=== PATIENT | male | born 1955 | race Caucasian/White ===

== ENCOUNTER 2024-07-30 11:03 | Outpatient (OUT) | payer OTHER, SELFPAY ==
--- NOTE | 2024-07-30 | XR_ITS ---
The [address] [address] Patient Name: GEO CARRASQUILLO MRN: [id number] date: 1955 Sex: M Assigned Patient Location: Current Patient Location: Accession/Order Number: [id number] Exam Date: 07/30/2024 11:22 Report Date: 08/01/2024 07:01 At the request of: ANANT MALIK Procedure: XR foot LT min 3V PROCEDURE: XR ankle LT min 3V, XR foot LT min 3V COMPARISON: None. HISTORY: LEFT ANKLE PAIN FINDINGS: BONES:Ankle fusion utilizing a retrograde intramedullary nail and proximally and distally. Some lucency surrounding the nail could represent loosening. Interval change cannot be determined as there are no prior comparisons. Degenerative changes with joint space narrowing and marginal osteophyte formation. 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 SOFT TISSUES:Negative. No visible soft tissue swelling. EFFUSION:None visible. OTHER: Negative. XR/XR foot LT min 3V IMPRESSION: Ankle fusion with suspected loosening. No mechanical failure Electronically authenticated by: CAS MENDIOLA Date: 08/01/2024 07:01
--- NOTE | 2024-07-30 | XR_ITS ---
The [address] [address] Patient Name: GEO CARRASQUILLO MRN: [id number] date: 1955 Sex: M Assigned Patient Location: Current Patient Location: Accession/Order Number: [id number] Exam Date: 07/30/2024 11:22 Report Date: 08/01/2024 07:01 At the request of: ANANT MALIK Procedure: XR ankle LT min 3V PROCEDURE: XR ankle LT min 3V, XR foot LT min 3V COMPARISON: None. HISTORY: LEFT ANKLE PAIN FINDINGS: BONES:Ankle fusion utilizing a retrograde intramedullary nail and proximally and distally. Some lucency surrounding the nail could represent loosening. Interval change cannot be determined as there are no prior comparisons. Degenerative changes with joint space narrowing and marginal osteophyte formation. 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 SOFT TISSUES:Negative. No visible soft tissue swelling. EFFUSION:None visible. OTHER: Negative. XR/XR ankle LT min 3V IMPRESSION: Ankle fusion with suspected loosening. No mechanical failure Electronically authenticated by: CAS MENDIOLA Date: 08/01/2024 07:01
== END 2024-07-30 11:04 | disposition home or self-care (01) ==
PROVIDERS: Visit Provider Podiatrist Foot & Ankle Surgery
DX: M25.572 Pain in left ankle and joints of left foot (principal); M24.672 Ankylosis, left ankle
CPT/HCPCS: 73610; 73630

== ENCOUNTER 2024-09-04 11:53 | Outpatient (OUT) | payer OTHER, SELFPAY | END 2024-09-04 11:54 | disposition home or self-care (01) | PROVIDERS: Visit Provider Podiatrist Foot & Ankle Surgery | DX: Z01.818 Encounter for other preprocedural examination (principal); M19.072 Primary osteoarthritis, left ankle and foot; M96.0 Pseudarthrosis after fusion or arthrodesis ==

== ENCOUNTER 2024-09-17 07:14 | Day surgery (SDC) | payer OTHER, SELFPAY ==
[2024-09-04 12:01] VITALS: BP 178/84; PULSE 106; TEMP 36.3; O2SAT 96; BMI 31.5
--- NOTE | 2024-09-16 15:44 | SWNOTE1 ---
DARIUS received a phone call from Marleny at [facility]. This patient will be coming tomorrow and having a surgery by Dr. Pringle. Pt will need wheelchair, per pt's request. Pt only has [employer] [place]. Unsure if any DME will run it through pt's [employer] insurance. Marleny will request Dr. Pringle write a script and document need for wheelchair. DARIUS will work on it tomorrow. Pt may be better to go to a [employer] and see if he can borrow one. DARIUS to call various [employer]. Pt does live in [place].
[2024-09-17] VITALS (17 sets, daily range): BP systolic 112–154; BP diastolic 60–88; PULSE 90–127; TEMP 36.1–37.1; O2SAT 94–97; BMI 31.5
--- NOTE | 2024-09-17 | FL_ITS ---
[place] [id number] Patient Name: GEO CARRASQUILLO MRN: [id number] date: 1955 Sex: M Assigned Patient [facility] Current Patient Location: [place] Accession/Order Number: [id number] Exam Date: 09/17/2024 12:43 Report Date: 09/18/2024 09:32 At the request of: ANANT MALIK Procedure: FL fluoroscopy <1hr NON-READ EXAM: FL fluoroscopy <1hr NON-READ HISTORY: TECHNIQUE: FINDINGS: Please see Operative Report. Electronically authenticated by: RADIOLOGIST NO Date: 09/18/2024 09:32
--- NOTE | 2024-09-17 07:15 | ECG_ITS ---
The [facility] Test Date: 2024-09-17 Pat Name: Preston Zhang Department: Room: - Gender: Male [employer]: : 1955 Requested By: ANANT MALIK Order Number: [id number] Reading MD: KATIE GRADY Measurements Intervals [place] Rate: 84 P: 50 [place]: 197 QRS: 40 QRSD: 146 T: 17 QT: 396 QTc: 470 Interpretive Statements SINUS RHYTHM RIGHT BUNDLE BRANCH BLOCK [120+ ms QRS DURATION, UPRIGHT V1, 40+ ms S IN I/aVL/V4/V5/V6] No previous ECG available for comparison Electronically Signed On 09-17-2024 15:42:32 EST by KATIE GRADY
--- OUTSIDE RECORDS SUMMARY | 2024-09-17 07:20 | XMS_ITS | CCD ---
Author Organization [facility] Care Team Providers Care Pole Shaver Name Role Phone MAIRA YOUSIF Unavailable Unavailable MAIRA YOUSIF Unavailable Unavailable Blayne Rodriguez Primary Care Provider Blayne Rodriguez Primary Care Provider Blayne Rodriguez Primary Care Provider Blayne Rodriguez Primary Care Provider [phone] Unavailable Primary Care Provider Unavailabl e Unavailable Primary Care Provider Unavailabl e SOL CORRIGAN Referring Unavailable WEINBERG, RESTORATIONIST R Attending Unavailable [facility], OTHER Primary Care Unavailable [facility] Primary Care Unavailable WEINBERG, RESTORATIONIST R Admitting Unavailable WEINBERG, RESTORATIONIST R Attending Unavailable [facility] Referring Unavailable WEINBERG, RESTORATIONIST R Attending Unavailable WEINBERG, RESTORATIONIST R Referring Unavailable [facility] Primary Care Unavailable [facility] Primary Care Unavailable WEINBERG, RESTORATIONIST R Attending Unavailable [facility] Referring Unavailable [facility] Primary Care Unavailable WEINBERG, RESTORATIONIST R Referring Unavailable WEINBERG, RESTORATIONIST R Attending Unavailable WEINBERG, RESTORATIONIST R Referring Unavailable WEINBERG, RESTORATIONIST R Attending Unavailable [facility] Primary Care Unavailable DUANE BRAGA Consulting Unavailable DUANE BRAGA Admitting Unavailable MARIA LUZ MEEKS Attending Unavailable LESLEE MORALES Consulting Unavailable GILDARDO MONET Consulting Unavailable KARISSA LAW Consulting Unavailable PARDEEP INFANTE Admitting Unavailable PARDEEP INFANTE Attending Unavailable CASSI GRULLON Referring Unavailable DARSHANA COX Consulting Unavailable LOSOLEDAD, AZALEA Consulting Unavailable MUMTAZ NORRIS Consulting Unavailable TRUSROM Daugherty Referring Unavailable Unavailable Primary Care Provider Unavailabl e [facility], Other Primary Care P rovider Zenaida Street MD Unavailable Kelly OUTSOLE COMPRESSOR-PHYSICAL MEDICINE SPECIALIST, Barbie Ordaz Unavailable [facility], Other Primary Care P rovider Unavailable Primary Care Provider Unavailabl e [facility], Other Primary Care P rovider Sandee HANSON, Alex Barnard Primary Care Unavailab joelle Narvaez MD, Hao Mondragon Attending Unavailabl lucille Narvaez MD, Hao Mondragon Attending Unavailabl e Alex Ignacio MD Primary Care Unavailab joelle Delaney MD, Alexis Mullen Admitting Unavail able Elaina HANSON, Alexis Mullen Attending Unavail able Carlo Zepeda MD Consulting Unavailable Sandee HANSON, Alex Barnard Primary Care Unavailab joelle Medina MD, Sandrine Cedeño Consulting Unavail able [facility], Other Primary Care P rovider ABBEY DE PAZ Referring Unavailable JUAN ALBERTOABBEY Referring Unavailable LANDEN VALDES Attending Unavailable ABBEY DE PAZ Referring Unavailable ABBEY DE PAZ Referring Unavailable ABBEY DE PAZ Referring Unavailable ABBEY DE PAZ Referring Unavailable ABBEY DE PAZ Referring Unavailable JUAN ALBERTOABBEY DONALDSON Referring Unavailable JUAN ALBERTOABBEY DONALDSON Referring Unavailable JUAN ALBERTOABBEY CABRAL Referring Unavailable CRISTOPHER MOREIRA Referring Unavailable ABBEY DE PAZ Referring Unavailable ANANT MALIK Referring Unavailable AROLDO MONTEJO Admitting Unavailable AROLDO MONTEJO Attending Unavailable SELF, SELF Referring Unavailable [facility] Primary Care Unavailable CRISTOPHER MOREIRA T Attending Unavailable SELF, SELF Referring Unavailable [facility] Primary Care Unavailable CRISTOPHER MOREIRA Attending Unavailable [facility] Primary Care Unavailable CRISTOPHER MOREIRA Attending Unavailable SELF, SELF Referring Unavailable [facility] Primary Care Unavailable SELF, SELF Referring Unavailable MAJO NELSON Attending Unavailable [facility] Primary Care Unavailable ERI, CRISTOPHER T Referring Unavailable ERI, CRISTOPHER T Attending Unavailable ERI, CRISTOPHER T Referring Unavailable ERI, CRISTOPHER T Attending Unavailable [facility] OTHER Primary Care Unavailable ERI, CRISTOPHER T Referring Unavailable ERI, CRISTOPHER T Attending Unavailable [facility] Primary Care Unavailable ERI, CRISTOPHER T Referring Unavailable [facility] Primary Care Unavailable ERI, CRISTOPHER T Attending Unavailable [facility] Primary Care Unavailable MAJO NELSON Attending Unavailable MAJO NELSON Referring Unavailable Allergies Allergy Classification Reported Allergen(s) Allergy Type Date of Onset Reaction(s) Facility (1 source) No Known Medication Allergies; Translations: [No Known Medication Allergies] Propensity to adverse reactions to drug (disorder) [facility] Rep[facility] Medications Current Medications Medication Drug Class(es) Dates Sig (Normalized) Sig (Original) Acetaminophen / HYDROcodone (1 source) Opioid Agonist Start: 11-25-2022 HYDROcodone-acetam inophen (NORCO) 5-325 MG per tablet 1 tablet apixaban 2.5 mg oral tablet (13 sources) Factor Xa Inhibitor Start: 03-01-2023 End: 03-01-2023 take 1 tablet by mouth every twelve hours apixaban 2.5 MG tablet Indications: DVT ppx Take 1 tablet by mouth every 12 hours. 60 tablet 0 03/01/2023 Active azithromycin 250 mg oral tablet (2 sources) Macrolide Antimicrobial Start: 09-28-2019 End: 10-02-2019 azithromycin (ZITHROMAX Z-EUGENE) 250 MG tablet Take 2 tablets (500 mg) on Day 1, and then take 1 tablet (250 mg) on days 2 through 5. 1 packet 0 09/28/2019 10/02/2019 Active benzonatate 100 mg oral capsule (2 sources) Non-narcotic Antitussive Start: 09-28-2019 End: 10-05-2019 take 1 capsule by mouth three times daily as needed for cough benzonatate (TESSALON PERLES) 100 MG capsule Take 1 capsule by mouth 3 times daily as needed for Cough 21 capsule 0 09/28/2019 10/05/2019 Active cetirizine hydrochloride 10 mg oral tablet (1 source) Histamine-1 Receptor Antagonist Start: 10-14-2020 take 10 mg by mouth once daily 10 mg, Oral, DAILY, First dose on Mon10/14/20 at 0900 Start: 10-14-2020 take 10 mg by mouth once daily 10 mg, Oral, DAILY, First dose on Mon10/14/20 at 0900 clobetasol propionate 0.25 mg/ml topical cream (5 sources) Corticosteroid Clobetasol Propi emily 0.025 % Cream Apply 1 Application topically daily. 0 Active cyclobenzaprine hydrochloride 5 mg oral tablet (20 sources) Muscle Relaxant Start: 02-29-20 End: 03-01-20 take 1 tablet by mouth three times daily as needed for muscle spasms Cyclobenzaprine 5 MG tablet Take 1 tablet by mouth 3 times daily as needed for Muscle spasms. 21 tablet 03/01/2023 Active Start: 12-30-2022 End: 01-02-2023 take 1 tablet by mouth three times daily as needed for muscle spasms Cyclobenzaprine 5 MG tablet Take 1 tablet by mouth 3 times daily as needed for Muscle spasms. 21 tablet 0 01/02/2023 Active Start: 07-05-2022 End: 07-15-2022 take 1 tablet by mouth twice daily as needed for muscle spasms cyclobenzaprine (FLEXERIL) 10 MG tablet Indications: Septic arthritis of left ankle, due to unspecified organism (HCC) , Rupture of left posterior tibialis tendon, subsequent encounter Take 1 tablet by mouth 2 times daily as needed for Muscle spasms 20 tablet 0 07/05/2022 07/15/2022 Active dextromethorphan hydrobromide 3 mg/ml / promethazine hydrochloride 1.25 mg/ml oral solution (1 source) Phenothiazine, Uncompetitive D-plfboj-M-aspartate Receptor Antagonist, Sigma-1 Agonist Start: 09-30-2019 End: 10-07-2019 promethazine-dextromethorpha n (PROMETHAZINE-DM) 6.25-15 MG/5ML syrup Take 5 mLs by mouth 4 times daily as needed for Cough 50 mL 0 09/30/2019 10/07/2019 Active docusate sodium 100 mg oral capsule (20 sources) Start: 02-28-2023 End: 03-01-2023 take 1 capsul e by mouth twice daily Docusate 100 MG capsule Take 1 capsule by mouth 2 times daily. 60 capsule 0 03/01/2023 Active Start: 12-30-2022 End: 01-02-2023 Docusate (COLACE) capsule 10 0 mg Start: 06-24-2022 End: 07-24-2022 take 1 capsule by mouth in the morning docusate sodium (COLACE) 100 MG capsule Take 1 capsule by mouth in the morning and 1 capsule before bedtime. 60 capsule 0 06/24/2022 07/24/2022 Active docusate sodium 50 mg / sennosides, alf 8.6 mg oral tablet (1 source) Start: 10-13-2020 take 1 tablet by mouth twice daily 1 tablet, Oral, 2 TIMES DAILY, First dose on Mon10/13/20 at 2100, Post-op Start: 10-13-2020 take 1 tablet by shantelle th twice daily 1 tablet, Oral, 2 TIMES DAILY, First dose on Mon10/13/20 at 2100, Post-op doxycycline hyclate 100 mg oral tablet (9 sources) Tetracycline-class Drug Start: 06-26-2022 End: 07-19-2022 take 1 tablet by mouth twice daily doxycycline hyclate (VIBRA-TABS) 100 MG tablet Indications: Septic arthritis of left ankle, due to unspecified organism (HCC) Take 1 tablet by mouth 2 times daily for 14 days 28 tablet 0 07/05/2022 07/19/2022 Active 2 ml fentaNYL 0.05 mg/ml injection (5 sources) Opioid Agonist Start: 11-25-2022 fentaNYL (SUBLIMAZE) injection 50 mcg Start: 11-25-2022 fentaNYL (SUBL IMAZE) injection 25 mcg Start: 07-04-2022 End: 07-04-2022 fentaNYL (SUBLIMAZE) injecti on 50 mcg Start: 06-24-2022 End: 06-24-2022 take 1 dose by mouth once 100 mcg, IntraVENous, ONCE, 1 dose, On Mon06/24/22 at 0315 If oral and IV narcotics ordered, use oral first and only use IV if oral is ineffective or cannot take oral. Do Not give oral and IV within 1 hour of each other unless specifically ordered. gabapentin 100 mg oral capsule (20 sources) Anti-epileptic Agent Start: 02-28-2023 End: 03-15-2023 take 1 capsule by mouth three times daily Gabapentin 100 MG capsule Take 1 capsule by mouth 3 times daily for 14 days. 42 capsule 0 03/01/2023 Active Start: 12-30-2022 End: 02-22-2023 take 1 capsule by mouth three times daily Gabapentin 100 MG capsule Take 1 capsule by mouth 3 times daily for 14 days. 42 capsule 0 01/02/2023 02/22/2023 Discontinued (Medication Reconciliation (suppress cancel msg)) Start: 08-11-2022 End: 07-01-2023 take 2 capsules by mouth three times daily gabapentin (NEURONTIN) 300 MG capsule Take 2 capsules by mouth 3 times daily for 30 days. 90 capsule 3 08/11/2022 07/01/2023 Discontinued (LIST CLEANUP) Start: 06-24-2022 End: 12-21-2022 gabapentin (NEURONTIN) 300 M G capsule Take 1 capsule by mouth in the morning and 1 capsule before bedtime. Do all this for 180 days. Intended supply: 90 days. 180 capsule 1 06/24/2022 12/21/2022 Active 1 ml hydrALAZINE hydrochloride 20 mg/ml injection (1 source) Arteriolar Vasodilator Start: 06-26-2022 hydrALAZINE (APRESOLINE) injection 10 mg magnesium hydroxide 80 mg/ml oral suspension (1 source) Start: 10-13-2020 take 30 mL by mouth once daily as needed for constipation 30 mL, Oral, DAILY PRN, Constipation, Starting 10/13/20 at 1734 First line therapy for constipation. Post-op 2 ml metoclopramide 5 mg/ml prefilled syringe (1 source) Dopamine-2 Receptor Antagonist Start: 11-25-2022 End: 11-26-2022 metoclopramide (REGLAN) injection 10 mg morphine (PF) injection 2 mg (2 sources) Start: 06-24-2022 morphine (PF) injection 2 mg Start: 10-13-2020 morphine (PF) injection 2 mg Multiple Vitamin (Multi-Vitamins) tablet (4 sources) Start: 01-03-2023 take 1 tablet by mouth once daily Multiple Vitamin (Multi-Vitamins) tablet Indications: Septic arthritis of left ankle Take 1 tablet by mouth daily. 30 tablet 0 01/03/2023 Active ondansetron 4 mg oral tablet (14 sources) Serotonin-3 Receptor Antagonist Start: 03-01-2023 take 1 tablet by mouth every six hours as needed Ondansetron 4 MG tablet Take 1 tablet by mouth every 6 hours as needed for Nausea / Vomiting. 10 tablet 0 03/01/2023 Active Start: 02-28-2023 End: 03-01-2023 take 1 tablet by mouth every six hours as needed Ondansetron (ZOFRAN) tablet 4 mg Start: 12-30-2022 End: 01-02-2023 take 1 tablet by mouth every six hours as needed Ondansetron (ZOFRAN) tablet 4 mg ondansetron (ZOFRAN-ODT) disintegrating tablet 4 mg (2 sources) Start: 06-24-2022 ondansetron (Z OFRAN-ODT) disintegrating tablet 4 mg Start: 10-13-2020 ondansetron (Z OFRAN-ODT) disintegrating tablet 4 mg oxyCODONE hydrochloride 5 mg oral tablet (20 sources) Opioid Agonist Start: 02-28-2023 End: 03-01-2023 take 1 tablet by mouth every four hours as needed oxyCODONE (ROXICODONE) tablet 5 mg Start: 02-28-2023 End: 03-08-2023 take 1 tablet by mouth every four hours as needed oxyCODONE 5 MG tablet Indications: Arthritis of left ankle Take 1 tablet by mouth every 4 hours as needed for up to 7 days. 40 tablet 0 03/06/2023 Active Start: 01-02-2023 End: 01-09-2023 take 1-2 tablets by mouth every six hours as needed for pain oxyCODONE 5 MG tablet Indications: Chronic osteomyelitis of left ankle , Acute postoperative pain Take 1-2 tablets by mouth every 6 hours as needed for Moderate Pain or Severe Pain for up to 7 days. 50 tablet 0 01/02/2023 Active Start: 12-30-2022 End: 01-02-2023 take 1 tablet by mouth every four hours as needed oxyCODONE (ROXICODONE) tablet 5 mg Start: 07-06-2022 End: 07-13-2022 oxyCODONE (ROXICODONE) 5 MG immediate release tablet Indications: Post-op pain Take 1 tablet by mouth every 4-6 hours as needed for Pain for up to 7 days. May take 2 tablets for severe breakthrough pain. 40 tablet 0 07/06/2022 07/13/2022 Active Start: 06-26-2022 End: 07-03-2022 oxyCODONE (ROXICODONE) 5 MG immediate release tablet Indications: Post-op pain Take 1 tablet by mouth every 6 hours as needed for Pain (for severe breakthrough pain) for up to 7 days. May take 2 tablets for severe breakthrough pain. 50 tablet 0 06/26/2022 07/03/2022 Active Start: 06-24-2022 oxyCODONE (BISI ICODONE) immediate release tablet 5 mg Start: 06-23-2022 oxyCODONE (BISI ICODONE) immediate release tablet 10 mg Start: 10-13-2020 oxyCODONE (BISI ICODONE) immediate release tablet 5 mg End: 07-01-2023 oxyCODONE 5 MG capsule Take 5 mg by mouth every 4 hours as needed for Pain. Patient takes every 5 hrs, PRN for pain 0 07/01/2023 Discontinued (LIST CLEANUP) thiamine 100 mg oral tablet (7 sources) Start: 01-04-2023 take 1 tablet by mouth once daily Thiamine 100 MG tablet Indications: Septic arthritis of left ankle Take 1 tablet by mouth daily. 30 tablet 0 01/04/2023 Active Start: 01-04-2023 take 1 tablet by shantelle th once daily Thiamine 100 MG tablet Indications: Septic arthritis of left ankle Take 1 tablet by mouth daily. 30 tablet 0 01/04/2023 Active Start: 01-04-2023 End: 01-02-2023 Thiamine tablet 100 mg Start: 12-30-2022 End: 01-02-2023 Thiamine tablet 100 mg Start: 06-24-2022 thiamine table t 100 mg vancomycin (VANCOCIN) 1250 m g in sodium chloride 0.9% 250 mL IVPB (1 source) Start: 06-26-2022 vancomycin (VA NCOCIN) 1250 mg in sodium chloride 0.9% 250 mL IVPB vancomycin (VANCOCIN) intermittent dosing (placeholder) (1 source) Start: 06-24-2022 vancomycin (VA NCOCIN) intermittent dosing (placeholder) Completed/Discontinued Medications Medication Drug Class(es) Dates Sig (Normalized) Sig (Original) acetaminophen 325 mg oral tablet (20 sources) Start: 02-28-2023 End: 03-01-2023 take 650 mg by mouth every six hours, then take 4000 mg by mouth every twenty-four hours 650 mg, Oral, EVERY 6 HOURS, First dose on Mon02/28/23 at 1445, Until Discontinued Maximum dose of acetaminophen is 4000 mg from all sources in 24 hours. Start: 01-02-2023 take 2 tablets by mo uth every six hours Acetaminophen 325 MG tablet Take 2 tablets by mouth every 6 hours. 1 tablet 01/02/2023 Active Start: 12-30-2022 End: 01-02-2023 Acetaminophen (TYLENOL) tabl et 650 mg Start: 11-25-2022 acetaminophen (TYLENOL) tablet 650 mg Start: 06-24-2022 End: 01-02-2023 take 2 tablets by mouth every six hours as needed for pain acetaminophen (TYLENOL) 500 MG tablet Take 2 tablets by mouth every 6 hours as needed for Pain 180 tablet 5 06/24/2022 Active Start: 06-24-2022 take 650 mg by mouth every six hours, then take 4000 mg by mouth every twenty-four hours 650 mg, Oral, EVERY 6 HOURS, First dose on Mon06/24/22 at 0315, Until Discontinued Maximum dose of acetaminophen is 4000 mg from all sources in 24 hours. Start: 10-13-2020 End: 10-13-2020 take 650 mg by mouth every six hours, then take 4000 mg by mouth every twenty-four hours 650 mg, Oral, EVERY 6 HOURS, First dose on Mon10/13/20 at 1800 Maximum dose of acetaminophen is 4000 mg from all sources in 24 hours. Post-op acetaminophen 325 mg / oxyCODONE hydrochloride 5 mg oral tablet (18 sources) Opioid Agonist Start: 02-08-2023 End: 03-01-2023 take 1 tablet by mouth every eight hours as needed for pain oxyCODONE-acetaminophen 5-325 MG per tablet Indications: Staphylococcal arthritis of left ankle Take 1 tablet by mouth every 8 hours as needed for Moderate Pain or Severe Pain for up to 5 days. 15 tablet 0 02/08/2023 03/01/2023 Discontinued (Stop Taking at Discharge) Start: 01-12-2023 End: 01-19-2023 take 1 tablet by mouth every six hours as needed oxyCODONE-acetaminophen 5-325 MG per tablet Indications: Postop check , Staphylococcal arthritis of left ankle , Arthritis of left subtalar joint Take 1 tablet by mouth every 6 hours as needed for up to 7 days. 28 tablet 0 01/12/2023 01/19/2023 Active Start: 11-25-2022 End: 12-02-2022 oxyCODONE-acetaminophen (PER COCET) 5-325 MG per tablet Indications: Septic arthritis of left ankle, due to unspecified organism (HCC) Take 2 tablets by mouth every 6 hours as needed for Pain for up to 7 days. Intended supply: 7 days. Take lowest dose possible to manage pain Max Daily Amount: 8 tablets 40 tablet 0 11/25/2022 12/02/2022 Start: 07-04-2022 End: 07-04-2022 oxyCODONE-acetaminophen (PER COCET) 5-325 MG per tablet 1 tablet Start: 10-13-2020 End: 10-20-2020 take 1 tablet by mouth every four hours as needed for pain, then take 1 tablet by mouth as needed for pain oxyCODONE-acetaminophen (PERCOCET) 5-325 MG per tablet Indications: Postoperative pain Take 1 tablet by mouth every 4 hours as needed for Pain for up to 7 days. Intended supply: 7 days. Take lowest dose possible to manage pain 40 tablet 0 10/13/2020 10/20/2020 Active alteplase 2 MG Recon Soln (6 sources) Start: 01-02-2023 End: 02-22-2023 alteplase 2 MG Recon Soln 2 mg by Intracatheter route once as needed for Catheter Clearance (For an occluded line) for up to 1 dose. 1 Each 0 01/02/2023 02/22/2023 Discontinued (Medication Reconciliation (suppress cancel msg)) Start: 01-02-2023 alteplase 2 MG Recon Soln 2 mg by Intracatheter route once as needed for Catheter Clearance (For an occluded line) for up to 1 dose. 1 Each 0 01/02/2023 Active aluminum hydroxide 40 mg/ml / magnesium hydroxide 40 mg/ml / simethicone 4 mg/ml oral suspension (2 sources) Start: 02-28-2023 End: 03-01-2023 take 30 mL by mouth every six hours as needed 30 mL, Oral, EVERY 6 HOURS NEEDED, Starting on Mon02/28/23 at 1430, Until Mon03/01/23 at 1535, Indigestion Per 5 mL is equivalent to: (Alum-Mag Hydroxide 200-225 mg and Simethicone 20 mg) and (Alum-Mag Hydroxide 200-200 mg and Simethicone 20 mg) Start: 12-30-2022 End: 01-02-2023 take 30 mL by mouth every six hours as needed alum/mag hydrox.-simethicone oral suspension 30 mL ascorbic acid 250 mg oral tablet (7 sources) Vitamin C Start: 12-30-2022 End: 02-22-2023 take 1 tablet by mouth twice daily Ascorbic acid 250 MG tablet Take 1 tablet by mouth 2 times daily. 60 tablet 0 01/02/2023 02/22/2023 Discontinued (Medication Reconciliation (suppress cancel msg)) aspirin 81 mg delayed release oral tablet (20 sources) Platelet Aggregation Inhibitor, Nonsteroidal Anti-inflammatory Drug Start: 01-02-2023 End: 02-22-2023 take 1 tablet by mouth twice daily aspirin EC [address] Take 1 tablet by mouth 2 times daily. 60 tablet 0 01/02/2023 02/22/2023 Discontinued (Medication Reconciliation (suppress cancel msg)) Start: 11-25-2022 End: 07-01-2023 take 1 tablet by mouth once daily aspirin EC 81 MG EC tablet Take 1 tablet by mouth daily 30 tablet 3 11/25/2022 07/01/2023 Discontinued (LIST CLEANUP) Start: 10-14-2020 take 325 mg by mouth once pooja y 325 mg, Oral, DAILY, First dose on Mon10/14/20 at 0900 Do not crush or break. Post-op Start: 10-13-2020 End: 11-12-2020 take 1 tablet by mouth once daily aspirin 325 MG EC tablet Take 1 tablet by mouth daily 30 tablet 0 10/13/2020 Active baclofen 20 mg oral tablet (20 sources) gamma-Aminobutyric Acid-ergic Agonist Start: 02-28-2023 End: 03-01-2023 take 20 mg by mouth twice daily 20 mg, Oral, 2 TIMES DAILY, First dose on Mon02/28/23 at 1700, Until Discontinued Start: 12-31-2022 End: 01-02-2023 take 20 mg by mouth once daily in the morning 20 mg, Oral, DAILY EVERY MORNING, First dose on Mon12/31/22 at 0900, Until Discontinued End: 01-02-2023 take 1 tablet by mouth twice daily as needed baclofen 10 MG tablet Take 1 tablet by mouth 2 times daily as needed. 0 01/02/2023 Discontinued (Stop Taking at Discharge) End: 06-25-2022 BACLOFEN PO Take by mouth 0 06/25/2022 Discontinued (LIST CLEANUP) BACLOFEN PO Take by mouth 0 Active benzocaine 15 mg / menthol 3.6 mg oral lozenge (2 sources) Standardized Chemical Allergen Start: 02-28-2023 End: 03-01-2023 1 lozenge, Oral, EVERY 2 STONE RS NEEDED, Starting on Mon02/28/23 at 1430, Until Mon03/01/23 at 1535, Sore Throat Max 8 lozenges/day Patient may self-administer. Start: 12-30-2022 End: 01-02-2023 Benzocaine-menthol (CEPACOL) 15-3.6 MG per lozenge 1 lozenge calcium chloride 0.0014 meq/ ml / potassium chloride 0.004 meq/ml / sodium chloride 0.103 meq/ml / sodium lactate 0.028 meq/ml injectable solution (8 sources) Start: 02-28-2023 End: 03-01-2023 Intravenous, at 50 mL/hr, CONTINUOUS, Starting on Mon02/28/23 at 1445, Until Mon03/01/23 at 0621 Start: 02-28-2023 End: 02-28-2023 Lactated ringers IV solution Start: 12-30-2022 End: 12-30-2022 Lactated ringers IV solution Start: 11-25-2022 lactated ringe rs infusion Start: 10-13-2020 End: 10-13-2020 lactated ringers infusion Start: 09-08-2020 lactated ringe rs infusion Start: 08-11-2020 lactated ringe rs infusion carbidopa 25 mg / levodopa 100 mg oral tablet (20 sources) Aromatic Amino Acid Decarboxylation Inhibitor, Aromatic Amino Acid Start: 06-24-2022 End: 06-25-2022 carbidopa-levodopa (SINEMET) 25-100 MG per tablet 1 tablet Start: 10-13-2020 take 1 tablet by shantelle th twice daily 1 tablet, Oral, 2 TIMES DAILY, First dose on Mon10/13/20 at 2100 End: 06-25-2022 take 1 tablet by mouth twice daily carbidopa-levodopa (SINEMET) 25-100 MG per tablet Take 1 tablet by mouth 2 times daily 0 06/25/2022 Discontinued (LIST CLEANUP) take 1 tablet by shantelle th four times daily carbidopa-levodopa (SINEMET) 25-100 MG per tablet Take 1 tablet by mouth 4 times daily 0 Suspended ceFAZolin 2000 mg injection (7 sources) Cephalosporin Antibacterial Start: 02-28-2023 End: 03-01-2023 take 2 g intravenously every eight hours 2 g, Intravenous, Administer over 30 Minutes, EVERY 8 HOURS NON-STANDARD, 2 doses, First dose on Mon02/28/23 at 1800, Last dose on Mon03/01/23 at 0200 Start: 01-02-2023 End: 02-10-2023 inject 1 dose intravenously once daily ceFAZolin injection Total daily dose: 6 g, via continuous IV infusion. Change bag every 12 hours. *diluent and final concentration at discretion of receiving pharmacy* 60 mL 0 01/02/2023 02/10/2023 Active Start: 12-31-2022 End: 12-31-2022 ceFAZolin (ANCEF) 2 g in dex trose 100 mL premix IVPB Start: 10-13-2020 End: 10-14-2020 2 g, Intravenous, EVERY 8 HO URS, 2 doses, First dose on Mon10/13/20 at 2100, Last dose on Mon10/14/20 at 0500, Post-op ceFAZolin (ANCEF) 2 g in dextrose 5 % 100 mL IVPB (1 source) Start: 10-13-2020 End: 10-13-2020 ceFAZolin (ANCEF) 2 g in dextrose 5 % 100 mL IVPB ceFAZolin (ANCEF) 2000 mg in dextrose 5 % 100 mL IVPB (1 source) Start: 11-25-2022 End: 11-25-2022 ceFAZolin (ANCEF) 2000 mg in dextrose 5 % 100 mL IVPB ceFAZolin (ANCEF) 3 g in Sodium chloride 0.9%, with overfill 290 mL IV infusion (1 source) Start: 12-31-2022 End: 01-02-2023 take 3 g intravenously every twelve hours ceFAZolin (ANCEF) 3 g in Sodium chloride 0.9%, with overfill 290 mL IV infusion cefepime (MAXIPIME) 2000 mg IVPB minibag (1 source) Start: 06-23-2022 End: 06-23-2022 cefepime (MAXIPIME) 2000 mg IVPB minibag cefTRIAXone (ROCEPHIN) 1,000 mg in dextrose 5 % 50 mL IVPB mini-bag (12 sources) Start: 12-06-2022 End: 12-06-2022 cefTRIAXone (ROCEPHIN) 1,000 mg in dextrose 5 % 50 mL IVPB mini-bag Start: 12-05-2022 End: 12-05-2022 cefTRIAXone (ROCEPHIN) 1,000 mg in dextrose 5 % 50 mL IVPB mini-bag Start: 12-04-2022 End: 12-04-2022 cefTRIAXone (ROCEPHIN) 1,000 mg in dextrose 5 % 50 mL IVPB mini-bag Start: 12-03-2022 End: 12-03-2022 cefTRIAXone (ROCEPHIN) 1,000 mg in dextrose 5 % 50 mL IVPB mini-bag Start: 12-02-2022 End: 12-02-2022 cefTRIAXone (ROCEPHIN) 1,000 mg in dextrose 5 % 50 mL IVPB mini-bag Start: 12-01-2022 End: 12-01-2022 cefTRIAXone (ROCEPHIN) 1,000 mg in dextrose 5 % 50 mL IVPB mini-bag Start: 11-30-2022 End: 11-30-2022 cefTRIAXone (ROCEPHIN) 1,000 mg in dextrose 5 % 50 mL IVPB mini-bag Start: 11-29-2022 End: 11-29-2022 cefTRIAXone (ROCEPHIN) 1,000 mg in dextrose 5 % 50 mL IVPB mini-bag Start: 11-28-2022 End: 11-28-2022 cefTRIAXone (ROCEPHIN) 1,000 mg in dextrose 5 % 50 mL IVPB mini-bag Start: 11-27-2022 End: 11-27-2022 cefTRIAXone (ROCEPHIN) 1,000 mg in dextrose 5 % 50 mL IVPB mini-bag Start: 11-26-2022 End: 11-26-2022 cefTRIAXone (ROCEPHIN) 1,000 mg in dextrose 5 % 50 mL IVPB mini-bag Start: 11-26-2022 End: 12-02-2022 cefTRIAXone (ROCEPHIN) 1,000 mg in dextrose 5 % 50 mL IVPB mini-bag cefTRIAXone (ROCEPHIN) 1,000 mg in sodium chloride 0.9 % 50 mL IVPB (mini-bag) (2 sources) Start: 12-08-2022 End: 12-08-2022 cefTRIAXone (ROCEPHIN) 1,000 mg in sodium chloride 0.9 % 50 mL IVPB (mini-bag) Start: 12-07-2022 End: 12-07-2022 cefTRIAXone (ROCEPHIN) 1,000 mg in sodium chloride 0.9 % 50 mL IVPB (mini-bag) cholecalciferol 0.01 mg oral tablet (7 sources) Vitamin D Start: 01-03-2023 End: 02-22-2023 take 2 tablets by mouth once daily cholecalciferol 10 MCG (400 UNIT) tablet Take 2 tablets by mouth daily. 60 tablet 0 01/03/2023 02/22/2023 Discontinued (Medication Reconciliation (suppress cancel msg)) Start: 12-30-2022 End: 01-02-2023 cholecalciferol (VITAMIN D3) tablet 800 Units CUSTOM MEDICATION (8 sources) Start: 01-02-2023 End: 02-22-2023 CUSTOM MEDICATION Please hav e the [facility] or Extended Care Facility obtain weekly Chem-6 (Including serum creatinine) without Glucose and CBC w/diff every Monday and fax to [phone], attention Dr. Zenaida Street or BETHEL Mendoza 1 Each 0 01/02/2023 02/22/2023 Discontinued (Medication Reconciliation (suppress cancel msg)) Start: 01-02-2023 CUSTOM MEDICAT ION Please have the [facility] or Extended Care Facility obtain weekly Chem-6 (Including serum creatinine) without Glucose and CBC w/diff every Monday and fax to [phone], attention Dr. Zenaida Street or BETHEL Mendoza 1 Each 0 01/02/2023 Active 1 ml dexamethasone phosphate 4 mg/ml injection (1 source) Corticosteroid Start: 09-28-2019 End: 09-28-2019 dexamethasone (DECADRON) injection 4 mg diazePAM 2 mg oral tablet (1 source) Benzodiazepine Start: 03-01-2023 End: 03-01-2023 Diazepam (VALIUM) tablet 2 mg diclofenac sodium 0.01 mg/mg topical gel (2 sources) Nonsteroidal Anti-inflammatory Drug Start: 08-04-2022 End: 11-25-2022 diclofenac sodium (VOLTAREN) 1 % GEL Indications: Rupture of left posterior tibialis tendon, subsequent encounter , Septic arthritis of left ankle, due to unspecified organism (HCC) Apply 4 g topically 4 times daily as needed for Pain 100 g 0 08/04/2022 11/25/2022 Discontinued (LIST CLEANUP) dimenhyDRINATE 50 mg oral tablet (1 source) Start: 10-13-2020 End: 10-13-2020 dimenhyDRINATE (DRAMAMINE) tablet 50 mg diphenhydrAMINE (2 sources) Histamine-1 Receptor Antagonist Start: 02-28-2023 End: 03-01-2023 take 1 tablet by mouth every six hours as needed diphenhydrAMINE (BENADRYL) tablet 25 mg Start: 12-30-2022 End: 01-02-2023 take 1 tablet by mouth every six hours as needed diphenhydrAMINE (BENADRYL) tablet 25 mg DISABILITY PLACARD (4 sources) Start: 01-25-2023 End: 02-22-2023 DISABILITY PLACARD Disabilit y placard end date 1 year 1 Each 0 01/25/2023 02/22/2023 Discontinued (Medication Reconciliation (suppress cancel msg)) Start: 01-25-2023 DISABILITY ALEIDA CARD Disability placard end date 1 year 1 Each 0 01/25/2023 Active 0.4 ml enoxaparin sodium 100 mg/ml prefilled syringe (2 sources) Low Molecular Weight Heparin Start: 12-31-2022 End: 01-02-2023 Enoxaparin Sodium (LOVENOX) injection 40 mg Start: 06-25-2022 enoxaparin Sod ium (LOVENOX) injection 30 mg famotidine 20 mg oral tablet (2 sources) Histamine-2 Receptor Antagonist Start: 02-28-2023 End: 03-01-2023 take 1 tablet by mouth every twelve hours as needed 20 mg, Oral, EVERY 12 HOURS NEEDED, Starting on Mon02/28/23 at 1430, Until Mon03/01/23 at 1535, GI Upset Start: 12-30-2022 End: 01-02-2023 take 1 tablet by mouth every twelve hours as needed faMOTIdine (PEPCID) tablet 20 mg fexofenadine (7 sources) Histamine-1 Receptor Antagonist End: 06-25-2022 Fexofenadine HCl (RUFINA ALLERGY PO) Take by mouth daily 0 06/25/2022 Discontinued (LIST CLEANUP) Fexofenadine HCl (RUFINA ALLERGY PO) Take by mouth daily 0 Active Fexofenadine HCl (RUFINA ALLERGY PO) Take by mouth daily 0 Suspended folic acid 1 mg oral tablet (10 sources) Start: 01-03-2023 End: 02-22-2023 take 1 tablet by mouth once daily Folic acid 1 MG tablet Indications: Septic arthritis of left ankle Take 1 tablet by mouth daily. 30 tablet 0 01/03/2023 02/22/2023 Discontinued (Medication Reconciliation (suppress cancel msg)) Start: 12-31-2022 End: 01-02-2023 Folic acid (FOLVITE) tablet 1 mg Start: 06-24-2022 folic acid (FO LVITE) tablet 1 mg gadoteridol (PROHANCE) injection 15 mL (1 source) Start: 05-25-2020 End: 05-25-2020 gadoteridol (PROHANCE) injection 15 mL 1 ml HYDROmorphone hydrochloride 1 mg/ml cartridge (3 sources) Opioid Agonist Start: 06-23-2022 End: 06-24-2022 HYDROmorphone (DILAUDID) injection 0.5 mg HYDROmorphone (DILAUDID) injection 0.2 mg (1 source) Start: 02-28-2023 End: 03-01-2023 take 0.2 mg intravenously every four hours as needed HYDROmorphone (DILAUDID) injection 0.2 mg iopamidol (ISOVUE-370) 76 % injection 75 mL (2 sources) Start: 07-04-2022 End: 07-04-2022 iopamidol (ISOVUE-370) 76 % injection 75 mL Start: 06-23-2022 End: 06-23-2022 iopamidol (ISOVUE-370) 76 % injection 75 mL 1 ml ketorolac tromethamine 15 mg/ml cartridge (1 source) Nonsteroidal Anti-inflammatory Drug, Cyclooxygenase Inhibitor Start: 07-01-2023 End: 07-01-2023 ketorolac (TORADOL) injection 15 mg Start: 07-01-2023 End: 07-01-2023 ketorolac (TORADOL) injectio n 15 mg lidocaine hydrochloride 10 mg/ml injectable solution (20 sources) Antiarrhythmic, Amide Local Anesthetic Start: 01-02-2023 End: 01-02-2023 Lidocaine 1% for PICC (XYLOCAINE) 1 % injection SOLN 10-30 mg apply 1 dose transde rmal route once daily lidocaine (LIDODERM) 5 % Place 1 patch onto the skin daily 12 hours on, 12 hours off. Active lidocaine 5 % Pa tch patch Place 1 patch on skin every 24 hours. Max of 12 hours of application then remove. Active End: 06-26-2022 apply 1 dose transdermal route every twelve hours as needed for pain lidocaine (LIDODERM) 5 % Place 1 patch onto the skin as needed for Pain 12 hours on, 12 hours off. 0 06/26/2022 Discontinued (Stop Taking at Discharge) lisinopril 2.5 mg oral tablet (20 sources) Angiotensin Converting Enzyme Inhibitor Start: 12-31-2022 End: 01-02-2023 take 2.5 mg by mouth once daily in the morning 2.5 mg, Oral, DAILY EVERY MORNING, First dose on Mon12/31/22 at 0900, Until Discontinued Start: 06-24-2022 lisinopril (MD INIVIL;ZESTRIL) tablet 10 mg Start: 10-13-2020 take 10 mg by mouth once daily 10 mg, Oral, NIGHTLY, First dose on Mon10/13/20 at 2100 Start: 06-28-2018 lisinopril (MD INIVIL;ZESTRIL) 10 MG tablet nightly 0 06/28/2018 Active End: 02-22-2023 take 2.5 mg by mouth once daily in the morning lisinopril 10 MG tablet Take 2.5 mg by mouth daily every morning. 0 02/22/2023 Discontinued (Medication Reconciliation (suppress cancel msg)) LORazepam (3 sources) Benzodiazepine Start: 12-30-2022 End: 01-02-2023 LORazepam (ATIVAN) tablet 1 mg Start: 06-24-2022 LORazepam (ATI VAN) tablet 1 mg LORazepam (ATIVAN) injection 1 mg (1 source) Start: 12-30-2022 End: 01-02-2023 LORazepam (ATIVAN) injection 1 mg LORazepam (ATIVAN) injection 1-4 mg (1 source) Start: 12-30-2022 End: 01-02-2023 LORazepam (ATIVAN) injection 1-4 mg melatonin 3 mg oral tablet (3 sources) Start: 02-28-2023 End: 03-01-2023 take 6 mg by mouth once daily at bedtime as needed 6 mg, Oral, DAILY AT BEDTIME NEEDED, Starting on Mon02/28/23 at 1430, Until Mon03/01/23 at 1535, Insomnia Start: 12-30-2022 End: 01-02-2023 Melatonin tablet 6 mg Start: 06-25-2022 melatonin tabl et 5 mg meloxicam 15 mg oral tablet (20 sources) Nonsteroidal Anti-inflammatory Drug Start: 09-15-2022 End: 01-02-2023 Meloxicam 15 MG tablet Take 1 tablet by mouth as needed. 0 09/15/2022 01/02/2023 Discontinued (Stop Taking at Discharge) MELOXICAM PO Ezekiel e 5 mg by mouth Active methocarbamol 750 mg oral tablet (20 sources) Muscle Relaxant Start: 06-24-2022 take 750 mg by mouth four times daily as needed 750 mg, Oral, 4 TIMES DAILY PRN, Starting on Mon06/24/22 at 0234, Until Discontinued, Muscle spasms 1 ml morphine sulfate 4 mg/ml cartridge (1 source) Opioid Agonist Start: 06-23-2022 End: 06-23-2022 morphine injection 4 mg Start: 06-23-2022 End: 06-23-2022 morphine injection 4 mg Multi-Vitamins tablet 1 tabl et (1 source) Start: 12-31-2022 End: 01-02-2023 Multi-Vitamins tablet 1 tabl et Multiple Vitamins-Minerals (MULTIVITAMIN ADULTS PO) (7 sources) End: 06-25-2022 Multiple Vitamins-Minerals (MULTIVITAMIN ADULTS PO) Take by mouth daily 0 06/25/2022 Discontinued (LIST CLEANUP) Multiple Vitamin s-Minerals (MULTIVITAMIN ADULTS PO) Take by mouth daily 0 Active Multiple Vitamin s-Minerals (MULTIVITAMIN ADULTS PO) Take by mouth daily 0 Suspended naproxen 500 mg oral tablet (20 sources) Nonsteroidal Anti-inflammatory Drug Start: 01-02-2023 End: 03-01-2023 take 1 tablet by mouth twice daily Naproxen 500 MG tablet Take 1 tablet by mouth 2 times daily for 14 days. 28 tablet 0 01/02/2023 03/01/2023 Discontinued (Stop Taking at Discharge) Start: 12-30-2022 End: 01-02-2023 Naproxen (NAPROSYN) tablet 5 00 mg Start: 06-24-2022 take 500 mg by mouth once daily as needed 500 mg, Oral, DAILY PRN, Starting on Mon06/24/22 at 0235, Until Discontinued, Pain Moderate (4-6) End: 11-25-2022 take 1 tablet by mouth twice daily as needed for pain naproxen (NAPROSYN) 500 MG tablet Take 500 mg by mouth 2 times daily as needed for Pain 0 11/25/2022 Discontinued (Stop Taking at Discharge) take 1 tablet by shantelle th once daily as needed for pain naproxen (NAPROSYN) 500 MG tablet Take 500 mg by mouth daily as needed for Pain 0 Active Perflutren Lipid Microsphere (DEFINITY) 1.5 mL in Normal saline flush 0.9% 8.5 mL (1 source) Start: 01-02-2023 End: 01-02-2023 Perflutren Lipid Microsphere (DEFINITY) 1.5 mL in Normal saline flush 0.9% 8.5 mL polyethylene glycol 3350 [id number] mg powder for oral solution (1 source) Osmotic Laxative Start: 06-24-2022 17 g, Oral, D AILY PRN, Starting on Mon06/24/22 at 0235, Until Discontinued, Constipation First line therapy for constipation polyvinyl alcohol 0.014 ml/ml / povidone 6 mg/ml ophthalmic solution (2 sources) Start: 02-28-2023 End: 03-01-2023 take 1 drop(s) into the eye(s) every two hours as needed 1 drop, Both Eyes, EVERY 2 HOURS NEEDED, Starting on Mon02/28/23 at 1430, Until Mon03/01/23 at 1535, Dry Eyes Patient may self-administer. Start: 12-30-2022 End: 01-02-2023 take 1 drop(s) into the eye(s) every two hours as needed Polyvinyl Alcohol-Povidone PF (REFRESH) ophthalmic solution 1 drop rOPINIRole 2 mg oral tablet (20 sources) Nonergot Dopamine Agonist Start: 02-28-2023 End: 03-01-2023 take 2 mg by mouth twice daily 2 mg, Oral, 2 TIMES DAILY, First dose on Mon02/28/23 at 1700, Until Discontinued Max 24 mg/day Start: 12-31-2022 End: 01-02-2023 rOPINIRole (REQUIP) tablet 2 mg Start: 06-25-2022 End: 12-30-2022 take 1 mg by mouth twice daily 1 mg, Oral, 2 TIMES NAEEM LY, First dose on Mon12/30/22 at 1745, Until Discontinued Max 24 mg/day 1000 ml sodium chloride 9 mg/ml injection (20 sources) Start: 02-28-2023 End: 03-01-2023 Intravenous, at 20 mL/hr, NEEDED, Starting on Mon02/28/23 at 1430, Until Mon03/01/23 at 1535, Carrier Fluid - See Admin Inst. 250mL 0.9NS to be used as carrier fluid for intermittent small volume or piggyback medication administration as needed. Infusion rate of the carrier fluid should be set at 20 mL/hr unless the rate as the intermittent medication is less than 20 mL/hr. For intermittent medications with a rate less than 20 mL/hr set the carrier fluid at that rate of the intermittent or piggy back medication. Start: 12-30-2022 End: 01-02-2023 Sodium chloride 0.9% IV solu tion 250 mL Start: 12-08-2022 End: 12-09-2022 sodium chloride flush 0.9 % injection 5-40 mL Start: 12-05-2022 End: 12-07-2022 sodium chloride flush 0.9 % injection 5-40 mL Start: 11-28-2022 End: 12-04-2022 sodium chloride flush 0.9 % injection 5-40 mL Start: 11-25-2022 sodium chlorid e flush 0.9 % injection 5-40 mL Start: 11-25-2022 0.9 % sodium c hloride infusion Start: 11-25-2022 sodium chlorid e flush 0.9 % injection 5-40 mL Start: 06-25-2022 End: 06-25-2022 0.9 % sodium chloride infusi on Start: 06-24-2022 take 1 dose intraven ously twice daily 5-40 mL, IntraVENous, EVERY 12 HOURS SCHEDULED (2 times per day), First dose on Mon06/24/22 at 0900, Until Discontinued For Line Patency: Peripheral IV = 5 mL; Midline or Central Line = 10 mL/lumen. If following IV push medication, administer flush at same rate as the IV push. Flush volume is determined by type of infusion therapy being given. For non-viscous solutions use: Peripheral IV = 5 mL Midline or Central Line = 10 mL/lumen For viscous solutions (i.e. blood components, parenteral nutrition, contrast media, or after obtaining blood sample) use: Peripheral IV = 10 mL Midline or Central Line = 20 mL/lumen Start: 06-24-2022 sodium chlorid e flush 0.9 % injection 5-40 mL Start: 06-24-2022 End: 06-24-2022 0.9 % sodium chloride infusi on Start: 06-24-2022 IntraVENous, a t 5-250 mL/hr, PRN, if patient receiving piggyback infusions and maintenance fluids are not ordered OR KVO fluids to protect IV site / prevent frequent line interruptions/ long duration, Starting on Mon06/24/22 at 0235 For piggyback infusion, administer at same rate as piggyback for a total of 25 mL. Enter 25 mL into dose field and piggyback rate into rate field of order. If piggyback is infusing at a rate less than 100 mL/hr, enter 25 mL into dose field and 100 mL/hr into rate field of order. For KVO fluids, enter rate of 20 mL/hr or less into rate field of order. Start: 06-24-2022 take 5-40 mL intrave nously once as needed 5-40 mL, IntraVENous, PRN, Starting on Mon06/24/22 at 0235, Until Discontinued, Line Care, After every IV line use For Line Patency: Peripheral IV = 5 mL; Midline or Central Line = 10 mL/lumen. If following IV push medication, administer flush at same rate as the IV push. Flush volume is determined by type of infusion therapy being given. For non-viscous solutions use: Peripheral IV = 5 mL Midline or Central Line = 10 mL/lumen For viscous solutions (i.e. blood components, parenteral nutrition, contrast media, or after obtaining blood sample) use: Peripheral IV = 10 mL Midline or Central Line = 20 mL/lumen Start: 10-13-2020 10 mL, Intrave nous, EVERY 12 HOURS SCHEDULED (2 times per day), First dose on Mon10/13/20 at 2100, Post-op Start: 10-13-2020 Intravenous, a t 100 mL/hr, CONTINUOUS, Starting Mon10/13/20 at 1800, Post-op Start: 10-13-2020 take 10 mL intravenous route o nce 10 mL, Intravenous, PRN, Line Care, Starting Mon10/13/20 at 1734 After every IV line use Post-op Start: 09-08-2020 sodium chlorid e flush 0.9 % injection 10 mL Start: 09-08-2020 sodium chlorid e flush 0.9 % injection 10 mL Start: 08-11-2020 sodium chlorid e flush 0.9 % injection 10 mL Start: 08-11-2020 sodium chlorid e flush 0.9 % injection 10 mL traMADol hydrochloride 50 mg oral tablet (20 sources) Opioid Agonist Start: 06-24-2022 End: 01-02-2023 traMADol (ULTRAM) 50 MG tablet Indications: Septic arthritis of left ankle, due to unspecified organism (HCC) Take 1 tablet by mouth every 6 hours as needed for Pain for up to 8 days. Intended supply: 5 days. Take lowest dose possible to manage pain 30 tablet 0 06/24/2022 06/26/2022 Discontinued (Stop Taking at Discharge) tranexamic acid 650 mg oral tablet (1 source) Antifibrinolytic Agent Start: 10-13-2020 End: 10-13-2020 tranexamic acid (LYSTEDA) tablet 1,950 mg traZODone hydrochloride 50 mg oral tablet (20 sources) Serotonin Reuptake Inhibitor Start: 02-28-2023 End: 03-01-2023 take 100 mg by mouth once daily at bedtime 100 mg, Oral, DAILY AT BEDTIME, First dose on Mon02/28/23 at 2100, Until Discontinued Start: 06-24-2022 End: 01-02-2023 take 100 mg by mouth once daily at bedtime 100 mg, Oral, DAILY AT BEDTIME, First dose on Mon12/30/22 at 2100, Until Discontinued Start: 10-13-2020 take 100 mg by mouth once daily as needed for sleep 100 mg, Oral, NIGHTLY PRN, Sleep, Starting Mon10/13/20 at 2100 take 2 tablets by [facility] once daily as needed for sleep traZODone (DESYREL) 50 MG tablet Take 100 mg by mouth nightly as needed for Sleep 0 Active 200 ml vancomycin 5 mg/ml injection (1 source) Glycopeptide Antibacterial Start: 12-31-2022 End: 12-31-2022 1,000 mg (rounded from 1,036.5 mg = 15 mg/kg 69.1 kg Adjusted weight), Intravenous, Administer over 120 Minutes, EVERY 12 HOURS NON-STANDARD, First dose on Mon12/31/22 at 0430, Until Discontinued Indication for treatment with Vancomycin - Culture/Source: L ankle SA Extravasation Risk vancomycin (VANCOCIN) 1,250 mg in dextrose 5 % 250 mL IVPB (1 source) Start: 06-23-2022 End: 06-23-2022 vancomycin (VANCOCIN) 1,250 mg in dextrose 5 % 250 mL IVPB vancomycin (VANCOCIN) 1000 mg in sodium chloride 0.9% 250 mL IVPB (1 source) Start: 06-24-2022 End: 06-26-2022 vancomycin (VANCOCIN) 1000 mg in sodium chloride 0.9% 250 mL IVPB Zinc (7 sources) End: 06-25-2022 ZINC PO Take by mouth daily 0 06/25/2022 Discontinued (LIST CLEANUP) ZINC PO Take by mouth daily 0 Active ZINC PO Take by mouth daily 0 Suspended Problems Active Problems Problem Classification Problem Date Documented Date Episodic/Chronic Alcohol-related disorders (20 sources) Alcohol abuse; Translations: [Alcohol abuse, uncomplicated] Onset: 06-24-2022 Chronic Bacterial infection; unspecified site (1 source) Bacteremia; Translations: [Bacteremia] Episodic Essential hypertension (20 sources) Essential hypertension; Translations: [Essential (primary) hypertension] Onset: 06-24-2022 Chronic Infective arthritis and osteomyelitis (except that caused by tuberculosis or sexually transmitted disease) (20 sources) Chronic osteomyelitis of left ankle; Translations: [Other chronic osteomyelitis, left ankle and foot] Onset: 12-30-2022 Chronic Osteoarthritis (20 sources) Arthritis of left subtalar joint; Translations: [Primary osteoarthritis, left ankle and foot] Onset: 02-28-2023 Chronic Other aftercare (2 sources) Surgical follow-up; Translations: [Encounter for follow-up examination after completed treatment for conditions other than malignant neoplasm] Episodic Other connective tissue disease (1 source) Tendinitis of left posterior tibial tendon; Translations: [Posterior tibial tendinitis, left leg] Episodic Other connective tissue disease (3 sources) Chronic pain of left foot; Translations: [Pain in left foot] 01-17-2024 Episodic Other connective tissue disease (3 sources) History of arthrodesis of ankle; Translations: [Arthrodesis status] 01-17-2024 Episodic Other connective tissue disease (2 sources) Pain in left foot; Translations: [Pain in left foot] Onset: 06-20-2024 Episodic Other connective tissue disease (2 sources) Arthrodesis status; Translations: [Arthrodesis status] Onset: 06-20-2024 Episodic Other hereditary and degenerative nervous system conditions (20 sources) Restless legs; Translations: [Restless legs syndrome] Onset: 06-24-2022 Chronic Other lower respiratory disease (2 sources) Cough; Translations: [Cough] Episodic Other lower respiratory disease (1 source) Dyspnea; Translations: [Dyspnea, unspecified] Episodic Other lower respiratory disease (2 sources) Rib pain; Translations: [Rib Pain (injury)] Onset: 08-04-2024 Episodic Other nervous system disorders (20 sources) Disorder of brain; Translations: [Encephalopathy, unspecified] Onset: 08-09-2022 08-09-2022 Chronic Other nervous system disorders (2 sources) Chronic pain syndrome; Translations: [Chronic pain syndrome] Onset: 06-13-2024 Chronic Other nervous system disorders (2 sources) Other chronic pain; Translations: [Other chronic pain] Onset: 06-20-2024 Chronic Other nervous system disorders (3 sources) Postoperative pain ; Translations: [Other acute postprocedural pain] Episodic Other nervous system disorders (1 source) Unspecified abnormal involuntary movements; Translations: [Unspecified abnormal involuntary movements] Onset: 08-09-2022 Episodic Other nervous system disorders (1 source) Other acute postprocedural pain; Translations: [Other acute postprocedural pain] Onset: 06-24-2022 Episodic Other nervous system disorders (2 sources) Acute postoperative pain; Translations: [Other acute postprocedural pain] Episodic Other non-traumatic joint disorders (1 source) Chronic ankle pain; Translations: [Pain in left ankle and joints of left foot] Episodic Other non-traumatic joint disorders (7 sources) Ankle pain; Translations: [Pain in left ankle and joints of left foot] Onset: 08-04-2024 Episodic Other non-traumatic joint disorders (2 sources) Rotator cuff arthropathy of right shoulder; Translations: [Right rotator cuff tear arthropathy] Onset: 10-13-2020 10-13-2020 Residual codes; unclassified (20 sources) Restlessness and agitation; Translations: [Restlessness and agitation] Onset: 08-09-2022 08-09-2022 Chronic Residual codes; unclassified (1 source) Transient alteration of awareness; Translations: [Transient alteration of awareness] Onset: 08-09-2022 Episodic Spondylosis; intervertebral disc disorders; other back problems (1 source) Other intervertebral disc degeneration, lumbar region; Translations: [Other intervertebral disc degeneration, lumbar region] Onset: 04-22-2024 Chronic Unclassified (1 source) Patient encounter status; Translations: [Pre-op testing] Past or Other Problems Problem Classification Problem Date Documented Da te Episodic/Chronic Fluid and electrolyte disorders (20 sources) Hyponatremia; Translations: [Hypo-osmolality and hyponatremia] Onset: 06-25-2022 Episodic Infective arthritis and osteomyelitis (except that caused by tuberculosis or sexually transmitted disease) (20 sources) Infective arthritis of left ankle; Translations: [Pyogenic arthritis, unspecified] Onset: 06-24-2022 Episodic Other connective tissue disease (20 sources) Rotator cuff arthropathy of right shoulder; Translations: [Unspecified rotator cuff tear or rupture of right shoulder, not specified as traumatic] Onset: 10-13-2020 10-13-2020 Episodic Other connective tissue disease (20 sources) Spasmodic movement; Translations: [Cramp and spasm] Onset: 08-09-2022 08-09-2022 Episodic Other connective tissue disease (20 sources) Full thickness rotator cuff tear; Translations: [Complete rotator cuff tear or rupture of left shoulder, not specified as traumatic] Onset: 06-05-2017 06-05-2017 Episodic Other connective tissue disease (2 sources) Plantar fascial fibromatosis; Translations: [Plantar fascial fibromatosis] Onset: 04-02-2024 Episodic Other connective tissue disease (2 sources) Posterior tibial tendinitis, unspecified leg; Translations: [Posterior tibial tendinitis, unspecified leg] Onset: 09-08-2023 Episodic Other fractures (1 source) Wedge compression fracture of fourth lumbar vertebra, initial encounter for closed fracture; Translations: [Wedge compression fracture of fourth lumbar vertebra, initial encounter for closed fracture] Onset: 04-22-2024 Episodic Other nervous system disorders (20 sources) Abnormal involuntary movement; Translations: [Unspecified abnormal involuntary movements] Onset: 08-09-2022 08-09-2022 Episodic Other nervous system disorders (7 sources) Involuntary movement; Translations: [Unspecified abnormal involuntary movements] Onset: 08-09-2022 08-09-2022 Episodic Other non-traumatic joint disorders (20 sources) Acute ankle pain; Translations: [Pain in left ankle and joints of left foot] Onset: 06-24-2022 Episodic Other non-traumatic joint disorders (2 sources) Pain in left ankle and joints of left foot; Translations: [Pain in left ankle and joints of left foot] Onset: 01-01-2024 Episodic Other screening for suspected conditions (not mental disorders or infectious disease) (20 sources) Increased lactic acid level; Translations: [Other specified abnormal findings of blood chemistry] Onset: 08-09-2022 08-09-2022 Episodic Residual codes; unclassified (20 sources) Delirium; Translations: [Disorientation, unspecified] Onset: 08-09-2022 08-09-2022 Episodic Residual codes; unclassified (17 sources) Current drinker; Translations: [Other specified health status] Onset: 02-22-2023 Episodic Residual codes; unclassified (1 source) Pain, unspecified; Translations: [Pain, unspecified] Onset: 09-29-2023 Episodic Spondylosis; intervertebral disc disorders; other back problems (20 sources) Low back pain; Translations: [Lumbar radiculopathy] Onset: 05-19-2021 05-19-2021 Episodic Unclassified (6 sources) Onset: 09-06-2022 09-06-2022 Results Test Name Value Interpretation Reference Range Facility CT ANKLE LEFT WO CONTRASTon 08-16-2024 CT ANKLE LEFT WO CONTRAST EXAMINATION: CT OF THE LEFT ANKLE WITHOUT CONTRAST 08/15/2024 11:35 am TECHNIQUE: CT of the left ankle was performed without the administration of intravenous contrast. Multiplanar reformatted images are provided for review. Automated exposure control, iterative reconstruction, and/or weight based adjustment of the mA/kV was utilized to reduce the radiation dose to as low as reasonably achievable. COMPARISON: 10/13/2022 HISTORY ORDERING SYSTEM PROVIDED HISTORY: Arthropathy of ankle and foot FINDINGS: Bones: Interval intramedullary peter placement across the tibiotalar and subtalar joints with locking screws. No acute fracture. No lytic or destructive osseous lesion. Soft Tissue: Tibiotalar joint demonstrates 50-75% bony fusion predominantly centrally and anteriorly. Subtalar joint demonstrates 0% bony fusion. Midfoot joint spaces and alignment are otherwise maintained. Moderate 1st MTP joint osteoarthritis. Moderate tibiotalar joint effusion. Joint: Nonspecific superficial edema in the ankle. No ulcer crater. IMPRESSION: Tibiotalar joint 50-75% bony fusion. Subtalar joint 0% bony fusion. Interpreted by: Sean Smith MD Signed by: Sean Smith MD 08/16/24 Final result Normal [facility] CT Ankle - left WO contrasto n 08-16-2024 Tibiotalar joint 50-75% bony fusion. Subtalar joint 0% bony fusion. [facility] RIS CONSOLIDATED EXAMINATION: CT OF THE LEFT ANKLE WITHOUT CONTRAST 08/15/2024 11:35 am TECHNIQUE: CT of the left ankle was performed without the administration of intravenous contrast. Multiplanar reformatted images are provided for review. Automated exposure control, iterative reconstruction, and/or weight based adjustment of the mA/kV was utilized to reduce the radiation dose to as low as reasonably achievable. COMPARISON: 10/13/2022 HISTORY ORDERING SYSTEM PROVIDED HISTORY: Arthropathy of ankle and foot FINDINGS: Bones: Interval intramedullary peter placement across the tibiotalar and subtalar joints with locking screws. No acute fracture. No lytic or destructive osseous lesion. Soft Tissue: Tibiotalar joint demonstrates 50-75% bony fusion predominantly centrally and anteriorly. Subtalar joint demonstrates 0% bony fusion. Midfoot joint spaces and alignment are otherwise maintained. Moderate 1st MTP joint osteoarthritis. Moderate tibiotalar joint effusion. Joint: Nonspecific superficial edema in the ankle. No ulcer crater. Sean Shafer MD - 08/16/2024 EXAMINATION: CT OF THE LEFT ANKLE WITHOUT CONTRAST 08/15/2024 11:35 am TECHNIQUE: CT of the left ankle was performed without the administration of intravenous contrast. Multiplanar reformatted images are provided for review. Automated exposure control, iterative reconstruction, and/or weight based adjustment of the mA/kV was utilized to reduce the radiation dose to as low as reasonably achievable. COMPARISON: 10/13/2022 HISTORY ORDERING SYSTEM PROVIDED HISTORY: Arthropathy of ankle and foot FINDINGS: Bones: Interval intramedullary peter placement across the tibiotalar and subtalar joints with locking screws. No acute fracture. No lytic or destructive osseous lesion. Soft Tissue: Tibiotalar joint demonstrates 50-75% bony fusion predominantly centrally and anteriorly. Subtalar joint demonstrates 0% bony fusion. Midfoot joint spaces and alignment are otherwise maintained. Moderate 1st MTP joint osteoarthritis. Moderate tibiotalar joint effusion. Joint: Nonspecific superficial edema in the ankle. No ulcer crater. IMPRESSION: Tibiotalar joint 50-75% bony fusion. Subtalar joint 0% bony fusion. [facility] CT Ankle - left WO contrastO rdered By: Sean Smith on 08-16-2024 [employer] Work Phone: CT Ankle - left WO contrasto n 08-15-2024 Radiology Study observation (narrative) [facility] [employer] XR ANKLE LEFT 3+ VIEWSon 08- 08-2024 XR ANKLE LEFT 3+ VIEWS EXAM: XR ANKLE LE FT 3 VIEWS, 06/20/2024 13:11 PM COMPARISON: January 18, 2024 CLINICAL INDICATIONS: left ankle pain RELEVANT CLINICAL HISTORY: Z98.1:S/P ankle arthrodesis M79.672:Chronic pain in left foot G89.29:Chronic pain in left foot AP, mortise, lateral, WB as trev; FINDINGS: 3 weightbearing images obtained. Redemonstration arthrodesis of the tibiotalar and subtalar joints with a retrograde intramedullary nail. There is partial osseous fusion across the tibiotalar joint. There is no osseous fusion of the posterior subtalar joint. There is persistent lucency around the intramedullary nail and around the fixation screw distally. Hardware does appear stable in position. Soft tissue swelling and vascular calcifications are redemonstrated. IMPRESSION: Redemonstration hindfoot arthrodesis. There is stable lucencies surrounding the distal portion of the retrograde intramedullary nail and surrounding the calcaneal screw. [facility] XR Ankle - left 3 Viewson IMPRESSION: Redemonstration hindfoot arthrodesis. There is stable lucencies surrounding the distal portion of the retrograde intramedullary nail and surrounding the calcaneal screw. OLOGY EXAM: XR ANKLE LEFT 3 VIEWS, 06/20/2024 13:11 PM COMPARISON: January 18, 2024 CLINICAL INDICATIONS: left ankle pain RELEVANT CLINICAL HISTORY: Z98.1:S/P ankle arthrodesis M79.672:Chronic pain in left foot G89.29:Chronic pain in left foot AP, mortise, lateral, WB as trev; FINDINGS: 3 weightbearing images obtained. Redemonstration arthrodesis of the tibiotalar and subtalar joints with a retrograde intramedullary nail. There is partial osseous fusion across the tibiotalar joint. There is no osseous fusion of the posterior subtalar joint. There is persistent lucency around the intramedullary nail and around the fixation screw distally. Hardware does appear stable in position. Soft tissue swelling and vascular calcifications are redemonstrated. RADIOLOGY Erick Rogers MD - 06/20/2024 EXAM: XR ANKLE LEFT 3 VIEWS, 06/20/2024 13:11 PM COMPARISON: January 18, 2024 CLINICAL INDICATIONS: left ankle pain RELEVANT CLINICAL HISTORY: Z98.1:S/P ankle arthrodesis M79.672:Chronic pain in left foot G89.29:Chronic pain in left foot AP, mortise, lateral, WB as trev; FINDINGS: 3 weightbearing images obtained. Redemonstration arthrodesis of the tibiotalar and subtalar joints with a retrograde intramedullary nail. There is partial osseous fusion across the tibiotalar joint. There is no osseous fusion of the posterior subtalar joint. There is persistent lucency around the intramedullary nail and around the fixation screw distally. Hardware does appear stable in position. Soft tissue swelling and vascular calcifications are redemonstrated. IMPRESSION IMPRESSION: Redemonstration hindfoot arthrodesis. There is stable lucencies surrounding the distal portion of the retrograde intramedullary nail and surrounding the calcaneal screw. [facility] Radiology Study observation (narrative) [facility] XR Ankle - left 3 ViewsOrder ed By: Erick Rogers on 06-20-2024 [facility] Work Phone: .eGFRon 04-24-2024 GFR/1.73 sq M.predicted MDRD (S/P/Bld) [Vol rate/Area] mL/min/{1.73_m2} Normal >=60 [facility] Comment on above: Result Comment: [facility] have implemented the eGFR calculation approach that does not have a coefficient for race and that conforms to the NKF-ASN Task Force Recommendations. Stages of Chronic Kidney Disease GFR Stage 3a Mild to moderate loss of kidney function 59 to 45 Stage 3b Moderate to severe loss of kidney function 44 to 33 Stage 4 Severe loss of kidney function 29 to 15 Stage 5 Kidney failure Less than 15 GFR calculated using the CKD-Epi Creatinine Equation (2020): eGFR = 142 X min(SCr/?, 1)? X max(SCr /?, 1)-1.200 X 0.9938Age X 1.012 [if female] Abbreviations/Units: eGFR (estimated glomerular filtration rate) = mL/min/1.73 m2 SCr (standardized serum creatinine) = mg/dL ? = 0.7 (females) or 0.9 (males) ? = -0.241 (females) or -0.302 (males) min = indicates the minimum of SCr/? or 1 max = indicates the maximum of SCr/? or 1 Age = years Performed By: #### E GFR #### [address] [address] Basic Metabolic Profileon Anion gap [Moles/Vol] 9 mmol/L Normal 4-12 [facility] Comment on above: Performed By: #### C [id number] #### [address] [address] Calcium [Mass/Vol] 8.1 mg/dL Low 8.5-10.3 [facility] Comment on above: Performed By: #### C [id number] #### [address] [address] Chloride [Moles/Vol] 95 mmol/L Low 98-110 [facility] Comment on above: Performed By: #### C [id number] #### [address] [address] CO2 [Moles/Vol] 23 mmol/L Normal 22-32 [facility] Comment on above: Performed By: #### C [id number] #### [address] [address] Creatinine [Mass/Vol] 1.03 mg/dL Normal 0.61-1.24 [facility] Comment on above: Performed By: #### C [id number] #### [address] [address] Glucose [Mass/Vol] 91 mg/dL Normal 70-99 [facility] Comment on above: Performed By: #### C [id number] #### [address] [address] Potassium [Moles/Vol] 3.5 mmol/L Normal 3.4-4.8 [facility] Comment on above: Performed By: #### C [id number] #### [address] [address] Sodium [Moles/Vol] 127 mmol/L Low 133-142 [facility] Comment on above: Performed By: #### C [id number] #### [address] [address] Urea nitrogen [Mass/Vol] 17 mg/dL Normal 8-26 [facility] Comment on above: Performed By: #### C [id number] #### [address] [address] Urea nitrogen/Creatinine [Mass ratio] 16.5 mg/mg Normal 10.0-20.0 [facility] Comment on above: Performed By: #### C [id number] #### [address] [address] CBCon 04-24-2024 Erythrocyte distribution width (RBC) [Ratio] 13.4 % Normal 11.6-14.8 [facility] Comment on above: Performed By: #### C BCI #### [address] [address] Hematocrit (Bld) [Volume fraction] 46.2 % Normal 41.0-53.0 [facility] Comment on above: Performed By: #### C BCI #### [address] [address] Hemoglobin (Bld) [Mass/Vol] 15.4 g/dL Normal 13.5-17.5 [facility] Comment on above: Performed By: #### C BCI #### [address] [address] MCH (RBC) [Entitic mass] 30.4 pg Normal 27.0-35.0 [facility] Comment on above: Performed By: #### C BCI #### [address] [address] MCHC 33.5 % Normal 31.0-37.0 [facility] Comment on above: Performed By: #### C BCI #### [address] [address] MCV (RBC) [Entitic vol] 90.9 fL Normal 80.0-100.0 [facility] Comment on above: Performed By: #### C BCI #### [place] [id number] Platelet 189 x10*3/mcL Normal 150-450 [facility] Comment on above: Performed By: #### C BCI #### [place] [id number] Platelet mean volume (Bld) [Entitic vol] 9.6 fL Normal 6.7-10.6 [facility] Comment on above: Performed By: #### C BCI #### [place] [id number] RBC 5.08 x10*6/mcL Normal 4.30-5.80 [facility] Comment on above: Performed By: #### C BCI #### [place] [id number] WBC 8.5 x10*3/mcL Normal 4.5-11.0 [facility] Comment on above: Performed By: #### C BCI #### [address] [address] Inpatient Clinical Summary 04-24-2024 Inpatient Clinical Summary [address] [address] [place] [address] Clinical Summary Person Information Name: Preston Carrasquillo Age: 68 Years : 1955 Sex: Male PCP: Sandee HANSON, Alex Barnard Marital Status: Phone: PCP: Race: White Ethnicity: Not or Language: [place] Visit Id: Visit Reason: L4 Compression Fracture, Fall Speciality: Acuity: Enc Type: Observation Med Service: Medicine-General Arrival: 04/23/2024 03:10:40 Discharge: Dispo Type: Address: [address] [place] [phone] Diagnosis: 1:Fall down stairs; Back pain; Pain; S/P kyphoplasty Discharged To: Home Treatments: Devices/Equipment: Professional Skilled Services: Special Services and Community Resources: Mode of Discharge Transportation: Discharge Orders Activity Restrictions No Restrictions Diet Instruction Regular home diet Follow up 04/24/24 12:44:00 EDT, 1 week, Follow-up with your primary care physician in 1 week Allergies No Known Medication Allergies Functional Status: Sensory Deficits: History of Falls: Mobility Assistance Prior to Admission: ADLs: Minimal assistance Gait: Steady Ambulation Assist: Assistive Device: Special Orthopedic Devices: Current Level of Assistance for Self-Care/Mobility: Cognitive Status: Orientation: Orientation Assessment Oriented x 4 Level of Consciousness: Alert Characteristics of Speech: Clear Aspiration Risk: None Affect/Behavior: Appropriate, Calm, Cooperative Laboratory or Other Results This Visit (last charted value for your 04/23/2024 visit) Hematology 04/24/2024 7:31 AM WBC: 8.5 x10 RBC: 5.08 x10 MCV: 90.9 fL -- Normal range between ( 80.0 and 100.0 ) MCHC: 33.5 % -- Normal range between ( 31.0 and 37.0 ) Hct: 46.2 % -- Normal range between ( 41.0 and 53.0 ) MCH: 30.4 pg -- Normal range between ( 27.0 and 35.0 ) Hgb: 15.4 g/dL -- Normal range between ( 13.5 and 17.5 ) Mean Platelet Volume: 9.6 fL -- Normal range between ( 6.7 and 10.6 ) Platelet: 189 x10 RDW: 13.4 % -- Normal range between ( 11.6 and 14.8 ) 04/23/2024 3:57 AM Neutro Auto: 79.2 % -- Normal range between ( 47.2 and 70.8 ) Lymph Auto: 11.0 % -- Normal range between ( 27.2 and 40.8 ) [place] Auto: 9.2 % -- Normal range between ( 4.7 and 13.9 ) Eos Auto: 0.4 % -- Normal range between ( 0.0 and 6.1 ) Basophil Auto: 0.2 % -- Normal range between ( 0.0 and 1.2 ) Baso Absolute: 0.0 x10 Lymph Absolute: 0.9 x10 [place] Absolute: 0.8 x10 Neutro Absolute: 6.6 x10 Eos Absolute: 0.0 x10 Urinalysis 04/23/2024 3:40 AM UA Color: Yellow UA Urobilinogen: Normal mg/dL UA Bili: Negative UA Ketones: Negative mg/dL UA Leukocyte Esterase: 25 UA Nitrite: 1+ UA Glucose: Normal mg/dL UA Protein: 10 mg/dL UA Blood: Negative UA Spec Grav: 1.024 -- Normal range between ( 1.003 and 1.035 ) UA Sperm: Present /HPF UA pH: 6.0 UA Clarity: Clear UA Source: Clean Catch UA Mucus: Present /LPF UA WBC Quant: 4 /HPF -- Normal range between ( 0 and 5 ) UA RBC Quant: 1 /HPF -- Normal range between ( 0 and 5 ) Chemistry 04/24/2024 7:31 AM Creatinine Lvl: 1.03 mg/dL -- Normal range between ( 0.61 and 1.24 ) BUN: 17 mg/dL -- Normal range between ( 8 and 26 ) Glucose Lvl: 91 mg/dL -- Normal range between ( 70 and 99 ) Potassium Lvl: 3.5 mmol/L -- Normal range between ( 3.4 and 4.8 ) Sodium Lvl: 127 mmol/L -- Normal range between ( 133 and 142 ) Calcium Lvl: 8.1 mg/dL -- Normal range between ( 8.5 and 10.3 ) Magnesium Lvl: 2.1 mg/dL -- Normal range between ( 1.7 and 2.4 ) Chloride: 95 mmol/L -- Normal range between ( 98 and 110 ) CO2: 23 mmol/L -- Normal range between ( 22 and 32 ) Anion Gap: 9 -- Normal range between ( 4 and 12 ) Estimated GFR: >60 mL/min/1.73m? BUN Crea Ratio: 16.5 -- Normal range between ( 10.0 and 20.0 ) 04/23/2024 3:57 AM AST: 32 IU/L -- Normal range between ( 15 and 41 ) ALT: 23 IU/L -- Normal range between ( 17 and 63 ) Albumin Lvl: 3.6 g/dL -- Normal range between ( 3.2 and 4.9 ) Total Protein: 7.5 g/dL -- Normal range between ( 6.5 and 8.1 ) Bili Total: 1.4 mg/dL -- Normal range between ( 0.3 and 1.2 ) Alk Phos: 91 IU/L -- Normal range between ( 32 and 91 ) AG Ratio: 0.9 -- Normal range between ( 1.1 and 2.2 ) Interventional Radiology 04/23/2024 2:20 PM IR Vertebral Augmentation: IR Vertebral Augmentation Measurements: Height: Weight: Blood Pressure: 150 mmHg / BMI: Respiratory: Respirations: Unlabored Respiratory Symptoms: None Cardiovascular: Heart Sounds: Heart Rhythm: Regular Gastrointestinal: GI Symptoms: Bowel Sounds: Present Vital Signs: Temp Axillary: Temp Temporal Artery: Temp Oral: 36.5 degC Temp Rectal: Apical Heart Rate: Peripheral Pulse Rate: 98 bpm Heart Rate: Respiratory Rate: 18 br/min Diet Diet: Feeding (more content not included)... Normal [facility] Magnesiumon 04-24-2024 Magnesium [Mass/Vol] 2.1 mg/dL Normal 1.7-2.4 [facility] Comment on above: Performed By: #### M G #### [place] [address] .UA Microscp Aon 04-23-2024 UA Mucus Present Normal Absent [facility] Comment on above: Performed By: #### M G #### [place] [id number] UA RBC Quant 1 /HPF Normal 0-5 [facility] Comment on above: Performed By: #### M G #### [place] [id number] UA Sperm Present Abnormal Absent [facility] Comment on above: Performed By: #### M G #### [place] [id number] UA WBC Quant 4 /HPF Normal 0-5 [facility] Comment on above: Performed By: #### M G #### [address] [address] .eGFRon 04-23-2024 GFR/1.73 sq M.predicted MDRD (S/P/Bld) [Vol rate/Area] mL/min/{1.73_m2} Normal >=60 [facility] Comment on above: Result Comment: [facility] have implemented the eGFR calculation approach that does not have a coefficient for race and that conforms to the NKF-ASN Task Force Recommendations. Stages of Chronic Kidney Disease GFR Stage 3a Mild to moderate loss of kidney function 59 to 45 Stage 3b Moderate to severe loss of kidney function 44 to 33 Stage 4 Severe loss of kidney function 29 to 15 Stage 5 Kidney failure Less than 15 GFR calculated using the CKD-Epi Creatinine Equation (2020): eGFR = 142 X min(SCr/?, 1)? X max(SCr /?, 1)-1.200 X 0.9938Age X 1.012 [if female] Abbreviations/Units: eGFR (estimated glomerular filtration rate) = mL/min/1.73 m2 SCr (standardized serum creatinine) = mg/dL ? = 0.7 (females) or 0.9 (males) ? = -0.241 (females) or -0.302 (males) min = indicates the minimum of SCr/? or 1 max = indicates the maximum of SCr/? or 1 Age = years Performed By: #### M G #### [address] [address] CBC w/ Diffon 04-23-2024 Erythrocyte distribution width (RBC) [Ratio] 13.1 % Normal 11.6-14.8 [facility] Comment on above: Performed By: #### C BC #### [address] [address] Hematocrit (Bld) [Volume fraction] 43.7 % Normal 41.0-53.0 [facility] Comment on above: Performed By: #### C BC #### [address] [address] Hemoglobin (Bld) [Mass/Vol] 14.5 g/dL Normal 13.5-17.5 [facility] Comment on above: Performed By: #### C BC #### [address] [address] MCH (RBC) [Entitic mass] 30.3 pg Normal 27.0-35.0 [facility] Comment on above: Performed By: #### C BC #### [address] [address] MCHC 33.3 % Normal 31.0-37.0 [facility] Comment on above: Performed By: #### C BC #### [address] [address] MCV (RBC) [Entitic vol] 91.1 fL Normal 80.0-100.0 [facility] Comment on above: Performed By: #### C BC #### [address] [address] Platelet 192 x10*3/mcL Normal 150-450 [facility] Comment on above: Performed By: #### C BC #### [address] [address] Platelet mean volume (Bld) [Entitic vol] 8.7 fL Normal 6.7-10.6 [facility] Comment on above: Performed By: #### C BC #### [address] [address] RBC 4.80 x10*6/mcL Normal 4.30-5.80 [facility] Comment on above: Performed By: #### C BC #### [address] [address] WBC 8.4 x10*3/mcL Normal 4.5-11.0 [facility] Comment on above: Performed By: #### C BC #### [address] [address] CMPon 04-23-2024 Albumin [Mass/Vol] 3.6 g/dL Normal 3.2-4.9 [facility] Comment on above: Performed By: #### C OMP #### [address] [place] [address] Albumin/Globulin [Mass ratio] 0.9 {ratio} Low 1.1-2.2 [facility] Comment on above: Performed By: #### C OMP #### [address] [address] Alk Phos 91 IU/L Normal 32-91 [facility] Comment on above: Performed By: #### C OMP #### [address] [address] ALT [Catalytic activity/Vol] 23 U/L Normal 17-63 [facility] Comment on above: Performed By: #### C OMP #### [address] [address] Anion gap [Moles/Vol] 6 mmol/L Normal 4-12 [facility] Comment on above: Performed By: #### C OMP #### [address] [address] AST [Catalytic activity/Vol] 32 U/L Normal 15-41 [facility] Comment on above: Performed By: #### C OMP #### [address] [address] Bili Total 1.4 mg/dL High 0.3-1.2 [facility] Comment on above: Performed By: #### C OMP #### [address] [address] Calcium [Mass/Vol] 8.1 mg/dL Low 8.5-10.3 [facility] Comment on above: Performed By: #### C OMP #### [address] [address] Chloride [Moles/Vol] 99 mmol/L Normal 98-110 [facility] Comment on above: Performed By: #### C OMP #### [address] [address] CO2 [Moles/Vol] 26 mmol/L Normal 22-32 [facility] Comment on above: Performed By: #### C OMP #### [address] [address] Creatinine [Mass/Vol] 0.98 mg/dL Normal 0.61-1.24 [facility] Comment on above: Performed By: #### C OMP #### [address] [address] Glucose [Mass/Vol] 101 mg/dL High 70-99 [facility] Comment on above: Performed By: #### C OMP #### [address] [address] Potassium [Moles/Vol] 3.8 mmol/L Normal 3.4-4.8 [facility] Comment on above: Performed By: #### C OMP #### [address] [address] Protein [Mass/Vol] 7.5 g/dL Normal 6.5-8.1 [facility] Comment on above: Performed By: #### C OMP #### [address] [address] Sodium [Moles/Vol] 131 mmol/L Low 133-142 [facility] Comment on above: Performed By: #### C OMP #### [address] [address] Urea nitrogen [Mass/Vol] 18 mg/dL Normal 8-26 [facility] Comment on above: Performed By: #### C OMP #### [address] [address] Urea nitrogen/Creatinine [Mass ratio] 18.4 mg/mg Normal 10.0-20.0 [facility] Comment on above: Performed By: #### C OMP #### [address] [address] Diff Autoon 04-23-2024 Baso Absolute 0.0 x10*3/mcL Normal 0.0-0.2 [facility] Comment on above: Performed By: #### M G #### [address] [address] Basophils/100 WBC (Bld) 0.2 % Normal 0.0-1.2 [facility] Comment on above: Performed By: #### M G #### [address] [address] Eos Absolute 0.0 x10*3/mcL Normal 0.0-0.4 [facility] Comment on above: Performed By: #### M G #### [address] [address] Eosinophils/100 WBC (Bld) 0.4 % Normal 0.0-6.1 [facility] Comment on above: Performed By: #### M G #### [address] [address] Lymph Absolute 0.9 x10*3/mcL Low 1.0-4.8 [facility] Comment on above: Performed By: #### M G #### [address] [address] Lymphocytes/100 WBC (Bld) 11.0 % Low 27.2-40.8 [facility] Comment on above: Performed By: #### M G #### [address] [address] [place] Absolute 0.8 x10*3/mcL Normal 0.3-1.1 [facility] Comment on above: Performed By: #### M G #### [address] [address] Monocytes/100 WBC (Bld) 9.2 % Normal 4.7-13.9 [facility] Comment on above: Performed By: #### M G #### [address] [address] Neutro Absolute 6.6 x10*3/mcL Normal 1.8-7.7 [facility] Comment on above: Performed By: #### M G #### [address] [address] Neutro Auto 79.2 % High 47.2-70.8 [facility] Comment on above: Performed By: #### M G #### [address] [address] Magnesiumon 04-23-2024 Magnesium [Mass/Vol] 2.3 mg/dL Normal 1.7-2.4 [facility] Comment on above: Performed By: #### M G #### [address] [address] Rehab Services Progress Note on 04-23-2024 Rehab Services Progress Note Pt scheduled for kyphoplasty later this date. Hold therapy evals until tomorrow 04/24 as appropriate. Electronically signed by Dorys Peres 04/23/24 10:08 EDT Normal [facility] UA w Culture if Indon 2023 Color (U) Yellow Normal Yellow [facility] Comment on above: Performed By: #### M G #### [address] [address] Ketones Ql (U) Negative Normal Negative [facility] Comment on above: Performed By: #### M G #### [address] [address] UA Blood Negative Normal Negative [facility] Comment on above: Performed By: #### M G #### [address] [address] UA Clarity Clear Normal Clear [facility] Comment on above: Performed By: #### M G #### [address] [address] UA Glucose Normal Normal Negative [facility] Comment on above: Performed By: #### M G #### [address] [address] UA Leukocyte Esterase 25 Abnormal Negative [facility] Comment on above: Performed By: #### M G #### [address] [address] UA Nitrite 1+ Abnormal Negative [facility] Comment on above: Performed By: #### M G #### [address] [address] UA pH 6.0 Normal 4.5 - 7.8 [facility] Comment on above: Performed By: #### M G #### [address] [address] UA Protein 10 mg/dL Normal Negative [facility] Comment on above: Performed By: #### M G #### [address] [address] UA Source Clean Catch Normal [facility] Comment on above: Performed By: #### M G #### [address] [address] UA Spec Grav 1.024 Normal 1.003-1.035 [facility] Comment on above: Performed By: #### M G #### [address] [address] UA Urobilinogen Normal Normal 0.2 - 1.0 [facility] Comment on above: Performed By: #### M G #### [address] [address] Urobilinogen (U) [Mass/Vol] Negative Normal Negative [facility] Comment on above: Performed By: #### M G #### [address] [address] Basic Metabolic Profon 04-22 Anion gap [Moles/Vol] 10 mmol/L Normal 9-17 [facility] Comment on above: Performed By: #### C ABDELRAHMAN, BMP #### [facility] [address] [place] [address] Occupational Therapy Professor: Jerson Davis MD BUN/CRE Ratio 23 High 9-20 [facility] Comment on above: Performed By: #### C DP, BMP #### [facility] [address] [place] [address] Occupational Therapy Professor: Jerson Davis MD Calcium [Mass/Vol] 8.4 mg/dL Low 8.6-10.4 [facility] Comment on above: Performed By: #### C DP, BMP #### [facility] [address] [place], [place] [id number] Occupational Therapy Professor: Jerson Davis MD Chloride [Moles/Vol] 97 mmol/L Low 98-107 [facility] Comment on above: Performed By: #### C DP, BMP #### [facility] [address] [place], [place] [phone] Occupational Therapy Professor: Jerson Davis MD CO2 [Moles/Vol] 25 mmol/L Normal 20-31 [facility] Comment on above: Performed By: #### C DP, BMP #### [facility] [address] [place], [place] [phone] Occupational Therapy Professor: Jerson Davis MD Creatinine [Mass/Vol] 0.7 mg/dL Normal 0.7-1.2 [facility] Comment on above: Performed By: #### C DP, BMP #### [facility] [address] [place] [address] Occupational Therapy Professor: Jerson Davis MD GFR/1.73 sq M.predicted among non-blacks MDRD (S/P/Bld) [Vol rate/Area] mL/min/{1.73_m2} Normal >60 [facility] Comment on above: Result Comment: These results are not intended for use in patients <18 years of age. eGFR results are calculated without a race factor using the 2020 CKD-EPI equation. Careful clinical correlation is recommended, particularly when comparing to results calculated using previous equations. The CKD-EPI equation is less accurate in patients with extremes of muscle mass, extra-renal metabolism of creatine, excessive creatine ingestion, or following therapy that affects renal tubular secretion. Performed By: #### C DP, BMP #### [facility] [address] [place], [place] [phone] Occupational Therapy Professor: Jerson Davis MD Glucose [Mass/Vol] 95 mg/dL Normal 70-99 [facility] Comment on above: Performed By: #### C DP, BMP #### [facility] [address] [place], [place] [phone] Occupational Therapy Professor: Jerson Davis MD Potassium [Moles/Vol] 4.1 mmol/L Normal 3.7-5.3 [facility] Comment on above: Performed By: #### C DP, BMP #### [address] [place], [place] [phone] Occupational Therapy Professor: Jerson Davis MD Sodium [Moles/Vol] 132 mmol/L Low 135-144 [facility] Comment on above: Performed By: #### C DP, BMP #### [address] [place], [place] [phone] Occupational Therapy Professor: Jerson Davis MD Urea nitrogen [Mass/Vol] 16 mg/dL Normal 8-23 [facility] Comment on above: Performed By: #### C DP, BMP #### [address] [place], [place] [phone] Occupational Therapy Professor: Jerson Davis MD CBC with Diffon 04-22-2024 Abs. Basophil 0.03 k/uL Normal 0.00-0.20 [facility] Comment on above: Performed By: #### C DP, BMP #### [facility] [address] [place], [place] [phone] Occupational Therapy Professor: Jerson Davis MD Abs.Imm.Granulocyte 0.13 k/uL Normal 0.00-0.30 [facility] Comment on above: Performed By: #### C DP, BMP #### [facility] [address] [place], [place] [phone] Occupational Therapy Professor: Jerson Davis MD Abs.Neutrophil (Seg) 6.93 k/uL Normal 1.50-8.10 [facility] Comment on above: Performed By: #### C DP, BMP #### [address] [place], [place] [address] Occupational Therapy Professor: Jerson Davis MD Basophils/100 WBC (Bld) 0 % Normal 0-2 [facility] Comment on above: Performed By: #### C DP, BMP #### [address] [place], [place] [address] Occupational Therapy Professor: Jerson Davis MD Eosinophils (Bld) [#/Vol] 0.03 10*3/uL Normal 0.00-0.4 4 [facility] Comment on above: Performed By: #### C DP, BMP #### [address] [place] [place] [address] Occupational Therapy Professor: Jerson Davis MD Eosinophils/100 WBC (Bld) 0 % Low 1-4 [facility] Comment on above: Performed By: #### C DP, BMP #### [address] [place] [phone] Occupational Therapy Professor: Jerson Davis MD Erythrocyte distribution width (RBC) [Ratio] 12.4 % Normal 11.8-14.4 [facility] Comment on above: Performed By: #### C DP, BMP #### [address] [place], [facility]83 Occupational Therapy Professor: Jerson Davis MD Hematocrit (Bld) [Volume fraction] 47.7 % Normal 40.7-50.3 [facility] Comment on above: Performed By: #### C DP, BMP #### [address] [place] [phone] Occupational Therapy Professor: Jerson Davis MD Hemoglobin (Bld) [Mass/Vol] 16.2 g/dL Normal 13.0-17.0 [facility] Comment on above: Performed By: #### C DP, BMP #### [facility] [address] [place] [address] Occupational Therapy Professor: Jerson Davis MD Immature granulocytes/100 WBC (Bld) 1 % High 0 [facility] Comment on above: Performed By: #### C DP, BMP #### [facility] [address] [place] [address] Occupational Therapy Professor: Jerson Davis MD Lymphocytes (Bld) [#/Vol] 1.12 10*3/uL Normal 1.10-3.7 0 [facility] Comment on above: Performed By: #### C DP, BMP #### [address] [place], [place] [phone] Occupational Therapy Professor: Jerson Davis MD Lymphocytes/100 WBC (Bld) 12 % Low 24-43 [facility] Comment on above: Performed By: #### C DP, BMP #### [address] [place], [place] [phone] Occupational Therapy Professor: Jerson Davis MD MCH (RBC) [Entitic mass] 30.0 pg Normal 25.2-33.5 [facility] Comment on above: Performed By: #### C DP, BMP #### [address] [place] [address] Occupational Therapy Professor: Jerson Davis MD MCHC (RBC) [Mass/Vol] 34.0 g/dL Normal 28.4-34.8 [facility] Comment on above: Performed By: #### C DP, BMP #### [address] [place] [address] Occupational Therapy Professor: Jerson Davis MD MCV (RBC) [Entitic vol] 88.3 fL Normal 82.6-102.9 [facility] Comment on above: Performed By: #### C DP, BMP #### [address] [place], [facility]83 Occupational Therapy Professor: Jerson Davis MD Monocytes (Bld) [#/Vol] 0.82 10*3/uL Normal 0.10-1.20 [facility] Comment on above: Performed By: #### C DP, BMP #### [facility] [address] [place], [place] [phone] Occupational Therapy Professor: Jerson Davis MD Monocytes/100 WBC (Bld) 9 % Normal 3-12 [facility] Comment on above: Performed By: #### C DP, BMP #### [facility] [address] [place], [place] [address] Occupational Therapy Professor: Jerson Davis MD Neutrophil (Seg) 78 % High 36-65 [facility] Comment on above: Performed By: #### C DP, BMP #### [facility] [address] [place] [address] Dr. [place], [facility]83 Occupational Therapy Professor: Jerson Davis MD NRBC Automated 0.0 per 100 WBC Normal 0.0 [facility] Comment on above: Performed By: #### C DP, BMP #### [address] [place], [facility]83 Occupational Therapy Professor: Jerson Davis MD Platelet mean volume (Bld) [Entitic vol] 10.8 fL Normal 8.1-13.5 [facility] Comment on above: Performed By: #### C DP, BMP #### [address] [place], [place] [phone] Occupational Therapy Professor: Jerson Davis MD Platelets (Bld) [#/Vol] 204 10*3/uL Normal 138-453 [facility] Comment on above: Performed By: #### C DP, BMP #### [facility] [address] [place], [place] [phone] Occupational Therapy Professor: Jerson Davis MD RBC (Bld) [#/Vol] 5.40 10*6/uL Normal 4.21-5.77 [facility] Comment on above: Performed By: #### C DP, BMP #### [facility] [address] [place] [address] Occupational Therapy Professor: Jerson Davis MD WBC (Bld) [#/Vol] 9.1 10*3/uL Normal 3.5-11.3 [facility] Comment on above: Performed By: #### C DP, BMP #### [facility] [address] [place], [place] [id number] Occupational Therapy Professor: Jerson Davis MD CT LUMBAR SPINE WO CONTRASTo n 04-22-2024 CT LUMBAR SPINE WO CONTRAST EXAMINATION: CT OF THE LUMBAR SPINE WITHOUT CONTRAST 04/22/2024 TECHNIQUE: CT of the lumbar spine was performed without the administration of intravenous contrast. Multiplanar reformatted images are provided for review. Adjustment of mA and/or kV according to patient size was utilized. Automated exposure control, iterative reconstruction, and/or weight based adjustment of the mA/kV was utilized to reduce the radiation dose to as low as reasonably achievable. COMPARISON: 07/01/2023 HISTORY: ORDERING SYSTEM PROVIDED HISTORY: Pain, lower extremity weakness, no bowel/bladder. Fall down [address]. TECHNOLOGIST PROVIDED HISTORY: Pain, lower extremity weakness, no bowel/bladder. Fall down [address] stairs. Decision Support Exception - unselect if not a suspected or confirmed emergency medical condition->Emergenc y Medical Condition (MA) FINDINGS: BONES/ALIGNMENT: There is normal alignment of the spine. Interval development of a compression fracture of L4 body with 60% loss of the normal height. Posterior wall appears intact. The remaining vertebral body heights are maintained. No osseous destructive lesion is seen. DEGENERATIVE CHANGES: Degenerative disc disease noted at L1-2, L2-3, L4-L5 and L5-S1 with loss of height and early sclerosis of the articulating endplates. The spinal canal appears to be patent. There are posterior marginal osteophytes with associated broad-based disc bulges at these levels with associated facet hypertrophy and ligamentous hypertrophy producing mild central canal and lateral recess spinal stenosis at L4-5. There is bilateral foraminal narrowing greater on the right.. SOFT TISSUES/RETROPERITO NEUM: The paraspinal soft tissue show no gross abnormalities. No paraspinal mass is seen. Vascular calcifications are seen compatible with atherosclerotic disease. IMPRESSION: 1. Interval development of a compression fracture of L4 body with 60% loss of the normal height. Posterior wall appears intact. 2. Multilevel lumbar spondylosis and degenerative disc disease as described above. RECOMMENDATIONS: Further evaluation may be obtained with MR imaging if clinically indicated. Interpreted by: Singh Ledbetter MD Signed by: Singh Ledbetter MD 04/22/24 Final result Normal [facility] Urinalysis, Routineon 2023 Bilirubin, SemiQt,Ur Negative Normal NEG [facility] Comment on above: Performed By: #### U A #### [address] [place] [address] Occupational Therapy Professor: Jerson Davis MD Blood, Urine Negative Normal NEG [facility] Comment on above: Performed By: #### U A #### [address] [place] [address] Occupational Therapy Professor: Jerson Davis MD Clarity (U) Clear Normal CLEAR [facility] Comment on above: Performed By: #### U A #### [address] [place] [address] Occupational Therapy Professor: Jerson Davis MD Color (U) Yellow Normal YEL [facility] Comment on above: Performed By: #### U A #### [facility] [address] [place] [address] Dr. [place], [facility]83 Occupational Therapy Professor: Jerson Davis MD Glucose Ql (U) Negative Normal NEG [facility] Comment on above: Performed By: #### U A #### [address] [place] [address] Occupational Therapy Professor: Jerson Davis MD Ketones Ql (U) Negative Normal NEG [facility] Comment on above: Performed By: #### U A #### [facility] [address] [place] [address] Dr[place], [place] [phone] Occupational Therapy Professor: Jerson Davis MD Leukocyte esterase Test strip Ql (U) Negative Normal NEG [facility] Comment on above: Performed By: #### U A #### [facility] [address] [place] [address] [place] [address] Occupational Therapy Professor: Jerson Davis MD Nitrite,Ur Negative Normal NEG [facility] Comment on above: Performed By: #### U A #### [facility] [address] [place] [address] [place] [address] Occupational Therapy Professor: Jerson Davis MD PH,Ur 6.0 Normal 5.0-9.0 [facility] Comment on above: Performed By: #### U A #### [facility] [address] [place] [address] Dr[place], [place] [phone] Occupational Therapy Professor: Jerson Davis MD Protein Ql (U) Negative Normal NEG [facility] Comment on above: Performed By: #### U A #### [facility] [address] [place] [address] [place] [address] Occupational Therapy Professor: Jerson Davis MD Spec. [place],Ur 1.015 Normal 1.010-1.020 [facility] Comment on above: Performed By: #### U A #### [facility] [address] [place] [address] Dr[place], [place] [phone] Occupational Therapy Professor: Jerson Davis MD Urobilinogen,Ur Normal Normal 0.0-1.0 [facility] Comment on above: Performed By: #### U A #### [facility] [address] [place] [address] [place] [address] Occupational Therapy Professor: Jerson Davis MD No Panel Informationon 01-17 EXAM: XR ANKLE LEFT 3+ VIEWS, XR FOOT LEFT 3+ VIEWS, 01/18/2024 11:45 AM (accession [id number]), 01/18/2024 11:46 AM (accession [id number]) COMPARISON: Left ankle radiographs September 14, 2023. Left foot radiographs February 13, 2023. CLINICAL INDICATIONS: left ankle pain RELEVANT CLINICAL HISTORY: Z98.1:S/P ankle arthrodesis (accession [id number]), M79.672:Chronic pain in left foot G89.29:Chronic pain in left foot (accession [id number]) FINDINGS: 4 weight-bearing images obtained of the left ankle. Effusion: There is a joint effusion present. Soft Tissue: Diffuse soft tissue swelling. Bone: The distal tibia and fibula appear intact. The syndesmosis is anatomically aligned. Talar dome is intact. Chronic posttraumatic hypertrophic osseous changes of the medial and lateral malleoli redemonstrated. Calcaneal inclination angle 19 degrees. Joint: Redemonstration arthrodesis of the tibiotalar and subtalar joints with an intramedullary nail. There does appear to be partial osseous fusion across the tibiotalar joint. There is no apparent osseous fusion across the subtalar joint. There is new lucency around the intramedullary nail with increased lucency around the fixation screw distally. Hardware does appear stable in position. 3 weight-bearing images obtained of the left foot. Soft Tissue: There is no significant soft tissue swelling. Bone: Mineralization is decreased. No acute fracture. No focal periosteal reaction. Joint: No evidence of dislocation. The tarsal-metatarsal joints appear grossly intact. Osteoarthritic changes in the first MTP joint and interphalangeal joints manifested by joint space narrowing and marginal osteophytes. RADIOLOGY Kalin Elizabeth MD - 01/18/2024 EXAM: XR ANKLE LEFT 3+ VIEWS, XR FOOT LEFT 3+ VIEWS, 01/18/2024 11:45 AM (accession [id number]), 01/18/2024 11:46 AM (accession [id number]) COMPARISON: Left ankle radiographs September 14, 2023. Left foot radiographs February 13, 2023. CLINICAL INDICATIONS: left ankle pain RELEVANT CLINICAL HISTORY: Z98.1:S/P ankle arthrodesis (accession [id number]), M79.672:Chronic pain in left foot G89.29:Chronic pain in left foot (accession [id number]) FINDINGS: 4 weight-bearing images obtained of the left ankle. Effusion: There is a joint effusion present. Soft Tissue: Diffuse soft tissue swelling. Bone: The distal tibia and fibula appear intact. The syndesmosis is anatomically aligned. Talar dome is intact. Chronic posttraumatic hypertrophic osseous changes of the medial and lateral malleoli redemonstrated. Calcaneal inclination angle 19 degrees. Joint: Redemonstration arthrodesis of the tibiotalar and subtalar joints with an intramedullary nail. There does appear to be partial osseous fusion across the tibiotalar joint. There is no apparent osseous fusion across the subtalar joint. There is new lucency around the intramedullary nail with increased lucency around the fixation screw distally. Hardware does appear stable in position. 3 weight-bearing images obtained of the left foot. Soft Tissue: There is no significant soft tissue swelling. Bone: Mineralization is decreased. No acute fracture. No focal periosteal reaction. Joint: No evidence of dislocation. The tarsal-metatarsal joints appear grossly intact. Osteoarthritic changes in the first MTP joint and interphalangeal joints manifested by joint space narrowing and marginal osteophytes. IMPRESSION IMPRESSION: Redemonstration hindfoot arthrodesis with progressive lucency around the hardware suggestive of hardware loosening. No acute osseous abnormality. [facility] No Panel InformationOrdered By: Kalin Elizabeth on 01-18-2024 [facility] Work Phone: XR ANKLE LEFT 3+ VIEWSon XR ANKLE LEFT 3+ VIEWS EXAM: XR ANKLE LE FT 3+ VIEWS, XR FOOT LEFT 3+ VIEWS, 01/18/2024 11:45 AM (accession [id number]), 01/18/2024 11:46 AM (accession [id number]) COMPARISON: Left ankle radiographs September 14, 2023. Left foot radiographs February 13, 2023. CLINICAL INDICATIONS: left ankle pain RELEVANT CLINICAL HISTORY: Z98.1:S/P ankle arthrodesis (accession [id number]), M79.672:Chronic pain in left foot G89.29:Chronic pain in left foot (accession [id number]) FINDINGS: 4 weight-bearing images obtained of the left ankle. Effusion: There is a joint effusion present. Soft Tissue: Diffuse soft tissue swelling. Bone: The distal tibia and fibula appear intact. The syndesmosis is anatomically aligned. Talar dome is intact. Chronic posttraumatic hypertrophic osseous changes of the medial and lateral malleoli redemonstrated. Calcaneal inclination angle 19 degrees. Joint: Redemonstration arthrodesis of the tibiotalar and subtalar joints with an intramedullary nail. There does appear to be partial osseous fusion across the tibiotalar joint. There is no apparent osseous fusion across the subtalar joint. There is new lucency around the intramedullary nail with increased lucency around the fixation screw distally. Hardware does appear stable in position. 3 weight-bearing images obtained of the left foot. Soft Tissue: There is no significant soft tissue swelling. Bone: Mineralization is decreased. No acute fracture. No focal periosteal reaction. Joint: No evidence of dislocation. The tarsal-metatarsal joints appear grossly intact. Osteoarthritic changes in the first MTP joint and interphalangeal joints manifested by joint space narrowing and marginal osteophytes. IMPRESSION: Redemonstration hindfoot arthrodesis with progressive lucency around the hardware suggestive of hardware loosening. No acute osseous abnormality. Normal [facility] XR Ankle - left 3 [facility] Study observation (narrative) [facility] XR FOOT LEFT 3+ VIEWSon XR FOOT LEFT 3+ VIEWS EXAM: XR ANKLE LEF T 3+ VIEWS, XR FOOT LEFT 3+ VIEWS, 01/18/2024 11:45 AM (accession [id number]), 01/18/2024 11:46 AM (accession [id number]) COMPARISON: Left ankle radiographs September 14, 2023. Left foot radiographs February 13, 2023. CLINICAL INDICATIONS: left ankle pain RELEVANT CLINICAL HISTORY: Z98.1:S/P ankle arthrodesis (accession [id number]), M79.672:Chronic pain in left foot G89.29:Chronic pain in left foot (accession [id number]) FINDINGS: 4 weight-bearing images obtained of the left ankle. Effusion: There is a joint effusion present. Soft Tissue: Diffuse soft tissue swelling. Bone: The distal tibia and fibula appear intact. The syndesmosis is anatomically aligned. Talar dome is intact. Chronic posttraumatic hypertrophic osseous changes of the medial and lateral malleoli redemonstrated. Calcaneal inclination angle 19 degrees. Joint: Redemonstration arthrodesis of the tibiotalar and subtalar joints with an intramedullary nail. There does appear to be partial osseous fusion across the tibiotalar joint. There is no apparent osseous fusion across the subtalar joint. There is new lucency around the intramedullary nail with increased lucency around the fixation screw distally. Hardware does appear stable in position. 3 weight-bearing images obtained of the left foot. Soft Tissue: There is no significant soft tissue swelling. Bone: Mineralization is decreased. No acute fracture. No focal periosteal reaction. Joint: No evidence of dislocation. The tarsal-metatarsal joints appear grossly intact. Osteoarthritic changes in the first MTP joint and interphalangeal joints manifested by joint space narrowing and marginal osteophytes. IMPRESSION: Redemonstration hindfoot arthrodesis with progressive lucency around the hardware suggestive of hardware loosening. No acute osseous abnormality. Normal [facility] XR Foot - left 3 [facility] Radiology Study observation (narrative) [facility] FLUORO FOR SURGICAL PROCEDUR ESon 09-29-2023 FLUORO FOR SURGICAL PROCEDURES Radiology exam is complete. No Radiologist dictation. Please follow up with ordering provider. Final result Normal [facility] XR ANKLE LEFT 3+ VIEWSon XR ANKLE LEFT 3+ VIEWS EXAM: XR ANKLE LE FT 3+ VIEWS, 09/14/2023 13:18 PM COMPARISON: June 15, 2023. CLINICAL INDICATIONS: pain RELEVANT CLINICAL HISTORY: M25.572:Left ankle pain, unspecified chronicity 3 views WB as trev; FINDINGS: 3 nonweight-bearing images obtained. Bony mineralization is diminished. There is redemonstration of a tibiotalar and subtalar joint arthrodesis. There is slight progressive fusion at the tibiotalar joint. The subtalar joint is unchanged. A subtle lucency surrounds the calcaneal fixation screw which could suggest loosening. In addition there is a lucency within the intramedullary nail within the calcaneus. Remote trauma is noted in the medial and lateral malleolus. The calcaneal inclination angle is 16 degrees IMPRESSION: Osteopenia Status post tibiotalar and subtalar joint arthrodesis with slight progressive fusion at the tibiotalar joint Subtle lucencies surrounding the intramedullary nail within the calcaneus and threaded screw which could suggest loosening Normal [facility] XR Ankle - left 3 Viewson IMPRESSION: Osteopenia Status post tibiotalar and subtalar joint arthrodesis with slight progressive fusion at the tibiotalar joint Subtle lucencies surrounding the intramedullary nail within the calcaneus and threaded screw which could suggest loosening OLOGY EXAM: XR ANKLE LEFT 3+ VIEWS, 09/14/2023 13:18 PM COMPARISON: June 15, 2023. CLINICAL INDICATIONS: pain RELEVANT CLINICAL HISTORY: M25.572:Left ankle pain, unspecified chronicity 3 views WB as trev; FINDINGS: 3 nonweight-bearing images obtained. Bony mineralization is diminished. There is redemonstration of a tibiotalar and subtalar joint arthrodesis. There is slight progressive fusion at the tibiotalar joint. The subtalar joint is unchanged. A subtle lucency surrounds the calcaneal fixation screw which could suggest loosening. In addition there is a lucency within the intramedullary nail within the calcaneus. Remote trauma is noted in the medial and lateral malleolus. The calcaneal inclination angle is 16 degrees RADIOLOGY Toya Martinez DO - 09/14/2023 EXAM: XR ANKLE LEFT 3+ VIEWS, 09/14/2023 13:18 PM COMPARISON: June 15, 2023. CLINICAL INDICATIONS: pain RELEVANT CLINICAL HISTORY: M25.572:Left ankle pain, unspecified chronicity 3 views WB as trev; FINDINGS: 3 nonweight-bearing images obtained. Bony mineralization is diminished. There is redemonstration of a tibiotalar and subtalar joint arthrodesis. There is slight progressive fusion at the tibiotalar joint. The subtalar joint is unchanged. A subtle lucency surrounds the calcaneal fixation screw which could suggest loosening. In addition there is a lucency within the intramedullary nail within the calcaneus. Remote trauma is noted in the medial and lateral malleolus. The calcaneal inclination angle is 16 degrees IMPRESSION IMPRESSION: Osteopenia Status post tibiotalar and subtalar joint arthrodesis with slight progressive fusion at the tibiotalar joint Subtle lucencies surrounding the intramedullary nail within the calcaneus and threaded screw which could suggest loosening [facility] Radiology Study observation (narrative) [facility] XR Ankle - left 3 ViewsOrder ed By: Toya Martinez on 09-14-2023 [facility] Work Phone: CT CSpine W/O Contraston Radiology Study observation (narrative) [facility] CT Head W/O Contraston 07-01 Radiology Study observation (narrative) [facility] CT LUMBAR SPINE WO CONTRASTo n 07-01-2023 Radiology Study observation (narrative) [facility] CT THORACIC SPINE WO CONTRAS Ton 07-01-2023 Radiology Study observation (narrative) [facility] No Panel Informationon 07-01 1. No acute intracranial abnormality. 2. No acute traumatic abnormality involving the cervical, thoracic or lumbar spine. PN RIS CONSOLIDATED EXAMINATION: CT OF THE HEAD WITHOUT CONTRAST; CT OF THE CERVICAL SPINE WITHOUT CONTRAST; CT OF THE THORACIC SPINE WITHOUT CONTRAST; CT OF THE LUMBAR SPINE WITHOUT CONTRAST 07/01/2023 10:58 am TECHNIQUE: CT of the head was performed without the administration of intravenous contrast. Automated exposure control, iterative reconstruction, and/or weight based adjustment of the mA/kV was utilized to reduce the radiation dose to as low as reasonably achievable.; CT of the cervical spine was performed without the administration of intravenous contrast. Multiplanar reformatted images are provided for review. Automated exposure control, iterative reconstruction, and/or weight based adjustment of the mA/kV was utilized to reduce the radiation dose to as low as reasonably achievable.; CT of the thoracic spine was performed without the administration of intravenous contrast. Multiplanar reformatted images are provided for review. Automated exposure control, iterative reconstruction, and/or weight based adjustment of the mA/kV was utilized to reduce the radiation dose to as low as reasonably achievable.; CT of the lumbar spine was performed without the administration of intravenous contrast. Multiplanar reformatted images are provided for review. Adjustment of mA and/or kV according to patient size was utilized. Automated exposure control, iterative reconstruction, and/or weight based adjustment of the mA/kV was utilized to reduce the radiation dose to as low as reasonably achievable. COMPARISON: None. HISTORY: ORDERING SYSTEM PROVIDED HISTORY: fall TECHNOLOGIST PROVIDED HISTORY: fall Decision Support Exception - unselect if not a suspected or confirmed emergency medical condition->Emergenc y Medical Condition (MA) FINDINGS: CT SCAN HEAD: BRAIN/VENTRICLES: There is no acute intracranial hemorrhage, mass effect or midline shift. No abnormal extra-axial fluid collection. The layne-white differentiation is maintained without evidence of an acute infarct. There is no evidence of hydrocephalus. ORBITS: The visualized portion of the orbits demonstrate no acute abnormality. SINUSES: The visualized paranasal sinuses and mastoid air cells demonstrate no acute abnormality. SOFT TISSUES/SKULL: No acute abnormality involving the visualized skull or soft tissues. CT SCAN CERVICAL SPINE: BONES/ALIGNMENT: The alignment of the cervical spine is within normal limits. No acute fractures or dislocations are seen. DEGENERATIVE CHANGES: There is multilevel degenerative disc disease of the cervical spine. SOFT TISSUES: There is no prevertebral soft tissue swelling. CT SCAN THORACIC SPINE: BONES/ALIGNMENT: The alignment of the thoracic spine is within normal limits. No acute fractures or dislocations are seen. There is a Schmorl's node involving the superior endplate of T6. There is a thoracic spinal stimulator. DEGENERATIVE CHANGES: There is mild degenerative disc disease of the thoracic spine. SOFT TISSUES: There is no prevertebral soft tissue swelling. CT SCAN LUMBAR SPINE: BONES/ALIGNMENT: The alignment of the lumbar spine is within normal limits. No acute fractures or dislocations are seen. DEGENERATIVE CHANGES: There is degenerative disease of the lumbar spine most pronounced at L1-2 and L4-5. SOFT TISSUES: There is no prevertebral soft tissue swelling. [facility] RIS CONSOLIDATED Franck Jauregui MD - 07/01/2023 EXAMINATION: CT OF THE HEAD WITHOUT CONTRAST; CT OF THE CERVICAL SPINE WITHOUT CONTRAST; CT OF THE THORACIC SPINE WITHOUT CONTRAST; CT OF THE LUMBAR SPINE WITHOUT CONTRAST 07/01/2023 10:58 am TECHNIQUE: CT of the head was performed without the administration of intravenous contrast. Automated exposure control, iterative reconstruction, and/or weight based adjustment of the mA/kV was utilized to reduce the radiation dose to as low as reasonably achievable.; CT of the cervical spine was performed without the administration of intravenous contrast. Multiplanar reformatted images are provided for review. Automated exposure control, iterative reconstruction, and/or weight based adjustment of the mA/kV was utilized to reduce the radiation dose to as low as reasonably achievable.; CT of the thoracic spine was performed without the administration of intravenous contrast. Multiplanar reformatted images are provided for review. Automated exposure control, iterative reconstruction, and/or weight based adjustment of the mA/kV was utilized to reduce the radiation dose to as low as reasonably achievable.; CT of the lumbar spine was performed without the administration of intravenous contrast. Multiplanar reformatted images are provided for review. Adjustment of mA and/or kV according to patient size was utilized. Automated exposure control, iterative reconstruction, and/or weight based adjustment of the mA/kV was utilized to reduce the radiation dose to as low as reasonably achievable. COMPARISON: None. HISTORY: ORDERING SYSTEM PROVIDED HISTORY: fall TECHNOLOGIST PROVIDED HISTORY: fall Decision Support Exception - unselect if not a suspected or confirmed emergency medical condition->Emergenc y Medical Condition (MA) FINDINGS: CT SCAN HEAD: BRAIN/VENTRICLES: There is no acute intracranial hemorrhage, mass effect or midline shift. No abnormal extra-axial fluid collection. The layne-white differentiation is maintained without evidence of an acute infarct. There is no evidence of hydrocephalus. ORBITS: The visualized portion of the orbits demonstrate no acute abnormality. SINUSES: The visualized paranasal sinuses and mastoid air cells demonstrate no acute abnormality. SOFT TISSUES/SKULL: No acute abnormality involving the visualized skull or soft tissues. CT SCAN CERVICAL SPINE: BONES/ALIGNMENT: The alignment of the cervical spine is within normal limits. No acute fractures or dislocations are seen. DEGENERATIVE CHANGES: There is multilevel degenerative disc disease of the cervical spine. SOFT TISSUES: There is no prevertebral soft tissue swelling. CT SCAN THORACIC SPINE: BONES/ALIGNMENT: The alignment of the thoracic spine is within normal limits. No acute fractures or dislocations are seen. There is a Schmorl's node involving the superior endplate of T6. There is a thoracic spinal stimulator. DEGENERATIVE CHANGES: There is mild degenerative disc disease of the thoracic spine. SOFT TISSUES: There is no prevertebral soft tissue swelling. CT SCAN LUMBAR SPINE: BONES/ALIGNMENT: The alignment of the lumbar spine is within normal limits. No acute fractures or dislocations are seen. DEGENERATIVE CHANGES: There is degenerative disease of the lumbar spine most pronounced at L1-2 and L4-5. SOFT TISSUES: There is no prevertebral soft tissue swelling. IMPRESSION: 1. No acute intracranial abnormality. 2. No acute traumatic abnormality involving the cervical, thoracic or lumbar spine. [facility] [employer] No Panel InformationOrdered By: Franck Jauregui on 07-01-2023 [facility] [employer] Work Phone: XR Ankle - left 3 Viewson IMPRESSION: Stable arthrodesis of the tibiotalar and subtalar joints with intact fixation hardware. Slightly progressive bony bridging. OLOGY EXAM: XR ANKLE LEFT 3+ VIEWS, 06/15/2023 13:35 PM COMPARISON: Left ankle radiographs 05/04/2023 CLINICAL INDICATIONS: pain RELEVANT CLINICAL HISTORY: M25.572:Left ankle pain, unspecified chronicity 3 views WB as trev; FINDINGS: 3 weight-bearing images obtained. Effusion: There is no joint effusion. Soft Tissue: Soft tissue swelling is present diffusely. Bone: Stable arthrodesis of the tibiotalar and subtalar joints with intact fixation hardware. Slightly progressive bony bridging. Joint: Degenerative changes are seen in the visualized midfoot. RADIOLOGY Akil Zurita MD - 06/15/2023 EXAM: XR ANKLE LEFT 3+ VIEWS, 06/15/2023 13:35 PM COMPARISON: Left ankle radiographs 05/04/2023 CLINICAL INDICATIONS: pain RELEVANT CLINICAL HISTORY: M25.572:Left ankle pain, unspecified chronicity 3 views WB as trev; FINDINGS: 3 weight-bearing images obtained. Effusion: There is no joint effusion. Soft Tissue: Soft tissue swelling is present diffusely. Bone: Stable arthrodesis of the tibiotalar and subtalar joints with intact fixation hardware. Slightly progressive bony bridging. Joint: Degenerative changes are seen in the visualized midfoot. IMPRESSION IMPRESSION: Stable arthrodesis of the tibiotalar and subtalar joints with intact fixation hardware. Slightly progressive bony bridging. [facility] Radiology Study observation (narrative) [facility] XR Ankle - left 3 ViewsOrder ed By: Akil Zurita on 06-15-2023 [facility] Work Phone: XR Ankle - left 3 Viewson IMPRESSION: Stable left ankle series status post tibiotalar and subtalar arthrodesis without additional changes to either joint. OLOGY EXAM: XR ANKLE LEFT 3 VIEWS, 05/04/2023 13:52 PM COMPARISON: April 06, 2023 CLINICAL INDICATIONS: left ankle pain RELEVANT CLINICAL HISTORY: M19.072:Arthritis of left ankle AP, mortise, lateral, WB as trev; FINDINGS: 3 nonweight-bearing images obtained. There is diffuse soft swelling. Atrophy of the calf musculature is noted. There is atherosclerotic calcifications noted. Postsurgical changes are redemonstrated in the hindfoot. A retrograde intramedullary peter is noted with 2 proximal and 3 distal interlocking screws traversing the posterior subtalar and the tibiotalar joints. No evidence of hardware failure. There is no gross change in the tibiotalar and subtalar joint appearance. Hypertrophic osseous changes at the medial malleolus and lateral malleolus appears stable. RADIOLOGY Erick Rogers MD - 05/04/2023 EXAM: XR ANKLE LEFT 3 VIEWS, 05/04/2023 13:52 PM COMPARISON: April 06, 2023 CLINICAL INDICATIONS: left ankle pain RELEVANT CLINICAL HISTORY: M19.072:Arthritis of left ankle AP, mortise, lateral, WB as trev; FINDINGS: 3 nonweight-bearing images obtained. There is diffuse soft swelling. Atrophy of the calf musculature is noted. There is atherosclerotic calcifications noted. Postsurgical changes are redemonstrated in the hindfoot. A retrograde intramedullary peter is noted with 2 proximal and 3 distal interlocking screws traversing the posterior subtalar and the tibiotalar joints. No evidence of hardware failure. There is no gross change in the tibiotalar and subtalar joint appearance. Hypertrophic osseous changes at the medial malleolus and lateral malleolus appears stable. IMPRESSION IMPRESSION: Stable left ankle series status post tibiotalar and subtalar arthrodesis without additional changes to either joint. [facility] Radiology Study observation (narrative) [facility] XR Ankle - left 3 ViewsOrder ed By: Erick Rogers on 05-04-2023 [facility] Work Phone: No Panel Informationon 03-16 Yue Yang 03/16/2023 3:22 PM CAST APPLICATION Date/Time: 03/16/2023 1:00 PM Performed by: AIDAN Brown Authorized by: AIDAN Brown Injury Injury Location: ankle Location details: left ankle Pre-procedure assessment neurovascularly intact Range of motion: normal Procedure: Immobilization: splint Splint/Brace type: short leg Patient Extremity Position: neutral Supplies used: plaster Plaster rolls used: 4 Post-procedure assessment neurovascularly intact Range of motion: unchanged Patient tolerance: patient tolerated the procedure well with no immediate complications Consent: Consent was obtained prior to the procedure after discussion of the risks, benefits and alternatives, and expected outcomes were discussed with the patient. The possibilities of reaction to medication, bleeding, infection, the need for additional procedures, failure to diagnosis a condition, and creating a complication requiring operation were discussed with the patient. The patient concurred with the proposed plan, giving consent. [facility] Radiology Study observation (narrative) [facility] CBC AND ELECTRONIC DIFFon Basophils (Bld) [#/Vol] K/uL 0.00 - 0.09 K/uL [facility] Basophils/100 WBC (Bld) 0.2 % O [facility] Differential cell count method Nom (Bld) Electronic Differential [facility] Eosinophils (Bld) [#/Vol] 0.20 10*3/uL 0. 00 - 0.48 K/uL [facility] Eosinophils/100 WBC (Bld) 2.4 % [facility] Erythrocyte distribution width (RBC) [Ratio] 11.6 % 10.9 - 14.3 % [facility] Hematocrit (Bld) [Volume fraction] 34.7 % Low 39.6 - 48.8 % [facility] Hemoglobin (Bld) [Mass/Vol] 11.4 g/dL Low 13.4 - 16.8 g/dL [facility] Immature granulocytes (Bld) [#/Vol] 0.09 10*3/uL High NINF - 0.07 K/uL [facility] Immature granulocytes/100 WBC (Bld) 1.1 % [facility] Interpretation and review of laboratory results Abnormal [facility] Lymphocytes (Bld) [#/Vol] 1.25 10*3/uL 0. 83 - 3.57 K/uL [facility] Lymphocytes/100 WBC (Bld) 15.0 % [facility] MCH (RBC) [Entitic mass] 31.4 pg 26. 1 - 33.3 pg [facility] MCHC (RBC) [Mass/Vol] 32.9 g/dL 31.9 - 36.5 g/dL [facility] MCV (RBC) [Entitic vol] 95.6 fL High 79.0 - 94.5 fL [facility] Monocytes (Bld) [#/Vol] 0.95 10*3/uL High 0.24 - 0.93 K/uL [facility] Monocytes/100 WBC (Bld) 11.4 % [facility] Neutrophils (Bld) [#/Vol] 5.82 10*3/uL 1. 57 - 6.19 K/uL [facility] Nucleated RBC/100 WBC (Bld) [Ratio] 0.0 % NINF [facility] Platelet mean volume (Bld) [Entitic vol] 11.2 fL 8.7 - 12.3 fL [facility] Platelets (Bld) [#/Vol] 186 10*3/uL 146 - 337 K/uL [facility] RBC (Bld) [#/Vol] 3.63 10*6/uL Low [facility] Segmented neutrophils/100 WBC (Bld) 69.9 % [facility] WBC (Bld) [#/Vol] 8.33 10*3/uL 3.73 - 10. 10 K/uL [facility] CHEM 7 (LYTES,BUN,CREA,GLUC) on 03-01-2023 Anion gap [Moles/Vol] 13 mmol/L 7 - 17 mmol/L [facility] Chloride [Moles/Vol] 97 mmol/L Low 98 - 10 8 mmol/L [facility] CO2 [Moles/Vol] 23 mmol/L 21 - 31 mmol/L [facility] Creatinine [Mass/Vol] 0.81 mg/dL 0.70 - 1.30 mg/dL [facility] GFR/1.73 sq M.predicted CKD-EPI (S/P/Bld) [Vol rate/Area] - [facility] Comment on above: Reported eGFR is bas ed on the CKD-EPI 2020 equation using creatinine, age, and sex. Glucose [Mass/Vol] 118 mg/dL High 70 - 99 mg/dL [facility] Interpretation and review of laboratory results Abnormal [facility] Osmolality Calc [Osmolality] 272 Low [facility] Potassium [Moles/Vol] 3.5 mmol/L 3.5 - 5.0 mmol/L [facility] Sodium [Moles/Vol] 129 mmol/L Low 135 - 145 mmol/L [facility] Urea nitrogen [Mass/Vol] 12 mg/dL 7 - 25 mg/d L [facility] Urea nitrogen/Creatinine [Mass ratio] 15 mg/mg [facility] CHEM 6 (LYTES, BUN CREA)on 0 02-28-2023 Anion gap [Moles/Vol] 13 mmol/L 7 - 17 mmol/L [facility] Chloride [Moles/Vol] 98 mmol/L 98 - 10 8 mmol/L [facility] CO2 [Moles/Vol] 23 mmol/L 21 - 31 mmol/L [facility] Creatinine [Mass/Vol] 0.67 mg/dL Low 0.70 - 1.30 mg/dL [facility] GFR/1.73 sq M.predicted CKD-EPI (S/P/Bld) [Vol rate/Area] - PINF [facility] Comment on above: Reported eGFR is bas ed on the CKD-EPI 2020 equation using creatinine, age, and sex. Interpretation and review of laboratory results Abnormal [facility] Potassium [Moles/Vol] 4.2 mmol/L 3.5 - 5.0 mmol/L [facility] Sodium [Moles/Vol] 130 mmol/L Low 135 - 145 mmol/L [facility] Urea nitrogen [Mass/Vol] 12 mg/dL 7 - 25 mg/d L [facility] Urea nitrogen/Creatinine [Mass ratio] 18 mg/mg [facility] US Unspecified body region d uring surgeryOrdered By: Unassigned Pacs on 02-28-2023 [facility] Work Phone: US Unspecified body region d uring surgeryon 02-28-2023 Radiology Study observation (narrative) [facility] PT,INR,PTTon 02-22-2023 aPTT Coag (PPP) [Time] 33.0 s OS [facility] INR Coag (Bld) [Relative time] 1.1 {INR} 0.9 - 1.1 [facility] Interpretation and review of laboratory results Normal [facility] PT Coag (PPP) [Time] 13.7 s [facility] No Panel Informationon 02-13 IMPRESSION: Talar eversion with severe tibiotalar osteoarthritis. Soft tissue swelling. 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 OLOGY EXAM: XR FOOT LEFT 3 VIEWS, XR ANKLE LEFT 3+ VIEWS, 02/13/2023 13:59 PM COMPARISON: Left ankle radiographs 12/22/2022 CLINICAL INDICATIONS: left foot pain RELEVANT CLINICAL HISTORY: M19.072:Arthritis of left subtalar joint AP/Lat/Oblique weight bearing; FINDINGS: 3 weightbearing images of the left ankle and 3 weightbearing images of the left foot obtained. LEFT ANKLE: Soft Tissue: Soft tissue swelling is present. Bone: No acute osseous abnormality is identified. Bony proliferation arising from the medial and lateral malleoli represents remote ligamentous injury. Joint: Persistent talar eversion with tibiotalar osteoarthritis. Degenerative changes are seen throughout the visualized ankle and foot. LEFT FOOT: Soft Tissue: There is no significant soft tissue swelling. Bone: No acute osseous abnormality is identified. Joint: No evidence of dislocation. The tarsal-metatarsal joints appear grossly intact. Degenerative changes are seen throughout the foot. RADIOLOGY Akil Zurita MD - 02/13/2023 EXAM: XR FOOT LEFT 3 VIEWS, XR ANKLE LEFT 3+ VIEWS, 02/13/2023 13:59 PM COMPARISON: Left ankle radiographs 12/22/2022 CLINICAL INDICATIONS: left foot pain RELEVANT CLINICAL HISTORY: M19.072:Arthritis of left subtalar joint AP/Lat/Oblique weight bearing; FINDINGS: 3 weightbearing images of the left ankle and 3 weightbearing images of the left foot obtained. LEFT ANKLE: Soft Tissue: Soft tissue swelling is present. Bone: No acute osseous abnormality is identified. Bony proliferation arising from the medial and lateral malleoli represents remote ligamentous injury. Joint: Persistent talar eversion with tibiotalar osteoarthritis. Degenerative changes are seen throughout the visualized ankle and foot. LEFT FOOT: Soft Tissue: There is no significant soft tissue swelling. Bone: No acute osseous abnormality is identified. Joint: No evidence of dislocation. The tarsal-metatarsal joints appear grossly intact. Degenerative changes are seen throughout the foot. IMPRESSION IMPRESSION: Talar eversion with severe tibiotalar osteoarthritis. Soft tissue swelling. 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 [facility] No Panel InformationOrdered By: Akil Zurita on 02-13-2023 [facility] Work Phone: XR Ankle - left 3 [employer] Radiology Study observation (narrative) [facility] XR Foot - left 3 [employer] Radiology Study observation (narrative) [facility] Basic Metabolic Panelon - Anion gap [Moles/Vol] 8 mmol/L Low 9 - 17 mmol/L [facility] Calcium [Mass/Vol] 8.3 mg/dL Low 8.6 - 10. 4 mg/dL [facility] Chloride [Moles/Vol] 105 mmol/L 98 - 10 7 mmol/L [facility] CO2 [Moles/Vol] 24 mmol/L 20 - 31 mmol/L [facility] Creatinine [Mass/Vol] 0.61 mg/dL Low 0.70 - 1.20 mg/dL [facility] GFR/1.73 sq M.predicted MDRD (S/P/Bld) [Vol rate/Area] - PINF [facility] [employer] [facility] Comment on above: These results are not intended for use in patients <18 years of age. eGFR results are calculated without a race factor using the 2020 CKD-EPI equation. Careful clinical correlation is recommended, particularly when comparing to results calculated using previous equations. The CKD-EPI equation is less accurate in patients with extremes of muscle mass, extra-renal metabolism of creatine, excessive creatine ingestion, or following therapy that affects renal tubular secretion. Glucose [Mass/Vol] 80 mg/dL 70 - 99 mg/dL [facility] Interpretation and review of laboratory results Abnormal [facility] [employer] Potassium [Moles/Vol] 4.5 mmol/L 3.7 - 5.3 mmol/L [facility] Sodium [Moles/Vol] 137 mmol/L 135 - 144 mmol/L [facility] Urea nitrogen [Mass/Vol] 18 mg/dL 8 - 23 mg/d L [facility] Urea nitrogen/Creatinine (Bld) [Mass ratio] 30 High 9 - 20 [facility] CBC with Auto Differentialon 02-06-2023 Absolute Eos # 0.10 [place] [facility] Absolute Immature Granulocyte 0.09 [facility] Absolute Lymph # 1.12 [facility] Absolute [place] # 0.91 [facility] Basophils (Bld) [#/Vol] 0.04 10*3/uL [facility] Basophils/100 WBC (Bld) 1 % 0 - 2 % B [facility] Eosinophils/100 WBC (Bld) 2 % 1 - 4 % [facility] Hematocrit (Bld) [Volume fraction] 36.9 % Low 40.7 - 50.3 % [facility] Hemoglobin (Bld) [Mass/Vol] 12.1 g/dL Low 13.0 - 17.0 g/dL [facility] Immature granulocytes/100 WBC (Bld) 1 % High 0 [facility] Interpretation and review of laboratory results Abnormal [facility] Lymphocytes/100 WBC (Bld) 17 % Low 24 - 43 % [facility] MCH (RBC) [Entitic mass] 32.6 pg 25. 2 - 33.5 pg [facility] MCHC (RBC) [Mass/Vol] 32.8 g/dL 28.4 - 34.8 g/dL [facility] MCV (RBC) [Entitic vol] 99.5 fL 82.6 - 102.9 fL [facility] Monocytes/100 WBC (Bld) 14 % High 3 - 12 % B [facility] NRBC Automated 0.0 0.0 per 100 WBC [facility] Platelet distribution width (Bld) [Ratio] 12.7 % 11.8 - 14.4 % [facility] Platelet mean volume (Bld) [Entitic vol] 10.9 fL 8.1 - 13.5 fL [facility] Platelets (Bld) [#/Vol] 186 10*3/uL [facility] RBC (Bld) [#/Vol] 3.71 10*6/uL Low 4.21 - 5.7 7 m/uL [facility] Segmented neutrophils/100 WBC (Bld) 65 % 36 - 65 % [facility] Segs Absolute 4.34 [facility] WBC (Bld) [#/Vol] 6.6 10*3/uL [facility] Basic Metabolic Panel, Fasti ngon 01-30-2023 Anion gap [Moles/Vol] 8 mmol/L Low 9 - 17 mmol/L [facility] Calcium [Mass/Vol] 8.1 mg/dL Low 8.6 - 10. 4 mg/dL [facility] Chloride [Moles/Vol] 102 mmol/L 98 - 10 7 mmol/L [facility] CO2 [Moles/Vol] 23 mmol/L 20 - 31 mmol/L [facility] Creatinine [Mass/Vol] 0.62 mg/dL Low 0.70 - 1.20 mg/dL [facility] GFR/1.73 sq M.predicted MDRD (S/P/Bld) [Vol rate/Area] - PINF [facility] Comment on above: These results are not intended for use in patients <18 years of age. eGFR results are calculated without a race factor using the 2020 CKD-EPI equation. Careful clinical correlation is recommended, particularly when comparing to results calculated using previous equations. The CKD-EPI equation is less accurate in patients with extremes of muscle mass, extra-renal metabolism of creatine, excessive creatine ingestion, or following therapy that affects renal tubular secretion. Glucose [Mass/Vol] 87 mg/dL 70 - 99 mg/dL [facility] Interpretation and review of laboratory results Abnormal [facility] Potassium [Moles/Vol] 4.4 mmol/L 3.7 - 5.3 mmol/L [facility] Sodium [Moles/Vol] 133 mmol/L Low 135 - 144 mmol/L [facility] Urea nitrogen [Mass/Vol] 14 mg/dL 8 - 23 mg/d L [facility] Urea nitrogen/Creatinine (Bld) [Mass ratio] 23 High 9 - 20 [facility] CBC with Auto Differentialon 01-30-2023 Absolute Eos # 0.10 [place] [facility] Absolute Immature Granulocyte 0.11 [facility] Absolute Lymph # 1.15 [facility] Absolute [place] # 0.82 [facility] Basophils (Bld) [#/Vol] 0.04 10*3/uL [facility] Basophils/100 WBC (Bld) 1 % 0 - 2 % [facility] Eosinophils/100 WBC (Bld) 2 % 1 - 4 % [facility] Hematocrit (Bld) [Volume fraction] 37.3 % Low 40.7 - 50.3 % [facility] Hemoglobin (Bld) [Mass/Vol] 12.3 g/dL Low 13.0 - 17.0 g/dL [facility] Immature granulocytes/100 WBC (Bld) 2 % High 0 [facility] Interpretation and review of laboratory results Abnormal [place] [facility] Lymphocytes/100 WBC (Bld) 18 % Low 24 - 43 % [facility] MCH (RBC) [Entitic mass] 32.3 pg 25. 2 - 33.5 pg [facility] MCHC (RBC) [Mass/Vol] 33.0 g/dL 28.4 - 34.8 g/dL [facility] MCV (RBC) [Entitic vol] 97.9 fL 82.6 - 102.9 fL [facility] Monocytes/100 WBC (Bld) 13 % High 3 - 12 % B [facility] NRBC Automated 0.0 0.0 per 100 WBC [facility] Platelet distribution width (Bld) [Ratio] 13.2 % 11.8 - 14.4 % [facility] Platelet mean volume (Bld) [Entitic vol] 11.2 fL 8.1 - 13.5 fL [facility] Platelets (Bld) [#/Vol] 218 10*3/uL [facility] RBC (Bld) [#/Vol] 3.81 10*6/uL Low 4.21 - 5.7 7 m/uL [facility] Segmented neutrophils/100 WBC (Bld) 64 % 36 - 65 % [facility] Segs Absolute 4.15 [facility] WBC (Bld) [#/Vol] 6.4 10*3/uL [facility] Basic Metabolic Panelon Anion gap [Moles/Vol] 8 mmol/L Low 9 - 17 mmol/L [facility] Calcium [Mass/Vol] 8.6 mg/dL 8.6 - 10. 4 mg/dL [facility] Chloride [Moles/Vol] 100 mmol/L 98 - 10 7 mmol/L [facility] CO2 [Moles/Vol] 25 mmol/L 20 - 31 mmol/L [facility] Creatinine [Mass/Vol] 0.63 mg/dL Low 0.70 - 1.20 mg/dL [facility] GFR/1.73 sq M.predicted MDRD (S/P/Bld) [Vol rate/Area] - PINF [facility] Comment on above: These results are not intended for use in patients <18 years of age. eGFR results are calculated without a race factor using the 2020 CKD-EPI equation. Careful clinical correlation is recommended, particularly when comparing to results calculated using previous equations. The CKD-EPI equation is less accurate in patients with extremes of muscle mass, extra-renal metabolism of creatine, excessive creatine ingestion, or following therapy that affects renal tubular secretion. Glucose [Mass/Vol] 93 mg/dL 70 - 99 mg/dL [facility] Interpretation and review of laboratory results Abnormal [facility] Potassium [Moles/Vol] 4.0 mmol/L 3.7 - 5.3 mmol/L [facility] Sodium [Moles/Vol] 133 mmol/L Low 135 - 144 mmol/L [facility] Urea nitrogen [Mass/Vol] 8 mg/dL 8 - 23 mg/d L [facility] Urea nitrogen/Creatinine (Bld) [Mass ratio] 13 9 - 20 [facility] CBC with Auto Differentialon 01-16-2023 Absolute Eos # 0.05 [place] [facility] Absolute Immature Granulocyte 0.12 [facility] Absolute Lymph # 1.54 [facility] Absolute [place] # 0.51 [facility] Basophils (Bld) [#/Vol] 0.04 10*3/uL [facility] Basophils/100 WBC (Bld) 1 % 0 - 2 % B [facility] Eosinophils/100 WBC (Bld) 1 % 1 - 4 % [facility] Hematocrit (Bld) [Volume fraction] 36.6 % Low 40.7 - 50.3 % [facility] Hemoglobin (Bld) [Mass/Vol] 12.3 g/dL Low 13.0 - 17.0 g/dL [facility] Immature granulocytes/100 WBC (Bld) 3 % High 0 [facility] Interpretation and review of laboratory results Abnormal [facility] Lymphocytes/100 WBC (Bld) 33 % 24 - 43 % [facility] MCH (RBC) [Entitic mass] 32.4 pg 25. 2 - 33.5 pg [facility] MCHC (RBC) [Mass/Vol] 33.6 g/dL 28.4 - 34.8 g/dL [facility] MCV (RBC) [Entitic vol] 96.3 fL 82.6 - 102.9 fL [facility] Monocytes/100 WBC (Bld) 11 % 3 - 12 % B [facility] NRBC Automated 0.0 0.0 per 100 WBC [facility] Platelet distribution width (Bld) [Ratio] 14.3 % 11.8 - 14.4 % [facility] Platelet mean volume (Bld) [Entitic vol] 11.0 fL 8.1 - 13.5 fL [facility] Platelets (Bld) [#/Vol] 216 10*3/uL [facility] RBC (Bld) [#/Vol] 3.80 10*6/uL Low 4.21 - 5.7 7 m/uL [facility] Segmented neutrophils/100 WBC (Bld) 51 % 36 - 65 % [facility] Segs Absolute 2.35 [facility] WBC (Bld) [#/Vol] 4.6 10*3/uL [facility] COVID-19, Rapidon 01-12-2023 SARS-CoV-2 (COVID-19) RdRp gene RENETTA+probe Ql (Resp) Not detected Not Detected [facility] Comment on above: Rapid NAAT: The specimen is NEGATIVE for SARS-CoV-2, the novel coronavirus associated with COVID-19. The ID NOW COVID-19 assay is designed to detect the virus that causes COVID-19 in patients with signs and symptoms of infection who are suspected of COVID-19. An individual without symptoms of COVID-19 and who is not shedding SARS-CoV-2 virus would expect to have a negative (not detected) result in this assay. Negative results should be treated as presumptive and, if inconsistent with clinical signs and symptoms or necessary for patient management, should be tested with an alternative molecular assay. Negative results do not preclude SARS-CoV-2 infection and should not be used as the sole basis for patient management decisions. Fact sheet for Healthcare Providers: https://www.fda.gov/media/083695/download Fact sheet for Patients: https://www.fda.gov/media/286654/download Methodology: Isothermal Nucleic Acid Amplification Specimen Description .NASOPHARYNGEAL SWAB [facility] Rapid influenza A/B antigens on 01-12-2023 FLUAV Ag Ql (Unsp spec) Negative NEGATIVE B [facility] Comment on above: for Influenza A Anti gen FLUBV Ag Ql (Unsp spec) Negative NEGATIVE B [facility] Comment on above: for Influenza B Anti gen. [facility] XR CHEST PORTABLEon 01-13-20 Stable chest without acute cardiopulmonary process. [facility] EXAMINATION: ONE XRAY VIEW OF THE CHEST 01/11/2023 11:31 pm COMPARISON: 08/08/2022 HISTORY: ORDERING SYSTEM PROVIDED HISTORY: cough TECHNOLOGIST PROVIDED HISTORY: cough FINDINGS: Cardiac and mediastinal silhouettes appear stable. Spinal stimulator wires. Postsurgical changes are seen in the shoulders bilaterally. No acute focal infiltrate. Left-sided PICC in the superior vena cava. No pneumothorax. No pleural effusion. No overt pulmonary edema. [facility] Jerson Stern MD - 01/12/2023 EXAMINATION: ONE XRAY VIEW OF THE CHEST 01/11/2023 11:31 pm COMPARISON: 08/08/2022 HISTORY: ORDERING SYSTEM PROVIDED HISTORY: cough TECHNOLOGIST PROVIDED HISTORY: cough FINDINGS: Cardiac and mediastinal silhouettes appear stable. Spinal stimulator wires. Postsurgical changes are seen in the shoulders bilaterally. No acute focal infiltrate. Left-sided PICC in the superior vena cava. No pneumothorax. No pleural effusion. No overt pulmonary edema. IMPRESSION: Stable chest without acute cardiopulmonary process. [facility] Work Phone: XR CHEST PORTABLEOrdered By: Jerson Stern on 01-12-2023 [facility] Work Phone: XR CHEST PORTABLEon 01-12-20 Radiology Study observation (narrative) [facility] Work Phone: Basic Metabolic Panelon 12-15 Anion gap [Moles/Vol] 8 mmol/L Low 9 - 17 mmol/L [facility] Calcium [Mass/Vol] 8.2 mg/dL Low 8.6 - 10. 4 mg/dL [facility] Chloride [Moles/Vol] 101 mmol/L 98 - 10 7 mmol/L [facility] CO2 [Moles/Vol] 26 mmol/L 20 - 31 mmol/L [facility] Creatinine [Mass/Vol] 0.71 mg/dL 0.70 - 1.20 mg/dL [facility] GFR/1.73 sq M.predicted MDRD (S/P/Bld) [Vol rate/Area] - PINF [facility] Comment on above: These results are not intended for use in patients <18 years of age. eGFR results are calculated without a race factor using the 2020 CKD-EPI equation. Careful clinical correlation is recommended, particularly when comparing to results calculated using previous equations. The CKD-EPI equation is less accurate in patients with extremes of muscle mass, extra-renal metabolism of creatine, excessive creatine ingestion, or following therapy that affects renal tubular secretion. Glucose [Mass/Vol] 102 mg/dL High 70 - 99 mg/dL [facility] Interpretation and review of laboratory results Abnormal [facility] Potassium [Moles/Vol] 4.0 mmol/L 3.7 - 5.3 mmol/L [facility] Sodium [Moles/Vol] 135 mmol/L 135 - 144 mmol/L [facility] Urea nitrogen [Mass/Vol] 17 mg/dL 8 - 23 mg/d L [facility] Urea nitrogen/Creatinine (Bld) [Mass ratio] 24 High 9 - 20 [facility] CBC with Auto Differentialon 01-09-2023 Absolute Eos # 0.09 [place] [facility] Absolute Immature Granulocyte 0.10 [facility] Absolute Lymph # 0.95 Low [facility] Absolute [place] # 1.08 [facility] Basophils (Bld) [#/Vol] 0.04 10*3/uL [facility] Basophils/100 WBC (Bld) 1 % 0 - 2 % B [facility] Eosinophils/100 WBC (Bld) 1 % 1 - 4 % [facility] Hematocrit (Bld) [Volume fraction] 36.0 % Low 40.7 - 50.3 % [facility] Hemoglobin (Bld) [Mass/Vol] 11.6 g/dL Low 13.0 - 17.0 g/dL [facility] Immature granulocytes/100 WBC (Bld) 2 % High 0 [facility] Interpretation and review of laboratory results Abnormal [facility] Lymphocytes/100 WBC (Bld) 15 % Low 24 - 43 % [facility] MCH (RBC) [Entitic mass] 31.9 pg 25. 2 - 33.5 pg [facility] MCHC (RBC) [Mass/Vol] 32.2 g/dL 28.4 - 34.8 g/dL [facility] MCV (RBC) [Entitic vol] 98.9 fL 82.6 - 102.9 fL [facility] Monocytes/100 WBC (Bld) 17 % High 3 - 12 % B [facility] NRBC Automated 0.0 0.0 per 100 WBC [facility] Platelet distribution width (Bld) [Ratio] 14.9 % High 11.8 - 14.4 % [facility] Platelet mean volume (Bld) [Entitic vol] 11.4 fL 8.1 - 13.5 fL [facility] Platelets (Bld) [#/Vol] 247 10*3/uL [facility] RBC (Bld) [#/Vol] 3.64 10*6/uL Low 4.21 - 5.7 7 m/uL [facility] Segmented neutrophils/100 WBC (Bld) 64 % 36 - 65 % [facility] Segs Absolute 4.29 [facility] WBC (Bld) [#/Vol] 6.6 10*3/uL [facility] CBC,PLATELETSon 01-02-2023 Erythrocyte distribution width (RBC) [Ratio] 15.8 % High 10.9 - 14.3 % [facility] Hematocrit (Bld) [Volume fraction] 36.6 % Low 39.6 - 48.8 % [facility] Hemoglobin (Bld) [Mass/Vol] 12.0 g/dL Low 13.4 - 16.8 g/dL [facility] Interpretation and review of laboratory results Abnormal [facility] MCH (RBC) [Entitic mass] 30.8 pg 26. 1 - 33.3 pg [facility] MCHC (RBC) [Mass/Vol] 32.8 g/dL 31.9 - 36.5 g/dL [facility] MCV (RBC) [Entitic vol] 93.8 fL 79.0 - 94.5 fL [facility] Platelet mean volume (Bld) [Entitic vol] 10.5 fL 8.7 - 12.3 fL [facility] Platelets (Bld) [#/Vol] 233 10*3/uL 146 - 337 K/uL [facility] RBC (Bld) [#/Vol] 3.90 10*6/uL Low [facility] WBC (Bld) [#/Vol] 6.79 10*3/uL 3.73 - 10. 10 K/uL [facility] CHEM 7 (LYTES,BUN,CREA,GLUC) on 01-02-2023 Anion gap [Moles/Vol] 9 mmol/L 7 - 17 mmol/L [facility] Chloride [Moles/Vol] 106 mmol/L 98 - 10 8 mmol/L [facility] CO2 [Moles/Vol] 26 mmol/L 21 - 31 mmol/L [facility] Creatinine [Mass/Vol] 0.82 mg/dL 0.70 - 1.30 mg/dL [facility] GFR/1.73 sq M.predicted CKD-EPI (S/P/Bld) [Vol rate/Area] - PINF [facility] Comment on above: Reported eGFR is bas ed on the CKD-EPI 2020 equation using creatinine, age, and sex. Glucose [Mass/Vol] 81 mg/dL 70 - 99 mg/dL [facility] Osmolality Calc [Osmolality] 287 [facility] Potassium [Moles/Vol] 3.9 mmol/L 3.5 - 5.0 mmol/L [facility] Sodium [Moles/Vol] 137 mmol/L 135 - 145 mmol/L [facility] Urea nitrogen [Mass/Vol] 16 mg/dL 7 - 25 mg/d L [facility] Urea nitrogen/Creatinine [Mass ratio] 20 mg/mg [facility] Cardiac echo study Procedure Ordered By: Sol Nugent on 01-02-2023 Ao peak sami 1.64 m/s [facility] Work Phone: Ao VTI 25.10 cm [facility] Work Phone: Ascending aorta 3.30 [facility] Work Phone: AV LVOT peak gradient 3 mmHg [facility] Work Phone: AV mean gradient [address] [facility] Work Phone: AV peak gradient [address] [facility] Work Phone: AV valve area 3.12 cm2 [facility] Work Phone: AV Velocity Ratio 0.53 [facility] Work Phone: COOPER (continuity Vmax) 2.40 [facility]2 [facility]: COOPER (continuity VTI) 3.12 cm2 [facility] Work Phone: COOPER index (continuity Vmax) 1.30 m[facility]s [facility] Work Phone: COOPER index (continuity VTI) 1.68 cm2/m2 [facility] Work Phone: Avg e' pk sami 0.07 m/s [facility] Work Phone: Avg E/e' ratio 8.74 [facility] Work Phone: Body surface area Derived from formula 1.85 m2 [facility] Work Phone: BP EF 58 % [facility] Work Phone: DI (Vmax) 0.53 [facility] Work Phone: DI (VTI) 0.69 m/2 [facility] Work Phone: E wave decelartion time 254.00 msec O [facility] Work Phone: e' lateral pk sami 0.0772 m/s [facility]: e' lateral pk sami 0.08 m/s [facility] Work Phone: e' septal pk sami 0.0696 [facility]: e' septal pk sami 0.07 m[facility]s [facility] Work Phone: E/A ratio 0.89 [facility] Work Phone: E/e' lateral [facility] 8.29 [facility]: E/e' septal ratio 9.20 [facility] Work Phone: EF SP 2CH 61 [facility] Work Phone: EF SP 4CH 54 [facility] Work Phone: FS 40 % 28 - 44 % [facility] Work Phone: IVS 0.92 cm [facility] Work Phone: LA AREA 2CH 18.10 cm2 [facility] Work Phone: LA area 4CH 16.80 cm2 [facility] Work Phone: LA ESV BP (MOD) [address] [facility] Work Phone: LA ESV BP (MOD) index 25 mL/m2 [facility] Work Phone: LA ESV SP 2CH (MOD) 50 mL [facility] Work Phone: LA ESV SP 4CH (MOD) 43 mL [facility] Work Phone: LA size 3.30 cm [facility] Work Phone: LEFT ATRIAL DIAMETER INDEX 1.78 cm/m2 [facility] Work Phone: LV EDV BP 81 mL [facility] Work Phone: LV EDV SP 2CH 79 mL [facility] Work Phone: LV EDV SP 4CH 76 mL [facility] Work Phone: LV ESV BP 34 mL [facility] Work Phone: LV ESV SP 2CH 31 mL [facility] Work Phone: LV ESV SP 4CH 35 mL [facility] Work Phone: LV mass 142.55 g [facility] Work Phone: LV Mass Index 77.1 g/m2 [facility] Work Phone: LV RWT 0.50 [facility] Work Phone: LV stroke volume BP (ml) 47 mL [facility] Work Phone: LV stroke volume index BP 25.41 mL/m2 [facility] Work Phone: LVIDD 4.32 [facility] Work Phone: LVIDS 2.59 [facility] Work Phone: LVOT area 4.52 cm2 [facility] Work Phone: LVOT diameter 2.40 cm [facility] Work Phone: LVOT peak sami 0.87 m/s [facility] Work Phone: LVOT peak VTI 17.30 [facility] Work Phone: LVOT stroke volume 78 cm3 [facility] Work Phone: LVOT stroke volume index 42.28 ml/m2 [facility] Work Phone: MV pk A sami 0.72 m[facility]s [facility] Work Phone: MV pk E sami 0.64 m[facility]s [facility] Work Phone: [facility] AV VTI RATIO PRE STRESS 0.69 [facility] Work Phone: [facility] ECHO LV BIPLANE SYSTOLIC VOLUME INDEX 18.38 mL/m2 [facility] Work Phone: [facility] ECHO LV BP DIASTOLIC VOLUME INDEX 43.78 mL/m2 [facility] Work Phone: [facility]SU RVOT VTI RATIO 0.67 [facility] Work Phone: PV mean gradient 2 mmHg [facility] Work Phone: PV peak gradient [address] [facility] Work Phone: PV PK SAMI 0.95 m/s [facility] Work Phone: PV VTI 19.50 cm [facility] Work Phone: PW 1.07 cm [facility] Work Phone: RVOT peak gradient 1 mmHg [facility] Work Phone: RVOT peak sami 0.59 m/s [facility] Work Phone: RVOT peak VTI 13.00 cm [facility] Work Phone: Sinus 3.60 cm [facility] Work Phone: STJ 3.04 cm [facility] Work Phone: Stroke Volume 78 cm/mL [facility] Work Phone: Stroke volume index 42 [facility] Work Phone: [facility] Work Phone: Cardiac echo study Procedure on 01-02-2023 - Poor quality study. - Grossly normal left ventricular size and function. Ejection fraction 55-60%. - Right ventricle is not well seen. Systolic function is grossly normal. - Normal atrial size. - Mitral annulus and aortic valve are calcified. - Valves poorly visualized. No large vegetation to extent seen. Left Ventricle Chamber size is normal. Normal wall thickness. Normal global systolic function. Regional wall motion is normal. Ejection fraction is normal (55 - 60%). Unable to assess diastolic function. Right Ventricle Right ventricle not well visualized. Systolic function is normal. Left Atrium Chamber size is normal. Right Atrium Chamber size is normal. Mitral Valve Mitral valve not well visualized. Leaflet mobility is normal. Mild annular calcification. No regurgitation. Tricuspid Valve Tricuspid valve not well visualized. Aortic Valve Aortic valve not well visualized. Leaflet calcification. No regurgitation. No stenosis. Pulmonic Valve Pulmonic valve not well visualized. No regurgitation. No stenosis. Pericardium Appears normal. No pericardial effusion. Septum The atrial septum is normal. Aorta No dilation to extent seen. Study Details A complete echocardiography study was performed. Overall study quality was poor. Contrast indication: evaluation of left ventricle contiguous segments. Contrast was administered. Study limitations include poor cardiac windows and technically difficult study. Imaging system used: Ganesh. [facility] Radiology Study observation (narrative) [facility] US Unspecified body region d uring surgeryOrdered By: Unassigned Pacs on 01-02-2023 [facility] Work Phone: Bacteria identified Cx Nom ( Unsp spec)Ordered By: Bárbara Corrigan on 01-01-2023 Microscopic observation Other stain Nom (Unsp spec) Neutrophils, Light [facility] Microscopic observation Other stain Nom (Unsp spec) Red Blood Cells Present [facility] Microscopic observation Other stain Nom (Unsp spec) No organisms seen [facility] Comment on above: Final report, verifi ed by Microbiology. [facility] Bacteria identified Cx Nom ( Unsp spec)on 01-01-2023 Microscopic observation Other stain Nom (Unsp spec) Neutrophils, None [facility] Microscopic observation Other stain Nom (Unsp spec) Mononuclear cells present [facility] Microscopic observation Other stain Nom (Unsp spec) Neutrophils, Rare [facility] CBC,PLATELETSon 01-01-2023 Erythrocyte distribution width (RBC) [Ratio] 15.3 % High 10.9 - 14.3 % [facility] Hematocrit (Bld) [Volume fraction] 36.0 % Low 39.6 - 48.8 % [facility] Hemoglobin (Bld) [Mass/Vol] 11.9 g/dL Low 13.4 - 16.8 g/dL [facility] Interpretation and review of laboratory results Abnormal [facility] MCH (RBC) [Entitic mass] 30.0 pg 26. 1 - 33.3 pg [facility] MCHC (RBC) [Mass/Vol] 33.1 g/dL 31.9 - 36.5 g/dL [facility] MCV (RBC) [Entitic vol] 90.7 fL 79.0 - 94.5 fL [facility] Platelet mean volume (Bld) [Entitic vol] 10.4 fL 8.7 - 12.3 fL [facility] Platelets (Bld) [#/Vol] 248 10*3/uL 146 - 337 K/uL [facility] RBC (Bld) [#/Vol] 3.97 10*6/uL Low [facility] WBC (Bld) [#/Vol] 8.95 10*3/uL 3.73 - 10. 10 K/uL [facility] CHEM 7 (LYTES,BUN,CREA,GLUC) on 01-01-2023 Anion gap [Moles/Vol] 9 mmol/L 7 - 17 mmol/L [facility] Chloride [Moles/Vol] 105 mmol/L 98 - 10 8 mmol/L [facility] CO2 [Moles/Vol] 25 mmol/L 21 - 31 mmol/L [facility] Creatinine [Mass/Vol] 0.86 mg/dL 0.70 - 1.30 mg/dL [facility] GFR/1.73 sq M.predicted CKD-EPI (S/P/Bld) [Vol rate/Area] - [facility] Comment on above: Reported eGFR is bas ed on the CKD-EPI 2020 equation using creatinine, age, and sex. Glucose [Mass/Vol] 85 mg/dL 70 - 99 mg/dL [facility] Osmolality Calc [Osmolality] 283 [facility] Potassium [Moles/Vol] 4.2 mmol/L 3.5 - 5.0 mmol/L [facility] Sodium [Moles/Vol] 135 mmol/L 135 - 145 mmol/L [facility] Urea nitrogen [Mass/Vol] 14 mg/dL 7 - 25 mg/d L [facility] Urea nitrogen/Creatinine [Mass ratio] 16 mg/mg [facility] Laboratory - Microbiology an d Antimicrobial susceptibilityOrdered By: Bárbara Corrigan on 01-01-2023 Bacteria identified Cx Nom (Unsp spec) NO GROWTH DAY 2 OF 2 [facility] CREATININE SERUMon 3 Creatinine [Mass/Vol] 0.62 mg/dL Low 0.70 - 1.30 mg/dL [facility] GFR/1.73 sq M.predicted CKD-EPI (S/P/Bld) [Vol rate/Area] - PINF [facility] Comment on above: Reported eGFR is bas ed on the CKD-EPI 2020 equation using creatinine, age, and sex. Interpretation and review of laboratory results Abnormal [facility] PLATELET COUNTon 12-31-2022 Interpretation and review of laboratory results Normal [facility] Platelet mean volume (Bld) [Entitic vol] 10.2 fL 8.7 - 12.3 fL [facility] Platelets (Bld) [#/Vol] 261 10*3/uL 146 - 337 K/uL [facility] C REACTIVE PROTEINon 023 CRP High sensitivity method [Mass/Vol] 2.12 mg/L NINF - 10.00 mg/L [facility] Interpretation and review of laboratory results Normal [facility] CBC,PLATELETSon 12-30-2022 Erythrocyte distribution width (RBC) [Ratio] 14.9 % High 10.9 - 14.3 % [facility] Hematocrit (Bld) [Volume fraction] 43.7 % 39.6 - 48.8 % [facility] Hemoglobin (Bld) [Mass/Vol] 14.5 g/dL 13.4 - 16.8 g/dL [facility] Interpretation and review of laboratory results Abnormal [facility] MCH (RBC) [Entitic mass] 30.5 pg 26. 1 - 33.3 pg [facility] MCHC (RBC) [Mass/Vol] 33.2 g/dL 31.9 - 36.5 g/dL [facility] MCV (RBC) [Entitic vol] 92.0 fL 79.0 - 94.5 fL [facility] Platelet mean volume (Bld) [Entitic vol] 9.9 fL 8.7 - 12.3 fL [facility] Platelets (Bld) [#/Vol] 241 10*3/uL 146 - 337 K/uL [facility] RBC (Bld) [#/Vol] 4.75 10*6/uL [facility] WBC (Bld) [#/Vol] 7.77 10*3/uL 3.73 - 10. 10 K/uL [facility] COMPREHENSIVE METABOLIC PANE Sandor 12-30-2022 Albumin [Mass/Vol] 3.8 g/dL 3.5 - 5.0 g/dL [facility] ALP [Catalytic activity/Vol] 66 U/L 32 - 126 U/L [facility] ALT [Catalytic activity/Vol] 15 U/L 10 - 52 U/L [facility] Anion gap [Moles/Vol] 12 mmol/L 7 - 17 mmol/L [facility] AST [Catalytic activity/Vol] 15 U/L 10 - 39 U/L [facility] Bilirubin [Mass/Vol] 0.6 mg/dL NINF - 1.5 mg/dL [facility] Calcium [Mass/Vol] 9.0 mg/dL 8.6 - 10. 5 mg/dL [facility] Chloride [Moles/Vol] 104 mmol/L 98 - 10 8 mmol/L [facility] CO2 [Moles/Vol] 25 mmol/L 21 - 31 mmol/L [facility] Creatinine [Mass/Vol] 0.69 mg/dL Low 0.70 - 1.30 mg/dL [facility] GFR/1.73 sq M.predicted CKD-EPI (S/P/Bld) [Vol rate/Area] - PINF [facility] Comment on above: Reported eGFR is bas ed on the CKD-EPI 2020 equation using creatinine, age, and sex. Glucose [Mass/Vol] 98 mg/dL 70 - 99 mg/dL [facility] Interpretation and review of laboratory results Abnormal [facility] Osmolality Calc [Osmolality] 288 [facility] Potassium [Moles/Vol] 4.0 mmol/L 3.5 - 5.0 mmol/L [facility] Protein [Mass/Vol] 6.8 g/dL 6.4 - 8.3 g/dL [facility] Sodium [Moles/Vol] 137 mmol/L 135 - 145 mmol/L [facility] Urea nitrogen [Mass/Vol] 14 mg/dL 7 - 25 mg/d L [facility] Urea nitrogen/Creatinine [Mass ratio] 20 mg/mg [facility] No Panel Informationon 12-30 [facility] SEDIMENTATION RATE, AUTOMATE DOrdered By: Kim Echols on 12-30-2022 ESR (Bld) [Velocity] 20 mm/h High NINF [facility] Interpretation and review of laboratory results Abnormal [facility] US Unspecified body region d uring surgeryon 12-30-2022 Radiology Study observation (narrative) 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 Advanced osseous demineralization. Remote ligamentous trauma. OLOGY EXAM: XR ANKLE LEFT 3+ VIEWS, 12/22/2022 13:18 PM COMPARISON: No prior studies available for comparison. CLINICAL INDICATIONS: left ankle pain RELEVANT CLINICAL HISTORY: M25.572:Left ankle pain, unspecified chronicity AP, mortise, lateral, WB as trev; FINDINGS: 3 weight-bearing images obtained. Effusion: There is no joint effusion. Soft Tissue: Soft tissue swelling about the ankle. There is diffuse calcified atheromatous plaque. Bone: Advanced osseous demineralization. Bony hypertrophy of the medial and lateral malleoli. Enthesopathic change noted at the calcaneal insertion of the Achilles tendon and origin of the central cord of the plantar fascia. Joint: Talar inversion is evident with borderline abutment of the tip of lateral malleolus at the calcaneus. Associated tibiotalar joint space narrowing and osteochondral irregularity of the tibial plafond and talar dome, most evident laterally. RADIOLOGY Campos Marquis DO - 12/22/2022 EXAM: XR ANKLE LEFT 3+ VIEWS, 12/22/2022 13:18 PM COMPARISON: No prior studies available for comparison. CLINICAL INDICATIONS: left ankle pain RELEVANT CLINICAL HISTORY: M25.572:Left ankle pain, unspecified chronicity AP, mortise, lateral, WB as trev; FINDINGS: 3 weight-bearing images obtained. Effusion: There is no joint effusion. Soft Tissue: Soft tissue swelling about the ankle. There is diffuse calcified atheromatous plaque. Bone: Advanced osseous demineralization. Bony hypertrophy of the medial and lateral malleoli. Enthesopathic change noted at the calcaneal insertion of the Achilles tendon and origin of the central cord of the plantar fascia. Joint: Talar inversion is evident with borderline abutment of the tip of lateral malleolus at the calcaneus. Associated tibiotalar joint space narrowing and osteochondral irregularity of the tibial plafond and talar dome, most evident laterally. 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 Advanced osseous demineralization. Remote ligamentous trauma. [facility] Radiology Study observation (narrative) [facility] XR Ankle - left 3 ViewsOrder ed By: Campos Marquis on 12-22-2022 [facility] Work Phone: Body fluid cell counton 11-13 Appearance, Fluid SLIGHTLY CLOUDY MARTINE[facility] [employer] [facility] Color, Fluid PALE YELLOW [facility] [employer] [facility] RBC, Fluid 4000 /mm3 [facility] [employer] [facility] Specimen type Nom (Spec) 1 CONTAINER [facility] [employer] [facility] WBC, Fluid 4944 /mm3 [facility] [employer] [facility] [employer] [facility] C-Reactive Proteinon 023 CRP [Mass/Vol] 9.8 mg/L High 0.0 - 5.0 mg/L [facility] Interpretation and review of laboratory results Abnormal [place] [facility] CBC with Auto Differentialon 11-25-2022 Absolute Eos # [facility] S [facility] Absolute Immature Granulocyte 0.16 [facility] Absolute Lymph # 0.51 Low DUTCH AWANO MADHU [facility] Absolute [place] # 0.30 [facility] Basophils (Bld) [#/Vol] 0.04 10*3/uL [facility] Basophils/100 WBC (Bld) 1 % 0 - 2 % B [facility] Eosinophils/100 WBC (Bld) 0 % Low 1 - 4 % [facility] Hematocrit (Bld) [Volume fraction] 41.1 % 40.7 - 50.3 % [facility] Hemoglobin (Bld) [Mass/Vol] 14.0 g/dL 13.0 - 17.0 g/dL [facility] Immature granulocytes/100 WBC (Bld) 2 % High 0 [facility] Interpretation and review of laboratory results Abnormal [place] [facility] Lymphocytes/100 WBC (Bld) 6 % Low 24 - 43 % [facility] MCH (RBC) [Entitic mass] 31.2 pg 25. 2 - 33.5 pg [facility] MCHC (RBC) [Mass/Vol] 34.1 g/dL 28.4 - 34.8 g/dL [facility] MCV (RBC) [Entitic vol] 91.5 fL 82.6 - 102.9 fL [facility] Monocytes/100 WBC (Bld) 4 % 3 - 12 % B [facility] NRBC Automated 0.0 0.0 per 100 WBC [facility] Platelet distribution width (Bld) [Ratio] 14.2 % 11.8 - 14.4 % [facility] Platelet mean volume (Bld) [Entitic vol] 9.7 fL 8.1 - 13.5 fL [facility] Platelets (Bld) [#/Vol] 219 10*3/uL [facility] RBC (Bld) [#/Vol] 4.49 10*6/uL 4.21 - 5.7 7 m/uL [facility] Segmented neutrophils/100 WBC (Bld) 87 % High 36 - 65 % [facility] Segs Absolute 7.63 [facility] WBC (Bld) [#/Vol] 8.6 10*3/uL [facility] [place] Sedimentation Rateon 023 Interpretation and review of laboratory results Abnormal [facility] Sed Rate 29 High [facility] Cult,Bloodon 08-16-2022 Cult,Blood Specimen Description .BLOOD Special Requests L HAND 9 ML Culture NO GROWTH 5 DAYS Report Status FINAL 08/16/2022 [facility] Comment on above: Performed By: #### B MPX #### [employer] [address] [place] [address] [phone] Occupational Therapy Professor: Amador Lopez MD Cult,Blood Specimen Description .BLOOD Special Requests R HAND 10 ML Culture NO GROWTH 5 DAYS Report Status FINAL 08/16/2022 [facility] Comment on above: Performed By: #### B MPX #### [employer] [address] [place] [address] [phone] Occupational Therapy Professor: Amador Lopez MD Cult,Bloodon 08-14-2022 Cult,Blood Specimen Description .BLOOD Special Requests LEEFT HAND 3ML Culture NO GROWTH 5 DAYS Report Status FINAL 08/14/2022 [facility] Comment on above: Performed By: #### B C #### [employer] [address] [place] [address] [phone] Occupational Therapy Professor: Amador Lopez MD Cult,Bloodon 08-12-2022 Cult,Blood Specimen Description .BLOOD Special Requests LEFT HAD 3ML Culture POSITIVE Blood Culture DIRECT GRAM STAIN FROM BOTTLE: GRAM POSITIVE COCCI IN CLUSTERS Targeted Organisms Not Detected: Staphylococcus , Streptococcus , or Enterococcus species Culture Results to Follow Methodology- Polymerase Chain Reaction (PCR) MICROCOCCUS SPECIES A single positive blood culture of coagulase negative Staphylocci, diphtheroids,microc occi, Cutibacterium, viridans Streptocci, Bacillus, or Lactobacillus species should be interpreted with caution and viewed as a likely skin contaminant. (NOTE) Direct Gram Stain from bottle and Polymerase Chain Reaction (PCR) results called to and read back by:WILLY Larkin 08/11/22 @0430 Report Status FINAL 08/12/2022 Abnormal [facility] Comment on above: Performed By: #### S ED, PRCAL, CDP, BMPX #### [facility] [address] [place] [address] [phone] Occupational Therapy Professor: Amador Lopez MD Basic Metab w/rfx MGon 08-11 (cont.) Normal [facility] Comment on above: Result Comment: Aver age GFR for 60-69 years old: 85 mL/min/1.73sq m Chronic Kidney Disease: <60 mL/min/1.73sq m Kidney failure: <15 mL/min/1.73sq m eGFR calculated using average adult body mass. Additional eGFR calculator available at: http://www.StubHub.BioTeSys/multiple_crcl_2011.htm Performed By: #### S ED, PRCAL, CDP, BMPX #### [facility] [address] [place] [address] [phone] Occupational Therapy Professor: Amador Lopez MD Anion gap [Moles/Vol] 6 mmol/L Low 9-17 [facility] Comment on above: Performed By: #### S ED, PRCAL, CDP, BMPX #### [facility] [address] [place] [address] [phone] Occupational Therapy Professor: Amador Lopez MD Calcium [Mass/Vol] 8.0 mg/dL Low 8.6-10.4 [facility] Comment on above: Performed By: #### S ED, PRCAL, CDP, BMPX #### [employer] [address] [place] [address] [phone] Occupational Therapy Professor: Amador Lopez MD Chloride [Moles/Vol] 105 mmol/L Normal 98-107 [facility] Comment on above: Performed By: #### S ED, PRCAL, CDP, BMPX #### [employer] [address] [place] [address] [phone] Occupational Therapy Professor: Amador Lopez MD CO2 [Moles/Vol] 22 mmol/L Normal 20-31 [facility] Comment on above: Performed By: #### S ED, PRCAL, CDP, BMPX #### [facility] [address] [place] [address] [phone] Occupational Therapy Professor: Amador Lopez MD Creatinine [Mass/Vol] 0.66 mg/dL Low 0.70-1.20 [facility] Comment on above: Performed By: #### S ED, PRCAL, CDP, BMPX #### [facility] [address] [place] [address] [phone] Occupational Therapy Professor: Amador Lopez MD GFR, Amer >60 Normal >60 [facility] Comment on above: Performed By: #### S ED, PRCAL, CDP, BMPX #### [facility] [address] [place] [address] [phone] Occupational Therapy Professor: Amador Lopez MD GFR,non Amer >60 Normal >60 [facility] Comment on above: Performed By: #### S ED, PRCAL, CDP, BMPX #### [facility] [employer] [address] [place] [address] [phone] Occupational Therapy Professor: Amador Lopez MD Glucose [Mass/Vol] 101 mg/dL High 70-99 [facility] Comment on above: Performed By: #### S ED, PRCAL, CDP, BMPX #### [facility] [address] [place] [address] [phone] Occupational Therapy Professor: Amador Lopez MD Potassium [Moles/Vol] 3.6 mmol/L Low 3.7-5.3 [facility] Comment on above: Performed By: #### S ED, PRCAL, CDP, BMPX #### [facility] [address] [place] [address] [phone] Occupational Therapy Professor: Amador Lopez MD Sodium [Moles/Vol] 133 mmol/L Low 135-144 [facility] Comment on above: Performed By: #### S ED, PRCAL, CDP, BMPX #### [facility] [employer] [address] [place] [address] [phone] Occupational Therapy Professor: Amador Lopez MD Urea nitrogen [Mass/Vol] 18 mg/dL Normal 8-23 [facility] Comment on above: Performed By: #### S ED, PRCAL, CDP, BMPX #### [facility] [employer] [address] [place] [address] [phone] Occupational Therapy Professor: Amador Lopez MD CBC with Diffon 08-11-2022 Abs. Basophil 0.03 k/uL Normal 0.00-0.20 [facility] Comment on above: Performed By: #### S ED, PRCAL, CDP, BMPX #### [facility] [employer] [address] [place] [address] [phone] Occupational Therapy Professor: Amador Lopez MD Abs.Imm.Granulocyte 0.12 k/uL Normal 0.00-0.30 [facility] Comment on above: Performed By: #### S ED, PRCAL, CDP, BMPX #### [facility] [employer] [address] [place] [address] [phone] Occupational Therapy Professor: Amador Lopez MD Abs.Neutrophil (Seg) 4.40 k/uL Normal 1.50-8.10 [facility] Comment on above: Performed By: #### S ED, PRCAL, CDP, BMPX #### [facility] [employer] [address] [place] [address] [phone] Occupational Therapy Professor: Amador Lopez MD Basophils/100 WBC (Bld) 0 % Normal 0-2 [facility] Comment on above: Performed By: #### S ED, PRCAL, CDP, BMPX #### [facility] [employer] [address] [place] [address] [phone] Occupational Therapy Professor: Amador Lopez MD Eosinophils (Bld) [#/Vol] 0.10 10*3/uL Normal 0.00-0.4 4 [facility] Comment on above: Performed By: #### S ED, PRCAL, CDP, BMPX #### [facility] [employer] [address] [place] [address] [phone] Occupational Therapy Professor: Amador Lopez MD Eosinophils/100 WBC (Bld) 1 % Normal 1-4 [facility] Comment on above: Performed By: #### S ED, PRCAL, CDP, BMPX #### [place] [address] Occupational Therapy Professor: Amador Lopez MD Erythrocyte distribution width (RBC) [Ratio] 13.6 % Normal 11.8-14.4 [facility] Comment on above: Performed By: #### S ED, PRCAL, CDP, BMPX #### [place] [address] Occupational Therapy Professor: Amador Lopez MD Hematocrit (Bld) [Volume fraction] 37.2 % Low 40.7-50.3 [facility] Comment on above: Performed By: #### S ED, PRCAL, CDP, BMPX #### [facility] [employer] [address] [place] [address] Occupational Therapy Professor: Amador Lopez MD Hemoglobin (Bld) [Mass/Vol] 12.4 g/dL Low 13.0-17.0 [facility] Comment on above: Performed By: #### S ED, PRCAL, CDP, BMPX #### [facility] [employer] [address] [place] [address] Occupational Therapy Professor: Amador Lopez MD Immature granulocytes/100 WBC (Bld) 2 % High 0 [facility] Comment on above: Performed By: #### S ED, PRCAL, CDP, BMPX #### [facility] [employer] [address] [place] [address] [phone] Occupational Therapy Professor: Amador Lopez MD Lymphocytes (Bld) [#/Vol] 1.57 10*3/uL Normal 1.10-3.7 0 [facility] Comment on above: Performed By: #### S ED, PRCAL, CDP, BMPX #### [address] [phone] Occupational Therapy Professor: Amador Lopez MD Lymphocytes/100 WBC (Bld) 22 % Low 24-43 [facility] Comment on above: Performed By: #### S ED, PRCAL, CDP, BMPX #### [place] [address] Occupational Therapy Professor: Amador Lopez MD MCH (RBC) [Entitic mass] 31.6 pg Normal 25.2-33.5 [facility] Comment on above: Performed By: #### S ED, PRCAL, CDP, BMPX #### [address] [phone] Occupational Therapy Professor: Amador Lopez MD MCHC (RBC) [Mass/Vol] 33.3 g/dL Normal 28.4-34.8 [facility] Comment on above: Performed By: #### S ED, PRCAL, CDP, BMPX #### [address] [phone] Occupational Therapy Professor: Amador Lopez MD MCV (RBC) [Entitic vol] 94.7 fL Normal 82.6-102.9 [facility] Comment on above: Performed By: #### S ED, PRCAL, CDP, BMPX #### [facility] [employer] [address] [place] [address] [phone] Occupational Therapy Professor: Amador Lopez MD Monocytes (Bld) [#/Vol] 1.03 10*3/uL Normal 0.10-1.20 [facility] Comment on above: Performed By: #### S ED, PRCAL, CDP, BMPX #### [facility] [address] [place] [address] [phone] Occupational Therapy Professor: Amador Lopez MD Monocytes/100 WBC (Bld) 14 % High 3-12 [facility] Comment on above: Performed By: #### S ED, PRCAL, CDP, BMPX #### [facility] [address] [place] [address] [phone] Occupational Therapy Professor: Amador Lopez MD Neutrophil (Seg) 61 % Normal 36-65 [facility] Comment on above: Performed By: #### S ED, PRCAL, CDP, BMPX #### [address] [phone] Occupational Therapy Professor: Amador Lopez MD NRBC Automated 0.0 per 100 WBC Normal 0.0 [facility] Comment on above: Performed By: #### S ED, PRCAL, CDP, BMPX #### [facility] [employer] [address] [place] [address] Occupational Therapy Professor: Amador Lopez MD Platelet mean volume (Bld) [Entitic vol] 10.2 fL Normal 8.1-13.5 [facility] Comment on above: Performed By: #### S ED, PRCAL, CDP, BMPX #### [facility] [employer] [address] [place] [address] Occupational Therapy Professor: Amador Lopez MD Platelets (Bld) [#/Vol] 234 10*3/uL Normal 138-453 [facility] Comment on above: Performed By: #### S ED, PRCAL, CDP, BMPX #### [facility] [employer] [address] [place] [address] Occupational Therapy Professor: Amador Lopez MD RBC (Bld) [#/Vol] 3.93 10*6/uL Low 4.21-5.77 [facility] Comment on above: Performed By: #### S ED, PRCAL, CDP, BMPX #### [facility] [address] [place] [address] Occupational Therapy Professor: Amador Lopez MD WBC (Bld) [#/Vol] 7.3 10*3/uL Normal 3.5-11.3 [facility] Comment on above: Performed By: #### S ED, PRCAL, CDP, BMPX #### [facility] [address] [place] [address] Occupational Therapy Professor: Amador Lopez MD K (Potassium)on 08-11-2022 Potassium [Moles/Vol] 3.7 mmol/L Normal 3.7-5.3 [facility] Comment on above: Performed By: #### B MPX #### [facility] [employer] [address] [place] [address] Occupational Therapy Professor: mAador Lopez MD Procalcitoninon 08-11-2022 Procalcitonin 0.08 ng/mL Normal <0.09 [facility] Comment on above: Result Comment: Suspected Sepsis: <0.50 ng/mL Low likelihood of sepsis. 0.50-2.00 ng/mL Increased likelihood of sepsis. Antibiotics encouraged. >2.00 ng/mL High risk of sepsis/shock. Antibiotics strongly encouraged. Suspected Lower Resp Tract Infections: <0.24 ng/mL Low likelihood of bacterial infection. >0.24 ng/mL Increased likelihood of bacterial infection. Antibiotics encouraged. With successful antibiotic therapy, PCT levels should decrease rapidly. (Half-life of 24 to 36 hours.) Procalcitonin values from samples collected within the first 6 hours of systemic infection may still be low. Retesting may be indicated. Values from day 1 and day 4 can be entered into the Change in Procalcitonin Calculator (www.dsxbhg-gdy-vaskkmqrbj.com) to determine the patient's Mortality Risk Prognosis In healthy neonates, plasma Procalcitonin (PCT) concentrations increase gradually after , reaching peak values at about 24 hours of age then decrease to normal values below 0.5 ng/mL by 48-72 hours of age. Performed By: #### S ED, PRCAL, CDP, BMPX #### [facility] [address] [place] [address] Occupational Therapy Professor: Amador Lopez MD Sedimentation Rateon 022 Sedimentation Rate 39 mm/Hr High 0-20 [facility] Comment on above: Performed By: #### S ED, PRCAL, CDP, BMPX #### [facility] [place] [address] Occupational Therapy Professor: Amador Lopez MD B12/Folate Panelon Cobalamin (Vitamin B12) [Mass/Vol] 356 pg/mL Normal 232-1245 [facility] Comment on above: Performed By: #### F EBGrace FERI #### [facility] [employer] [address] [place] [address] Occupational Therapy Professor: Amador Lopez MD Folic Acid 9.9 ng/mL Normal >4.8 [facility] Comment on above: Performed By: #### F EBC, FERI #### [facility] [employer] [address] [place] [address] Occupational Therapy Professor: Amador Lopez MD Basic Metab w/rfx MGon 08-10 (cont.) Normal [facility] Comment on above: Result Comment: Aver age GFR for 60-69 years old: 85 mL/min/1.73sq m Chronic Kidney Disease: <60 mL/min/1.73sq m Kidney failure: <15 mL/min/1.73sq m eGFR calculated using average adult body mass. Additional eGFR calculator available at: http://www.StubHub.com/multiple_crcl_2012.htm Performed By: #### B MPX #### [facility] [address] [place] [address] Occupational Therapy Professor: Amador Lopez MD Anion gap [Moles/Vol] 14 mmol/L Normal 9-17 [facility] Comment on above: Performed By: #### B MPX #### [facility] [address] [place] [address] Occupational Therapy Professor: Amador Lopez MD Calcium [Mass/Vol] 8.4 mg/dL Low 8.6-10.4 [facility] Comment on above: Performed By: #### B MPX #### [address] [address] Occupational Therapy Professor: Amador Lopez MD Chloride [Moles/Vol] 105 mmol/L Normal 98-107 [facility] Comment on above: Performed By: #### B MPX #### [address] [address] Occupational Therapy Professor: Amador Lopez MD CO2 [Moles/Vol] 19 mmol/L Low 20-31 [facility] Comment on above: Performed By: #### B MPX #### [address] [address] Occupational Therapy Professor: Amador Lopez MD Creatinine [Mass/Vol] 0.55 mg/dL Low 0.70-1.20 [facility] Comment on above: Performed By: #### B MPX #### [address] [address] Occupational Therapy Professor: Amador Lopez MD GFR, Amer >60 Normal >60 [facility] Comment on above: Performed By: #### B MPX #### [address] [address] Occupational Therapy Professor: Amador Lopez MD GFR,non Amer >60 Normal >60 [facility] Comment on above: Performed By: #### B MPX #### [address] [address] Occupational Therapy Professor: Amador Lopez MD Glucose [Mass/Vol] 83 mg/dL Normal 70-99 [facility] Comment on above: Performed By: #### B MPX #### [address] [address] Occupational Therapy Professor: Amador Lopez MD Potassium [Moles/Vol] 4.6 mmol/L Normal 3.7-5.3 [facility] Comment on above: Result Comment: SPEC IMEN SLIGHTLY HEMOLYZED, RESULTS MAY BE ADVERSELY AFFECTED. Performed By: #### B MPX #### [address] [address] Occupational Therapy Professor: Amador Lopez MD Sodium [Moles/Vol] 138 mmol/L Normal 135-144 [facility] Comment on above: Performed By: #### B MPX #### [address] [address] Occupational Therapy Professor: Amador Lopez MD Urea nitrogen [Mass/Vol] 13 mg/dL Normal 8-23 [facility] Comment on above: Performed By: #### B MPX #### [address] [address] Occupational Therapy Professor: Amador Lopez MD C-Reactive Proteinon 022 CRP [Mass/Vol] 108.3 mg/L High 0.0-5.0 [facility] Comment on above: Performed By: #### F EBGrace, FLORINA #### [address] [address] Occupational Therapy Professor: Amador Lopez MD CBC with Diffon 08-10-2022 Abs. Basophil <0.03 Normal 0.00-0.20 [facility] Comment on above: Performed By: #### B MPX #### [address] [address] Occupational Therapy Professor: Amador Lopez MD Abs.Imm.Granulocyte 0.11 k/uL Normal 0.00-0.30 [facility] Comment on above: Performed By: #### B MPX #### [address] [address] Occupational Therapy Professor: Amador Lopez MD Abs.Neutrophil (Seg) 6.26 k/uL Normal 1.50-8.10 [facility] Comment on above: Performed By: #### B MPX #### [address] [address] Occupational Therapy Professor: Amador Lopez MD Basophils/100 WBC (Bld) 0 % Normal 0-2 [facility] Comment on above: Performed By: #### B MPX #### [address] [address] Occupational Therapy Professor: Amador Lopez MD Eosinophils (Bld) [#/Vol] 0.07 10*3/uL Normal 0.00-0.4 4 [facility] Comment on above: Performed By: #### B MPX #### [address] [address] Occupational Therapy Professor: Amador Lopez MD Eosinophils/100 WBC (Bld) 1 % Normal 1-4 [facility] Comment on above: Performed By: #### B MPX #### [address] [address] Occupational Therapy Professor: Amador Lopez MD Erythrocyte distribution width (RBC) [Ratio] 13.9 % Normal 11.8-14.4 [facility] Comment on above: Performed By: #### B MPX #### [address] [address] Occupational Therapy Professor: Amador Lopez MD Hematocrit (Bld) [Volume fraction] 40.4 % Low 40.7-50.3 [facility] Comment on above: Performed By: #### B MPX #### [address] [address] Occupational Therapy Professor: Amador Lopez MD Hemoglobin (Bld) [Mass/Vol] 13.6 g/dL Normal 13.0-17.0 [facility] Comment on above: Performed By: #### B MPX #### [address] [address] Occupational Therapy Professor: Amador Lopez MD Immature granulocytes/100 WBC (Bld) 1 % High 0 [facility] Comment on above: Performed By: #### B MPX #### [address] [address] Occupational Therapy Professor: Amador Lopez MD Lymphocytes (Bld) [#/Vol] 1.02 10*3/uL Low 1.10-3.7 0 [facility] Comment on above: Performed By: #### B MPX #### [address] [address] Occupational Therapy Professor: Amador Lopez MD Lymphocytes/100 WBC (Bld) 12 % Low 24-43 [facility] Comment on above: Performed By: #### B MPX #### [address] [address] Occupational Therapy Professor: Amador Lopez MD MCH (RBC) [Entitic mass] 31.9 pg Normal 25.2-33.5 [facility] Comment on above: Performed By: #### B MPX #### [address] [address] Occupational Therapy Professor: Amador Lopez MD MCHC (RBC) [Mass/Vol] 33.7 g/dL Normal 28.4-34.8 [facility] Comment on above: Performed By: #### B MPX #### [address] [address] Occupational Therapy Professor: Amador Lopez MD MCV (RBC) [Entitic vol] 94.6 fL Normal 82.6-102.9 [facility] Comment on above: Performed By: #### B MPX #### [address] [address] Occupational Therapy Professor: Amador Lopez MD Monocytes (Bld) [#/Vol] 1.33 10*3/uL High 0.10-1.20 [facility] Comment on above: Performed By: #### B MPX #### [address] [address] Occupational Therapy Professor: Amador Lopez MD Monocytes/100 WBC (Bld) 15 % High 3-12 [facility] Comment on above: Performed By: #### B MPX #### [address] [address] Occupational Therapy Professor: Amador Lopez MD Neutrophil (Seg) 71 % High 36-65 [facility] Comment on above: Performed By: #### B MPX #### [address] [address] Occupational Therapy Professor: Amador Lopez MD NRBC Automated 0.0 per 100 WBC Normal 0.0 [facility] Comment on above: Performed By: #### B MPX #### [address] [address] Occupational Therapy Professor: Amador Lopez MD Platelet Count See Reflexed IPF Result Normal 138-453 [facility] Comment on above: Performed By: #### B MPX #### [address] [address] Occupational Therapy Professor: Amador Lopez MD RBC (Bld) [#/Vol] 4.27 10*6/uL Normal 4.21-5.77 [facility] Comment on above: Performed By: #### B MPX #### [address] [address] Occupational Therapy Professor: Amador Lopez MD WBC (Bld) [#/Vol] 8.8 10*3/uL Normal 3.5-11.3 [facility] Comment on above: Performed By: #### B MPX #### [address] [address] Occupational Therapy Professor: Amador Lopez MD Creatine Kinaseon 08-10-2022 CK [Catalytic activity/Vol] 206 U/L Normal 39-308 [facility] Comment on above: Performed By: #### F EBC, FERI #### [address] [address] Occupational Therapy Professor: Amador Lopez MD Ferritinon 08-10-2022 Ferritin [Mass/Vol] 431 ng/mL High 30-400 [facility] Comment on above: Performed By: #### F EBC, FERI #### [facility] [employer] [address] [place] [address] Occupational Therapy Professor: Amador Lopez MD Iron Binding Cap.on 08-10-20 22 % Fe Saturation 21 % Normal 20-55 [facility] Comment on above: Performed By: #### F EBC, FERI #### [facility] [employer] [address] [place] [address] Occupational Therapy Professor: Amador Lopez MD Iron [Mass/Vol] 35 ug/dL Low 59-158 [facility] Comment on above: Performed By: #### F EBC, FERI #### [facility] [employer] [address] [place] [address] Occupational Therapy Professor: Amador Lopez MD Total Fe Binding Cap 163 ug/dL Low 250-450 [facility] Comment on above: Performed By: #### F EBC, FERI #### [facility] [employer] [address] [place] [address] Occupational Therapy Professor: Amador Lopez MD Unbound Fe Bind Cap 128 ug/dL Normal 112-347 [facility] Comment on above: Performed By: #### F EBC, FERI #### [address] [address] Occupational Therapy Professor: Amador Lopez MD PLT, Immature Fract.on 08-10 Platelet, Fluoresc. 219 k/uL Normal 138-453 [facility] Comment on above: Performed By: #### B MPX #### [address] [address] Occupational Therapy Professor: Amador Lopez MD PLT, Immature Fract. 4.1 % Normal 1.1-10.3 [facility] Comment on above: Performed By: #### B MPX #### [address] [address] Occupational Therapy Professor: Amador Lopez MD Specimen Rejectionon Reason for rejection Unable to perform testing: Specimen quantity not sufficient. Normal [facility] Comment on above: Performed By: #### B MPX #### [address] [address] Occupational Therapy Professor: Amador Lopez MD Source of sample .BLOOD Normal [facility] Comment on above: Performed By: #### B MPX #### [address] [address] Occupational Therapy Professor: Amador Lopez MD Test ordered [id number] Normal [facility] Comment on above: Performed By: #### B MPX #### [address] [address] Occupational Therapy Professor: Amador Lopez MD Thyroxine, Freeon 08-10-2022 Thyroxine, Free 0.91 ng/dL Low 0.93-1.70 [facility] Comment on above: Performed By: #### F EBC, FERI #### [address] [phone] Occupational Therapy Professor: Amador Lopez MD Ammoniaon 08-09-2022 Ammonia (P) [Moles/Vol] 35 umol/L Normal 16-60 [facility] Comment on above: Performed By: #### B MPX #### [address] [address] Occupational Therapy Professor: Amador Lopez MD Basic Metab w/rfx MGon 08-09 (cont.) Normal [facility] Comment on above: Result Comment: Aver age GFR for 60-69 years old: 85 mL/min/1.73sq m Chronic Kidney Disease: <60 mL/min/1.73sq m Kidney failure: <15 mL/min/1.73sq m eGFR calculated using average adult body mass. Additional eGFR calculator available at: http://www.Appiph[employer]/multiple_crcl_2011.htm Performed By: #### B MPX #### [address] [address] Occupational Therapy Professor: Amador Lopez MD Anion gap [Moles/Vol] 14 mmol/L Normal 9-17 [facility] Comment on above: Performed By: #### B MPX #### [address] [address] Occupational Therapy Professor: Amador Lopez MD Calcium [Mass/Vol] 8.8 mg/dL Normal 8.6-10.4 [facility] Comment on above: Performed By: #### B MPX #### [address] [address] Occupational Therapy Professor: Amador Lopez MD Chloride [Moles/Vol] 104 mmol/L Normal 98-107 [facility] Comment on above: Performed By: #### B MPX #### [address] [address] Occupational Therapy Professor: Amador Lopez MD CO2 [Moles/Vol] 18 mmol/L Low 20-31 [facility] Comment on above: Performed By: #### B MPX #### [address] [address] Occupational Therapy Professor: Amador Lopez MD Creatinine [Mass/Vol] 0.55 mg/dL Low 0.70-1.20 [facility] Comment on above: Performed By: #### B MPX #### [address] [address] Occupational Therapy Professor: Amador Lopez MD GFR, Amer >60 Normal >60 [facility] Comment on above: Performed By: #### B MPX #### [address] [address] Occupational Therapy Professor: Amador Lopez MD GFR,non Amer >60 Normal >60 [facility] Comment on above: Performed By: #### B MPX #### [address] [address] Occupational Therapy Professor: Amador Lopez MD Glucose [Mass/Vol] 80 mg/dL Normal 70-99 [facility] Comment on above: Performed By: #### B MPX #### [address] [address] Occupational Therapy Professor: Amador Lopez MD Potassium [Moles/Vol] 4.5 mmol/L Normal 3.7-5.3 [facility] Comment on above: Performed By: #### B MPX #### [address] [address] Occupational Therapy Professor: Amador Lopez MD Sodium [Moles/Vol] 136 mmol/L Normal 135-144 [facility] Comment on above: Performed By: #### B MPX #### [address] [address] Occupational Therapy Professor: Amador Lopez MD Urea nitrogen [Mass/Vol] 7 mg/dL Low 8-23 [facility] Comment on above: Performed By: #### B MPX #### [place] [address] Occupational Therapy Professor: Amador Lopez MD Basic Metabolic Profon 08-09 (cont.) Normal [facility] Comment on above: Result Comment: Aver age GFR for 60-69 years old: 85 mL/min/1.73sq m Chronic Kidney Disease: <60 mL/min/1.73sq m Kidney failure: <15 mL/min/1.73sq m eGFR calculated using average adult body mass. Additional eGFR calculator available at: http://www.Appiph[employer]/multiple_crcl_2011.htm Performed By: #### B MPX #### [place] [address] Occupational Therapy Professor: Amador Lopez MD Anion gap [Moles/Vol] 12 mmol/L Normal 9-17 [facility] Comment on above: Performed By: #### B MPX #### [place] [address] Occupational Therapy Professor: Amador Lopez MD Calcium [Mass/Vol] 8.5 mg/dL Low 8.6-10.4 [facility] Comment on above: Performed By: #### B MPX #### [facility] [employer] [address] [place] [address] Occupational Therapy Professor: Amador Lopez MD Chloride [Moles/Vol] 103 mmol/L Normal 98-107 [facility] Comment on above: Performed By: #### B MPX #### [place] [address] Occupational Therapy Professor: Amador Lopez MD CO2 [Moles/Vol] 21 mmol/L Normal 20-31 [facility] Comment on above: Performed By: #### B MPX #### [address] [address] Occupational Therapy Professor: Amador Lopez MD Creatinine [Mass/Vol] 0.56 mg/dL Low 0.70-1.20 [facility] Comment on above: Performed By: #### B MPX #### [address] [address] Occupational Therapy Professor: Amador Lopez MD GFR, Amer >60 Normal >60 [facility] Comment on above: Performed By: #### B MPX #### [address] [address] Occupational Therapy Professor: Amador Lopez MD GFR,non Amer >60 Normal >60 [facility] Comment on above: Performed By: #### B MPX #### [address] [address] Occupational Therapy Professor: Amador Lopez MD Glucose [Mass/Vol] 95 mg/dL Normal 70-99 [facility] Comment on above: Performed By: #### B MPX #### [address] [address] Occupational Therapy Professor: Amador Lopez MD Potassium [Moles/Vol] 4.0 mmol/L Normal 3.7-5.3 [facility] Comment on above: Performed By: #### B MPX #### [address] [address] Occupational Therapy Professor: Amador Lopez MD Sodium [Moles/Vol] 136 mmol/L Normal 135-144 [facility] Comment on above: Performed By: #### B MPX #### [address] [address] Occupational Therapy Professor: Amador Lopez MD Urea nitrogen [Mass/Vol] 7 mg/dL Low 8-23 [facility] Comment on above: Performed By: #### B MPX #### [address] [address] Occupational Therapy Professor: Amador Lopez MD C-Reactive Proteinon 022 CRP [Mass/Vol] 49.3 mg/L High 0.0-5.0 [facility] Comment on above: Performed By: #### B MPX #### [address] [address] Occupational Therapy Professor: Amador Lopez MD CBC with Diffon 08-09-2022 Abs. Basophil 0.04 k/uL Normal 0.00-0.20 [facility] Comment on above: Performed By: #### F MIRTA FERI #### [place] [address] Occupational Therapy Professor: mAador Lopez MD Abs.Imm.Granulocyte 0.11 k/uL Normal 0.00-0.30 [facility] Comment on above: Performed By: #### F MIRTA FERI #### [place] [address] Occupational Therapy Professor: Amador Lopez MD Abs.Neutrophil (Seg) 6.73 k/uL Normal 1.50-8.10 [facility] Comment on above: Performed By: #### F MIRTA FERI #### [address] [address] Occupational Therapy Professor: Amador Lopez MD Basophils/100 WBC (Bld) 0 % Normal 0-2 [facility] Comment on above: Performed By: #### F MIRTA FERI #### [address] [address] Occupational Therapy Professor: Amador Lopez MD Eosinophils (Bld) [#/Vol] 0.03 10*3/uL Normal 0.00-0.4 4 [facility] Comment on above: Performed By: #### F EBC, FERI #### [facility] [employer] [address] [place] [address] Occupational Therapy Professor: Amador Lopez MD Eosinophils/100 WBC (Bld) 0 % Low 1-4 [facility] Comment on above: Performed By: #### F EBC, FERI #### [facility] [employer] [address] [place] [address] Occupational Therapy Professor: Amador Lopez MD Erythrocyte distribution width (RBC) [Ratio] 13.5 % Normal 11.8-14.4 [facility] Comment on above: Performed By: #### F EBC, FERI #### [facility] [employer] [address] [place] [address] Occupational Therapy Professor: Amador Lopez MD Hematocrit (Bld) [Volume fraction] 41.2 % Normal 40.7-50.3 [facility] Comment on above: Performed By: #### F EBC, FERI #### [facility] [employer] [address] [place] [address] Occupational Therapy Professor: Amador Lopez MD Hemoglobin (Bld) [Mass/Vol] 14.3 g/dL Normal 13.0-17.0 [facility] Comment on above: Performed By: #### F EBC, FERI #### [facility] [employer] [address] [place] [address] Occupational Therapy Professor: Amador Lopez MD Immature granulocytes/100 WBC (Bld) 1 % High 0 [facility] Comment on above: Performed By: #### F EBC, FERI #### [facility] [employer] [address] [place] [address] Occupational Therapy Professor: Amador Lopez MD Lymphocytes (Bld) [#/Vol] 1.23 10*3/uL Normal 1.10-3.7 0 [facility] Comment on above: Performed By: #### F EBC, FERI #### [address] [address] Occupational Therapy Professor: Amador Lopez MD Lymphocytes/100 WBC (Bld) 13 % Low 24-43 [facility] Comment on above: Performed By: #### F EBC, FERI #### [address] [address] Occupational Therapy Professor: Amador Lopez MD MCH (RBC) [Entitic mass] 32.5 pg Normal 25.2-33.5 [facility] Comment on above: Performed By: #### F RAVINDER KIRBYI #### [address] [address] Occupational Therapy Professor: Amador Lopez MD MCHC (RBC) [Mass/Vol] 34.7 g/dL Normal 28.4-34.8 [facility] Comment on above: Performed By: #### F EBGrace FERI #### [address] [address] Occupational Therapy Professor: Amador Lopez MD MCV (RBC) [Entitic vol] 93.6 fL Normal 82.6-102.9 [facility] Comment on above: Performed By: #### F EBGrace FERI #### [place] [address] Occupational Therapy Professor: Amador Lopez MD Monocytes (Bld) [#/Vol] 1.37 10*3/uL High 0.10-1.20 [facility] Comment on above: Performed By: #### F EBGrace FERI #### [address] [address] Occupational Therapy Professor: Amador Lopez MD Monocytes/100 WBC (Bld) 14 % High 3-12 [facility] Comment on above: Performed By: #### F EBGrace FERI #### [address] [address] Occupational Therapy Professor: Amador Lopez MD Neutrophil (Seg) 72 % High 36-65 [facility] Comment on above: Performed By: #### F EBC, FERI #### [address] [address] Occupational Therapy Professor: Amador Lopez MD NRBC Automated 0.0 per 100 WBC Normal 0.0 [facility] Comment on above: Performed By: #### F EBC, FERI #### [address] [address] Occupational Therapy Professor: Amador Lopez MD Platelet mean volume (Bld) [Entitic vol] 10.3 fL Normal 8.1-13.5 [facility] Comment on above: Performed By: #### F EBGrace FERI #### [address] [address] Occupational Therapy Professor: Amador Lopez MD Platelets (Bld) [#/Vol] 261 10*3/uL Normal 138-453 [facility] Comment on above: Performed By: #### F EBGrace FERI #### [address] [address] Occupational Therapy Professor: Amador Lopez MD RBC (Bld) [#/Vol] 4.40 10*6/uL Normal 4.21-5.77 [facility] Comment on above: Performed By: #### F EBC, FERI #### [address] [address] Occupational Therapy Professor: Amador Lopez MD WBC (Bld) [#/Vol] 9.5 10*3/uL Normal 3.5-11.3 [facility] Comment on above: Performed By: #### F EBC FERI #### [address] [address] Occupational Therapy Professor: Amador Lopez MD Abs. Basophil 0.04 k/uL Normal 0.00-0.20 [facility] Comment on above: Performed By: #### B MPX #### [address] [address] Occupational Therapy Professor: Amador Lopez MD Abs. Eosinophil <0.03 Normal 0.00-0.44 [facility] Comment on above: Performed By: #### B MPX #### [address] [address] Occupational Therapy Professor: Amador Lopez MD Abs.Imm.Granulocyte 0.11 k/uL Normal 0.00-0.30 [facility] Comment on above: Performed By: #### B MPX #### [place] [address] Occupational Therapy Professor: Amador Lopez MD Abs.Neutrophil (Seg) 6.52 k/uL Normal 1.50-8.10 [facility] Comment on above: Performed By: #### B MPX #### [place] [address] Occupational Therapy Professor: Amador Lopez MD Basophils/100 WBC (Bld) 1 % Normal 0-2 M [facility] Comment on above: Performed By: #### B MPX #### [address] [address] Occupational Therapy Professor: Amador Lopez MD Eosinophils/100 WBC (Bld) 0 % Low 1-4 [facility] Comment on above: Performed By: #### B MPX #### [address] [address] Occupational Therapy Professor: Amador Lopez MD Erythrocyte distribution width (RBC) [Ratio] 13.5 % Normal 11.8-14.4 [facility] Comment on above: Performed By: #### B MPX #### [address] [address] Occupational Therapy Professor: Amador Lopez MD Hematocrit (Bld) [Volume fraction] 39.8 % Low 40.7-50.3 [facility] Comment on above: Performed By: #### B MPX #### [address] [address] Occupational Therapy Professor: Amador Lopez MD Hemoglobin (Bld) [Mass/Vol] 13.6 g/dL Normal 13.0-17.0 [facility] Comment on above: Performed By: #### B MPX #### [address] [address] Occupational Therapy Professor: Amador Lopez MD Immature granulocytes/100 WBC (Bld) 1 % High 0 [facility] Comment on above: Performed By: #### B MPX #### [address] [address] Occupational Therapy Professor: Amador Lopez MD Lymphocytes (Bld) [#/Vol] 1.07 10*3/uL Low 1.10-3.7 0 [facility] Comment on above: Performed By: #### B MPX #### [address] [address] Occupational Therapy Professor: Amador Lopez MD Lymphocytes/100 WBC (Bld) 12 % Low 24-43 [facility] Comment on above: Performed By: #### B MPX #### [address] [address] Occupational Therapy Professor: Amador Lopez MD MCH (RBC) [Entitic mass] 31.8 pg Normal 25.2-33.5 [facility] Comment on above: Performed By: #### B MPX #### [address] [address] Occupational Therapy Professor: Amador Lopez MD MCHC (RBC) [Mass/Vol] 34.2 g/dL Normal 28.4-34.8 [facility] Comment on above: Performed By: #### B MPX #### [address] [address] Occupational Therapy Professor: Amador Lopez MD MCV (RBC) [Entitic vol] 93.0 fL Normal 82.6-102.9 [facility] Comment on above: Performed By: #### B MPX #### [address] [address] Occupational Therapy Professor: Amador Lopez MD Monocytes (Bld) [#/Vol] 1.06 10*3/uL Normal 0.10-1.20 [facility] Comment on above: Performed By: #### B MPX #### [place] [address] Occupational Therapy Professor: Amador Lopez MD Monocytes/100 WBC (Bld) 12 % Normal 3-12 [facility] Comment on above: Performed By: #### B MPX #### [address] [address] Occupational Therapy Professor: Amador Lopez MD Neutrophil (Seg) 74 % High 36-65 [facility] Comment on above: Performed By: #### B MPX #### [place] [address] Occupational Therapy Professor: Amador Lopez MD NRBC Automated 0.0 per 100 WBC Normal 0.0 [facility] Comment on above: Performed By: #### B MPX #### [address] [address] Occupational Therapy Professor: Amador Lopez MD Platelet mean volume (Bld) [Entitic vol] 10.1 fL Normal 8.1-13.5 [facility] Comment on above: Performed By: #### B MPX #### [facility] [place] [address] Occupational Therapy Professor: Amador Lopez MD Platelets (Bld) [#/Vol] 244 10*3/uL Normal 138-453 [facility] Comment on above: Performed By: #### B MPX #### [facility] [place] [address] Occupational Therapy Professor: Amador Lopez MD RBC (Bld) [#/Vol] 4.28 10*6/uL Normal 4.21-5.77 [facility] Comment on above: Performed By: #### B MPX #### [facility] [address] [place] [address] Occupational Therapy Professor: Amador Lopez MD WBC (Bld) [#/Vol] 8.8 10*3/uL Normal 3.5-11.3 [facility] Comment on above: Performed By: #### B MPX #### [facility] [address] [place] [address] Occupational Therapy Professor: Amador Lopez MD ELECTROENCEPHALOGRAMon 08-[address] [id number] ELECTROENCEPHALOGRA M REPORT PATIENT NAME: PRESTON CARRASQUILLO : 1955 MED REC NO: [id number] ROOM: 0130 ACCOUNT NO: [id number] ADMIT DATE: 08/08/2022 PROVIDER: Duane Braga MD DATE OF EE08/09/2022 ATTENDING OF RECORD: Maria Luz Meeks MD This is a 67-year-old patient with confusion and agitation. MEDICATIONS: Include Requip, Desyrel, Zofran, Seroquel, Neurontin, lisinopril. EEG FINDINGS: This is an 18-channel EEG and one EKG channel recording performed on a patient described to be awake, drowsy and asleep. The patient shows delayed waking rhythms. Background activity consists of poorly regulated 10 Hz activity in a 40-60 microvolt range, more prominent in the posterior head area, showing some reactivity to eye opening and closing. Over the anterior head regions, there are 15-20 Hz activity in 20-30 microvolt range. The record is prominent for mild degree of medium-amplitude 4-7 Hz activity seen throughout all head areas during waking state. There is presence of myogenic artifact seen intermittently throughout the recording. No lateralized or epileptiform disturbance is seen with drowsiness and sleep, there is further intrusion of slower frequencies in a theta and delta band. Hyperventilation is not performed. Photic stimulation is not performed. IMPRESSION: This EEG shows the presence of mild diffuse slowing. This EEG is concordant with diffuse encephalopathy. No clear lateralized or epileptiform disturbance is seen. DUANE BRAGA MD /[id number] Doc#: [id number] CC: Normal [facility] Lactic Acidon 08-09-2022 Lactic Acid,Whole Bl 1.2 mmol/L Normal 0.7-2.1 [facility] Comment on above: Performed By: #### B MPX #### [facility] [facility] [address] [place] [address] Occupational Therapy Professor: Amador Lopez MD Lactic Acid,Whole Bl 2.2 mmol/L High 0.7-2.1 [facility] Comment on above: Performed By: #### B MPX #### [facility] [address] [place] [address] Occupational Therapy Professor: Amador Lopez MD Magnesiumon 08-09-2022 Magnesium [Mass/Vol] 2.0 mg/dL Normal 1.6-2.6 [facility] Comment on above: Performed By: #### B MPX #### [facility] [address] [place] [address] Occupational Therapy Professor: Amador Lopez MD Procalcitoninon 08-09-2022 Procalcitonin 0.06 ng/mL Normal <0.09 [facility] Comment on above: Result Comment: Suspected Sepsis: <0.50 ng/mL Low likelihood of sepsis. 0.50-2.00 ng/mL Increased likelihood of sepsis. Antibiotics encouraged. >2.00 ng/mL High risk of sepsis/shock. Antibiotics strongly encouraged. Suspected Lower Resp Tract Infections: <0.24 ng/mL Low likelihood of bacterial infection. >0.24 ng/mL Increased likelihood of bacterial infection. Antibiotics encouraged. With successful antibiotic therapy, PCT levels should decrease rapidly. (Half-life of 24 to 36 hours.) Procalcitonin values from samples collected within the first 6 hours of systemic infection may still be low. Retesting may be indicated. Values from day 1 and day 4 can be entered into the Change in Procalcitonin Calculator ([email or web address]-geo-bsgeseynoi.BioTeSys) to determine the patient's Mortality Risk Prognosis In healthy neonates, plasma Procalcitonin (PCT) concentrations increase gradually after , reaching peak values at about 24 hours of age then decrease to normal values below 0.5 ng/mL by 48-72 hours of age. Performed By: #### B MPX #### [facility] [address] [place] [address] Occupational Therapy Professor: Amador Lopez MD Specimen Rejectionon 022 Reason for rejection Unable to perform testing: Specimen hemolyzed. Normal [facility] Comment on above: Performed By: #### S ED, PRCAL, CDP, BMPX #### [facility] [address] [place] [address] Occupational Therapy Professor: Amador Lopez MD Source of sample .BLOOD Normal [facility] Comment on above: Performed By: #### S ED, PRCAL, CDP, BMPX #### [facility] [address] [place] [address] Occupational Therapy Professor: Amador Lopez MD Test ordered BMPX [facility] Comment on above: Performed By: #### S ED, PRCAL, CDP, BMPX #### [facility] [address] [place] [address] Occupational Therapy Professor: Amador Lopez MD Thyroid Stim. Horm.on 2021 Thyroid Stim. Horm. 3.57 uIU/mL Normal 0.30-5.00 [facility] Comment on above: Performed By: #### B MPX #### [address] [address] Occupational Therapy Professor: Amador Lopez MD Tox Scr, Bld, EDon Acetaminophen [Mass/Vol] ug/mL Low 10-30 [facility] Comment on above: Performed By: #### B MPX #### [address] [address] Occupational Therapy Professor: Amador Lopez MD Salicylate <1 Low 3-10 [facility] Comment on above: Performed By: #### B MPX #### [address] [address] Occupational Therapy Professor: Amador Lopez MD Ethanol [Mass/Vol] mg/dL Normal <10 [facility] Comment on above: Performed By: #### B MPX #### [address] [address] Occupational Therapy Professor: Amador Lopez MD Ethanol percent <0.010 Normal <0.010 [facility] Comment on above: Performed By: #### B MPX #### [address] [address] Occupational Therapy Professor: Amador Lopez MD Toxic Tricyclic Sc,Bl Negative Normal NEG [facility] Comment on above: Performed By: #### B MPX #### [address] [address] Occupational Therapy Professor: Amador Lopez MD UA w/Reflex Cultureon 2021 Bilirubin, SemiQt,Ur Negative Normal NEG [facility] Comment on above: Performed By: #### F EBC, FERI #### [facility] [address] [place] [address] Occupational Therapy Professor: Amador Lopez MD Blood, Urine Negative Normal NEG [facility] Comment on above: Performed By: #### F EBC, FERI #### [facility] [address] [place] [address] Occupational Therapy Professor: Amador Lopez MD Clarity (U) Clear Normal CLEAR [facility] Comment on above: Performed By: #### F EBC, FERI #### [facility] [address] [place] [address] Occupational Therapy Professor: Amador Lopez MD Color (U) Yellow Normal YEL [facility] Comment on above: Performed By: #### F EBC, FERI #### [facility] [employer] [address] [place] [address] Occupational Therapy Professor: Amador Lopez MD Comment Microscopic exam not performed based on chemical results unless requested in Normal [facility] Comment on above: Result Comment: orig inal order. Performed By: #### F EBC, FERI #### [facility] [employer] [address] [place] [address] Occupational Therapy Professor: Amador Lopez MD Glucose Ql (U) Negative Normal NEG [facility] Comment on above: Performed By: #### F EBC, FERI #### [facility] [address] [place] [address] Occupational Therapy Professor: Amador Lopez MD Ketones Ql (U) SMALL Abnormal NEG [facility] Comment on above: Performed By: #### F EBC, FERI #### [facility] [address] [place] [address] Occupational Therapy Professor: Amador Lopez MD Leukocyte esterase Test strip Ql (U) Negative Normal NEG [facility] Comment on above: Performed By: #### F EBGrace FERI #### [facility] [employer] [facility] [place] [address] Occupational Therapy Professor: Amador Lopez MD Nitrite,Ur Negative Normal NEG [facility] Comment on above: Performed By: #### F EBGrace FERI #### [facility] [address] [place] [address] Occupational Therapy Professor: Amador Lopez MD PH,Ur 6.5 Normal 5.0-8.0 [facility] Comment on above: Performed By: #### F EBGrace FERI #### [facility] [address] [place] [address] Occupational Therapy Professor: Amador Lopez MD Protein Ql (U) Negative Normal NEG [facility] Comment on above: Performed By: #### F MIRTA FERI #### [facility] [employer] [address] [place] [address] Occupational Therapy Professor: Amador Lopez MD Spec. [place],Ur 1.046 High 1.005-1.030 [facility] Comment on above: Performed By: #### F EBGrace FERI #### [facility] [employer] [address] [place] [address] Occupational Therapy Professor: Amador Lopez MD Urobilinogen,Ur Normal Normal NORM [facility] Comment on above: Performed By: #### F EBGrace FERI #### [facility] [address] [place] [address] Occupational Therapy Professor: Amador Lopez MD Venous Blood Gaseson 022 Body Temp. 37.0 Normal [facility] Comment on above: Performed By: #### B MPX #### [facility] [address] [place] [address] Occupational Therapy Professor: Amador Lopez MD Carboxy Hgb 1.9 % Normal 0-5 [facility] Comment on above: Result Comment: Reference Range: Non-Smokers 0-2% Average Smoker 2-4% Heavy Smoker <10% Performed By: #### B MPX #### [address] [address] Occupational Therapy Professor: Amador Lopez MD FIO2 INFORMATION NOT PROVIDED Normal [facility] Comment on above: Performed By: #### B MPX #### [address] [address] Occupational Therapy Professor: Amador Lopez MD HCO3 (Bld) [Moles/Vol] 22.3 mmol/L Low 24-30 [facility] Comment on above: Performed By: #### B MPX #### [address] [address] Occupational Therapy Professor: Amador Lopez MD Negative Base Excess 1.7 mmol/L Normal 0.0-2.0 [facility] Comment on above: Performed By: #### B MPX #### [address] [address] Occupational Therapy Professor: Amador Lopez MD Oxygen saturation in Blood 96.3 % High 60.0-85.0 [facility] Comment on above: Performed By: #### B MPX #### [address] [address] Occupational Therapy Professor: Amador Lopez MD pCO2 37.2 mm Hg Low 39-55 [facility] Comment on above: Performed By: #### B MPX #### [address] [address] Occupational Therapy Professor: Amador Lopez MD pH (Bld) 7.395 [pH] Normal 7.320-7.420 [facility] Comment on above: Performed By: #### B MPX #### [address] [phone] Occupational Therapy Professor: Amador Lopez MD pO2 85.9 mm Hg High 30-50 [facility] Comment on above: Performed By: #### B MPX #### [facility] [address] [place], [place] [phone] Occupational Therapy Professor: Amador Lopez MD C-reactive proteinon 022 CRP [Mass/Vol] mg/L 0 - 5 mg/L [facility] C-reactive proteinon 022 CRP [Mass/Vol] 12.9 mg/L High 0 - 5 mg/L [facility] Interpretation and review of laboratory results Abnormal [facility] C-reactive proteinon 022 CRP [Mass/Vol] 20 mg/L High 0 - 5 mg/L [facility] Interpretation and review of laboratory results Abnormal [facility] C-reactive proteinon 022 CRP [Mass/Vol] 33.5 mg/L High 0 - 5 mg/L [facility] Interpretation and review of laboratory results Abnormal [facility] C-Reactive Proteinon 022 CRP [Mass/Vol] 37.6 mg/L High 0.0-5.0 [facility] Comment on above: Performed By: #### S ED, PRCAL, CDP, BMPX #### [facility] [address] [place], [place] [id number] Occupational Therapy Professor: Amador Lopez MD C-reactive proteinon 022 CRP [Mass/Vol] 37.6 mg/L High 0 - 5 mg/L [facility] Interpretation and review of laboratory results Abnormal [facility] Basic Metabolic Panelon 06-14 Anion gap [Moles/Vol] 9 mmol/L 9 - 17 mmol/L [facility] Calcium [Mass/Vol] 9.1 mg/dL 8.6 - 10. 4 mg/dL [facility] Chloride [Moles/Vol] 97 mmol/L Low 98 - 10 7 mmol/L [facility] CO2 [Moles/Vol] 23 mmol/L 20 - 31 mmol/L [facility] Creatinine [Mass/Vol] 0.67 mg/dL Low 0.7 - 1.2 mg/dL [facility] GFR >60 60 - PI NF mL/min [facility] GFR Non- >60 60 - PINF mL/min [facility] Glucose [Mass/Vol] 95 mg/dL 70 - 99 mg/dL [facility] Interpretation and review of laboratory results Abnormal [place] [facility] Potassium [Moles/Vol] 4.1 mmol/L 3.7 - 5.3 mmol/L [facility] Sodium [Moles/Vol] 129 mmol/L Low 135 - 144 mmol/L [facility] Urea nitrogen (BldV) [Mass/Vol] 11 mg/dL 8 - 23 mg/dL [facility] Urea nitrogen/Creatinine (Bld) [Mass ratio] 16 9 - 20 [facility] CBC with Auto Differentialon 07-04-2022 Absolute Eos # 0.05 [place] [facility] Absolute Immature Granulocyte 0.21 [facility] Absolute Lymph # 1.40 [facility] Absolute [place] # 0.92 [facility] Basophils (Bld) [#/Vol] 0.05 10*3/uL [facility] Basophils/100 WBC (Bld) 1 % 0 - 2 % B [facility] Eosinophils/100 WBC (Bld) 1 % 1 - 4 % [facility] Hematocrit (Bld) [Volume fraction] 39.5 % Low 40.7 - 50.3 % [facility] Hemoglobin (Bld) [Mass/Vol] 13.0 g/dL 13 - 17 g/dL [facility] Immature granulocytes/100 WBC (Bld) 2 % High 0 [facility] Interpretation and review of laboratory results Abnormal [place] [facility] Lymphocytes/100 WBC (Bld) 15 % Low 24 - 43 % [facility] MCH (RBC) [Entitic mass] 32.2 pg 25. 2 - 33.5 pg [facility] MCHC (RBC) [Mass/Vol] 32.9 g/dL 28.4 - 34.8 g/dL [facility] MCV (RBC) [Entitic vol] 97.8 fL 82.6 - 102.9 fL [facility] Monocytes/100 WBC (Bld) 10 % 3 - 12 % B [facility] NRBC Automated 0.0 0.0 per 100 WBC [facility] Platelet distribution width (Bld) [Ratio] 11.4 % Low 11.8 - 14.4 % [facility] Platelet mean volume (Bld) [Entitic vol] 9.4 fL 8.1 - 13.5 fL [facility] Platelets (Bld) [#/Vol] 329 10*3/uL [facility] RBC (Bld) [#/Vol] 4.04 10*6/uL Low 4.21 - 5.7 7 m/uL [facility] Segmented neutrophils/100 WBC (Bld) 71 % High 36 - 65 % [facility] Segs Absolute 6.69 [facility] WBC (Bld) [#/Vol] 9.3 10*3/uL [facility] CT ANKLE LEFT W CONTRASTon 0 07-04-2022 1. Findings above remain concerning for the possibility of infection/septic subtalar and tibiotalar joints and associated peroneal and flexor infectious tenosynovitis. 2. Moderate to severe soft tissue edema and fluid about the ankle likely cellulitis. Underlying myositis not excluded. 3. Diffuse osteopenia. Sequela of remote trauma. Mild diffuse degenerative changes as above. 4. No aggressive osseous destruction. No acute osseous abnormality evident. [facility] RIS CONSOLIDATED EXAMINATION: CT OF THE LEFT ANKLE WITH CONTRAST 07/04/2022 2:02 pm TECHNIQUE: CT of the left ankle was performed with the administration of intravenous contrast. Multiplanar reformatted images are provided for review. Automated exposure control, iterative reconstruction, and/or weight based adjustment of the mA/kV was utilized to reduce the radiation dose to as low as reasonably achievable. COMPARISON: Left ankle radiographs from 07/04/2022 HISTORY ORDERING SYSTEM PROVIDED HISTORY: post op pain TECHNOLOGIST PROVIDED HISTORY: post op pain Decision Support Exception - unselect if not a suspected or confirmed emergency medical condition->Emergenc y Medical Condition (MA) 66-year-old male with postop pain FINDINGS: Bones: Diffuse osteopenia. Irregularity of the inferior aspect of the lateral malleolus and medial malleolus with tiny remote avulsion fracture fragments consistent with remote trauma. No aggressive osseous destruction. No acute fracture or dislocation evident. Soft Tissue: Moderate to severe soft tissue edema and fluid about the ankle. Visualized Achilles, peroneal, flexor, and extensor tendons are seen in their expected locations. Atherosclerotic calcification of the vasculature. Pleural fluid enhancing fluid surrounding the flexor tendons just beyond the master knot of John. Peripherally enhancing fluid which is seen in association with the peroneal tendons. Joint: Somewhat thick peripherally enhancing synovium at the tibiotalar and subtalar joints with moderate associated tibiotalar and subtalar effusions. Mild degenerative changes of the midfoot and TMT joints. [facility] Marquis Sanders MD - 07/04/2022 EXAMINATION: CT OF THE LEFT ANKLE WITH CONTRAST 07/04/2022 2:02 pm TECHNIQUE: CT of the left ankle was performed with the administration of intravenous contrast. Multiplanar reformatted images are provided for review. Automated exposure control, iterative reconstruction, and/or weight based adjustment of the mA/kV was utilized to reduce the radiation dose to as low as reasonably achievable. COMPARISON: Left ankle radiographs from 07/04/2022 HISTORY ORDERING SYSTEM PROVIDED HISTORY: post op pain TECHNOLOGIST PROVIDED HISTORY: post op pain Decision Support Exception - unselect if not a suspected or confirmed emergency medical condition->Emergenc y Medical Condition (MA) 66-year-old male with postop pain FINDINGS: Bones: Diffuse osteopenia. Irregularity of the inferior aspect of the lateral malleolus and medial malleolus with tiny remote avulsion fracture fragments consistent with remote trauma. No aggressive osseous destruction. No acute fracture or dislocation evident. Soft Tissue: Moderate to severe soft tissue edema and fluid about the ankle. Visualized Achilles, peroneal, flexor, and extensor tendons are seen in their expected locations. Atherosclerotic calcification of the vasculature. Pleural fluid enhancing fluid surrounding the flexor tendons just beyond the master knot of John. Peripherally enhancing fluid which is seen in association with the peroneal tendons. Joint: Somewhat thick peripherally enhancing synovium at the tibiotalar and subtalar joints with moderate associated tibiotalar and subtalar effusions. Mild degenerative changes of the midfoot and TMT joints. IMPRESSION: 1. Findings above remain concerning for the possibility of infection/septic subtalar and tibiotalar joints and associated peroneal and flexor infectious tenosynovitis. 2. Moderate to severe soft tissue edema and fluid about the ankle likely cellulitis. Underlying myositis not excluded. 3. Diffuse osteopenia. Sequela of remote trauma. Mild diffuse degenerative changes as above. 4. No aggressive osseous destruction. No acute osseous abnormality evident. [facility] Work Phone: Radiology Study observation (narrative) [employer] Work Phone: CT ANKLE LEFT W CONTRASTOrde red By: Marquis Masters on 07-04-2022 [facility] Work Phone: Laboratory - Chemistry and C hemistry - challengeon 07-04-2022 GFR/1.73 sq M.predicted MDRD (S/P/Bld) [Vol rate/Area] [facility] Comment on above: Average GFR for 60-6 9 years old: 85 mL/min/1.73sq m Chronic Kidney Disease: <60 mL/min/1.73sq m Kidney failure: <15 mL/min/1.73sq m eGFR calculated using average adult body mass. Additional eGFR calculator available at: http://www.StubHub.BioTeSys/multiple_crcl_2011.htm Stage 1: Some kidney damage normal GFR Stage 2: Mild kidney damage GFR 60-89 Stage 3: Moderate kidney damage GFR 30-59 Stage 4: Severe kidney damage GFR 15-29 Stage 5: Severe kidney damage GFR <15 ESRD - chronic treatment by dialysis or transplant Lactic Acidon 07-04-2022 Lactate [Moles/Vol] 1 mmol/L 0.5 - 2. 2 mmol/L [facility] [employer] XR ANKLE LEFT (MIN 3 VIEWS)o n 07-04-2022 EXAMINATION: THREE XRAY VIEWS OF THE LEFT ANKLE 07/04/2022 12:12 pm COMPARISON: 06/24/2022 HISTORY: ORDERING SYSTEM PROVIDED HISTORY: pain TECHNOLOGIST PROVIDED HISTORY: pain FINDINGS: Overlying splint material degrades osseous detail. No displaced fracture demonstrated on this exam. No malalignment. Mild soft tissue swelling is noted. [facility] RIS Jaren Gomez MD - 07/04/2022 EXAMINATION: THREE XRAY VIEWS OF THE LEFT ANKLE 07/04/2022 12:12 pm COMPARISON: 06/24/2022 HISTORY: ORDERING SYSTEM PROVIDED HISTORY: pain TECHNOLOGIST PROVIDED HISTORY: pain FINDINGS: Overlying splint material degrades osseous detail. No displaced fracture demonstrated on this exam. No malalignment. Mild soft tissue swelling is noted. IMPRESSION: Splint material degrades osseous evaluation. No displaced fracture or malalignment identified. [employer] Phone: Radiology Study observation (narrative) bttn Phone: XR ANKLE LEFT (MIN 3 VIEWS)O rdered By: Jaren Michel on 07-04-2022 [employer] Phone: Crystals, Fluidson 2 Crystals,Fluid Negative Normal NEG [facility] Comment on above: Result Comment: NO C RYSTALS SEEN Performed By: #### F FLORINA KIRBY #### [facility] [address] [place], [place] [id number] Occupational Therapy Professor: Amador Lopez MD Fluid Cell Count and Diffon 06-27-2022 Other Cells MONOCYTES Normal [facility] Comment on above: Result Comment: The reference range and other method performance specifications have not been established for this body fluid. The test result must be integrated into the clinical context for interpretation. Performed By: #### F EBFLORINA Edwards #### [facility] [address] [place], [place] [phone] Occupational Therapy Professor: Amador Lopez MD Basic Metab w/rfx MGon 06-26 (cont.) Normal [facility] Comment on above: Result Comment: Aver age GFR for 60-69 years old: 85 mL/min/1.73sq m Chronic Kidney Disease: <60 mL/min/1.73sq m Kidney failure: <15 mL/min/1.73sq m eGFR calculated using average adult body mass. Additional eGFR calculator available at: http://www.Appiphany/multiple_crcl_2012.htm Performed By: #### B MPX #### [facility] [employer] [address] [place] [address] Occupational Therapy Professor: Amador Lopez MD Anion gap [Moles/Vol] 8 mmol/L Low 9-17 [facility] Comment on above: Performed By: #### B MPX #### [facility] [employer] [address] [place] [address] Occupational Therapy Professor: Amador Lopez MD Calcium [Mass/Vol] 8.0 mg/dL Low 8.6-10.4 [facility] Comment on above: Performed By: #### B MPX #### [facility] [employer] [address] [place] [address] Occupational Therapy Professor: Amador Lopez MD Chloride [Moles/Vol] 100 mmol/L Normal 98-107 [facility] Comment on above: Performed By: #### B MPX #### [facility] [employer] [address] [place] [address] Occupational Therapy Professor: Amador Lopez MD CO2 [Moles/Vol] 21 mmol/L Normal 20-31 [facility] Comment on above: Performed By: #### B MPX #### [facility] [employer] [address] [place] [address] Occupational Therapy Professor: Amador Lopez MD Creatinine [Mass/Vol] 0.50 mg/dL Low 0.70-1.20 [facility] Comment on above: Performed By: #### B MPX #### [address] [address] Occupational Therapy Professor: Amador Lopez MD GFR, Amer >60 Normal >60 [facility] Comment on above: Performed By: #### B MPX #### [address] [address] Occupational Therapy Professor: Amador Lopez MD GFR,non Amer >60 Normal >60 [facility] Comment on above: Performed By: #### B MPX #### [facility] [employer] [address] [place] [address] Occupational Therapy Professor: Amador Lopez MD Glucose [Mass/Vol] 85 mg/dL Normal 70-99 [facility] Comment on above: Performed By: #### B MPX #### [address] [address] Occupational Therapy Professor: Amador Lopez MD Potassium [Moles/Vol] 4.4 mmol/L Normal 3.7-5.3 [facility] Comment on above: Performed By: #### B MPX #### [address] [address] Occupational Therapy Professor: Amador Lopez MD Sodium [Moles/Vol] 129 mmol/L Low 135-144 [facility] Comment on above: Performed By: #### B MPX #### [address] [address] Occupational Therapy Professor: Amador Lopez MD Urea nitrogen [Mass/Vol] 18 mg/dL Normal 8-23 [facility] Comment on above: Performed By: #### B MPX #### [address] [address] Occupational Therapy Professor: Amador Lopez MD Basic Metabolic Panel w/ Ref rashawn to MGon 06-26-2022 Anion gap [Moles/Vol] 8 mmol/L Low 9 - 17 mmol/L [facility] Calcium [Mass/Vol] 8.0 mg/dL Low 8.6 - 10. 4 mg/dL [facility] Chloride [Moles/Vol] 100 mmol/L 98 - 10 7 mmol/L [facility] CO2 [Moles/Vol] 21 mmol/L 20 - 31 mmol/L [facility] Creatinine [Mass/Vol] 0.5 mg/dL Low 0.7 - 1.2 mg/dL [facility] GFR >60 60 - PI NF mL/min [facility] GFR Non- >60 60 - PINF mL/min [facility] GFR/1.73 sq M.predicted MDRD (S/P/Bld) [Vol rate/Area] [facility] Comment on above: Average GFR for 60-6 9 years old: 85 mL/min/1.73sq m Chronic Kidney Disease: <60 mL/min/1.73sq m Kidney failure: <15 mL/min/1.73sq m eGFR calculated using average adult body mass. Additional eGFR calculator available at: http://www.Appiphany/multiple_crcl_2012.htm Glucose [Mass/Vol] 85 mg/dL 70 - 99 mg/dL [facility] Interpretation and review of laboratory results Abnormal [facility] Potassium [Moles/Vol] 4.4 mmol/L 3.7 - 5.3 mmol/L [facility] Sodium [Moles/Vol] 129 mmol/L Low 135 - 144 mmol/L [facility] Urea nitrogen (BldV) [Mass/Vol] 18 mg/dL 8 - 23 mg/dL [facility] Cult,Aerobe/Anaerobeon 06-26 Cult,Aerobe/Anaerobe Specimen Description .BURSA Direct Exam MANY NEUTROPHILS FEW GRAM POSITIVE COCCI IN CLUSTERS Culture STAPHYLOCOCCUS AUREUS HEAVY GROWTH This isolate is methicillin susceptible. No anaerobic organisms isolated at 5 days. Report Status FINAL 06/29/2022 SUSCEPTIBILITY Organism SAUR MSSA Method CARYL Penicillin >=0.5 RESISTANT Clindamycin <=0.25 RESISTANT Erythromycin 4 RESISTANT Gentamicin <=0.5 SUSCEPTIBLE Gentamicin is used only in combination with other active agents that test susceptible. Induced Clind Resist POSITIVE Levofloxacin <=0.12 SUSCEPTIBLE Oxacillin 0.5 SUSCEPTIBLE Tetracycline <=1 SUSCEPTIBLE Trimethoprim/Sulfa <=10 SUSCEPTIBLE Susceptible [facility] Comment on above: Performed By: #### A ANC #### [address] [phone] Occupational Therapy Professor: Amador Lopez MD Cult,Aerobe/Anaerobe Specimen Description .ANKLE Direct Exam MANY NEUTROPHILS RARE GRAM POSITIVE COCCI IN CLUSTERS Culture STAPHYLOCOCCUS AUREUS HEAVY GROWTH This isolate is methicillin susceptible. No anaerobic organisms isolated at 5 days. Report Status FINAL 06/29/2022 SUSCEPTIBILITY Organism SAUR MSSA Method CARYL Penicillin >=0.5 RESISTANT Clindamycin <=0.25 RESISTANT Erythromycin 4 RESISTANT Gentamicin <=0.5 SUSCEPTIBLE Gentamicin is used only in combination with other active agents that test susceptible. Induced Clind Resist POSITIVE Levofloxacin <=0.12 SUSCEPTIBLE Oxacillin 0.5 SUSCEPTIBLE Tetracycline <=1 SUSCEPTIBLE Trimethoprim/Sulfa <=10 SUSCEPTIBLE Susceptible [facility] Comment on above: Performed By: #### A ANC #### [facility] [employer] [address] [place] [phone] Occupational Therapy Professor: Amador Lopez MD Cult,Bloodon 06-26-2022 Cult,Blood Specimen Description .BLOOD Special Requests l hand 6ml Culture POSITIVE Blood Culture DIRECT GRAM STAIN FROM BOTTLE: GRAM POSITIVE COCCI IN CLUSTERS Staphylococcus aureus Detected: mecA/C and MREJ Not Detected Methodology- Polymerase Chain Reaction (PCR) STAPHYLOCOCCUS AUREUS This isolate is methicillin susceptible. (NOTE) Direct Gram Stain from bottle and Polymerase Chain Reaction (PCR) results called to and read back by:SEJAL Lai 06/25/22 AT 0617 Report Status FINAL 06/26/2022 SUSCEPTIBILITY Organism SAUR MSSA Method CARYL Penicillin >=0.5 RESISTANT Clindamycin <=0.25 RESISTANT Erythromycin 4 RESISTANT Gentamicin <=0.5 SUSCEPTIBLE Gentamicin is used only in combination with other active agents that test susceptible. Induced Clind Resist POSITIVE Levofloxacin 0.25 SUSCEPTIBLE Oxacillin 1 SUSCEPTIBLE Tetracycline <=1 SUSCEPTIBLE Trimethoprim/Sulfa <=10 SUSCEPTIBLE Susceptible [facility] Comment on above: Performed By: #### A ANC #### [place] [phone] Occupational Therapy Professor: Amador Lopez MD Culture, Blood 1on 2 Bacteria identified Cx Nom (Unsp spec) Positive Abnormal [facility] Bacteria identified Cx Nom (Unsp spec) DIRECT GRAM STAIN FROM BOTTLE: GRAM POSITIVE COCCI IN CLUSTERS [facility] Bacteria identified Cx Nom (Unsp spec) Staphylococcus aureus Detected: mecA/C and MREJ Not Detected Methodology- Polymerase Chain Reaction (PCR) [facility] Bacteria identified Cx Nom (Unsp spec) STAPHYLOCOCCUS AUREUS This isolate is methicillin susceptible. Abnormal [facility] Bacteria identified Cx Nom (Unsp spec) (NOTE) Direct Gram Stain from bottle and Polymerase Chain Reaction (PCR) results called to and read back by:SEJAL Lai 06/25/22 AT 0617 [facility] Interpretation and review of laboratory results Abnormal [facility] Special Requests l hand 6ml [facility] Specimen Description .BLOOD [facility] Basic Metab w/rfx MGon 06-25 (cont.) Normal [facility] Comment on above: Result Comment: Aver age GFR for 60-69 years old: 85 mL/min/1.73sq m Chronic Kidney Disease: <60 mL/min/1.73sq m Kidney failure: <15 mL/min/1.73sq m eGFR calculated using average adult body mass. Additional eGFR calculator available at: http://www.StubHub.BioTeSys/multiple_crcl_2012.htm Performed By: #### A ANC #### [facility] [place], [place] [phone] Occupational Therapy Professor: Amador Lopez MD Anion gap [Moles/Vol] 10 mmol/L Normal 9-17 [facility] Comment on above: Performed By: #### A ANC #### [facility] [address] [place], [place] [phone] Occupational Therapy Professor: Amador Lopez MD Calcium [Mass/Vol] 7.8 mg/dL Low 8.6-10.4 [facility] Comment on above: Performed By: #### A ANC #### [address] [address] Occupational Therapy Professor: Amador Lopez MD Chloride [Moles/Vol] 95 mmol/L Low 98-107 [facility] Comment on above: Performed By: #### A ANC #### [address] [address] Occupational Therapy Professor: Amador Lopez MD CO2 [Moles/Vol] 21 mmol/L Normal 20-31 [facility] Comment on above: Performed By: #### A ANC #### [address] [address] Occupational Therapy Professor: Amador Lopez MD Creatinine [Mass/Vol] 0.54 mg/dL Low 0.70-1.20 [facility] Comment on above: Performed By: #### A ANC #### [address] [address] Occupational Therapy Professor: Amador Lopez MD GFR, Amer >60 Normal >60 [facility] Comment on above: Performed By: #### A ANC #### [address] [address] Occupational Therapy Professor: Amador Lopez MD GFR,non Amer >60 Normal >60 [facility] Comment on above: Performed By: #### A ANC #### [address] [address] Occupational Therapy Professor: Amador Lopez MD Glucose [Mass/Vol] 137 mg/dL High 70-99 [facility] Comment on above: Performed By: #### A ANC #### [address] [address] Occupational Therapy Professor: Amador Lopez MD Potassium [Moles/Vol] 4.1 mmol/L Normal 3.7-5.3 [facility] Comment on above: Performed By: #### A ANC #### [facility] [address] [place], [place] [phone] Occupational Therapy Professor: Amador Lopez MD Sodium [Moles/Vol] 126 mmol/L Low 135-144 [facility] Comment on above: Performed By: #### A ANC #### [facility] [address] [place], [place] [phone] Occupational Therapy Professor: Amador Lopez MD Urea nitrogen [Mass/Vol] 17 mg/dL Normal 8-23 [facility] Comment on above: Performed By: #### A ANC #### [facility] [address] [place], [place] [phone] Occupational Therapy Professor: Amador Lopez MD Basic Metabolic Panel w/ Ref rashawn to MGon 06-25-2022 Anion gap [Moles/Vol] 10 mmol/L 9 - 17 mmol/L [facility] Calcium [Mass/Vol] 7.8 mg/dL Low 8.6 - 10. 4 mg/dL [employer] [facility] Chloride [Moles/Vol] 95 mmol/L Low 98 - 10 7 mmol/L [employer] [facility] CO2 [Moles/Vol] 21 mmol/L 20 - 31 mmol/L [employer] [facility] Creatinine [Mass/Vol] 0.54 mg/dL Low 0.7 - 1.2 mg/dL [facility] GFR >60 60 - PI NF mL/min [facility] GFR Non- >60 60 - PINF mL/min [facility] GFR/1.73 sq M.predicted MDRD (S/P/Bld) [Vol rate/Area] [facility] Comment on above: Average GFR for 60-6 9 years old: 85 mL/min/1.73sq m Chronic Kidney Disease: <60 mL/min/1.73sq m Kidney failure: <15 mL/min/1.73sq m eGFR calculated using average adult body mass. Additional eGFR calculator available at: http://www.StubHub.com/multiple_crcl_2012.htm Glucose [Mass/Vol] 137 mg/dL High 70 - 99 mg/dL [facility] Potassium [Moles/Vol] 4.1 mmol/L 3.7 - 5.3 mmol/L [facility] Sodium [Moles/Vol] 126 mmol/L Low 135 - 144 mmol/L [facility] Urea nitrogen (BldV) [Mass/Vol] 17 mg/dL 8 - 23 mg/dL [facility] C-Reactive Proteinon 022 CRP [Mass/Vol] 149.4 mg/L High 0.0-5.0 [facility] Comment on above: Performed By: #### A ANC #### [facility] [place], [place] [phone] Occupational Therapy Professor: Amador Lopez MD CRP [Mass/Vol] 149.4 mg/L High 0 - 5 mg/L [facility] No Panel Informationon 06-25 Interpretation and review of laboratory results Abnormal [facility] Vancomycin Level, Randomon 0 06-25-2022 Vancomycin Rm 24.9 ug/mL [facility] Comment on above: Higher trough serum vancomycin concentrations of 15-20 ug/mL are recommended for complicated infections such as bacteremia, endocarditis, osteomyelitis, meningitis, and hospital acquired pneumonia. [facility] Vancomycin,Randomon 06-25-20 22 Vancomycin 24.9 ug/mL Normal [facility] Comment on above: Result Comment: High er trough serum vancomycin concentrations of 15-20 ug/mL are recommended for complicated infections such as bacteremia, endocarditis, osteomyelitis, meningitis, and hospital acquired pneumonia. Performed By: #### A ANC #### [facility] [address] [place] [address] Occupational Therapy Professor: Amaodr Lopez MD APTTon 06-24-2022 aPTT Coag (Bld) [Time] 28.2 s Normal 20.5-30.5 [facility] Comment on above: Result Comment: IV Heparin Therapy Range: 48.6-77.8 Performed By: #### A ANC #### [facility] [place] [address] Occupational Therapy Professor: Amador Lopez MD aPTT Coag (Bld) [Time] 28.2 s [facility] Comment on above: IV Heparin Therapy Range: 48.6-77.8 Basic Metab w/rfx MGon 06-24 (cont.) Normal [facility] Comment on above: Result Comment: Aver age GFR for 60-69 years old: 85 mL/min/1.73sq m Chronic Kidney Disease: <60 mL/min/1.73sq m Kidney failure: <15 mL/min/1.73sq m eGFR calculated using average adult body mass. Additional eGFR calculator available at: http://www.Appiphany/multiple_crcl_2012.htm Performed By: #### A ANC #### [address] [address] Occupational Therapy Professor: Amador Lopez MD Anion gap [Moles/Vol] 12 mmol/L Normal 9-17 [facility] Comment on above: Performed By: #### A ANC #### [address] [address] Occupational Therapy Professor: Amador Lopez MD Calcium [Mass/Vol] 8.2 mg/dL Low 8.6-10.4 [facility] Comment on above: Performed By: #### A ANC #### [address] [address] Occupational Therapy Professor: Amador Lopez MD Chloride [Moles/Vol] 93 mmol/L Low 98-107 [facility] Comment on above: Performed By: #### A ANC #### [address] [address] Occupational Therapy Professor: Amdaor Lopez MD CO2 [Moles/Vol] 21 mmol/L Normal 20-31 [facility] Comment on above: Performed By: #### A ANC #### [address] [address] Occupational Therapy Professor: Amador Lopez MD Creatinine [Mass/Vol] 0.74 mg/dL Normal 0.70-1.20 [facility] Comment on above: Performed By: #### A ANC #### [address] [address] Occupational Therapy Professor: Amador Lopez MD GFR, Amer >60 Normal >60 [facility] Comment on above: Performed By: #### A ANC #### [address] [address] Occupational Therapy Professor: Amador Lopez MD GFR,non Amer >60 Normal >60 [facility] Comment on above: Performed By: #### A ANC #### [address] [address] Occupational Therapy Professor: Amador Lopez MD Glucose [Mass/Vol] 88 mg/dL Normal 70-99 [facility] Comment on above: Performed By: #### A ANC #### [address] [address] Occupational Therapy Professor: Amador Lopez MD Potassium [Moles/Vol] 4.6 mmol/L Normal 3.7-5.3 [facility] Comment on above: Performed By: #### A ANC #### [address] [address] Occupational Therapy Professor: Amador Lopez MD Sodium [Moles/Vol] 126 mmol/L Low 135-144 [facility] Comment on above: Performed By: #### A ANC #### [address] [address] Occupational Therapy Professor: Amador Lopez MD Urea nitrogen [Mass/Vol] 19 mg/dL Normal 8-23 [facility] Comment on above: Performed By: #### A ANC #### [address] [address] Occupational Therapy Professor: Amador Lopez MD Basic Metabolic Panel w/ Ref rashawn to MGon 06-24-2022 Anion gap [Moles/Vol] 12 mmol/L 9 - 17 mmol/L [facility] Calcium [Mass/Vol] 8.2 mg/dL Low 8.6 - 10. 4 mg/dL [facility] Chloride [Moles/Vol] 93 mmol/L Low 98 - 10 7 mmol/L [facility] CO2 [Moles/Vol] 21 mmol/L 20 - 31 mmol/L [facility] Creatinine [Mass/Vol] 0.74 mg/dL 0.7 - 1.2 mg/dL [facility] GFR >60 60 - PI NF mL/min [facility] GFR Non- >60 60 - PINF mL/min [facility] GFR/1.73 sq M.predicted MDRD (S/P/Bld) [Vol rate/Area] [facility] Comment on above: Average GFR for 60-6 9 years old: 85 mL/min/1.73sq m Chronic Kidney Disease: <60 mL/min/1.73sq m Kidney failure: <15 mL/min/1.73sq m eGFR calculated using average adult body mass. Additional eGFR calculator available at: http://www.Appiphany/multiple_crcl_2012.htm Glucose [Mass/Vol] 88 mg/dL 70 - 99 mg/dL [facility] Potassium [Moles/Vol] 4.6 mmol/L 3.7 - 5.3 mmol/L [facility] Sodium [Moles/Vol] 126 mmol/L Low 135 - 144 mmol/L [facility] Urea nitrogen (BldV) [Mass/Vol] 19 mg/dL 8 - 23 mg/dL [facility] C-Reactive Proteinon 022 CRP [Mass/Vol] 143.4 mg/L High 0.0-5.0 [facility] Comment on above: Performed By: #### A ANC #### [facility] [place] [address] Occupational Therapy Professor: Amador Lopez MD CRP [Mass/Vol] 143.4 mg/L High 0 - 5 mg/L [facility] CBC with Auto Differentialon 06-24-2022 Absolute Eos # 0.03 [place] [facility] Absolute Immature Granulocyte 0.[address] [facility] Absolute Lymph # 0.70 Low [facility] Absolute [place] # 1.32 High [facility] Basophils (Bld) [#/Vol] 0.10 10*3/uL [facility] Basophils/100 WBC (Bld) 1 % 0 - 2 % [facility] Eosinophils/100 WBC (Bld) 0 % Low 1 - 4 % [facility] Hematocrit (Bld) [Volume fraction] 43.1 % 40.7 - 50.3 % [facility] Hemoglobin (Bld) [Mass/Vol] 15.3 g/dL 13 - 17 g/dL [facility] Immature granulocytes/100 WBC (Bld) 3 % High 0 [facility] Interpretation and review of laboratory results Abnormal [facility] Lymphocytes/100 WBC (Bld) 6 % Low 24 - 43 % [facility] MCH (RBC) [Entitic mass] 33.3 pg 25. 2 - 33.5 pg [facility] MCHC (RBC) [Mass/Vol] 35.5 g/dL High 28.4 - 34.8 g/dL [facility] MCV (RBC) [Entitic vol] 93.9 fL 82.6 - 102.9 fL [facility] Monocytes/100 WBC (Bld) 11 % 3 - 12 % [facility] NRBC Automated 0.0 0.0 per 100 WBC [facility] Platelet distribution width (Bld) [Ratio] 12.0 % 11.8 - 14.4 % [facility] Platelet mean volume (Bld) [Entitic vol] 10.6 fL 8.1 - 13.5 fL [facility] Platelets (Bld) [#/Vol] 200 10*3/uL [facility] RBC (Bld) [#/Vol] 4.59 10*6/uL 4.21 - 5.7 7 m/uL [facility] Segmented neutrophils/100 WBC (Bld) 79 % High 36 - 65 % [facility] Segs Absolute 9.99 High [facility] WBC (Bld) [#/Vol] 12.6 10*3/uL High [facility] CBC with Diffon 06-24-2022 Abs. Basophil 0.10 k/uL Normal 0.00-0.20 [facility] Comment on above: Performed By: #### A ANC #### [address] [address] Occupational Therapy Professor: Amador Lopez MD Abs.Imm.Granulocyte 0.43 k/uL High 0.00-0.30 [facility] Comment on above: Performed By: #### A ANC #### [place] [address] Occupational Therapy Professor: Amador Lopez MD Abs.Neutrophil (Seg) 9.99 k/uL High 1.50-8.10 [facility] Comment on above: Performed By: #### A ANC #### [address] [address] Occupational Therapy Professor: Amador Lopez MD Basophils/100 WBC (Bld) 1 % Normal 0-2 [facility] Comment on above: Performed By: #### A ANC #### [address] [address] Occupational Therapy Professor: Amador Lopez MD Eosinophils (Bld) [#/Vol] 0.03 10*3/uL Normal 0.00-0.4 4 [facility] Comment on above: Performed By: #### A ANC #### [address] [address] Occupational Therapy Professor: Amador Lopez MD Eosinophils/100 WBC (Bld) 0 % Low 1-4 [facility] Comment on above: Performed By: #### A ANC #### [address] [address] Occupational Therapy Professor: Amador Lopez MD Erythrocyte distribution width (RBC) [Ratio] 12.0 % Normal 11.8-14.4 [facility] Comment on above: Performed By: #### A ANC #### [address] [address] Occupational Therapy Professor: Amador Lopez MD Hematocrit (Bld) [Volume fraction] 43.1 % Normal 40.7-50.3 [facility] Comment on above: Performed By: #### A ANC #### [address] [address] Occupational Therapy Professor: Amador Lopez MD Hemoglobin (Bld) [Mass/Vol] 15.3 g/dL Normal 13.0-17.0 [facility] Comment on above: Performed By: #### A ANC #### [address] [address] Occupational Therapy Professor: Amador Lopez MD Immature granulocytes/100 WBC (Bld) 3 % High 0 [facility] Comment on above: Performed By: #### A ANC #### [address] [address] Occupational Therapy Professor: Amador Lopez MD Lymphocytes (Bld) [#/Vol] 0.70 10*3/uL Low 1.10-3.7 0 [facility] Comment on above: Performed By: #### A ANC #### [address] [address] Occupational Therapy Professor: Amador Lopez MD Lymphocytes/100 WBC (Bld) 6 % Low 24-43 [facility] Comment on above: Performed By: #### A ANC #### [address] [address] Occupational Therapy Professor: Amador Lopez MD MCH (RBC) [Entitic mass] 33.3 pg Normal 25.2-33.5 [facility] Comment on above: Performed By: #### A ANC #### [address] [address] Occupational Therapy Professor: Amador Lopez MD MCHC (RBC) [Mass/Vol] 35.5 g/dL High 28.4-34.8 [facility] Comment on above: Performed By: #### A ANC #### [address] [address] Occupational Therapy Professor: Amador Lopez MD MCV (RBC) [Entitic vol] 93.9 fL Normal 82.6-102.9 [facility] Comment on above: Performed By: #### A ANC #### [address] [address] Occupational Therapy Professor: Amador Lopez MD Monocytes (Bld) [#/Vol] 1.32 10*3/uL High 0.10-1.20 [facility] Comment on above: Performed By: #### A ANC #### [address] [address] Occupational Therapy Professor: Amador Lopez MD Monocytes/100 WBC (Bld) 11 % Normal 3-12 [facility] Comment on above: Performed By: #### A ANC #### [address] [address] Occupational Therapy Professor: Amador Lopez MD Neutrophil (Seg) 79 % High 36-65 [facility] Comment on above: Performed By: #### A ANC #### [address] [address] Occupational Therapy Professor: Amador Lopez MD NRBC Automated 0.0 per 100 WBC Normal 0.0 [facility] Comment on above: Performed By: #### A ANC #### [address] [address] Occupational Therapy Professor: Amador Lopez MD Platelet mean volume (Bld) [Entitic vol] 10.6 fL Normal 8.1-13.5 [facility] Comment on above: Performed By: #### A ANC #### [address] [address] Occupational Therapy Professor: Amador Lopez MD Platelets (Bld) [#/Vol] 200 10*3/uL Normal 138-453 [facility] Comment on above: Performed By: #### A ANC #### [address] [address] Occupational Therapy Professor: Amador Lopez MD RBC (Bld) [#/Vol] 4.59 10*6/uL Normal 4.21-5.77 [facility] Comment on above: Performed By: #### A ANC #### [address] [address] Occupational Therapy Professor: Amador Lopez MD WBC (Bld) [#/Vol] 12.6 10*3/uL High 3.5-11.3 [facility] Comment on above: Performed By: #### A ANC #### [address] [address] Occupational Therapy Professor: Amador Lopez MD Crystals, Fluidson 2 Type of Specimen BURSA Normal [facility] Comment on above: Performed By: #### F FLORINA KIRBY #### [address] [address] Occupational Therapy Professor: Amador Lopez MD EKG 12 LeadOrdered By: Murray Corley on 06-24-2022 Atrial Rate 90 BPM [employer] [facility] [employer] Phone: P [place] 52 degrees [employer] Work Phone: P-R Interval 158 ms [facility] [employer] Work Phone: Q-T Interval 364 ms [facility] [employer] Work Phone: QRS Duration 106 ms [facility] [employer] Work Phone: QTc Calculation (Bazett) 445 ms [facility] [employer] Work Phone: R [place] 42 degrees [facility] [employer] Work Phone: T [place] 24 degrees [facility] [employer] Work Phone: Ventricular Rate 90 BPM [facility] [employer] Work Phone: [facility] [employer] Phone: EKG 12 Leadon 06-24-2022 Normal sinus rhythm Incomplete right bundle branch block Borderline ECG When compared with ECG of 24-JUN-2022 05:54, No significant change was found [facility] Murray La MD - 06/24/2022 Normal sinus rhythm Incomplete right bundle branch block Borderline ECG When compared with ECG of 24-JUN-2022 05:54, No significant change was found [facility] [employer] Work Phone: Fluid Cell Count and Diffon 06-24-2022 Lymphocytes/100 WBC (Bld) 1 % Normal [facility] Comment on above: Result Comment: The reference range and other method performance specifications have not been established for this body fluid. The test result must be integrated into the clinical context for interpretation. Performed By: #### F EBCRAVINDERI #### [employer] [address] [place] [id number] Occupational Therapy Professor: Amador Lopez MD Neutrophils/100 WBC (Bld) 96 % Normal [facility] Comment on above: Result Comment: The reference range and other method performance specifications have not been established for this body fluid. The test result must be integrated into the clinical context for interpretation. Performed By: #### F EBFLORINA Edwards #### [facility] [address] [place] [address] Occupational Therapy Professor: Amador Lopez MD RBC 182609 /mm3 Normal [facility] Comment on above: Result Comment: The reference range and other method performance specifications have not been established for this body fluid. The test result must be integrated into the clinical context for interpretation. Performed By: #### F EBC, FERI #### [facility] [address] [place] [address] Occupational Therapy Professor: Amador Lopez MD WBC 40004 /mm3 Normal [facility] Comment on above: Result Comment: The reference range and other method performance specifications have not been established for this body fluid. The test result must be integrated into the clinical context for interpretation. Performed By: #### F EBC, FERI #### [facility] [address] [place] [id number] Occupational Therapy Professor: Amador Lopez MD No Panel Informationon 06-24 Interpretation and review of laboratory results Abnormal [facility] [employer] [facility] Radiology Study observation (narrative) [facility] Work Phone: OPERATIVE REPORTon 2 OPERATIVE REPORT [address] [address] OPERATIVE REPORT PATIENT NAME: PRESTON CARRASQUILLO : 1955 MED REC NO: [id number] ROOM: 0238 ACCOUNT NO: [id number] ADMIT DATE: 06/24/2022 PROVIDER: Pardeep Infante DATE OF PROCEDURE: 06/24/2022 PREOPERATIVE DIAGNOSES: 1. Left medial ankle tendon sheath abscess. 2. Left ankle septic arthritis. POSTOPERATIVE DIAGNOSES: 1. Left medial ankle tendon sheath abscess. 2. Left ankle septic arthritis. 3. Posterior tibialis tendon complete rupture. PROCEDURES: 1. Debridement of left medial ankle 16 x 5 cm, CPT 34924 and 57616, x3. 2. Left ankle arthrotomy and irrigation, CPT 42026. ATTENDING SURGEON: Pardeep Infante DO ASSISTANTS: 1. Christophe Nguyen DO, PGY-5 2. Dany Mir, PGY-2 ANESTHESIA: General. ESTIMATED BLOOD LOSS: 10 mL. IV FLUIDS: 1000 mL of crystalloid. COMPLICATIONS: None. SPECIMENS: Swabs taken from left medial ankle sent for Gram stain and culture. IMPLANTS: None. INDICATIONS: This patient is a 66-year-old male who is transferred from outside facility with concerns of left ankle infection. There was an unknown source and there was no trauma or surrounding wounds. The patient reports the pain and symptoms have persisted for approximately five days with no significant relief. Denies any significant prior injuries and no prior surgeries. Initial aspirate at outside facility by ED personnel failed to yield any results regarding a cell count. Therefore, aspirate was repeated here of the left ankle with a cell count of 93,000 white blood cells and 96% neutrophils indicative of a septic arthritis of the left ankle. The patient could not obtain MRI due to a spinal stimulator; however, a CT obtained at outside facility prior to transfer clearly demonstrated significant abscess collection in the posterior tibialis tendon sheath which also correlated with his significant swelling and erythema around the medial and posteromedial aspects of the ankle clinically. The patient states he has seen a packaging tech in the past and he was told he had a tendon issue with the tendinous support of the arch of his foot which would indeed be the posterior tibialis tendon. However, I had no clear documentation of a partial or complete rupture. The patient was educated on the evidence of infection as well as the treatment plan for an aggressive debridement and antibiotic therapy. He provided written informed consent and had the operative site marked. OPERATIVE PROCEDURE: The patient was transported to the operating room. General anesthesia was administered by the anesthesia providers without complication. He was transferred to a cantilever-type OR table in supine position. All bony prominences were well padded and he was adequately secured to the bed. Tourniquet was placed on the left thigh. Left lower extremity was then isolated, scrubbed with Hibiclens followed by alcohol, and prepped and draped in the usual sterile fashion. A time-out was performed that included all involved parties in correctly identifying the patient, planned procedure, and operative site and, after everyone agreed, we continued. We then completed a standard posterior medial approach to the ankle centered over the course of the tibialis posterior tendon and extended this approximately to the navicular tuberosity. The abscess was expressed once the tendon sheath was opened. The purulent material was then swabbed and sent for Gram stain and culture to help identify the bacteria and guide our antibiotic therapy postoperatively. Intraoperative antibiotics were held until this time but were administered following the cultures. The posterior tibialis tendon was completely ruptured in the region of the anterior colliculus of the medial malleolus. The tendon was of extremely poor quality and, due to the chronic attrition on top of active infection, we felt that the tendon was non-repairable and non-salvageable. Therefore, several centimeters were resected. The proximal muscle belly was also debrided until we had healthy tissue. The remaining structures in the deep posterior compartment of the leg at this level were identified and did not appear to have any surrounding infection or required debridement. We then continued to perform our excisional debridement with a surface area totaling 16 x 5 cm. Once all necrotic and nonviable tissue had been removed, we copiously irrigated with 9 liters of normal saline solution. We reexamined the wound. We were unable to express any purulence into the field from the surrounding areas and found no additional tissue requiring debridement. We then used 2-0 PDS to repair the tendon sheath as well as the subcutaneous tissue layers. The skin was approximated using 3-0 nylon in a horizontal mattress pattern. The field was cleaned and dried. Sterile bandage was applied as was a well-padded shor (more content not included)... Normal [facility] PTon 06-24-2022 INR Coag (PPP) [Relative time] 0.9 {INR} Normal [facility] Comment on above: Result Comment: Therapeutic Range: Moderate Anticoagulant Intensity: INR = 2.0-3.0 High Anticoagulant Intensity: INR = 2.5-3.5 Performed By: #### A ANC #### [facility] [employer] [address] [place] [address] Occupational Therapy Professor: Amador Lopez MD PT Coag (PPP) [Time] 9.9 s Normal 9.1-12.3 [facility] Comment on above: Performed By: #### A ANC #### [facility] [employer] [address] [place] [address] Occupational Therapy Professor: Amador Lopez MD Protime-INRon 06-24-2022 INR Coag (Bld) [Relative time] 0.9 {INR} [facility] Comment on above: Therapeutic Range: Moderate Anticoagulant Intensity: INR = 2.0-3.0 High Anticoagulant Intensity: INR = 2.5-3.5 PT Coag (PPP) [Time] 9.9 s [facility] UA w/Reflex Cultureon 2021 Bilirubin, SemiQt,Ur Negative Normal NEG [facility] Comment on above: Performed By: #### B MPX #### [address] [address] Occupational Therapy Professor: Amador Lopez MD Blood, Urine Negative Normal NEG [facility] Comment on above: Performed By: #### B MPX #### [address] [address] Occupational Therapy Professor: Amador Lopez MD Clarity (U) Clear Normal CLEAR [facility] Comment on above: Performed By: #### B MPX #### [address] [address] Occupational Therapy Professor: Amador Lopez MD Color (U) Yellow Normal YEL [facility] Comment on above: Performed By: #### B MPX #### [address] [address] Occupational Therapy Professor: Amador Lopez MD Comment Microscopic exam not performed based on chemical results unless requested in Normal [facility] Comment on above: Result Comment: orig inal order. Performed By: #### B MPX #### [address] [address] Occupational Therapy Professor: Amador Lopez MD Glucose Ql (U) Negative Normal NEG [facility] Comment on above: Performed By: #### B MPX #### [address] [address] Occupational Therapy Professor: Amador Lopez MD Ketones Ql (U) Negative Normal NEG [facility] Comment on above: Performed By: #### B MPX #### [address] [address] Occupational Therapy Professor: Amador Lopez MD Leukocyte esterase Test strip Ql (U) Negative Normal NEG [facility] Comment on above: Performed By: #### B MPX #### [address] [address] Occupational Therapy Professor: Amador Lopez MD Nitrite,Ur Negative Normal NEG [facility] Comment on above: Performed By: #### B MPX #### [address] [address] Occupational Therapy Professor: Amador Lopez MD PH,Ur 5.5 Normal 5.0-8.0 [facility] Comment on above: Performed By: #### B MPX #### [address] [address] Occupational Therapy Professor: Amador Lopez MD Protein Ql (U) Negative Normal NEG [facility] Comment on above: Performed By: #### B MPX #### [address] [address] Occupational Therapy Professor: Amador Lopez MD Spec. [place],Ur 1.019 Normal 1.005-1.030 [facility] Comment on above: Performed By: #### B MPX #### [address] [address] Occupational Therapy Professor: Amador Lopez MD Urobilinogen,Ur Normal Normal NORM [facility] Comment on above: Performed By: #### B MPX #### [address] [address] Occupational Therapy Professor: Amador Lopez MD Urinalysis with Reflex to Cu ltureon 06-24-2022 Bilirubin Urine Negative NEGATIVE [facility] Color, UA Yellow Yellow [facility] Glucose, Ur Negative NEGATIVE [facility] Ketones Ql (U) Negative NEGATIVE [place] [facility] Leukocyte esterase Test strip Ql (U) Negative NEGATIVE [facility] Nitrite, Urine Negative NEGATIVE [place] [facility] pH, UA 5.5 5 - 8 [facility] Protein, UA Negative NEGATIVE [facility] Specific [place], UA 1.019 1.005 - 1.[address] [facility] Turbidity UA Clear Clear [facility] Urinalysis Comments Microscopic exam not performed based on chemical results unless requested in original order. [facility] Urine Hgb Negative NEGATIVE [facility] Urobilinogen, Urine Normal Normal [facility] XR ANKLE LEFT (MIN 3 VIEWS)o n 06-24-2022 XR ANKLE LEFT (MIN 3 VIEWS) EXAMINATION: THREE XRAY VIEWS OF THE LEFT ANKLE 06/24/2022 4:18 am COMPARISON: None. HISTORY: ORDERING SYSTEM PROVIDED HISTORY: Severe left ankle pain TECHNOLOGIST PROVIDED HISTORY: Severe left ankle pain FINDINGS: Generalized soft tissue swelling most prominent at the medial ankle. No evidence of acute fracture or dislocation. The ankle mortise is congruent. Moderate ankle joint osteoarthritis. No evidence of joint effusion. Peripheral vascular calcifications. IMPRESSION: No acute bony abnormality of the ankle. Medial predominant soft tissue swelling. Moderate ankle joint osteoarthritis. Interpreted by: Malathi Love MD Signed by: Malathi Love MD 06/24/22 Final result Normal [facility] No acute bony abnormality of the ankle. Medial predominant soft tissue swelling. Moderate ankle joint osteoarthritis. [facility] EXAMINATION: THREE XRAY VIEWS OF THE LEFT ANKLE 06/24/2022 4:18 am COMPARISON: None. HISTORY: ORDERING SYSTEM PROVIDED HISTORY: Severe left ankle pain TECHNOLOGIST PROVIDED HISTORY: Severe left ankle pain FINDINGS: Generalized soft tissue swelling most prominent at the medial ankle. No evidence of acute fracture or dislocation. The ankle mortise is congruent. Moderate ankle joint osteoarthritis. No evidence of joint effusion. Peripheral vascular calcifications. [facility] Malathi Love MD - 06/24/2022 EXAMINATION: THREE XRAY VIEWS OF THE LEFT ANKLE 06/24/2022 4:18 am COMPARISON: None. HISTORY: ORDERING SYSTEM PROVIDED HISTORY: Severe left ankle pain TECHNOLOGIST PROVIDED HISTORY: Severe left ankle pain FINDINGS: Generalized soft tissue swelling most prominent at the medial ankle. No evidence of acute fracture or dislocation. The ankle mortise is congruent. Moderate ankle joint osteoarthritis. No evidence of joint effusion. Peripheral vascular calcifications. IMPRESSION: No acute bony abnormality of the ankle. Medial predominant soft tissue swelling. Moderate ankle joint osteoarthritis. [employer] Work Phone: XR ANKLE LEFT (MIN 3 VIEWS)O rdered By: Malathi Ivan on 06-24-2022 [employer] Work Phone: XR CHEST (SINGLE VIEW FRONTA L)on 06-24-2022 XR CHEST (SINGLE VIEW FRONTAL) EXAMINATION: ONE XRAY VIEW OF THE CHEST 06/24/2022 4:18 am COMPARISON: Chest x-ray 09/28/2019 HISTORY: ORDERING SYSTEM PROVIDED HISTORY: pre op TECHNOLOGIST PROVIDED HISTORY: pre op FINDINGS: Lungs are clear. Prominent right costophrenic angle, unchanged. Cardiomediastinal silhouette is within normal limits. No pleural effusion. No pneumothorax. Bony structures are unremarkable. Partially imaged spine stimulator, right reverse shoulder arthroplasty. IMPRESSION: No acute findings. Interpreted by: Ernie Temple MD Signed by: Ernie Temple MD 06/24/22 Final result Normal [facility] No acute findings. [facility] EXAMINATION: ONE XRAY VIEW OF THE CHEST 06/24/2022 4:18 am COMPARISON: Chest x-ray 09/28/2019 HISTORY: ORDERING SYSTEM PROVIDED HISTORY: pre op TECHNOLOGIST PROVIDED HISTORY: pre op FINDINGS: Lungs are clear. Prominent right costophrenic angle, unchanged. Cardiomediastinal silhouette is within normal limits. No pleural effusion. No pneumothorax. Bony structures are unremarkable. Partially imaged spine stimulator, right reverse shoulder arthroplasty. [facility] Ernie Temple MD - 06/24/2022 EXAMINATION: ONE XRAY VIEW OF THE CHEST 06/24/2022 4:18 am COMPARISON: Chest x-ray 09/28/2019 HISTORY: ORDERING SYSTEM PROVIDED HISTORY: pre op TECHNOLOGIST PROVIDED HISTORY: pre op FINDINGS: Lungs are clear. Prominent right costophrenic angle, unchanged. Cardiomediastinal silhouette is within normal limits. No pleural effusion. No pneumothorax. Bony structures are unremarkable. Partially imaged spine stimulator, right reverse shoulder arthroplasty. IMPRESSION: No acute findings. [facility] Work Phone: XR CHEST (SINGLE VIEW FRONTA L)Ordered By: Ernie Temple on 06-24-2022 [facility] Work Phone: C-Reactive Proteinon 022 CRP [Mass/Vol] 106 mg/L High 0 - 5 mg/L [facility] CBC with Auto Differentialon 06-23-2022 Absolute Eos # 0.39 [facility] Absolute Immature Granulocyte 0.00 [facility] Absolute Lymph # 1.05 Low [facility] Absolute [place] # 1.44 High [facility] Basophils (Bld) [#/Vol] 0.00 10*3/uL [facility] Basophils/100 WBC (Bld) 0 % 0 - 2 % B [facility] Eosinophils/100 WBC (Bld) 3 % 1 - 4 % [facility] Hematocrit (Bld) [Volume fraction] 44.0 % 40.7 - 50.3 % [facility] Hemoglobin (Bld) [Mass/Vol] 15.0 g/dL 13 - 17 g/dL [facility] Immature granulocytes/100 WBC (Bld) 0 % 0 [facility] Interpretation and review of laboratory results Abnormal [facility] Lymphocytes/100 WBC (Bld) 8 % Low 24 - 43 % [facility] MCH (RBC) [Entitic mass] 32.7 pg 25. 2 - 33.5 pg [facility] MCHC (RBC) [Mass/Vol] 34.1 g/dL 28.4 - 34.8 g/dL [facility] MCV (RBC) [Entitic vol] 95.9 fL 82.6 - 102.9 fL [facility] Monocytes/100 WBC (Bld) 11 % 3 - 12 % B [facility] Morphology Humza (Bld) [Interp] Normal [facility] NRBC Automated 0.0 0.0 per 100 WBC [facility] Platelet distribution width (Bld) [Ratio] 11.9 % 11.8 - 14.4 % [facility] Platelet mean volume (Bld) [Entitic vol] 10.6 fL 8.1 - 13.5 fL [facility] Platelets (Bld) [#/Vol] 210 10*3/uL [facility] RBC (Bld) [#/Vol] 4.59 10*6/uL 4.21 - 5.7 7 m/uL [facility] Segmented neutrophils/100 WBC (Bld) 78 % High 36 - 65 % [facility] Segs Absolute 10.22 High [facility] WBC (Bld) [#/Vol] 13.1 10*3/uL High [facility] C[facility] 06-23-2022 Albumin [Mass/Vol] 3.2 g/dL Low 3.5 - 5.2 g/dL [facility] Albumin/Globulin [Mass ratio] 1.0 {ratio} 1 - 2.5 [facility] ALP (Bld) [Catalytic activity/Vol] 73 U/L 40 - 129 U/L [facility] ALT [Catalytic activity/Vol] 15 U/L 5 - 41 U/L [facility] Anion gap [Moles/Vol] 8 mmol/L Low 9 - 17 mmol/L [facility] AST [Catalytic activity/Vol] 17 U/L NINF - 40 U/L [facility] Bilirubin [Mass/Vol] 0.78 mg/dL 0.3 - 1 .2 mg/dL [facility] Calcium [Mass/Vol] 8.3 mg/dL Low 8.6 - 10. 4 mg/dL [facility] Chloride [Moles/Vol] 94 mmol/L Low 98 - 10 7 mmol/L [facility] CO2 [Moles/Vol] 25 mmol/L 20 - 31 mmol/L [facility] Creatinine [Mass/Vol] 0.63 mg/dL Low 0.7 - 1.2 mg/dL [facility] Free PSA/Total PSA [Mass fraction] 6.5 g/dL 6.4 - 8.3 g/dL [facility] GFR >60 60 - PI NF mL/min [facility] GFR Non- >60 60 - PINF mL/min [facility] Glucose [Mass/Vol] 85 mg/dL 70 - 99 mg/dL [facility] Potassium [Moles/Vol] 4.2 mmol/L 3.7 - 5.3 mmol/L [facility] Sodium [Moles/Vol] 127 mmol/L Low 135 - 144 mmol/L [facility] Urea nitrogen (BldV) [Mass/Vol] 18 mg/dL 8 - 23 mg/dL [facility] Urea nitrogen/Creatinine (Bld) [Mass ratio] 29 High 9 - [address] [facility] [address] ANKLE LEFT W CONTRASTon 0 06-23-2022 EXAMINATION: CT OF THE LEFT ANKLE WITH CONTRAST 06/23/2022 1:44 pm TECHNIQUE: CT of the left ankle was performed with the administration of intravenous contrast. Multiplanar reformatted images are provided for review. Automated exposure control, iterative reconstruction, and/or weight based adjustment of the mA/kV was utilized to reduce the radiation dose to as low as reasonably achievable. COMPARISON: None. HISTORY ORDERING SYSTEM PROVIDED HISTORY: Left ankle swelling/redness/wa [facility] TECHNOLOGIST PROVIDED HISTORY: Left ankle swelling/redness/wa [facility] 66-year-old male with left ankle redness and swelling. FINDINGS: Bones: Diffuse osteopenia. Osseous alignment is normal. No marginal erosions. No aggressive osseous destruction. No acute fracture or dislocation. Calcaneus appears intact. Mild plantar calcaneal spur. Soft Tissue: Rim enhancement and large amount of fluid in the medial flexor and peroneal tendon sheaths. Moderate to severe edema in the subcutaneous fat about the ankle and foot. Atherosclerotic calcification of the vasculature. Moderate edema within the sinus tarsi fat. Joint: Large peripherally enhancing subtalar and tibiotalar joint effusions with marked fluid and rim enhancement of the medial flexor and peroneal tendon sheaths. Large amount of fluid distal to the master knot of John. Mild degenerative changes of the tibiotalar joint. Irregularity along the inferior aspect of the medial and lateral malleolus likely related to sequela of remote trauma. Remote avulsion fracture fragments inferior to the medial malleolus. Visualized anterior tendons are seen in their expected locations. Visualized Achilles tendon grossly unremarkable. [facility] Marquis Benitez MD - 06/23/2022 EXAMINATION: CT OF THE LEFT ANKLE WITH CONTRAST 06/23/2022 1:44 pm TECHNIQUE: CT of the left ankle was performed with the administration of intravenous contrast. Multiplanar reformatted images are provided for review. Automated exposure control, iterative reconstruction, and/or weight based adjustment of the mA/kV was utilized to reduce the radiation dose to as low as reasonably achievable. COMPARISON: None. HISTORY ORDERING SYSTEM PROVIDED HISTORY: Left ankle swelling/redness/wa [facility] TECHNOLOGIST PROVIDED HISTORY: Left ankle swelling/redness/wa [facility] 66-year-old male with left ankle redness and swelling. FINDINGS: Bones: Diffuse osteopenia. Osseous alignment is normal. No marginal erosions. No aggressive osseous destruction. No acute fracture or dislocation. Calcaneus appears intact. Mild plantar calcaneal spur. Soft Tissue: Rim enhancement and large amount of fluid in the medial flexor and peroneal tendon sheaths. Moderate to severe edema in the subcutaneous fat about the ankle and foot. Atherosclerotic calcification of the vasculature. Moderate edema within the sinus tarsi fat. Joint: Large peripherally enhancing subtalar and tibiotalar joint effusions with marked fluid and rim enhancement of the medial flexor and peroneal tendon sheaths. Large amount of fluid distal to the master knot of John. Mild degenerative changes of the tibiotalar joint. Irregularity along the inferior aspect of the medial and lateral malleolus likely related to sequela of remote trauma. Remote avulsion fracture fragments inferior to the medial malleolus. Visualized anterior tendons are seen in their expected locations. Visualized Achilles tendon grossly unremarkable. IMPRESSION: 1. Large peripherally enhancing subtalar and tibiotalar joint effusions in communication with a large amount of fluid within and rim enhancement of the medial flexor and peroneal tendon sheaths. The sterility of this fluid is indeterminate. Findings raise concern for septic joint effusions and infectious tenosynovitis involving the medial flexor and peroneal tendons. 2. Moderate to severe cellulitis of the foot and ankle. 3. No aggressive osseous destruction. 4. Diffuse osteopenia and degenerative changes as detailed above. 5. Evidence of remote injury to the medial and lateral malleolus. 6. Mild plantar calcaneal spur. No acute fracture or dislocation. [employer] Work Phone: Radiology Study observation (narrative) [employer] Work Phone: CT ANKLE LEFT W CONTRASTOrde red By: Marquis Guerrero on 06-23-2022 [employer] Work Phone: Laboratory - Chemistry and C hemistry - challengeon 06-23-2022 GFR/1.73 sq M.predicted MDRD (S/P/Bld) [Vol rate/Area] [facility] [employer] Comment on above: Average GFR for 60-6 9 years old: 85 mL/min/1.73sq m Chronic Kidney Disease: <60 mL/min/1.73sq m Kidney failure: <15 mL/min/1.73sq m eGFR calculated using average adult body mass. Additional eGFR calculator available at: http://www.Appiphany/multiple_crcl_2012.htm Stage 1: Some kidney damage normal GFR Stage 2: Mild kidney damage GFR 60-89 Stage 3: Moderate kidney damage GFR 30-59 Stage 4: Severe kidney damage GFR 15-29 Stage 5: Severe kidney damage GFR <15 ESRD - chronic treatment by dialysis or transplant No Panel Informationon 06-23 Interpretation and review of laboratory results Abnormal [facility] Sedimentation Rateon 022 Interpretation and review of laboratory results Abnormal [facility] [employer] Sed Rate 61 High [facility] [employer] [facility] XR THORACIC SPINE, 3 VIEWSon 09-16-2021 XR THORACIC SPINE, 3 VIEWS CLINICAL INDICATION: Evaluate for djd and SCS lead placement EXAM DESCRIPTION: XR THORACIC SPINE, 3 VIEWS 09/15/2021 12:43 pm COMPARISON: Coned-down fluoroscopic images performed 07/13/2021. TECHNIQUE: Frontal and lateral views of the thoracic spine were obtained for a total of 5 images. FINDINGS: There are 12 rib-bearing thoracic type vertebral segments. Mild dextrocurvature of the thoracic spine is present with the apex at T8. Pedicles appear symmetric. There is anterior wedging of a midthoracic vertebral body, likely T6 or T7. Spinal nerve stimulator leads are noted a level below this region; tip of the left stimulator lead is approximately 1.2 cm inferior to the tip of the right stimulator lead. This is a new finding from 07/13/2021. The remaining vertebral body heights are well preserved. Mild degenerative changes are present throughout the thoracic spine. Additional degenerative disc disease is noted in the lumbar spine, partially imaged. IMPRESSION: 1. Anterior wedge deformity at either T6 or T7, age indeterminate. Correlation with point tenderness is recommended. 2. Spinal nerve stimulator device as described above with the left lead tip more inferior compare to the right, new from comparison. Normal [facility] Basic Metabolic PanelOrdered By: Tyrell Weinberg on 06-29-2021 Anion gap [Moles/Vol] 11 mmol/L 9 - 17 mmol/L [employer] Phone: Calcium [Mass/Vol] 8.7 mg/dL 8.6 - 10. 4 mg/dL [employer] Phone: Chloride [Moles/Vol] 96 mmol/L Low 98 - 10 7 mmol/L [employer] Phone: CO2 [Moles/Vol] 21 mmol/L 20 - 31 mmol/L [employer] Phone: Creatinine [Mass/Vol] 0.63 mg/dL Low 0.70 - 1.20 mg/dL [employer] Phone: GFR >60 >60 mL/min [employer] Phone: GFR Non- >60 >60 mL/min [employer] Phone: Glucose [Mass/Vol] 96 mg/dL 70 - 99 mg/dL [employer] Phone: Interpretation and review of laboratory results Abnormal [employer] Work Phone: Potassium [Moles/Vol] 4.3 mmol/L 3.7 - 5.3 mmol/L [employer] Work Phone: Sodium [Moles/Vol] 128 mmol/L Low 135 - 144 mmol/L [employer] Work Phone: Urea nitrogen (BldV) [Mass/Vol] 8 mg/dL 8 - 23 mg/dL [employer] Work Phone: Urea nitrogen/Creatinine (Bld) [Mass ratio] 13 [employer] Work Phone: [employer] Work Phone: CBC Auto DifferentialOrdered By: Tyrell Weinberg on 06-29-2021 Absolute [employer] # 0.03 [employer] Work Phone: Absolute Immature Granulocyte 0.10 [employer] Work Phone: Absolute Lymph # 1.06 Low [facility] Work Phone: Absolute [place] # 0.92 [facility] Work Phone: Basophils (Bld) [#/Vol] 10*3/uL M [employer] Work Phone: Basophils/100 WBC (Bld) 0 % 0 - 2 % M [employer] Work Phone: Differential Type NOT REPORTED [employer] Phone: Eosinophils/100 WBC (Bld) 0 % Low 1 - 4 % [employer] Phone: Hematocrit (Bld) [Volume fraction] 45.4 % 40.7 - 50.3 % [employer] Work Phone: Hemoglobin.gastrointestin al spec 1 Ql (Stl) 15.1 g/dL 13.0 - 17.0 g/dL [employer] Work Phone: Immature granulocytes/100 WBC (Bld) 2 % High 0 [employer] Work Phone: Interpretation and review of laboratory results Abnormal [employer] Work Phone: Lymphocytes/100 WBC (Bld) 15 % Low 24 - 43 % [employer] Phone: MCH (RBC) [Entitic mass] 32.8 pg 25. 2 - 33.5 pg [employer] Phone: MCHC (RBC) [Mass/Vol] 33.3 g/dL 28.4 - 34.8 g/dL [employer] Phone: MCV (RBC) [Entitic vol] 98.5 fL 82.6 - 102.9 fL [employer] Phone: Monocytes/100 WBC (Bld) 13 % High 3 - 12 % [employer] Phone: NRBC Automated 0.0 0.0 per 100 WBC [employer] Phone: Platelet distribution width (Bld) [Ratio] 11.7 % Low 11.8 - 14.4 % [employer] Phone: Platelet Estimate NOT REPORTED [employer] Phone: Platelet mean volume (Bld) [Entitic vol] 10.0 fL 8.1 - 13.5 fL [employer] Phone: Platelets (Bld) [#/Vol] 201 10*3/uL [employer] Phone: RBC (Bld) [#/Vol] 4.61 10*6/uL 4.21 - 5.7 7 m/uL [employer] Phone: RBC (Bld) [#/Vol] NOT REPORTED [employer] Phone: Segmented neutrophils/100 WBC (Bld) 70 % High 36 - 65 % [employer] Phone: Segs Absolute 4.74 [employer] Work Phone: WBC (Bld) [#/Vol] 6.9 10*3/uL [employer] Phone: WBC (Bld) [#/Vol] NOT REPORTED [employer] Phone: [employer] Phone: Laboratory - Chemistry and C hemistry - challengeOrdered By: Tyrell Weinberg on 06-29-2021 GFR/1.73 sq M.predicted MDRD (S/P/Bld) [Vol rate/Area] [employer] Phone: Comment on above: Average GFR for 60-6 9 years old: 85 mL/min/1.73sq m Chronic Kidney Disease: <60 mL/min/1.73sq m Kidney failure: <15 mL/min/1.73sq m eGFR calculated using average adult body mass. 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1955 Requested By: [id number] Order Number: [id number] Reading MD: Ion Marquez Measurements Intervals [place] Rate: 96 P: 71 MD: 180 QRS: 53 QRSD: 98 T: 47 QT: 354 QTc: 447 Interpretive Statements Normal sinus rhythm Inferior-posterior infarct , age undetermined Electronically Signed On 05-20-2021 13:04:09 EDT by Ion Marquez Normal [facility] MSSA BY AMPLIFICATIONon MRSA isol Org specific cx Ql (Unsp spec) [facility] Comment on above: Result Comment: POSI TIVE NEGATIVE Performed By: #### S TAP #### [address] [address] Hemoglobin and Hematocrit, B loodon 10-13-2020 Hematocrit (Bld) [Volume fraction] 44.2 % 40.7 - 50.3 % [place], [place] Hemoglobin (Bld) [Mass/Vol] 14.5 g/dL 13 - 17 g/dL [place] XR SHOULDER RIGHT 1 VWon Status post reverse total right shoulder arthroplasty, in gross anatomic alignment, with postoperative changes, without evidence of hardware complication, fracture or dislocation. 2 mm linear radiopaque opacity overlying the proximal metaphysis of the right humerus, likely related to surgical clip. Atelectasis at the right lung base. [place], [place] EXAMINATION: ONE XRAY VIEW OF THE RIGHT SHOULDER 10/13/2020 4:40 pm COMPARISON: None. HISTORY: ORDERING SYSTEM PROVIDED HISTORY: Post-op TECHNOLOGIST PROVIDED HISTORY: Of operative side while in recovery room. Post-op FINDINGS: The patient is status post reverse total right shoulder arthroplasty, in gross anatomic alignment, without evidence of hardware complication, fracture or dislocation. There are postoperative changes with soft tissue swelling and overlying skin khushboo. The right AC joint is intact. There is 2 mm linear radiopaque opacity overlying the proximal metaphysis of the right humerus, likely related to surgical clip. There is atelectasis at the right lung base. [place], [place] [employer] Incoming Radiant Results From [employer] - 10/13/2020 5:26 PM EST EXAMINATION: ONE XRAY VIEW OF THE RIGHT SHOULDER 10/13/2020 4:40 pm COMPARISON: None. HISTORY: ORDERING SYSTEM PROVIDED HISTORY: Post-op TECHNOLOGIST PROVIDED HISTORY: Of operative side while in recovery room. Post-op FINDINGS: The patient is status post reverse total right shoulder arthroplasty, in gross anatomic alignment, without evidence of hardware complication, fracture or dislocation. There are postoperative changes with soft tissue swelling and overlying skin khushboo. The right AC joint is intact. There is 2 mm linear radiopaque opacity overlying the proximal metaphysis of the right humerus, likely related to surgical clip. There is atelectasis at the right lung base. IMPRESSION: Status post reverse total right shoulder arthroplasty, in gross anatomic alignment, with postoperative changes, without evidence of hardware complication, fracture or dislocation. 2 mm linear radiopaque opacity overlying the proximal metaphysis of the right humerus, likely related to surgical clip. Atelectasis at the right lung base. [place], [place] COVID-19 Ambulatoryon 2019 SARS-CoV-2, RENETTA Not Detected Not Detected [facility] Comment on above: (NOTE) This nucleic acid amplification test was developed and its performance characteristics determined by [employer]. Nucleic acid amplification tests include PCR and TMA. This test has not been FDA cleared or approved. This test has been authorized by FDA under an Emergency Use Authorization (EUA). This test is only authorized for the duration of time the declaration that circumstances exist justifying the authorization of the emergency use of in vitro diagnostic tests for detection of SARS-CoV-2 virus and/or diagnosis of COVID-19 infection under section 564(b)(1) of the Act, 21 U.S.C. 360bbb-3(b) (1), unless the authorization is terminated or revoked sooner. When diagnostic testing is negative, the possibility of a false negative result should be considered in the context of a patient's recent exposures and the presence of clinical signs and symptoms consistent with COVID-19. An individual without symptoms of COVID- 19 and who is not shedding SARS-CoV-2 virus would expect to have a negative (not detected) result in this assay. Performed At: [facility] [address] [place] [id number] Yolette Mejia MD Ph:[phone] FLUORO FOR SURGICAL PROCEDUR ESon 09-08-2020 Radiology exam is complete. No Radiologist dictation. Please follow up with ordering provider. [facility]O FOR SURGICAL PROCEDUR ESon 08-11-2020 Radiology exam is complete. No Radiologist dictation. Please follow up with ordering provider. [facility] Covid-19, Antibody, Totalon 06-17-2020 SARS-CoV-2, Total Negative NEGATIVE [facility] Comment on above: Negative results do not rule out SARS-CoV-2 infection, particularly in those who have been in contact with the virus. Follow-up testing with a molecular diagnostic should be considered to rule out infection in these individuals. Results from antibody testing should not be used as the sole basis to diagnose or exclude SARS-CoV-2 infection or to inform infection status. This test has been authorized by the FDA under an Emergency Use Authorization (EUA) for use by authorized laboratories. Fact sheet for Healthcare Providers: https://www.fda.gov/media/857172/download Fact sheet for Patients: https://www.fda.gov/media/088110/download METHODOLOGY: [facility] MRI LUMBAR SPINE Sanjuanita Hedrick 05-25-2020 1. Moderate L4-L5 degenerative disc disease with disc bulge contributing to moderate bilateral neural foraminal stenosis. 2. Mild bilateral L2-L3 neural foraminal stenosis. [facility] EXAMINATION: MRI OF THE LUMBAR SPINE WITHOUT AND WITH CONTRAST 05/25/2020 2:23 pm TECHNIQUE: Multiplanar multisequence MRI of the lumbar spine was performed without and with the administration of intravenous contrast. COMPARISON: 02/28/2019 HISTORY: ORDERING SYSTEM PROVIDED HISTORY: Low back pain, unspecified back pain laterality, unspecified chronicity, unspecified whether sciatica present FINDINGS: BONES/ALIGNMENT: Sagittal alignment of the lumbar spine is normal. Lumbar vertebral bodies are normal in height. No acute lumbar spine fracture. Fatty degenerative marrow changes are seen at L4-L5. Remaining marrow signal pattern is within normal limits. SPINAL CORD: The conus terminates normally. SOFT TISSUES: No abnormal enhancement is seen of the lumbar spine. No paraspinal mass identified. T12-L1: No disc herniation, spinal canal stenosis, or neural foraminal stenosis. L1-L2: Minimal DDD. Disc bulge measures 2 mm. No significant spinal canal stenosis. No significant neural foraminal stenosis. L2-L3: Minimal DDD. Disc bulge measures 2 mm. No spinal canal stenosis. Mild bilateral neural foraminal stenosis. L3-L4: There is no significant disc protrusion, spinal canal stenosis or neural foraminal narrowing. L4-L5: Moderate DDD. Disc bulge measures 4 mm. Bilateral facet joint DJD. No significant spinal canal stenosis. Moderate bilateral neural foraminal stenosis. L5-S1: There is no significant disc protrusion, spinal canal stenosis or neural foraminal narrowing. [facility] [employer] Incoming Radiant Results From [employer] - 05/25/2020 9:29 PM EDT EXAMINATION: MRI OF THE LUMBAR SPINE WITHOUT AND WITH CONTRAST 05/25/2020 2:23 pm TECHNIQUE: Multiplanar multisequence MRI of the lumbar spine was performed without and with the administration of intravenous contrast. COMPARISON: 02/28/2019 HISTORY: ORDERING SYSTEM PROVIDED HISTORY: Low back pain, unspecified back pain laterality, unspecified chronicity, unspecified whether sciatica present FINDINGS: BONES/ALIGNMENT: Sagittal alignment of the lumbar spine is normal. Lumbar vertebral bodies are normal in height. No acute lumbar spine fracture. Fatty degenerative marrow changes are seen at L4-L5. Remaining marrow signal pattern is within normal limits. SPINAL CORD: The conus terminates normally. SOFT TISSUES: No abnormal enhancement is seen of the lumbar spine. No paraspinal mass identified. T12-L1: No disc herniation, spinal canal stenosis, or neural foraminal stenosis. L1-L2: Minimal DDD. Disc bulge measures 2 mm. No significant spinal canal stenosis. No significant neural foraminal stenosis. L2-L3: Minimal DDD. Disc bulge measures 2 mm. No spinal canal stenosis. Mild bilateral neural foraminal stenosis. L3-L4: There is no significant disc protrusion, spinal canal stenosis or neural foraminal narrowing. L4-L5: Moderate DDD. Disc bulge measures 4 mm. Bilateral facet joint DJD. No significant spinal canal stenosis. Moderate bilateral neural foraminal stenosis. L5-S1: There is no significant disc protrusion, spinal canal stenosis or neural foraminal narrowing. IMPRESSION: 1. Moderate L4-L5 degenerative disc disease with disc bulge contributing to moderate bilateral neural foraminal stenosis. 2. Mild bilateral L2-L3 neural foraminal stenosis. [place], [place] Creatinine, Serumon 05-18-20 20 Creatinine [Mass/Vol] 0.6 mg/dL Low 0.7 - 1.2 mg/dL [place] GFR >60 >60 mL/min [place], [place] GFR Non- >60 >60 mL/min [place] Interpretation and review of laboratory results Abnormal [place], [place] Metabolic Panelon 05-18-2020 GFR/1.73 sq M predicted among non-blacks MDRD (S/P/Bld) [Vol rate/Area] [place] Comment on above: Average GFR for 60-6 9 years old: 85 mL/min/1.73sq m Chronic Kidney Disease: <60 mL/min/1.73sq m Kidney failure: <15 mL/min/1.73sq m eGFR calculated using average adult body mass. Additional eGFR calculator available at: http://www.StubHub.BioTeSys/multiple_crcl_2012.htm Stage 1: Some kidney damage normal GFR Stage 2: Mild kidney damage GFR 60-89 Stage 3: Moderate kidney damage GFR 30-59 Stage 4: Severe kidney damage GFR 15-29 Stage 5: Severe kidney damage GFR <15 ESRD - chronic treatment by dialysis or transplant XR CHEST STANDARD (2 VW)on 11-28-2018 No acute cardiopulmonary process. [place] EXAMINATION: TWO XRAY VIEWS OF THE CHEST 09/28/2019 12:52 pm COMPARISON: Chest CT 03/11/2019, chest radiograph 01/27/2017 HISTORY: ORDERING SYSTEM PROVIDED HISTORY: cough TECHNOLOGIST PROVIDED HISTORY: cough FINDINGS: Clear lungs. No findings of pneumothorax or pleural effusion. Normal mediastinal, hilar, and cardiac contours. Suture anchor in the left humeral head, suggesting tendon repair. Diffuse osseous demineralization. No obvious acute fracture. [place], [place] [employer] Incoming Radiant Results From [employer] - 09/28/2019 1:03 PM EST EXAMINATION: TWO XRAY VIEWS OF THE CHEST 09/28/2019 12:52 pm COMPARISON: Chest CT 03/11/2019, chest radiograph 01/27/2017 HISTORY: ORDERING SYSTEM PROVIDED HISTORY: cough TECHNOLOGIST PROVIDED HISTORY: cough FINDINGS: Clear lungs. No findings of pneumothorax or pleural effusion. Normal mediastinal, hilar, and cardiac contours. Suture anchor in the left humeral head, suggesting tendon repair. Diffuse osseous demineralization. No obvious acute fracture. IMPRESSION: No acute cardiopulmonary process. [place], [place] Vital Signs Date Time Vital Sign Value Performing Clinician Matthew maguire 07-01-2023 10:23-040 Body mass index (BMI) [Ratio] 25.92 kg/m2 Nadege Muñoz DO Work Phone: [facility] [employer] 07-01-2023 10:23-040 Body temperature 97.81 [degF] Nadege Muñoz DO Work Phone: [facility] [employer] [facility] 07-01-2023 10:23-0400 Body weight 76.2 kg Nadege Muñoz DO Work Phone: [facility] [employer] [facility] 07-01-2023 10:23-040 Diastolic blood pressure 82 mm[Hg] Nadege Muñoz DO Work Phone: [facility] [employer] [email or web address] 07-01-2023 10:23-0400 Heart rate 82 /min Nadege Muñoz DO Work Phone: [facility] 07-01-2023 10:23-0400 Respiratory rate 16 /min Nadege Muñzo DO Work Phone: [facility] 07-01-2023 10:23-0400 SaO2% (BldA) [Mass fraction] 95 % Nadege Muñoz DO Work Phone: [facility] 07-01-2023 10:23-0400 Systolic blood pressure 160 mm[Hg] Nadege Muñoz DO Work Phone: [facility] 03-01-2023 11:16-0400 Body temperature 98.4 [degF] Cristopher Moreira MD Work Phone: [facility] 03-01-2023 11:16-0400 Diastolic blood pressure 68 mm[Hg] Cristopher Moreira MD Work Phone: [facility] 03-01-2023 11:16-0400 Heart rate 95 /min Cristopher Moreira MD Work Phone: [facility] 03-01-2023 11:16-0400 Respiratory rate 18 /min Cristopher Moreira MD Work Phone: [facility] 03-01-2023 11:16-0400 SaO2% (BldA) [Mass fraction] 94 % Cristopher Moreira MD Work Phone: [facility] 03-01-2023 11:16-0400 Systolic blood pressure 128 mm[Hg] Cristopher Moreira MD Work Phone: [facility] 02-28-2023 14:43-0400 Body height 170.2 cm Cristopher Moreira MD Work Phone: [facility] 02-28-2023 14:43-0400 Body mass index (BMI) [Ratio] 27.1 kg/m2 Cristopher Moreira MD Work Phone: [facility] 02-28-2023 14:43-0400 Body weight 78.47 kg Cristopher Moreira MD Work Phone: [facility] 02-22-2023 09:49-0400 Body height 163.8 cm Carissa Richendollar OUTSOLE COMPRESSOR-PHYSICAL MEDICINE SPECIALIST Work Phone: [facility] 02-22-2023 09:49-0400 Body mass index (BMI) [Ratio] 28.39 kg/m2 Carissa Richendollar OUTSOLE COMPRESSOR-PHYSICAL MEDICINE SPECIALIST Work Phone: [facility] 02-22-2023 09:49-0400 Body temperature 98.2 [degF] Carissa Richendollar OUTSOLE COMPRESSOR-PHYSICAL MEDICINE SPECIALIST Work Phone: [facility] 02-22-2023 09:49-0400 Body weight 76.2 kg Carissa Richendollar OUTSOLE COMPRESSOR-PHYSICAL MEDICINE SPECIALIST Work Phone: [facility] 02-22-2023 09:49-0400 Diastolic blood pressure 60 mm[Hg] Carissa Richendollar OUTSOLE COMPRESSOR-PHYSICAL MEDICINE SPECIALIST Work Phone: [facility] 02-22-2023 09:49-0400 Heart rate 97 /min Carissa Richendollar OUTSOLE COMPRESSOR-PHYSICAL MEDICINE SPECIALIST Work Phone: [facility] 02-22-2023 09:49-0400 Respiratory rate 16 /min Carissa Richendollar OUTSOLE COMPRESSOR-PHYSICAL MEDICINE SPECIALIST Work Phone: [facility] 02-22-2023 09:49-0400 SaO2% (BldA) [Mass fraction] 98 % Carissa Richendollar OUTSOLE COMPRESSOR-PHYSICAL MEDICINE SPECIALIST Work Phone: [facility] 02-22-2023 09:49-0400 Systolic blood pressure 98 mm[Hg] Carissa Richendollar OUTSOLE COMPRESSOR-PHYSICAL MEDICINE SPECIALIST Work Phone: [facility] 01-12-2023 01:11-0500 Diastolic blood pressure 74 mm[Hg] Landen Valdes MD Work Phone: [id number] Media [facility] 01-12-2023 01:11-0500 Heart rate 95 /min Landen Valdes MD Work Phone: [facility] 01-12-2023 01:11-0500 Respiratory rate 15 /min Landen Valdes MD Work Phone: [facility] 01-12-2023 01:11-0500 SaO2% (BldA) [Mass fraction] 98 % Landen Valdes MD Work Phone: [facility] 01-12-2023 01:11-0500 Systolic blood pressure 160 mm[Hg] Landen Valdes MD Work Phone: [facility] 01-11-2023 23:13-0500 Body mass index (BMI) [Ratio] 25.15 kg/m2 Landen Valdes MD Work Phone: [id number] Media [facility] 01-11-2023 23:13-0500 Body temperature 99.19 [degF] Landen Valdes MD Work Phone: [id number] Media [facility] 01-11-2023 23:13-0500 Body weight 73.94 kg Landen Valdes MD Work Phone: [facility] 01-02-2023 11:00-0500 Body temperature 97.2 [degF] Cristopher Moreira MD Work Phone: [facility] 01-02-2023 11:00-0500 Diastolic blood pressure 60 mm[Hg] Cristopher Moreira MD Work Phone: [facility] 01-02-2023 11:00-0500 Heart rate 73 /min Cristopher Moreira MD Work Phone: [facility] 01-02-2023 11:00-0500 Respiratory rate 16 /min Cristopher Moreira MD Work Phone: [facility] 01-02-2023 11:00-0500 SaO2% (BldA) [Mass fraction] 97 % Cristopher Moreira MD Work Phone: [facility] 01-02-2023 11:00-0500 Systolic blood pressure 145 mm[Hg] Cristopher Moreira MD Work Phone: [facility] 01-02-2023 09:05-0500 Body height 170.2 cm Cristopher Moreira MD Work Phone: [facility] 01-02-2023 09:05-0500 Body mass index (BMI) [Ratio] 25.37 kg/m2 Cristopher Moreira MD Work Phone: [facility] 01-02-2023 09:05-0500 Body weight 73.5 kg Cristopher Moreira MD Work Phone: [facility] 12-08-2022 14:00-0500 Body temperature 98.1 [degF] [facility] [id number] Media [facility] [employer] 12-08-2022 14:00-0500 Diastolic blood pressure 90 mm[Hg] [id number] Media [facility] [employer] 12-08-2022 14:00-0500 Heart rate 73 /min [id number] Media [facility] [employer] 12-08-2022 14:00-0500 Respiratory rate 18 /min [facility] [id number] Media [facility] [employer] 12-08-2022 14:00-0500 Systolic blood pressure 138 mm[Hg] [id number] Media [facility] [employer] 12-07-2022 13:14-0500 Body temperature 98.4 [degF] [facility] [employer] 12-07-2022 13:14-0500 Diastolic blood pressure 58 mm[Hg] [id number] Media [facility] [employer] 12-07-2022 13:14-0500 Heart rate 77 /min [id number] Media [facility] [email or web address] 12-07-2022 13:14-0500 Respiratory rate 18 /min [facility] [id number] Media [facility] [employer] 12-07-2022 13:14-0500 Systolic blood pressure 103 mm[Hg] [facility] 12-06-2022 13:15-0500 Diastolic blood pressure 58 mm[Hg] [facility] 01 [facility] 12-06-2022 13:15-0500 Heart rate 75 /min [facility] 01 [facility] 12-06-2022 13:15-0500 Respiratory rate 18 /min [facility] 01 [facility] 12-06-2022 13:15-0500 Systolic blood pressure 118 mm[Hg] [facility] 01 [facility] 12-05-2022 13:02-0500 Body temperature 97.5 [degF] [facility] 01 [facility] 12-05-2022 13:02-0500 Diastolic blood pressure 63 mm[Hg] [facility] 01 [facility] 12-05-2022 13:02-0500 Heart rate 81 /min [facility] 01 [facility] 12-05-2022 13:02-0500 Respiratory rate 20 /min [facility] 12-05-2022 13:02-0500 Systolic blood pressure 157 mm[Hg] [facility] 01 [facility] 12-04-2022 13:29-0500 Body temperature 98.91 [degF] [facility] 01 [facility] 12-04-2022 13:29-0500 Diastolic blood pressure 64 mm[Hg] [facility] 01 [facility] 12-04-2022 13:29-0500 Heart rate 88 /min [facility] 01 [facility] 12-04-2022 13:29-0500 Respiratory rate 20 /min [facility] 01 [facility] 12-04-2022 13:29-0500 Systolic blood pressure 103 mm[Hg] [facility] 01 [facility] 12-03-2022 12:47-0500 Body temperature 98.4 [degF] [facility] 01 [facility] 12-03-2022 12:47-0500 Diastolic blood pressure 75 mm[Hg] [facility] 01 [facility] 12-03-2022 12:47-0500 Heart rate 80 /min [facility] 01 [facility] 12-03-2022 12:47-0500 Respiratory rate 18 /min [facility] 01 [facility] 12-03-2022 12:47-0500 SaO2% (BldA) [Mass fraction] 97 % [facility] 01 [facility] 12-03-2022 12:47-0500 Systolic blood pressure 131 mm[Hg] [facility] 01 [facility] 12-02-2022 13:00-0500 Diastolic blood pressure 67 mm[Hg] [facility] 01 [facility] 12-02-2022 13:00-0500 Heart rate 77 /min [facility] 01 [facility] 12-02-2022 13:00-0500 Respiratory rate 18 /min [facility] 01 [facility] 12-02-2022 13:00-0500 Systolic blood pressure 128 mm[Hg] [facility] 01 [facility] 12-01-2022 14:13-0500 Body temperature 97.7 [degF] [facility] 01 [facility] 12-01-2022 14:13-0500 Diastolic blood pressure 74 mm[Hg] [facility] 01 [facility] [id number] Media [facility] 12-01-2022 14:13-0500 Heart rate 70 /min [facility] 01 [facility] 12-01-2022 14:13-0500 Respiratory rate 18 /min [facility] 01 [facility] 12-01-2022 14:13-0500 Systolic blood pressure 113 mm[Hg] [facility] 01 [facility] 11-30-2022 13:04-0500 Body temperature 99.39 [degF] [facility] 01 [facility] 11-30-2022 13:04-0500 Diastolic blood pressure 60 mm[Hg] [facility] 01 [facility] 11-30-2022 13:04-0500 Heart rate 74 /min [facility] 01 [facility] [employer] Dorina [facility] 11-30-2022 13:04-0500 Respiratory rate 18 /min [facility] 01 [facility] 11-30-2022 13:04-0500 Systolic blood pressure 107 mm[Hg] [facility] 01 [facility] 11-29-2022 13:02-0500 Body temperature 97.59 [degF] [facility] 01 [facility] 11-29-2022 13:02-0500 Diastolic blood pressure 86 mm[Hg] [facility] 01 [facility] [employer] [facility] 11-29-2022 13:02-0500 Heart rate 91 /min [facility] 01 [facility] [employer] 11-29-2022 13:02-0500 Respiratory rate 18 /min [facility] 01 [facility] [employer] 11-29-2022 13:02-0500 Systolic blood pressure 158 mm[Hg] [facility] 01 [facility] HERNA[facility]Z [facility] 11-28-2022 12:59-0500 Body temperature 98.4 [degF] [facility] 01 [facility] [employer] 11-28-2022 12:59-0500 Diastolic blood pressure 70 mm[Hg] [facility] 01 [facility] [employer] 11-28-2022 12:59-0500 Heart rate 92 /min [facility] 01 [facility] [employer] 11-28-2022 12:59-0500 Respiratory rate 16 /min [facility] 01 [facility] [employer] 11-28-2022 12:59-0500 Systolic blood pressure 117 mm[Hg] [facility] 01 [facility] [facility] 11-27-2022 13:30-0500 Body temperature 97.9 [degF] [facility] 01 D[facility] SECR[facility] [employer] 11-27-2022 13:30-0500 Diastolic blood pressure 54 mm[Hg] [facility] 01 D[facility] [facility] [employer] 11-27-2022 13:30-0500 Heart rate 88 /min [facility] 01 [facility] [facility] [employer] 11-27-2022 13:30-0500 Respiratory rate 14 /min [facility] 01 [facility] HERNANDEZ [facility] [employer] 11-27-2022 13:30-0500 SaO2% (BldA) [Mass fraction] 96 % [facility] 01 D[address] [facility] [employer] 11-27-2022 13:30-0500 Systolic blood pressure 91 mm[Hg] [facility] 01 DUT[address] [facility] [employer] 11-25-2022 15:30-0500 Diastolic blood pressure 69 mm[Hg] Akil Saini DPM Work Phone: D[facility] [employer] 11-25-2022 15:30-0500 Heart rate 78 /min Akil Saini DPM Work Phone: D[facility]CH [facility] [employer] 11-25-2022 15:30-0500 Respiratory rate 18 /min Akil Saini DPM Work Phone: DUTCH [employer] 11-25-2022 15:30-0500 SaO2% (BldA) [Mass fraction] 96 % Akil Saini DPM Work Phone: [employer] 11-25-2022 15:30-0500 Systolic blood pressure 146 mm[Hg] Akil Saini DPM Work Phone: [employer] [id number] Media [facility] [employer] 11-25-2022 14:15-0500 Body temperature 97 [degF] Akil Saini DPM Work Phone: [employer] [id number] Media [facility] [employer] 11-25-2022 10:38-0500 Body height 171.5 cm Akil Saini DPM Work Phone: [employer] 11-25-2022 10:38-0500 Body mass index (BMI) [Ratio] 25.46 kg/m2 Akil Saini DPM Work Phone: [employer] [facility] [employer] 11-25-2022 10:38-0500 Body weight 74.84 kg Akil Saini DPM Work Phone: [employer] [facility] [employer] 07-04-2022 12:26-0400 Body temperature 97.5 [degF] [facility] [employer] [facility] [email or web address] 07-04-2022 11:54-0400 Body height 171.5 cm [email or web address] 07-04-2022 11:54-0400 Body mass index (BMI) [Ratio] 26.39 kg/m2 [id number] Media [email or web address] 07-04-2022 11:54-0400 Body weight 77.56 kg [id number] Media [facility] [email or web address] 07-04-2022 11:54-0400 Diastolic blood pressure 68 mm[Hg] [id number] Media [email or web address] 07-04-2022 11:54-0400 Heart rate 70 /min [facility] [employer] 07-04-2022 11:54-0400 Respiratory rate 18 /min [id number] Media [facility] [employer] 07-04-2022 11:54-0400 SaO2% (BldA) [Mass fraction] 98 % [employer] [email or web address] 07-04-2022 11:54-0400 Systolic blood pressure 130 mm[Hg] [employer] [email or web address] 06-26-2022 12:20-0400 Respiratory rate 16 /min Pardeep Infante DO Work Phone: [facility] [employer] 06-26-2022 07:28-0400 Body temperature 97.39 [degF] Pardeep Infante DO Work Phone: [facility] [employer] 06-26-2022 07:28-0400 Diastolic blood pressure 65 mm[Hg] Pardeep Infante DO Work Phone: [facility] [employer] 06-26-2022 07:28-0400 Heart rate 65 /min Pardeep Infante DO Work Phone: [facility] [employer] 06-26-2022 07:28-0400 SaO2% (BldA) [Mass fraction] 96 % Pardeep Infante DO Work Phone: [facility] [employer] 06-26-2022 07:28-0400 Systolic blood pressure 139 mm[Hg] Pardeep Infante DO Work Phone: [facility] [employer] 06-24-2022 10:02-0400 Body height 172.7 cm Pardeep Infante DO Work Phone: [facility] [employer] 06-24-2022 10:02-0400 Body mass index (BMI) [Ratio] 26.3 kg/m2 Pardeep Infante DO Work Phone: [facility] [employer] 06-24-2022 10:02-0400 Body weight 78.47 kg Pardeep Infante DO Work Phone: [employer] [facility] 06-23-2022 23:00-0400 Diastolic blood pressure 75 mm[Hg] [employer] 06-23-2022 23:00-0400 Systolic blood pressure 115 mm[Hg] [employer] [facility] 06-23-2022 18:15-0400 SaO2% (BldA) [Mass fraction] 94 % [id number] Media [facility] 06-23-2022 12:07-0400 Body mass index (BMI) [Ratio] 26.3 kg/m2 [id number] 06-23-2022 12:07-0400 Body temperature 99.3 [degF] [employer] 06-23-2022 12:07-0400 Body weight 78.47 kg [id number] Media [facility] [employer] 06-23-2022 12:07-0400 Heart rate 98 /min [facility] [employer] 06-23-2022 12:07-0400 Respiratory rate 18 /min [facility] [employer] 06-20-2022 12:27-0400 Body height 172.[address] [facility] [employer] 06-20-2022 12:27-0400 Body mass index (BMI) [Ratio] 26.3 kg/m2 [facility] [employer] 06-20-2022 12:27-0400 Body temperature 98.29 [degF] [facility] [employer] 06-20-2022 12:27-0400 Body weight 78.[address] [facility] [employer] 06-20-2022 12:27-0400 Diastolic blood pressure 83 mm[Hg] [facility] [employer] 06-20-2022 12:27-0400 Heart rate 94 /min [facility] [employer] 06-20-2022 12:27-0400 Respiratory rate 16 /min [facility] [employer] 06-20-2022 12:27-0400 SaO2% (BldA) [Mass fraction] 97 % [facility] [employer] 06-20-2022 12:27-0400 Systolic blood pressure 145 mm[Hg] [facility] 10-13-2020 18:28-0500 BP Diastolic 90 mm[Hg] [place], [place] 10-13-2020 18:28-0500 BP Systolic 139 mm[Hg] [facility] , [place] 10-13-2020 18:28-0500 Pulse (Heart Rate) 103 /min [facility] 10-13-2020 18:28-0500 Pulse Oximetry 94 % [place], [place] 10-13-2020 18:28-0500 Respiratory Rate 16 /min [facility] 10-13-2020 17:54-0500 Body Temperature 98.4 [degF] [facility] [place] 10-13-2020 12:21-0500 BMI (Body Mass Index) 25.46 kg/m2 [facility] [place] 10-13-2020 12:21-0500 Body weight 74.84 [facility] [place] 10-13-2020 12:21-0500 Height 171.5 cm [facility] , [place] 09-08-2020 13:45-0400 BP Diastolic 74 mm[Hg] [facility] , [place] 09-08-2020 13:45-0400 BP Systolic 146 mm[Hg] [facility] , [place] 09-08-2020 13:45-0400 Pulse (Heart Rate) 84 /min [facility], [place] 09-08-2020 13:45-0400 Pulse Oximetry 96 % [facility] , [place] 09-08-2020 13:45-0400 Respiratory Rate 18 /min [facility] 09-08-2020 13:13-0400 Body Temperature 97.39 [degF] [facility] 09-08-2020 11:39-0400 BMI (Body Mass Index) 26.08 kg/m2 [facility] 09-08-2020 11:39-0400 Body weight 76.[address] [facility] , [place] 09-08-2020 11:39-[address] [facility] , [place] 08-11-2020 12:06-0400 BMI (Body Mass Index) 25.09 kg/m2 [facility] 08-11-2020 12:06-0400 Body Temperature 98.01 [degF] [facility] 08-11-2020 12:06-0400 Body weight 74.[address] [facility] , [place] 08-11-2020 12:06-0400 BP Diastolic 84 mm[Hg] [facility] [place] [facility] [place] 08-11-2020 12:06-0400 BP Systolic 175 mm[Hg] [facility] , [place] 08-11-2020 12:06-[address] [facility] , [place] 08-11-2020 12:06-0400 Pulse (Heart Rate) 95 /min [facility] 08-11-2020 12:06-0400 Pulse Oximetry 96 % [place], [place] 08-11-2020 12:06-0400 Respiratory Rate 18 /min [facility], [place] 09-30-2019 11:08-0500 BMI (Body Mass Index) 25.09 kg/m2 [facility] 09-30-2019 11:08-0500 Body Temperature 98.8 [degF] [facility], [place] 09-30-2019 11:08-0500 Body weight 74.84 kg [place], [place] 09-30-2019 11:08-0500 BP Diastolic 73 mm[Hg] [facility] , [place] 09-30-2019 11:08-0500 BP Systolic 127 mm[Hg] [facility] , [place] 09-30-2019 11:08-0500 Pulse (Heart Rate) 91 /min [facility] 09-30-2019 11:08-0500 Pulse Oximetry 96 % [place], [place] 09-30-2019 11:08-0500 Respiratory Rate 18 /min [facility] 09-28-2019 12:27-0500 BMI (Body Mass Index) 25.09 kg/m2 [facility] 09-28-2019 12:27-0500 Body Temperature 99.39 [degF] [facility] 09-28-2019 12:27-0500 Body weight 74.84 kg [facility] , [place] 09-28-2019 12:27-0500 BP Diastolic 92 mm[Hg] [facility] , [place] 09-28-2019 12:27-0500 BP Systolic 150 mm[Hg] [facility] , [place] 09-28-2019 12:27-0500 Pulse Oximetry 97 % [facility] [place] 09-28-2019 12:27-0500 Respiratory Rate 18 /min [facility] HESTELITA Encounters Encounter Date Encounter Type Care Provider Facility Start: 08-15-2024 End: 08-17-2024 [facility] Start: 08-15-2024 End: 08-17-2024 Subsequent hospital visit by physician Amanda Daniel Scan Room [facility] CT Scan Comment on above: Arthropathy of ankle and foot Start: 08-04-2024 End: 08-04-2024 Emergency department patient visit L[facility] Start: 06-20-2024 End: 06-20-2024 Office outpatient visit 15 minutes Cristopher Moreira MD Work Phone: [facility] Comment on above: S/P Left tibiotaloca lcaneal arthrodesis (Primary Dx); Chronic pain in left foot; Arthritis of first metatarsophalangeal (MTP) joint of left foot Start: 06-20-2024 ambulatory [facility] Start: 06-20-2024 End: 06-20-2024 Subsequent hospital visit by physician Cristopher Moreira MD Work Phone: [facility] Comment on above: Arrived Start: 06-13-2024 ambulatory [facility] Start: 06-10-2024 End: 06-10-2024 ambulatory ABBEY Adkins [facility] Start: 04-23-2024 End: 04-24-2024 ambulatory Alexis Delaney MD Facility:[facility] Start: 04-22-2024 End: 04-23-2024 Emergency department patient visit [facility] Start: 04-16-2024 End: 04-16-2024 ambulatory ABBEY Adkins [facility] Start: 04-16-2024 End: 04-16-2024 Subsequent hospital visit by physician Ibis Quesada PTA [facility] Comment on above: Arrived Start: 04-09-2024 End: 04-09-2024 ambulatory [facility] Start: 04-04-2024 End: 04-04-2024 ambulatory [facility] Start: 04-04-2024 End: 04-04-2024 Subsequent hospital visit by physician Vimal Mina [facility] Comment on above: Arrived Start: 04-02-2024 End: 04-02-2024 ambulatory [facility] Start: 03-26-2024 End: 03-26-2024 ambulatory [facility] Start: 03-21-2024 End: 03-21-2024 ambulatory [facility] Start: 03-19-2024 End: 03-19-2024 Subsequent hospital visit by physician Anand Cazares PT [facility] Start: 03-14-2024 End: 03-14-2024 ambulatory [facility] Start: 03-12-2024 End: 03-12-2024 Subsequent hospital visit by physician Ibis Quesada PTA [facility] Start: 03-07-2024 End: 03-07-2024 ambulatory [facility] Start: 03-05-2024 End: 03-05-2024 Subsequent hospital visit by physician Ibis Quesada PTA [facility] Start: 02-29-2024 End: 02-29-2024 ambulatory [facility] Start: 02-12-2024 End: 02-12-2024 ambulatory Alex Ignacio MD Facility:[facility] Start: 01-18-2024 End: 01-18-2024 Office outpatient visit 15 minutes Cristopher Moreira MD Work Phone: [facility] Comment on above: Chronic pain in left foot (Primary Dx); S/P Left tibiotalocalcaneal arthrodesis; Arthritis of first metatarsophalangeal (MTP) joint of left foot Start: 01-18-2024 ambulatory CRISTOPHER MOREIRA Facility:[facility] Start: 01-01-2024 ambulatory SELF SELF Facility:[facility] Start: 01-01-2024 ambulatory [facility] Start: 12-14-2023 [facility] Start: 11-24-2023 ambulatory [facility] Start: 11-23-2023 [facility] Start: 10-25-2023 End: 10-25-2023 [facility]ulatory [facility] Start: 10-25-2023 End: 10-25-2023 Subsequent hospital visit by physician Vimal Mina [facility] Comment on above: Arrived Start: 10-04-2023 End: 10-04-2023 ambulatory [facility] Start: 09-29-2023 End: 09-29-2023 ambulatory [facility] Start: 09-28-2023 End: 09-28-2023 ambulatory [facility] Start: 09-26-2023 ambulatory [facility] Start: 09-14-2023 End: 09-14-2023 Office outpatient visit 25 minutes Majo Nelson APRN-PHYSICAL MEDICINE SPECIALIST Work Phone: [facility] Comment on above: Left ankle pain, uns pecified chronicity (Primary Dx) Start: 09-14-2023 End: 09-14-2023 Subsequent hospital visit by physician Majo Nelson APRN-PHYSICAL MEDICINE SPECIALIST Work Phone: [facility] Comment on above: Arrived Start: 09-14-2023 ambulatory [facility] Facility:[facility] Start: 09-08-2023 End: 09-08-2023 ambulatory [facility] Start: 09-04-2023 End: 09-04-2023 ambulatory [facility] Start: 09-01-2023 End: 09-01-2023 ambulatory [facility] Start: 08-30-2023 End: 08-30-2023 ambulatory [facility] Start: 08-21-2023 End: 08-21-2023 ambulatory [facility] JUAN ALBERTO [facility] Start: 08-02-2023 Telephone encounter Cristopher maloney MD Work Phone: Central Scheduling Comment on above: Order Request Start: 07-01-2023 End: 07-01-2023 Emergency department patient visit Nadege Muñoz DO Work Phone: [facility] ED Comment on above: Acute on chronic mid line low back pain without sciatica (Primary Dx) Start: 06-15-2023 End: 06-15-2023 Postop follow up visit related to original px Majo Pj Tika OUTSOLE COMPRESSOR-PHYSICAL MEDICINE SPECIALIST Work Phone: [facility] [place] Comment on above: Left ankle pain, uns pecified chronicity (Primary Dx) Start: 06-15-2023 End: 06-15-2023 Subsequent hospital visit by physician Majo Nelson OUTSOLE COMPRESSOR-PHYSICAL MEDICINE SPECIALIST Work Phone: [facility] Comment on above: Arrived Start: 05-04-2023 End: 05-04-2023 Postop follow up visit related to original px Majo Pj Tika OUTSOLE COMPRESSOR-PHYSICAL MEDICINE SPECIALIST Work Phone: [facility] Comment on above: Arthritis of left an kle (Primary Dx) Start: 05-04-2023 End: 05-04-2023 Subsequent hospital visit by physician Majo Nelson OUTSOLE COMPRESSOR-PHYSICAL MEDICINE SPECIALIST Work Phone: [facility] [place] Comment on above: Arrived Start: 03-16-2023 End: 03-16-2023 Postop follow up visit related to original px Majo L Phelps OUTSOLE COMPRESSOR-PHYSICAL MEDICINE SPECIALIST Work Phone: [facility] [place] Comment on above: Arthritis of left an kle (Primary Dx) Start: 03-14-2023 Telephone encounter Cristopher maloney MD Work Phone: [facility] Comment on above: Order Request Start: 02-28-2023 End: 03-01-2023 Evaluation and management of inpatient Cristopher Moreira MD Work Phone: [phone] Comment on above: Arthritis of left an kle Start: 02-28-2023 End: 03-01-2023 Preprocedural examination done Cristopher Moreira MD Work Phone: [facility] Start: 02-22-2023 End: 02-22-2023 Office outpatient visit 25 minutes Carissa Noel OUTSOLE COMPRESSOR-PHYSICAL MEDICINE SPECIALIST Work Phone: Pre-Procedure Evaluation and Assessment [facility]patient [facility] Comment on above: Pre-op evaluation (P rimary Dx); Essential hypertension; Alcohol use; RLS (restless legs syndrome); Lumbar radiculopathy; Hyponatremia Start: 02-22-2023 End: 02-22-2023 Preprocedural examination done Carissa Noel APRN-PHYSICAL MEDICINE SPECIALIST Work Phone: Pre-Procedure Evaluation and Assessment [facility]patient [facility] Start: 02-13-2023 End: 02-13-2023 Office outpatient visit 25 minutes Cristopher Moreira MD Work Phone: Sports Medicine [facility] Comment on above: 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); Arthritis of left subtalar joint; Arthritis of first metatarsophalangeal (MTP) joint of left foot Start: 02-13-2023 End: 02-13-2023 Subsequent hospital visit by physician Cristopher Moreira MD Work Phone: Imaging [facility] Comment on above: Arrived Start: 02-06-2023 End: 02-06-2023 Subsequent hospital visit by physician [facility] Start: 01-30-2023 End: 01-30-2023 Subsequent hospital visit by physician [facility] Start: 01-16-2023 End: 01-16-2023 Subsequent hospital visit by physician [facility] Start: 01-12-2023 End: 01-12-2023 Postop follow up visit related to original px Majo Nelson OUTSOLE COMPRESSOR-PHYSICAL MEDICINE SPECIALIST Work Phone: [facility] [place] Comment on above: Postop check (Primar y Dx); Staphylococcal arthritis of left ankle; Arthritis of left subtalar joint Start: 01-11-2023 End: 01-12-2023 Emergency department patient visit Landen Mike MD Work Phone: [facility] ED Comment on above: Dyspnea, unspecified type (Primary Dx) Start: 01-09-2023 End: 01-09-2023 Subsequent [facility] Start: 01-03-2023 Telephone encounter Cristopher maloney MD Work Phone: Central Scheduling Comment on above: Medication Problem ( Call back ); Advice Only Start: 12-30-2022 End: 01-02-2023 Evaluation and management of inpatient Cristopher Moreira MD Work Phone: [phone] Comment on above: Chronic osteomyeliti s of left ankle Start: 12-22-2022 End: 12-22-2022 Subsequent hospital visit by physician Cristopher Moreira MD Work Phone: [facility] [place] Comment on above: Arrived Start: 12-08-2022 End: 12-08-2022 Subsequent hospital visit by physician [facility] [address] [facility] ([facility]) Comment on above: Septic arthritis of left ankle, due to unspecified organism (HCC) (Primary Dx) Start: 12-07-2022 End: 12-07-2022 Subsequent hospital visit by physician [facility] [address] [facility] ([facility]) Comment on above: Septic arthritis of left ankle, due to unspecified organism (HCC) (Primary Dx) Start: 12-06-2022 End: 12-06-2022 Subsequent hospital visit by physician [facility] [address] [facility] ([facility]) Comment on above: Septic arthritis of left ankle, due to unspecified organism (HCC) (Primary Dx) Start: 12-05-2022 End: 12-05-2022 Subsequent hospital visit by physician [facility] [address] [facility] ([facility]) Comment on above: Septic arthritis of left ankle, due to unspecified organism (HCC) (Primary Dx) Start: 12-04-2022 End: 12-04-2022 Subsequent hospital visit by physician [facility] [address] [facility] ([facility]) Comment on above: Septic arthritis of left ankle, due to unspecified organism (HCC) (Primary Dx) Start: 12-03-2022 End: 12-03-2022 Subsequent hospital visit by physician [facility] Op Treatment [address] [facility] ([facility]) Comment on above: Septic arthritis of left ankle, due to unspecified organism (HCC) (Primary Dx) Start: 12-02-2022 End: 12-02-2022 Subsequent hospital visit by physician [facility] Op Treatment [address] [facility] ([facility]) Comment on above: Septic arthritis of left ankle, due to unspecified organism (HCC) (Primary Dx) Start: 12-01-2022 End: 12-01-2022 Subsequent hospital visit by physician [facility] Op Treatment [address] [facility] ([facility]) Comment on above: Septic arthritis of left ankle, due to unspecified organism (HCC) (Primary Dx) Start: 11-30-2022 End: 11-30-2022 Subsequent hospital visit by physician [facility] Op Treatment [address] ([place]B) Comment on above: Septic arthritis of left ankle, due to unspecified organism (HCC) (Primary Dx) Start: 11-29-2022 End: 11-29-2022 Subsequent hospital visit by physician [facility] Op Treatment [address] ([place]) Comment on above: Septic arthritis of left ankle, due to unspecified organism (HCC) (Primary Dx) Start: 11-28-2022 End: 11-28-2022 Subsequent hospital visit by physician [facility] Op Treatment [address] [facility] ([facility]B) Comment on above: Septic arthritis of left ankle, due to unspecified organism (HCC) (Primary Dx) Start: 11-27-2022 End: 11-27-2022 Subsequent hospital visit by physician [facility] Op Treatment [address] [facility] ([facility]) Comment on above: Septic arthritis of left ankle, due to unspecified organism (HCC) (Primary Dx) Start: 11-26-2022 End: 11-26-2022 Subsequent hospital visit by physician [facility] Op Treatment [address] ([place]) Comment on above: Septic arthritis of left ankle, due to unspecified organism (HCC) (Primary Dx) Start: 11-25-2022 End: 11-25-2022 Subsequent hospital visit by physician Akil Saini DPM Work Phone: [facility] Comment on above: Septic arthritis of left ankle, due to unspecified organism (HCC) (Primary Dx); Posterior tibial tendinitis of left leg Start: 10-24-2022 End: 10-24-2022 Subsequent hospital visit by physician Estuardo Munoz PT [facility] Physical Therapy Comment on above: Arrived Start: 08-09-2022 End: 08-11-2022 Evaluation and management of inpatient DUANE BRAGA [facility] Start: 07-29-2022 End: 07-29-2022 Subsequent [facility] visit [facility] Comment on above: Septic arthritis of left ankle, due to unspecified organism (HCC) Start: 07-11-2022 End: 07-11-2022 Subsequent hospital visit by physician [facility] Laboratory Comment on above: Septic arthritis of left ankle, due to unspecified organism (HCC) Start: 07-09-2022 End: 07-09-2022 Subsequent hospital visit by physician [facility] Laboratory Comment on above: Septic arthritis of left ankle, due to unspecified organism (HCC) Start: 07-07-2022 End: 07-07-2022 Subsequent hospital visit [facility] Comment on above: Septic arthritis of left ankle, due to unspecified organism (HCC) Start: 07-05-2022 End: 07-06-2022 ambulatory ROM TEJEDA [facility] Start: 07-05-2022 End: 07-05-2022 Subsequent hospital visit [facility] Comment on above: Septic arthritis of left ankle, due to unspecified organism (HCC) Start: 07-04-2022 End: 07-04-2022 Emergency department patient visit [facility] ED Comment on above: Post-op pain (Primar y Dx) Start: 06-24-2022 End: 06-26-2022 Evaluation and management of inpatient PARDEEP INFANTE [facility] Start: 06-24-2022 End: 06-26-2022 Evaluation and management of inpatient Pardeep Infante DO Work Phone: [address] Ortho/Med Surg Comment on above: Post-op pain (Primar y Dx); Septic arthritis of left ankle, due to unspecified organism (HCC) Start: 06-23-2022 End: 06-24-2022 Emergency department patient visit [facility] ED Comment on above: Septic arthritis of left ankle, due to unspecified organism (HCC) (Primary Dx) Start: 06-20-2022 End: 06-20-2022 Emergency department patient visit [facility] ED Comment on above: Chronic pain of left ankle (Primary Dx) Start: 09-15-2021 ambulatory TYRELL WEINBERG Facility: [facility] Start: 07-13-2021 End: 07-13-2021 ambulatory [facility] Facility:[facility] Start: 06-29-2021 End: 06-29-2021 Subsequent hospital visit by [facility] Start: 05-19-2021 ambulatory OTHER [facility] Facility:[facility] Start: 05-19-2021 ambulatory SOL Laddi lity:[facility] Start: 10-13-2020 End: 10-13-2020 Evaluation and management of inpatient Yovanny Cunha Work Phone: [facility] Comment on above: Postoperative pain ( Primary Dx) Start: 10-06-2020 End: 10-10-2020 Subsequent hospital visit by physician Amanda Covid19 Pat Screening Schedule [facility] Comment on above: Pre-op testing Start: 09-08-2020 End: 09-08-2020 Subsequent hospital visit by physician Aroldo Montejo Work Phone: [facility] Start: 08-11-2020 End: 08-11-2020 Subsequent hospital visit by physician Aroldo Mnotejo Work Phone: [facility] Start: 06-17-2020 End: 06-17-2020 Subsequent hospital visit by physician [facility] Lab Drawing Room [facility] Laboratory Comment on above: Arrived Start: 05-25-2020 End: 05-27-2020 Subsequent hospital visit by physician [facility] Mri Scanner [facility] MRI Comment on above: Low back pain, unspe cified back pain laterality, unspecified chronicity, unspecified whether sciatica present Start: 05-18-2020 End: 05-18-2020 Subsequent hospital visit by physician [facility] Lab Drawing Room [facility] Comment on above: Arrived Start: 09-30-2019 End: 09-30-2019 Emergency department patient visit [facility] ED Comment on above: Cough (Primary Dx) Start: 09-28-2019 End: 09-28-2019 Emergency department patient visit [facility] ED Comment on above: Cough (Primary Dx) Start: 07-31-2019 End: 07-31-2019 Subsequent hospital visit by physician [facility]imal [facility]ina [facility] Comment on above: No Show Start: 07-29-2019 End: 07-29-2019 Subsequent hospital visit by physician Vimal [facility] Start: 07-24-2019 End: 07-24-2019 Subsequent hospital visit by physician Vimal [facility] Start: 07-08-2019 End: 07-08-2019 Subsequent hospital visit by physician [facility]imal [facility]ina [facility] Comment on above: Arrived Start: 07-03-2019 End: 07-03-2019 Subsequent hospital visit by physician [facility]imal [facility]ina [facility] Comment on above: Arrived Start: 07-01-2019 End: 07-01-2019 Subsequent hospital visit by physician Vimal [facility]ina [facility] Comment on above: Arrived Start: 06-24-2019 End: 06-24-2019 Subsequent hospital visit by physician Vimal [facility]ina [facility] Comment on above: Arrived Start: 10-29-2018 End: 10-29-2018 Patient encounter procedure MAIRA YOUSIF Facility:[facility] Procedures Date Procedure Procedure Detail Performing Clinician Start: 08-15-2024 Ct lower extremity w /o contrast material Anant Malik DPM Work Phone: Start: 06-20-2024 Radex ankle complete minimum 3 views Cristopher Moreira MD Work Phone: Start: 09-14-2023 Radex ankle complete minimum 3 views Majo Nelson OUTSOLE COMPRESSOR-PHYSICAL MEDICINE SPECIALIST Work Phone: Start: 07-01-2023 Ct head/brain w/o co ntrast material Nadege J Muñoz DO Work Phone: Start: 07-01-2023 End: 07-01-2023 Ct cervical spine w/o contrast material Nadege J Muñoz DO Work Phone: Start: 06-15-2023 Radex ankle complete minimum 3 views Majo Nelson OUTSOLE COMPRESSOR-PHYSICAL MEDICINE SPECIALIST Work Phone: Start: 05-04-2023 Radex ankle complete minimum 3 views Majo Nelson OUTSOLE COMPRESSOR-PHYSICAL MEDICINE SPECIALIST Work Phone: Start: 03-16-2023 Cast sup sht leg spl nt plstr Majo Nelson OUTSOLE COMPRESSOR-PHYSICAL MEDICINE SPECIALIST Work Phone: Start: 03-01-2023 CBC AND ELECTRONIC DIFF Chaparro Hickman MD Work Phone: Start: 03-01-2023 Complete blood count with white cell differential, automated Chaparro Hickman MD Work Phone: Start: 03-01-2023 Creatinine blood Raul Hickman MD Work Phone: Start: 02-28-2023 Culture fngi mold/ye ast prsmptv oth xcpt blood Cristopher Moreira MD Work Phone: Start: 02-28-2023 End: 02-28-2023 Arthroscopy ankle surgical w/ankle arthrodesis Cristopher Moreira MD Work Phone: Start: 02-28-2023 End: 02-28-2023 Bone graft any donor area major/large Cristopher Moreira MD Work Phone: Start: 02-28-2023 US Unspecified body region during surgery Baljit Nuñez MD Work Phone: Start: 02-28-2023 Creatinine blood Cristopher Moreira MD Work Phone: Start: 02-13-2023 End: 02-13-2023 Radex foot complete minimum 3 views Cristopher Moreira MD Work Phone: Start: 02-06-2023 Basic metabolic pane l calcium total Queenie R Freier Work Phone: Start: 01-30-2023 Blood count complete auto&auto difrntl wbc Queenie R Freier Work Phone: Start: 01-16-2023 Basic metabolic pane l calcium total Queenie R Freier Work Phone: Start: 01-11-2023 Radiologic exam ches t single view Landen Mike MD Work Phone: Start: 01-11-2023 COVID-19, RAPID Landen Valdes MD Work Phone: Start: 01-11-2023 Iaadiadoo influenza Cristela Valdes MD Work Phone: Start: 01-09-2023 Basic metabolic pane l calcium total Queenie R Freier Work Phone: Start: 01-02-2023 TTE w or wo fol wcon,Doppler Damaso Dill MD Work Phone: Start: 01-02-2023 Creatinine blood Damaso Dill MD Work Phone: Start: 01-01-2023 Creatinine blood Damaso Dill MD Work Phone: Start: 12-31-2022 Culture bacterial bl ood aerobic w/id isolates Damaso Dill MD Work Phone: Start: 12-31-2022 Creatinine blood Damaso Dill MD Work Phone: Start: 12-30-2022 End: 12-30-2022 Culture fngi mold/yeast prsmptv oth xcpt blood Cristopher Moreira MD Work Phone: Start: 12-30-2022 End: 12-30-2022 Arthroscopy ankle surgical debridement limited Cristopher Moreira MD Work Phone: Start: 12-30-2022 End: 12-30-2022 Incision leg/ankle Cristopher Moreira MD Work Phone: Start: 12-30-2022 End: 12-30-2022 Insj non-biodegradable drug delivery implant Cristopher Moreira MD Work Phone: Start: 12-30-2022 US Unspecified body region during surgery Kimberly Murphy MD Start: 12-30-2022 C-reactive protein Cristopher Moreira MD Work Phone: Start: 12-30-2022 Comprehensive metabo lic panel Cristopher Moreira MD Work Phone: Start: 12-22-2022 Radex ankle complete minimum 3 views Cristopher Moreira MD Work Phone: Start: 11-25-2022 Blood count complete auto&auto difrntl wbc Akil Saini DPM Work Phone: Start: 11-25-2022 End: 11-25-2022 C-reactive protein Akil Lucille Parveen DPM Work Phone: Start: 11-25-2022 DIFFERENTIAL, BODY FLUID Akil Lucille Parveen DPM Work Phone: Start: 07-29-2022 C-reactive protein Erlinda e Truss OUTSOLE COMPRESSOR - PHYSICAL MEDICINE SPECIALIST Work Phone: Start: 07-11-2022 C-reactive protein Erlinda e Truss OUTSOLE COMPRESSOR - PHYSICAL MEDICINE SPECIALIST Work Phone: Start: 07-09-2022 C-reactive protein Erlinda e Truss OUTSOLE COMPRESSOR - PHYSICAL MEDICINE SPECIALIST Work Phone: Start: 07-07-2022 C-reactive protein Erlinda e Truss OUTSOLE COMPRESSOR - PHYSICAL MEDICINE SPECIALIST Work Phone: Start: 07-05-2022 C-reactive protein Erlinda e Truss OUTSOLE COMPRESSOR - PHYSICAL MEDICINE SPECIALIST Work Phone: Start: 07-04-2022 Ct lower extremity w/contrast material Ariel A Hammuda PA-C Work Phone: Start: 07-04-2022 Basic metabolic pane l calcium total Ariel A Hammuda PA-C Work Phone: Start: 07-04-2022 Radex ankle complete minimum 3 views Ariel A Hammuda PA-C Work Phone: Start: 06-26-2022 BASIC METABOLIC PANE L W/ REFLEX TO MG FOR LOW K Mumtaz Malvin DO Work Phone: Start: 06-25-2022 BASIC METABOLIC PANE L W/ REFLEX TO MG FOR LOW K Kiel Mir DO Work Phone: Start: 06-25-2022 Drug screen quantita tive vancomycin Kiel Mir DO Work Phone: Start: 06-24-2022 Cul prsmptv pthgnc o rganism scrn w/colony estimj Pardeep Infante DO Work Phone: Start: 06-24-2022 Cell count misc body fluids w/differential count Criss Mejia Smith DO Work Phone: Start: 06-24-2022 CULTURE, BLOOD 1 Marycarmen wright DO Work Phone: Start: 06-24-2022 Urnls dip stick/tabl et rgnt auto w/o microscopy Criss Mejia Smith DO Work Phone: Start: 06-24-2022 Ecg routine ecg w/le ast 12 lds i&r only Criss Mejia Smith DO Work Phone: Start: 06-24-2022 Cul prsmptv pthgnc o rganism scrn w/colony estimj Criss Mejia Smith DO Work Phone: Start: 06-24-2022 Radex ankle complete minimum 3 views Criss Mejia Smith DO Work Phone: Start: 06-24-2022 Radiologic exam ches t single view Criss Mejia Smith DO Work Phone: Start: 06-24-2022 BASIC METABOLIC PANE L W/ REFLEX TO MG FOR LOW K Criss Mejia Smith DO Work Phone: Start: 06-24-2022 C-reactive protein Shelbie olmos Jackie Smith DO Work Phone: Start: 06-24-2022 Prothrombin time Christine Mejia Smith DO Work Phone: Start: 06-23-2022 Ct lower extremity w/contrast material Cassi Grullon OUTSOLE COMPRESSOR - PHYSICAL MEDICINE SPECIALIST Work Phone: Start: 06-23-2022 C-reactive protein Anabell Grullon OUTSOLE COMPRESSOR - PHYSICAL MEDICINE SPECIALIST Work Phone: Start: 06-23-2022 Comprehensive metabo lic panel Cassi Grullon OUTSOLE COMPRESSOR - PHYSICAL MEDICINE SPECIALIST Work Phone: Start: 06-29-2021 Basic metabolic pane l calcium total Buddhism R Weinberg DO Work Phone: Start: 10-13-2020 Radex shoulder 1 view D donna Cunha Work Phone: Start: 10-13-2020 Blood count hemoglobin Yovanny Alphonse Work Phone: Start: 10-06-2020 COVID-19 AMBULATORY Hugo s E Quinones Work Phone: Start: 09-08-2020 Fluoroscopy during operation Aroldo M Bahn Work Phone: Start: 08-11-2020 Fluoroscopy during operation Aroldo M Bahn Work Phone: Start: 06-17-2020 COVID-19, ANTIBODY, TOTAL Unknown Provider Result Start: 05-25-2020 Mri spinal canal lum bar w/o & w/contr matrl Sol Corrigan Work Phone: Start: 05-18-2020 Creatinine blood Benjam in Corrigan Work Phone: Start: 09-28-2019 Radiologic exam ches t 2 views Azul Carreon Work Phone: Plan of Treatment Date Care Activity Detail Author Start: 02-05-2025 ambulatory Ambulatory Facility:[facility] Start: 07-14-2024 COVID-19 Vaccine ( season) COVID-19 Vaccine ( season) [facility] Start: 07-14-2024 Influenza vaccination INFLUENZA VACCINE (#1) [facility] Start: 06-13-2024 Influenza vaccination [facility] Start: 04-23-2024 End: 04-23-2024 Patient encounter procedure 04/23/2024 12:[address] [facility] [address] [place] [address] [id number] [facility] Start: 04-18-2024 End: 04-18-2024 Patient encounter procedure [facility] Start: 04-16-2024 End: 04-16-2024 Patient encounter procedure [facility] Start: 04-11-2024 End: 04-11-2024 Patient encounter procedure [facility] Start: 04-10-2024 End: 04-10-2024 Patient encounter procedure 04/10/2024 3:30 PM EDT [facility] [address] [place] [id number] [facility] Start: 04-09-2024 End: 04-09-2024 Patient encounter procedure 04/09/2024 1:15 PM EDT [facility]ment [facility] [address] [place] [id number] [facility] Start: 04-04-2024 End: 04-04-2024 [facility] Start: 04-02-2024 End: 04-02-2024 Patient encounter [facility] Start: 03-28-2024 End: 03-28-2024 Patient encounter [facility] Start: 03-26-2024 End: 03-26-2024 Patient encounter [facility] Start: 03-21-2024 End: 03-21-2024 Patient encounter procedure 03/21/2024 2:[address] [facility] [address] [place] [id number] [facility] Start: 03-19-2024 End: 03-19-2024 Patient encounter procedure 03/19/2024 2:45 PM EDT [facility]ointment [facility] [address] [place] [id number] [facility] Start: 03-14-2024 End: 03-14-2024 Patient encounter procedure 03/14/2024 1:00 PM EDT Appointment [facility] [address] [place] [id number] [facility] Start: 03-12-2024 End: 03-12-2024 Patient encounter procedure 03/12/2024 1:45 PM EDT Appointment [facility] [address] [place] [id number] Ibis [place] PTA Print PT sched. [facility] Physical Therapy Comment on above: Print PT sched. Start: 01-18-2024 End: 01-18-2024 Patient encounter procedure 01/18/2024 11:45 AM EST Office Visit [facility] [address] [address] Cristopher Moreira MD [address] [place] [address] (Fax) [facility] [place] Start: 10-09-2023 Annual Wellness Visit (Medicare) Annual Wellness Visit (Medicare) [facility] Start: 09-14-2023 End: 09-14-2023 Patient encounter procedure 09/14/2023 1:30 PM EDT Office Visit [facility] [address] [address] Majo Nelson, OUTSOLE COMPRESSOR-PHYSICAL MEDICINE SPECIALIST [address] [place] [address] (Fax) [facility] [place] Start: 07-14-2023 COVID-19 VACCINE ( season) COVID-19 VACCINE ( season) [facility] Start: 07-14-2023 COVID-19 Vaccine ( season) COVID-19 Vaccine ( season) [facility] Start: 07-14-2023 Influenza vaccination [facility] Start: 06-15-2023 End: 06-15-2023 Patient encounter procedure 06/15/2023 1:30 PM EDT Office Visit [facility] [address] [address] Majo Nelson, OUTSOLE COMPRESSOR-PHYSICAL MEDICINE SPECIALIST [address] [place] [address] [facility] [place] Start: 06-13-2023 Influenza vaccination Flu vaccine (#1) [facility] Start: 04-13-2023 End: 04-13-2023 Patient encounter procedure 04/13/2023 Office Visit Sports Medicine Majo Nelson, OUTSOLE COMPRESSOR-PHYSICAL MEDICINE SPECIALIST [address] [place] [phone] (Fax) [facility] [place] Start: 04-06-2023 End: 04-06-2023 Patient encounter procedure 04/06/2023 Office Visit Sports Majo Banerjee, OUTSOLE COMPRESSOR-PHYSICAL MEDICINE SPECIALIST [address] [place] [phone] [facility] Start: 03-16-2023 End: 03-16-2023 Patient encounter procedure 03/16/2023 Office Visit Sports Majo Banerjee OUTSOLE COMPRESSOR-PHYSICAL MEDICINE SPECIALIST [address] [place] [address] (Fax) [facility] [place] Start: 02-28-2023 End: 02-28-2023 Arthrodesis subtalar ARTHRODESIS TARSAL JOINT 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 02/28/2023 10:05 AM EDT [facility] Start: 02-28-2023 End: 02-28-2023 Arthroscopy ankle surgical w/ankle arthrodesis ARTHROSCOPY ANKLE W/ ARTHRODESIS 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 02/28/2023 10:05 AM EDT [facility] Start: 02-28-2023 End: 02-28-2023 Bone graft any donor area major/large HARVEST GRAFT BONE LARGE DONOR AREA 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 02/28/2023 10:05 AM EDT [facility] Start: 02-28-2023 End: 02-28-2023 Evaluation and management of inpatient [facility] Comment on above: Arthritis of left ankle ARTHROSCOPY ANKLE W/ ARTHRODESIS Start: 02-22-2023 End: 02-23-2024 Standard ECG ECG ECG Routine Pre-op evaluation Expected: 02/22/2023, Expires: 02/23/2024 [facility] Comment on above: Expected: 02/22/2023, Expires: Start: 02-22-2023 End: 02-22-2023 ambulatory 02/22/2023 Pre-Operative Assessment Multispecialty Pre-Procedure Evaluation and Assessment Outpatient Care [facility] Start: 02-14-2023 End: 02-14-2023 ambulatory 02/14/2023 Telemed Clin Support Multispecialty Comprehensive Pre Anesthesia Center [facility] Start: 02-13-2023 End: 02-13-2023 Patient encounter procedure 02/13/2023 Office Visit Cristopher Allred MD [address] [place] [address] [facility] Start: 02-09-2023 End: 02-09-2023 Patient encounter procedure 02/09/2023 Office Visit Majo Lynn, OUTSOLE COMPRESSOR-PHYSICAL MEDICINE SPECIALIST [address] [place] [address] [facility] Start: 02-08-2023 End: 02-08-2023 Telemedicine consultation with patient 02/08/2023 Telemedicine Infectious Diseases Barbie Mendoza, OUTSOLE COMPRESSOR-PHYSICAL MEDICINE SPECIALIST [address] [place] [phone] Infectious Diseases Care [facility] Start: 02-06-2023 End: 02-06-2023 Patient encounter procedure 02/06/2023 Office Visit Cristopher Allred MD [address] [place] [address] [facility] Medicine [facility] Start: 01-16-2023 Annual Wellness Visit (AWV) Annual Wellness Visit (AWV) [facility] Start: 01-12-2023 End: 01-12-2023 Patient encounter procedure 01/12/2023 Office Visit Majo Lynn, OUTSOLE COMPRESSOR-PHYSICAL MEDICINE SPECIALIST [address] [place] [address] [facility] Start: 12-28-2022 End: 12-28-2022 Arthroscopy ankle surgical debridement limited ARTHROSCOPY ANKLE W/ DEBRIDEMENT Septic arthritis of left ankle Chronic osteomyelitis of left ankle 12/28/2022 1:20 PM EST [facility] Start: 12-28-2022 End: 12-28-2022 Arthroscopy subtalar joint with debridement ARTHROSCOPY SUBTALAR JOINT W/ DEBRIDEMENT Septic arthritis of left ankle Chronic osteomyelitis of left ankle 12/28/2022 1:20 PM EST [facility] Start: 12-28-2022 End: 12-28-2022 Evaluation and management of inpatient [facility] Comment on above: Septic arthritis of left ankle ARTHROSCOPY ANKLE W/ DEBRIDEMENT Start: 12-28-2022 End: 12-28-2022 Incision leg/ankle I&D BONE CORTEX ANKLE LEG Septic arthritis of left ankle Chronic osteomyelitis of left ankle 12/28/2022 1:20 PM EST [facility] Start: 12-28-2022 End: 12-28-2022 Insj non-biodegradable drug delivery implant INSERTION IMPLANT NONBIODEGRADABLE DRUG DELIVERY Septic arthritis of left ankle Chronic osteomyelitis of left ankle 12/28/2022 1:20 PM EST [facility] Start: 12-23-2022 End: 12-23-2022 ambulatory 12/23/2022 Telemed Clin Support Multispecialty Comprehensive Pre Anesthesia Center at Start: 12-09-2022 End: 12-09-2022 Patient encounter procedure 12/09/[address] [facility] ([facility]) Start: 12-08-2022 Subsequent hospital visit by physician 12/08/2022 Hospital Encounter [facility] ([facility] Start: 12-08-2022 End: 12-08-2022 Patient encounter procedure 12/08/2022 Appointment Infusion Therapy [facility] ([facility] Start: 12-07-2022 End: 12-07-2022 Patient encounter procedure 12/07/2022 Appointment Infusion Therapy [facility] ([facility] Start: 12-06-2022 End: 12-06-2022 Patient encounter procedure 12/06/2022 Appointment Infusion Therapy [facility] ([facility] Start: 12-05-2022 Annual Wellness Visit (AWV) Annual Wellness Visit (AWV) [facility] Start: 12-05-2022 End: 12-05-2022 Patient encounter procedure 12/05/2022 Appointment Infusion Therapy [facility] ([facility] Start: 12-04-2022 End: 12-04-2022 Patient encounter procedure 12/04/2022 Appointment Infusion Therapy [facility] ([facility] Start: 12-03-2022 End: 12-03-2022 Patient encounter procedure 12/03/2022 Appointment [facility]fusion Therapy [facility] ([facility] Start: 12-02-2022 End: 12-02-2022 Patient encounter procedure 12/02/2022 Appointment Infusion Therapy [facility] ([facility] Start: 12-02-2022 Subsequent hospital visit by physician 12/02/2022 Hospital Encounter Infusion Therapy [facility] ([facility] Start: 12-01-2022 End: 12-01-2022 Patient encounter procedure 12/01/2022 Appointment Infusion Therapy [facility] ([facility] Start: 11-30-2022 End: 11-30-2022 Patient encounter procedure 11/30/2022 Appointment Infusion Therapy [facility] Start: 11-29-2022 End: 11-29-2022 Patient encounter procedure 11/29/2022 Appointment Infusion Therapy [facility] Start: 11-28-2022 End: 11-28-2022 Patient encounter procedure 11/28/2022 Appointment Infusion Therapy [facility] ([facility] Start: 11-27-2022 End: 11-27-2022 Patient encounter procedure 11/27/2022 Appointment Infusion Therapy [facility] Start: 11-26-2022 End: 11-26-2022 Patient encounter procedure 11/26/2022 Appointment Infusion Therapy [facility] Start: 11-25-2022 End: 11-25-2022 Arthrodesis subtalar FOOT ARTHRODESIS Posterior tibial tendinitis of left leg 11/25/2022 12:04 PM [facility] Start: 11-25-2022 End: 11-25-2022 Arthroscopy ankle surgical debridement limited ANKLE ARTHROSCOPY Posterior tibial tendinitis of left leg 11/25/2022 12:04 PM [facility] Start: 11-25-2022 End: 11-25-2022 Rpr primary disrupted ligament ankle collateral ANKLE LIGAMENT TENDON REPAIR Posterior tibial tendinitis of left leg 11/25/2022 12:04 PM [facility] Start: 11-25-2022 End: 11-25-2022 Tr/trnspl 1 tdn w/musc redirion/rerouting dp FOOT TENDON TRANSFER REPAIR Posterior tibial tendinitis of left leg 11/25/2022 12:04 PM [facility] Start: 09-28-2022 Annual Wellness Visit (AWV) Annual Wellness Visit (AWV) [facility] Start: 08-02-2022 End: 08-02-2022 Patient encounter procedure 08/02/2022 Office Visit Orthopedic Surgery Pardeep Infante DO [address] [place] [address] [facility] Start: 07-14-2022 Influenza vaccination [facility] Start: 07-12-2022 End: 07-12-2022 Patient encounter procedure 07/12/2022 Office Visit Orthopedic Surgery Pardeep Infante DO [address] [place] [address] [facility] Start: 07-05-2022 End: 07-05-2022 Patient encounter procedure 07/05/2022 Office Visit Orthopedic Surgery Pardeep Infante DO [address] [place] [address] [facility] Start: 06-13-2022 Influenza vaccination Flu vaccine (#1) [facility] Start: 10-09-2021 Creatinine measurement Creatinine monitoring [facility] [place] [place] Start: 10-09-2021 Potassium monitoring Potassium monitoring [facility] [place], [place] Start: 07-14-2021 Influenza vaccination Flu vaccine (#1) [employer] Work Phone: Start: 05-19-2021 COVID-19 Vaccine (2 - Booster for Delmer series) COVID-19 Vaccine (2 - Booster for Delmer series) [employer] Start: 05-18-2021 Creatinine measurement Creatinine monitoring [employer] [facility] Start: 10-13-2020 End: 10-13-2020 Hospital Encounter [facility] Comment on above: SHOULDER TOTAL ARTHROPLASTY REVERSE Start: 09-15-2020 End: 09-15-2020 Hospital Encounter [facility] Comment on above: SHOULDER TOTAL ARTHROPLASTY REVERSE Start: 08-09-2020 Annual Wellness Visit (AWV) Annual Wellness Visit (AWV) [facility] Start: 07-14-2020 Influenza vaccination Flu vaccine (#1) [email or web address] Start: 05-25-2020 End: 05-25-2020 Appointment 05/25/2020 Appointment Radiology [employer] [facility] Start: 02-29-2020 Creatinine measurement Creatinine monitoring [employer] [facility] Start: 02-29-2020 Creatinine monitoring Creatinine monitoring [employer] [facility] Start: 01-08-2020 Potassium monitoring Potassium monitoring [facility] Start: 11-14-2019 End: 11-14-2019 Appointment 11/14/2019 Appointment Radiology [employer] [facility] Start: 09-22-2019 Annual Wellness Visit (AWV) Annual Wellness Visit (AWV) [employer] [facility] Start: 08-12-2019 End: 08-12-2019 Appointment 08/12/2019 Appointment Physical Therapy Anand Cazares, PT [facility] Start: 08-07-2019 End: 08-07-2019 Appointment 08/07/2019 Appointment Physical Therapy Anand Cazares, PT [facility] Start: 2019 End: 2019 Appointment 2019 Appointment Physical Therapy Vimal Mina [facility] Start: 2019 Pneumococcal 65+ years Vaccine (1 - PCV) Pneumococcal 65+ years Vaccine (1 - PCV) [employer] Start: 2019 Pneumococcal 65+ years Vaccine (1 of 1 - PCV) Pneumococcal 65+ years Vaccine (1 of 1 - PCV) [employer] Start: 2019 Pneumococcal 65+ years Vaccine (1 of 1 - PPSV23) Pneumococcal 65+ years Vaccine (1 of 1 - PPSV23) [place], [place] Start: 2019 Pneumococcal 65+ years Vaccine (1 of 2 - PCV13) Pneumococcal 65+ years Vaccine (1 of 2 - PCV13) [place], [place] Start: 2019 Pneumococcal vaccination [facility] Start: 07-31-2019 End: 07-31-2019 Appointment 07/31/2019 Appointment Physical Therapy [facility] Start: 07-29-2019 End: 07-29-2019 Appointment 07/29/2019 Appointment Physical Therapy Vimal Mina [facility] Start: 07-24-2019 End: 07-24-2019 Appointment 07/24/2019 Appointment Physical Therapy Vimal Mina [facility] Start: 07-14-2019 Influenza vaccination Flu vaccine (#1) [place], [place] Start: 07-10-2019 End: 07-10-2019 Appointment 07/10/2019 Appointment Physical Therapy Vimal Mina [facility] Start: 07-08-2019 End: 07-08-2019 Appointment 07/08/2019 Appointment Physical Therapy Vimal Mina [facility] Start: 07-03-2019 End: 07-03-2019 Appointment 07/03/2019 Appointment Physical Therapy [facility]imal [facility]ina [facility] Start: 07-01-2019 End: 07-01-2019 Appointment 07/01/2019 Appointment Physical Therapy Vimal Mina [facility] Start: 06-26-2019 End: 06-26-2019 Appointment 06/26/2019 Appointment Physical Therapy Roxana Suazo PT [facility] Start: 06-21-2019 Annual Wellness Visit (AWV) Annual Wellness Visit (AWV) [place], [place] Start: 2017 Annual Wellness Visit (AWV) Annual Wellness Visit (AWV) [place] Start: 11-13-2015 DTaP/Tdap/Td vaccine (2 - Td or Tdap) DTaP/Tdap/Td vaccine (2 - Td or Tdap) [facility] Start: 2014 Respiratory Syncytial Virus (RSV) age 60 yrs+ (1 - 1-dose 60+ series) Respiratory Syncytial Virus (RSV) age 60 yrs+ (1 - 1-dose 60+ series) [facility] Start: 2014 Respiratory Syncytial Virus (RSV) or age 60 yrs+ (1 - 1-dose 60+ series) Respiratory Syncytial Virus (RSV) or age 60 yrs+ (1 - 1-dose 60+ series) [facility] Start: 11-14-2005 DTaP/Tdap/Td vaccine (1 - Tdap) DTaP/Tdap/Td vaccine (1 - Tdap) [facility] Start: 2004 Colon cancer screen colonoscopy Colon cancer screen colonoscopy [place], [place] Start: 2004 Prostate specific antigen measurement PROSTATE CANCER SCREENING DISCUSSION [facility] Start: 2004 Screening for malignant neoplasm of colon Colon cancer screen colonoscopy [place], [place] Start: 2004 Shingles Vaccine (1 of 2) Shingles Vaccine (1 of 2) [facility] Start: 2004 Zoster vaccine hzv live for subcutaneous use ZOSTER (SHINGLES) VACCINE (1 of 2) [facility] Start: 1999 Screening for malignant neoplasm of colon [facility] Start: 1994 Diabetes screen Diabetes screen [place], [place] Start: 1994 Lipid panel [facility] Start: 1994 Lipid screen Lipid screen [place], [place] Start: 1994 Prostate specific antigen measurement Prostate Specific Antigen (PSA) Screening or Monitoring [facility] Start: 1989 Diabetes screen Diabetes screen [facility] Start: 1973 DTaP/Tdap/Td vaccine (1 - Tdap) DTaP/Tdap/Td vaccine (1 - Tdap) [facility] Start: 1973 Third diphtheria, tetanus and acellular pertussis (DTaP) vaccination TDAP (ADULT) [facility] Start: 1972 Hepatitis C screening Hepatitis C screen [facility] Start: 1969 HIV screen HIV screen [place], [place] Start: 1969 HIV screening HIV screen [place], [place] Start: 1966 COVID-19 Vaccine (1) COVID-19 Vaccine (1) [facility] Work Phone: Start: 1966 Depression Screen Depression Screen [facility] Start: 1965 DTaP/Tdap/Td vaccine (1 - Tdap) DTaP/Tdap/Td vaccine (1 - Tdap) [place], [place] Start: 1960 Pneumococcal 65+ years Vaccine (1 - PCV) Pneumococcal 65+ years Vaccine (1 - PCV) [facility] Start: 02-02-1955 COVID-19 Vaccine (#1) COVID-19 Vaccine (#1) [facility] Start: 1954 Annual Wellness Visit (AWV) Annual Wellness Visit (AWV) [facility] Start: 1954 Hepatitis C screen Hepatitis C screen [place], [place] Start: 1954 Hepatitis C screening [facility] Start: 1954 Tetanus vaccination TETANUS [facility] ANAEROBE CULTURE [facility] ANAEROBE CULTURE [facility] Comment on above: Release Upon Ordering for 1 Occurrences starting 02/28/2023 Bacteria identified in Blood by Culture BLOOD CULTURE Microbiology Urgent 12/31/2022 1:36 PM EST [facility] Bacteria identified in Unspecified specimen by Culture BACTERIAL CULTURE AND DIRECT SMEAR, LESION, TISSUE, DEVICE Microbiology Routine 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 02/28/2023 12:10 PM EDT [facility] End: 08-11-2020 Blood glucose - POCT Blood glucose - POCT Point of Care Testing Routine One Time for 1 Occurrences starting 08/11/2020 until 08/11/2020 [place], [place] Comment on above: One Time for 1 Occurrences starting 07/15 until 08/11/2020 End: 09-08-2020 Blood glucose - POCT Blood glucose - POCT Point of Care Testing Routine One Time for 1 Occurrences starting 09/08/2020 until 09/08/2020 [place], [place] Comment on above: One Time for 1 Occurrences starting 08/14 until 09/08/2020 End: 01-02-2024 BMP WITHOUT GLUCOSE BMP WITHOUT GLUCOSE Lab Routine Chronic osteomyelitis of left ankle Twice a Week for 6 Occurrences starting 01/02/2023 until 01/02/2024 [facility] Comment on above: Twice a Week for 6 Occurrences starting 01/02/2023 until 01/02/2024 End: 06-27-2022 C-reactive protein C-Reactive Protein Lab Routine Q48H for 3 Days starting 06/25/2022 until 06/27/2022, 1 completed [employer] Phone: Comment on above: Q48H for 3 Days starting 06/25/2022 unti l 06/27/2022, 1 completed Cell Count with Differential, Body Fluid Cell Count with Differential, Body Fluid Lab Stat [employer] Label print 06/24/2022 7:20 AM EDT [employer] Work Phone: End: 01-02-2024 Complete blood count with white cell differential, automated CBC, EDIF, PLATELET Lab Routine Chronic osteomyelitis of left ankle Once a week for 6 Occurrences starting 01/02/2023 until 01/02/2024 [facility] Comment on above: Once a week for 6 Occurrences starting 0 01/02/2023 until 01/02/2024 End: 06-24-2022 Crystals, Body Fluid [employer] Phone: Comment on above: One Time for 1 Occurrences starting 06/13 until 06/24/2022 Crystals, Body Fluid [employer] Phone: Comment on above: Release Upon Ordering for 1 Occurrences starting 11/25/2022 End: 06-23-2022 Culture, Anaerobic and Aerobic [employer] Phone: Comment on above: One Time for 1 Occurrences starting 06/13 until 06/23/2022 Culture, Anaerobic a nd Aerobic Culture, Anaerobic and Aerobic Microbiology Stat [employer] Label print 06/24/2022 4:27 AM EDT [employer] Work Phone: Culture, Anaerobic a nd Aerobic Culture, Anaerobic and Aerobic Microbiology Routine Septic arthritis of left ankle, due to unspecified organism (HCC) 06/24/2022 11:42 AM EDT [employer] Phone: Culture, Body Fluid [employer] Phone: Comment on above: Release Upon Ordering for 1 Occurrences starting 11/25/2022 Culture, Tissue [employer] Phone: Comment on above: Release Upon Ordering for 1 Occurrences starting 11/25/2022 Differential, Body Fluid Differential, Body Fluid Lab Routine 11/25/2022 1:00 PM EST [employer] Phone: Fungus identified in Unspecified specimen by Culture [facility] Fungus identified in Unspecified specimen by Culture FUNGUS CULTURE Microbiology Routine 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 02/28/2023 12:10 PM EDT [facility] End: 11-25-2022 INITIATE PACU OXYGEN THERAPY PROTOCOL Initiate PACU Oxygen Therapy Protocol Respiratory Care Routine Continuous until discontinued starting 11/25/2022 [employer] Phone: Comment on above: Continuous until discontinued starting 0 11/25/2022 LAB INSTRUCTIONS LAB INSTRUCTION S Lab Routine Chronic osteomyelitis of left ankle Ordered: 01/02/2023 [facility] Comment on above: Ordered: 01/02/2023 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 [facility] 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 ACID FAST CULTURE, TISSUE Microbiology Routine 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 02/28/2023 12:10 PM EDT [facility] Mycobacterium sp identified in Unspecified specimen by Organism specific culture ACID FAST CULTURE Microbiology Routine Septic arthritis of left ankle Chronic osteomyelitis of left ankle 12/30/2022 3:53 PM EST [facility] Oxygen therapy [Minimum Data Set] Initiate Oxygen Therapy Protocol Respiratory Care Routine Daily until discontinued starting [facility]13[facility]2020 [facility] [place] Comment on above: Daily until discontinued starting 2019 Oxygen therapy [Minimum Data Set] Initiate Oxygen Therapy Protocol Respiratory Care Routine As Needed until discontinued starting 06/24/2022 [employer] Phone: Comment on above: As Needed until discontinued starting Oxygen therapy [Minimum Data Set] Initiate Oxygen Therapy Protocol Respiratory Care Routine As Needed until discontinued starting 06/24/2022 [employer] Phone: Comment on above: As Needed until discontinued starting End: 08-11-2020 , urine , urine Lab Routine One Time for 1 Occurrences starting 08/11/2020 until 08/11/2020 [facility] Comment on above: One Time for 1 Occurrences starting 07/15 until 08/11/2020 End: 09-08-2020 , urine , urine Lab Routine One Time for 1 Occurrences starting 09/08/2020 until 09/08/2020 [facility] Comment on above: One Time for 1 Occurrences starting 08/14 until 09/08/2020 End: 02-28-2023 RF Greater than 1 hour [facility] Comment on above: One Time for 1 Occurrences starting 02/11 until 02/28/2023 Spirometry panel Incentive sujit metry Respiratory Care Routine Every 2hr while awake until discontinued starting 10/13/2020 [facility] Comment on above: Every 2hr while awake until discontinued starting 10/13/2020 Spirometry panel Incentive sujit metry Respiratory Care Routine Every 2hr while awake until discontinued starting 06/24/2022 [employer] Phone: Comment on above: Every 2hr while awake until discontinued starting 06/24/2022 SURG PATH REQUEST [facility] Comment on above: Release Upon Ordering for 1 Occurrences starting 12/30/2022, 1 completed Payers Date Payer Category Payer Medicare 2021 Unknown [id number] 2019 Medicare MEDICARE MEDICAR E PART A AND B xxxxxxxxxx 2019-Present [phone] [place] [address] xxxxxxxxxx [id number] 2019 Medicare MEDICARE MEDICAR E PART A AND B xxxxxxxxxxx 2019-Present [phone] [place] [address] xxxxxxxxxxx [id number] 2019 Medicare MEDICARE MEDICAR E PART A AND B [id number] 2019-Present [phone] [place] [address] [id number] 2019 Medicare [id number] 2018 Unknown xxxxxxxxx [id number] 2018 Unknown [id number] 2017 Unknown [facility] ATTENTION [id number] [facility] CBO/[id number] 2017-Present [address] [place] [address] [id number] 2017 Unknown [facility] ATTENTION CBO/1336F [facility] CBO/1336F [id number]-Present [address] [place] [address] [id number] 1.2.840.871248.1.13.239.2.7.3 .214832.315 2016 Self-pay 1998 Unknown [id number] 1.2.840.692911.1.13.239.2.7.3 .050162.315 1998 Unknown [id number] 1.2.840.483464.1.13.239.2.7.3 .680843.315 1998 Unknown [id number] 1954 Unknown [id number] 2.16.840.1.256831.3.579.2.754 1954 Unknown [id number] 2.16.840.1.830872.3.579.2.478 1954 Unknown [id number] 2.16.840.1.871726.3.579.2.478 1954 Unknown [id number] 2.16.840.1.331556.3.579.2.478 1954 Unknown [id number] 2.16.840.1.479192.3.579.2.478 1954 Unknown [id number] 2.16.840.1.572751.3.579.2.478 1954 Unknown [id number] 2.16.840.1.235479.3.579.2.478 1954 Unknown [id number] 2.16.840.1.808448.3.579.2.175 1954 Unknown [id number] 2.16.840.1.890859.3.579.2.175 1954 Unknown [id number] 2.16.840.1.304701.3.579.2.175 1954 Unknown [id number] 2.16.840.1.825673.3.579.2.196 1954 Unknown [id number] 2.16.840.1.327801.3.579.2.196 1954 Unknown [id number] 2.16.840.1.420546.3.579.2.196 1954 Unknown [id number] 2.16.840.1.045560.3.579.2.173 1954 Unknown [id number] 2.16.840.1.162622.3.579.2.173 1954 Unknown [id number] 2.16.840.1.608521.3.579.2.173 1954 Unknown [id number] 2.16.840.1.551884.3.579.2. 1954 Unknown [id number] 2.16.840.1.140860.3.579.2. 1954 Unknown [id number] 2.16.840.1.031932.3.579.2.173 1954 Unknown [id number] 2.16.840.1.282724.3.579.2. 1954 Unknown [id number] 2.16.840.1.039822.3.579.2. 1954 Unknown [id number] 2.16.840.1.553320.3.579.2. 1954 Unknown [id number] 2.16.840.1.788112.3.579.2.173 1954 Unknown [id number] 2.16.840.1.049730.3.579.2. 1954 Unknown [id number] 2.16.840.1.683836.3.579.2. 1954 Unknown [id number] 2.16.840.1.224204.3.579.2. 1954 Unknown [id number] 2.16.840.1.284091.3.579.2. 1954 Unknown [id number] 2.16.840.1.905790.3.579.2.173 1954 Unknown [id number] 2.16.840.1.243617.3.579.2.173 1954 Unknown [id number] 2.16.840.1.814454.3.579.2.173 1954 Unknown [id number] 2.16.840.1.626344.3.579.2.173 1954 Unknown [id number] 2.16.840.1.021618.3.579.2.173 1954 Unknown [id number] 2.16.840.1.722308.3.579.2.173 1954 Unknown [id number] 2.16.840.1.394873.3.579.2. 1954 Unknown [id number] 2.16.840.1.513904.3.579.2.173 1954 Unknown [id number] 2.16.840.1.210144.3.579.2.173 1954 Unknown [id number] 2.16.840.1.031220.3.579.2.173 1954 Unknown [id number] 2.16.840.1.691073.3.579.2.173 1954 Unknown [id number] 2.16.840.1.504040.3.579.2.173 1954 Unknown [id number] 2.16.840.1.740655.3.579.2.173 1954 Unknown [id number] 2.16.840.1.618169.3.579.2.594 1954 Unknown [id number] 2.16.840.1.213115.3.579.2.594 1954 Unknown [id number] 2.16.840.1.146981.3.579.2.594 1954 Unknown [id number] 2.16.840.1.881316.3.579.2.594 1954 Unknown [id number] 2.16.840.1.594599.3.579.2.594 1954 Unknown [id number] 2.16.840.1.604496.3.579.2.594 1954 Unknown [id number] 2.16.840.1.259423.3.579.2.594 1954 Unknown [id number] 2.16.840.1.585933.3.579.2.594 1954 Unknown [id number] 2.16.840.1.884961.3.579.2.594 Social History Date Type Detail Facility Start: 03-11-2019 End: 07-04-2022 Tobacco smoking status NHIS Never smoker [employer] Phone: Start: 03-11-2019 End: 04-22-2024 Alcohol intake Yes [place], [place] Start: 11-08-2018 Alcohol Comment [place] Start: 1955 Sex Assigned At Not on file M [place], [place] Start: 09-28-2019 End: 06-20-2024 Alcohol intake Current drinker of alcohol (finding) [place] Exposure to SARS-CoV -2 (event) Unable to assess [place] Start: 09-30-2019 End: 07-04-2022 Tobacco use and exposure Never used [place] Start: 06-10-2022 End: 02-28-2023 Exposure to SARS-CoV-2 (event) Not sure [place] Start: 09-08-2020 Alcohol Comment BEER DAILY [place] Exposure to SARS-CoV -2 (event) Yes [place] Start: 10-13-2020 Alcohol Comment 10-12 daily [place] Start: 07-04-2022 End: 08-04-2024 Alcohol intake Ex-drinker (finding) [employer] Phone: Start: 07-04-2022 End: 04-22-2024 Alcohol intake [employer] Phone: Start: 07-04-2022 History SDOH Alcohol Comment 4-5 drinks a night [facility] [employer] Phone: Start: 11-25-2022 Alcohol Comment 4-5 light beers a ni ght [employer] Phone: Start: 09-15-2021 History SDOH IPV Fear 2 [facility] Start: 05-19-2021 Alcohol Comment daily [facility] Start: 12-23-2022 Alcohol Comment 5 daily [facility] Start: 05-09-2017 Gender identity Identifies as male gender (finding) [facility] Physical Abuse Denies [facility] Medical Equipment Procedure Code Equipment Code Equipment Origin al Text Equipment Identifier Dates Mesh Progrip Lapscp [id number] Start : 12-27-2018 Baseplate Dinh [id number] +3mm Lat Offset Augmented Aequalis - [id number] Start: 10-13-2020 Tray Hum Thk+0mm 3.5mm Offset Shldr Hi Reversed Aequalis - [id number] Start: 10-13-2020 Sphere Dinh Dia3 9mm +3mm Lat Offset Reversed Aequalis - [id number] Start: 10-13-2020 Insert Shldr C [id number] Thk+9mm 7.5deg Reversed Aequalis - [id number] Start: 10-13-2020 Stem Hum Sz 5b L 82mm 132.5deg Std Ptc For Conv Shldr Sys - [id number] Start: 10-13-2020 Screw Bone L35mm Dia6.5mm Ti St Full Thrd Ctrl For Dinh [id number] Start: 10-13-2020 Screw Bone L26mm Dia5mm Ti St Full Thrd Periph For Dinh [id number] Start: 10-13-2020 Screw Bone L34mm Dia5mm Ti St Full Thrd Periph For Dinh [id number] Start: 10-13-2020 Spine:Stimulator -8/3 11/2020 [id number] Start: 07-13-2021 Comment on above: Description: LINEAR ST 50 CM LEAD MODEL SC-2218-[address] 50 CM LEAD MODEL SC-2218-50 ANCHOR CLIK X MODEL [id number]-4318 Dermis Decell 2.5-3.8gg5c2ta - [id number] Start: 10-27-2017 Landingi Alpha 16 Implantable Pulse Generator Kit [id number] FDA Start: 07-13-2021 Kit Bone Graft 5 cc 12cc Stimulan Rapid Cure Calcium Sulfate - [id number] Start: 12-30-2022 Putty [place] 5c c - [id number] Start: 02-28-2023 Ankle Arthrodesi s Nail 12 X 200mm [id number] Start: 02-28-2023 Pushlock Bio-Composite 4.5 - [id number] Start: 10-27-2017 Suture Williams, Biocomposite Swivelock C [id number] Start: 10-27-2017 Swivelock Bio V 4.75x19.1 - [id number] Start: 10-27-2017 Williams Sut Fbrtk 1.3mm St - [id number] Start: 10-27-[address] 50cm 8 Contact Lead Kit [id number] Start: 07-13-[address] 50cm 8 Contact Lead Kit [id number] Start: 07-13-2021 Clik X Williams [id number] Start: 07-13-2021 [id number] Medtro leonidas Dbm Putty 5cc [id number] Start: 02-28-2023 Screw Bone 14.5m m 8mm Compression Cannulated Ankle Titanium - [id number] Start: 02-28-2023 Screw Bone 40mm 5mm Lock Titanium T2 Partial Thread Sterile - [id number] Start: 02-28-2023 Screw Bone 30mm 5mm Lock Titanium Full Thread Sterile T2 - [id number] Start: 02-28-2023 Screw Bone 40mm 5mm Lock Titanium Full Thread Sterile T2 - [id number] Start: 02-28-2023 Screw Bone 65mm 5mm Lock Titanium Full Thread Sterile T2 - [id number] Start: 02-28-2023 Locking Screw 5 X 32.5mm [id number] Start: 02-28-2023 Clinical Notes 06-23-2022 to 06-20-2024 Cristopher Moreira MD - 06/20/2024 1:15 PM EDTPatient Vimal Hansen - 04/04/2024 1:00 PM EDLawyer Jayro - 03/19/2024 2:45 PM EDTEIbis mccain PTA - 03/12/2024 1:45 PM EDT Note Date & Type Note Facility 06-20-2024 History of Present illness Narrative [facility] Date of Visit: 06/20/2024 Procedure: 12/30/2022: Left ankle/subtalar scope, debridement, bone biopsy, antibiotic cement 02/28/2023: Left TTC arthrodesis, PTBG Chief Complaint: Chief Complaint Patient presents with Left Ankle - Follow-up Pt reports for L TTC fusion 15m FUV. Pt reports constant pain. Pt reports pain has been getting worse since AMY. History of Present Illness: Preston Carrasquillo is a 68 y.o. male with PMH notable for history of chronic Left hindfoot septic arthritis who presents today now @16 months s/p Left TTC fusion. Overall alignment and stability are improved. Still having difficulty on uneven terrain and focal pain in the plantar heel and lateral forefoot. [facility]. Medications: has a current medication list which includes the following prescription(s): acetaminophen, baclofen, cyclobenzaprine, lidocaine, lisinopril, ropinirole, and trazodone. Allergies: has No Known Allergies. PFSH: Past Medical History: has a past medical history of Adopted, Ankle joint pain, Essential hypertension, benign, Flat foot, Hernia, umbilical, Hyperlipidemia, Ingrown toenail, Low back pain, Male erectile dysfunction, Pain in left shoulder, Pain in right shoulder, Pityriasis versicolor, and RLS (restless legs syndrome). Past Surgical History: has a past surgical history that includes arthroscopy shoulder w/ rotator cuff repair (Left, 10/27/2017); arthroscopy shoulder w/ subacromial decompression/acromioplasty add-on (Left, 10/27/2017); arthroscopy shoulder w/ debridement (Left, 10/27/2017); hernia repair; insertion neurostimulator electrode spinal percutaneous (N/A, 07/13/2021); insertion replacement neurostimulator generator spinal (N/A, 07/13/2021); analysis/programming neurostimulator generator system (N/A, 07/13/2021); arthroscopy ankle w/ debridement (Left, 12/30/2022); i&d bone cortex ankle leg (Left, 12/30/2022); insertion implant nonbiodegradable drug delivery (Left, 12/30/2022); arthroscopy subtalar joint w/ debridement (Left, 12/30/2022); shoulder surgery (Right); arthroscopy ankle w/ arthrodesis (Left, 02/28/2023); arthrodesis tarsal joint (Left, 02/28/2023); and harvest graft bone large donor area (Left, 02/28/2023). Family History: no known history of clotting disorders Social History: reviewed in chart. reports that he has never smoked. He has never used smokeless tobacco. Physical Examination: GENERAL: alert and oriented x3 Wt Readings from Last 1 Encounters: 02/28/23 78.5 kg (173 lb) , There is no height or weight on file to calculate BMI. MUSCULOSKELETAL: Gait: mild limp, stiff ankle gait Inspection/ Palpation: Left foot and ankle: well healed incisions, mild ttp plantar heel and lateral forefoot Range of Motion: - R ankle: DF- 10 PF- 45; L ankle: stable TTC fusion Muscle Strength and Tone: intact strength to toe flex/ ext, ankle df/ pf/ ev/ inv NEUROVASCULAR: no focal deficits; sensation intact to light touch; toes well perfused SKIN: no erythema/cellulitis; no signs of infection. Radiology: Radiographs: 3 weightbearing views of the Left foot (01/18/24) and Left ankle (09/14/23, 01/18/24) demonstrated stable improved alignment s/p TTC arthrodesis with valgus deformity correction, 1st MTPJ arthritis, osteopenia Radiographs: 3 weightbearing views of the Left ankle (06/20/24) were independently reviewed and demonstrate stable alignment, well consolidated ankle arthrodesis, some lucency around distal distal screws with concern for possible subtalar nonunion Assessment/Plan: ICD-10-CM 1. S/P Left tibiotalocalcaneal arthrodesis Z98.1 XR ANKLE LEFT 3+ VIEWS ANKLE FOOT ORTHOSIS 2. Chronic pain in left foot M79.672 XR ANKLE LEFT 3+ VIEWS G89.29 ANKLE FOOT ORTHOSIS 3. Arthritis of first metatarsophalangeal (MTP) joint of left foot M19.072 Preston has improved hindfoot alignment following TTC fusion but now having issues with forefoot pain and overload due to the stiffness - counseled on continued pain management with shoegear and orthotic modifications/ NSAID use as needed - continue custom orthotics - trial gel heel cup - trial rocker bottom style shoes (MBT, EfraínkaOne, G-defyer, Oofos, ..) - referral for carbon fiber AFO - discussed that I will be leaving [employer] next month, he is interested discussing a revision to ankle arthroplasty, [facility] for a second opinion The patient needs a custom fabricated orthosis for ambulatory purposes. The orthosis will lend stability to the limb during ambulation and allow for continuing navigation safely through the environment. The diagnosis necessitates a well-molded orthosis that intimately contours to the limb to control biomechanical forces in more than one plane and protect skin integrity. The patient will need the orthosis for greater than 9 months. An mrr-wio-qmlps design will not adequately meet their needs secondary to the specific alignment required. The patient has tried bracing in the past but it is not meeting their needs as per current diagnosis and symptoms. A new orthosis is indicated in order to intimately contour to the limb at its current shape and size and the current demands for control. The existing orthosis cannot be altered to accommodate this change in shape and need for stability / motion control. The most functional, least costly approach is a new custom fabricated orthosis. The diagnosis and treatment plan were discussed at length. The patient understands the plan and all questions were answered. documented in this encounter [facility] 06-20-2024 Instructions Cristopher Moreira MD - 06/20/2024 1:15 PM EDT Radiology: Radiographs: 3 weightbearing views of the Left foot (01/18/24) and Left ankle (09/14/23, 01/18/24) demonstrated stable improved alignment s/p TTC arthrodesis with valgus deformity correction, 1st MTPJ arthritis, osteopenia Radiographs: 3 weightbearing views of the Left ankle (06/20/24) were independently reviewed and demonstrate stable alignment, well consolidated ankle arthrodesis, some lucency around distal distal screws with concern for possible subtalar nonunion Assessment/Plan: ICD-10-CM 1. S/P Left tibiotalocalcaneal arthrodesis Z98.1 XR ANKLE LEFT 3+ VIEWS ANKLE FOOT ORTHOSIS 2. Chronic pain in left foot M79.672 XR ANKLE LEFT 3+ VIEWS G89.29 ANKLE FOOT ORTHOSIS 3. Arthritis of first metatarsophalangeal (MTP) joint of left foot M19.072 Preston has improved hindfoot alignment following TTC fusion but now having issues with forefoot pain and overload due to the stiffness - counseled on continued pain management with shoegear and orthotic modifications/ NSAID use as needed - continue custom orthotics - trial gel heel cup - trial rocker bottom style shoes (JOANAT, Rohit, Geovani, Oofos, ..) - referral for carbon fiber AFO - discussed that I will be leaving [facility] next month, he is interested discussing a revision to ankle arthroplasty, may followup at [facility] documented in this encounter [facility] 04-24-2024 Note Admission Informatio n Patient: Preston Carrasquillo : 1955 Date of Admission: 04/23/2024 03:10:40 Date of Discharge: Code Status: Full Resuscitation PCP: Sandee HANSONAlex Consult: Duane HANSON, Carlo Larkin; Carol HANSON, Sandrine Cedeño [facility] Course Summary: This is a 68 Years old Male with past medical history of hypertension, hyperlipidemia, restless leg syndrome, chronic back pain who initially presented to [facility] emergency department via EMS after falling down 2 stairs at home and feeling my back popped. Patient has chronic back pain which became intractable and intolerable after the fall. Patient reports that he was planning to have surgical intervention on his chronic back issues after a planned trip to [place] in approximately 87 days. Imaging revealed a new compression fracture of the L4 body with 60% loss of height. He was subsequently transferred to [facility]. Patient was admitted due to L4 compression fracture after falling noted on imaging studies. He had kyphoplasty done on 04/23 by IR. He was evaluated by physical therapy and outpatient PT was recommended. On my evaluation, patient complains of a restless leg and took his ropinirole. His vital signs were stable. He would like to be discharged. Patient will follow-up with his primary care physician outpatient. Discharge Time Spent with Patient: Greater than 35 minutes Medications Medications That Were Updated - Follow Current Instructions [id number], [address], [place] [id number], [phone] Current: oxyCODONE-acetaminophen (Percocet 5/325 oral tablet) 1 Tabs Oral (given by mouth) every 8 hours as needed as needed for pain for 3 Days. Refills: 0. Last Dose: Medications That Have Not Changed Other Medications baclofen (baclofen 10 mg oral tablet) 1 Tabs Oral (given by mouth) every day. Last Dose: DULoxetine (DULoxetine 30 mg oral delayed release capsule) 2 Capsules Oral (given by mouth) once a day (in the morning). Last Dose: lidocaine topical (lidocaine 1.8% topical film) 1 Patches Topical (on the skin) every day. leave on up to 12 hours. Last Dose: lisinopril (lisinopril 10 mg oral tablet) 1 Tabs Oral (given by mouth) every day. Last Dose: These Medications Were Removed and Should No Longer Be Taken hydrocodone-acetaminophen (hydrocodone-acetaminophen 5 mg-325 mg oral tablet) 2 Tabs Oral (given by mouth) every day as needed as needed for pain. Stop Taking Reason: Physician Request Patient Discharge Condition Stable Discharge Disposition Home Objective Physical Exam General: Alert oriented x3, patient appears in no acute cardiorespiratory distress. Eye: normal conjunctiva HENT: Normocephalic, moist oral mucosa, no scleral icterus. Neck: Supple, non-tender, no lymphadenopathy. Lungs: Clear to auscultation, no crepitations or wheeze. Heart: S1-S2 is normal. No rubs or gallops. Abdomen: Soft, non-tender, non-distended, normal bowel sounds, no masses Extremities: No cyanosis clubbing or edema Skin: no open sores or wounds Neurologic: Awake, alert, and oriented X3, patient does not have any focal deficits. Psychiatric: Calm and cooperative Vitals & Measurements T: 36.5 ?C (Oral) HR: 98 (Peripheral) RR: 18 BP: 150/82 SpO2: 94% HT: 172 cm WT: 88.7 kg BMI: 30.39 Additional Vitals No qualifying data available. Lab Results Labs (Last four charted values) WBC 8.5 (APR 24) 8.4 (APR 23) Hgb 15.4 (APR 24) 14.5 (APR 23) Hct 46.2 (APR 24) 43.7 (APR 23) Plt 189 (APR 12) 192 (APR 23) Na L 127 (APR 12) L 131 (APR 23) K 3.5 (APR 24) 3.8 (APR 23) CO2 23 (APR 24) 26 (APR 23) Cl L 95 (APR 12) 99 (APR 23) Cr 1.03 (APR 24) 0.98 (APR 23) BUN 17 (APR 12) 18 (APR 23) Mg 2.1 (APR 24) 2.3 (APR 23) Microbiology - Current Encounter No qualifying data available. Diagnoses: 1. Fall down stairs Back pain Pain S/P kyphoplasty Procedure/Surgical History rotator cuff repair-left Rotator cuff repair (12/10/2014) Arthroscopy Shoulder (Left) (02/07/2017) Lumbar/Sacral Dorsal Medial Branch Block (Right) (02/08/2018) Lumbar Radiofrequency Ablation (Right) (03/08/2018) Total shoulder replacement (10/13/2020) Electronically signed by Nirmala Saez MD 04/24/24 12:47 EDT [facility] 04-23-2024 Note CLINICAL HISTORY: L4 compression fracture. Failed all attempted conservative management. PROCEDURE: L4 kyphoplasty was performed. SEDATION: Sedation was provided by the department of radiology. Vital signs were monitored and documented before, during and after the procedure. Sedation time was approximately 45 minutes. FLUOROSCOPY TIME: 5.2 minutes DOSE: 534 mGy Reference air kerma (Ka,r) MEDICATION: 1 gram intravenous Ancef 1 mg intravenous Versed. 50 mcg intravenous fentanyl. TECHNIQUE AND FINDINGS: After the procedure, risks and benefits were explained to the patient, written consent was obtained. The patient was placed in the prone position on the fluoroscopy table. Fluoroscopy was used to determine a site of access bilaterally on the skin overlying the pedicles of L4. The skin was marked, prepped and draped in usual sterile fashion. Maximum sterile barrier was utilized. A timeout was completed. The skin was anesthetized with 2% lidocaine. Under fluoroscopic guidance, access was obtained to the L4 vertebral body on the right using the transpedicular approach and the [employer] express access system. Drilling was performed. This process was repeated on the left. Next, inflatable bone tamps were inserted side by side and inflated. Balloons were minimally inflated. The balloon was removed and curetting was performed bilaterally. The balloons were inserted and inflated to approximately 1 mL bilaterally.. The bone tamps were withdrawn. Slow injection of 1.5 mL of cement on the right was performed under fluoroscopic observation. There was adequate filling of the balloon cavities with interdigitation. This was repeated on the left with an additional 2.0 mL of cement injected. Again, there was adequate filling of the balloon cavities with interdigitation. The trocars were removed and hemostasis was achieved with manual pressure. The skin was cleaned and bandage. The patient tolerated the procedure well without immediate complication. IMPRESSION: Technically successful and uneventful L4 kyphoplasty as detailed above. Final Dictated by: Carlo Zepeda MD Dictated DT/TM: 04/23/2024 3:12 pm Signed by: Carlo Zepeda MD Signed (Electronic Signature): 04/23/2024 3:13 pm (If Report Is Signed, Electronically Signed in Other Vendor System) [facility] 04-23-2024 Note Performing Provider: Duane Assistants: No surgical assists Procedure Performed: Kyphoplasty Brief Description of Procedure: L4 kyphoplasty Estimated Blood Lose: None to minimal Specimens Removed: None Complications: None Post-Procedure Diagnosis: Fracture Electronically signed by Carlo Zepeda MD 04/23/24 15:11 EDT [facility] 04-23-2024 Note Chief Complaint Transfer from [facility] secondary to compression fracture with need for kyphoplasty Assessment/Plan Brief Hospital Course Summary: This is a 68 Years old Male who initially presented to [facility] emergency department via EMS after falling down 2 stairs at home and feeling my back popped. Patient has chronic back pain which became intractable and intolerable after the fall. Patient reports that he was planning to have surgical intervention on his chronic back issues after a planned trip to [facility] in approximately 87 days. Imaging revealed a new compression fracture of the L4 body with 60% loss of height. ER providers called for request for transfer and spoke with Dr. Medina who recommended transfer and admission to the hospitalist team. Pertinent medical history includes hypertension, hypercholesterolemia and restless leg syndrome. Patient is admitted for L4 compression fracture after falling down 2 stairs at home on 04/23/2024. Assessment: _ Compression fracture at L4 with loss of height s/p fall down stairs Hypertension Hypercholesterolemia Restless leg syndrome Plan: _ Admit to surgical unit Monitor vitals closely including pulse oximetry Oxygen as needed via nasal cannula to maintain SpO2 > 90% N.p.o. until seen by surgery CT lumbar spine without contrast completed at [facility]. See reports CBC, BMP and Mag daily Dilaudid 1 mg every 3 hours as needed for pain control while n.p.o. Continue Percocet 5?325 mg tablets, 1 every 4 hours as needed for pain control SCDs and subcutaneous heparin for DVT prophylaxis PT/OT evaluation for discharge recommendations Social work consult for discharge planning Orthopedic surgery consult, Dr. Medina accepted for transfer Interventional radiology consult, Dr. Platt for possible kyphoplasty Discussion: I discussed with the patient, family, patient's nurse, and care transition about the patient's plan of care. I reviewed other provider notes. Anticipated Discharge Location and Time: Home In 24 Hours DVT prophylaxis: Heparin prophylactic dose Rizzo catheter/Nasogastric tube/Central lines/Drain: No Follow up plan after Discharge: Needs outpatient follow up for routine follow up with the Primary Care and or Consulting provider within one to two weeks. I reviewed results of the laboratory tests, did my independent review of the films on imaging and or EKG which was reported by another physician. I agreed with the findings. I did have prior medical records to review for comparison. Complication: ongoing monitoring for worsening symptoms, prescription drug therapy monitoring for interactions, toxicity. Medical necessity for ongoing hospitalization: ongoing workup for active diagnosis Code Status: Full Resuscitation History of Present Illness Mr. Preston Carrasquillo is a 68-year-old male who initially presented to [facility] emergency department via EMS after falling down 2 stairs at home and feeling my back popped. Patient has chronic back pain which became intractable and intolerable after the fall. Patient reports that he was planning to have surgical intervention on his chronic back issues after a planned trip to [place] in approximately 87 days. Imaging revealed a new compression fracture of the L4 body with 60% loss of height. ER providers called for request for transfer and spoke with Dr. Medina who recommended transfer and admission to the hospitalist team. Pertinent medical history includes hypertension, hypercholesterolemia and restless leg syndrome. He denies tobacco, alcohol and illicit drug use. [facility] chart reviewed. Blood work ordered on arrival and pending. Patient seen and examined upon arrival to nursing unit with no signs or symptoms of acute cardiopulmonary distress noted on room air. He continues to experience intractable back pain which has only been mildly relieved by Dilaudid prior to transfer. He denies chest pain, shortness of breath at rest, nausea/vomiting and fever/chills. Plan of care discussed at length questions answered. He is agreeable to admission for further evaluation and treatment. Review of Systems 10 point ROS done and negative except what is mentioned subjective interview. Objective General: Alert and oriented, in no acute distress. Neck: Supple, non-tender, no carotid bruits, no JVD. Lungs: Clear throughout all lung de la garza, non-labored respiration on room air. Heart: Normal rate, regular rhythm, S1-S2, no murmur, gallop or edema. Abdomen: Soft, non-tender, non-distended, normal bowel sounds. Musculoskeletal: Intractable pain to back at rest, worsens with movement. Limited ROM of BLE due to back pain Skin: Skin is warm, dry and pink. Neurologic: Awake, alert, and oriented X3. No focal deficits noted. Psychiatric: Calm and cooperative, appropriate mood and affect. Vitals & Measurements T: 36.8 ?C (Oral) HR: 89 (Peripheral) RR: 16 BP: 178/93 SpO2: 95% HT: 172 cm WT: 89.9 kg WT: 89. (more content not included)... [facility] 04-04-2024 History of Present illness Narrative [facility] Outpatient Physical Therapy Daily Note Patient: Preston Carrasquillo : 1955 CSN #: [id number] Referring Physician: Abbey De Paz DPM Date: 04/04/2024 Diagnosis: Plantar fascial fibromatosis Treatment Diagnosis: L foot pain Onset Date: 02/28/23 PT Insurance Information: [place] Total # of Visits Approved: 15 Per Physician Order Total # of Visits to Date: 7 No Show: 1 Canceled Appointment: 03 Plan of Care/Recert Due Pre-Treatment Pain: 01/20 Subjective: Pt states his achillies feels better following session. Pt states he's sore everyday Exercises: Exercise 2: calf stretch with towel--gentle Exercise 3: marble pickling grader Exercise 4: foot roller Manual: Joint Mobilization: Mobs to fore/midfoot Soft Tissue Mobilizaton: IASTM to achilles, and plantar fasciia Other: Thermoprobe hot to plantar surface. Assessment Assessment: Pt feels better follwing session. Pt gait remains painfull and antalgic, Stretching and myofascial tech tolerated well. Activity Tolerance Activity Tolerance: Patient tolerated treatment well Patient Education Patient Education: HEP Pt verbalized/demonstrated good understanding: [x] Yes [] No, pt required further clarification. Post Treatment Pain: 3/10 Plan Plan Frequency: 2 Plan weeks: 7 Goals (Total # of Visits to Date: 7) Short Term Goals Time Frame for Short Term Goals: 3 weeks Short Term Goal 1: Patient will be initiated with HEP -MET Short Term Goal 2: Patient will tolerate manual interventions and modalities to decrease pain -MET Computer Art Instructor Goals Time Frame for Alf Goals : 6 weeks Alf Goal 1: Patient will be independent and compliant with a HEP Computer Art Instructor Goal 2: Patient will report decreased foot pain to <5/10 at worst. Alf Goal 3: Patient will deny pain with palpation of his foot. Alf Goal 4: Patient will report 60% improvement in overall symptoms and function. Minutes Tracking: Time In: 1300 Time Out: 1342 Minutes: 42 Timed Code Treatment Minutes: 41 Minutes Vimal Chapin Date: 04/04/2024 documented in this encounter [facility] 03-19-2024 History of Present illness Narrative Physical Therapy [facility] Inpatient/Observation/Outpatient Rehabilitation Date: 03/19/2024 Patient Name: Preston Carrasquillo [] Inpatient Acute/Observation [] Outpatient : 1955 [] Pt no showed for scheduled appointment [] Pt refused/declined therapy at this time due to: [] Pt cancelled due to: [] No Reason Given [] Sick/ill [x] Other: Was stuck on a job site and was to busy to attend physical therapy. [] Evaluation held by RN/Provider due to: [] High Heart Rate [] High Blood Pressure [] Orthopedic Consult [] Hgb < 7 [] Other: [] Pt does not require skilled services due to: Therapist/Lumber Stacker Operator will attempt to see this patient, at our earliest opportunity. Lawyer Loco Date: 03/19/2024 documented in this encounter [facility] 03-12-2024 History of Present illness Narrative Physical Therapy [facility] Inpatient/Observation/Outpatient Rehabilitation Date: 03/12/2024 Patient Name: Preston Carrasquillo [] Inpatient Acute/Observation [x] Outpatient : 1955 Plan of Care/Recert ends [x] Pt no showed for scheduled appointment [] Pt refused/declined therapy at this time due to: [] Pt cancelled due to: [] No Reason Given [] Sick/ill [] Other: Called pt., voicemail was full. Called pts spouse listed as alternative contact. Informed her pt. Missed 2 visits and next visit if NCNS will be removed from therapy schedule. Did inform her next appointment was on 03/15 @ 1. [] Evaluation held by RN/Provider due to: [] High Heart Rate [] High Blood Pressure [] Orthopedic Consult [] Hgb < 7 [] Other: [] Pt does not require skilled services due to: Therapist/Lumber Stacker Operator will attempt to see this patient, at our earliest opportunity. Yue Kapoor Date: 03/12/2024 documented in this encounter [facility] 03-05-2024 History of Present illness Narrative Physical Therapy [facility] Inpatient/Observation/Outpatient Rehabilitation Date: 03/05/2024 Patient Name: Preston Carrasquillo [] Inpatient Acute/Observation [x] Outpatient : 1955 Plan of Care/Recert ends [x] Pt no showed for scheduled appointment [] Pt refused/declined therapy at this time due to: [] Pt cancelled due to: [] No Reason Given [] Sick/ill [] Other: [] Evaluation held by RN/Provider due to: [] High Heart Rate [] High Blood Pressure [] Orthopedic Consult [] Hgb < 7 [] Other: [] Pt does not require skilled services due to: Therapist/Lumber Stacker Operator will attempt to see this patient, at our earliest opportunity. Yue Kapoor Date: 03/05/2024 [facility] Inpatient/Observation/Outpatient Rehabilitation Date: 03/05/2024 Patient Name: Preston Carrasquillo [] Inpatient Acute/Observation [x] Outpatient : 1955 Plan of Care/Recert ends [x] Pt no showed for scheduled appointment [] Pt refused/declined therapy at this time due to: [] Pt cancelled due to: [] No Reason Given [] Sick/ill [] Other: Called pt. To inform him of his missed appointment, reminded pt. Of next appointment. [] Evaluation held by RN/Provider due to: [] High Heart Rate [] High Blood Pressure [] Orthopedic Consult [] Hgb < 7 [] Other: [] Pt does not require skilled services due to: Therapist/Lumber Stacker Operator will attempt to see this patient, at our earliest opportunity. Ibis Quesada, ESTELITA Date: 03/05/2024 documented in this encounter [facility] 02-14-2024 Note Procedure: MRI of th e lumbar spine without contrast. Sequences: Sagittal T1, T2 and inversion recovery; and axial T1 and T2. Clinical information: 68-year-old male with low back pain. Comparison: 04/30/2021 and 05/25/2020. Findings: Bones: New mild to moderate L4 vertebral body compression deformity. Mild to moderate heterogeneous STIR hyperintensity throughout the vertebral body and severe T1 hypointensity of the anterior superior vertebral body. Moderate Modic type I and Modic type II endplate degenerative changes at L1-2 and L4-5. Moderate Modic type I endplate degenerative changes at L2-3. Conus medullaris: Intact caliber and signal intensity terminating at L1. Intervertebral discs: Severe L1-2 and L4-5 and moderate L2-3 degenerative disc disease (DDD). Degenerative changes at the individual levels: T11-12, T12-L1: No disc bulge or protrusion. Canal stenosis: Grossly none. Neuroforaminal stenosis: Grossly none. L1-2: Concentric disc osteophyte complex. Canal stenosis: Mild. Neuroforaminal stenosis: Moderate right, mild left. L2-3: Disc bulge and superimposed 1 cm cephalocaudal central and cephalad disc extrusion. Canal stenosis: Mild. Neuroforaminal stenosis: Moderate right, severe left with borderline nerve root impingement. L3-4: Foraminal disc protrusions and mild facet osteoarthrosis (OA). Canal stenosis: None. Neuroforaminal stenosis: Mild right, moderate left. L4-5: Right foraminal to left subarticular zone disc protrusion and moderate facet OA. Canal stenosis: Mild. Neuroforaminal stenosis: Severe, borderline nerve root impingement. L5-S1: Moderate right and severe left facet OA. Canal stenosis: None. Neuroforaminal stenosis: None. Soft tissues: No large mass. IMPRESSION: 1. Moderate L4 vertebral body compression fracture, possibly subacute versus old with degenerative signal abnormality. If patient is symptomatic at this level, consider vertebral augmentation. 2. Mild and moderate multilevel spondylosis. 3. No advanced canal stenosis. 4. Borderline nerve root impingement on the left at L2-3 and bilaterally at L4-5, possible left L2 and bilateral L4 radiculopathy. Final Dictated by: Jaren Dominguez MD Dictated DT/TM: 02/14/2024 8:06 am Signed by: Jaren Dominguez MD Signed (Electronic Signature): 02/14/2024 8:24 am (If Report Is Signed, Electronically Signed in Other Vendor System) [facility] 01-18-2024 Note IMPRESSION: Redemonstration hindfoot arthrodesis with progressive lucency around the hardware suggestive of hardware loosening. No acute osseous abnormality. [facility] 01-18-2024 Note IMPRESSION: Redemonstration hindfoot arthrodesis with progressive lucency around the hardware suggestive of hardware loosening. No acute osseous abnormality. [facility] 01-18-2024 History of Present illness Narrative [facility] Date of Visit: 01/18/2024 Procedure: 12/30/2022: Left ankle/subtalar scope, debridement, bone biopsy, antibiotic cement 02/28/2023: Left TTC arthrodesis, PTBG Chief Complaint: Chief Complaint Patient presents with Left Foot - Follow-up Pt reports for 10.5m POV TTC arthrodesis. Pt reports L foot pain. Pt states pain has been present ever since surgery. Pt states pain has been stable since surgery. Pain exacerbated by weightbearing. Left Ankle - Follow-up Radiology: Radiographs: 3 weightbearing views of the Left foot (01/18/24) and Left ankle (09/14/23, 01/18/24) were independently reviewed and demonstrate stable improved alignment s/p TTC arthrodesis with valgus deformity correction, 1st MTPJ arthritis, osteopenia Assessment/Plan: ICD-10-CM 1. Chronic pain in left foot M79.672 XR FOOT LEFT 3+ VIEWS G89.29 2. S/P Left tibiotalocalcaneal arthrodesis Z98.1 XR ANKLE LEFT 3+ VIEWS 3. Arthritis of first metatarsophalangeal (MTP) joint of left foot M19.072 Preston is overall doing well with improved hindfoot alignment and function - counseled on continued pain management with shoegear and orthotic modifications/ NSAID use as needed - continue orthotics - trial gel heel cup - trial rocker bottom style shoes (MBT, EfraínkaOne, G-defyer, Oofos, ..) - followup 6-12 months The diagnosis and treatment plan were discussed at length. The patient understands the plan and all questions were answered. I interviewed and examined the patient with the resident. I personally reviewed the radiographic studies. The information in this document, originally created by the resident for me, and edited by myself, accurately reflects the services I personally performed and the decisions I made. I have reviewed and edited the note as necessary and approve this document for accuracy. Cristopher Moreira MD I interviewed and examined the patient with the resident. I personally reviewed the radiographic studies. The information in this document, originally created by the resident for me, and edited by myself, accurately reflects the services I personally performed and the decisions I made. I have reviewed and edited the note as necessary and approve this document for accuracy. Cristopher Moreira MD [facility] Date of Visit: 01/18/2024 Procedure: 12/30/2022: Left ankle/subtalar scope, debridement, bone biopsy, antibiotic cement 02/28/2023: Left TTC arthrodesis, PTBG Chief Complaint: Chief Complaint Patient presents with Left Foot - Follow-up Pt reports for 10.5m POV TTC arthrodesis. Pt reports L foot pain. Pt states pain has been present ever since surgery. Pt states pain has been stable since surgery. Pain exacerbated by weightbearing. Left Ankle - Follow-up History of Present Illness: Preston Carrasquillo is a 68 y.o. male with PMH notable for history of chronic Left hindfoot septic arthritis who presents today 10 months s/p L TTC fusion. Overall pain/ alignment much improved from preop. Completed PT. Using regular shoes. Pain currently rated 2/10 from surgery but is endorsing three areas that cause him intermittent, sharp and aching discomfort. Notes pain along the heal, along the achilles near the insertion, and pain along the lateral aspect of the foot proximal to the 5th MT. Notes worse when he first stands or takes a step and then again worse with prolonged WB activity and direct pressure. Improved with rest/elevation. Medications: has a current medication list which includes the following prescription(s): acetaminophen, baclofen, cyclobenzaprine, lidocaine, lisinopril, ropinirole, and trazodone. Allergies: has No Known Allergies. PFSH: Past Medical History: has a past medical history of Adopted, Ankle joint pain, Essential hypertension, benign, Flat foot, Hernia, umbilical, Hyperlipidemia, Ingrown toenail, Low back pain, Male erectile dysfunction, Pain in left shoulder, Pain in right shoulder, Pityriasis versicolor, and RLS (restless legs syndrome). Past Surgical History: has a past surgical history that includes arthroscopy shoulder w/ rotator cuff repair (Left, 10/27/2017); arthroscopy shoulder w/ subacromial decompression/acromioplasty add-on (Left, 10/27/2017); arthroscopy shoulder w/ debridement (Left, 10/27/2017); hernia repair; insertion neurostimulator electrode spinal percutaneous (N/A, 07/13/2021); insertion replacement neurostimulator generator spinal (N/A, 07/13/2021); analysis/programming neurostimulator generator system (N/A, 07/13/2021); arthroscopy ankle w/ debridement (Left, 12/30/2022); i&d bone cortex ankle leg (Left, 12/30/2022); insertion implant nonbiodegradable drug delivery (Left, 12/30/2022); arthroscopy subtalar joint w/ debridement (Left, 12/30/2022); shoulder surgery (Right); arthroscopy ankle w/ arthrodesis (Left, 02/28/2023); arthrodesis tarsal joint (Left, 02/28/2023); and harvest graft bone large donor area (Left, 02/28/2023). Family History: no known history of clotting disorders Social History: reviewed in chart. reports that he has never smoked. He has never used smokeless tobacco.. Physical Examination: GENERAL: alert and oriented x3; Wt Readings from Last 1 Encounters: 02/28/23 78.5 kg (173 lb) , There is no height or weight on file to calculate BMI. Gait: mild limp, stiff ankle gait Inspection/ Palpation: Left foot and ankle: well healed incisions, mild hindfoot swelling, Pain to palpation along the lateral band of plantar fascia, insertion of the achilles. Range of Motion: - R ankle: DF- 10 PF- 45; L ankle: DF- stable TTC fusion Muscle Strength and Tone: intact strength to toe flex/ ext, ankle df/ pf/ ev/ inv NEUROVASCULAR: no focal deficits; sensation intact to light touch; toes well perfused SKIN: no erythema/cellulitis; no signs of infection. Radiology: Radiographs: 3 weightbearing views of the Left foot (01/18/24) and Left ankle (09/14/23, 01/18/24) were independently reviewed and demonstrate stable improved alignment s/p TTC arthrodesis with valgus deformity correction, 1st MTPJ arthritis, osteopenia Assessment/Plan: ICD-10-CM 1. Chronic pain in left foot M79.672 XR FOOT LEFT 3+ VIEWS G89.29 2. S/P Left tibiotalocalcaneal arthrodesis Z98.1 XR ANKLE LEFT 3+ VIEWS 3. Arthritis of first metatarsophalangeal (MTP) joint of left foot M19.072 Preston is overall doing well with improved hindfoot alignment and function - counseled on continued pain management with shoegear and orthotic modifications/ NSAID use as needed - discussed rocker bottom shoes, heel cup - advised this is sometimes a secondary problem given the increased stress other areas of the foot see with ambulation after fusion with TTC. - all questions answered. - followup 6-12 mos The diagnosis and treatment plan were discussed at length. The patient understands the plan and all questions were answered. Fabian Spaulding MD Resident, PGY- 3 Dept. of Orthopaedic Surgery Pager: [phone] documented in this encounter [facility] 01-18-2024 Instructions Cristopher Moreira MD - 01/18/2024 11:45 AM EST Radiology: Radiographs: 3 weightbearing views of the Left foot (01/18/24) and Left ankle (09/14/23, 01/18/24) were independently reviewed and demonstrate stable improved alignment s/p TTC arthrodesis with valgus deformity correction, 1st MTPJ arthritis, osteopenia Assessment/Plan: ICD-10-CM 1. Chronic pain in left foot M79.672 XR FOOT LEFT 3+ VIEWS G89.29 2. S/P Left tibiotalocalcaneal arthrodesis Z98.1 XR ANKLE LEFT 3+ VIEWS 3. Arthritis of first metatarsophalangeal (MTP) joint of left foot M19.072 Preston is overall doing well with improved hindfoot alignment and function - counseled on continued pain management with shoegear and orthotic modifications/ NSAID use as needed - continue orthotics - trial gel heel cup - trial rocker bottom style shoes (TAYO, Geovani Bee, Oofos, ..) - followup 6-12 months documented in this encounter [facility] 01-18-2024 Miscellaneous Notes Addended by: CRISTOPHER MOREIRA on: 01/18/2024 12:58 PM Modules accepted: Level of Service documented in this encounter [facility] 01-18-2024 Note Addended by: CRISTOPHER MOREIRA on: 01/18/2024 12:58 PM Modules accepted: Level of Service [facility] 09-14-2023 History of Present illness Narrative Date of Visit: 09/14/2023 Date of Surgery: 02/28/23 Procedure: Left arthroscopic ankle arthrodesis Left subtalar arthrodesis Left proximal tibia bone graft harvest Chief Complaint: Chief Complaint Patient presents with Left Ankle - Follow-up 6 months s/p Left ankle sx 02/28/23- Eri- states he is doing really well- does have pain at rest but starts to get pain with WB- no N/T History of Present Illness: Preston Carrasquillo is a 68 y.o. male who presents today for a 7 month postoperative visit. Pain has been controlled. Rated 2/10. Only complaint is swelling. Is in regular shoe. Full weight bearing in regular shoes. Working on walking longer distances. Is working with PT. He denies fevers, chills, malaise. He denies calf pain, chest pain, shortness of breath. Physical Examination: GENERAL: alert, well-appearing, no acute distress Wt Readings from Last 1 Encounters: 02/28/23 78.5 kg (173 lb) , There is no height or weight on file to calculate BMI. MUSCULOSKELETAL: Gait: antalgic gait. Inspection/ Palpation: Left foot/ankle: mild swelling - surgical incisions healing well; Homans sign No NEUROVASCULAR: no focal deficits; sensation intact to light touch; toes well perfused SKIN: no erythema/cellulitis; no signs of infection. Radiology: Radiographs: 3 weightbearing views of the left ankle were independently reviewed and demonstrate stable alignment with intact hardware. 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 He will seek medical attention immediately if experiencing any of these. - followup in the office in 4 months with WB XR L ankle with Dr. moreira The diagnosis and treatment plan were discussed at length. The patient understands the plan and all questions were answered. documented in this encounter [facility] 08-02-2023 Telephone encounter Note I faxed via [facility] the referral to [facility] to . I left voice message with patient to state that the referral was faxed over. [facility] 08-02-2023 Miscellaneous Notes I faxed via [facility] the referral to PT to [facility] to . I left voice message with patient to state that the referral was faxed over. [facility] is needing a new order stating PT and not orthopedics and the needs to be corrected and faxed back to them. The patient is scheduled and they are needing this JENNA. Fx: [phone] documented in this encounter [facility] 08-02-2023 Telephone encounter Note [facility] is needing a new order stating PT and not orthopedics and the needs to be corrected and faxed back to them. The patient is scheduled and they are needing this JENNA. Fx: [phone] [facility] 07-01-2023 Hospital Discharge instructions Nadege Muñoz DO - 07/01/2023 12:00 PM EDT Continue taking your home pain medications. Ice 20 minutes at a time multiple times a day. Stretching exercise may also be helpful. Follow-up with your doctor next week. The following attachments cannot be sent through Care Everywhere.Back Pain ([place])documented in this encounter [facility] 06-15-2023 History of Present illness Narrative Date of Visit: 06/15/2023 Date of Surgery: 02/28/23 Procedure: 1. Left arthroscopic ankle arthrodesis 2. Left subtalar arthrodesis 3. Left proximal tibia bone graft harvest Chief Complaint: Chief Complaint Patient presents with Left Ankle - Follow-up Pt reports doing very well and making improvements. Pt states he starts PT on Monday. Slight pain with activity. He reports still having swelling. History of Present Illness: Preston Carrasquillo is a 67 y.o. male who presents today for a 3 month postoperative visit. Pain has been controlled. Rated 2/10. Only complaint is swelling. Is in regular shoe. Has put a little weight on his leg. Has a lace up ankle brace. He denies fevers, chills, malaise. He denies calf pain, chest pain, shortness of breath. Physical Examination: GENERAL: alert, well-appearing, no acute distress Wt Readings from Last 1 Encounters: 02/28/23 78.5 kg (173 lb) , There is no height or weight on file to calculate BMI. MUSCULOSKELETAL: Gait: currently nonweightbearing Inspection/ Palpation: Left foot/ankle: mild swelling - surgical incisions healing well; Homans sign No NEUROVASCULAR: no focal deficits; sensation intact to light touch; toes well perfused SKIN: no erythema/cellulitis; no signs of infection. Radiology: Radiographs: 3 weightbearing views of the left ankle were independently reviewed and demonstrate stable alignment with intact hardware. 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 He will seek medical attention immediately if experiencing any of these. - followup in the office in 3 months with WB XR L ankle The diagnosis and treatment plan were discussed at length. The patient understands the plan and all questions were answered. documented in this encounter [facility] 05-04-2023 History of Present illness Narrative Date of Visit: 05/04/2023 Date of Surgery: 02/28/23 Procedure: 1. Left arthroscopic ankle arthrodesis 2. Left subtalar arthrodesis 3. Left proximal tibia bone graft harvest Chief Complaint: Chief Complaint Patient presents with Left Ankle - Post Op Visit 9w2d Left arthroscopic ankle arthrodesis, Left subtalar arthrodesis,Left proximal tibia bone graft harvest (DOS 02/28/23), no pain of note. No new concerns at this time. History of Present Illness: Preston Carrasquillo is a 67 y.o. male who presents today for a 9 week postoperative visit. Pain has been controlled. Rated 5/10. Compliant with non weight bearing and Eliquis. Has put weight on his foot. Not taking steps, He denies fevers, chills, malaise. He denies calf pain, chest pain, shortness of breath. Physical Examination: GENERAL: alert, well-appearing, no acute distress Wt Readings from Last 1 Encounters: 02/28/23 78.5 kg (173 lb) , There is no height or weight on file to calculate BMI. MUSCULOSKELETAL: Gait: currently nonweightbearing Inspection/ Palpation: Left foot/ankle: mild swelling - surgical incisions healing well; Homans sign No NEUROVASCULAR: no focal deficits; sensation intact to light touch; toes well perfused SKIN: no erythema/cellulitis; no signs of infection. 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 No dorsi flexion or plantar flexion. - we reviewed the signs and symptoms of a DVT(blood clot) to include: calf pain, swelling of the lower leg, chest pain, shortness of breath. He will seek medical attention immediately if experiencing any of these. - followup in the office in 6 weeks with WB XR L ankle The diagnosis and treatment plan were discussed at length. The patient understands the plan and all questions were answered. documented in this encounter [facility] 05-04-2023 Instructions AIDAN Brown - 05/04/2023 2:00 PM EDT Anticipated postop rehab pending clinical/radiographic healing: * 8-12weeks: CAM boot, progressive weightbearing as tolerated, start physical therapy for reconditioning and gait training * >12 weeks: wean CAM boot as tolerated, progressive return to activity, bracing/orthotics as needed documented in this encounter [facility] 05-04-2023 Miscellaneous Notes Addended by: MAJO NELSON on: 05/04/2023 03:01 PM Modules accepted: Orders documented in this encounter [facility] 05-04-2023 Note Addended by: MAJO NELSON on: 05/04/2023 03:01 PM Modules accepted: Orders [facility] 05-04-2023 Note Addended by: MAJO NELSON on: 05/04/2023 03:01 PM Modules accepted: Orders [facility] 03-16-2023 History of Present illness Narrative Date of Visit: 03/16/2023 Date of Surgery: 02/28/23 Procedure: 1. Left arthroscopic ankle arthrodesis 2. Left subtalar arthrodesis 3. Left proximal tibia bone graft harvest Chief Complaint: Chief Complaint Patient presents with Left Ankle - Post Op Visit 2w2d Left arthroscopic ankle arthrodesis, Left subtalar arthrodesis,Left proximal tibia bone graft harvest (DOS 02/28/23) History of Present Illness: Preston Carrasquillo is a 67 y.o. male who presents today for a postoperative visit. Pain has been controlled. Rated 5/10. Compliant with non weight bearing and Eliquis. He states he puts his foot down to help balance but not putting weight or steps thru it. He denies fevers, chills, malaise. He denies calf pain, chest pain, shortness of breath. Physical Examination: GENERAL: alert, well-appearing, no acute distress Wt Readings from Last 1 Encounters: 02/28/23 78.5 kg (173 lb) , There is no height or weight on file to calculate BMI. MUSCULOSKELETAL: Gait: currently nonweightbearing Inspection/ Palpation: Left foot/ankle: mild swelling - surgical incisions healing well; Homans sign No NEUROVASCULAR: no focal deficits; sensation intact to light touch; toes well perfused SKIN: no erythema/cellulitis; no signs of infection. 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 - sutures were removed in clinic today - well padded short leg plaster splint was applied - continue pain management with rest/ice/elevation/bracing/NSAID as needed - weight bearing status and exercises were reviewed: Anticipated postop rehab plan pending clinical/radiographic healing: Anticipated postop rehab pending clinical/radiographic healing: * 0-2 weeks: splint, nonweightbearing * 2-5 weeks: splint, nonweightbearing * 5-8 weeks: CAM boot, weightbearing for transfers only * 8-12weeks: CAM boot, progressive weightbearing as tolerated, start physical therapy for reconditioning and gait training * >12 weeks: wean CAM boot as tolerated, progressive return to activity, bracing/orthotics as needed - we reviewed the signs and symptoms of a DVT(blood clot) to include: calf pain, swelling of the lower leg, chest pain, shortness of breath. He will seek medical attention immediately if experiencing any of these. - will continue Eliquis for DVT prophylaxis while immobilized and nonweightbearing - followup in the office in 3 weeks with GISSELLE de los santos The diagnosis and treatment plan were discussed at length. The patient understands the plan and all questions were answered. Associated Order(s): CAST APPLICATION Post-Procedure Diagnose(s): Arthritis of left ankle CAST APPLICATION Date/Time: 03/16/2023 1:00 PM Performed by: AIDAN Brown Authorized by: AIDAN Brown Injury Injury Location: ankle Location details: left ankle Pre-procedure assessment neurovascularly intact Range of motion: normal Procedure: Immobilization: splint Splint/Brace type: short leg Patient Extremity Position: neutral Supplies used: plaster Plaster rolls used: 4 Post-procedure assessment neurovascularly intact Range of motion: unchanged Patient tolerance: patient tolerated the procedure well with no immediate complications Consent: Consent was obtained prior to the procedure after discussion of the risks, benefits and alternatives, and expected outcomes were discussed with the patient. The possibilities of reaction to medication, bleeding, infection, the need for additional procedures, failure to diagnosis a condition, and creating a complication requiring operation were discussed with the patient. The patient concurred with the proposed plan, giving consent. documented in this encounter [facility] 03-16-2023 Instructions AIDAN Brown - 03/16/2023 1:00 PM EDT Cast or Splint Care Keep your cast or splint dry. Use a plastic bag over the cast or splint secured with tape when you shower to keep the site dry. Do not scratch under the cast or splint with any sharp object. Call the doctor if you have pain that is not controlled by pain medicine, new numbness or tingling, or if the cast or splint feels too tight. General Care: Continue to ice and elevate your left ankle to reduce swelling and pain. Anticipated postop rehab pending clinical/radiographic healing: * 0-2 weeks: splint, nonweightbearing * 2-5 weeks: splint, nonweightbearing * 5-8 weeks: CAM boot, weightbearing for transfers only * 8-12weeks: CAM boot, progressive weightbearing as tolerated, start physical therapy for reconditioning and gait training * >12 weeks: wean CAM boot as tolerated, progressive return to activity, bracing/orthotics as needed - Continue blood clot prevention medication Eliquis. Signs and Symptoms of a blood clot (calf pain, swelling of the lower leg, or Chest Pain, Shortness Of Breath). Seek medical attention immediately if experiencing any of these If you develop fever of greater than 101.5, pain that is not being controlled by the medication, or redness, swelling or drainage from your surgical site that is different or worse please call our office. For your next appointment: If you have been given a follow up appointment and require xrays next time please check in at registration on the 1st floor twenty minutes before your scheduled appointment in order to complete your xrays. If you have questions or concerns: Please call our office at [phone] or you can my chart any questions/ concerns. Fax- [phone] documented in this encounter [facility] 03-15-2023 Telephone encounter Note I sent a secure email to patient with letter to get a wheelchair. Your Message was sent securely. Date: 2023-03-15 09:14:31 Subject: letter for wheelchair Recipients: Attachments: [id number] MessageID: [id number] [facility] 03-15-2023 Miscellaneous Notes I sent a secure email to patient with letter to get a wheelchair. Your Message was sent securely. Date: 2023-03-15 09:14:31 Subject: letter for wheelchair Recipients: [email or web address] Attachments: [id number] MessageID: [id number] Patient needs a letter from the doctor confirming that the patient needs a wheelchair so that he can get one fully covered by the [facility] rather than paying a $75.00/month rental fee. Patient would like the letter emailed to him at [email or web address]. documented in this encounter [facility] 03-14-2023 Telephone encounter Note Patient needs a letter from the doctor confirming that the patient needs a wheelchair so that he can get one fully covered by the [facility] rather than paying a $75.00/month rental fee. Patient would like the letter emailed to him at [email or web address]. [facility] 03-01-2023 Note Formatting of this n ote might be different from the original. Problem: Patient Care Overview Goal: Plan of Care Review Outcome: Adequate for Discharge Goal: Individualization & Mutuality Outcome: Adequate for Discharge Goal: Discharge Needs Assessment Outcome: Adequate for Discharge Problem: Pain, Acute (Adult) Goal: Identify Related Risk Factors and Signs and Symptoms Description: Related risk factors and signs and symptoms are identified upon initiation of Human Response Clinical Practice Guideline (CPG) Outcome: Adequate for Discharge Goal: Acceptable Pain Control/Comfort Level Description: Patient will demonstrate the desired outcomes by discharge/transition of care. Outcome: Adequate for Discharge [facility] 03-01-2023 Miscellaneous Notes Problem: Patient Care Overview Goal: Plan of Care Review Outcome: Adequate for Discharge Goal: Individualization & Mutuality Outcome: Adequate for Discharge Goal: Discharge Needs Assessment Outcome: Adequate for Discharge Problem: Pain, Acute (Adult) Goal: Identify Related Risk Factors and Signs and Symptoms Description: Related risk factors and signs and symptoms are identified upon initiation of Human Response Clinical Practice Guideline (CPG) Outcome: Adequate for Discharge Goal: Acceptable Pain Control/Comfort Level Description: Patient will demonstrate the desired outcomes by discharge/transition of care. Outcome: Adequate for Discharge Discharge paper work was discussed and reviewed with patient. Patient aware of new scripts to get filled, medications to continue, as well as medications to stop taking. Patient made aware of signs and symptoms of infection following surgery, wound care, and precautions related to their surgery. Pt aware of when to seek emergency help/care. All questions were answered. Discharge to home with support from spouse and adult children. with provide transport home from hospital. 03/01/23 1129 Final Discharge Planning Discharge Disposition Home KASIE/DARIUS AVS Portion Completed Yes Additional Community Agency Name(s) no Plan Plan Discharge home with outpatient follow up Patient/Family In Agreement With Plan yes Problem: PT - Mobility Goal: Ambulation Description: Pt will ambulate 30 feet with least restrictive device with supervision NWB LLE to improve ability to navigate home environment. Outcome: Ongoing Goal: Stairs Description: Pt will ascend/descend entry stairs with railings with minimal assistance with least restrictive device NWB LLE to improve ability to perform functional mobility necessary in recommended discharge environment. Outcome: Ongoing Pt called stating that his foot was bleeding. RN noted pink drainage on the bed and shadowing on the left heel dressing. Pt also stated that there was some pain/ pressure on the heel. Dressing was reinforced, pain meds administered and pt was reassured. Pressure was alleviated from the heel using a pillow. We will continue to monitor pt and inform ortho. Problem: Mobility, Physical Impaired (Adult) Goal: Identify Related Risk Factors and Signs and Symptoms Description: Related risk factors and signs and symptoms are identified upon initiation of Human Response Clinical Practice Guideline (CPG) Outcome: Ongoing Goal: Enhanced Functionality Ability Description: Patient will demonstrate the desired outcomes by discharge/transition of care. Outcome: Ongoing Intervention: Modify Environment to Minimize Fall Risk Flowsheets (Taken 02/28/20232130) Safety Promotion/Fall Prevention: activity supervised nonskid shoes/slippers when out of bed Environmental Safety Modification: clutter free environment maintained Safety/Security Measures: alarm set On admission to [facility], from OR a dual RN initial assessment of skin condition was performed by Carissa Conner RN and WILLY Bonilla. Skin Assessment: Skin not within defined limits. POD #0 Left ankle incision Frandy Score: 17 LDA Added:Yes Carissa Conner RN Problem: Pain, Acute (Adult) Goal: Identify Related Risk Factors and Signs and Symptoms Description: Related risk factors and signs and symptoms are identified upon initiation of Human Response Clinical Practice Guideline (CPG) Outcome: Ongoing Goal: Acceptable Pain Control/Comfort Level Description: Patient will demonstrate the desired outcomes by discharge/transition of care. Outcome: Ongoing Problem: Mobility, Physical Impaired (Adult) Goal: Identify Related Risk Factors and Signs and Symptoms Description: Related risk factors and signs and symptoms are identified upon initiation of Human Response Clinical Practice Guideline (CPG) Outcome: Ongoing Goal: Enhanced Mobility Skills Description: Patient will demonstrate the desired outcomes by discharge/transition of care. Outcome: Ongoing Goal: Enhanced Functionality Ability Description: Patient will demonstrate the desired outcomes by discharge/transition of care. 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 Left arthroscopic ankle arthrodesis 2. Left subtalar arthrodesis 3. Left proximal tibia bone graft harvest 4. Fluoroscopy Anesthesia: GETA, regional block Findings: severe ankle and subtalar arthritis, no clinical signs of infection Estimated Blood Loss: 50cc Implants: [employer] T2 TTC nail (200mm x12mm) MTF demineralized bone matrix- 5cc Specimen: Right ankle distal tibia/talus bone culture Drains: none Complications: none apparent Indications: Preston Carrasquillo is a 67 year old male who presented with severe erosive changes of the Left ankle and subtalar joint due to chronic septic arthritis previously managed at an outside hospital. He had insidious onset of pain and medial ankle swelling in and underwent ankle joint washout and medial ankle abscess debridement with excision of the posterior tibial tendon 06/24/22; cultures grew MSSA and he was treated with doxycycline for 2 weeks. Overall improved but did have ongoing pain. Pain acutely worsened again in November 2022 and he was taken to the OR on 11/25/22 for arthroscopic washout of the left ankle; cultures grew MSSA again and he was treated with Rocephin daily infusion for 2 weeks. He subsequently presented to our clinic with worsening pain and deformity with XR/MRI showing erosive changes of the ankle and subtalar joints and abundant synovitis and joint effusion. On 12/30/22 he underwent debridement with bone biopsy and culture, and placement of antibiotic cement. Cultures remained negative, he has completed 6 weeks of Ancef per Infectious Disease recommendations for prior isolated MSSA from this region. The plan is for reconstruction with tibiotalocalcaneal fusion. The diagnosis and treatment plan were discussed at length. Surgical specifics; associated risks and benefits; treatment alternatives; outcome expectations; and rehabilitation plan were discussed thoroughly. Risks reviewed included but were not limited to pain, bleeding, infection, decreased range of motion, weakness, sensitive/unsightly scar, neurovascular injury, poor outcome, progression of ankle arthritis, and need for subsequent surgeries. The patient expressed understanding, agreed, and wished to proceed. Description of Operation: The patient was met and identified in the preoperative holding area. Informed consent was verified and the surgical site was marked with a surgical pen. A regional block was administered by the anesthesia provider. The patient was then transported to the operating room and placed supine on the operating table with all extremities padded appropriately. A team huddle was performed per protocol. Anesthesia (GETA) was induced and preoperative antibiotic (Ancef 2g) were administered by the anesthesia provider. A left thigh tourniquet was then applied, and the patient was positioned with small padded bump under the hip. The extremity was prepped and draped in sterile fashion and a surgical timeout was performed per protocol to again verify correct patient, surgical site and laterality, procedure, and appropriate instrumentation and implants. The limb was exsanguinated with an esmarch dressing and thigh tourniquet inflated to 275mmHg. Next attention was turned to the preparation of the arthroscopic ankle arthrodesis. Standard anteromedial and anterolateral ankle arthroscopic portals were established with a fabiola and spread technique utilizing an 11 blade and hemostat with care to protect the saphenous vein and superficial peroneal nerve. Diagnostic arthroscopy was performed and showed severe ankle arthritis with full thickness cartilage loss. The remaining cartilage on the distal tibia and talar dome was debrided with sharp chisel, curettes, and arthroscopic shaver. The subchondral bone was further fenestrated with an arthroscopic awl, chisel and juan c. Next we turned our attention to the subtalar arthrodesis. We made a 4cm lateral hindfoot incision starting just distal to the posterior border of the tip of the fibula extending toward the base of the 4th metatarsal. Sharp and blunt dissection were carried down and hemostasis was maintained with electrocautery. The peroneal tendons were retracted. We sharply cut through the subtalar capsule and interosseous ligaments and noted significant arthritis. The subtalar joint was distracted and the posterior and middle facets were debrided of articular cartilage with a sharp chisel and further fenestrated with an 1/8 osteotome. The wounds were copiously irrigated. Some bne fragments from the distal tibia and talus were sent for culture. At this point the ankle and subtalar joints were aligned, compressed and provisionally stabilized with a 3.2mm wire placed posteriorly out of the pathway of the nail. Position was confirmed with fluoroscopy. At this point the ankle and subtalar joints were in neutral dorsiflexion, just over 5 degrees valgus and slight 5deg external rotation. Next a 3cm plantar heel incision was made and the guidewire for the fusion nail was placed under fluoroscopic guidance and the entry reamer was passed. At this point we harvested proximal tibia bone graft. We sequentially reamed to 13mm and the proximal bone graft reamings were preserved for cancellous autograft. We collected @2-3cc of graft. The cancellous graft along with some of the demineralized bone matrix was placed at the ankle fusion site through the anteromedial portal as well as through the lateral incision to the subtalar fusion site. Next the fusion sites were secured. We placed a [employer] T2 (200mm x12mm) tibiotalocalcaneal arthrodesis nail. 1cm incisions were made and the 5mm lateral to medial talar interlocking screw and the two medial to lateral tibial interlocking screws were placed. The ankle joint was then further compressed using the internal compression screw. External compression was then applied to compress the subtalar joint and the lateral to medial and posterior calcaneal interlocking screws were placed. Fluoroscopy and direct visualization demonstrated appropriate alignment and hardware placement with good compression of the joint surfaces. The ankle was in neutral with the hindfoot in slight valgus and the foot in slight external rotation. The tourniquet was deflated after 115 minutes. The wounds were irrigated and hemostasis was maintained. The scope portal and percutaneous incisions were closed with 3.0 ethilon sutures. The plantar foot and lateral subtalar incisions were closed with interrupted 3.0 vicryl deep dermal sutures followed by 3.0 ethilon mattress stitches. Sterile dressings and a well padded L&U splint were applied with the ankle in neutral position. The patient tolerated the procedure well with no apparent complications, was awakened from anesthetic in the operating room, and transported to the PACU in stable condition. The patient will remain nonweightbearing and followup in 2weeks for wound check. He will continue on Eliquis for 1 month for DVT prophylaxis as well as continue factor replacement per Hematology recommendations. Anticipated postop rehab pending clinical/radiographic healing: * 0-2 weeks: splint, nonweightbearing * 2-5 weeks: splint, nonweightbearing * 5-8 weeks: CAM boot, weightbearing for transfers only * 8-12weeks: CAM boot, progressive weightbearing as tolerated, start physical therapy for reconditioning and gait training * >12 weeks: wean CAM boot as tolerated, progressive return to activity, bracing/orthotics as needed Orthopedic Surgery Plan of Care Note Preston Carrasquillo is a 67 y.o. male now s/p left ankle arthroscopy and TTC nail with Dr. Moreira on 02/28/23. - FU Cx - Imaging: none - Activity: Advance as tolerated. PT/OT - Weight Bearing Status: NWB LLE in splint - Pain: multimodal - Diet: Advance as tolerated - Abx: Ancef x24 hrs - DVT PPx: SCD's, Eliquis 2.5mg BID x4 weeks to start POD1 - Dressing: splint - Drains: None - Rizzo: None - Dispo: Pending pain control, PT/OT. 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] PROCEDURE PERFORMED Procedure(s) (LRB): ARTHROSCOPY ANKLE W/ ARTHRODESIS (Left) SUBTALAR ARTHRODESIS (Left) HARVEST GRAFT BONE LARGE DONOR AREA - PROXIMAL TIBIA (Left) PRIMARY CLOSURE Yes INTRAOPERATIVE FINDINGS ankle/subtalar arthritis, no signs of ongoing infection [employer] T2 TTC nail: 200mm x12mm; MTF Demineralized bone matrix 5cc SURGEON Surgeon(s) and Role: * Cristopher Moreira MD - Primary ANESTHESIOLOGIST Anesthesiologist: Anant Chavez DO Anesthesia Fellow: Baljit Nuñez MD SURGICAL STAFF Billing Spec: Jaren Allen RN Retail Advertising Sales Manager: Mi Renee COMPLICATIONS None ESTIMATED BLOOD LOSS 50 ml SPECIMENS Microbiology specimen sent ID Type Source Tests Collected by Time Destination A : Left Ankle Tissue TISSUE FUNGUS CULTURE, ACID FAST CULTURE, TISSUE, ANAEROBE CULTURE, BACTERIAL CULTURE AND DIRECT SMEAR, LESION, TISSUE, DEVICE Cristopher Moreira MD 02/28/2023 1210 Cristopher Moreira MD February 28, 2023 1:01 PM Anesthesia at bedside to perform a peripheral nerve block to the LLE. Bedside timeout performed. rrl Pt became very restless during procedure. Seizures pads placed on rails. VSS documented in this encounter [facility] 03-01-2023 Note Formatting of this n ote might be different from the original. Discharge paper work was discussed and reviewed with patient. Patient aware of new scripts to get filled, medications to continue, as well as medications to stop taking. Patient made aware of signs and symptoms of infection following surgery, wound care, and precautions related to their surgery. Pt aware of when to seek emergency help/care. All questions were answered. [facility] 03-01-2023 History of Present illness Narrative Acute Occupational Therapy Evaluation and Discharge Prior to Admission AM-PAC Score: PRIOR LEVEL AM-PAC Activity Raw Score: 24 Current AM-PAC score(s): CURRENT AM-PAC Activity Raw Score: 21 Based on the above AM-PAC score(s) and OT clinical judgment, discharge destination recommendation is: Home Barriers to discharge home: Patient needs assistance with functional mobility, Patient needs assistance with IADLs (see note below), Patient needs assistance with ADLs, Pain management concerns, Assistance needed to ensure precautions are maintained (see note below) Mobility equipment available at home: axillary crutches, 2 wheeled walker, manual wheelchair ADL equipment available at home: shower chair Equipment recommendations for discharge: none (pt reported having all the equipment he needs at home) Current therapy frequency recommendation(s) in acute: no therapy warranted Precautions and Weightbearing Status: OT Existing Precautions/Restrictions: fall, weight bearing, CIWA (bleeding) Patient Safety Communication Prior to Visit: Nursing Left Lower Extremity: non-weight bearing Subjective: I am in too much pain, I can't! Pain: General Pain Documentation (Adult, OB, Peds) Presence of Pain: complains of pain/discomfort Pain Location: ankle, left DVPRS (Defense and Veterans Pain Rating Scale) DVPRS: Rest: 9- severe pain DVPRS: Activity: 9- severe pain Home Setting Residence: House Lives With: spouse First floor setup: bedroom, walk-in shower Number of stairs to enter home: 3 Number of stairs in home: 0- pt remains on 1st floor Stair Railings at Home: entry - with rail Mobility Equipment Available: axillary crutches, 2 wheeled walker, manual wheelchair ADL Equipment Available: shower chair Previous Level of Function Prior level ADL Overview: Independent with all ADLs Bed Mobility/Transfers: independent Ambulation Skills: independent Assistive Device: none used Level of Ambulation: community IADL History IADLs: independent Primary Language: South [place] Objective/Observation: Vitals/Vitals Responses to Treatment: Pt experienced no adverse reactions to therapy. O2 Device: room air Vision Screen Currently wearing corrective lenses: Yes Speech Speech: no gross deficits noted Hearing Hearing: no gross deficits noted Cognition Overall Cognitive Status: Within Functional Limits Arousal/Alertness: Appropriate responses to stimuli Orientation Level: Oriented X4 Following Commands: Follows all commands and directions without difficulty Cognition Comments: pleasant and cooperative. pt self limiting ADLs: ADL Anticipated Performance (ADLs not directly observed this session): Eating, Grooming, Bathing, UE Dressing, LE Dressing, Toileting Eating Assistance: Independent Grooming Assistance: Modified independent Grooming Location: edge of bed Grooming Deficit: Retrieval of items Bathing Assistance: Stand by Bathing Location: seated on shower chair UE Dressing Assistance: Modified independent UE Dressing Location: edge of bed LE Dressing Assistance: Minimal LE Dressing Deficit: Increased time to complete, Activity tolerance, Generalized weakness, Pain, Balance, Pull up over hips LE Dressing Skilled Rationale (Verbal/Tactile/Visual/Demonstrat ion): Requires assistive device for steadying Toilet Assistance: Contact guard assist Toileting Deficit: Increased time to complete, Activity tolerance, Pain, Balance Extremity Assessments: Hand Composition Tile Layer Strength Hand Composition Tile Layer Strength Interpretation: Left WNL, Right WNL RUE Assessment RUE Assessment: Within Functional Limits LUE Assessment LUE Assessment: Within Functional Limits Balance: Sitting Balance Static Sitting-Level of Assistance: Supervision Dynamic Sitting-Level of Assistance: Supervision Standing Balance Static Standing-Level of Assistance: Contact guard Dynamic Standing-Level of Assistance: Contact guard Standing-Balance Support: 2 wheeled walker Mobility Assessment: Supine to Sit Mobility [place] Level: Supine->Sit: contact guard assist Bed Features/Set-up: Supine->Sit: Head of bed elevated Skilled Rationale: Verbal cues, Initiation and execution of task Skilled Intervention/Details: Supine->Sit: assist with LLE to EOB Sit to Supine Mobility [place] Level: Sit->Supine: contact guard assist Bed Features/Set-up: Sit->Supine: Head of bed elevated Skilled Rationale: Verbal cues, Initiation and execution of task Skilled Intervention/Details: Sit->Supine: assist with LLE back into bed Transfer Assessment: Sit to Stand Transfer [place] Level: Sit->Stand: minimum assist (75% patient effort) Assistive Device: Sit->Stand: 2 wheeled walker Skilled Rationale: Verbal cues, Sequencing, Hand placement, Maintain precautions Skilled Intervention/Details: Sit->Stand: cues for hand placement and sequencing. cues to maintain NWB Stand to Sit Transfer [place] Level: Stand->Sit: contact guard assist Assistive Device: Stand->Sit: 2 wheeled walker Skilled Rationale: Verbal cues, Hand placement, Controlled descent for sitting Skilled Intervention/Details: Stand->Sit: cues for slow descent Functional Mobility: Functional Mobility [place] Level: Functional Mobility/Gait: contact guard assist Assistive Device: Functional Mobility/Gait: 2 wheeled walker Functional Mobility Distance: Distance needed to access BSC/chair Functional Mobility Deficits: Activity tolerance, Pain Functional Mobility Skilled Rationale: Cues for increased safety, Walker management/safety Skilled Intervention/Details - Functional Mobility/Gait: pt took side hop to HOB. pt declined further functional mobility due to pain CURRENT AM-[facility] Daily Activity Inpatient Short Form Putting on/Taking Off Lower Body Clothin - A Little Assistance Bathin - A Little Assistance Toiletin - A Little Assistance Putting on/Taking Off Upper Body Clothin - No Assistance Groomin - No Assistance Eatin - No Assistance CURRENT AM-[facility] Activity Raw Score: 21 CURRENT AM-[facility] Activity Functional Limitation/Modifier: 32.79% Currently Impaired in Daily Activity - Assessment & Plan: Patient was admitted for L ankle arthroscopy and TTC nail with Dr. Moreira on 02/28 and seen for therapy evaluation related to education and discharge recommendations. Pt is 67 y/o male who elected is POD1 L ankle arthroscopy and TTC nail. Pt reported no OT concerns upon therapist exit, as pt reported he has the appropriate home set up and assistance at home for discharge. OT attempted to see pt this AM at [id number] and pt was very drowsy and unable to maintain eyes awake during home set up questions. Therapist re-entered with PT due to drowsiness and reported pain this AM. Pt has no further acute OT concerns. Discharge acute OT at this time. Past Medical History: Diagnosis Date Adopted Ankle joint pain Essential hypertension, benign Flat foot Hernia, umbilical Hyperlipidemia Ingrown toenail Low back pain Male erectile dysfunction Pain in left shoulder Pain in right shoulder Pityriasis versicolor RLS (restless legs syndrome) Past Surgical History: Procedure Laterality Date ARTHROSCOPY ANKLE W/ ARTHRODESIS Left 02/28/2023 Laterality: Left; Surgeon: Cristopher Moreira MD; Location: [facility] ARTHRODESIS TARSAL JOINT Left 02/28/2023 Laterality: Left; Surgeon: Cristopher Moreira MD; Location: [facility] OR HARVEST GRAFT BONE LARGE DONOR AREA Left 02/28/2023 Laterality: Left; Surgeon: Cristopher Moreira MD; Location: [facility] ARTHROSCOPY ANKLE W/ DEBRIDEMENT Left 12/30/2022 Laterality: Left; Surgeon: Cristopher Moreira MD; Location: [facility] OR I&D BONE CORTEX ANKLE LEG Left 12/30/2022 Laterality: Left; Surgeon: Cristopher Moreira MD; Location: [facility] OR INSERTION IMPLANT NONBIODEGRADABLE DRUG DELIVERY Left 12/30/2022 Laterality: Left; Surgeon: Cristopher Moreira MD; Location: [facility] ARTHROSCOPY SUBTALAR JOINT W/ DEBRIDEMENT Left 12/30/2022 Laterality: Left; Surgeon: Cristopher Moreira MD; Location: [facility] OR INSERTION NEUROSTIMULATOR ELECTRODE SPINAL PERCUTANEOUS N/A 07/13/2021 Laterality: N/A; Surgeon: Tyrell Weinberg DO; Location: [facility] OR INSERTION REPLACEMENT NEUROSTIMULATOR GENERATOR SPINAL N/A 07/13/2021 Laterality: N/A; Surgeon: Tyrell Weinberg DO; Location: [facility] ANALYSIS/PROGRAMMING NEUROSTIMULATOR GENERATOR SYSTEM N/A 07/13/2021 Laterality: N/A; Surgeon: Tyrell Weinberg DO; Location: [facility] ARTHROSCOPY SHOULDER W/ ROTATOR CUFF REPAIR Left 10/27/2017 Laterality: Left; Surgeon: Majo Phan MD; Location: [facility] ARTHROSCOPY SHOULDER W/ SUBACROMIAL DECOMPRESSION/ACROMIOPLASTY ADD-ON Left 10/27/2017 Laterality: Left; Surgeon: Majo Phan MD; Location: [facility] ARTHROSCOPY SHOULDER W/ DEBRIDEMENT Left 10/27/2017 Laterality: Left; Surgeon: Majo Phan MD; Location: [facility] HERNIA REPAIR SHOULDER SURGERY Right x2 Patient Instruction/Education this session: Patient Instruction: role of OT Plan for next session: discharge acute OT Acute OT Goals Notes from 03/01/2023 12:28 AM through 03/01/2023 12:28 PM Educate patient on importance of normalizing daily routines while inpatient to maintain current level of independence with ADLs. - Patient verbalized good understanding. - Goal met Patient will demonstrate ability to follow surgical precautions and complete all needed self-care tasks with/without family assistance and/or necessary assistive devices for safe discharge home. - Patient demonstrated well. - Goal met OT treatment consisted of the following to work and progress towards the above goal(s): OT Evaluation and Treatment Time OT Evaluation (Moderate) Time Entry: 16 Evaluating Therapist: DIMITRIS Quevedo, OTR/L #[id number] Additional Details: Co-evaluation/co-treatment performed?: Yes, simultaneous billable skilled care This co-evaluation session performed between OT and PT was beneficial, necessary and provided distinct services in establishing this person's individual plan of care. Medical complexity with functional deficits necessitated two skilled therapy disciplines working concurrently to determine each discipline's goals. This co-treatment was medically necessary due to patient's: Alertness/arousal I was assisted by FELIPA Coe for today's session. and I used facemask, protective eye shield, and gloves in today's patient interaction. OT Evaluation Complexity Occupational Profile and Client History: Moderate - expanded history Assessment of Occupational Performance: Low (1-3 performance deficits) Clinical Decision/Performance Deficits: Low (problem-focused assessments w/limited treatment options) Time In: 0852 Time Out: 1001 Total Visit Time: 69 minutes Total Treatment Time (skilled, billable minutes): 16 minutes Patient location at end of session: bed with head of bed elevated Alarms on at end of session: bed alarm Needs in reach. Upon discontinuation of Acute Care Occupational Therapy Services or patient discharge from the hospital this note represents the current Occupational Therapy Discharge Summary. Images from the original note were not included. Acute Physical Therapy Orthopedic Evaluation Prior to Admission AMPAC score(s): PRIOR LEVEL AM-PAC Mobility Raw Score: 24 Current AM-PAC score(s): CURRENT AM-PAC Mobility Raw Score: 16 Based on the above AM-PAC score(s) and PT clinical judgment, patient is a good candidate for discharge to Home Barriers to discharge home: None Mobility equipment available at home: axillary crutches, 2 wheeled walker, manual wheelchair ADL equipment available at home: Equipment needed for discharge: none Current therapy frequency recommendation in acute: Therapy Frequency: 5 times a week Precautions and Weightbearing Status: Patient Safety Communication Prior to Visit: Nursing Referring Physician: Eri Surgery date: 02/28/23 Type of Surgery: (left ankle arthroscopy and TTC nail) Existing Precautions/Restrictions: weight bearing Left Lower Extremity: non-weight bearing Bathroom Privileges With bedside commode and staff assist Subjective: Pt reports he has had a number of prior foot/ankle surgery and this is the most painful Reports he is planning to go home today. Pain: General Pain Documentation (Adult, OB, Peds) Presence of Pain: complains of pain/discomfort Pain Location: ankle, left Pain Management Interventions: elevation, cold application Assessment: Patient was evaluated for (left ankle arthroscopy and TTC nail) . Surgery performed by Dr. Moreira. Mobility sig inhibited by pain today. Tolerated transfer training safely with cues for body mechanics and hand placement and appears able to maintain NWB however only able to tolerate sidestepping with walker d/t pain. Will work toward improving gait tolerance and address entry steps as able. Exam findings include Gait/Locomotion, Transfers, Pain. These impairments contribute to functional limitations including Decreased ambulation distance/endurance, Ambulation/locomotion pain. Current clinical presentation is Evolving - changing/inconsistent clinical characteristics (Moderate). Patient history factors impacting Plan Of Care include pain. Patient will benefit from skilled physical therapy to address these impairments, functional limitations, and participation restrictions and has good rehab potential to achieve therapy goals. Home Setup/Prior Level of Function: Home Setting Residence: House Lives With: spouse First floor setup: bedroom, walk-in shower Number of stairs to enter home: 3 Number of stairs in home: 0- pt remains on 1st floor Stair Railings at Home: entry - with rail Mobility Equipment Available: axillary crutches, 2 wheeled walker, manual wheelchair Previous Level of Function Prior level ADL Overview: Independent with all ADLs Bed Mobility/Transfers: independent Ambulation Skills: independent Assistive Device: none used Level of Ambulation: community Objective/Observation: Past Medical History: Diagnosis Date Adopted Ankle joint pain Essential hypertension, benign Flat foot Hernia, umbilical Hyperlipidemia Ingrown toenail Low back pain Male erectile dysfunction Pain in left shoulder Pain in right shoulder Pityriasis versicolor RLS (restless legs syndrome) Past Surgical History: Procedure Laterality Date ARTHROSCOPY ANKLE W/ ARTHRODESIS Left 02/28/2023 Laterality: Left; Surgeon: Cristopher Moreira MD; Location: [facility] ARTHRODESIS TARSAL JOINT Left 02/28/2023 Laterality: Left; Surgeon: Cristopher Moreira MD; Location: [facility] OR HARVEST GRAFT BONE LARGE DONOR AREA Left 02/28/2023 Laterality: Left; Surgeon: Cristopher Moreira MD; Location: [facility] ARTHROSCOPY ANKLE W/ DEBRIDEMENT Left 12/30/2022 Laterality: Left; Surgeon: Cristopher Moreira MD; Location: [facility] OR I&D BONE CORTEX ANKLE LEG Left 12/30/2022 Laterality: Left; Surgeon: Cristopher Moreira MD; Location: [facility] OR INSERTION IMPLANT NONBIODEGRADABLE DRUG DELIVERY Left 12/30/2022 Laterality: Left; Surgeon: Cristohper Mroeira MD; Location: [facility] OR ARTHROSCOPY SUBTALAR JOINT W/ DEBRIDEMENT Left 12/30/2022 Laterality: Left; Surgeon: Cristopher Moreira MD; Location: [facility] INSERTION NEUROSTIMULATOR ELECTRODE SPINAL PERCUTANEOUS N/A 07/13/2021 Laterality: N/A; Surgeon: Tyrell Weinberg DO; Location: [facility] INSERTION REPLACEMENT NEUROSTIMULATOR GENERATOR SPINAL N/A 07/13/2021 Laterality: N/A; Surgeon: Tyrell Weinberg DO; Location: [facility] ANALYSIS/PROGRAMMING NEUROSTIMULATOR GENERATOR SYSTEM N/A 07/13/2021 Laterality: N/A; Surgeon: Tyrell Weinberg DO; Location: [facility] ARTHROSCOPY SHOULDER W/ ROTATOR CUFF REPAIR Left 10/27/2017 Laterality: Left; Surgeon: Majo Phan MD; Location: [facility] ARTHROSCOPY SHOULDER W/ SUBACROMIAL DECOMPRESSION/ACROMIOPLASTY ADD-ON Left 10/27/2017 Laterality: Left; Surgeon: Majo Phan MD; Location: [facility] ARTHROSCOPY SHOULDER W/ DEBRIDEMENT Left 10/27/2017 Laterality: Left; Surgeon: Majo Phan MD; Location: [facility] HERNIA REPAIR SHOULDER SURGERY Right x2 Vitals/Responses to Treatment: Denies dz/LH/sob. Primarily pain limited today. Cognition Overall Cognitive Status: Within Functional Limits Arousal/Alertness: Appropriate responses to stimuli Orientation Level: Oriented X4 Following Commands: Follows all commands and directions without difficulty Extremity Assessments: Range of Motion RLE: WFL LLE: WFL (except L ankle immobilzied) Strength RLE: WFL LLE: (knee ext 3/5, pain limited) Balance: Sitting Balance Static Sitting-Level of Assistance: Supervision Dynamic Sitting-Level of Assistance: Supervision Standing Balance Static Standing-Level of Assistance: Contact guard Dynamic Standing-Level of Assistance: Contact guard Standing-Balance Support: 2 wheeled walker Mobility Assessment: Supine to Sit Mobility [place] Level: Supine->Sit: contact guard assist Skilled Intervention/Details: Supine->Sit: LLE Sit to Supine Mobility [place] Level: Sit->Supine: contact guard assist Skilled Intervention/Details: Sit->Supine: LLE Transfer Assessment: Sit to Stand Transfer [place] Level: Sit->Stand: minimum assist (75% patient effort) Assistive Device: Sit->Stand: 2 wheeled walker Skilled Intervention/Details: Sit->Stand: cues for NWB and hand placement, appears to maintain appropriately Stand to Sit Transfer [place] Level: Stand->Sit: contact guard assist Skilled Intervention/Details: Stand->Sit: cues to reach back for bed, appears to maintain NWB appropriately. Gait: Gait Assessment [place] Level: Gait: contact guard assist Assistive Device: Gait: 2 wheeled walker Ambulation Distance (Feet): 1 Skilled Intervention/Details - Gait: sidestepping with good NWB compliance. Pt declined to ambulate further citing pain and requested to go back to bed. Stairs: Stairs Assessment [place] Level: Stair Negotiation: not tested Skilled Intervention/Details - Stairs: pt reports his son can bump him up his home steps in w/c if needed. AMPAC Score: CURRENT -[facility] Basic Mobility Inpatient Short Form Turning over in bed: 4 - No Assistance Sitting/standing from chair: 3 - A Little Assistance Moving from lying on back to sittin - A Little Assistance Moving to and from bed to chair: 3 - A Little Assistance Walk in hospital room: 2 - A Lot of Assistance Climbing 3-5 steps with a railin - Total Assistance CURRENT [facility] Mobility Raw Score: 16 CURRENT [facility] Mobility Functional Limitation/Modifier: 54.16% Currently Impaired in Basic Mobility - CK Interventions: Patient Instruction/Education this session: NWB status, elevation. Verbalized understanding. Patient provided with Home Exercise Program: No Plan: Planned Therapy Interventions: gait training, transfer training, functional activity tolerance Plan for next session: increase gait distance, trial stairs pending pain control PT Eval Care Plan & Goals (Active) PT - Mobility Dates: Start: 03/01/23 Ambulation Dates: Start: 03/01/23 Expected End: 03/08/23 Description: Pt will ambulate 30 feet with least restrictive device with supervision NWB LLE to improve ability to navigate home environment. Stairs Dates: Start: 03/01/23 Expected End: 03/08/23 Description: Pt will ascend/descend entry stairs with railings with minimal assistance with least restrictive device NWB LLE to improve ability to perform functional mobility necessary in recommended discharge environment. Evaluating Therapist: Saravanan Cornell PT Additional Details: This co-evaluation session performed between PT and OT was beneficial, necessary and provided distinct services in establishing this person's individual plan of care. Medical complexity with functional deficits necessitated two skilled therapy disciplines working concurrently to determine each discipline's goals. This co-treatment was medically necessary due to patient's: pain level I used gloves and facemask in today's patient interaction. Evaluation Complexity Components History: High (3 personal factors and/or comorbidities) Body Systems Review: Moderate (Addressing a total of 3 or more elements) Clinical Presentation: Evolving - changing/inconsistent clinical characteristics (Moderate) Clinical Decision Making: Moderate Time In: 0945 Time Out: 1007 Total Visit Time: 22 minutes Total Treatment Time (skilled, billable minutes): 22 minutes PT treatment consisted of the following to progress towards the above goal(s): PT Evaluation and Treatment Time PT Evaluation (Moderate) Time Entry: 14 Therapeutic Activity Time Entry: 8 Patient location at end of session: bed with head of bed elevated and and LLE elevated Patient safety measures at end of session: bed alarm and RN aware Needs in reach. Upon discontinuation of Acute Care Physical Therapy Services or patient discharge from the hospital this note represents the current Physical Therapy Discharge Summary. ORTHOPEDIC SURGERY PROGRESS NOTE POD #1 -- s/p left ankle arthroscopy and TTC nail No acute events overnight. Dressing reinforced overnight by nursing 2/2 shadowing. Patient overall doing well; reporting somewhat bothersome LLE pain. Denies chest pain, shortness of breath, nausea/vomiting. Dr. Moreira at bedside and plan of care discussed with patient. All questions and concerns addressed. Vitals: 03/01/23 1116 BP: 128/68 Pulse: 95 Resp: 18 Temp: 98.4 F (36.9 C) SpO2: 94% WBC/Hgb/Hct/Plts: 8.33/11.4/34.7/186 (03/01 305) Na/K+/Phos/Mg/Ca: 129/3.5/--/--/-- (03/01 305) PHYSICAL EXAM: Alert, oriented x 3, fluent speech Mild agitation Musculoskeletal exam: LLE Zbigniew wrap/splint C/D/I - reinforced overnight, elevated on yellow foam ramp No calf tenderness present Sensation intact to light touch Wiggles toes Brisk capillary reflex A/P: Patient is POD #1 from left ankle arthroscopy and TTC nail 1. Physical Therapy- progressing well 2. Weight Bearing Status: NWB LLE, encouraged elevation using yellow foam ramp 3. Diet - ADAT 4. Pain regimen - PO analgesics PRN 5. DVT Prophylaxis - Eliquis 2.5mg every 12 hours x 4 weeks, SCDs 6. Dressing- LLE Zbigniew/splint to remain in place 7. 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 DIAGNOSIS: L ankle arthritis Pain following surgery or procedure (ICD10 G89.18) DURATION 7 day limit exceeded due to pain that is expected to persist longer than 7 days. Pathology of pain: Surgery AND/OR DOSE 30 MED average exceeded due to: Major Orthopedic Surgery Reason for exceeding the 30 MED average: Pain after orthopedic surgery not yet acceptably controlled by non-opioid medication. This is the lowest dose need for his medical condition. He has been advised of the benefits and risks of narcotics, including the potential for addiction. His account was reviewed on the [place] [employer] Reporting System: Nano ePrint. The controlled substance medication history was found to be aligned with his health and medication history. He has had no adverse outcomes with this medication. Queenie BERMUDEZ Certified Nurse Practitioner- Orthopedic Surgery Orthopaedic Surgery Progress Note HPI: Preston Carrasquillo is a 67 y.o. year old male. Subjective: NAEO. Some shadowing noted by nursing this AM, stable. Patient reports quite a bit of pain this AM, improved with medications. Tolerating PO. No N/V. Ready to go home today. Vitals Temp: [97.1 F (36.2 C)-98.5 F (36.9 C)] 97.4 F (36.3 C) Pulse (Heart Rate): [74-103] 91 Resp Rate: [5-36] 18 BP: (98-180)/(54-101) 119/61 O2 Sat (%): [94 %-100 %] 94 % Weight: [78.5 kg (173 lb)] 78.5 kg (173 lb) Oxygen Therapy O2 Sat (%): 94 % O2 Device: room air Flow (L/min): 3 Fluid Management (24hrs): Intake/Output last 3 shifts: I/O last 3 completed shifts: In: 2860.8 [P.O.:932; I.V.:1633.2; IV Piggyback:295.6] Out: 800 [Urine:800] WBC/Hgb/Hct/Plts: 8.33/11.4/34.7/186 (03/01 305) Na/K+/Phos/Mg/Ca: 129/3.5/--/--/-- (03/01 305) Bun/Creat/Cl/CO2/Glucose: 12/0.81/97//118 (03/01 305) Physical Exam General Appearance: alert, cooperative, appears stated age Chest: Nonlabored breathing, equal chest rise. LLE: - Splint in place, mild shadowing. Intact - Wiggles toes gently, SILT. WWP Labs WBC/Hgb/Hct/Plts: 8.33/11.4/34.7/186 (03/01 305) Na/K+/Phos/Mg/Ca: 129/3.5/--/--/-- (03/01 305) Bun/Creat/Cl/CO2/Glucose: 12/0.81///118 (03/01 305) New Imaging No new Assessment and Plan Preston Carrasquillo is a 67 y.o. male now s/p left ankle arthroscopy and TTC nail with Dr. Moreira on 02/28/23. - FU Cx - Imaging: none - Activity: Advance as tolerated. PT/OT - Weight Bearing Status: NWB LLE in splint - Pain: multimodal - Diet: Advance as tolerated - Abx: Ancef x24 hrs - DVT PPx: SCD's, Eliquis 2.5mg BID x4 weeks to start POD1 - Dressing: splint - Drains: None - Rizzo: None - Dispo: Pending pain control, PT/OT. Anticipate discharge to home POD1 - Follow-up: Patient will need to follow up in clinic 2 weeks post-op for wound check Chaparro Hickman MD Orthopaedic Surgery documented in this encounter [facility] 03-01-2023 Hospital course Narrative Discharge Summary Name: Preston Carrasquillo Age: 67 y.o. Birthday: 1955 Admit Date: 02/28/2023 7:56 AM Discharge Date: 03/01/2023 Admission Information Admitting Physician: Cristopher Moreira MD Discharge Information Discharge Physician: Dr. Cristopher Moreira Problem List Active Hospital Problems Diagnosis Arthritis of left ankle Resolved Hospital Problems No resolved problems to display. Brief Summary of Hospital Course for Discharge Summary: Mr. Preston Carrasquillo is a 67 y.o. year old male who initially presented with severe erosive changes of the Left ankle and subtalar joint due to chronic septic arthritis previously managed at an outside hospital. He had insidious onset of pain and medial ankle swelling in Jun 2022 and underwent ankle joint washout and medial ankle abscess debridement with excision of the posterior tibial tendon 06/24/22; cultures grew MSSA and he was treated with doxycycline for 2 weeks. Overall improved but did have ongoing pain. Pain acutely worsened again in November 2022 and he was taken to the OR on 11/25/22 for arthroscopic washout of the left ankle; cultures grew MSSA again and he was treated with Rocephin daily infusion for 2 weeks. He subsequently presented to our clinic with worsening pain and deformity with XR/MRI showing erosive changes of the ankle and subtalar joints and abundant synovitis and joint effusion. On 12/30/22 he underwent debridement with bone biopsy and culture, and placement of antibiotic cement. Cultures remained negative, he has completed 6 weeks of Ancef per Infectious Disease recommendations for prior isolated MSSA from this region. Options for management were discussed with Mr. Preston Carrasquillo who elected to proceed with surgical intervention. Once pre-operative clearance was received, Mr. Preston Carrasquillo underwent a left ankle arthroscopy and TTC nail performed on 02/28/[address] Moreira. The patient tolerated the procedure well and no intra-operative complications were noted. Post-operative imaging and assessment proved stable. 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 Pain was managed with PO and IV pain medications. They tolerated a regular diet with no nausea or vomiting. Once approval was received, he was discharged in stable condition. Follow-up with Orthopedic Surgery is outlined in the discharge instructions. I spent 10 minutes on discharge management. Brief Summary of Consults for Discharge Summary: Brief Summary of Procedures and Imaging for Discharge Summary: Summary of last selected lab results and date obtained: Lab Results Component Value Date WBC 8.33 03/01/2023 HGB 11.4 (L) 03/01/2023 HCT 34.7 (L) 03/01/2023 PLATELET 186 03/01/2023 MCV 95.6 (H) 03/01/2023 Lab Results Component Value Date SODIUM 129 (L) 03/01/2023 POTASSIUM 3.5 03/01/2023 CHLORIDE 97 (L) 03/01/2023 CO2 23 03/01/2023 BUN 12 03/01/2023 CREATSERUM 0.81 03/01/2023 GLUCOSE 118 (H) 03/01/2023 Lab Results Component Value Date ALT 11 02/22/2023 AST 18 02/22/2023 ALKPHOS 63 02/22/2023 BILITOTAL 1.0 02/22/2023 Brief Summary of Labs for Discharge Summary: No discharge procedures on file. Current Outpatient Meds: Medication List for when you go home START taking these medications apixaban 2.5 MG TABS Take 1 tablet by mouth every 12 hours. Commonly known as: ELIQUIS For diagnoses: Arthritis of left subtalar joint Cyclobenzaprine 5 MG TABS Take 1 tablet by mouth 3 times daily as needed for Muscle spasms. Commonly known as: FLEXERIL docusate 100 MG CAPS Take 1 capsule by mouth 2 times daily. Gabapentin 100 MG CAPS Take 1 capsule by mouth 3 times daily for 14 days. Commonly known as: NEURONTIN Ondansetron 4 MG TABS Take 1 tablet by mouth every 6 hours as needed for Nausea / Vomiting. Commonly known as: ZOFRAN oxyCODONE 5 MG TABS Take 1-2 tablets by mouth every 4 hours as needed for Moderate Pain or Severe Pain for up to 7 days. Doctor's comments: [facility] reviewed 03/01/2023. For management of acute postoperative pain in setting of extensive ortho surgery. Commonly known as: ROXICODONE For diagnoses: Acute postoperative pain CHANGE how you take these medications Acetaminophen 325 MG tablet Take 2 tablets by mouth every 6 hours. Commonly known as: TYLENOL What changed: How often you have reported taking this medication has changed You should now only take this medication as needed additional instructions CONTINUE taking these medications baclofen 20 MG TABS Take 1 tablet by mouth 2 times daily. Commonly known as: LIORESAL lidocaine 5 % PTCH patch Place 1 patch on skin every 24 hours. Max of 12 hours of application then remove. Commonly known as: LIDODERM Lisinopril 2.5 MG TABS Take 1 tablet by mouth daily. Commonly known as: PRINIVIL rOPINIRole 2 MG TABS Take 1 tablet by mouth 2 times daily. Commonly known as: REQUIP traZODone 100 MG TABS Take 1 tablet by mouth at bedtime. Commonly known as: DESYREL STOP taking these medications naproxen 500 MG TABS Commonly known as: NAPROSYN oxyCODONE-acetaminophen 5-325 MG per tablet Commonly known as: PERCOCET Follow-up: No follow-up provider specified. Upcoming Appointments (up to five)-Some appointments for Medical Center outpatient clinics or diagnostic testing locations are not displayed below Provider Department Dept Phone 03/16/2023 1:00 PM [facility] Arrive at: Arrive to 1st Floor Registration Desk [phone] 04/13/2023 1:00 PM Majo [facility] Arrive at: Arrive to 1st Floor Registration Desk [phone] Associated attestation - Cristopher Moreira MD - 03/01/2023 12:04 PM EDT I interviewed and examined the patient with the nurse practitioner 03/01/23. The information in this document, originally created by the nurse practioner for me, and edited by myself, accurately reflects the services I personally performed and the decisions I made. I have reviewed and edited the note as necessary and approve this document for accuracy. Cristopher Moreira MD documented in this encounter [facility] 03-01-2023 Note Formatting of this n ote is different from the original. Discharge to home with support from spouse and adult children. with provide transport home from hospital. 03/01/23 1129 Final Discharge Planning Discharge Disposition Home CM/SW AVS Portion Completed Yes Additional Community Agency Name(s) no Plan Plan Discharge home with outpatient follow up Patient/Family In Agreement With Plan yes [facility] 03-01-2023 Note Formatting of this n ote might be different from the original. Problem: PT - Mobility Goal: Ambulation Description: Pt will ambulate 30 feet with least restrictive device with supervision NWB LLE to improve ability to navigate home environment. Outcome: Ongoing Goal: Stairs Description: Pt will ascend/descend entry stairs with railings with minimal assistance with least restrictive device NWB LLE to improve ability to perform functional mobility necessary in recommended discharge environment. Outcome: Ongoing [facility] 03-01-2023 Note Formatting of this n ote might be different from the original. Pt called stating that his foot was bleeding. RN noted pink drainage on the bed and shadowing on the left heel dressing. Pt also stated that there was some pain/ pressure on the heel. Dressing was reinforced, pain meds administered and pt was reassured. Pressure was alleviated from the heel using a pillow. We will continue to monitor pt and inform ortho. T [facility] 02-28-2023 Note Formatting of this n ote might be different from the original. Problem: Mobility, Physical Impaired (Adult) Goal: Identify Related Risk Factors and Signs and Symptoms Description: Related risk factors and signs and symptoms are identified upon initiation of Human Response Clinical Practice Guideline (CPG) Outcome: Ongoing Goal: Enhanced Functionality Ability Description: Patient will demonstrate the desired outcomes by discharge/transition of care. Outcome: Ongoing Intervention: Modify Environment to Minimize Fall Risk Flowsheets (Taken 02/28/20232130) Safety Promotion/Fall Prevention: activity supervised nonskid shoes/slippers when out of bed Environmental Safety Modification: clutter free environment maintained Safety/Security Measures: alarm set [facility] 02-28-2023 Note Formatting of this n ote might be different from the original. On admission to [facility], from OR a dual RN initial assessment of skin condition was performed by Carissa Conenr RN and WILLY Bonilla. Skin Assessment: Skin not within defined limits. POD #0 Left ankle incision Frandy Score: 17 LDA Added:Yes Carissa Conner RN [facility] 02-28-2023 Note Formatting of this n ote might be different from the original. Problem: Pain, Acute (Adult) Goal: Identify Related Risk Factors and Signs and Symptoms Description: Related risk factors and signs and symptoms are identified upon initiation of Human Response Clinical Practice Guideline (CPG) Outcome: Ongoing Goal: Acceptable Pain Control/Comfort Level Description: Patient will demonstrate the desired outcomes by discharge/transition of care. Outcome: Ongoing Problem: Mobility, Physical Impaired (Adult) Goal: Identify Related Risk Factors and Signs and Symptoms Description: Related risk factors and signs and symptoms are identified upon initiation of Human Response Clinical Practice Guideline (CPG) Outcome: Ongoing Goal: Enhanced Mobility Skills Description: Patient will demonstrate the desired outcomes by discharge/transition of care. Outcome: Ongoing Goal: Enhanced Functionality Ability Description: Patient will demonstrate the desired outcomes by discharge/transition of care. Outcome: Ongoing [facility] 02-28-2023 Note Formatting of this n ote is different from the original. Date of Procedure: 28Feb2023 Patient: Preston Carrasquillo ( ) Surgeon: Cristopher Moreira MD Lumber Stacker Operator: Chaparro Hickman MD Preoperative Diagnosis: 1. Left ankle arthritis 2. 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 Left arthroscopic ankle arthrodesis 2. Left subtalar arthrodesis 3. Left proximal tibia bone graft harvest 4. Fluoroscopy Anesthesia: GETA, regional block Findings: severe ankle and subtalar arthritis, no clinical signs of infection Estimated Blood Loss: 50cc Implants: [employer] T2 TTC nail (200mm x12mm) MTF demineralized bone matrix- 5cc Specimen: Right ankle distal tibia/talus bone culture Drains: none Complications: none apparent Indications: Preston Carrasquillo is a 67 year old male who presented with severe erosive changes of the Left ankle and subtalar joint due to chronic septic arthritis previously managed at an outside hospital. He had insidious onset of pain and medial ankle swelling in and underwent ankle joint washout and medial ankle abscess debridement with excision of the posterior tibial tendon 06/24/22; cultures grew MSSA and he was treated with doxycycline for 2 weeks. Overall improved but did have ongoing pain. Pain acutely worsened again in November 2022 and he was taken to the OR on 11/25/22 for arthroscopic washout of the left ankle; cultures grew MSSA again and he was treated with Rocephin daily infusion for 2 weeks. He subsequently presented to our clinic with worsening pain and deformity with XR/MRI showing erosive changes of the ankle and subtalar joints and abundant synovitis and joint effusion. On 12/30/22 he underwent debridement with bone biopsy and culture, and placement of antibiotic cement. Cultures remained negative, he has completed 6 weeks of Ancef per Infectious Disease recommendations for prior isolated MSSA from this region. The plan is for reconstruction with tibiotalocalcaneal fusion. The diagnosis and treatment plan were discussed at length. Surgical specifics; associated risks and benefits; treatment alternatives; outcome expectations; and rehabilitation plan were discussed thoroughly. Risks reviewed included but were not limited to pain, bleeding, infection, decreased range of motion, weakness, sensitive/unsightly scar, neurovascular injury, poor outcome, progression of ankle arthritis, and need for subsequent surgeries. The patient expressed understanding, agreed, and wished to proceed. Description of Operation: The patient was met and identified in the preoperative holding area. Informed consent was verified and the surgical site was marked with a surgical pen. A regional block was administered by the anesthesia provider. The patient was then transported to the operating room and placed supine on the operating table with all extremities padded appropriately. A team huddle was performed per protocol. Anesthesia (GETA) was induced and preoperative antibiotic (Ancef 2g) were administered by the anesthesia provider. A left thigh tourniquet was then applied, and the patient was positioned with small padded bump under the hip. The extremity was prepped and draped in sterile fashion and a surgical timeout was performed per protocol to again verify correct patient, surgical site and laterality, procedure, and appropriate instrumentation and implants. The limb was exsanguinated with an esmarch dressing and thigh tourniquet inflated to 275mmHg. Next attention was turned to the preparation of the arthroscopic ankle arthrodesis. Standard anteromedial and anterolateral ankle arthroscopic portals were established with a fabiola and spread technique utilizing an 11 blade and hemostat with care to protect the saphenous vein and superficial peroneal nerve. Diagnostic arthroscopy was performed and showed severe ankle arthritis with full thickness cartilage loss. The remaining cartilage on the distal tibia and talar dome was debrided with sharp chisel, curettes, and arthroscopic shaver. The subchondral bone was further fenestrated with an arthroscopic awl, chisel and juan c. Next we turned our attention to the subtalar arthrodesis. We made a 4cm lateral hindfoot incision starting just distal to the posterior border of the tip of the fibula extending toward the base of the 4th metatarsal. Sharp and blunt dissection were carried down and hemostasis was maintained with electrocautery. The peroneal tendons were retracted. We sharply cut through the subtalar capsule and interosseous ligaments and noted significant arthritis. The subtalar joint was distracted and the posterior and middle facets were debrided of articular cartilage with a sharp chisel and further fenestrated with an 1/8 osteotome. The wounds were copiously irrigated. Some bne fragments from the distal tibia and talus were sent for culture. At this point the ankle and subtalar joints were aligned, compressed and provisionally stabilized with a 3.2mm wire placed posteriorly out of the pathway of the nail. Position was confirmed with fluoroscopy. At this point the ankle and subtalar joints were in neutral dorsiflexion, just over 5 degrees valgus and slight 5deg external rotation. Next a 3cm plantar heel incision was made and the guidewire for the fusion nail was placed under fluoroscopic guidance and the entry reamer was passed. At this point we harvested proximal tibia bone graft. We sequentially reamed to 13mm and the proximal bone graft reamings were preserved for cancellous autograft. We collected @2-3cc of graft. The cancellous graft along with some of the demineralized bone matrix was placed at the ankle fusion site through the anteromedial portal as well as through the lateral incision to the subtalar fusion site. Next the fusion sites were secured. We placed a [employer] T2 (200mm x12mm) tibiotalocalcaneal arthrodesis nail. 1cm incisions were made and the 5mm lateral to medial talar interlocking screw and the two medial to lateral tibial interlocking screws were placed. The ankle joint was then further compressed using the internal compression screw. External compression was then applied to compress the subtalar joint and the lateral to medial and posterior calcaneal interlocking screws were placed. Fluoroscopy and direct visualization demonstrated appropriate alignment and hardware placement with good compression of the joint surfaces. The ankle was in neutral with the hindfoot in slight valgus and the foot in slight external rotation. The tourniquet was deflated after 115 minutes. The wounds were irrigated and hemostasis was maintained. The scope portal and percutaneous incisions were closed with 3.0 ethilon sutures. The plantar foot and lateral subtalar incisions were closed with interrupted 3.0 vicryl deep dermal sutures followed by 3.0 ethilon mattress stitches. Sterile dressings and a well padded L&U splint were applied with the ankle in neutral position. The patient tolerated the procedure well with no apparent complications, was awakened from anesthetic in the operating room, and transported to the PACU in stable condition. The patient will remain nonweightbearing and followup in 2weeks for wound check. He will continue on Eliquis for 1 month for DVT prophylaxis as well as continue factor replacement per Hematology recommendations. Anticipated postop rehab pending clinical/radiographic healing: * 0-2 weeks: splint, nonweightbearing * 2-5 weeks: splint, nonweightbearing * 5-8 weeks: CAM boot, weightbearing for transfers only * 8-12weeks: CAM boot, progressive weightbearing as tolerated, start physical therapy for reconditioning and gait training * >12 weeks: wean CAM boot as tolerated, progressive return to activity, bracing/orthotics as needed [facility] 02-28-2023 Hospital Discharge instructions Cristopher Moreira MD - 02/28/2023 1:52 PM EDT POST-OP INSTRUCTIONS AFTER YOUR FOOT/ANKLE SURGERY PAIN!!!! You will be given pain medication please take medication on time around the clock to be as painless as possible during your recovery. Please call the clinic at least 3 days before your medication runs out. DVT PROPHYLAXIS The signs and symptoms of a DVT (blood clot) include: calf pain, swelling of the lower leg, chest pain, shortness of breath. Seek medical attention immediately if experiencing any of these. Continue Eliquis for DVT prophylaxis while immobilized and casted. Based upon your interest in the ELIQUIS (apixaban) Virtual Affordability program and completion of the 'Virtual Affordability Request Form', attached below is the unique URL for your hospital/system. [email or web address] Please utilize the unique URL provided to access an electronic version of the following: Eliquis Copay Card Eliquis Pre-Activated 30-day Free Trial Offer CRUTCHES Use your crutches as instructed. Do not apply weight to the foot/ankle until cleared by your surgeon. Anticipated postop rehab pending clinical/radiographic healing: * 0-2 weeks: splint, nonweightbearing * 2-5 weeks: splint, nonweightbearing * 5-8 weeks: CAM boot, weightbearing for transfers only * 8-12weeks: CAM boot, progressive weightbearing as tolerated, start physical therapy for reconditioning and gait training * >12 weeks: wean CAM boot as tolerated, progressive return to activity, bracing/orthotics as needed DRESSING Keep your dressing clean dry and intact. Do not remove the splint or the surgical dressings. If your Tensor elastic wrap feels too tight, you may remove it and rewrap a bit looser. ELEVATION Swelling will occur after your surgery. While it is a normal response to the surgery, it can contribute to your pain. Keeping the limb elevated above your heart will help. Try to elevate as much as possible to reduce swelling. SHOWERING You may shower. In order to maintain the splint or dressing dry please cover it with a plastic bag and secure the ends with tape. Condensation in a shower can create a hazardous environment. Please be mindful of your environment and maintain appropriate shower safety in order to prevent slips and falls. Do not soak in a bath tub, hot tub, or pool until the doctor tells you it is O.K. to do so. ICE You should ice the foot/ankle as often as possible to reduce swelling and discomfort. You may place ice in a plastic bag on the splint. Do not directly ice the foot/ankle more than 20 minutes at a time. Let the foot/ankle warm up before reapplication. Avoid getting your wound wet. COMMON CONCERNS 1. You may experience a variety of transient symptoms in the area of the wounds, including itchiness, increased sensitivity to touch, and numbness. These will improve with time. 2. A sudden lara or feeling of fullness with pain when going from a sitting to a standing position in the foot/ankle is common after surgery. 3. If at any time you have discomfort, swelling, or redness in the calf (behind the leg between the knee and the ankle) please call the doctor immediately. FEVER/INFECTION A low-grade fever is not uncommon. If you develop a significant fever greater than 101, or if you develop redness or excess drainage from your incision(s), call the clinic during business hours at or the Emergency Room after business hours. ATELECTASIS This is a common condition in patients who have had surgery and is a common cause of low-grade fevers during the first 24-48 hours following surgery. It occurs if a patient is not taking normal (deep) breaths and not moving around with normal activity, which is what often happens when patients are recovering from surgery. Taking narcotic pain medications and not doing the normal amount of walking and other activity restrictions can predispose a patient to this condition. However, it is easily remedied by either taking 10 deep breaths at least once or twice every hour, or using the incentive spirometer instrument (ball that floats up in a tube when take a deep breath) if your doctor prescribed one for you when you were discharged. CONSTIPATION This also commonly occurs after surgery due to taking narcotic pain medication, being inactive, or both. If your bowel habits have slowed significantly or you are unable to have a bowel movement, and you were not sent home on a stool softener, you may need to call the Ortho clinic and ask your doctor to order a stool softener to help you have a bowel movement. documented in this encounter [facility] 02-28-2023 Note Formatting of this n ote might be different from the original. Orthopedic Surgery Plan of Care Note Preston Carrasquillo is a 67 y.o. male now s/p left ankle arthroscopy and TTC nail with Dr. Moreira on 02/28/23. - FU Cx - Imaging: none - Activity: Advance as tolerated. PT/OT - Weight Bearing Status: NWB LLE in splint - Pain: multimodal - Diet: Advance as tolerated - Abx: Ancef x24 hrs - DVT PPx: SCD's, Eliquis 2.5mg BID x4 weeks to start POD1 - Dressing: splint - Drains: None - Rizzo: None - Dispo: Pending pain control, PT/OT. Anticipate discharge to home POD1 - Follow-up: Patient will need to follow up in clinic 2 weeks post-op for wound check Chaparro Hickman MD Orthopaedic Surgery [facility] 02-28-2023 Note Formatting of this n ote is different from the original. 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] PROCEDURE PERFORMED Procedure(s) (LRB): ARTHROSCOPY ANKLE W/ ARTHRODESIS (Left) SUBTALAR ARTHRODESIS (Left) HARVEST GRAFT BONE LARGE DONOR AREA - PROXIMAL TIBIA (Left) PRIMARY CLOSURE Yes INTRAOPERATIVE FINDINGS ankle/subtalar arthritis, no signs of ongoing infection Claire T2 TTC nail: 200mm x12mm; MTF Demineralized bone matrix 5cc SURGEON Surgeon(s) and Role: * Cristopher Moreira MD - Primary ANESTHESIOLOGIST Anesthesiologist: Anant Chavez DO Anesthesia Fellow: Baljit Nuñez MD SURGICAL STAFF Billing Spec: Jaren Allen RN Retail Advertising Sales Manager: Mi Renee COMPLICATIONS None ESTIMATED BLOOD LOSS 50 ml SPECIMENS Microbiology specimen sent ID Type Source Tests Collected by Time Destination A : Left Ankle Tissue TISSUE FUNGUS CULTURE, ACID FAST CULTURE, TISSUE, ANAEROBE CULTURE, BACTERIAL CULTURE AND DIRECT SMEAR, LESION, TISSUE, DEVICE Cristopher Moreira MD 02/28/2023 1210 Cristopher Moreira MD February 28, 2023 1:01 PM [facility] 02-28-2023 Note Formatting of this n ote might be different from the original. Anesthesia at bedside to perform a peripheral nerve block to the LLE. Bedside timeout performed. rrl Pt became very restless during procedure. Seizures pads placed on rails. VSS [facility] 02-28-2023 Attending History and physical note I have examined the patient and reviewed the previous H&P completed on date 02/22/23 and there are no changes. Cristopher Moreira MD, 02/28/2023, 9:46 AM. Source Note - Carissa Noel, OUTSOLE COMPRESSOR-PHYSICAL MEDICINE SPECIALIST - 02/22/2023 9:45 AM EDT Pre-Operative Assessment (PAT) Outpatient Clinic Note H&P Date of Evaluation: 02/22/2023 Date of Surgery: 02/28/23 Surgeon: Eri Pre-Op Diagnosis: Staphylococcal arthritis of left ankle Planned Procedure: ARTHROSCOPY ANKLE W/ ARTHRODESIS - Left CHIEF COMPLAINT Preoperative cardiovascular testing and medication management for major surgery HISTORY Preston Carrasquillo is a 67 y.o. male with the below history presenting for preoperative evaluation. Chronic medical problems are stable with no acute changes in symptoms or medications: Yes Current or ongoing urinary symptoms: No LMP (if applicable): No LMP for male patient. Anesthesia: Personal or Family history of problems related to anesthesia (ex.Malignant Hyperthermia): No History of difficult intubations: No Pacer/AICD: No; PONV: No Penicillin Allergy: No Cardiac: Hx of Cardiac Disease/Stents - No Current Symptoms of Angina - No Current Symptoms of Decompensated Heart Failure - No Use of Beta-Blockers - No Current Functional Status ? 4 - Yes Pulmonary: History of FREDY: no History of asthma or COPD: No Smoker: no STOP-BANG Risk Assessment: STOP Questions o Do you snore? No o Frequently tired during the day? No o Observed gasping or choking episodes while asleep? No o Diagnosis of/or treated for high blood pressure? Yes BANG Questions o Age more than 50? Yes o Gender assignment at : Male? Yes o Neck circumference greater than 40 cm? No o BMI more then 35? - Body mass index is 28.39 kg/m . No High risk: No (High risk ? 5 STOP-BANG; STOP ? 2 AND Male; STOP ? 2 AND BMI > 35 kg/m2; STOP ? 2 AND Neck ? 40 cm) MEDICAL HISTORY: Past Medical History: Diagnosis Date Adopted Ankle joint pain Essential hypertension, benign Flat foot Hernia, umbilical Hyperlipidemia Ingrown toenail Low back pain Male erectile dysfunction Pain in left shoulder Pain in right shoulder Pityriasis versicolor RLS (restless legs syndrome) Past Surgical History: Procedure Laterality Date ARTHROSCOPY ANKLE W/ DEBRIDEMENT Left 12/30/2022 Laterality: Left; Surgeon: Cristopher Moreira MD; Location: [facility] OR I&D BONE CORTEX ANKLE LEG Left 12/30/2022 Laterality: Left; Surgeon: Cristopher Moreira MD; Location: [facility] MA[facility] OR INSERTION IMPLANT NONBIODEGRADABLE DRUG DELIVERY Left 12/30/2022 Laterality: Left; Surgeon: Cristopher Moreira MD; Location: [facility] OR ARTHROSCOPY SUBTALAR JOINT W/ DEBRIDEMENT Left 12/30/2022 Laterality: Left; Surgeon: Cristopher Moreira MD; Location: [facility] OR INSERTION NEUROSTIMULATOR ELECTRODE SPINAL PERCUTANEOUS N/A 07/13/2021 Laterality: N/A; Surgeon: Tyrell Weinberg DO; Location: [facility] INSERTION REPLACEMENT NEUROSTIMULATOR GENERATOR SPINAL N/A 07/13/2021 Laterality: N/A; Surgeon: Tyrell Weinberg DO; Location: [facility] ANALYSIS/PROGRAMMING NEUROSTIMULATOR GENERATOR SYSTEM N/A 07/13/2021 Laterality: N/A; Surgeon: Tyrell Weinberg DO; Location: [facility] ARTHROSCOPY SHOULDER W/ ROTATOR CUFF REPAIR Left 10/27/2017 Laterality: Left; Surgeon: Majo Phan MD; Location: [facility] PERIOP ARTHROSCOPY SHOULDER W/ SUBACROMIAL DECOMPRESSION/ACROMIOPLASTY ADD-ON Left 10/27/2017 Laterality: Left; Surgeon: Majo Phan MD; Location: [facility] ARTHROSCOPY SHOULDER W/ DEBRIDEMENT Left 10/27/2017 Laterality: Left; Surgeon: Majo Phan MD; Location: [facility] PERIOP HERNIA REPAIR SHOULDER SURGERY Right x2 SOCIAL HISTORY: reports that he has never smoked. He has never used smokeless tobacco. He reports current alcohol use of about 35.0 standard drinks per week. He reports that he does not use drugs. FAMILY HISTORY: family history is not on file. MEDICATIONS: Current Outpatient Medications Medication Instructions Acetaminophen (TYLENOL) 650 mg, Oral, EVERY 6 HOURS baclofen (LIORESAL) 20 mg, Oral, 2 TIMES DAILY lidocaine 5 % Patch patch 1 patch, Transdermal, EVERY 24 HOURS, Max of 12 hours of application then remove. Lisinopril (PRINIVIL) 2.5 mg, Oral, DAILY naproxen (NAPROSYN) 500 mg, Oral, 2 TIMES DAILY oxyCODONE-acetaminophen 5-325 MG per tablet 1 tablet, Oral, EVERY 8 HOURS NEEDED rOPINIRole (REQUIP) 2 mg, Oral, 2 TIMES DAILY traZODone (DESYREL) 100 mg, Oral, DAILY AT BEDTIME ALLERGIES: No Known Allergies REVIEW OF SYSTEMS The patient denies any chest pain on exertion, shortness of breath, orthopnea or palpitations. ROS also negative for fever, chills, headache, dizziness, cough, sputum, nausea, vomiting, diarrhea, constipation, dysuria, hematuria, rashes or easy bleeding. All other systems were reviewed and were negative. OBJECTIVE Vitals: 04/12/23 0949 BP: 98/60 Pulse: 97 Resp: 16 Temp: 98.2 degrees F (36.8 degrees C) TempSrc: Temporal SpO2: 98% Weight: 76.2 kg (168 lb) Height: 1.638 m (5' 4.5 ) Body mass index is 28.39 kg/m . General:67 y.o. male in NAD, alert and oriented x 3 HEENT: Normocephalic, pupils equal round and reactive to light, EOMI, moist mucous membranes noted. Neck: Full ROM, supple, no lymphadenopathy Pulmonary: bilateral breath sounds, clear to auscultation, no use of accessory muscles, no wheezes/rhonchi/rales Cardiovascular:Regular rate and rhythm. Normal S1, S2, No murmurs, rubs or gallops Abdomen: soft, nontender, nondistended, normoactive bowel sounds, No Hepatosplenomegaly Extremities: No cyanosis, clubbing. Left LE with non pitting edema to ankle/foot. Normal peripheral pulses noted. Neuro: Cranial nerves are grossly intact, No focal deficits noted, moving all 4 extremities. Skin: warm, dry, intact; no erythema or rash DATA REVIEW Lab Results Component Value Date WBC 7.17 02/22/2023 HGB 13.3 (L) 02/22/2023 HCT 40.0 02/22/2023 PLATELET 244 02/22/2023 MCV 94.3 02/22/2023 Lab Results Component Value Date SODIUM 129 (L) 02/22/2023 POTASSIUM 4.3 02/22/2023 CHLORIDE 99 02/22/2023 CO2 22 02/22/2023 BUN 19 02/22/2023 CREATSERUM 0.66 (L) 02/22/2023 GLUCOSE 89 02/22/2023 Lab Results Component Value Date INR 1.1 02/22/2023 PT 13.7 02/22/2023 No results found for: HGBA1C In addition to the labs above, I have personally reviewed all laboratory data in the EMR and CareEverywhere Imaging/EKG and procedures: I have personally reviewed the EKG and my findings are NSR with right BBB (chronic and noted on previous EKG's) ECHO: Results for orders placed during the hospital encounter of 12/30/22 ECHOCARDIOGRAM 01/02/2023 (Final) Interpretation Summary - Poor quality study. - Grossly normal left ventricular size and function. Ejection fraction 55-60%. - Right ventricle is not well seen. Systolic function is grossly normal. - Normal atrial size. - Mitral annulus and aortic valve are calcified. - Valves poorly visualized. No large vegetation to extent seen. ASSESSMENT AND PLAN Pre-operative Risk Evaluation - Preston Carrasquillo is at a Acceptable risk for a low risk surgery - Per ACC/AHA guidelines, the patient requires no further testing at this time. - METS >4: yes, good exercise tolerance - Patient Meets the Following RCRI Criteria (RCRI): None: 0 criteria suggesting a 3.9% risk of major cardiac events - Please utilize continuous pulse oximetry & telemetry for at least 24 hours and consider using CPAP or BiPAP when patient is sleeping for patients if High risk for FREDY Staphylococcal arthritis of left ankle -s/p left ankle joint washout and medial ankle abscess debridement with excision of the posterior tibial tendon on 06/24/22. Cultures grew MSSA, treated with doxycycline x 2 weeks -s/p arthroscopic washout of the left ankle on 11/25/22, cultures grew MSSA again and he was treated with Rocephin daily infusion for 2 weeks. 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 with daily intake of beer as above -kidney function and LFTs normal -will place order for repeat BMP on DOS Essential HTN -managed on lisinopril -appears controlled RLS -managed on requip Chronic low back pain -s/p spinal stimulator placement in 06/2021 (above left hip) -on PRN percocet Body mass index is 28.39 kg/m .: Perioperative medication recommendations: Acetaminophen 325 MG tablet Ok to take morning of surgery baclofen 20 MG tablet Ok to take morning of surgery lidocaine 5 % Patch patch Do Not take the morning of surgery Lisinopril 2.5 MG tablet Do not take 24 hours prior to surgery Naproxen 500 MG tablet Do not take 5 days prior to surgery oxyCODONE-acetaminophen 5-325 MG per tablet Ok to take morning of surgery rOPINIRole 2 MG tablet Ok to take morning of surgery traZODone 100 MG tablet Ok to take night prior to surgery Above recommendations were discussed with the patient, and patient understood and agreed with the plan outlined above. Thank you for allowing us to participate in the care of Preston Carrasquillo. AIDAN Echevarria Division of Hospital Medicine [facility] 02-28-2023 History and physical note I have examined the patient and reviewed the previous H&P completed on date 02/22/23 and there are no changes. Cristopher Moreira MD, 02/28/2023, 9:46 AM. Source Note - AIDAN Echevarria - 02/22/2023 9:45 AM EDT Pre-Operative Assessment (PAT) Outpatient Clinic Note H&P Date of Evaluation: 02/22/2023 Date of Surgery: 02/28/23 Surgeon: Eri Pre-Op Diagnosis: Staphylococcal arthritis of left ankle Planned Procedure: ARTHROSCOPY ANKLE W/ ARTHRODESIS - Left CHIEF COMPLAINT Preoperative cardiovascular testing and medication management for major surgery HISTORY Preston Carrasquillo is a 67 y.o. male with the below history presenting for preoperative evaluation. Chronic medical problems are stable with no acute changes in symptoms or medications: Yes Current or ongoing urinary symptoms: No LMP (if applicable): No LMP for male patient. Anesthesia: Personal or Family history of problems related to anesthesia (ex.Malignant Hyperthermia): No History of difficult intubations: No Pacer/AICD: No; PONV: No Penicillin Allergy: No Cardiac: Hx of Cardiac Disease/Stents - No Current Symptoms of Angina - No Current Symptoms of Decompensated Heart Failure - No Use of Beta-Blockers - No Current Functional Status ? 4 - Yes Pulmonary: History of FREDY: no History of asthma or COPD: No Smoker: no STOP-BANG Risk Assessment: STOP Questions o Do you snore? No o Frequently tired during the day? No o Observed gasping or choking episodes while asleep? No o Diagnosis of/or treated for high blood pressure? Yes BANG Questions o Age more than 50? Yes o Gender assignment at : Male? Yes o Neck circumference greater than 40 cm? No o BMI more then 35? - Body mass index is 28.39 kg/m . No High risk: No (High risk ? 5 STOP-BANG; STOP ? 2 AND Male; STOP ? 2 AND BMI > 35 kg/m2; STOP ? 2 AND Neck ? 40 cm) MEDICAL HISTORY: Past Medical History: Diagnosis Date Adopted Ankle joint pain Essential hypertension, benign Flat foot Hernia, umbilical Hyperlipidemia Ingrown toenail Low back pain Male erectile dysfunction Pain in left shoulder Pain in right shoulder Pityriasis versicolor RLS (restless legs syndrome) Past Surgical History: Procedure Laterality Date ARTHROSCOPY ANKLE W/ DEBRIDEMENT Left 12/30/2022 Laterality: Left; Surgeon: Cristopher Moreira MD; Location: [facility] OR I&D BONE CORTEX ANKLE LEG Left 12/30/2022 Laterality: Left; Surgeon: Cristopher Moreira MD; Location: [facility] OR INSERTION IMPLANT NONBIODEGRADABLE DRUG DELIVERY Left 12/30/2022 Laterality: Left; Surgeon: Cristopher Moreira MD; Location: [facility] OR ARTHROSCOPY SUBTALAR JOINT W/ DEBRIDEMENT Left 12/30/2022 Laterality: Left; Surgeon: Cristopher Moreira MD; Location: [facility] INSERTION NEUROSTIMULATOR ELECTRODE SPINAL PERCUTANEOUS N/A 07/13/2021 Laterality: N/A; Surgeon: Tyrell Weinberg DO; Location: [facility] INSERTION REPLACEMENT NEUROSTIMULATOR GENERATOR SPINAL N/A 07/13/2021 Laterality: N/A; Surgeon: Tyrell Weinberg DO; Location: [facility] ANALYSIS/PROGRAMMING NEUROSTIMULATOR GENERATOR SYSTEM N/A 07/13/2021 Laterality: N/A; Surgeon: Tyrell Weinberg DO; Location: [facility] ARTHROSCOPY SHOULDER W/ ROTATOR CUFF REPAIR Left 10/27/2017 Laterality: Left; Surgeon: Majo Phan MD; Location: [facility] ARTHROSCOPY SHOULDER W/ SUBACROMIAL DECOMPRESSION/ACROMIOPLASTY ADD-ON Left 10/27/2017 Laterality: Left; Surgeon: Majo Phan MD; Location: [facility] ARTHROSCOPY SHOULDER W/ DEBRIDEMENT Left 10/27/2017 Laterality: Left; Surgeon: Majo Phan MD; Location: [facility] HERNIA REPAIR SHOULDER SURGERY Right x2 SOCIAL HISTORY: reports that he has never smoked. He has never used smokeless tobacco. He reports current alcohol use of about 35.0 standard drinks per week. He reports that he does not use drugs. FAMILY HISTORY: family history is not on file. MEDICATIONS: Current Outpatient Medications Medication Instructions Acetaminophen (TYLENOL) 650 mg, Oral, EVERY 6 HOURS baclofen (LIORESAL) 20 mg, Oral, 2 TIMES DAILY lidocaine 5 % Patch patch 1 patch, Transdermal, EVERY 24 HOURS, Max of 12 hours of application then remove. Lisinopril (PRINIVIL) 2.5 mg, Oral, DAILY naproxen (NAPROSYN) 500 mg, Oral, 2 TIMES DAILY oxyCODONE-acetaminophen 5-325 MG per tablet 1 tablet, Oral, EVERY 8 HOURS NEEDED rOPINIRole (REQUIP) 2 mg, Oral, 2 TIMES DAILY traZODone (DESYREL) 100 mg, Oral, DAILY AT BEDTIME ALLERGIES: No Known Allergies REVIEW OF SYSTEMS The patient denies any chest pain on exertion, shortness of breath, orthopnea or palpitations. ROS also negative for fever, chills, headache, dizziness, cough, sputum, nausea, vomiting, diarrhea, constipation, dysuria, hematuria, rashes or easy bleeding. All other systems were reviewed and were negative. OBJECTIVE Vitals: 02/22/23 0949 BP: 98/60 Pulse: 97 Resp: 16 Temp: 98.2 degrees F (36.8 degrees C) TempSrc: Temporal SpO2: 98% Weight: 76.2 kg (168 lb) Height: 1.638 m (5' 4.5 ) Body mass index is 28.39 kg/m . General:67 y.o. male in NAD, alert and oriented x 3 HEENT: Normocephalic, pupils equal round and reactive to light, EOMI, moist mucous membranes noted. Neck: Full ROM, supple, no lymphadenopathy Pulmonary: bilateral breath sounds, clear to auscultation, no use of accessory muscles, no wheezes/rhonchi/rales Cardiovascular:Regular rate and rhythm. Normal S1, S2, No murmurs, rubs or gallops Abdomen: soft, nontender, nondistended, normoactive bowel sounds, No Hepatosplenomegaly Extremities: No cyanosis, clubbing. Left LE with non pitting edema to ankle/foot. Normal peripheral pulses noted. Neuro: Cranial nerves are grossly intact, No focal deficits noted, moving all 4 extremities. Skin: warm, dry, intact; no erythema or rash DATA REVIEW Lab Results Component Value Date WBC 7.17 02/22/2023 HGB 13.3 (L) 02/22/2023 HCT 40.0 02/22/2023 PLATELET 244 02/22/2023 MCV 94.3 02/22/2023 Lab Results Component Value Date SODIUM 129 (L) 02/22/2023 POTASSIUM 4.3 02/22/2023 CHLORIDE 99 02/22/2023 CO2 22 02/22/2023 BUN 19 02/22/2023 CREATSERUM 0.66 (L) 02/22/2023 GLUCOSE 89 02/22/2023 Lab Results Component Value Date INR 1.1 02/22/2023 PT 13.7 02/22/2023 No results found for: HGBA1C In addition to the labs above, I have personally reviewed all laboratory data in the EMR and CareEverywhere Imaging/EKG and procedures: I have personally reviewed the EKG and my findings are NSR with right BBB (chronic and noted on previous EKG's) ECHO: Results for orders placed during the hospital encounter of 12/30/22 ECHOCARDIOGRAM 01/02/2023 (Final) Interpretation Summary - Poor quality study. - Grossly normal left ventricular size and function. Ejection fraction 55-60%. - Right ventricle is not well seen. Systolic function is grossly normal. - Normal atrial size. - Mitral annulus and aortic valve are calcified. - Valves poorly visualized. No large vegetation to extent seen. ASSESSMENT AND PLAN Pre-operative Risk Evaluation - Preston Carrasquillo is at a Acceptable risk for a low risk surgery - Per ACC/AHA guidelines, the patient requires no further testing at this time. - METS >4: yes, good exercise tolerance - Patient Meets the Following RCRI Criteria (RCRI): None: 0 criteria suggesting a 3.9% risk of major cardiac events - Please utilize continuous pulse oximetry & telemetry for at least 24 hours and consider using CPAP or BiPAP when patient is sleeping for patients if High risk for FREDY Staphylococcal arthritis of left ankle -s/p left ankle joint washout and medial ankle abscess debridement with excision of the posterior tibial tendon on 06/24/22. Cultures grew MSSA, treated with doxycycline x 2 weeks -s/p arthroscopic washout of the left ankle on 11/25/22, cultures grew MSSA again and he was treated with Rocephin daily infusion for 2 weeks. 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 with daily intake of beer as above -kidney function and LFTs normal -will place order for repeat BMP on DOS Essential HTN -managed on lisinopril -appears controlled RLS -managed on requip Chronic low back pain -s/p spinal stimulator placement in 06/2021 (above left hip) -on PRN percocet Body mass index is 28.39 kg/m .: Perioperative medication recommendations: Acetaminophen 325 MG tablet Ok to take morning of surgery baclofen 20 MG tablet Ok to take morning of surgery lidocaine 5 % Patch patch Do Not take the morning of surgery Lisinopril 2.5 MG tablet Do not take 24 hours prior to surgery Naproxen 500 MG tablet Do not take 5 days prior to surgery oxyCODONE-acetaminophen 5-325 MG per tablet Ok to take morning of surgery rOPINIRole 2 MG tablet Ok to take morning of surgery traZODone 100 MG tablet Ok to take night prior to surgery Above recommendations were discussed with the patient, and patient understood and agreed with the plan outlined above. Thank you for allowing us to participate in the care of Preston Carrasquillo. AIDAN Echevarria Division of Hospital Medicine documented in this encounter [facility] 02-22-2023 History and physical note Pre-Operative Assessment (PAT) Outpatient Clinic Note H&P Date of Evaluation: 02/22/2023 Date of Surgery: 02/28/23 Surgeon: Eri Pre-Op Diagnosis: Staphylococcal arthritis of left ankle Planned Procedure: ARTHROSCOPY ANKLE W/ ARTHRODESIS - Left CHIEF COMPLAINT Preoperative cardiovascular testing and medication management for major surgery HISTORY Preston Carrasquillo is a 67 y.o. male with the below history presenting for preoperative evaluation. Chronic medical problems are stable with no acute changes in symptoms or medications: Yes Current or ongoing urinary symptoms: No LMP (if applicable): No LMP for male patient. Anesthesia: Personal or Family history of problems related to anesthesia (ex.Malignant Hyperthermia): No History of difficult intubations: No Pacer/AICD: No; PONV: No Penicillin Allergy: No Cardiac: Hx of Cardiac Disease/Stents - No Current Symptoms of Angina - No Current Symptoms of Decompensated Heart Failure - No Use of Beta-Blockers - No Current Functional Status ? 4 - Yes Pulmonary: History of FREDY: no History of asthma or COPD: No Smoker: no STOP-BANG Risk Assessment: STOP Questions o Do you snore? No o Frequently tired during the day? No o Observed gasping or choking episodes while asleep? No o Diagnosis of/or treated for high blood pressure? Yes BANG Questions o Age more than 50? Yes o Gender assignment at : Male? Yes o Neck circumference greater than 40 cm? No o BMI more then 35? - Body mass index is 28.39 kg/m . No High risk: No (High risk ? 5 STOP-BANG; STOP ? 2 AND Male; STOP ? 2 AND BMI > 35 kg/m2; STOP ? 2 AND Neck ? 40 cm) MEDICAL HISTORY: Past Medical History: Diagnosis Date Adopted Ankle joint pain Essential hypertension, benign Flat foot Hernia, umbilical Hyperlipidemia Ingrown toenail Low back pain Male erectile dysfunction Pain in left shoulder Pain in right shoulder Pityriasis versicolor RLS (restless legs syndrome) Past Surgical History: Procedure Laterality Date ARTHROSCOPY ANKLE W/ DEBRIDEMENT Left 12/30/2022 Laterality: Left; Surgeon: Cristopher Moreira MD; Location: [facility] OR I&D BONE CORTEX ANKLE LEG Left 12/30/2022 Laterality: Left; Surgeon: Cristopher Moreira MD; Location: [facility] MAIN OR INSERTION IMPLANT NONBIODEGRADABLE DRUG DELIVERY Left 12/30/2022 Laterality: Left; Surgeon: Cristopher Moreira MD; Location: [facility] MA[facility] OR ARTHROSCOPY SUBTALAR JOINT W/ DEBRIDEMENT Left 12/30/2022 Laterality: Left; Surgeon: Cristopher Moreira MD; Location: [facility] MA[facility] OR INSERTION NEUROSTIMULATOR ELECTRODE SPINAL PERCUTANEOUS N/A 07/13/2021 Laterality: N/A; Surgeon: Tyrell Weinberg DO; Location: [facility] INSERTION REPLACEMENT NEUROSTIMULATOR GENERATOR SPINAL N/A 07/13/2021 Laterality: N/A; Surgeon: Tyrell Weinberg DO; Location: [facility] ANALYSIS/PROGRAMMING NEUROSTIMULATOR GENERATOR SYSTEM N/A 07/13/2021 Laterality: N/A; Surgeon: Tyrell Weinberg DO; Location: [facility] ARTHROSCOPY SHOULDER W/ ROTATOR CUFF REPAIR Left 10/27/2017 Laterality: Left; Surgeon: Majo Phan MD; Location: [facility] ARTHROSCOPY SHOULDER W/ SUBACROMIAL DECOMPRESSION/ACROMIOPLASTY ADD-ON Left 10/27/2017 Laterality: Left; Surgeon: Majo Phan MD; [facility] ARTHROSCOPY SHOULDER W/ DEBRIDEMENT Left 10/27/2017 Laterality: Left; Surgeon: Majo Phan MD; Location: [facility] HERNIA REPAIR SHOULDER SURGERY Right x2 SOCIAL HISTORY: reports that he has never smoked. He has never used smokeless tobacco. He reports current alcohol use of about 35.0 standard drinks per week. He reports that he does not use drugs. FAMILY HISTORY: family history is not on file. MEDICATIONS: Current Outpatient Medications Medication Instructions Acetaminophen (TYLENOL) 650 mg, Oral, EVERY 6 HOURS baclofen (LIORESAL) 20 mg, Oral, 2 TIMES DAILY lidocaine 5 % Patch patch 1 patch, Transdermal, EVERY 24 HOURS, Max of 12 hours of application then remove. Lisinopril (PRINIVIL) 2.5 mg, Oral, DAILY naproxen (NAPROSYN) 500 mg, Oral, 2 TIMES DAILY oxyCODONE-acetaminophen 5-325 MG per tablet 1 tablet, Oral, EVERY 8 HOURS NEEDED rOPINIRole (REQUIP) 2 mg, Oral, 2 TIMES DAILY traZODone (DESYREL) 100 mg, Oral, DAILY AT BEDTIME ALLERGIES: No Known Allergies REVIEW OF SYSTEMS The patient denies any chest pain on exertion, shortness of breath, orthopnea or palpitations. ROS also negative for fever, chills, headache, dizziness, cough, sputum, nausea, vomiting, diarrhea, constipation, dysuria, hematuria, rashes or easy bleeding. All other systems were reviewed and were negative. OBJECTIVE Vitals: 02/22/23 0949 BP: 98/60 Pulse: 97 Resp: 16 Temp: 98.2 degrees F (36.8 degrees C) TempSrc: Temporal SpO2: 98% Weight: 76.2 kg (168 lb) Height: 1.638 m (5' 4.5 ) Body mass index is 28.39 kg/m . General:67 y.o. male in NAD, alert and oriented x 3 HEENT: Normocephalic, pupils equal round and reactive to light, EOMI, moist mucous membranes noted. Neck: Full ROM, supple, no lymphadenopathy Pulmonary: bilateral breath sounds, clear to auscultation, no use of accessory muscles, no wheezes/rhonchi/rales Cardiovascular:Regular rate and rhythm. Normal S1, S2, No murmurs, rubs or gallops Abdomen: soft, nontender, nondistended, normoactive bowel sounds, No Hepatosplenomegaly Extremities: No cyanosis, clubbing. Left LE with non pitting edema to ankle/foot. Normal peripheral pulses noted. Neuro: Cranial nerves are grossly intact, No focal deficits noted, moving all 4 extremities. Skin: warm, dry, intact; no erythema or rash DATA REVIEW Lab Results Component Value Date WBC 7.17 02/22/2023 HGB 13.3 (L) 02/22/2023 HCT 40.0 02/22/2023 PLATELET 244 02/22/2023 MCV 94.3 02/22/2023 Lab Results Component Value Date SODIUM 129 (L) 02/22/2023 POTASSIUM 4.3 02/22/2023 CHLORIDE 99 02/22/2023 CO2 22 02/22/2023 BUN 19 02/22/2023 CREATSERUM 0.66 (L) 02/22/2023 GLUCOSE 89 02/22/2023 Lab Results Component Value Date INR 1.1 02/22/2023 PT 13.7 02/22/2023 No results found for: HGBA1C In addition to the labs above, I have personally reviewed all laboratory data in the EMR and CareEverywhere Imaging/EKG and procedures: I have personally reviewed the EKG and my findings are NSR with right BBB (chronic and noted on previous EKG's) ECHO: Results for orders placed during the hospital encounter of 12/30/22 ECHOCARDIOGRAM 01/02/2023 (Final) Interpretation Summary - Poor quality study. - Grossly normal left ventricular size and function. Ejection fraction 55-60%. - Right ventricle is not well seen. Systolic function is grossly normal. - Normal atrial size. - Mitral annulus and aortic valve are calcified. - Valves poorly visualized. No large vegetation to extent seen. ASSESSMENT AND PLAN Pre-operative Risk Evaluation - Preston Carrasquillo is at a Acceptable risk for a low risk surgery - Per ACC/AHA guidelines, the patient requires no further testing at this time. - METS >4: yes, good exercise tolerance - Patient Meets the Following RCRI Criteria (RCRI): None: 0 criteria suggesting a 3.9% risk of major cardiac events - Please utilize continuous pulse oximetry & telemetry for at least 24 hours and consider using CPAP or BiPAP when patient is sleeping for patients if High risk for FREDY Staphylococcal arthritis of left ankle -s/p left ankle joint washout and medial ankle abscess debridement with excision of the posterior tibial tendon on 06/24/22. Cultures grew MSSA, treated with doxycycline x 2 weeks -s/p arthroscopic washout of the left ankle on 11/25/22, cultures grew MSSA again and he was treated with Rocephin daily infusion for 2 weeks. 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 with daily intake of beer as above -kidney function and LFTs normal -will place order for repeat BMP on DOS Essential HTN -managed on lisinopril -appears controlled RLS -managed on requip Chronic low back pain -s/p spinal stimulator placement in 06/2021 (above left hip) -on PRN percocet Body mass index is 28.39 kg/m .: Perioperative medication recommendations: Acetaminophen 325 MG tablet Ok to take morning of surgery baclofen 20 MG tablet Ok to take morning of surgery lidocaine 5 % Patch patch Do Not take the morning of surgery Lisinopril 2.5 MG tablet Do not take 24 hours prior to surgery Naproxen 500 MG tablet Do not take 5 days prior to surgery oxyCODONE-acetaminophen 5-325 MG per tablet Ok to take morning of surgery rOPINIRole 2 MG tablet Ok to take morning of surgery traZODone 100 MG tablet Ok to take night prior to surgery Above recommendations were discussed with the patient, and patient understood and agreed with the plan outlined above. Thank you for allowing us to participate in the care of Preston Carrasquillo. AIDAN Echevarria Division of Hospital Medicine [facility] 02-22-2023 History and physical note Pre-Operative Assessment (PAT) Outpatient Clinic Note H&P Date of Evaluation: 02/22/2023 Date of Surgery: 02/28/23 Surgeon: Eri Pre-Op Diagnosis: Staphylococcal arthritis of left ankle Planned Procedure: ARTHROSCOPY ANKLE W/ ARTHRODESIS - Left CHIEF COMPLAINT Preoperative cardiovascular testing and medication management for major surgery HISTORY Preston Carrasquillo is a 67 y.o. male with the below history presenting for preoperative evaluation. Chronic medical problems are stable with no acute changes in symptoms or medications: Yes Current or ongoing urinary symptoms: No LMP (if applicable): No LMP for male patient. Anesthesia: Personal or Family history of problems related to anesthesia (ex.Malignant Hyperthermia): No History of difficult intubations: No Pacer/AICD: No; PONV: No Penicillin Allergy: No Cardiac: Hx of Cardiac Disease/Stents - No Current Symptoms of Angina - No Current Symptoms of Decompensated Heart Failure - No Use of Beta-Blockers - No Current Functional Status ? 4 - Yes Pulmonary: History of FREDY: no History of asthma or COPD: No Smoker: no STOP-BANG Risk Assessment: STOP Questions o Do you snore? No o Frequently tired during the day? No o Observed gasping or choking episodes while asleep? No o Diagnosis of/or treated for high blood pressure? Yes BANG Questions o Age more than 50? Yes o Gender assignment at : Male? Yes o Neck circumference greater than 40 cm? No o BMI more then 35? - Body mass index is 28.39 kg/m . No High risk: No (High risk ? 5 STOP-BANG; STOP ? 2 AND Male; STOP ? 2 AND BMI > 35 kg/m2; STOP ? 2 AND Neck ? 40 cm) MEDICAL HISTORY: Past Medical History: Diagnosis Date Adopted Ankle joint pain Essential hypertension, benign Flat foot Hernia, umbilical Hyperlipidemia Ingrown toenail Low back pain Male erectile dysfunction Pain in left shoulder Pain in right shoulder Pityriasis versicolor RLS (restless legs syndrome) Past Surgical History: Procedure Laterality Date ARTHROSCOPY ANKLE W/ DEBRIDEMENT Left 12/30/2022 Laterality: Left; Surgeon: Cristopher Moreira MD; Location: [facility] OR I&D BONE CORTEX ANKLE LEG Left 12/30/2022 Laterality: Left; Surgeon: Cristopher Moreira MD; Location: [facility] OR INSERTION IMPLANT NONBIODEGRADABLE DRUG DELIVERY Left 12/30/2022 Laterality: Left; Surgeon: Cristopher Moreira MD; Location: [facility] OR ARTHROSCOPY SUBTALAR JOINT W/ DEBRIDEMENT Left 12/30/2022 Laterality: Left; Surgeon: Cristopher Moreira MD; Location: [facility] OR INSERTION NEUROSTIMULATOR ELECTRODE SPINAL PERCUTANEOUS N/A 07/13/2021 Laterality: N/A; Surgeon: Tyrell Weinberg DO; Location: [facility] INSERTION REPLACEMENT NEUROSTIMULATOR GENERATOR SPINAL N/A 07/13/2021 Laterality: N/A; Surgeon: Tyrell Weinberg DO; Location: [facility] ANALYSIS/PROGRAMMING NEUROSTIMULATOR GENERATOR SYSTEM N/A 07/13/2021 Laterality: N/A; Surgeon: Tyrell Weinberg DO; Location: [facility] ARTHROSCOPY SHOULDER W/ ROTATOR CUFF REPAIR Left 10/27/2017 Laterality: Left; Surgeon: Majo Phan MD; Location: [facility] ARTHROSCOPY SHOULDER W/ SUBACROMIAL DECOMPRESSION/ACROMIOPLASTY ADD-ON Left 10/27/2017 Laterality: Left; Surgeon: Majo Phan MD; Location: [facility] ARTHROSCOPY SHOULDER W/ DEBRIDEMENT Left 10/27/2017 Laterality: Left; Surgeon: Majo Phan MD; Location: [facility] HERNIA REPAIR SHOULDER SURGERY Right x2 SOCIAL HISTORY: reports that he has never smoked. He has never used smokeless tobacco. He reports current alcohol use of about 35.0 standard drinks per week. He reports that he does not use drugs. FAMILY HISTORY: family history is not on file. MEDICATIONS: Current Outpatient Medications Medication Instructions Acetaminophen (TYLENOL) 650 mg, Oral, EVERY 6 HOURS baclofen (LIORESAL) 20 mg, Oral, 2 TIMES DAILY lidocaine 5 % Patch patch 1 patch, Transdermal, EVERY 24 HOURS, Max of 12 hours of application then remove. Lisinopril (PRINIVIL) 2.5 mg, Oral, DAILY naproxen (NAPROSYN) 500 mg, Oral, 2 TIMES DAILY oxyCODONE-acetaminophen 5-325 MG per tablet 1 tablet, Oral, EVERY 8 HOURS NEEDED rOPINIRole (REQUIP) 2 mg, Oral, 2 TIMES DAILY traZODone (DESYREL) 100 mg, Oral, DAILY AT BEDTIME ALLERGIES: No Known Allergies REVIEW OF SYSTEMS The patient denies any chest pain on exertion, shortness of breath, orthopnea or palpitations. ROS also negative for fever, chills, headache, dizziness, cough, sputum, nausea, vomiting, diarrhea, constipation, dysuria, hematuria, rashes or easy bleeding. All other systems were reviewed and were negative. OBJECTIVE Vitals: 02/22/23 0949 BP: 98/60 Pulse: 97 Resp: 16 Temp: 98.2 degrees F (36.8 degrees C) TempSrc: Temporal SpO2: 98% Weight: 76.2 kg (168 lb) Height: 1.638 m (5' 4.5 ) Body mass index is 28.39 kg/m . General:67 y.o. male in NAD, alert and oriented x 3 HEENT: Normocephalic, pupils equal round and reactive to light, EOMI, moist mucous membranes noted. Neck: Full ROM, supple, no lymphadenopathy Pulmonary: bilateral breath sounds, clear to auscultation, no use of accessory muscles, no wheezes/rhonchi/rales Cardiovascular:Regular rate and rhythm. Normal S1, S2, No murmurs, rubs or gallops Abdomen: soft, nontender, nondistended, normoactive bowel sounds, No Hepatosplenomegaly Extremities: No cyanosis, clubbing. Left LE with non pitting edema to ankle/foot. Normal peripheral pulses noted. Neuro: Cranial nerves are grossly intact, No focal deficits noted, moving all 4 extremities. Skin: warm, dry, intact; no erythema or rash DATA REVIEW Lab Results Component Value Date WBC 7.17 02/22/2023 HGB 13.3 (L) 02/22/2023 HCT 40.0 02/22/2023 PLATELET 244 02/22/2023 MCV 94.3 02/22/2023 Lab Results Component Value Date SODIUM 129 (L) 02/22/2023 POTASSIUM 4.3 02/22/2023 CHLORIDE 99 02/22/2023 CO2 22 02/22/2023 BUN 19 02/22/2023 CREATSERUM 0.66 (L) 02/22/2023 GLUCOSE 89 02/22/2023 Lab Results Component Value Date INR 1.1 02/22/2023 PT 13.7 02/22/2023 No results found for: HGBA1C In addition to the labs above, I have personally reviewed all laboratory data [facility] the E[facility] Imaging/EKG and procedures: I have personally reviewed the EKG and my findings are NSR with right BBB (chronic and noted on previous EKG's) ECHO: Results for orders placed during the hospital encounter of 12/30/22 ECHOCARDIOGRAM 01/02/2023 (Final) Interpretation Summary - Poor quality study. - Grossly normal left ventricular size and function. Ejection fraction 55-60%. - Right ventricle is not well seen. Systolic function is grossly normal. - Normal atrial size. - Mitral annulus and aortic valve are calcified. - Valves poorly visualized. No large vegetation to extent seen. ASSESSMENT AND PLAN Pre-operative Risk Evaluation - Preston Carrasquillo is at a Acceptable risk for a low risk surgery - Per ACC/AHA guidelines, the patient requires no further testing at this time. - METS >4: yes, good exercise tolerance - Patient Meets the Following RCRI Criteria (RCRI): None: 0 criteria suggesting a 3.9% risk of major cardiac events - Please utilize continuous pulse oximetry & telemetry for at least 24 hours and consider using CPAP or BiPAP when patient is sleeping for patients if High risk for FREDY Staphylococcal arthritis of left ankle -s/p left ankle joint washout and medial ankle abscess debridement with excision of the posterior tibial tendon on 06/24/22. Cultures grew MSSA, treated with doxycycline x 2 weeks -s/p arthroscopic washout of the left ankle on 11/25/22, cultures grew MSSA again and he was treated with Rocephin daily infusion for 2 weeks. 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 with daily intake of beer as above -kidney function and LFTs normal -will place order for repeat BMP on DOS Essential HTN -managed on lisinopril -appears controlled RLS -managed on requip Chronic low back pain -s/p spinal stimulator placement in 06/2021 (above left hip) -on PRN percocet Body mass index is 28.39 kg/m .: Perioperative medication recommendations: Acetaminophen 325 MG tablet Ok to take morning of surgery baclofen 20 MG tablet Ok to take morning of surgery lidocaine 5 % Patch patch Do Not take the morning of surgery Lisinopril 2.5 MG tablet Do not take 24 hours prior to surgery Naproxen 500 MG tablet Do not take 5 days prior to surgery oxyCODONE-acetaminophen 5-325 MG per tablet Ok to take morning of surgery rOPINIRole 2 MG tablet Ok to take morning of surgery traZODone 100 MG tablet Ok to take night prior to surgery Above recommendations were discussed with the patient, and patient understood and agreed with the plan outlined above. Thank you for allowing us to participate in the care of Preston Carrasquillo. AIDAN Echevarria Division of Hospital Medicine documented in this encounter [facility] 02-22-2023 Instructions AIADN Echevarria - 02/22/2023 9:45 AM EDT Patient Name: Preston Carrasquillo You will be contacted 2 business days prior to your procedure date and will be notified of arrival time and where to register. What you need to bring to the hospital: 1. A photo ID 2. Insurance Card 3. Co-pay for insurance if applicable 4. A list of ALL MEDICATIONS you are currently taking including the dose and times that you take them You will be turning this list over to your nurse. 5. Crutches/walker if applicable. 6. CPAP machine if applicable. What to leave at home: 1. ALL valuables, cell phone, wallet, purse 2. ALL jewelry including watches, wedding bands and ANY FORM of piercing. 3. DO NOT wear lotion, makeup, nail bruneian, contact lens, or perfume/cologne. 4. DO NOT bring actual pill bottles or home medications unless instructed to do so. PRIOR to your surgery: 1. DO NOT eat or drink ANYTHING after midnight or the day of surgery. As well as, no gum or breath mints after midnight. 2. You may brush your teeth and rinse/gargle you mouth after midnight but avoid drinking too much water. 3. ABSTAIN from using nicotine in any form around the time of your surgery. Smoking or Chewing tobacco can delay wound healing and result in increased risk of infection after surgery. 4. ABSTAIN from alcohol or drug use for one week prior to surgery. Do not show up to your surgery intoxicated or under the influence of any drugs. Drug use within 24 hour of any kind could result in a cancellation of your procedure 5. If you are seen in ER or have any unplanned medical visits between now and your surgery date, please notify your surgeon's office prior to your day of surgery. THE DAY OF your surgery: WHAT TO DO ABOUT YOUR MEDICATIONS: Acetaminophen 325 MG tablet Ok to take morning of surgery baclofen 20 MG tablet Ok to take morning of surgery lidocaine 5 % Patch patch Do Not take the morning of surgery Lisinopril 2.5 MG tablet Do not take 24 hours prior to surgery Naproxen 500 MG tablet Do not take 5 days prior to surgery oxyCODONE-acetaminophen 5-325 MG per tablet Ok to take morning of surgery rOPINIRole 2 MG tablet Ok to take morning of surgery traZODone 100 MG tablet Ok to take night prior to surgery Hold NSAIDS for 5 days (Aleve, Motrin, Ibuprofen, Advil, Naproxen, Diclofenac, Celebrex and Meloxicam). Unless otherwise directed by your healthcare provider- It is okay to take Tylenol 1000 mg every 8 hours. Please contact [facility] if you have changes to your medications before surgery. We work in conjunction with your surgeon but cannot answer any specific questions about your surgery. If you have any questions specific to our visit today for your preoperative testing, please contact the [facility] at [phone]. Please direct any questions regarding your surgery to your surgeon s office documented in this encounter [facility] 02-13-2023 History of Present illness Narrative [facility] Date of Visit: 02/13/2023 Date of Surgery: 12/30/2022 Procedure: Left ankle/subtalar scope, debridement, bone biopsy, antibiotic cement Chief Complaint: Chief Complaint Patient presents with Left Ankle - Pre-operative Evaluation Here for L foot/ankle pre-op. Patient reports significant increase in pain since he was last seen. Notes bunion on big toe, hopeful to get everything taken care of in one surgery History of Present Illness: Preston Carrasquillo is a 67 y.o. male who presented with severe erosive changes of the Left ankle and subtalar joint due to chronic septic arthritis. He had insidious onset of pain and medial ankle swelling in and underwent ankle joint washout and medial ankle abscess debridement with excision of the posterior tibial tendon 06/24/22; cultures grew MSSA and he was treated with doxycycline for 2 weeks. Overall improved but did have ongoing pain. Pain acutely worsened again in November 2022 and he was taken to the OR on 11/25/22 for arthroscopic washout of the left ankle; cultures grew MSSA again and he was treated with Rocephin daily infusion for 2 weeks. He has had worsening pain and deformity with XR/MRI showing erosive changes of the ankle and subtalar joints and abundant synovitis and joint effusion. He is now 6 weeks s/p I&D and bone biopsy. There was no purulence encountered and cultures remain negative. Pain has been controlled. Using wheelchair. Completed 6 weeks IV antibiotics per ID recommendations [Ancef 3g every 12 hours through 02/10/23]. Medications: has a current medication list which includes the following prescription(s): acetaminophen, alteplase, ascorbic acid, aspirin ec, baclofen, cholecalciferol, CUSTOM MEDICATION, DISABILITY PLACARD, folic acid, gabapentin, lidocaine, lisinopril, naproxen, oxycodone-acetaminophen, ropinirole, and trazodone. Allergies: has No Known Allergies. PFSH: Past Medical History: has a past medical history of Ankle joint pain, Essential hypertension, benign, Flat foot, Hernia, umbilical, Hyperlipidemia, Ingrown toenail, Low back pain, Male erectile dysfunction, Pain in left shoulder, Pain in right shoulder, Pityriasis versicolor, and RLS (restless legs syndrome). Past Surgical History: has a past surgical history that includes arthroscopy shoulder w/ rotator cuff repair (Left, 10/27/2017); arthroscopy shoulder w/ subacromial decompression/acromioplasty add-on (Left, 10/27/2017); arthroscopy shoulder w/ debridement (Left, 10/27/2017); hernia repair; insertion neurostimulator electrode spinal percutaneous (N/A, 07/13/2021); insertion replacement neurostimulator generator spinal (N/A, 07/13/2021); analysis/programming neurostimulator generator system (N/A, 07/13/2021); arthroscopy ankle w/ debridement (Left, 12/30/2022); i&d bone cortex ankle leg (Left, 12/30/2022); insertion implant nonbiodegradable drug delivery (Left, 12/30/2022); and arthroscopy subtalar joint w/ debridement (Left, 12/30/2022). Family History: no known history of clotting disorders Social History: reviewed in chart. reports that he has never smoked. He has never used smokeless tobacco.. Occupation: Physical Examination: GENERAL: alert and oriented x3; well-appearing, no acute distress Wt Readings from Last 1 Encounters: 02/06/23 76.7 kg (169 lb) , There is no height or weight on file to calculate BMI. HEAD: Normocephalic, atraumatic. CHEST: Equal chest rise bilaterally. CARDIOVASCULAR: palp DP pulses bilaterally MUSCULOSKELETAL: Gait: currently nonweightbearing Inspection/ Palpation: Left foot/ankle: severe hindfoot valgus, well healed incisions, mild swelling, appropriate mild ttp, Homans sign No NEUROVASCULAR: no focal deficits; sensation intact to light touch; toes well perfused SKIN: no erythema/cellulitis; no signs of infection. Radiology: Radiographs: 3 weightbearing views of the Left foot and ankle (02/13/23) were independently reviewed and demonstrate ankle/subtalar arthritis with severe valgus Assessment/Plan: ICD-10-CM 1. 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 Arthritis of first metatarsophalangeal (MTP) joint of left foot M19.072 Preston has severe erosive changes of the ankle and subtalar due to chronic septic arthritis. He has undergone staged debridement and 6 weeks IV antibiotics - plan for Left scope assisted TTC arthrodesis with deformity correction - schedule at [facility] 02/28/23 with overnight stay - consent completed today - preadmission testing scheduled 02/22/23 Anticipated postop rehab pending clinical/radiographic healing: * 0-2 weeks: splint, nonweightbearing * 2-5 weeks: splint, nonweightbearing * 5-8 weeks: CAM boot, weightbearing for transfers only * 8-12weeks: CAM boot, progressive weightbearing as tolerated, start physical therapy for reconditioning and gait training * >12 weeks: wean CAM boot as tolerated, progressive return to activity, bracing/orthotics as needed The diagnosis and treatment plan were discussed at length. Surgical specifics; associated risks and benefits; treatment alternatives; outcome expectations; and rehabilitation plan were discussed thoroughly. Risks reviewed included but were not limited to pain, bleeding, infection, decreased range of motion, weakness, sensitive/unsightly scar, neurovascular injury, poor outcome, delayed union, nonunion, malunion, and need for subsequent surgeries. The patient expressed understanding, agrees, and wishes to proceed. The patient understands the plan and all questions were answered. documented in this encounter [facility] 02-13-2023 Instructions Cristopher Moreira MD - 02/13/2023 2:15 PM EDT Assessment/Plan: ICD-10-CM 1. 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 Arthritis of first metatarsophalangeal (MTP) joint of left foot M19.072 Preston has severe erosive changes of the ankle and subtalar due to chronic septic arthritis. He has undergone staged debridement and 6 weeks IV antibiotics - plan for Left scope assisted TTC arthrodesis - schedule at [facility] 02/28/23 with overnight stay - consent completed today Anticipated postop rehab pending clinical/radiographic healing: * 0-2 weeks: splint, nonweightbearing * 2-5 weeks: splint, nonweightbearing * 5-8 weeks: CAM boot, weightbearing for transfers only * 8-12weeks: CAM boot, progressive weightbearing as tolerated, start physical therapy for reconditioning and gait training * >12 weeks: wean CAM boot as tolerated, progressive return to activity, bracing/orthotics as needed documented in this encounter [facility] 01-12-2023 History of Present illness Narrative [facility] Date of Visit: 01/12/2023 Date of Surgery: 12/30/2022 Procedure: Left ankle/subtalar scope, debridement, bone biopsy, antibiotic cement Chief Complaint: Chief Complaint Patient presents with Left Ankle - Post Op Visit 13d s/p Left ankle and subtalar scope with extensive debridement and synovectomy, Left ankle arthrotomy and excisional debridement with craterization of distal tibia for osteomyelitis, Left ankle and subtalar joint placement of antibiotic cement (DOS 12/30/22-) Reports 05/22. History of Present Illness: Preston Carrasquillo is a 67 y.o. male who presents today for a postoperative visit 2 weeks s/p I&D and bone biopsy. There was no purulence encountered and cultures remain negative. Pain has been controlled. Using CAM boot and crutches. Will complete 6 weeks IV antibiotics per ID recommendations [Ancef 3g every 12 hours through 02/10/23]. He denies fevers, chills, malaise. He denies calf pain, chest pain, shortness of breath. Physical Examination: GENERAL: alert, well-appearing, no acute distress Wt Readings from Last 1 Encounters: 01/02/23 73.5 kg (162 lb 0.6 oz) , There is no height or weight on file to calculate BMI. MUSCULOSKELETAL: Gait: currently nonweightbearing Inspection/ Palpation: Left foot/ankle: well healed incisions, mild swelling, appropriate mild ttp, Homans sign No NEUROVASCULAR: no focal deficits; sensation intact to light touch; toes well perfused SKIN: no erythema/cellulitis; no signs of infection. Assessment/Plan: ICD-10-CM 1. Postop check Z09 2. 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 He will seek medical attention immediately if experiencing any of these. - will continue Aspirin for DVT prophylaxis while immobilized and nonweightbearing - followup in the office in 1 month, XOA- WB L foot and ankle - plan for reconstruction with tibiotalocalcaneal fusion in mid February The diagnosis and treatment plan were discussed at length. The patient understands the plan and all questions were answered. documented in this encounter [facility] 01-12-2023 Instructions Cristopher Moreira MD - 01/12/2023 1:00 PM EST Assessment/Plan: ICD-10-CM 1. Postop check Z09 2. 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 He will seek medical attention immediately if experiencing any of these. - will continue Aspirin for DVT prophylaxis while immobilized and nonweightbearing - followup in the office in 1 month, XOA- WB L foot and ankle - plan for reconstruction with tibiotalocalcaneal fusion in mid February Wound Care: Your incisions are healing well. You may wash your incisions with soap and water, then pat dry well. Do not soak the incisions in water or swim until scabbing has resolved. If you had steri-strips placed, these will fall off over-time. Remove steri-strips in one week if still present. You do not need to replace the steri-strips. Avoid the use of lotions or creams to the incisions until scabbing has resolved. If you develop fever of greater than 101.5, pain that is not being controlled by the medication, or redness, swelling or drainage from your surgical site that is different or worse please call our office. General Care: Continue to ice and elevate your left ankle to reduce swelling and pain. Weight bearing as tolerated. -Signs and Symptoms of a blood clot (calf pain, swelling of the lower leg, or Chest Pain, Shortness Of Breath). Seek medical attention immediately if experiencing any of these For your next appointment: If you have been given a follow up appointment and require xrays next time please check in at registration on the 1st floor twenty minutes before your scheduled appointment in order to complete your xrays. If you have questions or concerns: Please call our office at [phone] or you can mychart any questions/concerns. Fax- [phone] documented in this encounter [facility] 01-12-2023 Miscellaneous Notes Addended by: MAJO NELSON on: 01/12/2023 02:15 PM Modules accepted: Orders documented in this encounter [facility] 01-12-2023 Note Addended by: MAJO NELSON on: 01/12/2023 02:15 PM Modules accepted: Orders [facility] 01-12-2023 Note Addended by: MAJO NELSON on: 01/12/2023 02:15 PM Modules accepted: Orders [facility] 01-12-2023 Hospital Discharge instructions Landen Valdes MD - 01/12/2023 1:27 AM EST Continue current medications as prescribed. Sure to avoid sleeping in over dry room. Use plain nasal saline spray several times a day for nasal dryness and comfort. Please seek medical attention immediately for any acute concerns. The following attachments cannot be sent through Care Everywhere.SOB (Shortness of Breath) ([place])documented in this encounter [facility] Phone: 01-06-2023 Telephone encounter Note Pt is rescheduled from 02/09/23 to 02/06/[address] Moreira. [facility] 01-06-2023 Miscellaneous Notes Pt is rescheduled from 02/09/23 to 02/06/[address] Moreira. Spoke to patient about his wound care. His pain is under control. He is maintaining the boot and continues to RICE. Currently, the nurse is changing his PICC dressing. He is optimistic about undergoing the next step after clearing this infection. He is following ID advice on continuing IV abx. He follows up for wound check next week and then again February 09 for his second visit. He would like to schedule surgery at the earliest possible time that Dr. Moreira has available. I let him know that we would discuss surgical planning at that time and often we'd like to see him off all antibiotics for a period of time before any implants. If he needs to be scheduled or rescheduled to speak to Dr. Moreira, we could always facilitate a telehealth or new appointment. He appreciated the call and will touch base next week as needed (refills, questions, etc) Pt is having drainage and still there is pain and when should the pain exceed. Pt wants to know the final surgery date. Please give call back Called and spoke with Lb He is not happy about being on IV ATB 24 hours a day. Discussed this was what the ID dept recommended and that Dr. Moreira would defer to what ID feels best for treatment. He states he will call ID and discuss if there are any options. Pt would like a call back about medication and pt has some concerns and questions about Cefazolin, pt states he was pressured into buying medication and was told to take so many in a timely manner please call back documented in this encounter [facility] 01-06-2023 Telephone encounter Note Spoke to patient about his wound care. His pain is under control. He is maintaining the boot and continues to RICE. Currently, the nurse is changing his PICC dressing. He is optimistic about undergoing the next step after clearing this infection. He is following ID advice on continuing IV abx. He follows up for wound check next week and then again February 09 for his second visit. He would like to schedule surgery at the earliest possible time that Dr. Moreira has available. I let him know that we would discuss surgical planning at that time and often we'd like to see him off all antibiotics for a period of time before any implants. If he needs to be scheduled or rescheduled to speak to Dr. Moreira, we could always facilitate a telehealth or new appointment. He appreciated the call and will touch base next week as needed (refills, questions, etc) [facility] Work Phone: 01-05-2023 Telephone encounter Note Pt is having drainage and still there is pain and when should the pain exceed. Pt wants to know the final surgery date. Please give call back [facility] 01-03-2023 Telephone encounter Note Called and spoke with Lb He is not happy about being on IV ATB 24 hours a day. Discussed this was what the ID dept recommended and that Dr. Moreira would defer to what ID feels best for treatment. He states he will call ID and discuss if there are any options. [facility] Work Phone: 01-03-2023 Telephone encounter Note Pt would like a call back about medication and pt has some concerns and questions about Cefazolin, pt states he was pressured into buying medication and was told to take so many in a timely manner please call back [facility] 01-02-2023 Miscellaneous Notes Went into pt room to assist them. Pt and had questions about their infusion and antibiotic and said they would like to speak with the CIVIL ENGINEERING PROJECT DESIGNER that was in here before . This RN messaged Infectious Disease team. Team was willing to come answer pts questions when available. Pt and family not willing to wait to speak with team. RN educated, and encouraged pt to wait and speak with Infectious Disease team. Pt still wanting to leave. ID team informed. Problem: Patient Care Overview Goal: Plan of Care Review Outcome: Adequate for Discharge Goal: Individualization & Mutuality Outcome: Adequate for Discharge Goal: Discharge Needs Assessment Outcome: Adequate for Discharge Goal: Interdisciplinary Rounds/Family Conf Outcome: Adequate for Discharge Problem: Pain, Acute (Adult) Goal: Identify Related Risk Factors and Signs and Symptoms Description: Related risk factors and signs and symptoms are identified upon initiation of Human Response Clinical Practice Guideline (CPG) Outcome: Adequate for Discharge Goal: Acceptable Pain Control/Comfort Level Description: Patient will demonstrate the desired outcomes by discharge/transition of care. Outcome: Adequate for Discharge Problem: Dysphagia (Adult) Goal: Identify Related Risk Factors and Signs and Symptoms Description: Related risk factors and signs and symptoms are identified upon initiation of Human Response Clinical Practice Guideline (CPG) Outcome: Adequate for Discharge Goal: Functional/Safe Swallow Description: Patient will demonstrate the desired outcomes by discharge/transition of care. Outcome: Adequate for Discharge Goal: Compensatory Techniques to Improve Safety/Function with Swallowing Description: Patient will demonstrate the desired outcomes by discharge/transition of care. Outcome: Adequate for Discharge Faxed MILLI, AVS, and Facesheet to [facility]. Called [facility] and spoke with Darlene. All questions were answered. Message left for Aprmonie at [facility], call back number provided. Discharge paper work was discussed and reviewed with patient. Patient aware of new scripts to get filled, medications to continue, as well as medications to stop taking. Patient made aware of signs and symptoms of infection following surgery, wound care, and precautions related to their surgery. Pt aware of when to seek emergency help/care. All questions were answered. PICC line education added to AVS. PIV removed. Pt to discharge to home. Problem: Ortho - Goals Goal: Ortho - Sit to Stand Description: Pt will perform sit to/from stand transfer with no greater than sup assist with wheeled walker for improved ability to safely discharge to next level of care. Outcome: Ongoing Goal: Ortho - Ambulate 100 ft Description: Pt will ambulate 100 feet with stand by assist with wheeled walker NWBing or WBing as ordered to promote home navigation. Outcome: Ongoing Goal: Ortho - Knee ROM Description: Pt will demonstrate independence with donning/doffing the boot on the L LE Outcome: Ongoing picc placement verified using [employer] technology. picc placement picture not able to be saved due to bad drive. picc placement verified visually by 2 picc nurses, dinh gleason and coni munoz. Images from the original note were not included. Report of PICC Consultation and Evaluation: Patient seen and evaluated for PICC insertion using ultrasound guidance. ID band present, allergies and limb precautions verified with patient/nurse. Skin integrity within normal limits at time of insertion. No evidence of ecchymosis, infiltration, hematoma, edema, or any condition that would prevent safe insertion of a PICC with ultrasound. I have reviewed pertinent laboratory results. Lab Results Component Value Date WBC 6.79 01/02/2023 HGB 12.0 (L) 01/02/2023 HCT 36.6 (L) 01/02/2023 PLATELET 233 01/02/2023 MCV 93.8 01/02/2023 Lab Results Component Value Date CREATSERUM 0.82 01/02/2023 No results found for: INR, PT No results found for: PTT Temp Readings from Last 1 Encounters: 01/02/23 97.2 F (36.2 C) (Oral) Blood cultures have been reviewed. I have discussed the following issues with the ordering Clinician: Procedure explained to patient. Anatomical distortion to interfere with placement:no known restriction Arm preference for venous access: Left Arm Patient is alert, cooperative, no distress, appears stated age Patient Teaching: Yes Family Teaching: No Whitney Protocol/Time Out Completed under Procedure Documentation Step 3: Time Out Includes Patient and Procedure (side/site marked when applicable),: yes Patient Positioning Correct?: Yes The need for antibiotics or fluids to be administered: n/a Relevant images displayed (if applicable): yes Care of specimens (if applicable): N/A Whitney Protocol Verification Name of Practitioner attesting all steps of the Whitney Protocol have been completed: coni/dinh PROCEDURE DETAILS: PICC Insertion Procedure Using standard sterile technique access was obtained. Good blood return noted, catheter flushed easily with 10mls 0.9 NS per lumen. Statlock device used to secure PICC. Dressing applied. Pt denies pain at insertion site. PICC Line - Single Lumen 01/02/23 1219 basilic vein (medial side of arm), left 4 Fr (Active) 01/02/23 1219 Present On Admission : no Lumen 1: Lumen 2: Lumen 3: Location: basilic vein (medial side of arm), left Device/Lot Number: pressure injectable catheter;open-ended catheter;valved catheter;does not require heparinized flush;lot number (specify) Buck Swamper/Lot Number: [id number] Size/Length: 4 Fr Inserted Catheter Length (cm): 44 Total Length (cm): 44 Placement Verification: tip confirmation system utilized Tip Termination: Guiding Device: ultrasound Indication/Daily Review of Necessity: antibiotic therapy Inserted By: Registered Nurse Unsuccessful Insertion Attempts: 0 Unsuccessful Attempt Location/Site: Pain Prevention/Patient Tolerance: distraction;intradermal injection Removal: Placement Over Guidewire: yes Additional Comments: Lumen 4: Lumen 5: Patient tolerated procedure well without any complications Extra insertion note if applicable: [X] Absorbable hemostat applied to insertion site. [] Antimicrobial foam disc/dressing. [] Unable to place Antimicrobial foam disc/drsg due to: [] CXR ordered for PICC tip confirmation. [] Obtained labs. ( labeled labs taken to in biohazard bag ) [X] Call light in reach. [X] Bed low and locked. [X] Tray table within reach. Education: Patient/Family informed to notify nurse of any complications including pain, redness, swelling, or leakage post insertion. Central Venous Catheter Insertion Checklist Was the line placed emergently (e.g., during Code Blue or trauma): N/A Before the procedure, did the clinician 1. Document informed consent. yes 2. Perform timeout. Yes 3. Lumber Stacker Operator: If enter sterile field, uses sterile gown and gloves, cap, mask/eye protection. N/A 4. Prep site with ChloraPrep for 30 sec minimum (if femoral 120 sec minimum). Yes 5. Sterile technique to drape patient from head to toe. Yes During the procedure, did the clinician 1. Maintain a sterile field. Yes 2. Obtain a qualified concaving machine operator IF 3 unsuccessful sticks. (except if emergent); document the number of attempts. N/A 3. Change gloves: if a catheter was exchanged over a guide wire before handling the new sterile catheter. N/A 4. Account for the guidewire at all times. Yes After the procedure, did the clinician 1. Apply a sterile dressing immediately after insertion. Yes 2. Document date and time on the dressing. Yes 3. Perform hand hygiene. Yes 4. All staff wore a mask until sterile dressing placed. Yes 5. Dispose sharps immediately after the procedure. Yes I have completed the Central Venous Catheter Insertion Checklist. Second assessment completed per policy.There are no noted changes from previous assessment unless otherwise documented. Pain is managed with analgesics and acetaminophen. Patient is educated on pain management, fall precautions and infection prevention measures. He verbalizes understanding. Bed alarm is on and call light is within reach. Problem: Patient Care Overview Goal: Plan of Care Review Outcome: Ongoing Goal: Individualization & Mutuality Outcome: Met This Shift Problem: Pain, Acute (Adult) Goal: Identify Related Risk Factors and Signs and Symptoms Description: Related risk factors and signs and symptoms are identified upon initiation of Human Response Clinical Practice Guideline (CPG) Outcome: Progressing Toward Goal Goal: Acceptable Pain Control/Comfort Level Description: Patient will demonstrate the desired outcomes by discharge/transition of care. Outcome: Progressing Toward Goal Problem: Mobility, Physical Impaired (Adult) Goal: Identify Related Risk Factors and Signs and Symptoms Description: Related risk factors and signs and symptoms are identified upon initiation of Human Response Clinical Practice Guideline (CPG) Outcome: Progressing Toward Goal Goal: Enhanced Mobility Skills Description: Patient will demonstrate the desired outcomes by discharge/transition of care. Outcome: Progressing Toward Goal Goal: Enhanced Functionality Ability Description: Patient will demonstrate the desired outcomes by discharge/transition of care. Outcome: Progressing Toward Goal Problem: Surgery Nonspecified (Adult) Goal: Anesthesia/Sedation Recovery Outcome: Met This Shift Problem: Dysphagia (Adult) Goal: Functional/Safe Swallow Description: Patient will demonstrate the desired outcomes by discharge/transition of care. Outcome: Met This Shift Problem: Patient Care Overview Goal: Plan of Care Review Outcome: Ongoing Goal: Individualization & Mutuality Outcome: Ongoing Goal: Discharge Needs Assessment Outcome: Ongoing Problem: Pain, Acute (Adult) Goal: Identify Related Risk Factors and Signs and Symptoms Description: Related risk factors and signs and symptoms are identified upon initiation of Human Response Clinical Practice Guideline (CPG) Outcome: Ongoing Goal: Acceptable Pain Control/Comfort Level Description: Patient will demonstrate the desired outcomes by discharge/transition of care. Outcome: Ongoing Problem: Surgery Nonspecified (Adult) Goal: Signs and Symptoms of Listed Potential Problems Will be Absent, Minimized or Managed (Surgery Nonspecified) Description: Signs and symptoms of listed potential problems will be absent, minimized or managed by discharge/transition of care (reference Surgery Nonspecified (Adult) CPG). Outcome: Ongoing Problem: Dysphagia (Adult) Goal: Identify Related Risk Factors and Signs and Symptoms Description: Related risk factors and signs and symptoms are identified upon initiation of Human Response Clinical Practice Guideline (CPG) Outcome: Ongoing Goal: Compensatory Techniques to Improve Safety/Function with Swallowing Description: Patient will demonstrate the desired outcomes by discharge/transition of care. Outcome: Ongoing Problem: Mobility, Physical Impaired (Adult) Goal: Identify Related Risk Factors and Signs and Symptoms Description: Related risk factors and signs and symptoms are identified upon initiation of Human Response Clinical Practice Guideline (CPG) Outcome: Ongoing Goal: Enhanced Mobility Skills Description: Patient will demonstrate the desired outcomes by discharge/transition of care. Outcome: Ongoing Goal: Enhanced Functionality Ability Description: Patient will demonstrate the desired outcomes by discharge/transition of care. Outcome: Ongoing Reassessment completed per policy, no noted changes from previous assessment unless otherwise documented. Pt. Is alert, oriented, and vitals are stable. Pt is oriented to call light and alarms. All questions were answered. Pt. Resting comfortably. Problem: Ortho - Goals Goal: Ortho - Sit to Stand Description: Pt will perform sit to/from stand transfer with no greater than sup assist with wheeled walker for improved ability to safely discharge to next level of care. Outcome: Ongoing Goal: Ortho - Ambulate 100 ft Description: Pt will ambulate 100 feet with stand by assist with wheeled walker NWBing or WBing as ordered to promote home navigation. Outcome: Ongoing Goal: Ortho - Knee ROM Description: Pt will demonstrate independence with donning/doffing the boot on the L LE Outcome: Ongoing Second assessment completed per policy.There are no noted changes from previous assessment unless otherwise documented. Patient is educated on pain management, fall precautions and infection prevention measures. He verbalizes understanding. Bed alarm is on and call light is within reach. Problem: Patient Care Overview Goal: Plan of Care Review Outcome: Ongoing Goal: Individualization & Mutuality Outcome: Met This Shift Problem: Pain, Acute (Adult) Goal: Identify Related Risk Factors and Signs and Symptoms Description: Related risk factors and signs and symptoms are identified upon initiation of Human Response Clinical Practice Guideline (CPG) Outcome: Ongoing Goal: Acceptable Pain Control/Comfort Level Description: Patient will demonstrate the desired outcomes by discharge/transition of care. Outcome: Ongoing Problem: Mobility, Physical Impaired (Adult) Goal: Identify Related Risk Factors and Signs and Symptoms Description: Related risk factors and signs and symptoms are identified upon initiation of Human Response Clinical Practice Guideline (CPG) Outcome: Ongoing Goal: Enhanced Mobility Skills Description: Patient will demonstrate the desired outcomes by discharge/transition of care. Outcome: Ongoing Goal: Enhanced Functionality Ability Description: Patient will demonstrate the desired outcomes by discharge/transition of care. Outcome: Ongoing Problem: Pain, Acute (Adult) Goal: Identify Related Risk Factors and Signs and Symptoms Description: Related risk factors and signs and symptoms are identified upon initiation of Human Response Clinical Practice Guideline (CPG) Outcome: Ongoing Goal: Acceptable Pain Control/Comfort Level Description: Patient will demonstrate the desired outcomes by discharge/transition of care. Outcome: Ongoing Problem: Patient Care Overview Goal: Plan of Care Review Outcome: Ongoing Goal: Individualization & Mutuality Outcome: Ongoing Goal: Discharge Needs Assessment Outcome: Ongoing Goal: Interdisciplinary Rounds/Family Conf Outcome: Ongoing Problem: Pain, Acute (Adult) Goal: Identify Related Risk Factors and Signs and Symptoms Description: Related risk factors and signs and symptoms are identified upon initiation of Human Response Clinical Practice Guideline (CPG) Outcome: Ongoing Goal: Acceptable Pain Control/Comfort Level Description: Patient will demonstrate the desired outcomes by discharge/transition of care. Outcome: Ongoing Problem: Surgery Nonspecified (Adult) Goal: Signs and Symptoms of Listed Potential Problems Will be Absent, Minimized or Managed (Surgery Nonspecified) Description: Signs and symptoms of listed potential problems will be absent, minimized or managed by discharge/transition of care (reference Surgery Nonspecified (Adult) CPG). Outcome: Ongoing Goal: Anesthesia/Sedation Recovery Outcome: Progressing Toward Goal Pt arrived to room on transport cart. Pt was moved over to our bed via 3 person assist.Admission questions were done. Assessment completed per policy. Pt's vital signs stable, room air. Pt educated on the use of the calls lights, and all alarms. All questions were answered. On admission to EN5, from PACU a dual RN initial assessment of skin condition was performed by Jamie Arciniega RN and Kash Oropeza. Skin Assessment: Skin within defined limits:Yes LDA Added:No Jamie Arciniega RN Date of Procedure: [id number] Patient: Preston Carrasquillo ( ) Surgeon: Cristopher Moreira MD Lumber Stacker Operator: Damaso Dill MD; CLAUDIA Malik Preoperative Diagnosis: 1. Chronic Left ankle pain 2. Left ankle chronic osteomyelitis 3. Left ankle septic arthritis 4. Left subtalar septic arthritis Postoperative Diagnosis: 1. Chronic Left ankle pain 2. Left ankle anterior impingement Procedure: 1. Left ankle arthroscopy with extensive debridement and synovectomy 2. Left subtalar arthroscopy with extensive debridement and synovectomy 3. Left ankle arthrotomy and excisional debridement with craterization of distal tibia for osteomyelitis 4. Left ankle and subtalar joint placement of antibiotic cement Anesthesia: LMA, regional block Estimated Blood Loss: 30ml Findings: bloody synovial fluid without gross purulence; abundant thickened synovitis in the ankle and subtalar joints; severe cartilage wear s/p septic arthritis Implants: Stimulan antibiotic cement (5cc) mixed with 1g vancomycin/1.2g tobramycin Specimen: 1. Left ankle joint synovial aspirate (2.5cc bloody fluid, no purulence) for cell count and culture 2. Left ankle joint synovium and bone fragments for culture 3. Left subtalar joint synovium and bone fragments for culture 4. Left distal tibia bone for pathology Drains: 10Fr hemovac Left ankle Complications: none apparent Indications: Preston Carrasquillo is a 67 year old male who presented with severe erosive changes of the Left ankle and subtalar joint due to chronic septic arthritis. He had insidious onset of pain and medial ankle swelling in and underwent ankle joint washout and medial ankle abscess debridement with excision of the posterior tibial tendon 06/24/22; cultures grew MSSA and he was treated with doxycycline for 2 weeks. Overall improved but did have ongoing pain. Pain acutely worsened again in November 2022 and he was taken to the OR on 11/25/22 for arthroscopic washout of the left ankle; cultures grew MSSA again and he was treated with Rocephin daily infusion for 2 weeks. He has had worsening pain and deformity with XR/MRI showing erosive changes of the ankle and subtalar joints and abundant synovitis and joint effusion. He has not been on any antibiotics for >2 weeks. The plan is for ankle and subtalar arthroscopy and debridement with bone biopsy and culture, and placement of antibiotic cement. Once cleared of infection we may plan for staged reconstruction with tibiotalocalcaneal fusion. The diagnosis and treatment plan were discussed at length. Surgical specifics; associated risks and benefits; treatment alternatives; outcome expectations; and rehabilitation plan were discussed thoroughly. Risks reviewed included but were not limited to pain, bleeding, infection, decreased range of motion, weakness, sensitive/unsightly scar, neurovascular injury, poor outcome, progression of ankle arthritis, and need for subsequent surgeries. The patient expressed understanding, agreed, and wished to proceed. Description of Operation: The patient was met and identified in the preoperative holding area. Informed consent was verified and the surgical site was marked with a surgical pen. A regional block was administered by the anesthesia team. The patient was then transported to the operating room and placed supine on the operating table with all extremities padded appropriately. A team huddle was performed per protocol. Anesthesia was induced and by the anesthesia provider. Perioperatvie antibiotics were held until cultures were taken. A calf tourniquet was then applied, and the patient was positioned with small padded bump under the hip. The extremity was prepped and draped in sterile fashion and a surgical timeout was performed per protocol to again verify correct patient, surgical site and laterality, procedure, and appropriate instrumentation and implants. Attention was first turned to the ankle joint aspiration. An 18g needle was inserted at the medial joint line and @2.5cc of bloody, non-purulent synovial fluid was aspirated and sent to the lab for cell count and culture. Next attention was turned to the ankle arthroscopy and extensive debridement. The limb was exsanguinated with an esmarch dressing and calf tourniquet inflated to 250mmHg. 5cc of a 50/50 mixture of 0.5% Marcaine and 1% lidocaine with epinephrine was injected into the ankle joint and about the portal sites. Standard anteromedial and anterolateral ankle arthroscopic portals were established with an 11 blade and blunt fabiola and spread technique with care to protect the saphenous vein and superficial peroneal nerve. Diagnostic arthroscopy was performed with the following findings. 1. Abundant thickened synovitis throughout the joint without gross purulence. 2. Severe erosive bipolar tibiotalar cartilage wear with areas of full thickness cartilage loss. 3. Multiple small loose bodies. Extensive debridement of the synovitis was performed with the arthroscopic shaver to debride the medial and lateral gutters and anterior recess. Chondroplasty was performed to remove some large unstable cartilage flaps and loose bodies. Pieces of synovium and bone fragments were taken with a pituitary rongeur and sent for culture. The joint was washed out with >3L saline. Next attention was turned to the subtalar arthroscopy and extensive debridement. The portals were established with one at the tip of the distal fibula and one 2cm anterior just above the anterior process. Diagnostic arthroscopy was performed with the following findings. 1. Abundant thickened synovitis within the sinus tarsi without gross purulence. 2. Mild erosive changes at the anterior aspect of the posterior facet of the subtalar joint. Extensive debridement of the synovitis was performed with the arthroscopic shaver to debride the sinus tarsi and lateral gutter. Pieces of synovium and bone fragments were taken with a pituitary rongeur and sent for culture. The joint was irrigated with saline. Next we completed the excisional debridement and craterization of the distal tibia. A 4cm anteromedial arthrotomy incision was made just medial to the tibialis anterior. Care was taken to protect the saphenous bundle and tibialis anterior tendon. Hemostasis was maintained with electrocautery. The ankle joint capsule was incised. Sharp excisional debridement of synovium, periosteum and bone was performed with rongeur and chisel. Using a chisel we took a segment of bone off the anterior plafond and sent the bone fragment for pathology. The joint was further lavaged with saline. Hemostasis was maintained. The tourniquet was deflated after 50 minutes and hemostasis was maintained. Next was placed the antibiotic cement. We made beads out of Stimulan antibiotic cement (5cc) mixed with 1g vancomycin/1.2g tobramycin and placed them across the ankle joint and then into the sinus tarsi/subtalar joint. A 10Fr hemovac drain was placed in the ankle joint. The wounds were closed with 3.0 monocryl and 3.0 ethilon sutures. Sterile dressings and a CAM boot were applied. The patient tolerated the procedure well with no apparent complications, was awakened from anesthetic in the operating room, and transported to the PACU in stable condition. The patient will be admitted for Infectious Disease consultation. LIekly plan for 6 weeks IV antibiotics and possible staged tibiotalocalcaneal arthrodeisis. Followup in 2 weeks for suture removal, and will continue on Aspirin for DVT prophylaxis while immobilized. Continue CAM boot immobilization, may weightbear as tolerated. Orthopaedic Surgery Plan of Care Note Preston Carrasquillo is a 67 y.o. male who is status post arthroscopic I&D of L ankle and subtalar joint with placement of stimulan on 12/30/[address] Moreira Please release sign and held orders upon arrival to the floor Activity: PT/OT, CAM boot to the LLE Weight Bearing Status: NWB LLE, okay to WB for transfers Pain: Multimodal, PO with IV breakthrough Diet: Advance as tolerated Abx: Empiric vancomycin, tailor pending culture results and ID consult Cultures: FU cultures DVT PPx: SCD's, LVX while inpatient starting POD1 Dressing: Dry dressing, maintain until POD2. Reinforce as needed. Drain: JPx1, record output q8hr Imaging: No further imaging required at this time Disposition: Pending cultures results, ID consult for antibiotic recommendations, PT/OT, pain control Follow-Up: Return to clinic in [address] Moreira for a wound check. Please page the field artillery fire control man orthopaedic surgery resident with any questions. Damaso Dill MD Orthopaedic Surgery Pager: [phone] Preston Carrasquillo ([phone]) PRE OPERATIVE DIAGNOSIS Septic arthritis of left ankle [M00.9] Chronic osteomyelitis of left ankle [M86.672] POST OPERATIVE DIAGNOSIS Post-Op Diagnosis Codes: * Septic arthritis of left ankle [M00.9] * Chronic osteomyelitis of left ankle [M86.672] PROCEDURE PERFORMED Procedure(s) (LRB): ARTHROSCOPY ANKLE W/ EXTENSIVE DEBRIDEMENT (Left) I&D BONE CORTEX ANKLE LEG (Left) INSERTION IMPLANT NONBIODEGRADABLE DRUG DELIVERY (Left) ARTHROSCOPY SUBTALAR JOINT W/ DEBRIDEMENT (Left) PRIMARY CLOSURE Yes INTRAOPERATIVE FINDINGS abundant thickened synovitis in ankle and subtalar joints with severe cartilage wear; no gross purulence SURGEON Surgeon(s) and Role: * Cristopher Moreira MD - Primary ANESTHESIOLOGIST Anesthesiologist: Kimberly Murphy MD [place]: Aubree Plasencia APRN-[employer] SURGICAL STAFF Billing Spec: Vanessa Wilkes RN Physician Lumber Stacker Operator: Todd Martinez PA-C Relief Billing Spec: Koko Knox RN Scrub Person: Lorna Cuadra Resident Assisting: Damaso Dill MD COMPLICATIONS None ESTIMATED BLOOD LOSS 30 ml SPECIMENS Microbiology specimen sent ID Type Source Tests Collected by Time Destination 1 : Left Tibia Permanent BONE SURG PATH REQUEST Cristopher Moreira MD 12/30/20221642 A : Left Ank. syn. fluid for cell count and cult. Other SYNOVIAL FLUID: LEFT ANKLE FUNGUS CULTURE, ACID FAST CULTURE, ANAEROBE CULTURE, BACTERIAL CULTURE AND DIRECT SMEAR, LESION, TISSUE, DEVICE Cristopher Moreira MD 12/30/2022 1553 B : Left Ankle Culture Tissue TISSUE FUNGUS CULTURE, ACID FAST CULTURE, TISSUE, ANAEROBE CULTURE, BACTERIAL CULTURE AND DIRECT SMEAR, LESION, TISSUE, DEVICE Cristopher Moreira MD 12/30/2022 1642 C : Left Subtalar Culture Tissue TISSUE FUNGUS CULTURE, ACID FAST CULTURE, TISSUE, ANAEROBE CULTURE, BACTERIAL CULTURE AND DIRECT SMEAR, LESION, TISSUE, DEVICE Cristopher Moreira MD 12/30/2022 1643 Cristopher Moreira MD December 30, 2022 4:57 PM I certify that this patient requires inpatient services at this time. I anticipate the expected length of stay will include at least two midnights. Current treatment plan includes surgical debridement, IV antibiotics, Infectious Disease consult. Plans for post hospitalization care will be discharge to home with home health. documented in this encounter [facility] 01-02-2023 Note Formatting of this n ote might be different from the original. Went into pt room to assist them. Pt and had questions about their infusion and antibiotic and said they would like to speak with the CIVIL ENGINEERING PROJECT DESIGNER that was in here before . This RN messaged Infectious Disease team. Team was willing to come answer pts questions when available. Pt and family not willing to wait to speak with team. RN educated, and encouraged pt to wait and speak with Infectious Disease team. Pt still wanting to leave. ID team informed. [facility] 01-02-2023 Note Formatting of this n ote might be different from the original. Problem: Patient Care Overview Goal: Plan of Care Review Outcome: Adequate for Discharge Goal: Individualization & Mutuality Outcome: Adequate for Discharge Goal: Discharge Needs Assessment Outcome: Adequate for Discharge Goal: Interdisciplinary Rounds/Family Conf Outcome: Adequate for Discharge Problem: Pain, Acute (Adult) Goal: Identify Related Risk Factors and Signs and Symptoms Description: Related risk factors and signs and symptoms are identified upon initiation of Human Response Clinical Practice Guideline (CPG) Outcome: Adequate for Discharge Goal: Acceptable Pain Control/Comfort Level Description: Patient will demonstrate the desired outcomes by discharge/transition of care. Outcome: Adequate for Discharge Problem: Dysphagia (Adult) Goal: Identify Related Risk Factors and Signs and Symptoms Description: Related risk factors and signs and symptoms are identified upon initiation of Human Response Clinical Practice Guideline (CPG) Outcome: Adequate for Discharge Goal: Functional/Safe Swallow Description: Patient will demonstrate the desired outcomes by discharge/transition of care. Outcome: Adequate for Discharge Goal: Compensatory Techniques to Improve Safety/Function with Swallowing Description: Patient will demonstrate the desired outcomes by discharge/transition of care. Outcome: Adequate for Discharge [facility] 01-02-2023 Note Formatting of this n ote might be different from the original. Faxed MILLI, AVS, and Facesheet to [facility] and [facility]. Called [facility] and spoke with Darlene. All questions were answered. Message left for Aprina at [facility], call back number provided. Discharge paper work was discussed and reviewed with patient. Patient aware of new scripts to get filled, medications to continue, as well as medications to stop taking. Patient made aware of signs and symptoms of infection following surgery, wound care, and precautions related to their surgery. Pt aware of when to seek emergency help/care. All questions were answered. PICC line education added to AVS. PIV removed. Pt to discharge to home. [facility] 01-02-2023 History of Present illness Narrative INFECTIOUS DISEASE FOLLOW-UP NOTE Admit Date: 12/30/2022 Date of Evaluation: 31:39 PM [facility] LOS: 3 days S: Afebrile and hemodynamically stable overnight. Patient rates pain 3/10 scale. No fevers or chills. Denies chest pain, dyspnea, nausea, vomiting, constipation and diarrhea. Appetite is good. Current Medications: Acetaminophen 650 mg Oral Q6H Ascorbic acid 250 mg Oral BID baclofen 20 mg Oral QAM cefazolin IV infusion 3 g Intravenous Q12HNS cholecalciferol 800 Units Oral Daily Docusate 100 mg Oral BID enoxaparin 40 mg Subcutaneous Daily Folic acid 1 mg Oral Daily Or Folic acid 1 mg Per NG tube Daily Or Folic acid 1 mg Intravenous Daily Gabapentin 100 mg Oral TID Lisinopril 2.5 mg Oral QAM Multi-Vitamins 1 tablet Per NG tube Daily Or Multi-Vitamins 1 tablet Oral Daily Naproxen 500 mg Oral BID rOPINIRole 2 mg Oral BID Thiamine 100 mg Oral Q8H Or Thiamine 100 mg Per NG tube Q8H Or thiamine (B-1) injection 100 mg Intravenous Q8H [START ON 01/04/2023] Thiamine 100 mg Oral Daily traZODone 100 mg Oral QHS PHYSICAL EXAM: Temp: [97.2 F (36.2 C)-97.9 F (36.6 C)] 97.2 F (36.2 C) Pulse (Heart Rate): [61-73] 73 Resp Rate: [16-18] 16 BP: (123-158)/(58-69) 145/60 O2 Sat (%): [94 %-97 %] 97 % Weight: [73.5 kg (162 lb 0.6 oz)] 73.5 kg (162 lb 0.6 oz) Vitals: BP 145/60 (BP Location: Left arm, BP Position: Lying) Pulse 73 Temp 97.2 F (36.2 C) (Oral) Resp 16 Ht 1.702 m (5' 7.01 ) Wt 73.5 kg (162 lb 0.6 oz) SpO2 97% BMI 25.37 kg/m Smoking Status Never General: The patient is a well-developed, well-nourished in no apparent distress. Lungs: Good air entry and respiratory effort bilaterally, clear to auscultation with no wheezes, rhonchi or rales noted. Heart: Murmur Abdomen: Soft, nontender, and nondistended. Normo-active bowel sounds. Extremities: LLE dressing D&I Neurologic: No focal deficits appreciated on gross motor exam. Alert and oriented x3. Skin: No ulceration or induration present. No rash noted on exposed skin. Psych: Pleasant mood with appropriate affect Patient Lines/Drains/Airways Status Active Lines, Drains, Airways, & Wound Overview Name Placement date Placement time Site Days PICC Line - Single Lumen 01/02/23 1219 basilic vein (medial side of arm), left 4 Fr 01/02/23 1219 -- less than 1 Peripheral IV Line - Single Lumen 12/31/22 1216 forearm, anterior, right 22 gauge 12/31/22 1216 -- 2 Wound Incision 12/30/22 1552 Anterior;Left Ankle 12/30/22 1552 Ankle 2 Wound Incision 12/30/22 1624 Anterior;Left Ankle 12/30/22 1624 Ankle 2 LABS: WBC/Hgb/Hct/Plts: 6.79/12.0/36.6/233 (01/02 325) Bun/Creat/Cl/CO2/Glucose: 16/0.82/106/26/81 (01/02 325) Estimated Creatinine Clearance: 81 mL/min (by C-G formula based on SCr of 0.82 mg/dL). Lab Results Component Value Date SEDRATE 20 (H) 12/30/2022 Lab Results Component Value Date CRP 2.12 12/30/2022 MICRO and Other Significant ID Labs: 12/30/22 Operative cultures - NGTD 12/31/22 Blood cx: NGTD Outside Micro: 06/24/22 Bursa and ankle Cx - MSSA 06/24 Bld Cx - MSSA 08/09 Bld Cx - Micrococcus 11/25/22 Ankle Cx - MSSA IMAGING: ECHOCARDIOGRAM Final Result US IMAGING OR Final Result ASSESSMENT: Preston Carrasquillo is a 67 y.o. male with daily ETOH use, HTN, HLD, restless leg syndrome, chronic low back pain s/p spinal cord stimulator placement (07/13/21) and prior left ankle septic arthritis due to MSSA with prior MSSA bacteremia who is admitted after undergoing L ankle debridement and placement of antibiotics spacer on 12/30. 1. L ankle septic arthritis and osteomyelitis due to MSSA - Symptoms started in Jun after he underwent an injection procedure. Had 2 prior debridements which both grew MSSA and now s/p L ankle debridement and placement of antibiotics spacer on 12/30, operative cultures pending. 2. H/o MSSA bacteremia - had MSSA bacteremia in Jun 2022 that was treated with PO doxy x 4 weeks. Noted to have heart murmur on exam but no other symptoms 3. Chronic back pain with spinal cord stimulator 4. Estimated Creatinine Clearance: 107 mL/min (A) (by C-G formula based on SCr of 0.62 mg/dL (L)). RECOMMENDATIONS: Patient will need 6 weeks of Cefazolin IVPB. See OPAT Note for final recommendations. Please contact ID Team [facility] (6) consult service if you have any questions. We will sign off. ATTENDING: Dr. Anand Mendoza MS, OUTSOLE COMPRESSOR, EQUITY DIRECTOR-C Nurse Practitioner Pager [phone] Infectious Diseases For urgent calls after hours or during the weekend, please page IM Consult Service Infectious Diseases on Web exchange Overnight and on weekends please page the on-call pager if questions arise [phone] Associated attestation - Anand Santos MD - 01/02/2023 7:53 PM EST Patient independently seen and examined, I repeated core history and physical examination components, and directly guided medical decision making for today's visit. Findings and plans reviewed and discussed with Barbie Mendoza MS, OUTSOLE COMPRESSOR, EQUITY DIRECTOR-C as documented. We can clinically doing fine today. Exam is largely unremarkable with clear lungs, regular rate with no murmur, and no abdominal tenderness. He has tolerated cefazolin without issues. I discussed plan of care with him in detail. Later in the afternoon received word from nursing staff the patient and had many questions about antibiotic plans so I went back and discuss with them further. Based on review, it is concerning the patient has likely had chronic osteomyelitis of the bones around the ankle for quite some time including at time of prior debridements with relatively short courses of antibiotic treatment. Patient and his were very confused by this so we again discussed that based on prior findings and operative findings from this admission that treatment for osteomyelitis would be the best path forward. Their questions and concerns were answered and addressed. Plan for 6 weeks of cefazolin for treatment of prior isolated MSSA from this region. If he is doing well he should not require further antibiotic therapy after that time. Signing off for now. Call anytime with questions or concerns. Anand Santos MD Division of Infectious Diseases Images from the original note were not included. Acute Physical Therapy Joint Treatment Prior to Admission [facility] score(s): PRIOR LEVEL AM-PAC Mobility Raw Score: 24 Current AM-PAC score(s): CURRENT AM-PAC Mobility Raw Score: 17 Based on the above AM-PAC score(s) and PT clinical judgment, patient is a good candidate for discharge to Home Barriers to discharge home: Patient unable to navigate stairs to enter home Mobility equipment available at home: axillary crutches, 2 wheeled walker, manual wheelchair, straight cane ADL equipment available at home: elevated toilet seat, grab bars, shower bench Equipment needed for discharge: none Current therapy frequency recommendation in acute: Therapy Frequency: 3 times a week Precautions and Weightbearing Status: Patient Safety Communication Prior to Visit: Nursing, Rehab team Existing Precautions/Restrictions: weight bearing, fall Left Lower Extremity: non-weight bearing (WBAT as needed for transfers-per orders) Bathroom Privileges with staff - GAURI VELASQUEZ. Subjective: Patient very aware of his WB status and says he will maintain TDWB until approved to upgrade by Dr. Moreira. Pain: General Pain Documentation (Adult, OB, Peds) Presence of Pain: non-verbal indicator of pain/discomfort not present Assessment: Patient has been up with staff this morning. He declined getting up again at this time. Home Setup/Prior Level of Function: Home Setting Residence: House Lives With: spouse First floor setup: walk-in shower Number of stairs to enter home: 3 Number of stairs in home: 0 Stair Railings at Home: entry - with rail Mobility Equipment Available: axillary crutches, 2 wheeled walker, manual wheelchair, straight cane ADL Equipment Available: elevated toilet seat, grab bars, shower bench Previous Level of Function Bed Mobility/Transfers: independent Ambulation Skills: independent Assistive Device: none used Level of Ambulation: community Objective/Observation: Past Medical History: Diagnosis Date Ankle joint pain Essential hypertension, benign Flat foot Hernia, umbilical Hyperlipidemia Ingrown toenail Low back pain Male erectile dysfunction Pain in left shoulder Pain in right shoulder Pityriasis versicolor RLS (restless legs syndrome) Past Surgical History: Procedure Laterality Date ARTHROSCOPY ANKLE W/ DEBRIDEMENT Left 12/30/2022 Laterality: Left; Surgeon: Cristopher Moreira MD; Location: [facility] MA[facility] OR I&D BONE CORTEX ANKLE LEG Left 12/30/2022 Laterality: Left; Surgeon: Cristopher Moreira MD; Location: [facility] MA[facility] OR INSERTION IMPLANT NONBIODEGRADABLE DRUG DELIVERY Left 12/30/2022 Laterality: Left; Surgeon: Cristopher Moreira MD; Location: [facility] OR ARTHROSCOPY SUBTALAR JOINT W/ DEBRIDEMENT Left 12/30/2022 Laterality: Left; Surgeon: Cristopher Moreira MD; Location: [facility] OR INSERTION NEUROSTIMULATOR ELECTRODE SPINAL PERCUTANEOUS N/A 07/13/2021 Laterality: N/A; Surgeon: Tyrell Weinberg DO; Location: [facility] OR INSERTION REPLACEMENT NEUROSTIMULATOR GENERATOR SPINAL N/A 07/13/2021 Laterality: N/A; Surgeon: Tyrell Weinberg DO; Location: [facility] OR ANALYSIS/PROGRAMMING NEUROSTIMULATOR GENERATOR SYSTEM N/A 07/13/2021 Laterality: N/A; Surgeon: Tyrell Weinberg DO; Location: [facility] OR ARTHROSCOPY SHOULDER W/ ROTATOR CUFF REPAIR Left 10/27/2017 Laterality: Left; Surgeon: Majo Phan MD; Location: [facility] PERIOP ARTHROSCOPY SHOULDER W/ SUBACROMIAL DECOMPRESSION/ACROMIOPLASTY ADD-ON Left 10/27/2017 Laterality: Left; Surgeon: Majo Phan MD; Location: [facility] ARTHROSCOPY SHOULDER W/ DEBRIDEMENT Left 10/27/2017 Laterality: Left; Surgeon: Majo Phan MD; Location: [facility] PERIOP HERNIA REPAIR Vitals/ Responses to Treatment: No vitals taken, no adverse response noted during PT session Cognition Overall Cognitive Status: Within Functional Limits Following Commands: Follows all commands and directions without difficulty Deficits: Fully aware of deficits Cognition Comments: very aware of TDWB status. [facility] Score: CURRENT [facility] Basic Mobility Inpatient Short Form Turning over in bed: 4 - No Assistance Sitting/standing from chair: 3 - A Little Assistance Moving from lying on back to sittin - A Little Assistance Moving to and from bed to chair: 3 - A Little Assistance Walk in hospital room: 3 - A Little Assistance Climbing 3-5 steps with a railin - Total Assistance CURRENT [facility] Mobility Raw Score: 17 CURRENT [facility] Mobility Functional Limitation/Modifier: 50.57% Currently Impaired in Basic Mobility - CK Interventions/Education: Reviewed the importance of maintaining strict TDWB until increased by Dr. Moreira. Talked with the patient about his home situation. He stated he has been dealing with this foot for a while. He said he has a W/C at home that he will use for his main source of mobility. Explained the probable results if he were to go home and begin amb on the F foot before he is allowed. He said he fully understands the consequences and will follow the doctors orders.. Patient Instruction/Education this session: Encouraged the patient to monitor Edema closely. Patient provided with Home Exercise Program: No Plan: Plan for next session: patient may be discharged home later today per patient. PT Treatment Care Plan & Goals (Active) Ortho - Goals Ortho - Sit to Stand Description: Pt will perform sit to/from stand transfer with no greater than sup assist with wheeled walker for improved ability to safely discharge to next level of care. Outcomes Date/Time User Outcome 01/02/23 1306 Abbey Steel PTA Ongoing Ortho - Ambulate 100 ft Description: Pt will ambulate 100 feet with stand by assist with wheeled walker NWBing or WBing as ordered to promote home navigation. Outcomes Date/Time User Outcome 01/02/23 1306 Abbey Steel PTA Ongoing Ortho - Knee ROM Description: Pt will demonstrate independence with donning/doffing the boot on the L LE Outcomes Date/Time User Outcome 01/02/23 1306 Abbey Steel PTA Ongoing Treating Clinician: Abbey Steel PTA Additional Details: I used facemask, protective eye shield, and gloves in today's patient interaction. Time In: 1046 Time Out: 1056 Total Visit Time: 10 minutes Total Treatment Time (skilled, billable minutes): 10 minutes Treatment consisted of Home Management Retraining to work and progress toward above goals. Patient location at end of session: bed with head of bed elevated Patient Safety Measures at end of session: none Needs in reach. Upon discontinuation of Acute Care Physical Therapy Services or patient discharge from the hospital this note represents the current Physical Therapy Discharge Summary. Patient and/or appropriate family member(s) and decision makers were given a list of appropriate level of care agencies and facilities that would meet the needs of the patient. The list contained agencies and facilities that are appropriate options for the patient with regards to what is available through their insurance options. [facility] and [facility] chosen by pt. Agency reserved. Please call report and fax signed HHC order, [place] [facility] is not open today due to the holiday, therefore [facility] is unable to obtain authorization for HHC/infusion services. [facility] informed pt and pt is insisting that he be discharged today. He states he will use his Medicare benefits instead of his VA benefits. [facility] informed [facility] reps/nurses. Cost for infusion services through Medicare is $204 per week. Pt is agreeable to this cost and states he will try to get the [facility] to reimburse him. Pt was informed that it will take 5-6 hours for [facility] pharmacy to have cefazolin available for continuous hookup. Pt is adamant that he is leaving at 1 PM and will not be staying for the drug to be delivered here to the hospital. Therefore, [facility] will deliver the drug to the pt's address and the [facility] rep/nurse will provide education to pt so that pt can hook himself up at home later today. [facility] will see pt tomorrow. Queenie HUGO informed. 01/02/23 1244 Final Discharge Planning Discharge Disposition Home with Infusion Services at Discharge Outpatient infusion/line care;Retirement CM/SW AVS Portion Completed Yes Community Agency Name(s) For Handoff [facility], an [employer] - [place], [place] Phone For Handoff Fax For Handoff Additional Community Agency Name(s) yes [facility] Agency Community Agency Name For Handoff [facility] Phone For Handoff Fax For Handoff Plan Plan dc home with infusion services Patient/Family In Agreement With Plan yes ORTHOPEDIC SURGERY PROGRESS NOTE POD #3 -- s/p arthroscopic I&D of L ankle and subtalar joint with placement of stimulan No acute events overnight. Patient overall doing well; reporting controlled pain on current regimen. Denies chest pain, shortness of breath, nausea/vomiting. Echo completed. Plan of care discussed with patient; all questions and concerns addressed at this time. Vitals: 01/02/23 1100 BP: 145/60 Pulse: 73 Resp: 16 Temp: 97.2 F (36.2 C) WBC/Hgb/Hct/Plts: 6.79/12.0/36.6/233 (01/02 325) Na/K+/Phos/Mg/Ca: 137/3.9/--/--/-- (01/02 325) PHYSICAL EXAM: Alert, oriented x 3, fluent speech Musculoskeletal exam: LLE Zbigniew wrap/dressing C/D/I, CAM boot at bedside No calf tenderness present Sensation intact to light touch Wiggles toes, moves ankles. Brisk capillary reflex A/P: Patient is POD #3 from arthroscopic I&D of L ankle and subtalar joint with placement of stimulan 1. Physical Therapy- progressing well, cleared for discharge from PT perspective 2. Weight Bearing Status: NWB LLE, ok to WB in CAM boot for transfers 3. Diet - ADAT 4. Pain regimen - PO analgesics PRN 5. DVT Prophylaxis - Lovenox 40mg daily while inpatient, transition to Asa 81mg BID at discharge 6. Dressing- Daily dry dressing changes per RN 7. Antibiotics- Intra-op cultures show NGTD.Cefazolin 3 gm every 12 hours as a continuous infusion x 6 weeks (end date 02/10/2023) per final ID recommendations. PICC placed today. 8. Medical issues addressed: Acute blood loss anemia: -Pre-op hgb 14 mg/dL, post-op hgb 11.9 mg/dL post-op -patient asymptomatic ETOH use -reports drinking 5 drinks per day -MAT consulted - patient politely declined -CIWA precautions ordered -thiamine and folic acid ordered Planned Discharge Date: TBD pending insurance approval for IV antibiotics Discharge Plan: Home w/ [facility] (+ infusion services) Addendum 1255: Patient requesting to discharge at 1300. [facility] infusion liason at bedside to discuss IV antibiotic with patient. The patient is unwilling to remain in the hospital for delivery of his antibiotic which would allow [facility] liaisons to cupola melter helper continuous antibiotic prior to discharge. He is agreeable however to learn how to cupola melter helper continuous antibiotic infusion. [facility] liaisons will provide education and arrange for antibiotics to be delivered to patients home this evening. Home health care has been arranged and will start services on 01/03/2023. In compliance with the laws of the State Medical/Nursing Board of [place], the following conditions have been met for extending the dose or duration of opioid pain medication for the treatment of acute pain. DIAGNOSIS: Left ankle chronic osteomyelitis Pain following surgery or procedure (ICD10 G89.18) DURATION 7 day limit exceeded due to pain that is expected to persist longer than 7 days. Pathology of pain: Infection AND/OR DOSE 30 MED average exceeded due to: Major Orthopedic Surgery Reason for exceeding the 30 MED average: Pain after orthopedic surgery not yet acceptably controlled by non-opioid medication. This is the lowest dose need for his medical condition. He has been advised of the benefits and risks of narcotics, including the potential for addiction. His account was reviewed on the [place] Automated Rx Reporting System: [employer] e[employer]. The controlled substance medication history was found to be aligned with his health and medication history. He has had no adverse outcomes with this medication. Queenie BERMUDEZ Certified Nurse Practitioner- Orthopedic Surgery Outpatient Parenteral Antibiotic Therapy (OPAT): For patients who will be discharged on parenteral (IV) antibiotic therapy, please utilize the OPAT discharge orderset. For patients who are on oral antibiotic therapy, utilization of this orderset is not necessary. Diagnosis: 1. Left ankle osteomyelitis Antibiotic(s) with dose: The dosing of these antibiotics is based on today's PK/PD calculations and is subject to change. Please evaluate the patient's medication list and carefully verify their dosing, and infusion rate prior to discharge. Do not hesitate to call the on-call ID Team with any questions. - Cefazolin 3 gm every 12 hour as a continuous infusion Duration of Therapy: Total Duration of therapy: 6 weeks Cefazolin: 12/31/2022 - Start Date:; Stop Date: 02/10/2023 Does Patient Need Oral Antibiotic Therapy at the End of Parenteral Therapy: No OPAT ID Providers: Dr. Zenaida Street or BETHEL Mendoza Labs: Please have the Home Care Company or Extended Care Facility obtain weekly Chem-6 (Including serum creatinine) without Glucose and CBC w/diff every Monday and fax to [phone], attention Dr. Zenaida Street or BETHEL Mendoza Imaging: No Follow-up: Yes - patient should follow-up either via telemedicine/video visit ID Clinic (Please ensure patient is enrolled in [facility] prior to discharge in order for Virtual Visits to be performed) Prior to discharge, please call [phone] (hospital follow-up line only) to schedule an appointment with the provider listed above. If the patient is being discharged to a Long[facility] ([facility]), we will defer ID Care to the [facility] Disease [facility]. Please instruct the facility that if the patient requires ID Follow-up after discharge, then they should call our office to arrange for an appointment. Central Access: Can Central Access be removed at the end of therapy: Yes Additional notes Will arrange telephone visit for 02/09/2023. Barbie Mendoza, GRUPO-PHYSICAL MEDICINE SPECIALIST Discharge Planning Patient Assessment Admission Assessment Patient Assessment Completed: Initial Anticipated discharge disposition: Home with Infusion Reason for Admission: s/p L ankle I&D Is the patient able to participate in the assessment?: Yes Information source: Patient, Review of Medical Record Demographics Verified and Updated: Yes Has the patient been admitted to any hospital in the last 30 days?: No Advanced Care Planning Has the patient completed Advance Directives?: Not Completed Referral to Social Work for Advance Care Planning? : Patient Declines Legal Next of Kin Does the patient have a Guardian?: No Spouse: Yes Name and Contact information: Lucretia Carrasquillo Referral to Social Work to Identify Legal Next of Kin?: No Reviewed and Updated in Demographics? : Yes Outpatient Providers Does patient have a primary care physician? : Yes When was the patient's last PCP visit?: > 30 days Does the patient follow any specialists?: Yes Reviewed and updated Care Team?: Yes Patient Care Team: Other [facility] - Valentina as PCP - General (Other) Environment/Caregivers Is the patient from a facility or assisted?: No Patient lives with: Spouse or Partner How many steps does the patient have to navigate to enter or inside the home? : 3 deejay Does the patient have a first floor set-up with bed and bathroom?: Yes Patient Caregiving Responsibilities: Self Patient-identified caregiver/support network: Family Who does the patient identify as a teachable caregiver(s)?: Spouse or Partner Services Does the patient use a home health or hospice agency?: No Current with dialysis?: No Does the patient use any community programs or services?: No Does patient use DME? : walker, wheelchair, elevated toilet seat, shower seat, straight cane, crutches, grab bars Would you like to add additional DME providers?: No Does the patient use oxygen?: No Does patient use medical supplies? : none Anticipated Changes Related to Illness/Injury? : Yes Inability to care for self?: Yes Initial ADLs Prior to Arrival What is the patient's baseline physical functioning prior to this acute illness?: independent What is the patient's baseline cognitive functioning prior to this acute illness?: independent Is the patient's baseline functioning changed by this acute illness? : Yes Changes observed : Physical Concerns with patient being able to care for themselves at home? : No Are there therapy or specialists consults?: Yes Select consult type: PT, OT Does the patient's home require any home modifications for discharge? : No CM to recommend therapy or other consults? : No Medication Management Does the patient have prescription insurance coverage? : Yes Is the patient on Anticoagulation? : Yes Provider or Clinic that manages Anticoagulation?: Ortho [id number] [place] [address] - [address] [id number] [employer] Does the patient or licensing representative express financial concerns? : No Coping/Stress Concerns about patient s coping and stress?: No Initial Discharge Planning Anticipated discharge disposition: Home with Infusion Transportation Available for Discharge: Family or Friend Anticipated DME: none Anticipated Services at Discharge: Outpatient infusion/line care, Retirement Patient Assessment Completed: Initial Risk of Readmission: 3.1 Category Reference: High:16-100 Mod-High:10-16 Mod-Low: 5-10 Low: 0-5 Expected Discharge Date: 01/02/2023 Discharge Planning Summary Chart reviewed. Pt interviewed. Pt lives in a house with his , has 3 deejay. Pt is independent with ADLs at baseline, has a walker, wheelchair, crutches, cane, shower bench, raised toilet seat, and grab bars. Pt plans to dc home with HHC/infusion services. Family to transport at dc. LNOK: spouse Lucretia Carrasquillo Insurance: [facility] PCP: [facility] Case Management Plan HHC and home infusion referrals sent. CCM left for [place] Community Printing Technician requesting auth for services. Awaiting call back. CCM will follow up. Pt has Ortho follow up appt on 01/12. Orthopaedic Surgery Progress Note Prestonroverto Carrasquillo is a 67 y.o. male who is status post arthroscopic I&D of L ankle and subtalar joint with placement of stimulan on 12/30/[address] Moreira Last 24 Hours No acute events overnight. Afebrile with stable vital signs. Reports pain has improved significantly. Mobilized well with therapy in his boot, cleared for home. Discussed importance of obtaining echo to determine final discharge plan. Vitals Temp: [97.3 F (36.3 C)-98.1 F (36.7 C)] 97.3 F (36.3 C) Pulse (Heart Rate): [60-73] 61 Resp Rate: [16-18] 18 BP: (123-158)/(58-73) 158/67 O2 Sat (%): [94 %-96 %] 95 % Oxygen Therapy O2 Sat (%): 95 % O2 Device: room air Fluid Management (24hrs): Intake/Output last 3 shifts: I/O last 3 completed shifts: In: 1147 [P.O.:500; IV Piggyback:647] Out: 1320 [Urine:1300; Other:20] WBC/Hgb/Hct/Plts: 6.79/12.0/36.6/233 (01/02 0325) Physical Exam GEN - NAD, AAOx3 HEENT - NCAT, EOMI, supple neck, no lymphadenopathy CHEST - Equal chest rise, nonlabored breathing ABDOMEN - Soft, nontender EXT - LLE: Dressings are clean, dry and intact. Sensation intact in SP, DP, sural and saphenous nerve distributions. Intact TA/GSC/EHL/FHL. Able to wiggle toes. Foot is warm and well perfused. Laboratory Studies and Imaging WBC/Hgb/Hct/Plts: 6.79/12.0/36.6/233 (01/02 0325) Imaging Personally Reviewed: TTE Pending Drain: Removed Operative Cultures (12/30/22): NGTD Blood Cultures (12/31/22): NGTD Assessment Preston Carrasquillo is a 67 y.o. male who is status post arthroscopic I&D of L ankle and subtalar joint with placement of stimulan on 12/30/[address] Moreira Plan Activity: PT/OT, CAM boot to the LLE Weight Bearing Status: NWB LLE, okay to WB for transfers Pain: Multimodal, PO PRN Diet: Advance as tolerated Abx: Ancef per ID, continue to tailor pending culture results and echo result Cultures: FU operative cultures, currently NGTD. Blood cultures NGTD DVT PPx: SCD's, LVX while inpatient Dressing: Daily dry dressing changes per bedside RN Drain: Removed Imaging: TTE pending Disposition: Pending final ID recommendations. Follow-Up: Return to clinic in [address] Moreira for a wound check. Please contact the Orthopaedic Surgery resident field artillery fire control man with any questions. Damaso Dill MD Orthopaedic Surgery Images from the original note were not included. Acute Physical Therapy Joint Evaluation Prior to Admission [facility] score(s): PRIOR LEVEL AM-PAC Mobility Raw Score: 24 Current AM-PAC score(s): CURRENT AM-PAC Mobility Raw Score: 16 Based on the above AM-PAC score(s) and PT clinical judgment, patient is a good candidate for discharge to Home Barriers to discharge home: Patient unable to navigate stairs to enter home Mobility equipment available at home: axillary crutches, 2 wheeled walker, manual wheelchair, straight cane ADL equipment available at home: elevated toilet seat, grab bars, shower bench Equipment needed for discharge: none Current therapy frequency recommendation in acute: Therapy Frequency: 3 times a week Precautions and Weightbearing Status: Patient Safety Communication Prior to Visit: Nursing Existing Precautions/Restrictions: weight bearing, fall Left Lower Extremity: non-weight bearing (WBAT as needed for transfers-per orders) Secure chat sent to resident for permission to walk TDWBing with boot in place. Resident gave permission and will update the WBing orders. Bathroom Privileges with staff TDWBING with WW Subjective: I want to walk in the halls Pain: General Pain Documentation (Adult, OB, Peds) Presence of Pain: complains of pain/discomfort Pain Location: ankle, left Home Setting Residence: House Lives With: spouse First floor setup: walk-in shower Number of stairs to enter home: 3 Number of stairs in home: 0 Stair Railings at Home: entry - with rail Mobility Equipment Available: axillary crutches, 2 wheeled walker, manual wheelchair, straight cane ADL Equipment Available: elevated toilet seat, grab bars, shower bench Previous Level of Function Bed Mobility/Transfers: independent Ambulation Skills: independent Assistive Device: none used Level of Ambulation: community Objective/Observation: Vitals/Responses to Treatment: No vitals taken, no adverse response noted during PT session Cognition Overall Cognitive Status: Within Functional Limits Arousal/Alertness: Appropriate responses to stimuli Orientation Level: Oriented X4 Extremity Assessments: Balance: Sitting Balance Static Sitting-Level of Assistance: Independent Dynamic Sitting-Level of Assistance: Independent Standing Balance Static Standing-Level of Assistance: Stand-by assist Dynamic Standing-Level of Assistance: Stand-by assist Standing-Balance Support: 2 wheeled walker Mobility Assessment: Rolling/Turning Mobility [place] Level: Rolling/Turning: modified independence Scooting Bridging Mobility [place] Level: Scooting/Bridging: modified independence Supine to Sit Mobility [place] Level: Supine->Sit: contact guard assist Bed Features/Set-up: Supine->Sit: Head of bed elevated, Use of bed rail Skilled Rationale: Verbal cues, Technique of activity, Initiation and execution of task Transfer Assessment: Sit to Stand Transfer [place] Level: Sit->Stand: contact guard assist Assistive Device: Sit->Stand: 2 wheeled walker Skilled Rationale: Verbal cues, Technique of activity, Initiation and execution of task, Maintain precautions Stand to Sit Transfer [place] Level: Stand->Sit: contact guard assist Assistive Device: Stand->Sit: 2 wheeled walker Skilled Rationale: Verbal cues, Technique of activity, Initiation and execution of task, Maintain precautions Bed-Chair Transfer [place] Level: Bed<->Chair: contact guard assist Assistive Device: Bed<->Chair: 2 wheeled walker Skilled Rationale: Verbal cues, Maintain precautions Gait: Gait Assessment [place] Level: Gait: contact guard assist Assistive Device: Gait: 2 wheeled walker Ambulation Distance (Feet): 80 Gait Deviations Identified: decreased jeannie, decreased gait speed, decreased step length Gait Skilled Rationale: verbal Skilled Intervention/Details - Gait: Cues for WBing compliance - the pt walks TDWBing instead of NWBing This pt was seen for skilled gait training to educate and to improve on consistency, technique and safety with use of the assistive device. Stairs: Stairs Assessment [place] Level: Stair Negotiation: not tested Per the pt, his kids will carry him up the stairs in his WC - they have experience with this. [facility] Score: CURRENT -[facility] Basic Mobility Inpatient Short Form Turning over in bed: 3 - A Little Assistance Sitting/standing from chair: 3 - A Little Assistance Moving from lying on back to sittin - A Little Assistance Moving to and from bed to chair: 3 - A Little Assistance Walk in hospital room: 3 - A Little Assistance Climbing 3-5 steps with a railin - Total Assistance CURRENT [facility] Mobility Raw Score: 16 CURRENT [facility] Mobility Functional Limitation/Modifier: 54.16% Currently Impaired in Basic Mobility - [place] Interventions: Intervention 1 Intervention Name: Education Pt educated on the role of PT and the dangers of bedrest. The pt was also coached to start eating meals in the chair or at the EOB, with staff supervision. The pt expressed understanding. Patient provided with Home Exercise Program: No Patient Education: see abve Assessment & Plan: This pt will be seen for decreased safe functional mobility. PT will also work on DC planning and any appropriate education. Preston Carrasquillo is a 67 y.o. male who is status post arthroscopic I&D of L ankle and subtalar joint with placement of stimulan on 12/30/[address] Moreira. He tolerated gait will but was TDWBing in the heavy boot. Orders were changed to TDWBing by the resident. PT will see the pt 1-2 more times to advance gait as able. RN and Monday PT treatment team were included in the secure chat to the resident re WBing change. Exam findings include Gait/Locomotion. These impairments contribute to functional limitations including Ambulation/locomotion pain, Decreased ambulation distance/endurance, Increased fall risk. Current clinical presentation is Evolving - changing/inconsistent clinical characteristics (Moderate). Patient history factors impacting Plan Of Care include none. Patient will benefit from skilled physical therapy to address these impairments, functional limitations, and participation restrictions and has good rehab potential to achieve therapy goals. Planned Therapy Interventions: gait training Plan for next session: Extend gait as able PT Eval Care Plan & Goals (Active) Ortho - Goals Dates: Start: 01/01/23 Ortho - Sit to Stand Dates: Start: 01/01/23 Expected End: 01/10/23 Description: Pt will perform sit to/from stand transfer with no greater than sup assist with wheeled walker for improved ability to safely discharge to next level of care. Ortho - Ambulate 100 ft Dates: Start: 01/01/23 Expected End: 01/10/23 Description: Pt will ambulate 100 feet with stand by assist with wheeled walker NWBing or WBing as ordered to promote home navigation. Ortho - Knee ROM Dates: Start: 01/01/23 Expected End: 01/10/23 Description: Pt will demonstrate independence with donning/doffing the boot on the L LE Evaluating Therapist: Janet Lim PT Additional Details: Co-evaluation/co-treatment performed?: No simultaneous skilled care performed I used gloves and facemask in today's patient interaction. Evaluation Complexity Components History: High (3 personal factors and/or comorbidities) Body Systems Review: Moderate (Addressing a total of 3 or more elements) Clinical Presentation: Evolving - changing/inconsistent clinical characteristics (Moderate) Clinical Decision Making: Moderate Time In: 1120 Time Out: 1154 Total Visit Time: 34 minutes Total Treatment Time (skilled, billable minutes): 24 minutes Treatment consisted of Gait/Stair Training to work and progress toward above goals. Patient location at end of session: chair Alarms on at end of session: none and RN aware Needs in reach. Upon discontinuation of Acute Care Physical Therapy Services or patient discharge from the hospital this note represents the current Physical Therapy Discharge Summary. Occupational Therapy Screen Note 01/01/2023 OT Therapy Completed: Screen OT order received and chart review completed. Patient completed PT evaluation. Per patient and PT, patient does not have skilled acute occupational therapy needs a this time. Patient has all ADL equipment from previous surgeries and admissions, and has his to assist as needed. No skilled occupational therapy is warranted at this time. patient to be discharged from OT services at this time. Please re-consult if changes or concerns arise. DIMITRIS Martin, OTR/L Time In: 1205 Time Out: 1206 Total Visit Time: 1 minutes Total Treatment Time (skilled, billable minutes): 0 minutes Orthopaedic Surgery Progress Note Preston Carrasquillo is a 67 y.o. male who is status post arthroscopic I&D of L ankle and subtalar joint with placement of stimulan on 12/30/[address] Moreira Last 24 Hours No acute events overnight. Afebrile with stable vital signs. Declined evaluation by addiction medicine. Also declined PT/OT due to lack of sensation/motor in his foot due to the block. Has yet to mobilize. Voiding spontaneously. He has no acute concerns at this time. Would like to work with therapy today if able. Vitals Temp: [97.2 F (36.2 C)-97.9 F (36.6 C)] 97.3 F (36.3 C) Pulse (Heart Rate): [61-74] 70 Resp Rate: [16-18] 17 BP: (118-153)/(65-81) 153/70 O2 Sat (%): [93 %-96 %] 96 % Oxygen Therapy O2 Sat (%): 96 % O2 Device: room air Fluid Management (24hrs): Intake/Output last 3 shifts: I/O last 3 completed shifts: In: 1430 [P.O.:1430] Out: 880 [Urine:850; Other:30] WBC/Hgb/Hct/Plts: 8.95/11.9/36.0/248 (01/01 406) Na/K+/Phos/Mg/Ca: 135/4.2/--/--/-- (01/01 406) Bun/Creat/Cl/CO2/Glucose: 14/0.86/105/25/85 (01/01 406) Physical Exam GEN - NAD, AAOx3 HEENT - NCAT, EOMI, supple neck, no lymphadenopathy CHEST - Equal chest rise, nonlabored breathing ABDOMEN - Soft, nontender EXT - LLE: Incisions are well approximated without surrounding erythema or drainage. Sensation intact in SP, DP, sural and saphenous nerve distributions. Intact TA/GSC/EHL/FHL. Able to wiggle toes. Foot is warm and well perfused. Drain removed. Laboratory Studies and Imaging WBC/Hgb/Hct/Plts: 8.95/11.9/36.0/248 (01/01 406) Na/K+/Phos/Mg/Ca: 135/4.2/--/--/-- (01/01 406) Bun/Creat/Cl/CO2/Glucose: 14/0.86/105/25/85 (01/01 406) Imaging Personally Reviewed: TTE Pending Drain: (Removed) Operative Cultures (12/30/22): NGTD Blood Cultures (12/31/22): Pending Assessment Preston Carrasquillo is a 67 y.o. male who is status post arthroscopic I&D of L ankle and subtalar joint with placement of stimulan on 12/30/[address] Moreira Plan Activity: PT/OT, CAM boot to the LLE Weight Bearing Status: NWB LLE, okay to WB for transfers Pain: Multimodal, PO PRN Diet: Advance as tolerated Abx: Ancef per ID, continue to tailor pending culture results Cultures: FU operative cultures, currently NGTD. Blood cultures pending DVT PPx: SCD's, LVX while inpatient Dressing: Daily dry dressing changes per bedside RN Drain: Removed Imaging: TTE pending Disposition: Pending cultures results, final ID recommendations. Follow-Up: Return to clinic in [address] Moreira for a wound check. Please contact the Orthopaedic Surgery resident field artillery fire control man with any questions. Damaso Dill MD Orthopaedic Surgery Physical Therapy Attempt Note 12/31/2022 PT Therapy Completed: Attempted Attempted Reason: Patient declined session (Completed the home set up amd pt transfers to the EOB however refuses further mobility because he has no sensation below his knee and does not feel comfortabe with mobility at this time. Reports as soon as the nerve block wears off he will participate.) Ibis Ruiz PT Time In: 1155 Time Out: 1202 Total Visit Time: 7 minutes Total Treatment Time (skilled, billable minutes): 0 minutes Occupational Therapy Attempt Note 12/31/2022 OT Therapy Completed: Attempted Attempted Reason: Patient declined session OT order received and chart review completed. Patient transferred to edge of bed but then refused to complete standing with WW and assistance from PT and OT due to nerve block still affecting his L LE. Educated patient on weight bearing precautions of NWB through L LE except for transfers but patient still continued to refuse. Will attempt OT evaluation at later time as timing and staffing allows. Elisabet Moran OTD, OTR/L Time In: 1155 Time Out: 1159 Total Visit Time: 4 minutes Total Treatment Time (skilled, billable minutes): 0 minutes Orthopaedic Surgery Progress Note Preston Carrasquillo is a 67 y.o. male who is status post arthroscopic I&D of L ankle and subtalar joint with placement of stimulan on 12/30/[address] Moreira Last 24 Hours No acute events overnight. Afebrile with stable vital signs. Notes block is still in effect, with pain well controlled. Has yet to mobilize. Denies CP, SOB, nausea, vomiting. Has no acute concerns. Vitals Temp: [97.2 F (36.2 C)-98.2 F (36.8 C)] 97.3 F (36.3 C) Pulse (Heart Rate): [67-89] 79 Resp Rate: [11-21] 18 BP: (143-177)/(65-87) 143/65 O2 Sat (%): [94 %-100 %] 94 % Weight: [73.5 kg (162 lb)] 73.5 kg (162 lb) Oxygen Therapy O2 Sat (%): 94 % O2 Device: room air Flow (L/min): 6 Fluid Management (24hrs): Intake/Output last 3 shifts: I/O last 3 completed shifts: In: 2039 [P.O.:500; I.V.:1250; IV Piggyback:290] Out: 1095 [Urine:1000; Other:70] WBC/Hgb/Hct/Plts: 7.77/14.5/43.7/261 (12/30 1403-12/31 0507) Na/K+/Phos/Mg/Ca: 137/4.0/--/--/9.0 (12/30 1402) Bun/Creat/Cl/CO2/Glucose: 14/0.62/104//98 (12/30 1402-12/31 050) Physical Exam GEN - NAD, AAOx3 HEENT - NCAT, EOMI, supple neck, no lymphadenopathy CHEST - Equal chest rise, nonlabored breathing ABDOMEN - Soft, nontender EXT - LLE: Boot in place, dressing is clean, dry and intact. Reports no sensation throughout the toes or dorsum of the foot. Drain in place, holding suction appropriately. Foot is warm and well perfused. Laboratory Studies and Imaging WBC/Hgb/Hct/Plts: 7.77/14.5/43.7/261 (12/30 1402-12/31 506) Na/K+/Phos/Mg/Ca: 137/4.0/--/--/9.0 (12/30 1402) Bun/Creat/Cl/CO2/Glucose: 14/0.62/104/ (12/30 1402-12/31 506) Imaging Personally Reviewed: No new images obtained Drain: NR//40 Operative Cultures (12/30/22): Pending Assessment Preston Carrasquillo is a 67 y.o. male who is status post arthroscopic I&D of L ankle and subtalar joint with placement of stimulan on 12/30/[address] Moreira Plan Activity: PT/OT, CAM boot to the LLE Weight Bearing Status: NWB LLE, okay to WB for transfers Pain: Multimodal, PO with IV breakthrough Diet: Advance as tolerated Abx: Empiric vancomycin, tailor pending culture results and ID consult Cultures: FU cultures DVT PPx: SCD's, LVX while inpatient starting today Dressing: Dry dressing, maintain until POD2. Reinforce as needed. Drain: JPx1, record output q8hr Imaging: No further imaging required at this time Disposition: Pending cultures results, ID consult for antibiotic recommendations, PT/OT, pain control Follow-Up: Return to clinic in [address] Moreira for a wound check. Please contact the Orthopaedic Surgery resident field artillery fire control man with any questions. Damaso Dill MD Orthopaedic Surgery documented in this encounter [facility] 01-02-2023 Hospital course Narrative Discharge Summary Name: Preston Carrasquillo Age: 67 y.o. Birthday: 1955 Admit Date: 12/30/2022 11:22 AM Discharge Date: 01/02/2023 Admission Information Admitting Physician: Cristopher Moreira MD Discharge Information Discharge Physician: Dr. Cristopher Moreira Problem List Active Hospital Problems Diagnosis Chronic osteomyelitis of left ankle Resolved Hospital Problems No resolved problems to display. Brief Summary of Hospital Course for Discharge Summary: Mr. Preston Carrasquillo is a 67 y.o. year old male who presented to clinic for evaluation of his left ankle. He presented with erosive changes of the Left ankle and subtalar joint due to chronic septic arthritis. He had insidious onset of pain and medial ankle swelling in and underwent ankle joint washout and medial ankle abscess debridement with excision of the posterior tibial tendon 06/24/22; cultures grew MSSA and he was treated with doxycycline for 2 weeks. Overall improved but did have ongoing pain. Pain acutely worsened again in November 2022 and he was taken to the OR on 11/25/22 for arthroscopic washout of the left ankle; cultures grew MSSA again and he was treated with Rocephin daily infusion for 2 weeks. He has had worsening pain and deformity with XR/MRI showing erosive changes of the ankle and subtalar joints and abundant synovitis and joint effusion. He has not been on any antibiotics for >2 weeks. Options for management were discussed with Mr. Preston Carrasquillo who elected to proceed with surgical intervention. Once pre-operative clearance was received, Mr. Preston Carrasquillo underwent an arthroscopic I&D of left ankle and subtalar joint with placement of stimulan performed on 12/30/[address] Moreira. The patient tolerated the procedure well and no intra-operative complications were noted. Post-operative imaging and assessment proved stable. Hospital problems addressed during admission: Acute blood loss anemia: -Pre-op hgb 14 mg/dL, post-op hgb 11.9 mg/dL post-op -patient asymptomatic ETOH use -reports drinking 5 drinks per day -MAT consulted - patient politely declined -CIWA precautions ordered -thiamine and folic acid ordered L ankle osteomyelitis -s/p arthroscopic I&D of left ankle and subtalar joint with placement of stimulan performed on 12/30/2022 -ID consulted - recommending 6 weeks of IV Ancef (end date 02/10/2023) -PICC placed He underwent evaluations with Physical Therapy while hospitalized. Pain was managed with PO and IV pain medications. They tolerated a regular diet with no nausea or vomiting. Once approval was received, he was discharged in stable condition. Follow-up with Orthopedic Surgery is outlined in the discharge instructions. I spent 10 minutes on discharge management. Brief Summary of Consults for Discharge Summary: Brief Summary of Procedures and Imaging for Discharge Summary: Summary of last selected lab results and date obtained: Lab Results Component Value Date WBC 6.79 01/02/2023 HGB 12.0 (L) 01/02/2023 HCT 36.6 (L) 01/02/2023 PLATELET 233 01/02/2023 MCV 93.8 01/02/2023 Lab Results Component Value Date SODIUM 137 01/02/2023 POTASSIUM 3.9 01/02/2023 CHLORIDE 106 01/02/2023 CO2 26 01/02/2023 BUN 16 01/02/2023 CREATSERUM 0.82 01/02/2023 GLUCOSE 81 01/02/2023 Lab Results Component Value Date ALT 15 12/30/2022 AST 15 12/30/2022 ALKPHOS 66 12/30/2022 BILITOTAL 0.6 12/30/2022 Brief Summary of Labs for Discharge Summary: Discharge Orders CBC, EDIF, PLATELET BMP WITHOUT GLUCOSE LAB INSTRUCTIONS Please have the Home Care Company or Extended Care Facility obtain weekly Chem-6 (Including serum creatinine) without Glucose and CBC w/diff every Monday and fax to [phone], attention Dr. Zenaida Street or [employer] Barbie Mendoza Vascular Access Catheter Care (specify) ENROLL PATIENT IN OUTPATIENT PARENTERAL ANTIMICROBIAL THERAPY Current Outpatient Meds: Medication List for when you go home START taking these medications alteplase 2 MG SOLR 2 mg by Intracatheter route once as needed for Catheter Clearance (For an occluded line) for up to 1 dose. Commonly known as: CATHFLO Ascorbic acid 250 MG TABS Take 1 tablet by mouth 2 times daily. aspirin EC [address] Take 1 tablet by mouth 2 times daily. ceFAZolin injection Total daily dose: 6 g, via continuous IV infusion. Change bag every 12 hours. *diluent and final concentration at discretion of receiving pharmacy* Commonly known as: ANCEF cholecalciferol 10 MCG (400 UNIT) TABS Take 2 tablets by mouth daily. Commonly known as: VITAMIN D3 Start taking on: January 03, 2023 CUSTOM MEDICATION Please have the Home Care Company or Extended Care Facility obtain weekly Chem-6 (Including serum creatinine) without Glucose and CBC w/diff every Monday and fax to [phone], attention Dr. Zenaida Street or [employer] Barbie Mendoza Cyclobenzaprine 5 MG TABS Take 1 tablet by mouth 3 times daily as needed for Muscle spasms. Commonly known as: FLEXERIL Folic acid 1 MG TABS Take 1 tablet by mouth daily. Commonly known as: FOLVITE For diagnoses: Septic arthritis of left ankle Start taking on: January 03, 2023 Gabapentin 100 MG CAPS Take 1 capsule by mouth 3 times daily for 14 days. Commonly known as: NEURONTIN Multi-Vitamins TABS Take 1 tablet by mouth daily. For diagnoses: Septic arthritis of left ankle Start taking on: January 03, 2023 naproxen 500 MG TABS Take 1 tablet by mouth 2 times daily for 14 days. Commonly known as: NAPROSYN oxyCODONE 5 MG TABS Take 1-2 tablets by mouth every 6 hours as needed for Moderate Pain or Severe Pain for up to 7 days. Doctor's comments: [facility] reviewed 01/02/2023. For management of acute postoperative pain in setting of extensive ortho surgery. Commonly known as: ROXICODONE For diagnoses: Chronic osteomyelitis of left ankle, Acute postoperative pain Thiamine 100 MG TABS Take 1 tablet by mouth daily. For diagnoses: Septic arthritis of left ankle Start taking on: January 04, 2023 CHANGE how you take these medications Acetaminophen 325 MG tablet Take 2 tablets by mouth every 6 hours. Commonly known as: TYLENOL What changed: The strength you have reported taking of this medication has changed The quantity you have reported taking of this medication has changed How often you have reported taking this medication has changed You should now only take this medication as needed baclofen 20 MG TABS Take 1 tablet by mouth daily every morning. Commonly known as: LIORESAL What changed: Another medication with the same name was removed. Continue taking this medication, and follow the directions you see here. CONTINUE taking these medications Clobetasol Propionate 0.025 % CREA Apply 1 Application topically daily. lidocaine 5 % PTCH patch Place 1 patch on skin every 24 hours. Max of 12 hours of application then remove. Commonly known as: LIDODERM Lisinopril 10 MG TABS Take 2.5 mg by mouth daily every morning. Commonly known as: PRINIVIL rOPINIRole 1 MG TABS Take 1 tablet by mouth 2 times daily. Commonly known as: REQUIP traZODone 100 MG TABS Take 1 tablet by mouth at bedtime. Commonly known as: DESYREL STOP taking these medications baclofen 10 MG TABS Commonly known as: LIORESAL You also have another medication with the same name that you need to continue taking as instructed. Meloxicam 15 MG TABS Commonly known as: MOBIC traMADol 50 MG TABS Commonly known as: ULTRAM Follow-up: No follow-up provider specified. Upcoming Appointments (up to five)-Some appointments for Medical Center outpatient clinics or diagnostic testing locations are not displayed below Provider Department Dept Phone 01/12/2023 1:00 PM [facility]o [facility] [place] Arrive at: Arrive to 1st Floor Registration Desk [phone] 02/08/2023 8:00 AM Barbie Mendo[facility] Arrive at: THIS IS A VIDEO VISIT, DO NOT GO TO THE CLINIC. [phone] 02/09/2023 1:30 PM [facility] [place] Arrive at: Arrive to 1st Floor Registration Desk [phone] documented in this encounter [facility] 01-02-2023 Note Formatting of this n ote might be different from the original. Problem: Ortho - Goals Goal: Ortho - Sit to Stand Description: Pt will perform sit to/from stand transfer with no greater than sup assist with wheeled walker for improved ability to safely discharge to next level of care. Outcome: Ongoing Goal: Ortho - Ambulate 100 ft Description: Pt will ambulate 100 feet with stand by assist with wheeled walker NWBing or WBing as ordered to promote home navigation. Outcome: Ongoing Goal: Ortho - Knee ROM Description: Pt will demonstrate independence with donning/doffing the boot on the L LE Outcome: Ongoing [facility] 01-02-2023 Note Formatting of this n ote might be different from the original. picc placement verified using bard technology. picc placement picture not able to be saved due to bad drive. picc placement verified visually by 2 picc nurses, dinh gleason and coni munoz. [facility] 01-02-2023 Note Formatting of this n ote is different from the original. Images from the original note were not included. Report of PICC Consultation and Evaluation: Patient seen and evaluated for PICC insertion using ultrasound guidance. ID band present, allergies and limb precautions verified with patient/nurse. Skin integrity within normal limits at time of insertion. No evidence of ecchymosis, infiltration, hematoma, edema, or any condition that would prevent safe insertion of a PICC with ultrasound. I have reviewed pertinent laboratory results. Lab Results Component Value Date WBC 6.79 01/02/2023 HGB 12.0 (L) 01/02/2023 HCT 36.6 (L) 01/02/2023 PLATELET 233 01/02/2023 MCV 93.8 01/02/2023 Lab Results Component Value Date CREATSERUM 0.82 01/02/2023 No results found for: INR, PT No results found for: PTT Temp Readings from Last 1 Encounters: 01/02/23 97.2 F (36.2 C) (Oral) Blood cultures have been reviewed. I have discussed the following issues with the ordering Clinician: Procedure explained to patient. Anatomical distortion to interfere with placement:no known restriction Arm preference for venous access: Left Arm Patient is alert, cooperative, no distress, appears stated age Patient Teaching: Yes Family Teaching: No [facility] Protocol/Time Out Completed under Procedure Documentation Step 3: Time Out Includes Patient and Procedure (side/site marked when applicable),: yes Patient Positioning Correct?: Yes The need for antibiotics or fluids to be administered: n/a Relevant images displayed (if applicable): yes Care of specimens (if applicable): N/A [facility] Protocol Verification Name of Practitioner attesting all steps of the Whitney Protocol have been completed: coni/dinh PROCEDURE DETAILS: PICC Insertion Procedure Using standard sterile technique access was obtained. Good blood return noted, catheter flushed easily with 10mls 0.9 NS per lumen. Statlock device used to secure PICC. Dressing applied. Pt denies pain at insertion site. PICC Line - Single Lumen 01/02/23 1219 basilic vein (medial side of arm), left 4 Fr (Active) 01/02/23 1219 Present On Admission : no Lumen 1: Lumen 2: Lumen 3: Location: basilic vein (medial side of arm), left Device/Lot Number: pressure injectable catheter;open-ended catheter;valved catheter;does not require heparinized flush;lot number (specify) Buck Swamper/Lot Number: [id number] Size/Length: 4 Fr Inserted Catheter Length (cm): 44 Total Length (cm): 44 Placement Verification: tip confirmation system utilized Tip Termination: Guiding Device: ultrasound Indication/Daily Review of Necessity: antibiotic therapy Inserted By: Registered Nurse Unsuccessful Insertion Attempts: 0 Unsuccessful Attempt Location/Site: Pain Prevention/Patient Tolerance: distraction;intradermal injection Removal: Placement Over Guidewire: yes Additional Comments: Lumen 4: Lumen 5: Patient tolerated procedure well without any complications Extra insertion note if applicable: [X] Absorbable hemostat applied to insertion site. [] Antimicrobial foam disc/dressing. [] Unable to place Antimicrobial foam disc/drsg due to: [] CXR ordered for PICC tip confirmation. [] Obtained labs. ( labeled labs taken to in biohazard bag ) [X] Call light in reach. [X] Bed low and locked. [X] Tray table within reach. Education: Patient/Family informed to notify nurse of any complications including pain, redness, swelling, or leakage post insertion. Central Venous Catheter Insertion Checklist Was the line placed emergently (e.g., during Code Blue or trauma): N/A Before the procedure, did the clinician 1. Document informed consent. yes 2. Perform timeout. Yes 3. Lumber Stacker Operator: If enter sterile field, uses sterile gown and gloves, cap, mask/eye protection. N/A 4. Prep site with ChloraPrep for 30 sec minimum (if femoral 120 sec minimum). Yes 5. Sterile technique to drape patient from head to toe. Yes During the procedure, did the clinician 1. Maintain a sterile field. Yes 2. Obtain a qualified concaving machine operator IF 3 unsuccessful sticks. (except if emergent); document the number of attempts. N/A 3. Change gloves: if a catheter was exchanged over a guide wire before handling the new sterile catheter. N/A 4. Account for the guidewire at all times. Yes After the procedure, did the clinician 1. Apply a sterile dressing immediately after insertion. Yes 2. Document date and time on the dressing. Yes 3. Perform hand hygiene. Yes 4. All staff wore a mask until sterile dressing placed. Yes 5. Dispose sharps immediately after the procedure. Yes I have completed the Central Venous Catheter Insertion Checklist. [facility] 01-02-2023 Hospital Discharge instructions Queenie Muniz, OUTSOLE COMPRESSOR-PHYSICAL MEDICINE SPECIALIST - 01/02/2023 11:41 AM EST POST-OP INSTRUCTIONS AFTER YOUR FOOT/ANKLE SURGERY Continue Asa 81 mg twice daily for DVT (blood clot) prophylaxis while immobilized and nonweightbearing. Based upon your interest in the ELIQUIS (apixaban) Virtual Affordability program and completion of the 'Virtual Affordability Request Form', attached below is the unique URL for your hospital/system. [email or web address] Please utilize the unique URL provided to access an electronic version of the following: Eliquis Copay Card Eliquis Pre-Activated 30-day Free Trial Offer PAIN!!!! You will be given pain medication please take medication on time around the clock to be as painless as possible during your recovery. Please call the clinic at least 3 days before your medication runs out. CRUTCHES Use your crutches/walker as instructed. Do not apply weight to the foot/ankle until cleared by your surgeon. The anticipated rehab plan will be: * 0-2wks: CAM boot, nonweightbearing, continue to wear CAM boot, -- you may place weight on your left ankle in your boot for transfers only * 2-6wks: CAM boot, nonweightbearing, gentle ankle range of motion exercises * 6-10wks: CAM boot, progressive weightbearing as tolerated, gentle ankle range of motion exercises * 10-12wks: transition to laceup brace * >12wks: progressive return to activity as tolerated, bracing as needed, Physical Therapy as needed DRESSING Daily dry dressing changes using gauze, ABD pads, and Zbigniew wrap. ELEVATION Swelling will occur after your surgery. While it is a normal response to the surgery, it can contribute to your pain. Keeping the limb elevated above your heart will help. Try to elevate as much as possible to reduce swelling. SHOWERING You may shower. In order to maintain the splint or dressing dry please cover it with a plastic bag and secure the ends with tape. Condensation in a shower can create a hazardous environment. Please be mindful of your environment and maintain appropriate shower safety in order to prevent slips and falls. Do not soak in a bath tub, hot tub, or pool until the doctor tells you it is O.K. to do so. ICE You should ice the foot/ankle as often as possible to reduce swelling and discomfort. You may place ice in a plastic bag on the splint. Do not directly ice the foot/ankle more than 20 minutes at a time. Let the foot/ankle warm up before reapplication. Avoid getting your wound wet. COMMON CONCERNS 1. You may experience a variety of transient symptoms in the area of the wounds, including itchiness, increased sensitivity to touch, and numbness. These will improve with time. 2. A sudden lara or feeling of fullness with pain when going from a sitting to a standing position in the foot/ankle is common after surgery. 3. If at any time you have discomfort, swelling, or redness in the calf (behind the leg between the knee and the ankle) please call the doctor immediately. FEVER/INFECTION A low-grade fever is not uncommon. If you develop a significant fever greater than 101, or if you develop redness or excess drainage from your incision(s), call the clinic during business hours at or the Emergency Room after business hours. ATELECTASIS This is a common condition in patients who have had surgery and is a common cause of low-grade fevers during the first 24-48 hours following surgery. It occurs if a patient is not taking normal (deep) breaths and not moving around with normal activity, which is what often happens when patients are recovering from surgery. Taking narcotic pain medications and not doing the normal amount of walking and other activity restrictions can predispose a patient to this condition. However, it is easily remedied by either taking 10 deep breaths at least once or twice every hour, or using the incentive spirometer instrument (ball that floats up in a tube when take a deep breath) if your doctor prescribed one for you when you were discharged. CONSTIPATION This also commonly occurs after surgery due to taking narcotic pain medication, being inactive, or both. If your bowel habits have slowed significantly or you are unable to have a bowel movement, and you were not sent home on a stool softener, you may need to call the Ortho clinic and ask your doctor to order a stool softener to help you have a bowel movement. Final Infectious Disease Recommendations: Outpatient Parenteral Antibiotic Therapy (OPAT): For patients who will be discharged on parenteral (IV) antibiotic therapy, please utilize the OPAT discharge orderset. For patients who are on oral antibiotic therapy, utilization of this orderset is not necessary. Diagnosis: Left ankle osteomyelitis Antibiotic(s) with dose: The dosing of these antibiotics is based on today's PK/PD calculations and is subject to change. Please evaluate the patient's medication list and carefully verify their dosing, and infusion rate prior to discharge. Do not hesitate to call the on-call ID Team with any questions. - Cefazolin 3 gm every 12 hour as a continuous infusion Duration of Therapy: Total Duration of therapy: 6 weeks Cefazolin: 12/31/2022 - Start Date:; Stop Date: 02/10/2023 Does Patient Need Oral Antibiotic Therapy at the End of Parenteral Therapy: No OPAT ID Providers: Dr. Zenaida Street or BETHEL Mendoza Labs: Please have the Home Care Company or Extended Care Facility obtain weekly Chem-6 (Including serum creatinine) without Glucose and CBC w/diff every Monday and fax to [phone], attention Dr. Zenaida Street or BETHEL Mendoza Imaging: No Follow-up: Yes - patient should follow-up either via telemedicine/video visit ID Clinic (Please ensure patient is enrolled in [facility] prior to discharge in order for Virtual Visits to be performed) Prior to discharge, please call [phone] (hospital follow-up line only) to schedule an appointment with the provider listed above. If the patient is being discharged to a [facility] ([facility]), we will defer ID Care to the Infectious Disease Providers at the LTACH facility. Please instruct the facility that if the patient requires ID Follow-up after discharge, then they should call our office to arrange for an appointment. Central Access: Can Central Access be removed at the end of therapy: Yes Additional notes Will arrange telephone visit for 02/09/2023. The following attachments cannot be sent through Care Everywhere.Caring for Your PICC or Central IV Line: Video (South Korean)Catheter - Peripherally Inserted Central (PICC) (William Dallas) (South Korean)documented in this encounter [facility] 01-02-2023 Consult note Formatting of th is note might be different from the original. Received IP Consult to Addiction Medicine Consult completed by Dr. Wilkes. Pt politely declined any addiction medicine needs at this time. Addiction medicine to continue to follow as needed. ISIAH Astudillo Psychiatric Counselor Addiction Medicine Consult Services PH: [phone] Available M-F [facility] 01-02-2023 Consult note Formatting of th is note might be different from the original. Received IP Consult to Addiction Medicine Consult completed by Dr. Wilkes. Pt politely declined any addiction medicine needs at this time. Addiction medicine to continue to follow as needed. ISIAH Astudillo Psychiatric Counselor Addiction Medicine Consult Services PH: [phone] Available M-F Associated Order(s): IP CONSULT TO ADDICTION MEDICINE ADDICTION MEDICINE - INITIAL CONSULT Patient: Preston Oliva Leatha, NGUYEN 1955, Physician: Jailyn Wilkes DO, Addiction Medicine Consult Team Reason for Consult: Assessment of alcohol and substance use Consulting Provider: Cristopher Moreira MD Encounter date: 12/31/2022 IMPRESSION/PLAN We attempted to see Lb for consultation today. However, after introduction of team, patient declines further interview at this time. Will attempt follow-up as able to build rapport with patient and support him in this hospital stay. If any acute needs arise please contact the Addiction Medicine Team via IH[employer] Chat or pager. 1. The patient politely declined evaluation by the Addiction Medicine service. Therefore, I am unable to assess for the presence or severity of alcohol or substance use disorders. 2. Based on the concerns raised in the clinical consult, such a disorder (or harmful or hazardous use that does not rise to the threshold of a disorder) may or may not be present. 3. Potential for clinically significant withdrawal: Please remain vigilant for signs of clinically significant withdrawal. I recommend monitoring vital signs and clinical withdrawal assessments (CIWA) and offering symptomatic treatment per hospital protocol. 4. The following medications are often useful in treating symptoms of withdrawal: 1. Tylenol 650 - 975 mg PO q 6 h PRN for myalgia / bone pain 2. Ibuprofen 400 mg PO q 6 h PRN for myalgia / bone pain 3. Hydroxyzine 25 mg PO q 8 h PRN for anxiety 4. Loperamide 4 mg PO PRN diarrhea not to exceed 16 mg in 24 h 5. Dicyclomine 10-20 mg PO q 6 h PRN abdominal cramps 6. Zofran 4 mg PO q 6 h PRN nausea & vomiting 7. Melatonin 3 mg q HS scheduled for insomnia 8. Trazodone 50 mg q HS PRN for insomnia 5. Data review: I have reviewed all relevant clinical data including vital signs (within normal limits), clinical withdrawal assessments (CIWA 0), labs (AST, BUN, creatinine within normal limits), medications 6. Additional recommended work up: A urine drug screen should be considered only if results would serve the patient's best interest by informing their hospital care. Liver panel, viral hepatitis testing, STI testing may also be indicated depending on the clinical scenario. 7. Discharge planning: Given that the patient has declined our services, we are unable to assess the most appropriate ASA level of care or assist and discharge planning. However, please feel free to reach out to us with additional questions or concerns. HISTORY OF PRESENT ILLNESS Preston Carrasquillo is a 67 y.o. male with history of restless legs syndrome, arthritis, hypertension, several recent orthopedic surgeries for left ankle infection admitted to [facility] with chief complaint of left ankle pain 12/30. He is seen today in consultation for evaluation of alcohol use. All history per chart review. Patient politely declined bedside assessment by the Addiction Medicine team. MEDICAL HISTORY Past Medical History: Diagnosis Date Ankle joint pain Essential hypertension, benign Flat foot Hernia, umbilical Hyperlipidemia Ingrown toenail Low back pain Male erectile dysfunction Pain in left shoulder Pain in right shoulder Pityriasis versicolor RLS (restless legs syndrome) Past Surgical History: Procedure Laterality Date INSERTION NEUROSTIMULATOR ELECTRODE SPINAL PERCUTANEOUS N/A 07/13/2021 Laterality: N/A; Surgeon: Tyrell Weinberg DO; Location: [facility] INSERTION REPLACEMENT NEUROSTIMULATOR GENERATOR SPINAL N/A 07/13/2021 Laterality: N/A; Surgeon: Tyrell Weinberg DO; Location: [facility] ANALYSIS/PROGRAMMING NEUROSTIMULATOR GENERATOR SYSTEM N/A 07/13/2021 Laterality: N/A; Surgeon: Tyrell Weinberg DO; Location: [facility] ARTHROSCOPY SHOULDER W/ ROTATOR CUFF REPAIR Left 10/27/2017 Laterality: Left; Surgeon: Majo Phan MD; Location: [facility] ARTHROSCOPY SHOULDER W/ SUBACROMIAL DECOMPRESSION/ACROMIOPLASTY ADD-ON Left 10/27/2017 Laterality: Left; Surgeon: Majo Phan MD; Location: [facility] ARTHROSCOPY SHOULDER W/ DEBRIDEMENT Left 10/27/2017 Laterality: Left; Surgeon: Majo Phan MD; Location: [facility] PERIOP HERNIA REPAIR SOCIAL HISTORY Unable to obtain additional social history. Patient declined to be interviewed. Social History Tobacco Use Smoking status: Never Smokeless tobacco: Never Substance Use Topics Alcohol use: Yes Alcohol/week: 35.0 standard drinks Types: 35 Cans of beer per week Comment: 5 daily Social History Substance and Sexual Activity Drug Use Never FAMILY HISTORY Unable to obtain additional social history. Patient declined to be interviewed. Family history is unknown by patient. MEDICATIONS Prior to Admission Medications Prescriptions Last Dose Informant Patient Reported? Taking? Clobetasol Propionate 0.025 % Cream More than a month Yes No Sig: Apply 1 Application topically daily. Meloxicam 15 MG tablet Past Week Yes Yes Sig: Take 1 tablet by mouth as needed. acetaminophen 500 MG tablet 12/27/2022 Yes No Sig: Take 2 tablets by mouth every 6 hours as needed. baclofen 10 MG tablet Yes No Sig: Take 1 tablet by mouth 2 times daily as needed. baclofen 20 MG tablet 12/29/2022 Yes Yes Sig: Take 1 tablet by mouth daily every morning. lidocaine 5 % Patch patch Past Week Yes Yes Sig: Place 1 patch on skin every 24 hours. Max of 12 hours of application then remove. lisinopril 10 MG tablet 12/29/2022 Yes Yes Sig: Take 2.5 mg by mouth daily every morning. rOPINIRole 1 MG tablet 12/30/2022 Yes Yes Sig: Take 1 tablet by mouth 2 times daily. traMADol 50 MG tablet 12/29/2022 Yes Yes Sig: Take 1 tablet by mouth. traZODone 100 MG tablet Past Week Yes Yes Sig: Take 1 tablet by mouth at bedtime. Facility-Administered Medications: None ALLERGIES No Known Allergies REVIEW OF SYSTEMS Unable to obtain ROS. Patient declined to be interviewed. PHYSICAL EXAM Vitals: 12/31/22 1523 BP: 151/68 Pulse: 69 Resp: 18 Temp: 97.9 F (36.6 C) O2 Device: room air (12/31/22 1555) Flow (L/min): 6 (12/30/22 1708) Psych (Mental Status Exam): Sensorium: alert Appearance: appropriate Speech: normal rate, rhythm, and volume Mood: Unable to assess Affect: blunted Orientation: Unable to assess Thought Process: Unable to assess Suicidal Ideation: Unable to assess Homicidal Ideation: Unable to assess Hallucination: Unable to assess Delusion: Unable to assess Memory: Unable to assess Insight/Judgment: Unable to assess DATA REVIEW WBC/Hgb/Hct/Plts: --/--/--/261 (12/31 506) Bun/Creat/Cl/CO2/Glucose: --/0.62/--/--/-- (12/31 506) Body mass index is 25.37 kg/m . Signed, Jailyn Wilkes DO [facility] Consult Service Pager [phone] Associated Order(s): IP CONSULT TO INFECTIOUS DISEASE [facility] INFECTIOUS DISEASE CONSULTATION REQUESTING PHYSICIAN: Cristopher Moreira MD REASON FOR CONSULTATION: Chronic osteomyelitis of left ankle - post op, bone biopsy; please consider picc and abx if positive HISTORY OF PRESENT ILLNESS: Preston Carrasquillo is a 67 y.o. male with daily ETOH use, HTN, HLD, restless leg syndrome, chronic low back pain s/p spinal cord stimulator placement (07/13/21) and prior left ankle septic arthritis due to MSSA with prior MSSA bacteremia who is admitted after undergoing L ankle debridement and placement of antibiotics spacer on 12/30. He reports he developed some L foot pain this spring/summer which he attributed to dropped arch. He underwent a needle therapy in May where a large needle was placed in the joint, some blood was removed and filtered and then the injected back. He says initially his foot pain improved but he then developed L ankle pain and swelling and presented to [facility] on 06/20/22 and had an ankle aspiration showing WBC 93,000, PMNs 96%. He was taken to the OR on 06/24/22 for I&D of the L ankle and debridement of medial ankle and operative cultures grew MSSA. He also had blood cultures obtained which also grew MSSA. He was treated with IV vanco during admission and discharged with PO doxy x 14 days. The Doxy course was then extended another 14 days as an outpatient. He says the ankle initially did better and he was able to walk for a few weeks without crutches but then his foot pain became worse. He had an admission in Jul with altered mental status and agitation but does not appear the infection was addressed at that time. He continued to have L ankle pain so was again taken to the OR on 11/25/21 for L ankle arthroscopic I&D and debridement and cultures again grew MSSA. He was treated with IV ceftriaxone 1gm Q24 hours x 14 days. He initially has some improvement in the pain following surgery and antibiotics but the pain has again worsened so he was seen by Dr. Moreira for a second opinion and was taken to the OR on 12/30 for L ankle extensive debridement and placement of antibiotic spacer. Operative note describes abundant thickened synovitis in ankle and subtalar joints with severe cartilage wear; no gross purulence He reports doing well following surgery. Denies fever or chills or other systemic symptoms. He has a spinal stimulator but denies any pain or swelling associated with it. He denies any recent antibiotics since completing IV ceftriaxone. REVIEW OF SYSTEMS: Review of Systems - (all positives in bold, otherwise negative) Gen: fever, chills, weight loss, fatigue, night sweats HEENT: visual changes, hearing loss Cardiac: chest pain Resp: shortness of breath, cough, sputum GI: nausea, vomiting, diarrhea, abdominal pain : urinary frequency, urgency, dysuria, MSk: back pain, joint pain, swelling SKIN: rash, redness Neuro: headache, numbness EXPOSURE HISTORY: Denies any injection drug use Lives with Drinks ETOH daily (beer) PAST MEDICAL HISTORY: Past Medical History: Diagnosis Date Ankle joint pain Essential hypertension, benign Flat foot Hernia, umbilical Hyperlipidemia Ingrown toenail Low back pain Male erectile dysfunction Pain in left shoulder Pain in right shoulder Pityriasis versicolor RLS (restless legs syndrome) PAST SURGICAL HISTORY: Past Surgical History: Procedure Laterality Date INSERTION NEUROSTIMULATOR ELECTRODE SPINAL PERCUTANEOUS N/A 07/13/2021 Laterality: N/A; Surgeon: Tyrell Weinberg DO; Location: [facility] INSERTION REPLACEMENT NEUROSTIMULATOR GENERATOR SPINAL N/A 07/13/2021 Laterality: N/A; Surgeon: Tyrell Weinberg DO; Location: [facility] ANALYSIS/PROGRAMMING NEUROSTIMULATOR GENERATOR SYSTEM N/A 07/13/2021 Laterality: N/A; Surgeon: Tyrell Weinberg DO; Location: [facility] ARTHROSCOPY SHOULDER W/ ROTATOR CUFF REPAIR Left 10/27/2017 Laterality: Left; Surgeon: Majo Phan MD; Location: [facility] ARTHROSCOPY SHOULDER W/ SUBACROMIAL DECOMPRESSION/ACROMIOPLASTY ADD-ON Left 10/27/2017 Laterality: Left; Surgeon: Majo Phan MD; Location: [facility] ARTHROSCOPY SHOULDER W/ DEBRIDEMENT Left 10/27/2017 Laterality: Left; Surgeon: Majo Phan MD; Location: [facility] HERNIA REPAIR FAMILY HISTORY: Family History Family history unknown: Yes SOCIAL/EXPOSURE HISTORY: Social History Socioeconomic History Marital status: Tobacco Use Smoking status: Never Smokeless tobacco: Never Vaping Use Vaping Use: Never used Substance and Sexual Activity Alcohol use: Yes Alcohol/week: 35.0 standard drinks Types: 35 Cans of beer per week Comment: 5 daily Drug use: Never ALLERGIES: No Known Allergies MEDICATIONS reviewed: Acetaminophen 650 mg Oral Q6H Ascorbic acid 250 mg Oral BID baclofen 20 mg Oral QAM cholecalciferol 800 Units Oral Daily Docusate 100 mg Oral BID enoxaparin 40 mg Subcutaneous Daily Folic acid 1 mg Oral Daily Or Folic acid 1 mg Per NG tube Daily Or Folic acid 1 mg Intravenous Daily Gabapentin 100 mg Oral TID Lisinopril 2.5 mg Oral QAM Multi-Vitamins 1 tablet Per NG tube Daily Or Multi-Vitamins 1 tablet Oral Daily Naproxen 500 mg Oral BID rOPINIRole 2 mg Oral BID Thiamine 100 mg Oral Q8H Or Thiamine 100 mg Per NG tube Q8H Or thiamine (B-1) injection 100 mg Intravenous Q8H [START ON 01/04/2023] Thiamine 100 mg Oral Daily traZODone 100 mg Oral QHS Vancomycin (VANCOCIN) IVPB 15 mg/kg (Adjusted) Intravenous Q12HNS PHYSICAL EXAM: Vitals: BP 137/65 (BP Location: Right arm, BP Position: Sitting) Pulse 74 Temp 97.3 F (36.3 C) (Oral) Resp 18 Ht 1.702 m (5' 7 ) Wt 73.5 kg (162 lb) SpO2 93% BMI 25.37 kg/m Smoking Status Never Gen: No Acute Distress, Alert and appropriate, sitting up in bed HEENT: normal sclera and conjunctiva, O/P clear, MMM Neck: supple, no cervical lymphadenopathy CV: RRR + systolic murmur Lungs: CTA B Abd: BS present, soft, NT, ND Back: L lower back spinal stimulator without surrounding erythema, warmth or swelling Ext: Dressing over L ankle, no surrounding erythema, warmth of swelling Skin: No rashes Neuro: Alert and appropriate, No focal neuro deficits LABS: CBC Lab Results Component Value Date WBC 7.77 12/30/2022 HGB 14.5 12/30/2022 HCT 43.7 12/30/2022 PLATELET 261 12/31/2022 MCV 92.0 12/30/2022 EDIF Lab Results Component Value Date RBCDISTRIBU 14.9 (H) 12/30/2022 PLATELET 261 12/31/2022 MPV 10.2 12/31/2022 Lab Results Component Value Date SODIUM 137 12/30/2022 POTASSIUM 4.0 12/30/2022 CHLORIDE 104 12/30/2022 CO2 25 12/30/2022 BUN 14 12/30/2022 CREATSERUM 0.62 (L) 12/31/2022 Lab Results Component Value Date ALT 15 12/30/2022 AST 15 12/30/2022 ALKPHOS 66 12/30/2022 BILITOTAL 0.6 12/30/2022 Lab Results Component Value Date SEDRATE 20 (H) 12/30/2022 Lab Results Component Value Date CRP 2.12 12/30/2022 Microbiology: 12/30 Operative cultures - pending Outside Micro: 06/24/22 Bursa and ankle Cx - MSSA 06/24 Bld Cx - MSSA 08/09 Bld Cx - Micrococcus 11/25/22 Ankle Cx - MSSA Radiology: 12/22 L ankle X-ray: Tibiotalar osteoarthritis with associated osteochondral irregularity of the tibial plafond and talar dome. Mild talar inversion with features predisposing to lateral hindfoot impingement. Advanced osseous demineralization. Remote ligamentous trauma. 10/13/22 CT L ankle: 1. Diffuse [id number] degenerative changes as detailed above. 2. Large tibiotalar joint effusion, the sterility of which is indeterminate. Probable small to moderate amount of fluid in association with the medial flexor tendons. Large amount of fluid in association with the peroneal tendons. Findings likely represent underlying tenosynovitis with sterility indeterminate. 3. Diffuse osteopenia. No acute fracture or dislocation. No aggressive osseous destruction. 4. Atherosclerotic calcification of the vasculature. 5. Small suprapatellar joint effusion. 6. Iuuf-vd-[id number] edema in the subcutaneous fat at the dorsal/lateral aspect of the foot. 06/23/22 CT ANKLE LEFT W CONTRAST 1. Large peripherally enhancing subtalar and tibiotalar joint effusions in communication with a large amount of fluid within and rim enhancement of the medial flexor and peroneal tendon sheaths. The sterility of this fluid is indeterminate. Findings raise concern for septic joint effusions and infectious tenosynovitis involving the medial flexor and peroneal tendons. 2. Moderate to severe cellulitis of the foot and ankle. 3. No aggressive osseous destruction. 4. Diffuse osteopenia and degenerative changes as detailed above. 5. Evidence of remote injury to the medial and lateral malleolus. 6. Mild plantar calcaneal spur. No acute fracture or dislocation. ASSESSMENT: Preston Carrasquillo is a 67 y.o. male with daily ETOH use, HTN, HLD, restless leg syndrome, chronic low back pain s/p spinal cord stimulator placement (07/13/21) and prior left ankle septic arthritis due to MSSA with prior MSSA bacteremia who is admitted after undergoing L ankle debridement and placement of antibiotics spacer on 12/30. 1. L ankle septic arthritis and osteomyelitis due to MSSA - Symptoms started in Jun after he underwent an injection procedure. Had 2 prior debridements which both grew MSSA and now s/p L ankle debridement and placement of antibiotics spacer on 12/30, operative cultures pending. 2. H/o MSSA bacteremia - had MSSA bacteremia in Jun 2022 that was treated with PO doxy x 4 weeks. Noted to have heart murmur on exam but no other symptoms 3. Chronic back pain with spinal cord stimulator 4. Estimated Creatinine Clearance: 107 mL/min (A) (by C-G formula based on SCr of 0.62 mg/dL (L)). RECOMMENDATIONS: Diagnostics: - Follow-up pending operative cultures - Check blood cultures x 2 - Check TTE given heart murmur and prior MSSA bacteremia Therapeutics: - Stop IV vanco - Start IV cefazolin 3gmQ12 hours given as a continuous infusion. - Anticipate he will need 6 weeks of of IV antibiotics and PICC line but final antibiotic plan pending final culture and imaging results [facility] consult team will continue to follow. Please call with questions. Zenaida Street MD Infectious Diseases, Pager #[phone] documented in this encounter [facility] 01-02-2023 Note Formatting of this n ote might be different from the original. Second assessment completed per policy.There are no noted changes from previous assessment unless otherwise documented. Pain is managed with analgesics and acetaminophen. Patient is educated on pain management, fall precautions and infection prevention measures. He verbalizes understanding. Bed alarm is on and call light is within reach. [facility] 01-01-2023 Note Formatting of this n ote might be different from the original. Problem: Patient Care Overview Goal: Plan of Care Review Outcome: Ongoing Goal: Individualization & Mutuality Outcome: Met This Shift Problem: Pain, Acute (Adult) Goal: Identify Related Risk Factors and Signs and Symptoms Description: Related risk factors and signs and symptoms are identified upon initiation of Human Response Clinical Practice Guideline (CPG) Outcome: Progressing Toward Goal Goal: Acceptable Pain Control/Comfort Level Description: Patient will demonstrate the desired outcomes by discharge/transition of care. Outcome: Progressing Toward Goal Problem: Mobility, Physical Impaired (Adult) Goal: Identify Related Risk Factors and Signs and Symptoms Description: Related risk factors and signs and symptoms are identified upon initiation of Human Response Clinical Practice Guideline (CPG) Outcome: Progressing Toward Goal Goal: Enhanced Mobility Skills Description: Patient will demonstrate the desired outcomes by discharge/transition of care. Outcome: Progressing Toward Goal Goal: Enhanced Functionality Ability Description: Patient will demonstrate the desired outcomes by discharge/transition of care. Outcome: Progressing Toward Goal [facility] 01-01-2023 Note Formatting of this n ote might be different from the original. Problem: Surgery Nonspecified (Adult) Goal: Anesthesia/Sedation Recovery Outcome: Met This Shift Problem: Dysphagia (Adult) Goal: Functional/Safe Swallow Description: Patient will demonstrate the desired outcomes by discharge/transition of care. Outcome: Met This Shift Problem: Patient Care Overview Goal: Plan of Care Review Outcome: Ongoing Goal: Individualization & Mutuality Outcome: Ongoing Goal: Discharge Needs Assessment Outcome: Ongoing Problem: Pain, Acute (Adult) Goal: Identify Related Risk Factors and Signs and Symptoms Description: Related risk factors and signs and symptoms are identified upon initiation of Human Response Clinical Practice Guideline (CPG) Outcome: Ongoing Goal: Acceptable Pain Control/Comfort Level Description: Patient will demonstrate the desired outcomes by discharge/transition of care. Outcome: Ongoing Problem: Surgery Nonspecified (Adult) Goal: Signs and Symptoms of Listed Potential Problems Will be Absent, Minimized or Managed (Surgery Nonspecified) Description: Signs and symptoms of listed potential problems will be absent, minimized or managed by discharge/transition of care (reference Surgery Nonspecified (Adult) CPG). Outcome: Ongoing Problem: Dysphagia (Adult) Goal: Identify Related Risk Factors and Signs and Symptoms Description: Related risk factors and signs and symptoms are identified upon initiation of Human Response Clinical Practice Guideline (CPG) Outcome: Ongoing Goal: Compensatory Techniques to Improve Safety/Function with Swallowing Description: Patient will demonstrate the desired outcomes by discharge/transition of care. Outcome: Ongoing Problem: Mobility, Physical Impaired (Adult) Goal: Identify Related Risk Factors and Signs and Symptoms Description: Related risk factors and signs and symptoms are identified upon initiation of Human Response Clinical Practice Guideline (CPG) Outcome: Ongoing Goal: Enhanced Mobility Skills Description: Patient will demonstrate the desired outcomes by discharge/transition of care. Outcome: Ongoing Goal: Enhanced Functionality Ability Description: Patient will demonstrate the desired outcomes by discharge/transition of care. Outcome: Ongoing [facility] 01-01-2023 Note Formatting of this n ote might be different from the original. Reassessment completed per policy, no noted changes from previous assessment unless otherwise documented. Pt. Is alert, oriented, and vitals are stable. Pt is oriented to call light and alarms. All questions were answered. Pt. Resting comfortably. [facility] 01-01-2023 Note Formatting of this n ote might be different from the original. Problem: Ortho - Goals Goal: Ortho - Sit to Stand Description: Pt will perform sit to/from stand transfer with no greater than sup assist with wheeled walker for improved ability to safely discharge to next level of care. Outcome: Ongoing Goal: Ortho - Ambulate 100 ft Description: Pt will ambulate 100 feet with stand by assist with wheeled walker NWBing or WBing as ordered to promote home navigation. Outcome: Ongoing Goal: Ortho - Knee ROM Description: Pt will demonstrate independence with donning/doffing the boot on the L LE Outcome: Ongoing [facility] 01-01-2023 Note Formatting of this n ote might be different from the original. Second assessment completed per policy.There are no noted changes from previous assessment unless otherwise documented. Patient is educated on pain management, fall precautions and infection prevention measures. He verbalizes understanding. Bed alarm is on and call light is within reach. [facility] 01-01-2023 Note Formatting of this n ote might be different from the original. Problem: Patient Care Overview Goal: Plan of Care Review Outcome: Ongoing Goal: Individualization & Mutuality Outcome: Met This Shift Problem: Pain, Acute (Adult) Goal: Identify Related Risk Factors and Signs and Symptoms Description: Related risk factors and signs and symptoms are identified upon initiation of Human Response Clinical Practice Guideline (CPG) Outcome: Ongoing Goal: Acceptable Pain Control/Comfort Level Description: Patient will demonstrate the desired outcomes by discharge/transition of care. Outcome: Ongoing Problem: Mobility, Physical Impaired (Adult) Goal: Identify Related Risk Factors and Signs and Symptoms Description: Related risk factors and signs and symptoms are identified upon initiation of Human Response Clinical Practice Guideline (CPG) Outcome: Ongoing Goal: Enhanced Mobility Skills Description: Patient will demonstrate the desired outcomes by discharge/transition of care. Outcome: Ongoing Goal: Enhanced Functionality Ability Description: Patient will demonstrate the desired outcomes by discharge/transition of care. Outcome: Ongoing [facility] 12-31-2022 Consult note Associated Order (s): IP CONSULT TO ADDICTION MEDICINE ADDICTION MEDICINE - INITIAL CONSULT Patient: Preston Carrasquillo, 1955, Physician: Jailyn Wilkes DO, Addiction Medicine Consult Team Reason for Consult: Assessment of alcohol and substance use Consulting Provider: Cristopher Moreira MD Encounter date: 12/31/2022 IMPRESSION/PLAN We attempted to see Lb for consultation today. However, after introduction of team, patient declines further interview at this time. Will attempt follow-up as able to build rapport with patient and support him in this hospital stay. If any acute needs arise please contact the Addiction Medicine Team via [facility] or pager. 1. The patient politely declined evaluation by the Addiction Medicine service. Therefore, I am unable to assess for the presence or severity of alcohol or substance use disorders. 2. Based on the concerns raised in the clinical consult, such a disorder (or harmful or hazardous use that does not rise to the threshold of a disorder) may or may not be present. 3. Potential for clinically significant withdrawal: Please remain vigilant for signs of clinically significant withdrawal. I recommend monitoring vital signs and clinical withdrawal assessments (CIWA) and offering symptomatic treatment per hospital protocol. 4. The following medications are often useful in treating symptoms of withdrawal: 1. Tylenol 650 - 975 mg PO q 6 h PRN for myalgia / bone pain 2. Ibuprofen 400 mg PO q 6 h PRN for myalgia / bone pain 3. Hydroxyzine 25 mg PO q 8 h PRN for anxiety 4. Loperamide 4 mg PO PRN diarrhea not to exceed 16 mg in 24 h 5. Dicyclomine 10-20 mg PO q 6 h PRN abdominal cramps 6. Zofran 4 mg PO q 6 h PRN nausea & vomiting 7. Melatonin 3 mg q HS scheduled for insomnia 8. Trazodone 50 mg q HS PRN for insomnia 5. Data review: I have reviewed all relevant clinical data including vital signs (within normal limits), clinical withdrawal assessments (CIWA 0), labs (AST, BUN, creatinine within normal limits), medications 6. Additional recommended work up: A urine drug screen should be considered only if results would serve the patient's best interest by informing their hospital care. Liver panel, viral hepatitis testing, STI testing may also be indicated depending on the clinical scenario. 7. Discharge planning: Given that the patient has declined our services, we are unable to assess the most appropriate ASAM level of care or assist and discharge planning. However, please feel free to reach out to us with additional questions or concerns. HISTORY OF PRESENT ILLNESS Preston Carrasquillo is a 67 y.o. male with history of restless legs syndrome, arthritis, hypertension, several recent orthopedic surgeries for left ankle infection admitted to [facility] with chief complaint of left ankle pain 12/30. He is seen today in consultation for evaluation of alcohol use. All history per chart review. Patient politely declined bedside assessment by the Addiction Medicine team. MEDICAL HISTORY Past Medical History: Diagnosis Date Ankle joint pain Essential hypertension, benign Flat foot Hernia, umbilical Hyperlipidemia Ingrown toenail Low back pain Male erectile dysfunction Pain in left shoulder Pain in right shoulder Pityriasis versicolor RLS (restless legs syndrome) Past Surgical History: Procedure Laterality Date INSERTION NEUROSTIMULATOR ELECTRODE SPINAL PERCUTANEOUS N/A 07/13/2021 Laterality: N/A; Surgeon: Tyrell Weinberg DO; Location: [facility] INSERTION REPLACEMENT NEUROSTIMULATOR GENERATOR SPINAL N/A 07/13/2021 Laterality: N/A; Surgeon: Tyrell Weinberg DO; Location: [facility] ANALYSIS/PROGRAMMING NEUROSTIMULATOR GENERATOR SYSTEM N/A 07/13/2021 Laterality: N/A; Surgeon: Tyrell Weinberg DO; Location: [facility] ARTHROSCOPY SHOULDER W/ ROTATOR CUFF REPAIR Left 10/27/2017 Laterality: Left; Surgeon: Majo Phan MD; Location: [facility] ARTHROSCOPY SHOULDER W/ SUBACROMIAL DECOMPRESSION/ACROMIOPLASTY ADD-ON Left 10/27/2017 Laterality: Left; Surgeon: Majo Phan MD; Location: [facility]IOP ARTHROSCOPY SHOULDER W/ DEBRIDEMENT Left 10/27/2017 Laterality: Left; Surgeon: Majo Phan MD; Location: [facility] PERIOP HERNIA REPAIR SOCIAL HISTORY Unable to obtain additional social history. Patient declined to be interviewed. Social History Tobacco Use Smoking status: Never Smokeless tobacco: Never Substance Use Topics Alcohol use: Yes Alcohol/week: 35.0 standard drinks Types: 35 Cans of beer per week Comment: 5 daily Social History Substance and Sexual Activity Drug Use Never FAMILY HISTORY Unable to obtain additional social history. Patient declined to be interviewed. Family history is unknown by patient. MEDICATIONS Prior to Admission Medications Prescriptions Last Dose Informant Patient Reported? Taking? Clobetasol Propionate 0.025 % Cream More than a month Yes No Sig: Apply 1 Application topically daily. Meloxicam 15 MG tablet Past Week Yes Yes Sig: Take 1 tablet by mouth as needed. acetaminophen 500 MG tablet 12/27/2022 Yes No Sig: Take 2 tablets by mouth every 6 hours as needed. baclofen 10 MG tablet Yes No Sig: Take 1 tablet by mouth 2 times daily as needed. baclofen 20 MG tablet 12/29/2022 Yes Yes Sig: Take 1 tablet by mouth daily every morning. lidocaine 5 % Patch patch Past Week Yes Yes Sig: Place 1 patch on skin every 24 hours. Max of 12 hours of application then remove. lisinopril 10 MG tablet 12/29/2022 Yes Yes Sig: Take 2.5 mg by mouth daily every morning. rOPINIRole 1 MG tablet 12/30/2022 Yes Yes Sig: Take 1 tablet by mouth 2 times daily. traMADol 50 MG tablet 12/29/2022 Yes Yes Sig: Take 1 tablet by mouth. traZODone 100 MG tablet Past Week Yes Yes Sig: Take 1 tablet by mouth at bedtime. Facility-Administered Medications: None ALLERGIES No Known Allergies REVIEW OF SYSTEMS Unable to obtain ROS. Patient declined to be interviewed. PHYSICAL EXAM Vitals: 12/31/22 1523 BP: 151/68 Pulse: 69 Resp: 18 Temp: 97.9 F (36.6 C) O2 Device: room air (12/31/22 1555) Flow (L/min): 6 (12/30/22 1708) Psych (Mental Status Exam): Sensorium: alert Appearance: appropriate Speech: normal rate, rhythm, and volume Mood: Unable to assess Affect: blunted Orientation: Unable to assess Thought Process: Unable to assess Suicidal Ideation: Unable to assess Homicidal Ideation: Unable to assess Hallucination: Unable to assess Delusion: Unable to assess Memory: Unable to assess Insight/Judgment: Unable to assess DATA REVIEW WBC/Hgb/Hct/Plts: --/--/--/261 (12/31 506) Bun/Creat/Cl/CO2/Glucose: --/0.62/--/--/-- (12/31 506) Body mass index is 25.37 kg/m . Signed, Jailyn Wilkes DO [facility] Consult Service Pager [phone] Work Phone: 12-31-2022 Consult note Associated Order (s): IP CONSULT TO INFECTIOUS DISEASE [facility] INFECTIOUS DISEASE CONSULTATION REQUESTING PHYSICIAN: Cristopher Moreira MD REASON FOR CONSULTATION: Chronic osteomyelitis of left ankle - post op, bone biopsy; please consider picc and abx if positive HISTORY OF PRESENT ILLNESS: Preston Carrasquillo is a 67 y.o. male with daily ETOH use, HTN, HLD, restless leg syndrome, chronic low back pain s/p spinal cord stimulator placement (8/31/21) and prior left ankle septic arthritis due to MSSA with prior MSSA bacteremia who is admitted after undergoing L ankle debridement and placement of antibiotics spacer on 12/30. He reports he developed some L foot pain this spring/summer which he attributed to dropped arch. He underwent a needle therapy in May where a large needle was placed in the joint, some blood was removed and filtered and then the injected back. He says initially his foot pain improved but he then developed L ankle pain and swelling and presented to [facility] on 06/20/22 and had an ankle aspiration showing WBC 93,000, PMNs 96%. He was taken to the OR on 06/24/22 for I&D of the L ankle and debridement of medial ankle and operative cultures grew MSSA. He also had blood cultures obtained which also grew MSSA. He was treated with IV vanco during admission and discharged with PO doxy x 14 days. The Doxy course was then extended another 14 days as an outpatient. He says the ankle initially did better and he was able to walk for a few weeks without crutches but then his foot pain became worse. He had an admission in Jul with altered mental status and agitation but does not appear the infection was addressed at that time. He continued to have L ankle pain so was again taken to the OR on 11/25/21 for L ankle arthroscopic I&D and debridement and cultures again grew MSSA. He was treated with IV ceftriaxone 1gm Q24 hours x 14 days. He initially has some improvement in the pain following surgery and antibiotics but the pain has again worsened so he was seen by Dr. Moreira for a second opinion and was taken to the OR on 12/30 for L ankle extensive debridement and placement of antibiotic spacer. Operative note describes abundant thickened synovitis in ankle and subtalar joints with severe cartilage wear; no gross purulence He reports doing well following surgery. Denies fever or chills or other systemic symptoms. He has a spinal stimulator but denies any pain or swelling associated with it. He denies any recent antibiotics since completing IV ceftriaxone. REVIEW OF SYSTEMS: Review of Systems - (all positives in bold, otherwise negative) Gen: fever, chills, weight loss, fatigue, night sweats HEENT: visual changes, hearing loss Cardiac: chest pain Resp: shortness of breath, cough, sputum GI: nausea, vomiting, diarrhea, abdominal pain : urinary frequency, urgency, dysuria, MSk: back pain, joint pain, swelling SKIN: rash, redness Neuro: headache, numbness EXPOSURE HISTORY: Denies any injection drug use Lives with Drinks ETOH daily (beer) PAST MEDICAL HISTORY: Past Medical History: Diagnosis Date Ankle joint pain Essential hypertension, benign Flat foot Hernia, umbilical Hyperlipidemia Ingrown toenail Low back pain Male erectile dysfunction Pain in left shoulder Pain in right shoulder Pityriasis versicolor RLS (restless legs syndrome) PAST SURGICAL HISTORY: Past Surgical History: Procedure Laterality Date INSERTION NEUROSTIMULATOR ELECTRODE SPINAL PERCUTANEOUS N/A 07/13/2021 Laterality: N/A; Surgeon: yTrell Weinberg DO; Location: [facility] INSERTION REPLACEMENT NEUROSTIMULATOR GENERATOR SPINAL N/A 07/13/2021 Laterality: N/A; Surgeon: Tyrell Weinberg DO; Location: [facility] ANALYSIS/PROGRAMMING NEUROSTIMULATOR GENERATOR SYSTEM N/A 07/13/2021 Laterality: N/A; Surgeon: Tyrell Weinberg DO; Location: [facility] ARTHROSCOPY SHOULDER W/ ROTATOR CUFF REPAIR Left 10/27/2017 Laterality: Left; Surgeon: Majo Phan MD; Location: [facility]IOP ARTHROSCOPY SHOULDER W/ SUBACROMIAL DECOMPRESSION/ACROMIOPLASTY ADD-ON Left 10/27/2017 Laterality: Left; Surgeon: Majo Phan MD; Location: [facility] ARTHROSCOPY SHOULDER W/ DEBRIDEMENT Left 10/27/2017 Laterality: Left; Surgeon: Majo Phan MD; Location: [facility] PERIOP HERNIA REPAIR FAMILY HISTORY: Family History Family history unknown: Yes SOCIAL/EXPOSURE HISTORY: Social History Socioeconomic History Marital status: Tobacco Use Smoking status: Never Smokeless tobacco: Never Vaping Use Vaping Use: Never used Substance and Sexual Activity Alcohol use: Yes Alcohol/week: 35.0 standard drinks Types: 35 Cans of beer per week Comment: 5 daily Drug use: Never ALLERGIES: No Known Allergies MEDICATIONS reviewed: Acetaminophen 650 mg Oral Q6H Ascorbic acid 250 mg Oral BID baclofen 20 mg Oral QAM cholecalciferol 800 Units Oral Daily Docusate 100 mg Oral BID enoxaparin 40 mg Subcutaneous Daily Folic acid 1 mg Oral Daily Or Folic acid 1 mg Per NG tube Daily Or Folic acid 1 mg Intravenous Daily Gabapentin 100 mg Oral TID Lisinopril 2.5 mg Oral QAM Multi-Vitamins 1 tablet Per NG tube Daily Or Multi-Vitamins 1 tablet Oral Daily Naproxen 500 mg Oral BID rOPINIRole 2 mg Oral BID Thiamine 100 mg Oral Q8H Or Thiamine 100 mg Per NG tube Q8H Or thiamine (B-1) injection 100 mg Intravenous Q8H [START ON 01/04/2023] Thiamine 100 mg Oral Daily traZODone 100 mg Oral QHS Vancomycin (VANCOCIN) IVPB 15 mg/kg (Adjusted) Intravenous Q12HNS PHYSICAL EXAM: Vitals: BP 137/65 (BP Location: Right arm, BP Position: Sitting) Pulse 74 Temp 97.3 F (36.3 C) (Oral) Resp 18 Ht 1.702 m (5' 7 ) Wt 73.5 kg (162 lb) SpO2 93% BMI 25.37 kg/m Smoking Status Never Gen: No Acute Distress, Alert and appropriate, sitting up in bed HEENT: normal sclera and conjunctiva, O/P clear, MMM Neck: supple, no cervical lymphadenopathy CV: RRR + systolic murmur Lungs: CTA B Abd: BS present, soft, NT, ND Back: L lower back spinal stimulator without surrounding erythema, warmth or swelling Ext: Dressing over L ankle, no surrounding erythema, warmth of swelling Skin: No rashes Neuro: Alert and appropriate, No focal neuro deficits LABS: CBC Lab Results Component Value Date WBC 7.77 12/30/2022 HGB 14.5 12/30/2022 HCT 43.7 12/30/2022 PLATELET 261 12/31/2022 MCV 92.0 12/30/2022 EDIF Lab Results Component Value Date RBCDISTRIBU 14.9 (H) 12/30/2022 PLATELET 261 12/31/2022 MPV 10.2 12/31/2022 Lab Results Component Value Date SODIUM 137 12/30/2022 POTASSIUM 4.0 12/30/2022 CHLORIDE 104 12/30/2022 CO2 25 12/30/2022 BUN 14 12/30/2022 CREATSERUM 0.62 (L) 12/31/2022 Lab Results Component Value Date ALT 15 12/30/2022 AST 15 12/30/2022 ALKPHOS 66 12/30/2022 BILITOTAL 0.6 12/30/2022 Lab Results Component Value Date SEDRATE 20 (H) 12/30/2022 Lab Results Component Value Date CRP 2.12 12/30/2022 Microbiology: 12/30 Operative cultures - pending Outside Micro: 06/24/22 Bursa and ankle Cx - MSSA 06/24 Bld Cx - MSSA 08/09 Bld Cx - Micrococcus 11/25/22 Ankle Cx - MSSA Radiology: 12/22 L ankle X-ray: Tibiotalar osteoarthritis with associated osteochondral irregularity of the tibial plafond and talar dome. Mild talar inversion with features predisposing to lateral hindfoot impingement. Advanced osseous demineralization. Remote ligamentous trauma. 10/13/22 CT L ankle: 1. Diffuse [id number] degenerative changes as detailed above. 2. Large tibiotalar joint effusion, the sterility of which is indeterminate. Probable small to moderate amount of fluid in association with the medial flexor tendons. Large amount of fluid in association with the peroneal tendons. Findings likely represent underlying tenosynovitis with sterility indeterminate. 3. Diffuse osteopenia. No acute fracture or dislocation. No aggressive osseous destruction. 4. Atherosclerotic calcification of the vasculature. 5. Small suprapatellar joint effusion. 6. [id number] edema in the subcutaneous fat at the dorsal/lateral aspect of the foot. 06/23/22 CT ANKLE LEFT W CONTRAST 1. Large peripherally enhancing subtalar and tibiotalar joint effusions in communication with a large amount of fluid within and rim enhancement of the medial flexor and peroneal tendon sheaths. The sterility of this fluid is indeterminate. Findings raise concern for septic joint effusions and infectious tenosynovitis involving the medial flexor and peroneal tendons. 2. Moderate to severe cellulitis of the foot and ankle. 3. No aggressive osseous destruction. 4. Diffuse osteopenia and degenerative changes as detailed above. 5. Evidence of remote injury to the medial and lateral malleolus. 6. Mild plantar calcaneal spur. No acute fracture or dislocation. ASSESSMENT: Preston Carrasquillo is a 67 y.o. male with daily ETOH use, HTN, HLD, restless leg syndrome, chronic low back pain s/p spinal cord stimulator placement (07/13/21) and prior left ankle septic arthritis due to MSSA with prior MSSA bacteremia who is admitted after undergoing L ankle debridement and placement of antibiotics spacer on 12/30. 1. L ankle septic arthritis and osteomyelitis due to MSSA - Symptoms started in Jun after he underwent an injection procedure. Had 2 prior debridements which both grew MSSA and now s/p L ankle debridement and placement of antibiotics spacer on 12/30, operative cultures pending. 2. H/o MSSA bacteremia - had MSSA bacteremia in Jun 2022 that was treated with PO doxy x 4 weeks. Noted to have heart murmur on exam but no other symptoms 3. Chronic back pain with spinal cord stimulator 4. Estimated Creatinine Clearance: 107 mL/min (A) (by C-G formula based on SCr of 0.62 mg/dL (L)). RECOMMENDATIONS: Diagnostics: - Follow-up pending operative cultures - Check blood cultures x 2 - Check TTE given heart murmur and prior MSSA bacteremia Therapeutics: - Stop IV vanco - Start IV cefazolin 3gmQ12 hours given as a continuous infusion. - Anticipate he will need 6 weeks of of IV antibiotics and PICC line but final antibiotic plan pending final culture and imaging results [facility] consult team will continue to follow. Please call with questions. Zenaida Street MD Infectious Diseases, Pager #[phone] [facility] Work Phone: 12-30-2022 Note Formatting of this n ote might be different from the original. Problem: Pain, Acute (Adult) Goal: Identify Related Risk Factors and Signs and Symptoms Description: Related risk factors and signs and symptoms are identified upon initiation of Human Response Clinical Practice Guideline (CPG) Outcome: Ongoing Goal: Acceptable Pain Control/Comfort Level Description: Patient will demonstrate the desired outcomes by discharge/transition of care. Outcome: Ongoing [facility] 12-30-2022 Note Formatting of this n ote might be different from the original. Problem: Patient Care Overview Goal: Plan of Care Review Outcome: Ongoing Goal: Individualization & Mutuality Outcome: Ongoing Goal: Discharge Needs Assessment Outcome: Ongoing Goal: Interdisciplinary Rounds/Family Conf Outcome: Ongoing Problem: Pain, Acute (Adult) Goal: Identify Related Risk Factors and Signs and Symptoms Description: Related risk factors and signs and symptoms are identified upon initiation of Human Response Clinical Practice Guideline (CPG) Outcome: Ongoing Goal: Acceptable Pain Control/Comfort Level Description: Patient will demonstrate the desired outcomes by discharge/transition of care. Outcome: Ongoing Problem: Surgery Nonspecified (Adult) Goal: Signs and Symptoms of Listed Potential Problems Will be Absent, Minimized or Managed (Surgery Nonspecified) Description: Signs and symptoms of listed potential problems will be absent, minimized or managed by discharge/transition of care (reference Surgery Nonspecified (Adult) CPG). Outcome: Ongoing Goal: Anesthesia/Sedation Recovery Outcome: Progressing Toward Goal [facility] 12-30-2022 Note Formatting of this n ote might be different from the original. Pt arrived to room on transport cart. Pt was moved over to our bed via 3 person assist.Admission questions were done. Assessment completed per policy. Pt's vital signs stable, room air. Pt educated on the use of the calls lights, and all alarms. All questions were answered. [facility] 12-30-2022 Note Formatting of this n ote might be different from the original. On admission to [facility], from PACU a dual RN initial assessment of skin condition was performed by Jamie Arciniega RN and Kash Oropeza. Skin Assessment: Skin within defined limits:Yes LDA Added:No Jamie Arciniega RN [facility] 12-30-2022 Note Formatting of this n ote might be different from the original. Date of Procedure: 30Dec2022 Patient: Preston Carrasquillo ( ) Surgeon: Cristopher Moreira MD Lumber Stacker Operator: Damaso Dill MD; CLAUDIA Malik Preoperative Diagnosis: 1. Chronic Left ankle pain 2. Left ankle chronic osteomyelitis 3. Left ankle septic arthritis 4. Left subtalar septic arthritis Postoperative Diagnosis: 1. Chronic Left ankle pain 2. Left ankle anterior impingement Procedure: 1. Left ankle arthroscopy with extensive debridement and synovectomy 2. Left subtalar arthroscopy with extensive debridement and synovectomy 3. Left ankle arthrotomy and excisional debridement with craterization of distal tibia for osteomyelitis 4. Left ankle and subtalar joint placement of antibiotic cement Anesthesia: LMA, regional block Estimated Blood Loss: 30ml Findings: bloody synovial fluid without gross purulence; abundant thickened synovitis in the ankle and subtalar joints; severe cartilage wear s/p septic arthritis Implants: Stimulan antibiotic cement (5cc) mixed with 1g vancomycin/1.2g tobramycin Specimen: 1. Left ankle joint synovial aspirate (2.5cc bloody fluid, no purulence) for cell count and culture 2. Left ankle joint synovium and bone fragments for culture 3. Left subtalar joint synovium and bone fragments for culture 4. Left distal tibia bone for pathology Drains: 10Fr hemovac Left ankle Complications: none apparent Indications: Preston Carrasquillo is a 67 year old male who presented with severe erosive changes of the Left ankle and subtalar joint due to chronic septic arthritis. He had insidious onset of pain and medial ankle swelling in and underwent ankle joint washout and medial ankle abscess debridement with excision of the posterior tibial tendon 06/24/22; cultures grew MSSA and he was treated with doxycycline for 2 weeks. Overall improved but did have ongoing pain. Pain acutely worsened again in November 2022 and he was taken to the OR on 11/25/22 for arthroscopic washout of the left ankle; cultures grew MSSA again and he was treated with Rocephin daily infusion for 2 weeks. He has had worsening pain and deformity with XR/MRI showing erosive changes of the ankle and subtalar joints and abundant synovitis and joint effusion. He has not been on any antibiotics for >2 weeks. The plan is for ankle and subtalar arthroscopy and debridement with bone biopsy and culture, and placement of antibiotic cement. Once cleared of infection we may plan for staged reconstruction with tibiotalocalcaneal fusion. The diagnosis and treatment plan were discussed at length. Surgical specifics; associated risks and benefits; treatment alternatives; outcome expectations; and rehabilitation plan were discussed thoroughly. Risks reviewed included but were not limited to pain, bleeding, infection, decreased range of motion, weakness, sensitive/unsightly scar, neurovascular injury, poor outcome, progression of ankle arthritis, and need for subsequent surgeries. The patient expressed understanding, agreed, and wished to proceed. Description of Operation: The patient was met and identified in the preoperative holding area. Informed consent was verified and the surgical site was marked with a surgical pen. A regional block was administered by the anesthesia team. The patient was then transported to the operating room and placed supine on the operating table with all extremities padded appropriately. A team huddle was performed per protocol. Anesthesia was induced and by the anesthesia provider. Perioperatvie antibiotics were held until cultures were taken. A calf tourniquet was then applied, and the patient was positioned with small padded bump under the hip. The extremity was prepped and draped in sterile fashion and a surgical timeout was performed per protocol to again verify correct patient, surgical site and laterality, procedure, and appropriate instrumentation and implants. Attention was first turned to the ankle joint aspiration. An 18g needle was inserted at the medial joint line and @2.5cc of bloody, non-purulent synovial fluid was aspirated and sent to the lab for cell count and culture. Next attention was turned to the ankle arthroscopy and extensive debridement. The limb was exsanguinated with an esmarch dressing and calf tourniquet inflated to 250mmHg. 5cc of a 50/50 mixture of 0.5% Marcaine and 1% lidocaine with epinephrine was injected into the ankle joint and about the portal sites. Standard anteromedial and anterolateral ankle arthroscopic portals were established with an 11 blade and blunt fabiola and spread technique with care to protect the saphenous vein and superficial peroneal nerve. Diagnostic arthroscopy was performed with the following findings. 1. Abundant thickened synovitis throughout the joint without gross purulence. 2. Severe erosive bipolar tibiotalar cartilage wear with areas of full thickness cartilage loss. 3. Multiple small loose bodies. Extensive debridement of the synovitis was performed with the arthroscopic shaver to debride the medial and lateral gutters and anterior recess. Chondroplasty was performed to remove some large unstable cartilage flaps and loose bodies. Pieces of synovium and bone fragments were taken with a pituitary rongeur and sent for culture. The joint was washed out with >3L saline. Next attention was turned to the subtalar arthroscopy and extensive debridement. The portals were established with one at the tip of the distal fibula and one 2cm anterior just above the anterior process. Diagnostic arthroscopy was performed with the following findings. 1. Abundant thickened synovitis within the sinus tarsi without gross purulence. 2. Mild erosive changes at the anterior aspect of the posterior facet of the subtalar joint. Extensive debridement of the synovitis was performed with the arthroscopic shaver to debride the sinus tarsi and lateral gutter. Pieces of synovium and bone fragments were taken with a pituitary rongeur and sent for culture. The joint was irrigated with saline. Next we completed the excisional debridement and craterization of the distal tibia. A 4cm anteromedial arthrotomy incision was made just medial to the tibialis anterior. Care was taken to protect the saphenous bundle and tibialis anterior tendon. Hemostasis was maintained with electrocautery. The ankle joint capsule was incised. Sharp excisional debridement of synovium, periosteum and bone was performed with rongeur and chisel. Using a chisel we took a segment of bone off the anterior plafond and sent the bone fragment for pathology. The joint was further lavaged with saline. Hemostasis was maintained. The tourniquet was deflated after 50 minutes and hemostasis was maintained. Next was placed the antibiotic cement. We made beads out of Stimulan antibiotic cement (5cc) mixed with 1g vancomycin/1.2g tobramycin and placed them across the ankle joint and then into the sinus tarsi/subtalar joint. A 10Fr hemovac drain was placed in the ankle joint. The wounds were closed with 3.0 monocryl and 3.0 ethilon sutures. Sterile dressings and a CAM boot were applied. The patient tolerated the procedure well with no apparent complications, was awakened from anesthetic in the operating room, and transported to the PACU in stable condition. The patient will be admitted for Infectious Disease consultation. [place] plan for 6 weeks IV antibiotics and possible staged tibiotalocalcaneal arthrodeisis. Followup in 2 weeks for suture removal, and will continue on Aspirin for DVT prophylaxis while immobilized. Continue CAM boot immobilization, may weightbear as tolerated. [facility] 12-30-2022 Note Formatting of this n ote might be different from the original. Orthopaedic Surgery Plan of Care Note Preston Carrasquillo is a 67 y.o. male who is status post arthroscopic I&D of L ankle and subtalar joint with placement of stimulan on 12/30/[address] Moreira Please release sign and held orders upon arrival to the floor Activity: PT/OT, CAM boot to the LLE Weight Bearing Status: NWB LLE, okay to WB for transfers Pain: Multimodal, PO with IV breakthrough Diet: Advance as tolerated Abx: Empiric vancomycin, tailor pending culture results and ID consult Cultures: FU cultures DVT PPx: SCD's, LVX while inpatient starting POD1 Dressing: Dry dressing, maintain until POD2. Reinforce as needed. Drain: JPx1, record output q8hr Imaging: No further imaging required at this time Disposition: Pending cultures results, ID consult for antibiotic recommendations, PT/OT, pain control Follow-Up: Return to clinic in [address] Moreira for a wound check. Please page the field artillery fire control man orthopaedic surgery resident with any questions. Damaso Dill MD Orthopaedic Surgery Pager: #[phone] [facility] 12-30-2022 Note Formatting of this n ote is different from the original. Preston Carrasquillo ([id number]) PRE OPERATIVE DIAGNOSIS Septic arthritis of left ankle [M00.9] Chronic osteomyelitis of left ankle [M86.672] POST OPERATIVE DIAGNOSIS Post-Op Diagnosis Codes: * Septic arthritis of left ankle [M00.9] * Chronic osteomyelitis of left ankle [M86.672] PROCEDURE PERFORMED Procedure(s) (LRB): ARTHROSCOPY ANKLE W/ EXTENSIVE DEBRIDEMENT (Left) I&D BONE CORTEX ANKLE LEG (Left) INSERTION IMPLANT NONBIODEGRADABLE DRUG DELIVERY (Left) ARTHROSCOPY SUBTALAR JOINT W/ DEBRIDEMENT (Left) PRIMARY CLOSURE Yes INTRAOPERATIVE FINDINGS abundant thickened synovitis in ankle and subtalar joints with severe cartilage wear; no gross purulence SURGEON Surgeon(s) and Role: * Cristopher Moreira MD - Primary ANESTHESIOLOGIST Anesthesiologist: Kimberly Murphy MD [place]: Aubree Plasencia APRN-[employer] SURGICAL STAFF Billing Spec: Vanessa Wilkes RN Physician Lumber Stacker Operator: Todd Martinez PA-C Relief Billing Spec: Koko Knox RN Scrub Person: Lorna Cuadra Resident Assisting: Damaso Dill MD COMPLICATIONS None ESTIMATED BLOOD LOSS 30 ml SPECIMENS Microbiology specimen sent ID Type Source Tests Collected by Time Destination 1 : Left Tibia Permanent BONE SURG PATH REQUEST Cristopher Moreira MD 12/30/2022 1643 A : Left Ank. syn. fluid for cell count and cult. Other SYNOVIAL FLUID: LEFT ANKLE FUNGUS CULTURE, ACID FAST CULTURE, ANAEROBE CULTURE, BACTERIAL CULTURE AND DIRECT SMEAR, LESION, TISSUE, DEVICE Cristopher Moreira MD 12/30/2022 1553 B : Left Ankle Culture Tissue TISSUE FUNGUS CULTURE, ACID FAST CULTURE, TISSUE, ANAEROBE CULTURE, BACTERIAL CULTURE AND DIRECT SMEAR, LESION, TISSUE, DEVICE Cristopher Moreira MD 12/30/2022 1642 C : Left Subtalar Culture Tissue TISSUE FUNGUS CULTURE, ACID FAST CULTURE, TISSUE, ANAEROBE CULTURE, BACTERIAL CULTURE AND DIRECT SMEAR, LESION, TISSUE, DEVICE Cristopher Moreira MD 12/30/2022 1643 Cristopher Moreira MD December 30, 2022 4:57 PM [facility] 12-30-2022 Nurse Surgical operation note 1627 Family updated. [facility] 12-30-2022 Nurse Note 1627 Family updated. ISBAR handoff procedure completed with Vanessa surgery RN. Patient stable, no distress, transferred to surgery with OR personnel. documented in this encounter [facility] 12-30-2022 Nurse Surgical operation note ISBAR handoff procedure completed with Vanessa surgery RN. Patient stable, no distress, transferred to surgery with OR personnel. [facility] 12-30-2022 Note Formatting of this n ote might be different from the original. I certify that this patient requires inpatient services at this time. I anticipate the expected length of stay will include at least two midnights. Current treatment plan includes surgical debridement, IV antibiotics, Infectious Disease consult. Plans for post hospitalization care will be discharge to home with home health. [facility] 12-30-2022 Attending History and physical note I have examined the patient and reviewed the previous H&P completed on date 12/22/22 and there are no changes. Cristopher Moreira MD, 12/30/2022, 12:07 PM. Source Note - Cristopher Moreira MD - 12/22/2022 1:15 PM EST [facility] Date of Visit: 12/22/2022 Chief Complaint: Chief Complaint Patient presents with Left Ankle - Pain [id number] c/o left ankle pain. Hx ankle infections, I&D surgery June 2022,surgery for recent septic arthritis 11/25/22- he was supposed to have a fusion vs rebuild but they found infection instead. Pt is wanting 2nd opinion on surgery Tx: tramadol, baclofen, meloxicam. Recent MRI images in [place] History of Present Illness: Preston Carrasquillo is a 67 y.o. male referred by Self, Self who presents today complaining of L ankle pain. The patient presented to [facility] on 06/20/22 with chronic ankle pain and an inversion injury. He was DCed and sent to outpatient FU. He presented again on 06/23/22 with continued worsening pain. His L ankle was aspirated: WBC 93,000, PMNs 96%. He was taken to the OR on 06/24/22 for I&D of the L ankle and debridement of medial ankle. Ankle cultures grew GPC, blood cultures grew Staph aureus He was treated with PO ABX x 4 weeks. Unfortunately he developed posterior tibial tendon dysfunction and subsequent repeat SA of the L ankle. He was taken to the OR on 11/25/21 for L ankle arthroscopic I&D and debridement by Dr. Saini. Cultures again grew Staph aureus. He was placed on IV Rocephin x 2 weeks and is not on PO ABX. The patient is coming in today for a second opinion regarding treatment options for his L ankle. His biggest concern is his chronic pain that he is feeling in his left ankle. This is preventing him from being able to ambulate and undergo daily activities. He denies any nausea, vomiting, fever, chills, chest pain, shortness of breath. He denies any systemic signs of infection currently. He was inquiring about surgical options to assist with pain control. His goal is to be able to ambulate with decreased pain. He uses crutches current for WBAT. He had recent lab work done however we are unable to access the results. Per the patient, he called the office and he said they told him it was normal. Review of Systems: General ROS: negative for - chills, fever or night sweats Respiratory ROS: no cough, shortness of breath, or wheezing Cardiovascular ROS: no chest pain or dyspnea on exertion Musculoskeletal ROS: positive for - joint pain as above. Neurological ROS: no TIA or stroke symptoms Skin/ integumentary ROS: no generalized rashes, no generalized erythema, no open lesions Pertinent positives reviewed in chart, otherwise negative to a complete review of systems. Medications: has a current medication list which includes the following prescription(s): acetaminophen, baclofen, baclofen, clobetasol propionate, lidocaine, lisinopril, meloxicam, ropinirole, tramadol, and trazodone. Allergies: has No Known Allergies. PFSH: Past Medical History: has a past medical history of Ankle joint pain, Essential hypertension, benign, Flat foot, Hernia, umbilical, Hyperlipidemia, Ingrown toenail, Low back pain, Male erectile dysfunction, Pain in left shoulder, Pain in right shoulder, Pityriasis versicolor, and RLS (restless legs syndrome). Past Surgical History: has a past surgical history that includes arthroscopy shoulder w/ rotator cuff repair (Left, 10/27/2017); arthroscopy shoulder w/ subacromial decompression/acromioplasty add-on (Left, 10/27/2017); arthroscopy shoulder w/ debridement (Left, 10/27/2017); hernia repair; insertion neurostimulator electrode spinal percutaneous (N/A, 07/13/2021); insertion replacement neurostimulator generator spinal (N/A, 07/13/2021); and analysis/programming neurostimulator generator system (N/A, 07/13/2021). Family History: no known history of clotting disorders Social History: reviewed in chart. reports that he has never smoked. He has never used smokeless tobacco.. Occupation: Retired, [place] Physical Examination: GENERAL: alert and oriented x3; alert, well-appearing, no acute distress Wt Readings from Last 1 Encounters: 09/15/21 73.9 kg (163 lb) , There is no height or weight on file to calculate BMI. HEAD: Normocephalic, atraumatic. CHEST: Equal chest rise bilaterally. CARDIOVASCULAR: Warm and well perfused extremities MUSCULOSKELETAL: Gait: deferred SKIN: no erythema/cellulitis; no signs of obvious infection. Inspection/ Palpation: - Well healed prior surgical incisions, chronic deformity to the ankle; normal callosities, pes planus Left foot and ankle: swelling- ;Yes, describe: chronic along the medial aspect of the ankle; ecchymosis- No; there is mild tenderness along the anterior joint line - no ttp @medial/lateral malleolus - no ttp @peroneal/Achilles/PT tendons - no ttp @medial/lateral shoulder of talus Range of Motion: - overall painless passive ankle ROM - supple subtalar motion - pain with resisted eversion- No; pain with resisted inversion- KISHAN due to PTT removal during prior surgery - R ankle: DF- 15 PF- 50; L ankle: DF- 15 PF- 50 Stability: anterior drawer- No Muscle Strength and Tone: intact strength to toe flex/ ext, ankle df/ pf/ ev/ inv NEUROVASCULAR: no focal deficits; sensation intact and symmetric to light touch in sural/ saph/ deep per/ sup per/ tibial n distributions; brisk cap refill with palp DP pulse bilat -no tinels Radiology: CT ANKLE LEFT W CONTRAST (06/23/2022) 1. Large peripherally enhancing subtalar and tibiotalar joint effusions in communication with a large amount of fluid within and rim enhancement of the medial flexor and peroneal tendon sheaths. The sterility of this fluid is indeterminate. Findings raise concern for septic joint effusions and infectious tenosynovitis involving the medial flexor and peroneal tendons. 2. Moderate to severe cellulitis of the foot and ankle. 3. No aggressive osseous destruction. 4. Diffuse osteopenia and degenerative changes as detailed above. 5. Evidence of remote injury to the medial and lateral malleolus. 6. Mild plantar calcaneal spur. No acute fracture or dislocation. MRI of the Left ankle (09/30/22, 12/12/22) were independently reviewed and demonstrate progressive erosive changes involving the ankle and subtalar joints with large effusion Radiographs: 3 weightbearing views of the Left ankle (12/22/22) were independently reviewed and demonstrate osteopenia, flatfoot deformity, severe hindfoot valgus with 10deg valgus tibiotalar tilt and erosive changes c/w known recent septic ankle and subtalar arthritis Assessment/Plan: ICD-10-CM 1. Staphylococcal arthritis of left ankle M00.072 XR ANKLE LEFT 3+ VIEWS CASE REQUEST - SURGERY 2. 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 Chronic osteomyelitis of left ankle M86.672 CASE REQUEST - SURGERY CBC, EDIF, PLATELET SEDIMENTATION RATE, AUTOMATED C REACTIVE PROTEIN COMPREHENSIVE METABOLIC PANEL PT,INR,PTT VITAMIN D (25-HYDROXY,TOTAL) Preston has severe erosive changes of the ankle and subtalar due to chronic septic arthritis. - plan for Left ankle scope and bone biopsy - discussed with Dr. Lobato (Infectious Disease)- will send joint aspirate, bone culture, and bone pathology - check labs today - schedule at [facility] and admit postop for ID consult - if cultures are positive will need 6 weeks IV abx - if cultures are negative will plan for staged tibiotalocalcaneal fusion - case request entered and consent completed today The diagnosis and treatment plan were discussed at length. Surgical specifics; associated risks and benefits; treatment alternatives; outcome expectations; and rehabilitation plan were discussed thoroughly. Risks reviewed included but were not limited to pain, bleeding, infection, decreased range of motion, weakness, sensitive/unsightly scar, neurovascular injury, poor outcome, and need for subsequent surgeries. The patient expressed understanding, agrees, and wishes to proceed. The patient understands the plan and all questions were answered. Abbie Thomas MD I interviewed and examined the patient with the resident. I personally reviewed the radiographic studies. The information in this document, originally created by the resident for me, and edited by myself, accurately reflects the services I personally performed and the decisions I made. I have reviewed and edited the note as necessary and approve this document for accuracy. Cristopher Moreira MD [facility] 12-30-2022 History and physical note I have examined the patient and reviewed the previous H&P completed on date 12/22/22 and there are no changes. Cristopher Moreira MD, 12/30/2022, 12:07 PM. Source Note - Cristopher Moreira MD - 12/22/2022 1:15 PM EST [facility] Date of Visit: 12/22/2022 Chief Complaint: Chief Complaint Patient presents with Left Ankle - Pain [id number] c/o left ankle pain. Hx ankle infections, I&D surgery June 2022,surgery for recent septic arthritis 11/25/22- he was supposed to have a fusion vs rebuild but they found infection instead. Pt is wanting 2nd opinion on surgery Tx: tramadol, baclofen, meloxicam. Recent MRI images in [place] History of Present Illness: Preston Carrasquillo is a 67 y.o. male referred by Self, Self who presents today complaining of L ankle pain. The patient presented to [facility] on 06/20/22 with chronic ankle pain and an inversion injury. He was DCed and sent to outpatient FU. He presented again on 06/23/22 with continued worsening pain. His L ankle was aspirated: WBC 93,000, PMNs 96%. He was taken to the OR on 06/24/22 for I&D of the L ankle and debridement of medial ankle. Ankle cultures grew GPC, blood cultures grew Staph aureus He was treated with PO ABX x 4 weeks. Unfortunately he developed posterior tibial tendon dysfunction and subsequent repeat SA of the L ankle. He was taken to the OR on 11/25/21 for L ankle arthroscopic I&D and debridement by Dr. Saini. Cultures again grew Staph aureus. He was placed on IV Rocephin x 2 weeks and is not on PO ABX. The patient is coming in today for a second opinion regarding treatment options for his L ankle. His biggest concern is his chronic pain that he is feeling in his left ankle. This is preventing him from being able to ambulate and undergo daily activities. He denies any nausea, vomiting, fever, chills, chest pain, shortness of breath. He denies any systemic signs of infection currently. He was inquiring about surgical options to assist with pain control. His goal is to be able to ambulate with decreased pain. He uses crutches current for WBAT. He had recent lab work done however we are unable to access the results. Per the patient, he called the office and he said they told him it was normal. Review of Systems: General ROS: negative for - chills, fever or night sweats Respiratory ROS: no cough, shortness of breath, or wheezing Cardiovascular ROS: no chest pain or dyspnea on exertion Musculoskeletal ROS: positive for - joint pain as above. Neurological ROS: no TIA or stroke symptoms Skin/ integumentary ROS: no generalized rashes, no generalized erythema, no open lesions Pertinent positives reviewed in chart, otherwise negative to a complete review of systems. Medications: has a current medication list which includes the following prescription(s): acetaminophen, baclofen, baclofen, clobetasol propionate, lidocaine, lisinopril, meloxicam, ropinirole, tramadol, and trazodone. Allergies: has No Known Allergies. PFSH: Past Medical History: has a past medical history of Ankle joint pain, Essential hypertension, benign, Flat foot, Hernia, umbilical, Hyperlipidemia, Ingrown toenail, Low back pain, Male erectile dysfunction, Pain in left shoulder, Pain in right shoulder, Pityriasis versicolor, and RLS (restless legs syndrome). Past Surgical History: has a past surgical history that includes arthroscopy shoulder w/ rotator cuff repair (Left, 10/27/2017); arthroscopy shoulder w/ subacromial decompression/acromioplasty add-on (Left, 10/27/2017); arthroscopy shoulder w/ debridement (Left, 10/27/2017); hernia repair; insertion neurostimulator electrode spinal percutaneous (N/A, 07/13/2021); insertion replacement neurostimulator generator spinal (N/A, 07/13/2021); and analysis/programming neurostimulator generator system (N/A, 07/13/2021). Family History: no known history of clotting disorders Social History: reviewed in chart. reports that he has never smoked. He has never used smokeless tobacco.. Occupation: Retired, [place] Physical Examination: GENERAL: alert and oriented x3; alert, well-appearing, no acute distress Wt Readings from Last 1 Encounters: 09/15/21 73.9 kg (163 lb) , There is no height or weight on file to calculate BMI. HEAD: Normocephalic, atraumatic. CHEST: Equal chest rise bilaterally. CARDIOVASCULAR: Warm and well perfused extremities MUSCULOSKELETAL: Gait: deferred SKIN: no erythema/cellulitis; no signs of obvious infection. Inspection/ Palpation: - Well healed prior surgical incisions, chronic deformity to the ankle; normal callosities, pes planus Left foot and ankle: swelling- ;Yes, describe: chronic along the medial aspect of the ankle; ecchymosis- No; there is mild tenderness along the anterior joint line - no ttp @medial/lateral malleolus - no ttp @peroneal/Achilles/PT tendons - no ttp @medial/lateral shoulder of talus Range of Motion: - overall painless passive ankle ROM - supple subtalar motion - pain with resisted eversion- No; pain with resisted inversion- KISHAN due to PTT removal during prior surgery - R ankle: DF- 15 PF- 50; L ankle: DF- 15 PF- 50 Stability: anterior drawer- No Muscle Strength and Tone: intact strength to toe flex/ ext, ankle df/ pf/ ev/ inv NEUROVASCULAR: no focal deficits; sensation intact and symmetric to light touch in sural/ saph/ deep per/ sup per/ tibial n distributions; brisk cap refill with palp DP pulse bilat -no tinels Radiology: CT ANKLE LEFT W CONTRAST (06/23/2022) 1. Large peripherally enhancing subtalar and tibiotalar joint effusions in communication with a large amount of fluid within and rim enhancement of the medial flexor and peroneal tendon sheaths. The sterility of this fluid is indeterminate. Findings raise concern for septic joint effusions and infectious tenosynovitis involving the medial flexor and peroneal tendons. 2. Moderate to severe cellulitis of the foot and ankle. 3. No aggressive osseous destruction. 4. Diffuse osteopenia and degenerative changes as detailed above. 5. Evidence of remote injury to the medial and lateral malleolus. 6. Mild plantar calcaneal spur. No acute fracture or dislocation. MRI of the Left ankle (09/30/22, 12/12/22) were independently reviewed and demonstrate progressive erosive changes involving the ankle and subtalar joints with large effusion Radiographs: 3 weightbearing views of the Left ankle (12/22/22) were independently reviewed and demonstrate osteopenia, flatfoot deformity, severe hindfoot valgus with 10deg valgus tibiotalar tilt and erosive changes c/w known recent septic ankle and subtalar arthritis Assessment/Plan: ICD-10-CM 1. Staphylococcal arthritis of left ankle M00.072 XR ANKLE LEFT 3+ VIEWS CASE REQUEST - SURGERY 2. 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 Chronic osteomyelitis of left ankle M86.672 CASE REQUEST - SURGERY CBC, EDIF, PLATELET SEDIMENTATION RATE, AUTOMATED C REACTIVE PROTEIN COMPREHENSIVE METABOLIC PANEL PT,INR,PTT VITAMIN D (25-HYDROXY,TOTAL) Preston has severe erosive changes of the ankle and subtalar due to chronic septic arthritis. - plan for Left ankle scope and bone biopsy - discussed with Dr. Lobato (Infectious Disease)- will send joint aspirate, bone culture, and bone pathology - check labs today - schedule at [facility] and admit postop for ID consult - if cultures are positive will need 6 weeks IV abx - if cultures are negative will plan for staged tibiotalocalcaneal fusion - case request entered and consent completed today The diagnosis and treatment plan were discussed at length. Surgical specifics; associated risks and benefits; treatment alternatives; outcome expectations; and rehabilitation plan were discussed thoroughly. Risks reviewed included but were not limited to pain, bleeding, infection, decreased range of motion, weakness, sensitive/unsightly scar, neurovascular injury, poor outcome, and need for subsequent surgeries. The patient expressed understanding, agrees, and wishes to proceed. The patient understands the plan and all questions were answered. Abbie Thomas MD I interviewed and examined the patient with the resident. I personally reviewed the radiographic studies. The information in this document, originally created by the resident for me, and edited by myself, accurately reflects the services I personally performed and the decisions I made. I have reviewed and edited the note as necessary and approve this document for accuracy. Cristopher Moreira MD documented in this encounter [facility] 12-08-2022 Hospital Discharge instructions Maira Figueroa RN - 12/08/2022 2:10 PM EST Verbally reviewed discharge instructions for care and follow up. Previous print out of these instructions were given with prior treatment.Patient verbalized understanding of these instructions. documented in this encounter [employer] Phone: 12-07-2022 Hospital Discharge instructions Maira Figueroa RN - 12/07/2022 1:17 PM EST Verbally reviewed discharge instructions for care and follow up. Previous print out of these instructions were given with prior treatment.Patient verbalized understanding of these instructions. documented in this encounter [facility] [employer] Phone: 12-06-2022 Hospital Discharge instructions Maira Figueroa RN - 12/06/2022 2:45 PM EST Verbally reviewed discharge instructions for care and follow up. Previous print out of these instructions were given with prior treatment.Patient verbalized understanding of these instructions. documented in this encounter [facility] [employer] Phone: 12-05-2022 Hospital Discharge instructions Germania Farley RN - 12/05/2022 1:29 PM EST Verbally reviewed discharge instructions for care and follow up. Previous print out of these instructions were given with prior treatment.Patient verbalized understanding of these instructions. documented in this encounter [employer] Phone: 12-02-2022 Hospital Discharge instructions Maira Figueroa RN - 12/02/2022 3:23 PM EST Verbally reviewed discharge instructions for care and follow up. Previous print out of these instructions were given with prior treatment.Patient verbalized understanding of these instructions. documented in this encounter [employer] Phone: 12-01-2022 Hospital Discharge instructions Maira Figueroa RN - 12/01/2022 2:16 PM EST Verbally reviewed discharge instructions for care and follow up. Previous print out of these instructions were given with prior treatment.Patient verbalized understanding of these instructions. documented in this encounter [employer] Phone: 11-30-2022 Hospital Discharge instructions Germania Farley RN - 11/30/2022 1:22 PM EST Verbally reviewed discharge instructions for care and follow up. Previous print out of these instructions were given with prior treatment.Patient verbalized understanding of these instructions. documented in this encounter [employer] Phone: 11-29-2022 Hospital Discharge instructions Francie Contreras RN - 11/29/2022 1:47 PM EST Verbally reviewed discharge instructions for care and follow up. Previous print out of these instructions were given with prior treatment.Patient verbalized understanding of these instructions. documented in this encounter [employer] Phone: 11-26-2022 History of Present illness Narrative Pt presents for scheduled OP ATB infusion. 22G IV placed in left AC. Pt denies pain at this time. Pre-infusion VS 1300 BP 102/61 HR 88 SpO2 96% RA Post-infusion VS 1340 BP 103/55 HR 91 SpO2 95% RA IV left in place for future infusions. Covered with coban. documented in this encounter [employer] Phone: 11-25-2022 History of Present illness Narrative Discharge instructions reviewed with patient and patient's spouse. Verbalized understanding and denied any questions. Patient verbalizes readiness for discharge at this time. Discharge Criteria Inpatients must meet Criteria 1 through 7. All other patients are either YES or N/A. If a NO is chosen then Anesthesia or Surgeon must be notified. 1. Minimum 30 minutes after last dose of sedative medication, minimum 120 minutes after last dose of reversal agent. Yes 2. Systolic BP stable within 20 mmHg for 30 minutes & systolic BP between 90 & 180 or within 10 mmHg of baseline. Yes 3. Pulse between 60 and 100 or within 10 bpm of baseline. Yes 4. Spontaneous respiratory rate >/= 10 per minute. Yes 5. SaO2 >/= 95 or >/= baseline. Yes 6. Able to cough and swallow or return to baseline function. Yes 7. Alert and oriented or return to baseline mental status. Yes 8. Demonstrates controlled, coordinated movements, ambulates with steady gait, or return to baseline activity function. Yes 9. Minimal or no pain or nausea, or at a level tolerable and acceptable to patient. Yes 10. Takes and retains oral fluids as allowed. Yes 11. Procedural / perioperative site stable. Minimal or no bleeding. Yes 12. If GI endoscopy procedure, minimal or no abdominal distention or passing flatus. N/A 13. Written discharge instructions and emergency telephone number provided. Yes 14. Accompanied by a responsible adult. Yes Notified RENETTA Dao of abnormal telemetry appearance. Patient instructed on the pre-operative, intra-operative, and post-operative process. Patient instructed on NPO status. Medication instructions and pre operative instruction sheet reviewed with the patient. CHG skin prep instructions reviewed with patient. Instructed pt to take gabapentin and requip only with a small sip of water prior to arriving to the hospital the day of surgery. Pt states he was instructed to stop taking aspirin 1 week prior to surgery per Dr. Saini. documented in this encounter [facility] [employer] Phone: 11-25-2022 Hospital Discharge instructions Ayleen Acosta RN - 11/25/2022 2:17 PM EST SAME DAY SURGERY DISCHARGE INSTRUCTIONS 1. Do not drive or operate hazardous machinery for 24 hours. 2. Do not make important personal or business decisions for 24 hours. 3. Do not drink alcoholic beverages for 24 hours. 4. Do not smoke tobacco products for 24 hours. 5. Eat light foods (Jell-O, soups, etc....) and drink plenty of fluids (water, Sprite, etc...) up to 8 glasses per day, as you can tolerate. 6. Limit your activities for 24 hours. Do not engage in heavy work until your surgeon gives you permission. 7. Patient should not be left alone for 12-24 hours following surgical procedure. 8. Report the following signs or any questions regarding your physical condition to your surgeon immediately: Excessive swelling of, or around the wound area. Redness. Temperature of 100 degrees (F) or above. Excessive pain. 9. Call your surgeon for any questions regarding your surgery. 10. Wash hands before and after incision care. It is important to practice good personal hygiene during the post op period. DISCHARGE INSTRUCTIONS 1. Keep the surgical dressing clean, dry, and intact 2. Elevate the operative extremity above heart level when seated or lying 3. Place ice behind the knee of the operative extremity 20 minutes per hour while awake 4. TTWB(toe touch weight bearing) with crutch or walker assist, LLE(left lower extremity) ANTIBIOTIC INFUSION THERAPY Monday and Monday-GO to the Emergency Department-check in with registration window when you first enter the emergency department waiting room and RN welfare supervisor will do your infusion -go to treatment clinic- Medical Office Building, second floor-[address] documented in this encounter [facility] [employer] Phone: 07-04-2022 Note Splint material degr ades osseous evaluation. No displaced fracture or malalignment identified. PN RIS CONSOLIDATED 06-26-2022 History of Present illness Narrative Pt dc to front door per wc. Pt left with all belongings. Pt dc to home by private car and CLINICAL PHARMACY NOTE: MEDS TO BEDS Total # of Prescriptions Filled: 6 The following medications were delivered to the patient: Oxycodone 5 Tylenol 500 Gabapentin 300 Tramadol 50 Doxy 100 Dok 100 Additional Documentation: Billed covered meds on voucher, pt is a [facility].... pt paid for the rest of the meds with [facility] Pt given dc instructions. Pt verbalized understanding. Pt witing on meds to beds and new script for pain meds. Pt will pickling grader walker at [facility] he does not want to wait for walker . Pt to be dc on ultram pt states that ultam dose not work perfect served ortho resident for something different [facility] Pharmacokinetic Monitoring Service - Vancomycin Consulting Provider: Kiel Mir Indication: septic arthritis Target Concentration: Goal AUC/CARYL 400-600 mg*hr/L Day of Therapy: 4 Additional Antimicrobials: none Pertinent Laboratory Values: Wt Readings from Last 1 Encounters: 06/24/22 173 lb (78.5 kg) Temp Readings from Last 1 Encounters: 06/26/22 97.4 F (36.3 C) (Oral) Estimated Creatinine Clearance: 139 mL/min (A) (based on SCr of 0.5 mg/dL (L)). Recent Labs 06/23/22 1307 06/24/22 0338 06/25/22 0501 06/26/22 0559 CREATININE 0.63* 0.74 0.54* 0.50* WBC 13.1* 12.6* -- -- Pertinent Cultures: Culture Date Source Results 06/24 Synovial cyst Few g+ cocci 06/24 Ankle swab Rare g+ cocci 06/24 Blood Staph aureus MecA negative Recent vancomycin administrations vancomycin (VANCOCIN) 1000 mg in sodium chloride 0.9% 250 mL IVPB (mg) 1,000 mg New Bag 06/26/22 0201 1,000 mg New Bag 06/25/22 1406 1,000 mg New Bag 0240 1,000 mg New Bag 06/24/22 1500 vancomycin (VANCOCIN) 1,250 mg in dextrose 5 % 250 mL IVPB (mg) 1,250 mg New Bag 06/23/22 1805 Assessment: Date/Time Current Dose Concentration Timing of Concentration (h) AUC 06/25 1000 mg q12h 24.9 2h 21m 408 Note: Serum concentrations collected for AUC dosing may appear elevated if collected in close proximity to the dose administered, this is not necessarily an indication of toxicity Plan: Current dosing regimen is borderline therapeutic Since renal function continues to improve - will Increase dose to 1250 mg q12h Repeat vancomycin concentration not yet ordered Pharmacy will continue to monitor patient and adjust therapy as indicated Thank you for the consult, Oscar Carranza 06/26/2022 11:10 AM pt states dressing too tight. he states dr rewapped it earlier and it feels way too tight. Pt wants to know if dr can come loosen and rewrap it tperfect served ortho dr about above dr sutton bandage pt states feels better @[email or web address]@ [facility] IN-PATIENT SERVICE [facility] Progress Note 06/26/2022 7:09 AM Name: Preston Carrasquillo Acct: [id number] Room: 0238/0238-01 Day: 2 Admit Date: 06/24/2022 1:33 AM PCP: No primary care provider on file. Code Status: Full Code Subjective: C/C: Interval History Status: improved. Vitals reviewed, Afebrile and Hypertensive today. Added PRN meds. Labs reviewed, hyponatremia improving. Overnight patient had no significant events. On examination patient resting comfortably in bed. BP at time of evaluation 139/65 mmHg. Complains of pain but states much improved over the last few days. No signs of alcohol withdrawal. Patient is also receiving beer with meals as he has no intention to quit drinking despite encouragement and social work discussion. Brief History: Mr. Preston Carrasquillo is a 66 year old male with a significant past medical history of Hypertension and ETOH abuse who presented to the emergency department with the chief complaint of left ankle pain x 5 days. Worsening over the course of his symptoms. Denies fall or trauma. He was admitted for L Ankle Septic Arthritis rule out and medicine was consulted for medical management. Per patient discussion and chart review patient has a history of Hypertension, Restless Leg Syndrome and ETOH abuse. States he takes Lisinopril 10 mg daily and Carbidopa-Levodopa. Does not take Trazodone. States he drinks roughly 5 beers a day and less drink was now two nights prior. Never had alcohol withdrawal. Review of Systems: Constitutional: negative for chills, fevers, sweats Respiratory: negative for cough, dyspnea on exertion, shortness of breath, wheezing Cardiovascular: negative for chest pain, chest pressure/discomfort, lower extremity edema, palpitations Gastrointestinal: negative for abdominal pain, constipation, diarrhea, nausea, vomiting Neurological: negative for dizziness, headache Medications: Allergies: No Known Allergies Current Meds: Scheduled Meds: enoxaparin 30 mg SubCUTAneous BID rOPINIRole 1 mg Oral TID sodium chloride flush 5-40 mL IntraVENous 2 times per day acetaminophen 650 mg Oral Q6H sodium chloride flush 5-40 mL IntraVENous 2 times per day thiamine 100 mg Oral Daily folic acid 1 mg Oral Daily vancomycin (VANCOCIN) intermittent dosing (placeholder) Other RX Placeholder vancomycin 1,000 mg IntraVENous Q12H lisinopril 10 mg Oral Nightly Continuous Infusions: sodium chloride sodium chloride PRN Meds: melatonin, methocarbamol, naproxen, traZODone, sodium chloride flush, sodium chloride, ondansetron OR ondansetron, polyethylene glycol, oxyCODONE OR oxyCODONE, morphine OR morphine, sodium chloride flush, sodium chloride, LORazepam OR LORazepam OR LORazepam OR LORazepam OR LORazepam OR LORazepam OR LORazepam OR LORazepam Data: Past Medical History: has a past medical history of Diastasis recti, Hyperlipidemia, Hypertension, Restless legs syndrome, and Umbilical hernia. Social History: reports that he has never smoked. He has never used smokeless tobacco. He reports current alcohol use. He reports that he does not use drugs. Family History: Family History Adopted: Yes Problem Relation Age of Onset No Known Problems Mother No Known Problems Father No Known Problems Brother Vitals: BP (!) 174/82 Pulse 65 Temp 97.6 F (36.4 C) (Oral) Resp 17 Ht 5' 8 (1.727 m) Wt 173 lb (78.5 kg) SpO2 97% BMI 26.30 kg/m Temp (24hrs), Av.6 F (36.4 C), Min:97.5 F (36.4 C), Max:97.8 F (36.6 C) No results for input(s): POCGLU in the last 72 hours. I/O (24Hr): Intake/Output Summary (Last 24 hours) at 06/26/2022 0709 Last data filed at 06/25/2022 1444 Gross per 24 hour Intake 440 ml Output 600 ml Net -160 ml Labs: Hematology: Recent Labs 06/23/22 1307 06/24/22 0338 06/25/22 0501 WBC 13.1* 12.6* -- RBC 4.59 4.59 -- HGB 15.0 15.3 -- HCT 44.0 43.1 -- MCV 95.9 93.9 -- MCH 32.7 33.3 -- MCHC 34.1 35.5* -- RDW 11.9 12.0 -- PLT 210 200 -- MPV 10.6 10.6 -- SEDRATE 61* -- -- CRP 106.0* 143.4* 149.4* INR -- 0.9 -- Chemistry: Recent Labs 06/23/22 1307 06/24/22 0338 06/25/22 0501 NA 127* 126* 126* K 4.2 4.6 4.1 CL 94* 93* 95* CO2 25 21 21 GLUCOSE 85 88 137* BUN 18 19 17 CREATININE 0.63* 0.74 0.54* ANIONGAP 8* 12 10 LABGLOM >60 >60 >60 GFRAA >60 >60 >60 CALCIUM 8.3* 8.2* 7.8* Recent Labs 06/23/22 1307 PROT 6.5 LABALBU 3.2* AST 17 ALT 15 ALKPHOS 73 BILITOT 0.78 ABG:No results found for: POCPH, PHART, PH, POCPCO2, [id number], PCO2, POCPO2, PO2ART, PO2, POCHCO3, GMS5XVU, HCO3, NBEA, PBEA, BEART, BE, THGBART, THB, MQM5DGE, XWHQ8ZSA, X8XZWCCJ, O2SAT, FIO2 Lab Results Component Value Date/Time SPECIAL l hand 6ml 06/24/2022 06:45 AM Lab Results Component Value Date/Time CULTURE STAPHYLOCOCCUS AUREUS HEAVY GROWTH (A) 06/24/2022 11:42 AM Radiology: XR CHEST (SINGLE VIEW FRONTAL) Result Date: 06/24/2022 No acute findings. XR ANKLE LEFT (MIN 3 VIEWS) Result Date: 06/24/2022 No acute bony abnormality of the ankle. Medial predominant soft tissue swelling. Moderate ankle joint osteoarthritis. CT ANKLE LEFT W CONTRAST Result Date: 06/23/2022 1. Large peripherally enhancing subtalar and tibiotalar joint effusions in communication with a large amount of fluid within and rim enhancement of the medial flexor and peroneal tendon sheaths. The sterility of this fluid is indeterminate. Findings raise concern for septic joint effusions and infectious tenosynovitis involving the medial flexor and peroneal tendons. 2. Moderate to severe cellulitis of the foot and ankle. 3. No aggressive osseous destruction. 4. Diffuse osteopenia and degenerative changes as detailed above. 5. Evidence of remote injury to the medial and lateral malleolus. 6. Mild plantar calcaneal spur. No acute fracture or dislocation. Physical Examination: General appearance: alert, cooperative and no distress Mental Status: oriented to person, place and time and normal affect Lungs: clear to auscultation bilaterally, normal effort Heart: regular rate and rhythm, no murmur Abdomen: soft, nontender, nondistended, normal bowel sounds, no masses, hepatomegaly, splenomegaly Extremities: no edema, redness, tenderness in the calves Skin: no gross lesions, rashes, induration Assessment: Hospital Problems Last Modified POA * (Principal) Acute left ankle pain 06/24/2022 Yes Septic arthritis of left ankle, due to unspecified organism (HCC) 06/24/2022 Yes Primary hypertension 06/24/2022 Yes ETOH abuse 06/24/2022 Yes Restless leg syndrome 06/24/2022 Yes Hyponatremia 06/25/2022 Yes Plan: Hypertension - Lisinopril 10 mg daily. - Added PRN meds to assist with BP fluctuations. - has not required. ETOH Abuse. - 5 beers daily with last drink roughly 48 hours ago. - No history of ETOH withdrawal. - Thiamine and folic acid daily. - [facility] protocol. - Will provide 2 beers with lunch and dinner. 3. Restless Leg Syndrome - Requip 1 mg TID 4. 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 - Baseline per chart review is around 128. - Fluid restriction 1500 ml - Improving. - Will monitor. 5. Left Ankle Septic Arthritis. - S/P open ankle I&D and posterior tibialis tendon excision. - Ortho managing. - Cultures positive for gram positive cocci in clusters - On vancomycin Mumtaz Norris DO 06/26/2022 7:09 AM Physical Therapy Facility/Department: [address] ORTHO/MED SURG Physical Therapy Initial Assessment Name: Preston Carrasquillo : 1955 Date of Service: 06/25/2022 Copied from chart: Preston Carrasquillo is a 66 y.o. male who presents to the emergency department c/o left ankle pain and swelling that has worsened over the last 5 days. States he hurt it about 5 years ago but states it was just old age . Was seen here 3 days ago in the ER with negative workup and discharged. Pain has worsened and now he cannot bear weight. Discharge Recommendations: Patient would benefit from continued therapy after discharge PT Equipment Recommendations Equipment Needed: Yes Mobility Devices: Walker Walker: Standard Patient Diagnosis(es): The encounter diagnosis was Septic arthritis of left ankle, due to unspecified organism (HCC). Past Medical History: has a past medical history of Diastasis recti, Hyperlipidemia, Hypertension, Restless legs syndrome, and Umbilical hernia. Past Surgical History: has a past surgical history that includes Rotator cuff repair; Rotator cuff repair; Biceps tendon repair; hernia repair (N/A, 12/27/2018); Pain management procedure (Right, 08/11/2020); Pain management procedure (Right, 09/08/2020); shoulder surgery (Right, 10/13/2020); and Ankle Arthrotomy (Left, 06/24/2022). Assessment Body Structures, Functions, Activity Limitations Requiring Skilled Therapeutic Intervention: Decreased functional mobility ;Decreased strength;Decreased safe awareness;Decreased endurance;Decreased balance;Increased pain Assessment: Pt with mobility deficits requiring min-A to perform sit<>stand transfer, min-A to ambulate 6 feet with a SW. Pt able to maintain NWB LLE throughout today's session, pt demonstrates mild instability with 6 foot ambulation bout this date, but is most limited secondary to increased pain, impaired endurance. Pt would benefit from additional PT upon discharge to maximize functional independence. Pt would be unsafe to return to prior living arrangements upon discharge due to high fall risk. Therapy Prognosis: Good Decision Making: Medium Complexity Requires PT Follow-Up: Yes Activity Tolerance Activity Tolerance: Patient limited by pain;Patient limited by fatigue Plan Plan Plan: (5-6x/week) Current Treatment Recommendations: Strengthening, Balance training, Functional mobility training, Transfer training, Gait training, Stair training, Patient/Caregiver education & training, Safety education & training, Home exercise program, Endurance training, Equipment evaluation, education, & procurement, Therapeutic activities Safety Devices Type of Devices: Gait belt, Patient at risk for falls, All fall risk precautions in place, Call light within reach, Chair alarm in place, Left in chair Restraints Restraints Initially in Place: No Restrictions Restrictions/Precautions Restrictions/Precautions: Fall Risk, Seizure, Weight Bearing Required Braces or Orthoses?: No Lower Extremity Weight Bearing Restrictions Left Lower Extremity Weight Bearing: Non Weight Bearing Subjective General Patient assessed for rehabilitation services?: Yes Response To Previous Treatment: Not applicable Family / Caregiver Present: No Follows Commands: Within Functional Limits Subjective Subjective: Pt supine in bed and agreeable to therapy, RN agreeable to therapy. Pt particular but cooperative throughout today's session. Social/Functional History Social/Functional History Lives With: Spouse, Family (adult son and grandson (11 YO)) Type of Home: House Home Layout: Two level, Able to Live on Main level with bedroom/bathroom Home Access: Stairs to enter with rails Entrance Stairs - Number of Steps: 3 Entrance Stairs - Rails: Right Bathroom Shower/Tub: Walk-in shower Bathroom Toilet: Standard Bathroom Equipment: Grab bars in shower, Grab bars around toilet, Shower chair Home Equipment: Cane (pt reports using SPC for the past week since his leg has been bothering him) Receives Help From: Family ADL Assistance: Independent Homemaking Assistance: Independent Homemaking Responsibilities: Yes Ambulation Assistance: Independent Transfer Assistance: Independent Active Statistician Mathematical: Yes Mode of Transportation: Car 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 Vision/Hearing Vision Vision: Impaired Vision Exceptions: Wears glasses at all times Hearing Hearing: Within functional limits Cognition Cognition Overall Cognitive Status: Exceptions Arousal/Alertness: Appropriate responses to stimuli Safety Judgement: Decreased awareness of need for assistance Objective AROM RLE (degrees) RLE AROM: WFL AROM LLE (degrees) LLE AROM : WFL LLE General AROM: Ankle NT AROM RUE (degrees) RUE AROM : WFL AROM LUE (degrees) LUE AROM : WFL Strength RLE Strength RLE: WFL Comment: Grossly 4+/5 Strength LLE Strength LLE: Exception L Hip Flexion: 3/5 L Knee Extension: 3/5 Strength RUE Strength RUE: WFL Strength LUE Strength LUE: WFL Bed mobility Supine to Sit: Stand by assistance Sit to Supine: (pt retired up to a chair at the conclusion of today's session.) Scooting: Contact guard assistance Bed Mobility Comments: HOB elevated ~50 degrees without use of handrails. Transfers Sit to Stand: Minimal Assistance Stand to sit: Minimal Assistance Comment: Transfers performed 5x this date. Verbal cues for hand placement. Ambulation WB Status: NWB LLE Ambulation Surface: level tile Device: Standard Walker Assistance: Minimal assistance Quality of Gait: 3 point gait pattern, mild instability, decreased stride length. Gait Deviations: Slow Jeannie;Decreased step length;Decreased step height Distance: 3 feet L/R at the EOB, seated rest break, 6 feet. More Ambulation?: Yes Ambulation 2 Surface - 2: level tile Device 2: Rolling Walker Assistance 2: Minimal assistance Quality of Gait 2: unsteady, 3 point gait pattern. Gait Deviations: Slow Jeannie;Decreased step length;Decreased step height Distance: 1 foot R at the EOB Stairs/Curb Stairs?: No (discussed techinques for stair negotiation once appropriate.) Balance Posture: Fair Sitting - Static: Good;- Sitting - Dynamic: Fair;+ Standing - Static: Fair Standing - Dynamic: Fair;- Comments: standing balance assessed while using a SW. AM-PAC Score AM-[facility] Inpatient Mobility Raw Score : 16 (06/25/221356) AM-PAC Inpatient T-Scale Score : 40.78 (06/25/221356) Mobility Inpatient CMS 0-100% Score: 54.16 (06/25/221356) Mobility Inpatient CMS G-Code Modifier : CK (06/25/221356) Goals Short Term Goals Time Frame for Short term goals: 14 visits Short term goal 1: Pt will ambulate 75 feet with a SW and SBA to increase functional independence. Short term goal 2: Pt will negotiate 3 stairs with a right sided handrail and CGA to allow the pt to enter prior living arrangements Short term goal 3: Pt will demonstrate good- standing balance to decrease fall risk. Short term goal 4: Pt will tolerate a 35 minute therapy session to promote increased endurance. Short term goal 5: Pt will perform sit<>stand transfer with supervision to increase functional independence. Additional Goals?: No Education Patient Education Education Given To: Patient Education Provided: Role of Therapy;Transfer Training;Equipment;Plan of Care;Fall Prevention Strategies Education Method: Verbal Barriers to Learning: None Education Outcome: Verbalized understanding Therapy Time Individual Concurrent Group Co-treatment Time In 1048 Time Out 1119 Minutes 31 Timed Code Treatment Minutes: 23 Minutes Seferino Delgado PT Pt states takes requip 1mg 3 times a day pt states he does not take sinemet anymore was switched to requip. Notified dr abbasi ordered and sinemet [facility]'d [facility] updated [facility] make [facility] correct [email or web address] SERVICE [facility] Progress Note 06/25/2022 8:32 AM Name: Preston Carrasquillo Acct: [id number] Room: 0238/0238-01 Day: 1 Admit Date: 06/24/2022 1:33 AM PCP: No primary care provider on file. Code Status: Full Code Subjective: C/C: Interval History Status: improved. Vitals reviewed, Afebrile and hemodynamically stable. BP fluctuating but patient states he is in pain. Will monitor today and adjust BP meds accordingly. Labs reviewed, hyponatremic but otherwise stable. Care everywhere and old labs reviewed patient sodium 128 at baseline. Overnight patient had no significant events. On examination patient resting comfortably in bed. Requesting ETOH with Lunch and Dinner. Brief History: Mr. Preston Carrasquillo is a 66 year old male with a significant past medical history of Hypertension and ETOH abuse who presented to the emergency department with the chief complaint of left ankle pain x 5 days. Worsening over the course of his symptoms. Denies fall or trauma. He was admitted for L Ankle Septic Arthritis rule out and medicine was consulted for medical management. Per patient discussion and chart review patient has a history of Hypertension, Restless Leg Syndrome and ETOH abuse. States he takes Lisinopril 10 mg daily and Carbidopa-Levodopa. Does not take Trazodone. States he drinks roughly 5 beers a day and less drink was now two nights prior. Never had alcohol withdrawal. Review of Systems: Constitutional: negative for chills, fevers, sweats Respiratory: negative for cough, dyspnea on exertion, shortness of breath, wheezing Cardiovascular: negative for chest pain, chest pressure/discomfort, lower extremity edema, palpitations Gastrointestinal: negative for abdominal pain, constipation, diarrhea, nausea, vomiting Neurological: negative for dizziness, headache Medications: Allergies: No Known Allergies Current Meds: Scheduled Meds: enoxaparin 30 mg SubCUTAneous BID sodium chloride flush 5-40 mL IntraVENous 2 times per day acetaminophen 650 mg Oral Q6H carbidopa-levodopa 1 tablet Oral TID sodium chloride flush 5-40 mL IntraVENous 2 times per day thiamine 100 mg Oral Daily folic acid 1 mg Oral Daily vancomycin (VANCOCIN) intermittent dosing (placeholder) Other RX Placeholder vancomycin 1,000 mg IntraVENous Q12H lisinopril 10 mg Oral Nightly Continuous Infusions: sodium chloride sodium chloride PRN Meds: melatonin, methocarbamol, naproxen, traZODone, sodium chloride flush, sodium chloride, ondansetron OR ondansetron, polyethylene glycol, oxyCODONE OR oxyCODONE, morphine OR morphine, sodium chloride flush, sodium chloride, LORazepam OR LORazepam OR LORazepam OR LORazepam OR LORazepam OR LORazepam OR LORazepam OR LORazepam Data: Past Medical History: has a past medical history of Diastasis recti, Hyperlipidemia, Hypertension, Restless legs syndrome, and Umbilical hernia. Social History: reports that he has never smoked. He has never used smokeless tobacco. He reports current alcohol use. He reports that he does not use drugs. Family History: Family History Adopted: Yes Problem Relation Age of Onset No Known Problems Mother No Known Problems Father No Known Problems Brother Vitals: BP 132/75 Pulse (!) 102 Temp 97.7 F (36.5 C) (Oral) Resp 14 Ht 5' 8 (1.727 m) Wt 173 lb (78.5 kg) SpO2 99% BMI 26.30 kg/m Temp (24hrs), Av.5 F (36.4 C), Min:96.8 F (36 C), Max:98 F (36.7 C) No results for input(s): POCGLU in the last 72 hours. I/O (24Hr): Intake/Output Summary (Last 24 hours) at 06/25/2022 0832 Last data filed at 06/25/2022 0700 Gross per 24 hour Intake 2080 ml Output 2285 ml Net -205 ml Labs: Hematology: Recent Labs 06/23/22 1307 06/24/22 0338 06/25/22 0501 WBC 13.1* 12.6* -- RBC 4.59 4.59 -- HGB 15.0 15.3 -- HCT 44.0 43.1 -- MCV 95.9 93.9 -- MCH 32.7 33.3 -- MCHC 34.1 35.5* -- RDW 11.9 12.0 -- PLT 210 200 -- MPV 10.6 10.6 -- SEDRATE 61* -- -- CRP 106.0* 143.4* 149.4* INR -- 0.9 -- Chemistry: Recent Labs 06/23/22 1307 06/24/22 0338 06/25/22 0501 NA 127* 126* 126* K 4.2 4.6 4.1 CL 94* 93* 95* CO2 25 21 21 GLUCOSE 85 88 137* BUN 18 19 17 CREATININE 0.63* 0.74 0.54* ANIONGAP 8* 12 10 LABGLOM >60 >60 >60 GFRAA >60 >60 >60 CALCIUM 8.3* 8.2* 7.8* Recent Labs 06/23/22 1307 PROT 6.5 LABALBU 3.2* AST 17 ALT 15 ALKPHOS 73 BILITOT 0.78 ABG:No results found for: POCPH, PHART, PH, POCPCO2, SRU3OJZ, PCO2, POCPO2, PO2ART, PO2, POCHCO3, QOE5SXV, HCO3, NBEA, PBEA, BEART, BE, THGBART, THB, GHM3BJH, BNLP5UYI, L7AOCIBY, O2SAT, FIO2 Lab Results Component Value Date/Time SPECIAL l hand 6ml 06/24/2022 06:45 AM Lab Results Component Value Date/Time CULTURE PENDING 06/24/2022 11:42 AM Radiology: XR CHEST (SINGLE VIEW FRONTAL) Result Date: 06/24/2022 No acute findings. XR ANKLE LEFT (MIN 3 VIEWS) Result Date: 06/24/2022 No acute bony abnormality of the ankle. Medial predominant soft tissue swelling. Moderate ankle joint osteoarthritis. CT ANKLE LEFT W CONTRAST Result Date: 06/23/2022 1. Large peripherally enhancing subtalar and tibiotalar joint effusions in communication with a large amount of fluid within and rim enhancement of the medial flexor and peroneal tendon sheaths. The sterility of this fluid is indeterminate. Findings raise concern for septic joint effusions and infectious tenosynovitis involving the medial flexor and peroneal tendons. 2. Moderate to severe cellulitis of the foot and ankle. 3. No aggressive osseous destruction. 4. Diffuse osteopenia and degenerative changes as detailed above. 5. Evidence of remote injury to the medial and lateral malleolus. 6. Mild plantar calcaneal spur. No acute fracture or dislocation. Physical Examination: General appearance: alert, cooperative and no distress Mental Status: oriented to person, place and time and normal affect Lungs: clear to auscultation bilaterally, normal effort Heart: regular rate and rhythm, no murmur Abdomen: soft, nontender, nondistended, normal bowel sounds, no masses, hepatomegaly, splenomegaly Extremities: no edema, redness, tenderness in the calves Skin: no gross lesions, rashes, induration Assessment: Hospital Problems Last Modified POA * (Principal) Acute left ankle pain 06/24/2022 Yes Septic arthritis of left ankle, due to unspecified organism (HCC) 06/24/2022 Yes Primary hypertension 06/24/2022 Yes ETOH abuse 06/24/2022 Yes Restless leg syndrome 06/24/2022 Yes Plan: Hypertension - Lisinopril 10 mg daily. - Currently held as patient's BP was lower this morning. ETOH Abuse. - 5 beers daily with last drink roughly 48 hours ago. - No history of ETOH withdrawal. - Thiamine and folic acid daily. - CIME protocol. - Will provide 2 beers with lunch and dinner. 3. Restless Leg Syndrome - Requip 1 mg TID 4. 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 - Baseline per chart review is around 128. - Fluid restriction 1500 ml - Will monitor. Mumtaz Norris DO 06/25/2022 8:32 AM Images from the original note were not included. Occupational Therapy [facility] Occupational Therapy Not Seen Note DATE: 06/24/2022 NAME: Preston Carrasquillo : 1955 Patient not seen this date for Occupational Therapy due to: Surgery/Procedure: Pt to OR today (06/24/22) with Ortho for Left Ankle Open Arthrotomy and Posterior Tibialis Excision (d/t Left septic arthritis and leg infection). [facility] Pharmacokinetic Monitoring Service - Vancomycin Preston Carrasquillo is a 66 y.o. male starting on vancomycin therapy for septic arthritis of left ankle. Pharmacy consulted by Kiel Mir for monitoring and adjustment. Target Concentration: Goal AUC/CARYL 400-600 mg*hr/L Pertinent Laboratory Values: Wt Readings from Last 1 Encounters: 06/24/22 173 lb (78.5 kg) Temp Readings from Last 1 Encounters: 06/24/22 97.8 F (36.6 C) (Oral) Estimated Creatinine Clearance: 94 mL/min (based on SCr of 0.74 mg/dL). Recent Labs 06/23/22 1307 06/24/22 0338 CREATININE 0.63* 0.74 WBC 13.1* 12.6* Procalcitonin: - Pertinent Cultures: Culture Date Source Results - - - Plan: Dosing recommendations based on Bayesian software Start vancomycin 1000mg q12h Anticipated AUC of 480 and trough concentration of 14.9 at steady state Renal labs as indicated Vancomycin concentration not yet ordered Pharmacy will continue to monitor patient and adjust therapy as indicated Thank you for the consult, Heide Oglesby RPH 06/24/2022 2:[address] Ana lockhart 0.9 NS because of low sodium. Sent to OR per bed Images from the original note were not included. Physical Therapy Physical Therapy Cancel Note DATE: 06/24/2022 NAME: Preston Carrasquillo : 1955 Patient not seen this date for Physical Therapy due to: Surgery/Procedure: I&D L ankle documented in this encounter [facility]: 06-24-2022 Hospital Discharge instructions Ximena Crow RN - 06/24/2022 12:54 PM EDT Orthopaedic Instructions: -Weight bearing status: Non weight bearing with the left leg -Do not take splint off or get it wet -Always work on toe motion (to non-injured toes) while in splint to decrease swelling. -Ice (20 minutes on and off 1 hour) and elevate above the level of the heart to reduce swelling and throbbing pain. -Call the office or come to Emergency Room if signs of infection appear (hot, swollen, red, draining pus, fever) -Take medications as prescribed. -Wean off narcotics s soon as possible. -Follow up in the orthopedic trauma clinic on 07/05 at 8:45 AM. Call [phone] with any questions/concerns. Kiel Mir, DO PGY-2 Resident Physician Orthopaedic Surgery [place], [place] 06/24/2022 at 12:52 PM Splint Care Instructions: Home care Wear your splint according to your doctor s instructions. Keep the splint dry at all times. Bathe with your splint well out of the water. You can hold the splint outside the tub or shower when bathing. Protect it with a large plastic bag closed at the top end with a rubber band. Use two layers of plastic to help keep the splint dry. Or you can buy a waterproof shield. If a splint gets wet, dry it with a chair trimmer on the cool setting. Don t use the warm or hot setting, because those settings can burn your skin. Always keep the splint clean and away from dirt. Keep your splint away from open flames. Don t expose your splint to heat, space heaters, or prolonged sunlight. Excessive heat will cause the splint to change shape. Don t cut or tear the splint. Exercise all the nearby joints not kept still by the splint. If you have a long leg splint, exercise your hip joint and your toes. If you have an arm splint, exercise your shoulder, elbow, thumb, and fingers. Elevate the part of your body that is in the splint. This helps reduce swelling. It is important to ice (20 min on and 1 hour off) and elevate at heart level to decrease pain and swelling. Always look for signs of compartment syndrome: pain out of proportion to the injury, pain not controlled with pain medication, numbness in digits, changing of color of digits. If these signs occur return to ED immediately for reassessment. Follow-up care Make a follow-up appointment with your healthcare provider, or as advised. When to call your healthcare provider Call your healthcare provider right away if you have any of these: Tingling or numbness in the affected area Severe pain that cannot be relieved with medicine Cast that feels too tight or too loose Swelling, coldness, or blue-layne color in the fingers or toes Cast that is damaged, cracked, or has rough edges that hurt Pressure sores or red beasley that don t go away within 1 hour after removing the splint Blisters If splint were to fall off or become saturated, do not attempt to put back on yourself. Return to ED immediately for reapplication if this occurs. Kristin Myers DO - 06/26/2022 12:06 PM EDT Continuity of Care Form Patient Name: Preston Carrasquillo : 1955 Admit date: 06/24/2022 Discharge date: Code Status Order: Full Code Advance Directives: Advance Care Flowsheet Documentation Date/Time Healthcare Directive Type of Healthcare Directive Copy in Chart Healthcare Agent Appointed Healthcare Agent's Name Healthcare Agent's Phone Number 06/24/22 0957 Yes, patient has an advance directive for healthcare treatment Durable power of regulatory attorney for health care;Living will -- Spouse Maria Elena -- Admitting Physician: Pardeep Infante DO PCP: No primary care provider on file. Discharging Nurse: Discharging Hospital Unit/Room#: 0238/0238-01 Discharging Unit Phone Number: Emergency Contact: Extended Emergency Contact Information Primary Emergency Contact: Maria Elena Carrasquillo [address] [address] [place] [address] of [employer] Relation: Spouse Speech Correction Assistant needed? No Past Surgical History: Past Surgical History: Procedure Laterality Date ANKLE ARTHROTOMY Left 06/24/2022 LEFT LEG IRRIGATION AND DEBRIDEMENT, LEFT ANKLE ARTHROTOMY AND IRRIGATION. EXCISION OF POSTERIOR TIBIALIS TENDON. BICEPS TENDON REPAIR HERNIA REPAIR N/A 12/27/2018 HERNIA VENTRAL REPAIR LAPAROSCOPIC ROBOTIC-UMBILICAL WITH MESH/LIKELY UMBILECTOMY performed by Camille Gonzales DO at [facility] OR PAIN MANAGEMENT PROCEDURE Right 08/11/2020 LUMBAR FACET, L4-L5 L5-S1 performed by Aroldo Montejo MD at [facility] OR PAIN MANAGEMENT PROCEDURE Right 09/08/2020 LUMBAR RFA-L2, L3, L4, L5 performed by Aroldo Montejo MD at [facility] OR ROTATOR CUFF REPAIR right shoulder ROTATOR CUFF REPAIR left and right SHOULDER SURGERY Right 10/13/2020 SHOULDER TOTAL ARTHROPLASTY REVERSE performed by Yovanny Cunha MD at [facility] OR Immunization History: There is no immunization history on file for this patient. Active Problems: Patient Active Problem List Diagnosis Code Right rotator cuff tear arthropathy M75.101, M12.811 Acute left ankle pain M25.572 Septic arthritis of left ankle, due to unspecified organism (HCC) M00.9 Primary hypertension I10 ETOH abuse F10.10 Restless leg syndrome G25.81 Hyponatremia E87.1 Isolation/Infection: Isolation No Isolation Patient Infection Status Infection Onset Added Last Indicated Last Indicated By Review Planned Expiration Resolved Resolved By None active Resolved COVID-19 (Rule Out) 10/06/20 10/06/20 10/06/20 COVID-19 Ambulatory (Ordered) 10/07/20 Rule-Out Test Resulted COVID-19 09/08/20 09/10/20 09/08/20 COVID-19 09/22/20 Nurse Assessment: Last Vital Signs: BP 139/65 Pulse 65 Temp 97.4 F (36.3 C) (Oral) Resp 16 Ht 5' 8 (1.727 m) Wt 173 lb (78.5 kg) SpO2 96% BMI 26.30 kg/m Last documented pain score (0-10 scale): Pain Level: 7 Last Weight: Wt Readings from Last 1 Encounters: 06/24/22 173 lb (78.5 kg) Mental Status: {IP PT MENTAL STATUS:93318} IV Access: { MILLI IV ACCESS:[id number]} Nursing Mobility/ADLs: Walking {CHP DME ADLs:[id number]} Transfer {CHP DME ADLs:304573008} Bathing {CHP DME ADLs:148942387} Dressing {CHP DME ADLs:811117982} Toileting {CHP DME ADLs:062578301} Feeding {CHP DME ADLs:734760949} Production Control Pegboard Clerk {CHP DME ADLs:662741000} Med Delivery { MILLI MED Delivery:176168110} Wound Care Documentation and Therapy: Incision 06/24/22 Leg Left (Active) Dressing Status Intact;Dry;Clean 06/26/22 07 Dressing/Treatment Zbigniew wrap;Dry dressing 06/26/22 0706 Closure Other (Comment) 06/26/22 07 Incision Assessment Other (Comment) 06/26/22 0706 Drainage Amount None 06/26/22 0706 Odor None 06/26/22 0706 Jaja-incision Assessment Other (Comment) 06/26/22 0706 Number of days: 2 Incision 12/27/18 Abdomen (Active) Number of days: 1276 Incision 10/13/20 Shoulder Right (Active) Number of days: 620 Elimination: Continence: Bowel: {YES / NO:} Bladder: {YES / NO:} Urinary Catheter: {Urinary Catheter:053024497} Colostomy/Ileostomy/Ileal Conduit: {YES / NO:} Date of Last BM: Intake/Output Summary (Last 24 hours) at 06/26/2022 1205 Last data filed at 06/25/2022 1444 Gross per 24 hour Intake 440 ml Output 600 ml Net -160 ml I/O last 3 completed shifts: In: 440 [P.O.:440] Out: 2575 [Urine:2575] Safety Concerns: { MILLI Safety Concerns:676917832} Impairments/Disabilities: { MILLI Impairments/Disabilities:16540968 3} Nutrition Therapy: Current Nutrition Therapy: { MILLI Diet List:098215642} Routes of Feeding: {[facility] Other Feedings:818835704} Liquids: {[facility] liquid thickness:08743} Daily Fluid Restriction: {[facility] DME Yes amt example:236214654} Last Modified Barium Swallow with Video (Video Swallowing Test): {Done Not Done Date:} Treatments at the Time of Hospital Discharge: Respiratory Treatments: Oxygen Therapy: {Therapy; copd oxygen:40277} Ventilator: { CC Vent List:545272134} Rehab Therapies: {THERAPEUTIC INTERVENTION:8392685858} Weight Bearing Status/Restrictions: {[facility] Weight Bearin} Other Medical Equipment (for information only, NOT a DME order): {EQUIPMENT:095799794} Other Treatments: Patient's personal belongings (please select all that are sent with patient): {[facility] DME Belongings:453801909} RN SIGNATURE: {Esignature:041704879} CASE MANAGEMENT/SOCIAL WORK SECTION Inpatient Status Date: Readmission Risk Assessment Score: Readmission Risk Risk of Unplanned Readmission: 12 Discharging to Facility/ Agency Name: Address: Phone: Fax: Dialysis Facility (if applicable) Name: Address: Dialysis Schedule: Phone: Fax: Rubber Thread Spooler/Ferry Terminal Agent signature: {Esignature:297950813} PHYSICIAN SECTION Prognosis: {Prognosis:6301541542} Condition at Discharge: { Patient Condition:560446791} Rehab Potential (if transferring to Rehab): {Prognosis:6637167105} Recommended Labs or Other Treatments After Discharge: Physician Certification: I certify the above information and transfer of Preston Carrasquillo is necessary for the continuing treatment of the diagnosis listed and that he requires {Admit to Appropriate Level of Care:19721} for {GREATER/LESS:891855274} 30 days. Update Admission H&P: {CHP DME Changes in HandP:565697565} PHYSICIAN SIGNATURE: {Esignature:951783480} The following attachments cannot be sent through Care Everywhere.docusate (oral/rectal) ([place])acetaminophen (oral) ([place])doxycycline (oral/injection) ([place])pregabalin ([place])tramadol ([place])documented in this encounter [employer] Phone: 06-23-2022 Note 1. Large peripherall y enhancing subtalar and tibiotalar joint effusions in communication with a large amount of fluid within and rim enhancement of the medial flexor and peroneal tendon sheaths. The sterility of this fluid is indeterminate. Findings raise concern for septic joint effusions and infectious tenosynovitis involving the medial flexor and peroneal tendons. 2. Moderate to severe cellulitis of the foot and ankle. 3. No aggressive osseous destruction. 4. Diffuse osteopenia and degenerative changes as detailed above. 5. Evidence of remote injury to the medial and lateral malleolus. 6. Mild plantar calcaneal spur. No acute fracture or dislocation. [facility] Evaluation note Diagnosis Chronic pain of left ankle- Primary documented in this encounter [employer] Phone: evaluation note* Diagnosis Septic arthritis of left ankle, due to unspecified organism (HCC)- Primary documented in this encounter [employer] Phone: evaluation note* Diagnosis Acute left ankle pain- Primary Septic arthritis of left ankle, due to unspecified organism (HCC) Post-op pain Other acute postoperative pain Primary hypertension Unspecified essential hypertension ETOH abuse Alcohol abuse, unspecified Restless leg syndrome Restless legs syndrome (RLS) Hyponatremia Hyposmolality and/or hyponatremia documented in this encounter [employer] Phone: evaluation note* Diagnosis Post-op pain- Primary Other acute postoperative pain documented in this encounter [employer] Phone: evaluation note* Diagnosis Septic arthritis of left ankle, due to unspecified organism (HCC) documented in this encounter [employer] Phone: evaluation note* Diagnosis Septic arthritis of left ankle, due to unspecified organism (HCC) documented in this encounter [employer] Phone: evaluation note* Diagnosis Septic arthritis of left ankle, due to unspecified organism (HCC) documented in this encounter [employer] Phone: evaluation note* Diagnosis Septic arthritis of left ankle, due to unspecified organism (HCC) documented in this encounter [employer] Phone: evaluation note* Diagnosis Septic arthritis of left ankle, due to unspecified organism (HCC)- Primary Posterior tibial tendinitis of left leg Tibialis tendinitis documented in this encounter [employer] Phone: evaluation note* Diagnosis Septic arthritis of left ankle, due to unspecified organism (HCC)- Primary documented in this encounter [employer] Phone: evaluation note* Diagnosis Septic arthritis of left ankle, due to unspecified organism (HCC)- Primary documented in this encounter [employer] Phone: evaluation note* Diagnosis Septic arthritis of left ankle, due to unspecified organism (HCC)- Primary documented in this encounter [employer] Phone: evaluation note* Diagnosis Septic arthritis of left ankle, due to unspecified organism (HCC)- Primary documented in this encounter [employer] Phone: evaluation note* Diagnosis Septic arthritis of left ankle, due to unspecified organism (HCC)- Primary documented in this encounter [employer] Phone: evaluation note* Diagnosis Septic arthritis of left ankle, due to unspecified organism (HCC)- Primary documented in this encounter [employer] Phone: evaluation note* Diagnosis Septic arthritis of left ankle, due to unspecified organism (HCC)- Primary documented in this encounter [employer] Phone: evaluation note* Diagnosis Septic arthritis of left ankle, due to unspecified organism (HCC)- Primary documented in this encounter [employer] Phone: evaluation note* Diagnosis Septic arthritis of left ankle, due to unspecified organism (HCC)- Primary documented in this encounter [employer] Phone: evaluation note* Diagnosis Left ankle pain, unspecified chronicity Septic arthritis of left ankle Pyogenic arthritis, ankle and foot Chronic osteomyelitis of left ankle [facility] Diagnosis Chronic osteomyelitis of left ankle- Primary Chronic osteomyelitis of left ankle Septic arthritis of left ankle Pyogenic arthritis, ankle and foot Bacteremia Acute postoperative pain Other acute postoperative pain [facility] Diagnosis Dyspnea, unspecified type- Primary documented in this encounter [employer] Phone: evaluation note* Diagnosis Postop check- Primary Follow-up examination, following unspecified surgery 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 ankle Unspecified arthropathy, ankle and foot Arthritis of left subtalar joint [facility] Diagnosis Staphylococcal arthritis of left ankle- Primary Arthritis of left subtalar joint Arthritis of first metatarsophalangeal (MTP) joint of left foot 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 ankle Unspecified arthropathy, ankle and foot Arthritis of left subtalar joint [facility] Diagnosis 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 ankle Unspecified arthropathy, ankle and foot Arthritis of left subtalar joint [facility] Diagnosis Pre-op evaluation- Primary Preoperative examination, unspecified Essential hypertension Unspecified essential hypertension Alcohol use Other problems related to lifestyle RLS (restless legs syndrome) Restless legs syndrome (RLS) Lumbar radiculopathy Thoracic or lumbosacral neuritis or radiculitis, unspecified Hyponatremia Hyposmolality and/or hyponatremia Arthritis of left ankle Unspecified arthropathy, ankle and foot Arthritis of left subtalar joint [facility] Diagnosis Acute postoperative pain- Primary Other acute postoperative pain Pre-op evaluation Preoperative examination, unspecified Arthritis of left ankle Unspecified arthropathy, ankle and foot 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 ankle Unspecified arthropathy, ankle and foot [facility] Diagnosis Arthritis of left ankle- Primary Unspecified arthropathy, ankle and foot [facility] this [facility] Diagnosis Arthritis of left ankle- Primary Unspecified arthropathy, ankle and foot Arthritis of left ankle Unspecified arthropathy, ankle and foot documented [facility] Diagnosis Arthritis of left ankle Unspecified arthropathy, ankle and foot documented [facility] this [facility]* Diagnosis Left ankle pain, unspecified chronicity- Primary Left ankle pain, unspecified chronicity [facility]* Diagnosis Left ankle pain, unspecified chronicity [facility]* Diagnosis Acute on chronic midline low back pain without sciatica- Primary documented in this encounter [facility] note* Diagnosis Chronic pain in left foot- Primary Pain in limb S/P Left tibiotalocalcaneal arthrodesis Other postprocedural status Arthritis of first metatarsophalangeal (MTP) joint of left foot S/P Left tibiotalocalcaneal arthrodesis Other postprocedural status Chronic pain in left foot Pain in limb [facility] Diagnosis S/P Left tibiotalocalcaneal arthrodesis- Primary Other postprocedural status Chronic pain in left foot Pain in limb Arthritis of first metatarsophalangeal (MTP) joint of left foot S/P Left tibiotalocalcaneal arthrodesis Other postprocedural status Chronic pain in left foot Pain in limb [facility] Diagnosis S/P Left tibiotalocalcaneal arthrodesis Other postprocedural status Chronic pain in left foot Pain in limb [facility] Diagnosis Arthropathy of ankle and foot Unspecified arthropathy, ankle and foot documented in this [facility]* Attachments The following attachments cannot be sent through Care Everywhere. * Joint Pain ([place]) [facility] Phone: Hospital Discharge instructions* Attachments The following attachments cannot be sent through Care Everywhere. * Pain Post-Surgery: Acute ([place]) documented in this encounterB[facility] [place] Phone: Hospital Discharge instructions* Attachments The following attachments cannot be sent through Care Everywhere. * Pain and Pain Control ([facility]) ([place]) [facility] (narrative)* (Routine) Specialty Diagnoses / Procedures Referred By Jamila brown Referred To Contact [facility] [address] [address] Referral ID Status Reason Start Date Expiration Date Visits Re quested Visits Authorized * (Routine) - New Request Specialty Diagnoses / Procedures Referred By Jamila brown Referred To Contact Procedures DVT/VTE RISK ASSESSMENT Cristopher Moreira MD [address] [place] [phone] Referral ID Status Reason Start Date Expiration Date V isits Requested Visits Authorized [id number] New Request 02/28/2023 03/24/2024 1 1 * Radiology (Routine) - New Request Specialty Diagnoses / Procedures Referred By Jamila brown Referred To Contact Procedures US IMAGING OR Cristopher Moreira MD [address] [place] [address] Referral ID Status Reason Start Date Expiration Date V isits Requested Visits Authorized [id number] New Request 02/28/2023 03/24/2024 1 1 [facility] for referral (narrative)* Consultation (Routine) - Patient to Arrange Specialty Diagnoses / Procedures Referred By Jamila brown Referred To Contact Orthopaedic Surgery Diagnoses S/P ankle arthrodesis Chronic pain in left foot Cristopher Moreira MD [address] [place] [address] Referral ID Status Reason Start Date Expiration Date V isits Requested Visits Authorized [id number] Patient to Arrange 06/20/2024 07/15/2025 1 1 [facility] for visit Narrative* Treatment Plan and Therapy Plan (Routine) - Open Specialty Diagnoses / Procedures Referred By Jamila brown Referred To Contact Diagnoses Septic arthritis of left ankle, due to unspecified organism (HCC) Akil Saini, DPM [address] [place] [address] [facility] [address] [place] [id number] Referral ID Status Reason Start Date Expiration Date Visits Re quested Visits Authorized [id number] Open 11/25/2022 11/25/2023 1 1 [facility] [employer] Phone: reason for visit Narrative* Auth/Cert Specialty Diagnoses / Procedures Referred By Jamila brown Referred To Contact Diagnoses Septic arthritis of left ankle Chronic osteomyelitis of left ankle Septic arthritis of left ankle [M00.9] Chronic osteomyelitis of left ankle [M86.672] Procedures MD ANKLE SCOPE,PART DEBRIDEMENT MD DRAIN LEG/ANKLE BONE FOR INFECT MD INSERTION DRUG DELIVERY IMPLANT MD ARTHROSCOPY SUBTALAR JOINT WITH DEBRIDEMENT ARTHROSCOPY ANKLE W/ DEBRIDEMENT I&D BONE CORTEX ANKLE LEG INSERTION IMPLANT NONBIODEGRADABLE DRUG DELIVERY ARTHROSCOPY SUBTALAR JOINT W/ DEBRIDEMENT Cristopher Moreira MD [address] [place] [address] [facility] [address] [place] [address] Referral ID Status Reason Start Date Expiration Date Visits Re quested Visits Authorized [id number] 1 1 [facility] Summary Purpose Family History No Family History Records FoundNo Family History Records FoundNo Family History Records FoundNo Family History Records FoundNo Family History Records FoundNo Family History Records Found Advance Directives No Advanced Directives Records FoundDocuments on File Type Date Recorded 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 Advance Directives and Living Will Power of Lamina Searcher Documents on File Type Date Recorded 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 Advance Directives and Living Will Power of Lamina Searcher Documents on File Type Date Recorded 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 ACP-Advance Directive ACP-Power of Lamina Searcher Latest Code Status on File Code Status Date Activated Date Inactivated Comments Full Code 08/11/2020 12:07 PM Latest Code Status on File Code Status Date Activated Date Inactivated Comments Full Code 09/08/2020 11:39 AM Full Code 08/11/2020 12:07 PM 08/11/2020 3:02 PM Documents on File Type Date Recorded 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 ACP-Advance Directive ACP-Power of Lamina Searcher Latest Code Status on File Code Status Date Activated Date Inactivated Comments Full Code 09/08/2020 11:39 AM 09/08/2020 4:07 PM Full Code 08/11/2020 12:07 PM 08/11/2020 3:02 PM Latest Code Status on File Code Status Date Activated Date Inactivated Comments Full Code 10/13/2020 5:35 PM Full Code 09/08/2020 11:39 AM 09/08/2020 4:07 PM Latest Code Status on File Code Status Date Activated Date Inactivated Comments Full Code 10/13/2020 5:35 PM 10/13/2020 9:11 PM Full Code 09/08/2020 11:39 AM 09/08/2020 4:07 PM Latest Code Status on File Code Status Date Activated Date Inactivated Comments Full Code 06/24/2022 2:47 AM Full Code 06/24/2022 2:47 AM 06/24/2022 2:47 AM Full Code 10/13/2020 5:35 PM 10/13/2020 9:11 PM Latest Code Status on File Code Status Date Activated Date Inactivated Comments Full Code 06/24/2022 2:47 AM 06/26/2022 4:17 PM Full Code 06/24/2022 2:47 AM 06/24/2022 2:47 AM Full Code 10/13/2020 5:35 PM 10/13/2020 9:11 PM Latest Code Status on File Code Status Date Activated Date Inactivated Comments Full Code 08/09/2022 4:19 AM 08/11/2022 7:30 PM Full Code 06/24/2022 2:47 AM 06/26/2022 4:17 PM Latest Code Status on File Code Status Date Activated Date Inactivated Comments Full Code 08/09/2022 4:19 AM 08/11/2022 7:30 PM Full Code 06/24/2022 2:47 AM 06/26/2022 4:17 PM Latest Code Status on File Code Status Date Activated Date Inactivated Comments Full Code 08/09/2022 4:19 AM 08/11/2022 7:30 PM Code Status History Code Status Date Activated Date Inactivated Comments Full Code 06/24/2022 2:47 AM 06/26/2022 4:17 PM Full Code 06/24/2022 2:47 AM 06/24/2022 2:47 AM Full Code 10/13/2020 5:35 PM 10/13/2020 9:11 PM Full Code 09/08/2020 11:39 AM 09/08/2020 4:07 PM Latest Code Status on File Code Status Date Activated Date Inactivated Comments Full Code 09/29/2023 1:35 PM 09/29/2023 5:05 PM Code Status History Code Status Date Activated Date Inactivated Comments Full Code 08/09/2022 4:19 AM 08/11/2022 7:30 PM Full Code 06/24/2022 2:47 AM 06/26/2022 4:17 PM Full Code 06/24/2022 2:47 AM 06/24/2022 2:47 AM Full Code 10/13/2020 5:35 PM 10/13/2020 9:11 PM Date Activated Date Inactivated Comments 09/29/2023 1:35 PM 09/29/2023 5:05 PM Date Activated Date Inactivated Comments 08/09/2022 4:19 AM 08/11/2022 7:30 PM Date Activated Date Inactivated Comments 06/24/2022 2:47 AM 06/26/2022 4:17 PM Date Activated Date Inactivated Comments 06/24/2022 2:47 AM 06/24/2022 2:47 AM Date Activated Date Inactivated Comments 10/13/2020 5:35 PM 10/13/2020 9:11 PM History of Present Illness * Vimal Mina - 07/08/2019 4:47 PM EDT [facility] Outpatient Physical Therapy Daily Note Patient: Preston Carrasquillo : 1955 CSN #: [id number] Referring Practitioner: Deena Madison MD; Blayne Rodriguez MD Referral Date : 05/17/19 Date: 07/08/2019 Diagnosis: 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 States it popping with pain. Current pain is 6/10. Exercises: Exercise 2: purple ball on wall, mini circles Exercise 9: Cybe rows-- 4pl 15x ea handle Exercise 11: joystick x20 each direction Exercise 19: ER/ IR OTB 15x ea , SL ER 1#, serratus punches 5# 15x2 PROM: left shld Modalities: Cryotherapy (Minutes\Location): to shld for pain for pain x 15 min E-stim (parameters): IFC+MHP x15 L shoulder for pain Assessment Assessment: Crepitus anterior left shld during active and passive flexion. Modified exercise due topain. No change in Active or Passive ROM. IFC/cp for pain control. Pt advised to watch overhead useof left shld Patient Education Patient Education: Avoid impingement zones Pt verbalized/demonstrated good understanding: [x] Yes [] No, pt required further clarification. Post Treatment Pain: 6/10 Plan Times per week: 2 Plan weeks: 6 Goals (Total # of Visits to Date: 6) Short Term Goals - Time Frame for Short term goals: 3 weeks Short term goal 1: Pt will initiate HEP. -MET []Met []Partially met []Not met Short term goal 2: Pt will demonstrate ability to perform 8 sit to stands without UE assist to improve LE functional strength. -MET []Met []Partially met []Not met Short term goal 3: Pt will initiate core strengthening and lumbar stabilization exercises to assistwith decreasing LBP. -MET []Met []Partially met []Not met Short term goal 4: Pt will initiate RTC strengthening to improve shoulder stability. 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 -MET []Met []Partially met []Not met senior living goal 2: Pt will perform >12 sit to stands in 30 seconds without use of UE assist for improved LE functional strength. -MET (18 sit to stands) []Met []Partially met []Not met senior living goal 3: Pt will demonstrate ability to maintain DL lift for >15 seconds without LBP toindicate improved core strength. -PROGRESSING (5 sec with no LBP) []Met []Partially met []Not met ferry terminal agent goal 4: Pt will improve R quad and HS strength to 4/5 for ease of stair navigation. -MET []Met []Partially met []Not met ferry terminal agent goal 5: Pt will improve L shld strength grossly to 4- to 4/5 for ease of work-related tasks. []Met []Partially met []Not met Minutes Tracking: Time In: 1615 Time Out: 1700 Minutes: 45 Vimal Mina POWER GENERATING PLANT OPERATOR Date: 07/08/2019 documented in this encounter* Vimal Mina - 07/30/2019 10:04 AM EDT [facility] Inpatient/Observation/Outpatient Rehabilitation Date: 07/29/2019 Patient Name: Preston Carrasquillo [] Inpatient Acute/Observation [x] Outpatient : 1955 [x] Pt no showed for scheduled appointment [] Pt refused/declined therapy at this time due to: [] Pt cancelled due to: [] No Reason Given [] Sick/ill [] Other: Will attempt evaluation at our earliest opportunity. Vimal ManciarezatariqPTA Date: 07/29/2019 documented in this encounter* Gabriel Cortes RN - 08/11/2020 12:59 PM EDT Discharge instructions given to patient with understanding voiced. Released per ambulatory from Surgery department. * Gabriel Cortes RN - 08/11/2020 12:52 PM EDT Back injection site band aids clean and dry documented in this encounter* Dorys Whatley RN - 09/08/2020 1:58 PM EDT Discharge Criteria Inpatients must meet Criteria 1 through 7. All other patients are either YES or N/A. If a NO is chosen then Anesthesia or Surgeon must be notified. 1. Minimum 30 minutes after last dose of sedative medication, minimum 120 minutes after last dose of reversal agent. Yes 2. Systolic BP stable within 20 mmHg for 30 minutes & systolic BP between 90 & 180 or within 10 mmHg of baseline. Yes 3. Pulse between 60 and 100 or within 10 bpm of baseline. Yes 4. Spontaneous respiratory rate >/= 10 per minute. Yes 5. SaO2 >/= 95 or >/= baseline. Yes 6. Able to cough and swallow or return to baseline function. Yes 7. Alert and oriented or return to baseline mental status. Yes 8. Demonstrates controlled, coordinated movements, ambulates with steady gait, or return to baseline activity function. Yes 9. Minimal or no pain or nausea, or at a level tolerable and acceptable to patient. Yes 10. Takes and retains oral fluids as allowed. Yes 11. Procedural / perioperative site stable. Minimal or no bleeding. Yes 12. If GI endoscopy procedure, minimal or no abdominal distention or passing flatus. n/a 13. Written discharge instructions and emergency telephone number provided. Yes 14. Accompanied by a responsible adult. Yes * Dorys Whatley RN - 09/08/2020 1:55 PM EDT Discharge instructions reviewed with patient and patient's spouse. Both imply understanding. documented in this encounter* Suzanne Antonio RN - 10/13/2020 7:01 PM EST Patient discharged at this time. Transported downstairs to personal vehicle via wheelchair with no difficulty at this time. * Luh Varma RN - 10/13/2020 6:15 PM EST Patients discharge instructions reviewed with patient at this time. Once patients returns fromfilling patients prescriptions, he will need assistance changing into his street clothing and he may go. All questions answered and patient had story writer sign discharge paperwork since his surgical shoulder is the one he writes with and is in a sling. * Luh Varma RN - 10/13/2020 6:00 PM EST given paper prescriptions that were provided by Dr. Cunha. Patient okay to be discharged whenever he is ready. Cr[employer]acker called up a meal for him and he is eating it at this time. * Yovanny Cunha MD - 10/13/2020 5:27 PM EST Department of Orthopedic Surgery Progress Note Subjective: No complaints. Doing well postoperatively. Denies pain Vitals VITALS: BP 127/77 Pulse 79 Temp 98 F (36.7 C) (Temporal) Resp 16 Ht 5' 7.5 (1.715 m) Wt 165 lb (74.8 kg) SpO2 93% BMI 25.46 kg/m PHYSICAL EXAM: General: in no apparent distress, alert and oriented times 3 Right Upper Extremity Incision: dressing in place, clean, dry and intact Neurologic: Moving upper extremity as appropriate following sugery. Motor function intact. Sensation grossly intact to light touch. Vascular: present 2+ radial pulse Abnormal Exam findings: none LABS: Hgb: Lab Results Component Value Date HGB 14.5 10/13/2020 ASSESSMENT AND PLAN: Post operative day 0 status post right reverse total shoulder arthroplasty. 1: Continue sling 2: Continue Deep venous thrombosis prophylaxis 3: Physical therapy 4: D/C Plan: Home 5: Continue Pain Control 6: Patient would like to go home this evening. Patient reports that he has required 2 Percocet every 4 hours for adequate pain control following previous shoulder surgeries. Advised that I will prescribe 1 Percocet every 4 hours and if pain control is inadequate, he can call me. * Luh Varma RN - 10/13/2020 5:15 PM EST [facility] this time to room [address] Cunha spoke with story writer and states that it is okay for him to go home when the patient is ready. Patients vitals taken, assessment completed, and a dinner ordered from the cafeteria. Written scripts given to patients for her to fill while he eats. Will begin on discharge paperwork momentarily. Patient denies pain or otherneeds. Capillary refill is less than three seconds and patient is able to wiggle fingers. * Dorys Whatley RN - 10/13/2020 5:05 PM EST Discharge Criteria Inpatients must meet Criteria 1 through 7. All other patients are either YES or N/A. If a NO is chosen then Anesthesia or Surgeon must be notified. 1. Minimum 30 minutes after last dose of sedative medication, minimum 120 minutes after last dose of reversal agent. Yes 2. Systolic BP stable within 20 mmHg for 30 minutes & systolic BP between 90 & 180 or within 10 mmHg of baseline. Yes 3. Pulse between 60 and 100 or within 10 bpm of baseline. Yes 4. Spontaneous respiratory rate >/= 10 per minute. Yes 5. SaO2 >/= 95 or >/= baseline. Yes 6. Able to cough and swallow or return to baseline function. Yes 7. Alert and oriented or return to baseline mental status. Yes 8. Demonstrates controlled, coordinated movements, ambulates with steady gait, or return to baseline activity function. N/A 9. Minimal or no pain or nausea, or at a level tolerable and acceptable to patient. N/A 10. Takes and retains oral fluids as allowed. N/A 11. Procedural / perioperative site stable. Minimal or no bleeding. N/A 12. If GI endoscopy procedure, minimal or no abdominal distention or passing flatus. N/A 13. Written discharge instructions and emergency telephone number provided. N/A 14. Accompanied by a responsible adult. N/A * Joyce Vick RN - 09/29/2020 12:24 PM EST Patient instructed on the pre-operative, intra-operative, and post-operative process. Patient instructed on NPO status. Medication instructions and Pre operative instruction sheet reviewed over the phone. Instructed pt to stop taking naproxen and multivitamins as of 10/07/20 and to take sinemet with a small sip of water prior to arriving to the hospital the day of surgery. documented in this encounter Hospital Course * Roxana Suazo, PT - 08/27/2019 3:11 PM EDT [facility] Outpatient Physical Therapy Discharge Summary Patient: Preston Carrasquillo : 1955 CSN #: [id number] Referring physician: No admitting provider for patient encounter. 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); Updated 06/11/19 with Nondisplaced fracture of sternal end of left clavicle (S42.018) Date Treatment Initiated: 06/11/19 Date of Last Treatment: 07/08/19 PT Visit Information Onset Date: 05/17/19 PT [place] Information[place] Total # of Visits Approved: 15 Total # of Visits to Date: 6 Plan of Care/Certification Expiration Date: 07/23/19 No Show: 0 Canceled Appointment: 0 Frequency/Duration 2 times per week 6 weeks Treatment Received [x] HP/CP [x] Electrical Stim [x] Therapeutic Exercise [] Gait Training [] Aquatics [x] Ultrasound [x] Patient Education/HEP [x] Manual Therapy [] Traction [x] Neuro-mira [x] Soft Tissue Mobs [] Home TENS [] Iontophoresis [] Orthotic casting/fitting [] Dry Needling Assessment Assessment: Patient attended 6 PT visits for general weakness and LBP and met goals for improved R LE strength and improved functional strength with sit/stands and independence with HEP. Patient madegood progress toward remaining goals for improved core and L shoulder strength but no-showed 4 consecutive PT visits and remaining visits were then cancelled per policy. Will d/c patient at this time. Goals Short term goals Time Frame for Short term goals: 3 weeks Short term goal 1: Pt will initiate HEP. -MET Short term goal 2: Pt will demonstrate ability to perform 8 sit to stands without UE assist to improve LE functional strength. -MET Short term goal 3: Pt will initiate core strengthening and lumbar stabilization exercises to assistwith decreasing LBP. -MET Short term goal 4: Pt will initiate RTC strengthening to improve shoulder stability. 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 -MET senior living goal 2: Pt will perform >12 sit to stands in 30 seconds without use of UE assist for improved LE functional strength. -MET (18 sit to stands) senior living goal 3: Pt will demonstrate ability to maintain DL lift for >15 seconds without LBP toindicate improved core strength. 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 -MET ferry terminal agent goal 5: Pt will improve L shld strength grossly to 4- to 4/5 for ease of work-related tasks. Reason for Discharge [] Goals Achieved [x] Poor Follow Through/Attendance [x] Optimal Function Achieved [x] Patient Discharged Self [] Hospitalization [] Physician discharge Thank you for this referral Shaela K Lakeisha, PT, DPT Date: 08/27/2019 documented in this encounter Discharge Instructions * Instructions* Azul Carreon PA-C - 09/28/2019 Call to arrange follow-up with your primary care provider on Monday. * Attachments The following attachments cannot be sent through Care Everywhere. * Cough (South Korean) documented in this encounter* Instructions* Azul Carreon PA-C - 09/30/2019 Call to arrange follow up with your doctor this week. * Attachments The following attachments cannot be sent through Care Everywhere. * Cough (South Korean) documented in this encounter* Instructions* Gabriel Cortes RN - 08/11/2020 PAIN MANAGEMENT DISCHARGE INSTRUCTIONS 1. If your bandage becomes soaked with bright red blood, place another dressing pad over your bandages (DO NOT remove original bandages). Call your surgeon for further instructions. A small amount ofbright red blood is to be expected. 2. Continue normal activities. 3. Notify your doctor immediately of any of the following: Excessive swelling of , or around the wound area. Redness. Temperature of 100 degrees (F) or above. Excessive pain. Any questions regarding your surgery. 4. Monitor your pain by completing the Pain Diary using the [place] Pain Scale provided to you at [facility]. Remember in order to accurately assess your pain you need to attempt to reproduce the pain by doingthe movements or activities that have triggered the pain previously. When assessing your pain, be accurate and objective. This is not the time for wishful thinking. 5. Dr. Montejo's office will call you to schedule a follow-up visit. documented in this encounter* Instructions* Dorys Whatley RN - 09/08/2020 PAIN MANAGEMENT DISCHARGE INSTRUCTIONS 1. Do not drive or operate hazardous machinery for 24 hours. 2. Do not make any important personal or business decisions for 24 hours. 3. Do not drink alcoholic beverages for 24 hours. 4. Do not smoke tobacco products for 24 hours. 5. If your bandage becomes soaked with bright red blood, place another dressing pad over your bandages (DO NOT remove original bandages). Call your surgeon for further instructions. A small amount ofbright red blood is to be expected. 6. Continue normal activities. 7. Notify your doctor immediately of any of the following: Excessive swelling of , or around the wound area. Redness. Temperature of 100 degrees (F) or above. Excessive pain. Any questions regarding your surgery. Remember in order to accurately assess your pain you need to attempt to reproduce the pain by doingthe movements or activities that have triggered the pain previously. 8. Dr. Montejo's office will call you to schedule a follow-up visit. documented in this encounter* Discharge Instr - Activity* Luh Varma RN - 10/13/2020 6:00 PM EST Activity as tolerated. * Discharge Instr - Diet* Luh Varma RN - 10/13/2020 6:00 PM EST ? Good nutrition is important when healing from an illness, injury, or surgery. Follow any nutrition recommendations given to you during your hospital stay. ? If you were given an oral nutrition supplement while in the hospital, continue to take this supplement at home. You can take it with meals, in-between meals, and/or before bedtime. These supplements can be purchased at most local grocery stores, pharmacies, and chain super-stores. ? If you have any questions about your diet or nutrition, call the hospital and ask for the dietitian. General diet as tolerated. * Additional Instructions* Yovanny Cunha MD - 10/13/2020 ORTHO SURGERY DISCHARGE INSTRUCTIONS 1. Do not drive or operate hazardous machinery for 24 hours. 2. Do not make important personal or business decisions for 24 hours. 3. Do not drink alcoholic beverages. 4. Do not smoke tobacco products. 5. Eat light foods (Jell-O, soups, etc....) and drink plenty of fluids (water, Sprite, etc...) up to 8 glasses per day, as you can tolerate. 6. If your bandages become soaked with bright red blood, place another dressing pad over your bandages. (DO NOT remove original bandage.) Call your surgeon for further instructions. A small amount ofbright red blood is to be expected. 7. Limit your activities for 24 hours. Do not engage in heavy work until your surgeon gives you permission. 8. Report the following signs or any questions regarding your physical condition to your surgeon immediately: Excessive swelling of, or around the wound area. Redness. Temperature of 100 degrees (F) or above. Excessive pain. 9. Call your surgeon at the office, , for any questions regarding your surgery. For urgent concerns after office hours, you may call Dr. Cunha on his cell phone, [phone]. 10. Follow-up with your surgeon and physical therapy as scheduled. SPECIAL INSTRUCTIONS AND MEDICATIONS 1. Maintain shoulder in sling, except for dressing, grooming and home exercises. 2. Move fingers/toes to improve circulation. 3. Use ibuprofen and/or Tylenol for pain. You may also use prescribed pain pill (which also includes tylenol) as directed by the doctor. Do not take more than 3,000 mg tylenol in a day. 4. Keep your dressing on and dry. You may shower over the waterproof dressing if it remains sealed. 5. Wear JOLIE hose until directed by your surgeon. You may remove them to shower. 6. Take Aspirin 325 mg daily for 4 weeks. documented in this encounter Assessments Diagnosis Cough- Primary Diagnosis Low back pain, unspecified back pain laterality, unspecified chronicity, unspecified whether sciatica present Diagnosis Pre-op testing Preoperative examination, unspecified Diagnosis Postoperative pain Other acute postoperative pain Right rotator cuff tear arthropathy Reason for Referral Status Reason Specialty Diagnoses / Procedures Referre d By Contact Referred To Contact Open Radiology Diagnoses Low back pain, unspecified back pain laterality, unspecified chronicity, unspecified whether sciatica present Procedures MRI LUMBAR SPINE W WO Sol Hurt MD [address] [place] [id number] Specialty Diagnoses / Procedures Referred By Jamila brown Referred To Contact Diagnoses Staphylococcal arthritis of left ankle Procedures XR ANKLE LEFT 3+ VIEWS Cristopher Moreira MD [address] [place] [phone] Referral ID Status Reason Start Date Expiration Date V isits Requested Visits Authorized [id number] New Request 12/22/2022 01/16/2024 1 1 Specialty Diagnoses / Procedures Referred By Contac t Referred To Contact Social Work Diagnoses Chronic osteomyelitis of left ankle Queenie Muniz OUTSOLE COMPRESSOR-PHYSICAL MEDICINE SPECIALIST [address] [place] [address] Referral ID Status Reason Start Date Expiration Date V isits Requested Visits Authorized [id number] New Request 01/02/2023 01/27/2024 1 1 Specialty Diagnoses / Procedures Referred By Contac t Referred To Contact Diagnoses Chronic osteomyelitis of left ankle Queenie Muniz OUTSOLE COMPRESSOR-PHYSICAL MEDICINE SPECIALIST [address] [place] [id number] Referral ID Status Reason Start Date Expiration Date V isits Requested Visits Authorized [id number] New Request 01/02/2023 01/27/2024 1 1 Specialty Diagnoses / Procedures Referred By Contac t Referred To Contact Queenie Muniz APRN-PHYSICAL MEDICINE SPECIALIST [address] [place] [address] Referral ID Status Reason Start Date Expiration Date Visits Re quested Visits Authorized Specialty Diagnoses / Procedures Referred By Contac t Referred To Contact [facility] [address] [place] [address] Specialty Diagnoses / Procedures Referred By Contac t Referred To Contact Diagnoses Arthritis of left subtalar joint Procedures XR ANKLE LEFT 3+ VIEWS Cristopher Moreira MD [address] [place] [address] Referral ID Status Reason Start Date Expiration Date V isits Requested Visits Authorized [id number] New Request 02/13/2023 03/09/2024 1 1 Specialty Diagnoses / Procedures Referred By Contac t Referred To Contact Diagnoses Arthritis of left subtalar joint Procedures XR FOOT LEFT 3 VIEWS Cristopher Moreira MD [address] [place] [address] Referral ID Status Reason Start Date Expiration Date V isits Requested Visits Authorized [id number] New Request 02/13/2023 03/09/2024 1 1 Specialty Diagnoses / Procedures Referred By Contac t Referred To Contact Diagnoses Pre-op evaluation Procedures ECG Carissa Noel, OUTSOLE COMPRESSOR-PHYSICAL MEDICINE SPECIALIST [address] [place] [address] Referral ID Status Reason Start Date Expiration Date V isits Requested Visits Authorized [id number] New Request 02/22/2023 03/18/2024 1 1 Specialty Diagnoses / Procedures Referred By Contact Referred To Contact [facility] Diagnoses Arthritis of left ankle Majo Nelson, OUTSOLE COMPRESSOR-PHYSICAL MEDICINE SPECIALIST [address] [place] [address] Referral ID Status Reason Start Date Expiration Date V isits Requested Visits Authorized [id number] New Request 05/04/2023 05/28/2024 1 1 Scheduling Instructions [facility] at [address] Room: [address] [address] [phone] FAX [facility] [place] [address] [place] [address] FAX [facility] at [facility] [address] [place], [place] [address] FAX [facility] [place] [address] [facility] [address] [place], [place] [address] FAX [facility] [address] [place] [address] FAX Outpatient Rehabilitation [facility] [place] [address] [facility] [address] [facility], [address] [place] [address] FAX [facility] [address] [facility] [address] [place] [address] FAX Continued on next page [facility] [place] [address] [facility], [place] [address] FAX [facility] [address] [place] [address] FAX Outpatient Rehabilitation Outpatient [facility] [place] [id number] [facility] [address] [place] [address] [phone] FAX [facility] at [facility] [address] [place] [address] FAX Outpatient Care [facility] [address] [place] [address] FAX [facility] at [facility], Room [address] [place] [address] [phone] FAX Specialty Diagnoses / Procedures Referred By Contac t Referred To Contact Diagnoses Left ankle pain, unspecified chronicity Procedures XR ANKLE LEFT 3+ VIEWS Majo Nelson, OUTSOLE COMPRESSOR-PHYSICAL MEDICINE SPECIALIST [address] [place] [address] Referral ID Status Reason Start Date Expiration Date V isits Requested Visits Authorized [id number] New Request 06/13/2023 07/07/2024 1 1 Referral ID Status Reason Start Date Expiration Date V isits Requested Visits Authorized [id number] New Request 09/14/2023 10/08/2024 1 1 Specialty Diagnoses / Procedures Referred By Contac t Referred To Contact Radiology Diagnoses Arthropathy of ankle and foot Procedures CT ANKLE LEFT WO CONTRAST Anant Malik, SOFIA [address] [facility] [address] [place] [address] Referral ID Status Reason Start Date Expiration Date Visits Re quested Visits Authorized [id number] Closed 07/18/2024 07/31/2025 1 1 Additional Source Comments (unrecognized sect ion and content) No Status Records FoundNo Status Records FoundNo Status Records FoundNo Status Records FoundNo Status Records FoundNo Status Records Found INFORMATION SOURCE (unrecogn ized section and content) DATE CREATED AUTHOR 11/01/2018 [facility] DATE CREATED AUTHOR AUTHOR'S ORGANIZ ATION 09/16/2021 [facility] DATE CREATED AUTHOR AUTHOR'S ORGANIZ ATION 09/07/2022 [facility] DATE CREATED AUTHOR AUTHOR'S ORGANIZ ATION 04/25/2024 [facility] DATE CREATED AUTHOR AUTHOR'S ORGANIZ ATION 08/19/2024 [facility] DATE CREATED AUTHOR AUTHOR'S ORGANIZ ATION 09/04/2024 [facility] Reason for Visit (unrecogniz ed section and content) Status Reason Specialty Diagnoses / Procedures Referre d By Contact Referred To Contact Diagnoses Pain in left shoulder [facility] Physical [facility] [address] [place] [address] [facility] Reason Comments Cough been going on for ab out a week Nasal Congestion states i've tried e verything over the counter and nothing is working Reason Comments Cough pt states he was giv en a pill for coughing a few days ago and he states his cough is not better Status Reason Specialty Diagnoses / Procedures Referre d By Contact Referred To Contact Closed Radiology Diagnoses Low back pain Procedures HC MRI-SPINE LUMBAR WO CONTRAST HC MRI-SPINE LUMBAR WO & W CONT Sol Corrigan MD [address] [place] [address] [facility] M[facility] [address] [place] [address] Status Reason Specialty Diagnoses / Procedures Referre d By Contact Referred To Contact Diagnoses Lumbar spondylosis LUMBAR SPONDYLOSIS, LUMBAR SACRAL SPONDYLOSIS Procedures MD INJ DX/THER AGNT PARAVERT FACET JOINT, LUMBAR/SAC, 1ST LEVEL MD INJ DX/THER AGNT PARAVERT FACET JOINT, LUMBAR/SAC, 2ND LEVEL LUMBAR FACET, L4-L5 L5-S1 Aroldo Montejo MD [address] [place] [address] [facility] [employer] Status Reason Specialty Diagnoses / Procedures Re ferred By Contact Referred To Contact Diagnoses Spondylosis without myelopathy or radiculopathy, lumbar region LUMBOSACRAL SPONDYLOSIS, LUMBAR SPONDYLOSIS Procedures MD RADIOFREQUENCY NEUROTOMY LUMBAR OR SACRAL, W IMAGE GUIDANCE, SINGLE MD RADIOFREQ NEUROTOMY LUMBAR OR SACRAL, W IMAGE GUIDE,EA ADDL LEVEL LUMBAR RFA-L2, L3, L4, L5 Aroldo Montejo MD [address] [place] [address] [facility] Status Reason Specialty Diagnoses / Procedures Referre d By Contact Referred To Contact Diagnoses Rotator cuff arthropathy of right shoulder ROTATOR CUFF ARTHROPATHY RIGHT SHOULDER Procedures MD RECONSTR TOTAL SHOULDER IMPLANT SHOULDER TOTAL ARTHROPLASTY REVERSE Yovanny Cunha MD [address] [place] [address] [facility] Reason Comments Ankle Pain Left ankle pain, see n at [facility]. Steroid injection and taper given without relief. Reason Comments Ankle Pain Pt c/o left ankle pa in for 5 days. Pt unable to bear wt. Pt denies fall/injury - reports it is d/t old age Specialty Diagnoses / Procedures Referred By Contac t Referred To Contact Diagnoses Acute left ankle pain Septic arthritis of left ankle, due to unspecified organism (HCC) left ankle pain Pardeep Infante A, DO [address] [facility] [address] [place] [address] [facility] [address] [place] [address] Referral ID Status Reason Start Date Expiration Date Visits Re quested Visits Authorized [id number] 1 1 Reason Comments Ankle Pain Left ankle Specialty Diagnoses / Procedures Referred By Contac t Referred To Contact Diagnoses Posterior tibial tendinitis of left leg M76.822 (ICD-10-CM) - Posterior tibial tendinitis of left leg Procedures MD ARTHROSCOPY ANKLE SURGICAL DEBRIDEMENT LIMITED MD ARTHRODESIS SUBTALAR MD RPR PRIMARY DISRUPTED LIGAMENT ANKLE COLLATERAL MD TR/TRNSPL 1 TDN W/[facility] REDIRION/REROUTING DP ANKLE ARTHROSCOPY-WITH DEBRIDEMENT FOOT ARTHRODESIS--STJ ANKLE LIGAMENT TENDON REPAIR--PRIMARY REPAIR OF DELTOID LIGAMENT, FOOT TENDON TRANSFER REPAIR--PRIMARY REPAIR OF PERONEUS BREVIS TENDON WITH POSSIBLE PERONEAL TENDON TRANSFER, FDL TO PT TENDON TRANSFER, COTTON PROCEDURE Akil Saini, DPM [address] [place] [address] [facility] [address] [place] [address] Referral ID Status Reason Start Date Expiration Date Visits Re quested Visits Authorized [id number] 1 1 Specialty Diagnoses / Procedures Referred By Jamila brown Referred To Contact Diagnoses Staphylococcal arthritis of left ankle Procedures XR ANKLE LEFT 3+ VIEWS Cristopher Moreira MD [address] [place] [address] Referral ID Status Reason Start Date Expiration Date V isits Requested Visits Authorized [id number] New Request 12/22/2022 01/16/2024 1 1 Reason Onset Date Comments Medication Problem 01/03/2023 Call back Advice Only 01/03/2023 Reason Comments Cough Cough, SOB while lay ing down the last 3 days Reason Comments Post Op Visit 13d s/p Left ankle a nd subtalar scope with extensive debridement and synovectomy, Left ankle arthrotomy and excisional debridement with craterization of distal tibia for osteomyelitis, Left ankle and subtalar joint placement of antibiotic cement (DOS 12/30/22-) Reports 05/22. Reason Comments Pre-operative Evaluation Here for L foot /ankle pre-op. Patient reports significant increase in pain since he was last seen. Notes bunion on big toe, hopeful to get everything taken care of in one surgery Specialty Diagnoses / Procedures Referred By Jamila brown Referred To Contact Diagnoses Arthritis of left subtalar joint Procedures XR FOOT LEFT 3 VIEWS Cristopher Moreira MD [address] [place] [address] Referral ID Status Reason Start Date Expiration Date V isits Requested Visits Authorized [id number] New Request 02/13/2023 03/09/2024 1 1 Specialty Diagnoses / Procedures Referred By Jamila brown Referred To Contact Diagnoses Arthritis of left subtalar joint Procedures XR ANKLE LEFT 3+ VIEWS Cristopher Moreira MD [address] [place] [address] Referral ID Status Reason Start Date Expiration Date V isits Requested Visits Authorized [id number] New Request 02/13/2023 03/09/2024 1 1 Reason Comments Preoperative Assessment Specialty Diagnoses / Procedures Referred By Jamila t Referred To Contact Diagnoses 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 ankle [M19.072] Arthritis of left subtalar joint [M19.072] Procedures MD ANKLE SCOPE,W/ANKLE ARTHRODESIS MD FUSION FOOT BONES,SUBTALAR MD REMV BONE FOR GRAFT MAJOR ARTHROSCOPY ANKLE W/ ARTHRODESIS ARTHRODESIS TARSAL JOINT HARVEST GRAFT BONE LARGE DONOR AREA Cristopher Moreira MD [address] [place] [address] [facility] [address] [place] [address] Referral ID Status Reason Start Date Expiration Date Visits Re quested Visits Authorized [id number] 1 1 Reason Onset Date Comments Order Request 03/14/2023 Reason Comments Post Op Visit 2w2d Left arthroscop ic ankle arthrodesis, Left subtalar arthrodesis,Left proximal tibia bone graft harvest (DOS 02/28/23) Reason Comments Post Op Visit 9w2d Left arthroscop ic ankle arthrodesis, Left subtalar arthrodesis,Left proximal tibia bone graft harvest (DOS 02/28/23), no pain of note. No new concerns at this time. Reason Comments Follow-up Pt reports doing nunu y well and making improvements. Pt states he starts PT on Monday. Slight pain with activity. He reports still having swelling. Specialty Diagnoses / Procedures Referred By Jamila t Referred To Contact Diagnoses Left ankle pain, unspecified chronicity Procedures XR ANKLE LEFT 3+ VIEWS Majo Nelson, OUTSOLE COMPRESSOR-PHYSICAL MEDICINE SPECIALIST [address] [place] [address] Referral ID Status Reason Start Date Expiration Date V isits Requested Visits Authorized [id number] New Request 06/13/2023 07/07/2024 1 1 Reason Comments Fall Pt tripped over step and fell hitting head. No LOC, no blood thinners. Pain to left elbow (skin tear) and lower back. Reason Onset Date Comments Order Request 08/02/2023 Reason Comments Follow-up 6 months s/p Left an kle sx 02/28/23- Eri- states he is doing really well- does have pain at rest but starts to get pain with WB- no N/T Referral ID Status Reason Start Date Expiration Date V isits Requested Visits Authorized [id number] New Request 09/14/2023 10/08/2024 1 1 Specialty Diagnoses / Procedures Referred By Jamila brown Referred To Contact Diagnoses Posterior tibial tendinitis, unspecified leg [facility] [address] [place] [id number] [facility] [address] [place] [address] Referral ID Status Reason Start Date Expiration Date Visits Re quested Visits Authorized [id number] 1 1 Reason Comments Follow-up Pt reports for 10.5m POV TTC arthrodesis. Pt reports L foot pain. Pt states pain has been present ever since surgery. Pt states pain has been stable since surgery. Pain exacerbated by weightbearing. Follow-up Specialty Diagnoses / Procedures Referred By Jamila brown Referred To Contact Diagnoses Plantar fascial fibromatosis [facility] [address] [place] [address] [facility] [address] [place] [address] Referral ID Status Reason Start Date Expiration Date Visits Re quested Visits Authorized [id number] 1 1 Reason Comments Follow-up Pt reports for L TTC fusion 15m FUV. Pt reports constant pain. Pt reports pain has been getting worse since AMY. Specialty Diagnoses / Procedures Referred By Jamila brown Referred To Contact Radiology Diagnoses Arthropathy of ankle and foot Procedures CT ANKLE LEFT WO CONTRAST Anant Malik, SOFIA [address] [place] [address] Referral ID Status Reason Start Date Expiration Date Visits Re quested Visits Authorized [id number] Closed 07/18/2024 07/31/2025 1 1 Scheduled Active and Recently Administ ered Medications (unrecognized section and content) Medication Order 06/22/2022 06/23/2022 06/24/2022 cefepime (MAXIPIME) 2000 mg IVPB minibag (COMPLETED) 2,000 mg, IntraVENous, at 100 mL/hr, Administer over 30 Minutes, ONCE, On Nat 06/23/22 at 1715, For 1 dose 1730 (New Bag - Provider: Mabel Bojorquez, WILLY)1753 (Stopped - Provider: Mabel Bojorquez, WILLY) HYDROmorphone (DILAUDID) injection 0.5 mg (COMPLETED) HYDROmorphone (DILAUDID) 1.5mg IV is equivalent to morphine 10mg IV, 0.5 mg, IntraVENous, ONCE, 1 dose, On Nat 06/23/22 at 1500, If oral and IV narcotics ordered, use oral first and only use IV if oral is ineffective or cannot take oral. Do Not give oral and IV within 1 hour of each other unless specifically ordered. 1459 (Given - Provider: Mabel Bojorquez, WILLY) HYDROmorphone (DILAUDID) injection 0.5 mg HYDROmorphone (DILAUDID) 1.5mg IV is equivalent to morphine 10mg IV, 0.5 mg, IntraVENous, ONCE, 1 dose, On Nat 06/23/22 at 1745, If oral and IV narcotics ordered, use oral first and only use IV if oral is ineffective or cannot take oral. Do Not give oral and IV within 1 hour of each other unless specifically ordered. 1745 (Due) HYDROmorphone (DILAUDID) injection 0.5 mg (COMPLETED) HYDROmorphone (DILAUDID) 1.5mg IV is equivalent to morphine 10mg IV, 0.5 mg, IntraVENous, ONCE, 1 dose, On Mon06/24/22 at 0015 0020 (Given - Provid er: Manuel Wiseman RN) morphine injection 4 mg (COMPLETED) 4 mg, IntraVENous, ONCE, 1 dose, On Nat 06/23/22 at 1245, If oral and IV narcotics ordered, use oral first and only use IV if oral is ineffective or cannot take oral. Do Not give oral and IV within 1 hour of each other unless specifically ordered. 1243 (Given - Provider: Mabel Bojorquez, WILLY) vancomycin (VANCOCIN) 1,250 mg in dextrose 5 % 250 mL IVPB (COMPLETED) 1,250 mg (15.9 mg/kg), IntraVENous, at 166.7 mL/hr, Administer over 90 Minutes, ONCE, On Nat 06/23/22 at 1715, For 1 dose 1805 (New Bag - Provider: Mabel Bojorquez, WILLY)1939 (Stopped - Provider: Bud Lim, WILLY) PRN Medication Order 06/22/2022 06/23/2022 06/24/2022 iopamidol (ISOVUE-370) 76 % injection 75 mL (COMPLETED) 75 mL, IntraVENous, IMG ONCE PRN, 1 dose, Starting on Nat 06/23/22 at 1343, Until Nat 06/23/22 at 1349, Other 1349 (Given - Provider: Kiersten Alvarez) oxyCODONE (ROXICODONE) immediate release tablet 10 mg 10 mg, Oral, EVERY 6 HOURS PRN, Starting on Nat 06/23/22 at 1735, Until Discontinued, Pain Moderate (4-6) 1912 (Given - Provider: Anayeli Valverde RN) No Frequency Medication Order 06/22/2022 06/23/2022 06/24/2022 dextrose 5 % solution Starting on Nat 06/23/22 at 1755, For 1 dose, Mabel Bojorquez: cabinet override 1800 (Due) vancomycin (VANCOCIN) 1 g injection 1 dose, Starting on Nat 06/23/22 at 1755, Until Mon06/24/22 at 0559, Mabel Bojorquez: cabinet overrideReno Barbara: cabinet override 1800 (Due) vancomycin (VANCOCIN) 500 MG injection 1 dose, Starting on Nat 06/23/22 at 1755, Until Mon06/24/22 at 0559, Mabel Bojorquez: cabinet override, Mabel Bojorquez: cabinet override 1800 (Due) Scheduled Medication Order 06/24/2022 06/25/2022 06/26/2022 0.9 % sodium chloride infusion (COMPLETED) IntraVENous, at 100 mL/hr, ONCE, On 06/25/22 at 0245, For 1 dose 0232 (New Bag - Provider: Heide Estevez RN) acetaminophen (TYLENOL) tablet 650 mg 650 mg, Oral, EVERY 6 HOURS, First dose on Mon06/24/22 at 0315, Until Discontinued, Maximum dose of acetaminophen is 4000 mg from all sources in 24 hours. 0323 (Given - Provider: Heide Estevez RN)0805 (Given - Provider: Ximena Crow RN)0956 (MAR Hold - Provider: Mar Autohold - Reason: Unreviewed Transfer Orders)1418 (MAR Unhold - Provider: Ximena Crow, WILLY)1500 (Given - Provider: Ximena Crow RN)2129 (Given - Provider: Heide Estevez RN) 0331 (Given - Provider: Heide Estevez RN)0837 (Given - Provider: Ximena Crow, WILLY)1406 (Given - Provider: Ximena Crow RN)202 (Given - Provider: Aleah Rose, WILLY) 0303 (Not Given - Provider: Aleah Rose RN - Reason: Patient/family refused)0812 (Given - Provider: Ximena Crow RN)1515 (Due)2115 (Due) carbidopa-levodopa (SINEMET) 25-100 MG per tablet 1 tablet (CANCELED) 1 tablet, Oral, 3 TIMES DAILY, First dose (after last modification) on Mon06/24/22 at 0515, Until Discontinued, Please send the first dose JENNA. It's currently 0500. Thank you!, STAT - Unit 0510 (Given - Provider: Heide Estevez RN)0956 (MAR Hold - Provider: Mar Autohold - Reason: Unreviewed Transfer Orders)1300 (Automatically Held - Provider: Stella Autohold)1418 (JAN Unhold - Provider: Ximena Crow RN)1955 (Given - Provider: Heide Estevez RN) 0230 (Given - Provider: Heide Estevez RN - Comment: provider approved, Suze Cid) ceFAZolin (ANCEF) 2000 mg in sterile water 20 mL IV syringe (COMPLETED) 2,000 mg, IntraVENous, MANAGER PURCHASING TO O.R., 1 dose, On Mon06/24/22 at 0315, Antimicrobial Indications: Surgical Prophylaxis, Do not administer on the floor. Please transport to OR with pt on day of surgery. Thank you Administer over 5 mins. 0956 (JAN Hold - Provider: Stella Autohold - Reason: Unreviewed Transfer Orders)1142 (Given - Provider: Lora Schneider, RN - Comment: given after culture per sx)1142 ([facility] Unhold - Provider: Lora Schneider RN) enoxaparin Sodium (LOVENOX) injection 30 mg 30 mg, SubCUTAneous, 2 TIMES DAILY, First dose on Mon06/25/22 at 0900, Until Discontinued, Indication of Use: Prophylaxis-DVT/PE 0837 (Given - Provider: Ximena Crow RN)2020 (Given - Provider: Aleah Rose, WILLY) 811 (Given - Provider: Ximena Crow RN)2099 (Due) fentaNYL (SUBLIMAZE) injection 100 mcg (COMPLETED) 100 mcg, IntraVENous, ONCE, 1 dose, On Mon06/24/22 at 0315, If oral and IV narcotics ordered, use oral first and only use IV if oral is ineffective or cannot take oral. Do Not give oral and IV within 1 hour of each other unless specifically ordered. 0301 (Given - Provider: Heide Estevez RN) folic acid (FOLVITE) tablet 1 mg 1 mg, Oral, DAILY, First dose on Mon06/24/22 at 0900, Until Discontinued 0758 (Not Given - Provider: Ximena Crow RN - Reason: Pt NPO)0956 ([facility] Hold - Provider: Stella Autohold - Reason: Unreviewed Transfer Orders)1418 ([facility] Unhold - Provider: Ximena Crow RN) 0838 (Given - Provider: Ximena Crow RN) 08 (Given - Provider: Ximena Crow RN) lisinopril (PRINIVIL;ZESTRIL) tablet 10 mg 10 mg, Oral, Nightly, First dose on Mon06/24/22 at 2100, Until Discontinued 2128 (Given - Provider: Heide Estevez RN) 2020 (Given - Provider: Aleah Rose, WILLY) 2099 (Due) rOPINIRole (REQUIP) tablet 1 mg 1 mg, Oral, 3 TIMES DAILY, First dose on Mon06/25/22 at 0915, Until Discontinued 939 (Given - Provider: Ximena M Tristin, RN)1405 (Given - Provider: Ximena Crow RN)2021 (Given - Provider: Aleah Rose RN) 0812 (Given - Provider: Ximena Crow RN)1400 (Due)2100 (Due) sodium chloride flush 0.9 % injection 5-40 mL 5-40 mL, IntraVENous, EVERY 12 HOURS SCHEDULED (2 times per day), First dose on Mon06/24/22 at 0900, Until Discontinued, For Line Patency: Peripheral IV = 5 mL; Midline or Central Line = 10 mL/lumen. If following IV push medication, administer flush at same rate as the IV push. Flush volume is determined by type of infusion therapy being given. For non-viscous solutions use: Peripheral IV = 5 mL Midline or Central Line = 10 mL/lumen For viscous solutions (i.e. blood components, parenteral nutrition, contrast media, or after obtaining blood sample) use: Peripheral IV = 10 mL Midline or Central Line = 20 mL/lumen 0758 (Not Given - Provider: Ximena Crow RN - Reason: Other - Comment: duplicate order)0956 (MAR Hold - Provider: Mar Autohold - Reason: Unreviewed Transfer Orders)1418 (MAR Unhold - Provider: Ximena Crow RN)2130 (Not Given - Provider: Heide Estevez RN - Reason: Other - Comment: duplicate order) 0821 (Not Given - Provider: Ximena Crow RN - Reason: IV Fluid Infusing)2308 (Not Given - Provider: Aleah Rose RN - Reason: IV Fluid Infusing) 0810 (Not Given - Provider: Ximena Crow RN - Reason: Other)2100 (Due) sodium chloride flush 0.9 % injection 5-40 mL 5-40 mL, IntraVENous, EVERY 12 HOURS SCHEDULED (2 times per day), First dose on Mon06/24/22 at 0900, Until Discontinued, For Line Patency: Peripheral IV = 5 mL; Midline or Central Line = 10 mL/lumen. If following IV push medication, administer flush at same rate as the IV push. Flush volume is determined by type of infusion therapy being given. For non-viscous solutions use: Peripheral IV = 5 mL Midline or Central Line = 10 mL/lumen For viscous solutions (i.e. blood components, parenteral nutrition, contrast media, or after obtaining blood sample) use: Peripheral IV = 10 mL Midline or Central Line = 20 mL/lumen 0918 (Not Given - Provider: Ximena Crow RN - Reason: Other - Comment: already given)0956 (JAN Hold - Provider: [facility] Autohold - Reason: Unreviewed Transfer Orders)1418 (JAN Unhold - Provider: Ximena Crow RN)2130 (Given - Provider: Heide Estevez RN) 0819 (Not Given - Provider: Ximena Crow RN - Reason: IV Fluid Infusing)202 (Given - Provider: Aleah Rose, WILLY) 0812 (Given - Provider: Ximena Crow RN)2100 (Due) thiamine tablet 100 mg 100 mg, Oral, DAILY, First dose on Mon06/24/22 at 0900, Until Discontinued 0757 (Not Given - Provider: Ximena Crow RN - Reason: Pt NPO)0956 (JAN Hold - Provider: [facility] Autohold - Reason: Unreviewed Transfer Orders)1418 (JAN Unhold - Provider: Ximena Crow RN) 0838 (Given - Provider: Ximena Crow RN) 0812 (Given - Provider: Ximena Crow RN) vancomycin (VANCOCIN) 1000 mg in sodium chloride 0.9% 250 mL IVPB (CANCELED) 1,000 mg (12.7 mg/kg), IntraVENous, at 250 mL/hr, Administer over 60 Minutes, EVERY 12 HOURS, First dose on Mon06/24/22 at 1445 1500 (New Bag - Provider: Ximena Crow RN)1645 (Stopped - Provider: Ximena Crow RN) 0240 (New Bag - Provider: Heide Estevez RN)0340 (Stopped - Provider: Heide Estevez RN)1406 (New Bag - Provider: Ximena Crow RN)1557 (Stopped - Provider: Ximena Crow RN) 0201 (New Bag - Provider: Aleah Rose RN)0341 (Stopped - Provider: Aleah Rose RN) vancomycin (VANCOCIN) 1250 mg in sodium chloride 0.9% 250 mL IVPB 1,250 mg (15.9 mg/kg), IntraVENous, at 166.7 mL/hr, Administer over 90 Minutes, EVERY 12 HOURS, First dose (after last modification) on Mon06/26/22 at 1445 1445 (Due) vancomycin (VANCOCIN) intermittent dosing (placeholder) Continuous Medication Order 06/24/2022 06/25/2022 06/26/2022 0.9 % sodium chloride infusion (CANCELED) IntraVENous, at 100 mL/hr, CONTINUOUS, Starting on Mon06/24/22 at 1030, PACU only 1012 (New Bag - Provider: Viola Philip RN)1042 (Paused - Provider: Lora Schneider, RN - Comment: Switch to gravity)1043 (Restarted - Provider: Lora Schneider, RN)1239 (New Bag - Provider: Lora Schneider, RN) PRN Medication Order 06/24/2022 06/25/2022 06/26/2022 0.9 % sodium chloride infusion IntraVENous, at 5-250 mL/hr, PRN, if patient receiving piggyback infusions and maintenance fluids are not ordered OR KVO fluids to protect IV site / prevent frequent line interruptions/ long duration, Starting on Mon06/24/22 at 0235, For piggyback infusion, administer at same rate as piggyback for a total of 25 mL. Enter 25 mL into dose field and piggyback rate into rate field of order. If piggyback is infusing at a rate less than 100 mL/hr, enter 25 mL into dose field and 100 mL/hr into rate field of order. For KVO fluids, enter rate of 20 mL/hr or less into rate field of order. 0956 (JAN Hold - Provider: Stella Autohold - Reason: Unreviewed Transfer Orders)1418 (JAN Unhold - Provider: Ximena Crow RN) 0.9 % sodium chloride infusion IntraVENous, at 5-250 mL/hr, PRN, if patient receiving piggyback infusions and maintenance fluids are not ordered OR KVO fluids to protect IV site / prevent frequent line interruptions/ long duration, Starting on Mon06/24/22 at 0705, For piggyback infusion, administer at same rate as piggyback for a total of 25 mL. Enter 25 mL into dose field and piggyback rate into rate field of order. If piggyback is infusing at a rate less than 100 mL/hr, enter 25 mL into dose field and 100 mL/hr into rate field of order. For KVO fluids, enter rate of 20 mL/hr or less into rate field of order. 0956 (MAR Hold - Provider: [facility] Autohold - Reason: Unreviewed Transfer Orders)1418 ([facility] Unhold - Provider: Ximena Crow, WILLY) hydrALAZINE (APRESOLINE) injection 10 mg 10 mg, IntraVENous, EVERY 6 HOURS PRN, Starting on Mon06/26/22 at 0709, Until Discontinued, High Blood Pressure, Give for SBP > 160. Hold for HR > 90. HYDROmorphone (DILAUDID) injection 0.5 mg (CANCELED) HYDROmorphone (DILAUDID) 1.5mg IV is equivalent to morphine 10mg IV, 0.5 mg, IntraVENous, EVERY 5 MIN PRN, 4 doses, Starting on Mon06/24/22 at 1318, Until Mon06/24/22 at 1421, Pain Severe (7-10), Phase I - Initial therapy for severe pain., PACU only 1340 (Given - Provider: Coleen Teixeira RN)1345 (Given - Provider: Coleen Teixeira RN) LORazepam (ATIVAN) injection 1 mg(Linked Group 1) 1 mg, IntraVENous, EVERY 1 HOUR PRN (WITHDRAWAL), Starting on Mon06/24/22 at 0705, Until Discontinued, Withdrawal, For alcohol withdrawal., For CIWA score 8 to 10. If both oral and intravenous CIWA medications ordered, use intravenous if unable to tolerate oral equivalent. Reassess CIWA one hour after each dose of medication and as needed. 0956 (JAN Hold - Provider: Stella Autohold - Reason: Unreviewed Transfer Orders)1418 (JAN Unhold - Provider: Ximena Crow RN) LORazepam (ATIVAN) injection 2 mg(Linked Group 1) 2 mg, IntraVENous, EVERY 1 HOUR PRN (WITHDRAWAL), Starting on Mon06/24/22 at 0705, Until Discontinued, Withdrawal, For alcohol withdrawal., For CIWA score 11 to 15. If both oral and intravenous CIWA medications ordered, use intravenous if unable to tolerate oral equivalent. Reassess CIWA one hour after each dose of medication and as needed. 0956 ([facility] Hold - Provider: [facility] Autohold - Reason: Unreviewed Transfer Orders)1418 ([facility] Unhold - Provider: Ximena Crow RN) LORazepam (ATIVAN) injection 3 mg(Linked Group 1) 3 mg, IntraVENous, EVERY 1 HOUR PRN (WITHDRAWAL), Starting on Mon06/24/22 at 0705, Until Discontinued, Withdrawal, For alcohol withdrawal., For CIWA score 16 to 20. If both oral and intravenous CIWA medications ordered, use intravenous if unable to tolerate oral equivalent. Reassess CIWA one hour after each dose of medication and as needed. 0956 ([facility] Hold - Provider: [facility] Autohold - Reason: Unreviewed Transfer Orders)1418 ([facility] Unhold - Provider: Ximena Crow RN) LORazepam (ATIVAN) injection 4 mg(Linked Group 1) 4 mg, IntraVENous, EVERY 1 HOUR PRN (WITHDRAWAL), Starting on Mon06/24/22 at 0705, Until Discontinued, Withdrawal, For alcohol withdrawal., For CIWA score greater than 20. If both oral and intravenous CIWA medications ordered, use intravenous if unable to tolerate oral equivalent. Reassess CIWA one hour after each dose of medication and as needed. 0956 ([facility] Hold - Provider: [facility] Autohold - Reason: Unreviewed Transfer Orders)1418 ([facility] Unhold - Provider: Ximena Crow RN) LORazepam (ATIVAN) tablet 1 mg(Linked Group 1) 1 mg, Oral, EVERY 1 HOUR PRN (WITHDRAWAL), Starting on Mon06/24/22 at 0705, Until Discontinued, For alcohol withdrawal., For CIWA score 8 to 10. Reassess CIWA one hour after each dose of medication and as needed. 0956 ([facility] Hold - Provider: [facility] Autohold - Reason: Unreviewed Transfer Orders)1418 ([facility] Unhold - Provider: Ximena Crow RN) LORazepam (ATIVAN) tablet 2 mg(Linked Group 1) 2 mg, Oral, EVERY 1 HOUR PRN (WITHDRAWAL), Starting on Mon06/24/22 at 0705, Until Discontinued, For alcohol withdrawal., For CIWA score 11 to 15. Reassess CIWA one hour after each dose of medication and as needed. 0956 ([facility] Hold - Provider: [facility] Autohold - Reason: Unreviewed Transfer Orders)1418 ([facility] Unhold - Provider: Ximena Crow RN) LORazepam (ATIVAN) tablet 3 mg(Linked Group 1) 3 mg, Oral, EVERY 1 HOUR PRN (WITHDRAWAL), Starting on Mon06/24/22 at 0705, Until Discontinued, For alcohol withdrawal., For CIWA score 16 to 20. Reassess CIWA one hour after each dose of medication and as needed. 0956 ([facility] Hold - Provider: [facility] Autohold - Reason: Unreviewed Transfer Orders)1418 ([facility] Unhold - Provider: Ximena Crow RN) LORazepam (ATIVAN) tablet 4 mg(Linked Group 1) 4 mg, Oral, EVERY 1 HOUR PRN (WITHDRAWAL), Starting on Mon06/24/22 at 0705, Until Discontinued, For alcohol withdrawal., For CIWA score greater than 20. Reassess CIWA one hour after each dose of medication and as needed. 0956 ([facility] Hold - Provider: [facility] Autohold - Reason: Unreviewed Transfer Orders)1418 ([facility] Unhold - Provider: Ximena Crow RN) melatonin tablet 5 mg 5 mg, Oral, NIGHTLY PRN, Starting on Mon06/25/22 at 0340, Until Discontinued, Sleep 0359 (Given - Provider: Heide Estevez RN)2321 (Given - Provider: Aleah Rose RN) methocarbamol (ROBAXIN) tablet 750 mg 750 mg, Oral, 4 TIMES DAILY PRN, Starting on Mon06/24/22 at 0234, Until Discontinued, Muscle spasms 0956 ([facility] Hold - Provider: [facility] Autoh[employer] - Reason: Unreviewed Transfer Orders)1418 ([facility] Unhold - Provider: Ximena Crow RN) 0845 (Given - Provider: Ximena Crow, WILLY) morphine (PF) injection 2 mg(Linked Group 2) 2 mg, IntraVENous, EVERY 2 HOURS PRN, Starting on Mon06/24/22 at 0245, Until Discontinued, Pain Moderate (4-6), If oral and IV narcotics ordered, use oral first and only use IV if oral is ineffective or cannot take oral. Do Not give oral and IV within 1 hour of each other unless specifically ordered. 0956 ([facility] Hold - Provider: [facility] Aut[employer] - Reason: Unreviewed Transfer Orders)1418 ([facility] Unhold - Provider: Ximena Crow RN) morphine injection 4 mg(Linked Group 2) 4 mg, IntraVENous, EVERY 2 HOURS PRN, Starting on Mon06/24/22 at 0245, Until Discontinued, Pain Severe (7-10), If oral and IV narcotics ordered, use oral first and only use IV if oral is ineffective or cannot take oral. Do Not give oral and IV within 1 hour of each other unless specifically ordered. 0956 ([facility] Hold - Provider: [facility] [employer] - Reason: Unreviewed Transfer Orders)1418 ([facility] Unhold - Provider: Ximena Crow RN) naproxen (NAPROSYN) tablet 500 mg 500 mg, Oral, DAILY PRN, Starting on Mon06/24/22 at 0235, Until Discontinued, Pain Moderate (4-6) 0956 ([facility] Hold - Provider: [facility] Aut[employer] - Reason: Unreviewed Transfer Orders)1418 ([facility] Unhold - Provider: Ximena Crow RN) 0845 (Given - Provider: Ximena Crow RN) ondansetron (ZOFRAN) injection 4 mg(Linked Group 3) 4 mg, IntraVENous, EVERY 6 HOURS PRN, Starting on Mon06/24/22 at 0235, Until Discontinued, Nausea, Vomiting, Administer if oral route cannot be used. 0956 ([facility] [facility] Provider: [facility] [employer] - Reason: Unreviewed Transfer Orders)1418 ([facility] Unhold - Provider: Ximena Crow RN) ondansetron (ZOFRAN-ODT) disintegrating tablet 4 mg(Linked Group 3) 4 mg, Oral, EVERY 8 HOURS PRN, Starting on Mon06/24/22 at 0235, Until Discontinued, Nausea, Vomiting 0956 ([facility] Hold - Provider: [facility] [employer] - Reason: Unreviewed Transfer Orders)1418 ([facility] Unhold - Provider: Ximena Crow RN) oxyCODONE (ROXICODONE) immediate release tablet 10 mg(Linked Group 4) 10 mg, Oral, EVERY 4 HOURS PRN, Starting on Mon06/24/22 at 0245, Until Discontinued, Pain Severe (7-10) 0805 (Given - Provider: Ximena Crow RN)0956 ([facility] Hold - Provider: St[facility] [employer] - Reason: Unreviewed Transfer Orders)1418 ([facility] Unhold - Provider: Ximena Crow RN)1500 (Given - Provider: Ximena Crow RN)213 (Given - Provider: Heide Estevez RN) 0823 (Given - Provider: Heide Estevez RN)1159 (Given - Provider: Ximena Crow RN)161 (Given - Provider: Ximena Crow RN)2020 (Given - Provider: Aleah Rose RN) 0513 (Given - Provider: Aleah Rose, WILLY)1150 (Given - Provider: Ximena Crow RN) oxyCODONE (ROXICODONE) immediate release tablet 5 mg(Linked Group 4) 5 mg, Oral, EVERY 4 HOURS PRN, Starting on Mon06/24/22 at 0245, Until Discontinued, Pain Moderate (4-6) 0805 (See Alternative - Provider: Ximena Crow RN)0956 ([facility] Hold - Provider: Stella [employer] - Reason: Unreviewed Transfer Orders)1418 ([facility] Unhold - Provider: Ximena Crow RN)1500 (See Alternative - Provider: Ximena Crow RN)213 (See Alternative - Provider: Heide Estevez RN) 0823 (See Alternative - Provider: Heide Estevez RN)1159 (See Alternative - Provider: Ximena Crow RN)1615 (See Alternative - Provider: Ximena Crow RN)2020 (See Alternative - Provider: Aleah Rose, WILLY) 0513 (See Alternative - Provider: Aleah Rose, WILLY)1150 (See Alternative - Provider: Ximena Crow RN) polyethylene glycol (GLYCOLAX) packet 17 g 17 g, Oral, DAILY PRN, Starting on Mon06/24/22 at 0235, Until Discontinued, Constipation, First line therapy for constipation 0956 ([facility] Hold - Provider: [facility] [employer] - Reason: Unreviewed Transfer Orders)1418 ([facility] Unhold - Provider: Ximena Crow RN) 1619 (Given - Provider: Ximena Crow RN) 0813 (Given - Provider: Ximena Crow RN) sodium chloride 0.9 % irrigation (CANCELED) CONTINUOUS PRN, Starting on Mon06/24/22 at 1050, Intra-op 1035 (New Bag - Provider: Pardeep Infante, DO - Comment: Poured onto the backtable)1050 (New Bag - Provider: Pardeep Infante, DO - Comment: use for irrigation.)1205 (New Bag - Provider: Pardeep Infante, DO - Comment: use for irrigation) sodium chloride flush 0.9 % injection 5-40 mL 5-40 mL, IntraVENous, PRN, Starting on Mon06/24/22 at 0235, Until Discontinued, Line Care, After every IV line use, For Line Patency: Peripheral IV = 5 mL; Midline or Central Line = 10 mL/lumen. If following IV push medication, administer flush at same rate as the IV push. Flush volume is determined by type of infusion therapy being given. For non-viscous solutions use: Peripheral IV = 5 mL Midline or Central Line = 10 mL/lumen For viscous solutions (i.e. blood components, parenteral nutrition, contrast media, or after obtaining blood sample) use: Peripheral IV = 10 mL Midline or Central Line = 20 mL/lumen 0956 ([facility] Hold - Provider: Stella [employer]oh[facility] - Reason: Unreviewed Transfer Orders)1418 ([facility] Unhold - Provider: Ximena Crow RN) sodium chloride flush 0.9 % injection 5-40 mL 5-40 mL, IntraVENous, PRN, Starting on Mon06/24/22 at 0705, Until Discontinued, Line Care, After every IV line use, For Line Patency: Peripheral IV = 5 mL; Midline or Central Line = 10 mL/lumen. If following IV push medication, administer flush at same rate as the IV push. Flush volume is determined by type of infusion therapy being given. For non-viscous solutions use: Peripheral IV = 5 mL Midline or Central Line = 10 mL/lumen For viscous solutions (i.e. blood components, parenteral nutrition, contrast media, or after obtaining blood sample) use: Peripheral IV = 10 mL Midline or Central Line = 20 mL/lumen 0956 ([facility] Hold - Provider: Stella [employer] - Reason: Unreviewed Transfer Orders)1418 ([facility] Unhold - Provider: Ximena Crow RN) traZODone (DESYREL) tablet 100 mg 100 mg, Oral, NIGHTLY PRN, Starting on Mon06/24/22 at 2100, Until Discontinued, Sleep 0956 ([facility] Hold - Provider: Stella [employer] - Reason: Unreviewed Transfer Orders)1418 ([facility] Unhold - Provider: Ximena Crow RN) 2321 (Given - Provider: Aleah Rose RN) Linked Groups Order Group 1: LORazepam (ATIVAN) tablet 1 mgJump to med 1 mg, Oral, EVERY 1 HOUR PRN (WITHDRAWAL), Starting on Mon06/24/22 at 0705, Until Discontinued, For alcohol withdrawal.
For CIWA score 8 to 10. Reassess CIWA one hour after each dose of medication and as needed.
Or LORazepam (ATIVAN) injection 1 mgJump to med 1 mg, IntraVENous, EVERY 1 HOUR PRN (WITHDRAWAL), Starting on Mon06/24/22 at 0705, Until Discontinued, Withdrawal, For alcohol withdrawal.
For CIWA score 8 to 10. If both oral and intravenous CIWA medications ordered, use intravenous if unable to tolerate oral equivalent. Reassess CIWA one hour after each dose of medication and as needed.
Or LORazepam (ATIVAN) tablet 2 mgJump to med 2 mg, Oral, EVERY 1 HOUR PRN (WITHDRAWAL), Starting on Mon06/24/22 at 0705, Until Discontinued, For alcohol withdrawal.
For CIWA score 11 to 15. Reassess CIWA one hour after each dose of medication and as needed.
Or LORazepam (ATIVAN) injection 2 mgJump to med 2 mg, IntraVENous, EVERY 1 HOUR PRN (WITHDRAWAL), Starting on Mon06/24/22 at 0705, Until Discontinued, Withdrawal, For alcohol withdrawal.
For CIWA score 11 to 15. If both oral and intravenous CIWA medications ordered, use intravenous if unable to tolerate oral equivalent. Reassess CIWA one hour after each dose of medication and as needed.
Or LORazepam (ATIVAN) tablet 3 mgJump to med 3 mg, Oral, EVERY 1 HOUR PRN (WITHDRAWAL), Starting on Mon06/24/22 at 0705, Until Discontinued, For alcohol withdrawal.
For CIWA score 16 to 20. Reassess CIWA one hour after each dose of medication and as needed.
Or LORazepam (ATIVAN) injection 3 mgJump to med 3 mg, IntraVENous, EVERY 1 HOUR PRN (WITHDRAWAL), Starting on Mon06/24/22 at 0705, Until Discontinued, Withdrawal, For alcohol withdrawal.
For CIWA score 16 to 20. If both oral and intravenous CIWA medications ordered, use intravenous if unable to tolerate oral equivalent. Reassess CIWA one hour after each dose of medication and as needed.
Or LORazepam (ATIVAN) tablet 4 mgJump to med 4 mg, Oral, EVERY 1 HOUR PRN (WITHDRAWAL), Starting on Mon06/24/22 at 0705, Until Discontinued, For alcohol withdrawal.
For CIWA score greater than 20. Reassess CIWA one hour after each dose of medication and as needed.
Or LORazepam (ATIVAN) injection 4 mgJump to med 4 mg, IntraVENous, EVERY 1 HOUR PRN (WITHDRAWAL), Starting on Mon06/24/22 at 0705, Until Discontinued, Withdrawal, For alcohol withdrawal.
For CIWA score greater than 20. If both oral and intravenous CIWA medications ordered, use intravenous if unable to tolerate oral equivalent. Reassess CIWA one hour after each dose of medication and as needed.
Group 2: morphine (PF) injection 2 mgJump to med 2 mg, IntraVENous, EVERY 2 HOURS PRN, Starting on Mon06/24/22 at 0245, Until Discontinued, Pain Moderate (4-6)
If oral and IV narcotics ordered, use oral first and only use IV if oral is ineffective or cannot take oral. Do Not give oral and IV within 1 hour of each other unless specifically ordered.
Or morphine injection 4 mgJump to med 4 mg, IntraVENous, EVERY 2 HOURS PRN, Starting on Mon06/24/22 at 0245, Until Discontinued, Pain Severe (7-10)
If oral and IV narcotics ordered, use oral first and only use IV if oral is ineffective or cannot take oral. Do Not give oral and IV within 1 hour of each other unless specifically ordered.
Group 3: ondansetron (ZOFRAN-ODT) disintegrating tablet 4 mgJump to med 4 mg, Oral, EVERY 8 HOURS PRN, Starting on Mon06/24/22 at 0235, Until Discontinued, Nausea, Vomiting Or ondansetron (ZOFRAN) injection 4 mgJump to med 4 mg, IntraVENous, EVERY 6 HOURS PRN, Starting on Mon06/24/22 at 0235, Until Discontinued, Nausea, Vomiting
Administer if oral route cannot be used.
Group 4: oxyCODONE (ROXICODONE) immediate release tablet 5 mgJump to med 5 mg, Oral, EVERY 4 HOURS PRN, Starting on Mon06/24/22 at 0245, Until Discontinued, Pain Moderate (4-6) Or oxyCODONE (ROXICODONE) immediate release tablet 10 mgJump to med 10 mg, Oral, EVERY 4 HOURS PRN, Starting on Mon06/24/22 at 0245, Until Discontinued, Pain Severe (7-10) Scheduled Medication Order 07/02/2022 07/03/2022 07/04/2022 fentaNYL (SUBLIMAZE) injection 50 mcg (COMPLETED) 50 mcg, IntraVENous, ONCE, 1 dose, On Mon07/04/22 at 1300, If oral and IV narcotics ordered, use oral first and only use IV if oral is ineffective or cannot take oral. Do Not give oral and IV within 1 hour of each other unless specifically ordered. 1305 (Given - Provid er: Malathi Turcios RN) fentaNYL (SUBLIMAZE) injection 50 mcg (COMPLETED) 50 mcg, IntraVENous, ONCE, 1 dose, On Mon07/04/22 at 1515, If oral and IV narcotics ordered, use oral first and only use IV if oral is ineffective or cannot take oral. Do Not give oral and IV within 1 hour of each other unless specifically ordered. 1516 (Given - Provid er: Anayeli Bustos RN) oxyCODONE-acetaminophen (PERCOCET) 5-325 MG per tablet 1 tablet (COMPLETED) Mg/kg dosing is based on the oxycodone component., 1 tablet, Oral, ONCE, 1 dose, On Mon07/04/22 at 1730, Maximum dose of acetaminophen is 4000 mg from all sources in 24 hours. 1736 (Given - Provid er: Anayeli Bustos RN) rOPINIRole (REQUIP) tablet 1 mg 1 mg, Oral, ONCE, 1 dose, On Mon07/04/22 at 1715 1715 (Due) PRN Medication Order 07/02/2022 07/03/2022 07/04/2022 iopamidol (ISOVUE-370) 76 % injection 75 mL (COMPLETED) 75 mL, IntraVENous, IMG ONCE PRN, 1 dose, Starting on Mon07/04/22 at 1402, Until Mon07/04/22 at 1404, Other 1404 (Given - Provid er: Sri Price) Scheduled Medication Order 11/23/2022 11/24/2022 11/25/2022 acetaminophen (TYLENOL) tablet 650 mg (COMPLETED) 650 mg, Oral, ONCE, 1 dose, On Mon11/25/22 at 1045, Maximum dose of acetaminophen is 4000 mg from all sources in 24 hours., Pre-op (day of surgery) 1101 (Given - Provid er: Frieda Weller RN) ceFAZolin (ANCEF) 2000 mg in dextrose 5 % 100 mL IVPB (COMPLETED) 2,000 mg, IntraVENous, ONCE, 1 dose, On Mon11/25/22 at 1045, Antimicrobial Indications: Surgical Prophylaxis, Pre-op (day of surgery) 1203 (New Bag - Prov ider: Gabriel Marie RN)1257 (Stopped - Provider: Gabriel Marie RN) cefTRIAXone (ROCEPHIN) 1,000 mg in dextrose 5 % 50 mL IVPB mini-bag 1,000 mg, IntraVENous, EVERY 24 HOURS, 7 doses, First dose on Mon11/26/22 at 0000, Last dose on Mon12/02/22 at 0000, Antimicrobial Indications: Bone and Joint Infection, Saline flush PRN sodium chloride flush 0.9 % injection 5-40 mL 5-40 mL, IntraVENous, EVERY 12 HOURS SCHEDULED (2 times per day), First dose on Mon11/25/22 at 2100, Until Discontinued, For Line Patency: Peripheral IV = 5 mL; Midline or Central Line = 10 mL/lumen. If following IV push medication, administer flush at same rate as the IV push. Flush volume is determined by type of infusion therapy being given. For non-viscous solutions use: Peripheral IV = 5 mL Midline or Central Line = 10 mL/lumen For viscous solutions (i.e. blood components, parenteral nutrition, contrast media, or after obtaining blood sample) use: Peripheral IV = 10 mL Midline or Central Line = 20 mL/lumen, PACU only 2100 (Due) Continuous Medication Order 11/23/2022 11/24/2022 11/25/2022 lactated ringers infusion IntraVENous, at 100 mL/hr, CONTINUOUS, Starting on Mon11/25/22 at 1045, Pre-op (day of surgery) 1058 (New Bag - Prov ider: Frieda Weller RN)1204 (NoRateChange - Provider: Rosemarie Almaraz APRN - [employer])1236 (New Bag - Provider: Rosemarie Almaraz APRN - [employer])1339 (Rate/Dose Change - Provider: GRUPO Zeng [employer])1444 (Stopped - Provider: Ayleen Acosta RN) PRN Medication Order 11/23/2022 11/24/2022 11/25/2022 0.9 % sodium chloride infusion IntraVENous, at 5-250 mL/hr, PRN, if patient receiving piggyback infusions and maintenance fluids are not ordered OR KVO fluids to protect IV site / prevent frequent line interruptions/ long duration, Starting on Mon11/25/22 at 1334, For piggyback infusion, administer at same rate as piggyback for a total of 25 mL. Enter 25 mL into dose field and piggyback rate into rate field of order. If piggyback is infusing at a rate less than 100 mL/hr, enter 25 mL into dose field and 100 mL/hr into rate field of order. For KVO fluids, enter rate of 20 mL/hr or less into rate field of order., PACU only fentaNYL (SUBLIMAZE) injection 25 mcg 25 mcg, IntraVENous, EVERY 5 MIN PRN, 2 doses, Starting on Mon11/25/22 at 1334, Until Discontinued, Pain Moderate (4-6), For Phase I. If Phase II oral narcotics have been administered in the last 60 minutes, do not administer IV narcotics unless specifically approved by provider., PACU only fentaNYL (SUBLIMAZE) injection 50 mcg 50 mcg, IntraVENous, EVERY 5 MIN PRN, 2 doses, Starting on Mon11/25/22 at 1334, Until Discontinued, Pain Severe (7-10), For Phase I. If Phase II oral narcotics have been administered in the last 60 minutes, do not administer IV narcotics unless specifically approved by provider., PACU only HYDROcodone-acetaminophen (NORCO) 5-325 MG per tablet 1 tablet(Linked Group 1) 1 tablet, Oral, EVERY 4 HOURS PRN, Starting on Mon11/25/22 at 1334, Until Discontinued, Pain Moderate (4-6), Maximum dose of acetaminophen is 4000 mg from all sources in 24 hours., PACU only HYDROcodone-acetaminophen (NORCO) 5-325 MG per tablet 2 tablet(Linked Group 1) 2 tablet, Oral, EVERY 4 HOURS PRN, Starting on Mon11/25/22 at 1334, Until Discontinued, Pain Severe (7-10), Maximum dose of acetaminophen is 4000 mg from all sources in 24 hours., PACU only metoclopramide (REGLAN) injection 10 mg 10 mg, IntraVENous, ONCE PRN, 1 dose, Starting on Mon11/25/22 at 1334, Until Mon11/26/22 at 1334, Nausea, Initial antiemetic therapy., PACU only sodium chloride flush 0.9 % injection 5-40 mL 5-40 mL, IntraVENous, PRN, Starting on Mon11/25/22 at 1334, Until Discontinued, Line Care, After every IV line use, For Line Patency: Peripheral IV = 5 mL; Midline or Central Line = 10 mL/lumen. If following IV push medication, administer flush at same rate as the IV push. Flush volume is determined by type of infusion therapy being given. For non-viscous solutions use: Peripheral IV = 5 mL Midline or Central Line = 10 mL/lumen For viscous solutions (i.e. blood components, parenteral nutrition, contrast media, or after obtaining blood sample) use: Peripheral IV = 10 mL Midline or Central Line = 20 mL/lumen, PACU only Linked Groups Order Group 1: HYDROcodone-acetaminophen (NORCO) 5-325 MG per tablet 1 tabletJump to med 1 tablet, Oral, EVERY 4 HOURS PRN, Starting on Mon11/25/22 at 1334, Until Discontinued, Pain Moderate (4-6)
Maximum dose of acetaminophen is 4000 mg from all sources in 24 hours.
PACU only Or HYDROcodone-acetaminophen (NORCO) 5-325 MG per tablet 2 tabletJump to med 2 tablet, Oral, EVERY 4 HOURS PRN, Starting on Mon11/25/22 at 1334, Until Discontinued, Pain Severe (7-10)
Maximum dose of acetaminophen is 4000 mg from all sources in 24 hours.
PACU only Scheduled Medication Order 12/31/2022 01/01/2023 01/02/2023 Acetaminophen (TYLENOL) tablet 650 mg 650 mg, Oral, EVERY 6 HOURS, First dose on Mon12/30/22 at 1445, Until Discontinued, Maximum dose of acetaminophen is 4000 mg from all sources in 24 hours. 0514 (Given - Provider: Mary Butts RN)1303 (Given - Provider: Thais Servin, Student Nurse)1704 (Given - Provider: Jamie Arciniega RN) 0002 (Given - Provider: Dangelo Odom RN)0617 (Given - Provider: Dangelo Odom, WILLY)1238 (Given - Provider: Dai Montana, WILLY)1747 (Given - Provider: Dai Montana RN) 0008 (Given - Provider: Dangelo Odom, WILLY)0634 (Given - Provider: Dangelo Odom, WILLY)1118 (Given - Provider: Fatuma Serna, WILLY)1800 (Canceled Entry - Provider: System Discharge - Comment: Automatically canceled at discontinue of medication order) Ascorbic acid tablet 250 mg 250 mg, Oral, 2 TIMES DAILY, First dose on Mon12/30/22 at 1700, Until Discontinued 0843 (Given - Provider: Thais Servin, Student Nurse)1704 (Given - Provider: Jamie Arciniega RN) 1005 (Given - Provider: Dai Montana RN)1746 (Given - Provider: Dai Montana, WILLY) 0829 (Given - Provider: Fatuma Serna, WILLY)1700 (Canceled Entry - Provider: System Discharge - Comment: Automatically canceled at discontinue of medication order) baclofen (LIORESAL) tablet 20 mg 20 mg, Oral, DAILY EVERY MORNING, First dose on 12/31/22 at 0900, Until Discontinued 0843 (Given - Provider: Thais Servin, Student Nurse) 1004 (Given - Provider: Dai Montana RN) 0829 (Given - Provider: Fatuma Serna RN) ceFAZolin (ANCEF) 2 g in dextrose 100 mL premix IVPB (COMPLETED) 2 g, Intravenous, Administer over 30 Minutes, ONCE, 1 dose, On 12/31/22 at 1430, Administer bolus over 30 minutes followed by continuous infusion 1443 ($$New Bag$$ - Provider: Teodoro Gastelum RN) ceFAZolin (ANCEF) 3 g in Sodium chloride 0.9%, with overfill 290 mL IV infusion 3 g, Intravenous, at 24.2 mL/hr, Administer over 12 Hours, EVERY 12 HOURS NON-STANDARD, First dose on 12/31/22 at 1500, Until Discontinued 1540 ($$New Bag$$ - Provider: Jamie Arciniega RN) 0015 (Paused - Provider: Dai Montana RN)0021 (Restarted - Provider: Dai Montana RN)0023 (Paused - Provider: Dai Montana RN)0026 (Restarted - Provider: Dai Montana RN)0350 (Rate/Dose Change - Provider: Dai Montana RN)0401 (Stopped - Provider: Dai Montana RN)0403 ($$New Bag$$ - Provider: Dangelo Odom RN)1603 (Rate/Dose Change - Provider: Dai Montana RN)1611 (Stopped - Provider: Dai Montana RN)1616 ($$New Bag$$ - Provider: Dai Montana RN)1859 (Rate/Dose Verify - Provider: Dai Montana RN) 0427 ($$New Bag$$ - Provider: Dangelo Odom RN)0648 (Rate/Dose Verify - Provider: Dangelo Odom RN)1500 (Canceled Entry - Provider: System Discharge - Comment: Automatically canceled at discontinue of medication order) cholecalciferol (VITAMIN D3) tablet 800 Units 800 Units, Oral, DAILY, First dose on Mon12/30/22 at 1445, Until Discontinued 0844 (Given - Provider: Jakob Hernandez) 1005 (Given - Provider: Dai Montana RN) 0829 (Given - Provider: Fatuma Serna RN) Docusate (COLACE) capsule 100 mg 100 mg, Oral, 2 TIMES DAILY, First dose on Mon12/30/22 at 1700, Until Discontinued 0844 (Given - Provider: Jakob Hernandez)1704 (Given - Provider: Jamie Arciniega RN) 1004 (Given - Provider: Dai Montana RN)1746 (Given - Provider: Dai Montana RN) 0829 (Given - Provider: Fatuma Serna RN)1700 (Canceled Entry - Provider: System Discharge - Comment: Automatically canceled at discontinue of medication order) Enoxaparin Sodium (LOVENOX) injection 40 mg 40 mg, Subcutaneous, DAILY, First dose on 12/31/22 at 0900, Until Discontinued, , Indications: DVT/PE prophylaxis 0844 (Given - Provider: Jakob Hernandez) 1007 (Given - Provider: Dai Montana RN) 0829 (Given - Provider: Fatuma Serna RN) Folic acid (FOLVITE) tablet 1 mg(Linked Group 1) 1 mg, Oral, DAILY, First dose on 12/31/22 at 0900, Until Discontinued 0844 (Given - Provider: Jakob Hernandez) 1004 (Given - Provider: Dai Montana RN) 0829 (Given - Provider: Fatuma Serna RN) Folic acid (FOLVITE) tablet 1 mg(Linked Group 1) 1 mg, Per NG tube, DAILY, First dose on 12/31/22 at 0900, Until Discontinued 0844 (See Alternative - Provider: Jakob Hernandez) 1004 (See Alternative - Provider: Dai Montana RN) 0829 (See Alternative - Provider: Fatuma Serna RN) Folic acid injection 1 mg(Linked Group 1) 1 mg, Intravenous, Administer over 3 Minutes, DAILY, First dose on 12/31/22 at 0900, Until Discontinued, If unable to tolerate PO/NG. 0844 (See Alternative - Provider: Jakob Hernandez) 1004 (See Alternative - Provider: Dai Montana RN) 0829 (See Alternative - Provider: Fatuma Serna RN) Gabapentin (NEURONTIN) capsule 100 mg 100 mg, Oral, 3 TIMES DAILY, First dose on Mon12/30/22 at 1445, Until Discontinued 0844 (Given - Provider: Jakob Hernandez Nurse)1304 (Given - Provider: Jakob Hernandez)2033 (Given - Provider: Dangelo Odom RN) 1005 (Given - Provider: Dai Montana RN)1350 (Given - Provider: Dai Montana RN)2049 (Given - Provider: Dangelo Odom RN) 0829 (Given - Provider: Fatuma Serna RN)1400 (Canceled Entry - Provider: System Discharge - Comment: Automatically canceled at discontinue of medication order) Lisinopril (PRINIVIL) tablet 2.5 mg 2.5 mg, Oral, DAILY EVERY MORNING, First dose on 12/31/22 at 0900, Until Discontinued 0857 (Given - Provider: Jakob Hernandez) 1003 (Given - Provider: Dai Montana RN) 0829 (Given - Provider: Fatuma Serna RN) Multi-Vitamins tablet 1 tablet(Linked Group 2) 1 tablet, Per NG tube, DAILY, First dose on 12/31/22 at 0900, Until Discontinued, Crush for NG tube administration. 0844 (See Alternative - Provider: Jakob Hernandez) 1003 (See Alternative - Provider: Dai Montana RN) 0829 (See Alternative - Provider: Fatuma Serna, WILLY) Multi-Vitamins tablet 1 tablet(Linked Group 2) 1 tablet, Oral, DAILY, First dose on 12/31/22 at 0900, Until Discontinued, Use PO route if patient tolerating PO. 0844 (Given - Provider: Jakob Hernandez) 1003 (Given - Provider: Dai Montana RN) 0829 (Given - Provider: Fatuma Serna RN) Naproxen (NAPROSYN) tablet 500 mg 500 mg, Oral, 2 TIMES DAILY, First dose on Mon12/30/22 at 1700, Until Discontinued, Give with food 0844 (Given - Provider: Thais Servin, Student Nurse)1656 (Not Given - Provider: Jamie Arciniega RN - Reason: Patient/family refused) 1006 (Given - Provider: Dai Montana RN)1746 (Given - Provider: Dai Montana, WILLY) 0829 (Given - Provider: Fatuma Serna, WILLY)1700 (Canceled Entry - Provider: System Discharge - Comment: Automatically canceled at discontinue of medication order) Perflutren Lipid Microsphere (DEFINITY) 1.5 mL in Normal saline flush 0.9% 8.5 mL (COMPLETED) 1-10 mL, Intravenous, ONCE, 1 dose, On Mon01/02/23 at 1100, Dilute 1.5 mL of Definity with 8.5 mL of 0.9% sodium chloride and draw up in a 10 mL syringe. Administration during procedure. Recorded MAR dose is cumulative amount given during procedure. 1026 (Given - Radiology - Provider: Geeta Vidal RN) rOPINIRole (REQUIP) tablet 2 mg 2 mg, Oral, 2 TIMES DAILY, First dose (after last modification) on Mon12/31/22 at 0900, Until Discontinued, Max 24 mg/day 0844 (Given - Provider: Jakob Hernandez Nurse)1704 (Given - Provider: Jamie Arciniega RN) 1005 (Given - Provider: Dai Montana RN)1746 (Given - Provider: Dai Montana RN) 0829 (Given - Provider: Fatuma Serna RN)1700 (Canceled Entry - Provider: System Discharge - Comment: Automatically canceled at discontinue of medication order) Thiamine (Vitamin B-1) injection 100 mg(Linked Group 3) 100 mg, Intravenous, EVERY 8 HOURS, 15 doses, First dose on Mon12/30/22 at 2200, Last dose on Mon01/04/23 at 1400, During acute withdrawal period. 0514 (See Alternative - Provider: Mary Butts RN)1304 (See Alternative - Provider: Thais Servin Student Nurse)2032 (See Alternative - Provider: Dangelo Odom RN) 0617 (See Alternative - Provider: Dangelo Odom RN)1350 (See Alternative - Provider: Dai Montana RN)2049 (See Alternative - Provider: Dangelo Odom RN) 0635 (See Alternative - Provider: Dangelo Odom RN)1400 (Canceled Entry - Provider: System Discharge - Comment: Automatically canceled at discontinue of medication order) Thiamine tablet 100 mg(Linked Group 3) 100 mg, Oral, EVERY 8 HOURS, 15 doses, First dose on Mon12/30/22 at 2200, Last dose on Mon01/04/23 at 1400, During acute withdrawal period. 0514 (Given - Provider: Mary Butts RN)1304 (Given - Provider: Thais Servin, Student Nurse)2031 (Given - Provider: Dangelo Odom RN) 0617 (Given - Provider: Dangelo Odom RN)1350 (Given - Provider: Dai Montana RN)2048 (Given - Provider: Dangelo Odom RN) 0635 (Given - Provider: Dangelo Odom RN)1400 (Canceled Entry - Provider: System Discharge - Comment: Automatically canceled at discontinue of medication order) Thiamine tablet 100 mg(Linked Group 3) 100 mg, Per NG tube, EVERY 8 HOURS, 15 doses, First dose on Mon12/30/22 at 2200, Last dose on Mon01/04/23 at 1400, During acute withdrawal period. 0514 (See Alternative - Provider: Mary Butts RN)1304 (See Alternative - Provider: Thais Servin, Student Nurse)2031 (See Alternative - Provider: Dangelo Odom RN) 0617 (See Alternative - Provider: Dangelo Odom RN)1350 (See Alternative - Provider: Dai Montana RN)2049 (See Alternative - Provider: Dangelo Odom RN) 0635 (See Alternative - Provider: Dangelo Odom RN)1400 (Canceled Entry - Provider: System Discharge - Comment: Automatically canceled at discontinue of medication order) Thiamine tablet 100 mg 100 mg, Oral, DAILY, First dose on Mon01/04/23 at 0900, Until Discontinued traZODone (DESYREL) tablet 100 mg 100 mg, Oral, DAILY AT BEDTIME, First dose on Mon12/30/22 at 2100, Until Discontinued 2031 (Given - Provider: Dangelo Odom RN) 2048 (Given - Provider: Dangelo Odom RN) Vancomycin HCl in NaCl (VANCOCIN) 1,000 mg in 200 ml NS premix IVPB (CANCELED) 1,000 mg (rounded from 1,036.5 mg = 15 mg/kg 69.1 kg Adjusted weight), Intravenous, Administer over 120 Minutes, EVERY 12 HOURS NON-STANDARD, First dose on Mon12/31/22 at 0430, Until Discontinued, Indication for treatment with Vancomycin - Culture/Source: L ankle SA Extravasation Risk 0514 ($$New Bag$$ - Provider: Mary Butts RN) PRN Medication Order 12/31/2022 01/01/2023 01/02/2023 alum/mag hydrox.-simethicone oral suspension 30 mL 30 mL, Oral, EVERY 6 HOURS NEEDED, Starting on Mon12/30/22 at 1428, Until Mon01/02/23 at 1803, Indigestion, Per 5 mL is equivalent to: (Alum-Mag Hydroxide 200-225 mg and Simethicone 20 mg) and (Alum-Mag Hydroxide 200-200 mg and Simethicone 20 mg) Benzocaine-menthol (CEPACOL) 15-3.6 MG per lozenge 1 lozenge 1 lozenge, Oral, EVERY 2 HOURS NEEDED, Starting on Mon12/30/22 at 1428, Until Mon01/02/23 at 1803, Sore Throat, Max 8 lozenges/day Patient may self-administer. Cyclobenzaprine (FLEXERIL) tablet 5 mg 5 mg, Oral, 3 TIMES DAILY NEEDED, Starting on Mon12/30/22 at 1428, Until Mon01/02/23 at 1803, Muscle spasms 2031 (Given - Provider: Dangelo Odom RN) 407 (Given - Provider: Dangelo Odom RN)2048 (Given - Provider: Dangelo Odom RN) 0635 (Given - Provider: Dangelo Odom RN) diphenhydrAMINE (BENADRYL) injection 25 mg(Linked Group 4) 25 mg, Intravenous, EVERY 6 HOURS NEEDED, Starting on Mon12/30/22 at 1428, Until Mon01/02/23 at 1803, Itching, Do Not use in patients 70 years of age or older diphenhydrAMINE (BENADRYL) tablet 25 mg(Linked Group 4) 25 mg, Oral, EVERY 6 HOURS NEEDED, Starting on Mon12/30/22 at 1428, Until Mon01/02/23 at 1803, Itching, Do Not use in patients 70 years of age or older. faMOTIdine (PEPCID) tablet 20 mg 20 mg, Oral, EVERY 12 HOURS NEEDED, Starting on Mon12/30/22 at 1428, Until Mon01/02/23 at 1803, GI Upset Lidocaine 1% for PICC (XYLOCAINE) 1 % injection SOLN 10-30 mg 10-30 mg (1-3 mL), Intradermal, ADMINISTER DIRECTED, 1 dose, Starting on Mon01/02/23 at 1219, Until Mon01/02/23 at 1803, Other, PICC Placement, Use plain lidocaine only. May use 1mL to 3 mL intradermally for PICC insertion. (PICC TEAM ONLY), Post-op/Post-Proc LORazepam (ATIVAN) injection 1 mg(Linked Group 5) 1 mg, Intravenous, EVERY 30 MINUTES NEEDED, Starting on Mon12/30/22 at 1901, Until Mon01/02/23 at 1803, Other, for alcohol withdrawal breakthrough symptoms., Give this dose if CIWA score > or equal to 15 or if two or more of the following symptoms: SBP >160 or DBP >100, HR >110, diaphoresis, tremors, hallucinations, or RASS > 2. Vital Signs and CIWA every 30 minutes while administering breakthrough doses. Extravasation Risk LORazepam (ATIVAN) injection 1-4 mg(Linked Group 6) 1-4 mg, Intravenous, EVERY 1 HOUR NEEDED, Starting on Mon12/30/22 at 1901, Until Mon01/02/23 at 1803, Other, CIWA score, Titrate to CIWA score: CIWA 8 - 14 = 1 mg; 15 - 20 = 2 mg; 21 - 30 = 3 mg and call [employer]; 31 - 45 = 4 mg and call [employer]. Extravasation Risk LORazepam (ATIVAN) injection 2 mg(Linked Group 5) 2 mg, Intravenous, EVERY 30 MINUTES NEEDED, Starting on Mon12/30/22 at 1901, Until Mon01/02/23 at 180, Other, for alcohol withdrawal breakthrough symptoms., Higher dose may be administered if lower dose was previously documented as ineffective and did not result in adverse effects (RR<10 or a significant decrease in the level of consciousness or RASS <-2). Decrease back to lower dose if patient has adverse effects, or no PRN used in previous 12 hours. Vital Signs and CIWA every 30 minutes while administering breakthrough doses. Extravasation Risk LORazepam (ATIVAN) tablet 1 mg(Linked Group 7) 1 mg, Oral, EVERY 30 MINUTES NEEDED, Starting on Mon12/30/22 at 1901, Until Mon01/02/23 at 1803, Other, for alcohol withdrawal breakthrough symptoms, Give this dose if CIWA score > or equal to 15 or if two or more of the following symptoms: SBP >160 or DBP >100, HR >110, diaphoresis, tremors, hallucinations, or RASS > 2. Vital Signs and CIWA every 30 minutes while administering breakthrough doses. LORazepam (ATIVAN) tablet 1 mg(Linked Group 8) 1 mg, Per NG tube, EVERY 30 MINUTES NEEDED, Starting on Mon12/30/22 at 1901, Until Mon01/02/23 at 1803, Other, for alcohol withdrawal breakthrough symptoms, Give this dose if CIWA score > or equal to 15 or if two or more of the following symptoms: SBP >160 or DBP >100, HR >110, diaphoresis, tremors, hallucinations, or RASS > 2. Vital Signs and CIWA every 30 minutes while administering breakthrough doses. LORazepam (ATIVAN) tablet 1-4 mg(Linked Group 6) 1-4 mg, Oral, EVERY 1 HOUR NEEDED, Starting on Mon12/30/22 at 1901, Until Mon01/02/23 at 1803, Other, CIWA score, Titrate to CIWA score: CIWA 8 - 14 = 1 mg; 15 - 20 = 2 mg; 21 - 30 = 3 mg and call [employer]; 31 - 45 = 4 mg and call [employer]. LORazepam (ATIVAN) tablet 1-4 mg(Linked Group 6) 1-4 mg, Per NG tube, EVERY 1 HOUR NEEDED, Starting on Mon12/30/22 at 1901, Until Mon01/02/23 at 1803, Other, CIWA score, Titrate to CIWA score: CIWA 8 - 14 = 1 mg; 15 - 20 = 2 mg; 21 - 30 = 3 mg and call [employer]; 31 - 45 = 4 mg and call [employer]. LORazepam (ATIVAN) tablet 2 mg(Linked Group 7) 2 mg, Oral, EVERY 30 MINUTES NEEDED, Starting on Mon12/30/22 at 1901, Until Mon01/02/23 at 1803, Other, for alcohol withdrawal breakthrough symptoms, Higher dose may be administered if lower dose was previously documented as ineffective and did not result in adverse effects (RR<10 or a significant decrease in the level of consciousness or RASS <-2). Decrease back to lower dose if patient has adverse effects, or no PRN used in previous 12 hours. Vital Signs and CIWA every 30 minutes while administering breakthrough doses. LORazepam (ATIVAN) tablet 2 mg(Linked Group 8) 2 mg, Per NG tube, EVERY 30 MINUTES NEEDED, Starting on Mon12/30/22 at 1901, Until Mon01/02/23 at 1803, Other, for alcohol withdrawal breakthrough symptoms, Higher dose may be administered if lower dose was previously documented as ineffective and did not result in adverse effects (RR<10 or a significant decrease in the level of consciousness or RASS <-2). Decrease back to lower dose if patient has adverse effects, or no PRN used in previous 12 hours. Melatonin tablet 6 mg 6 mg, Oral, DAILY AT BEDTIME NEEDED, Starting on Mon12/30/22 at 1428, Until Mon01/02/23 at 1803, Insomnia Ondansetron (ZOFRAN) tablet 4 mg(Linked Group 9) 4 mg, Oral, EVERY 6 HOURS NEEDED, Starting on Mon12/30/22 at 1428, Until Mon01/02/23 at 1803, Nausea / Vomiting, 1st Line Nausea / Vomiting Ondansetron 4mg/2ml (ZOFRAN) injection 4 mg(Linked Group 9) 4 mg, Intravenous, EVERY 6 HOURS NEEDED, Starting on Mon12/30/22 at 1428, Until Mon01/02/23 at 1803, Nausea / Vomiting, 1st Line Nausea / Vomiting, If patient is unable to tolerate PO. oxyCODONE (ROXICODONE) tablet 5 mg(Linked Group 10) 5 mg, Oral, EVERY 4 HOURS NEEDED, Starting on Mon12/30/22 at 1428, Until Mon01/02/23 at 1803, Mild Pain, Moderate Pain, Severe Pain, Use as initial dose. Higher dose may be administered if lower dose was previously documented as ineffective and did not result in adverse effects (RR<10, decrease in level of consciousness). 2031 (Given - Provider: Dangelo Odom RN) 040 (See Alternative - Provider: Dangelo Odom RN)1006 (See Alternative - Provider: Dai Montana RN)174 (See Alternative - Provider: Dai Montana RN) 0008 (See Alternative - Provider: Dangelo Odom RN)0635 (See Alternative - Provider: Dangelo Odom RN)1118 (See Alternative - Provider: Fatuma Serna RN) oxyCODONE HCl (ROXICODONE) tablet 10 mg(Linked Group 10) 10 mg, Oral, EVERY 4 HOURS NEEDED, Starting on Mon12/30/22 at 1428, Until Mon01/02/23 at 1803, Mild Pain, Moderate Pain, Severe Pain, Higher dose may be administered if lower dose was previously documented as ineffective and did not result in adverse effects (RR<10, decrease in level of consciousness). Decrease back to lower dose if patient has adverse effects, or no PRN used in previous 12 hours. 2031 (See Alternative - Provider: Dangelo Odom RN) 0408 (Given - Provider: Dangelo Odom RN)1006 (Given - Provider: Dai Montana RN)174 (Given - Provider: Dai Montana RN) 0008 (Given - Provider: Dangelo Odom RN)0635 (Given - Provider: Dangelo Odom RN)1118 (Given - Provider: Fatuma Serna RN) Polyvinyl Alcohol-Povidone PF (REFRESH) ophthalmic solution 1 drop 1 drop, Both Eyes, EVERY 2 HOURS NEEDED, Starting on Mon12/30/22 at 1428, Until 01/02/23 at 1803, Dry Eyes, Patient may self-administer. Sodium chloride 0.9% IV solution 250 mL Intravenous, at 20 mL/hr, NEEDED, Starting on Mon12/30/22 at 1428, Until Mon01/02/23 at 1803, Carrier Fluid - See Admin Inst., 250mL 0.9NS to be used as carrier fluid for intermittent small volume or piggyback medication administration as needed. Infusion rate of the carrier fluid should be set at 20 mL/hr unless the rate as the intermittent medication is less than 20 mL/hr. For intermittent medications with a rate less than 20 mL/hr set the carrier fluid at that rate of the intermittent or piggy back medication. Linked Groups Order Group 1: Folic acid (FOLVITE) tablet 1 mgJump to med 1 mg, Oral, DAILY, First dose on 12/31/22 at 0900, Until Discontinued Or Folic acid (FOLVITE) tablet 1 mgJump to med 1 mg, Per NG tube, DAILY, First dose on 12/31/22 at 0900, Until Discontinued Or Folic acid injection 1 mgJump to med 1 mg, Intravenous, Administer over 3 Minutes, DAILY, First dose on 12/31/22 at 0900, Until Discontinued
If unable to tolerate PO/NG.
Group 2: Multi-Vitamins tablet 1 tabletJump to med 1 tablet, Per NG tube, DAILY, First dose on 12/31/22 at 0900, Until Discontinued
Crush for NG tube administration.
Or Multi-Vitamins tablet 1 tabletJump to med 1 tablet, Oral, DAILY, First dose on 12/31/22 at 0900, Until Discontinued
Use PO route if patient tolerating PO.
Group 3: Thiamine tablet 100 mgJump to med 100 mg, Oral, EVERY 8 HOURS, 15 doses, First dose on Mon12/30/22 at 2200, Last dose on Mon01/04/23 at 1400
During acute withdrawal period.
Or Thiamine tablet 100 mgJump to med 100 mg, Per NG tube, EVERY 8 HOURS, 15 doses, First dose on Mon12/30/22 at 2200, Last dose on Mon01/04/23 at 1400
During acute withdrawal period.
Or Thiamine (Vitamin B-1) injection 100 mgJump to med 100 mg, Intravenous, EVERY 8 HOURS, 15 doses, First dose on Mon12/30/22 at 2200, Last dose on Mon01/04/23 at 1400
During acute withdrawal period.
Group 4: diphenhydrAMINE (BENADRYL) tablet 25 mgJump to med 25 mg, Oral, EVERY 6 HOURS NEEDED, Starting on Mon12/30/22 at 1428, Until Mon01/02/23 at 1803, Itching, Do Not use in patients 70 years of age or older. Or diphenhydrAMINE (BENADRYL) injection 25 mgJump to med 25 mg, Intravenous, EVERY 6 HOURS NEEDED, Starting on Mon12/30/22 at 1428, Until Mon01/02/23 at 1803, Itching, Do Not use in patients 70 years of age or older Group 5: LORazepam (ATIVAN) injection 1 mgJump to med 1 mg, Intravenous, EVERY 30 MINUTES NEEDED, Starting on Mon12/30/22 at 1901, Until Mon01/02/23 at 1803, Other, for alcohol withdrawal breakthrough symptoms.
Give this dose if CIWA score > or equal to 15 or if two or more of the following symptoms: SBP >160 or DBP >100, HR >110, diaphoresis, tremors, hallucinations, or RASS > 2. Vital Signs and CIWA every 30 minutes while administering breakthrough doses. Extravasation Risk
Or LORazepam (ATIVAN) injection 2 mgJump to med 2 mg, Intravenous, EVERY 30 MINUTES NEEDED, Starting on Mon12/30/22 at 1901, Until Mon01/02/23 at 1803, Other, for alcohol withdrawal breakthrough symptoms.
Higher dose may be administered if lower dose was previously documented as ineffective and did not result in adverse effects (RR<10 or a significant decrease in the level of consciousness or RASS <-2). Decrease back to lower dose if patient has adverse effects, or no PRN used in previous 12 hours. Vital Signs and CIWA every 30 minutes while administering breakthrough doses. Extravasation Risk
Group 6: LORazepam (ATIVAN) injection 1-4 mgJump to med 1-4 mg, Intravenous, EVERY 1 HOUR NEEDED, Starting on Mon12/30/22 at 1901, Until Mon01/02/23 at 1803, Other, CIWA score
Titrate to CIWA score: CIWA 8 - 14 = 1 mg; 15 - 20 = 2 mg; 21 - 30 = 3 mg and call [employer]; 31 - 45 = 4 mg and call [employer]. Extravasation Risk
Or LORazepam (ATIVAN) tablet 1-4 mgJump to med 1-4 mg, Oral, EVERY 1 HOUR NEEDED, Starting on Mon12/30/22 at 1901, Until Mon01/02/23 at 1803, Other, CIWA score
Titrate to CIWA score: CIWA 8 - 14 = 1 mg; 15 - 20 = 2 mg; 21 - 30 = 3 mg and call [employer]; 31 - 45 = 4 mg and call [employer].
Or LORazepam (ATIVAN) tablet 1-4 mgJump to med 1-4 mg, Per NG tube, EVERY 1 HOUR NEEDED, Starting on Mon12/30/22 at 1901, Until Mon01/02/23 at 1803, Other, CIWA score
Titrate to CIWA score: CIWA 8 - 14 = 1 mg; 15 - 20 = 2 mg; 21 - 30 = 3 mg and call [employer]; 31 - 45 = 4 mg and call [employer].
Group 7: LORazepam (ATIVAN) tablet 1 mgJump to med 1 mg, Oral, EVERY 30 MINUTES NEEDED, Starting on Mon12/30/22 at 1901, Until Mon01/02/23 at 1803, Other, for alcohol withdrawal breakthrough symptoms
Give this dose if CIWA score > or equal to 15 or if two or more of the following symptoms: SBP >160 or DBP >100, HR >110, diaphoresis, tremors, hallucinations, or RASS > 2. Vital Signs and CIWA every 30 minutes while administering breakthrough doses.
Or LORazepam (ATIVAN) tablet 2 mgJump to med 2 mg, Oral, EVERY 30 MINUTES NEEDED, Starting on Mon12/30/22 at 1901, Until Mon01/02/23 at 1803, Other, for alcohol withdrawal breakthrough symptoms
Higher dose may be administered if lower dose was previously documented as ineffective and did not result in adverse effects (RR<10 or a significant decrease in the level of consciousness or RASS <-2). Decrease back to lower dose if patient has adverse effects, or no PRN used in previous 12 hours. Vital Signs and CIWA every 30 minutes while administering breakthrough doses.
Group 8: LORazepam (ATIVAN) tablet 1 mgJump to med 1 mg, Per NG tube, EVERY 30 MINUTES NEEDED, Starting on Mon12/30/22 at 1901, Until Mon01/02/23 at 1803, Other, for alcohol withdrawal breakthrough symptoms
Give this dose if CIWA score > or equal to 15 or if two or more of the following symptoms: SBP >160 or DBP >100, HR >110, diaphoresis, tremors, hallucinations, or RASS > 2. Vital Signs and CIWA every 30 minutes while administering breakthrough doses.
Or LORazepam (ATIVAN) tablet 2 mgJump to med 2 mg, Per NG tube, EVERY 30 MINUTES NEEDED, Starting on Mon12/30/22 at 1901, Until Mon01/02/23 at 1803, Other, for alcohol withdrawal breakthrough symptoms
Higher dose may be administered if lower dose was previously documented as ineffective and did not result in adverse effects (RR<10 or a significant decrease in the level of consciousness or RASS <-2). Decrease back to lower dose if patient has adverse effects, or no PRN used in previous 12 hours.
Group 9: Ondansetron (ZOFRAN) tablet 4 mgJump to med 4 mg, Oral, EVERY 6 HOURS NEEDED, Starting on Mon12/30/22 at 1428, Until Mon01/02/23 at 1803, Nausea / Vomiting, 1st Line Nausea / Vomiting Or Ondansetron 4mg/2ml (ZOFRAN) injection 4 mgJump to med 4 mg, Intravenous, EVERY 6 HOURS NEEDED, Starting on Mon12/30/22 at 1428, Until Mon01/02/23 at 1803, Nausea / Vomiting, 1st Line Nausea / Vomiting
If patient is unable to tolerate PO.
Group 10: oxyCODONE (ROXICODONE) tablet 5 mgJump to med 5 mg, Oral, EVERY 4 HOURS NEEDED, Starting on Mon12/30/22 at 1428, Until Mon01/02/23 at 1803, Mild Pain, Moderate Pain, Severe Pain
Use as initial dose. Higher dose may be administered if lower dose was previously documented as ineffective and did not result in adverse effects (RR<10, decrease in level of consciousness).
Or oxyCODONE HCl (ROXICODONE) tablet 10 mgJump to med 10 mg, Oral, EVERY 4 HOURS NEEDED, Starting on Mon12/30/22 at 1428, Until Mon01/02/23 at 1803, Mild Pain, Moderate Pain, Severe Pain
Higher dose may be administered if lower dose was previously documented as ineffective and did not result in adverse effects (RR<10, decrease in level of consciousness). Decrease back to lower dose if patient has adverse effects, or no PRN used in previous 12 hours.
Scheduled Medication Order 02/27/2023 02/28/2023 03/01/2023 Acetaminophen (TYLENOL) tablet 650 mg 650 mg, Oral, EVERY 6 HOURS, First dose on Mon02/28/23 at 1445, Until Discontinued, Maximum dose of acetaminophen is 4000 mg from all sources in 24 hours. 1532 (Not Given - Provider: Carissa Conner RN - Reason: Patient/family refused)1747 (Given - Provider: Carissa Conner RN) 0008 (Given - Provider: Marcell Ferrari RN)0548 (Given - Provider: Marcell Ferrari RN)1215 (Given - Provider: Jamie Arciniega RN) apixaban (ELIQUIS) tablet 2.5 mg 2.5 mg, Oral, EVERY 12 HOURS, First dose on Mon03/01/23 at 0900, Until Discontinued, Due to the rapid onset of action of apixaban, no overlap is needed with other anticoagulants (e.g. enoxaparin, heparin)., Indications: DVT ppx 0745 (Given - Provid er: Jamie Arciniega RN) baclofen (LIORESAL) tablet 20 mg 20 mg, Oral, 2 TIMES DAILY, First dose on Mon02/28/23 at 1700, Until Discontinued 1603 (Given - Provider: Carissa Conner RN) 0744 (Given - Provider: Jamie Arciniega RN) ceFAZolin (ANCEF) 2 g in dextrose 100 mL premix IVPB (COMPLETED) 2 g, Intravenous, Administer over 30 Minutes, ONCE, 1 dose, On Mon02/28/23 at 1030 1040 (Given - Provider: Baljit Nuñez MD) ceFAZolin (ANCEF) 2 g in dextrose 100 mL premix IVPB (COMPLETED) 2 g, Intravenous, Administer over 30 Minutes, EVERY 8 HOURS NON-STANDARD, 2 doses, First dose on Mon02/28/23 at 1800, Last dose on Mon03/01/23 at 0200 1752 ($$New Bag$$ - Provider: Carissa Conner RN)1833 (Stopped - Provider: Carissa Conner RN) 0121 ($$New Bag$$ - Provider: Marcell Ferrari RN)0150 (Stopped - Provider: Marcell Ferrari RN) Diazepam (VALIUM) tablet 2 mg (COMPLETED) 2 mg, Oral, ONCE, 1 dose, On Mon03/01/23 at 1030 1037 (Given - Provid er: Jamie Arciniega RN) Docusate (COLACE) capsule 100 mg 100 mg, Oral, 2 TIMES DAILY, First dose on Mon02/28/23 at 1700, Until Discontinued 1603 (Given - Provider: Carissa Conner RN) 0745 (Given - Provider: Jamie Arciniega RN) Gabapentin (NEURONTIN) capsule 100 mg 100 mg, Oral, 3 TIMES DAILY, First dose on Mon02/28/23 at 1445, Until Discontinued 1531 (Given - Provider: Carissa Conner RN)2128 (Given - Provider: Marcell Ferrari RN) 0745 (Given - Provider: Jamie Arciniega RN)1400 (Canceled Entry - Provider: System Discharge - Comment: Automatically canceled at discontinue of medication order) rOPINIRole (REQUIP) tablet 2 mg 2 mg, Oral, 2 TIMES DAILY, First dose on Mon02/28/23 at 1700, Until Discontinued, Max 24 mg/day 1603 (Given - Provider: Carissa Conner RN) 0744 (Given - Provider: Jamie Arciniega, RN) traZODone (DESYREL) tablet 100 mg 100 mg, Oral, DAILY AT BEDTIME, First dose on Mon02/28/23 at 2100, Until Discontinued 2127 (Given - Provider: Marcell Ferrari RN) Continuous Medication Order 02/27/2023 02/28/2023 03/01/2023 Lactated ringers IV solution (CANCELED) Intravenous, at 50 mL/hr, CONTINUOUS, Starting on Mon02/28/23 at 0830, Until Mon02/28/23 at 1430 0845 ($$New Bag$$ - Provider: Elissa Avendaño RN)1147 ($$New Bag$$ - Provider: Baljit Nuñez MD)1500 (Stopped - Provider: Carissa Conner RN) Lactated ringers IV solution (CANCELED) Intravenous, at 50 mL/hr, CONTINUOUS, Starting on Mon02/28/23 at 1445, Until Mon03/01/23 at 0621 1530 ($$New Bag$$ - Provider: Carissa Conner RN)1752 (Paused - Provider: Marcell Ferrari RN)1822 (Restarted - Provider: Marcell Ferrari RN) 0121 (Paused - Provider: Marcell Ferrari RN)0151 (Restarted - Provider: Marcell Ferrari RN)0510 (Rate/Dose Verify - Provider: Marcell Ferrari RN)0744 (Stopped - Provider: Jamie Arciniega RN) PRN Medication Order 02/27/2023 02/28/2023 03/01/2023 alum/mag hydrox.-simethicone oral suspension 30 mL 30 mL, Oral, EVERY 6 HOURS NEEDED, Starting on Mon02/28/23 at 1430, Until Mon03/01/23 at 1535, Indigestion, Per 5 mL is equivalent to: (Alum-Mag Hydroxide 200-225 mg and Simethicone 20 mg) and (Alum-Mag Hydroxide 200-200 mg and Simethicone 20 mg) Benzocaine-menthol (CEPACOL) 15-3.6 MG per lozenge 1 lozenge 1 lozenge, Oral, EVERY 2 HOURS NEEDED, Starting on Mon02/28/23 at 1430, Until Mon03/01/23 at 1535, Sore Throat, Max 8 lozenges/day Patient may self-administer. Bupivacaine (PF) (MARCAINE) 0.5 % injection (CANCELED) NEEDED, Starting on Mon02/28/23 at 1209, Until Mon02/28/23 at 1319, Intra-op/Intra-Proc 1209 (Given - Provider: Cristopher Moreira MD) Cyclobenzaprine (FLEXERIL) tablet 5 mg 5 mg, Oral, 3 TIMES DAILY NEEDED, Starting on Mon02/28/23 at 1430, Until Mon03/01/23 at 1535, Muscle spasms 0251 (Given - Provid er: Marcell Ferrari RN) diphenhydrAMINE (BENADRYL) injection 25 mg(Linked Group 1) 25 mg, Intravenous, EVERY 6 HOURS NEEDED, Starting on Mon02/28/23 at 1430, Until Mon03/01/23 at 1535, Itching, Do Not use in patients 70 years of age or older diphenhydrAMINE (BENADRYL) tablet 25 mg(Linked Group 1) 25 mg, Oral, EVERY 6 HOURS NEEDED, Starting on Mon02/28/23 at 1430, Until Mon03/01/23 at 1535, Itching, Do Not use in patients 70 years of age or older. faMOTIdine (PEPCID) tablet 20 mg 20 mg, Oral, EVERY 12 HOURS NEEDED, Starting on Mon02/28/23 at 1430, Until Mon03/01/23 at 1535, GI Upset HYDROmorphone (DILAUDID) injection 0.2 mg(Linked Group 2) 0.2 mg, Intravenous, EVERY 4 HOURS NEEDED, Starting on Mon02/28/23 at 1430, Until Mon03/01/23 at 1535, Severe Pain, Use only if patient is unable to take oral medications or if pain is unrelieved by oral medications. Use as initial dose. Higher dose may be administered if lower dose was previously documented as ineffective and did not result in adverse effects (RR<10, decrease in level of consciousness). 1530 (See Alternative - Provider: Carissa Conner RN) HYDROmorphone (DILAUDID) injection 0.5 mg(Linked Group 2) 0.5 mg, Intravenous, EVERY 4 HOURS NEEDED, Starting on Mon02/28/23 at 1430, Until Mon03/01/23 at 1535, Severe Pain, Use only if patient is unable to take oral medications or if pain is unrelieved by oral medications. Higher dose may be administered if lower dose was previously documented as ineffective and did not result in adverse effects (RR<10, decrease in level of consciousness). Decrease back to lower dose if patient has adverse effects, or no PRN used in previous 12 hours. 1530 (Given - Provider: Carissa Conner RN - Comment: approved) Lidocaine-epinephrine 1%-1:[id number] injection (CANCELED) NEEDED, Starting on Mon02/28/23 at 1210, Until Mon02/28/23 at 1319, Intra-op/Intra-Proc 1210 (Given - Provider: Cristopher Moreira MD - Comment: local injection) Melatonin tablet 6 mg 6 mg, Oral, DAILY AT BEDTIME NEEDED, Starting on Mon02/28/23 at 1430, Until Mon03/01/23 at 1535, Insomnia Ondansetron (ZOFRAN) tablet 4 mg(Linked Group 3) 4 mg, Oral, EVERY 6 HOURS NEEDED, Starting on Mon02/28/23 at 1430, Until Mon03/01/23 at 1535, Nausea / Vomiting, 1st Line Nausea / Vomiting Ondansetron 4mg/2ml (ZOFRAN) injection 4 mg(Linked Group 3) 4 mg, Intravenous, EVERY 6 HOURS NEEDED, Starting on Mon02/28/23 at 1430, Until Mon03/01/23 at 1535, Nausea / Vomiting, 1st Line Nausea / Vomiting, If patient is unable to tolerate PO. oxyCODONE (ROXICODONE) tablet 5 mg (CANCELED) 5 mg, Oral, EVERY 5 MINUTES NEEDED, Starting on Mon02/28/23 at 1255, Until Mon02/28/23 at 1430, Moderate Pain, May repeat x 1 dose for moderate pain, May repeat one dose for moderate pain, Post-op/Post-Proc 1342 (Given - Provider: Carline Martinez RN) oxyCODONE (ROXICODONE) tablet 5 mg(Linked Group 4) 5 mg, Oral, EVERY 4 HOURS NEEDED, Starting on Mon02/28/23 at 1430, Until Mon03/01/23 at 1535, Mild Pain, Moderate Pain, Severe Pain, Use as initial dose. Higher dose may be administered if lower dose was previously documented as ineffective and did not result in adverse effects (RR<10, decrease in level of consciousness). 174 (See Alternative - Provider: Carissa Conner RN)2201 (See Alternative - Provider: Marcell Ferrari RN) 025 (See Alternative - Provider: Marcell Ferrari RN)0745 (See Alternative - Provider: Jamie Arciniega RN)1215 (See Alternative - Provider: Jamie Arciniega RN) oxyCODONE HCl (ROXICODONE) tablet 10 mg(Linked Group 4) 10 mg, Oral, EVERY 4 HOURS NEEDED, Starting on Mon02/28/23 at 1430, Until Mon03/01/23 at 1535, Mild Pain, Moderate Pain, Severe Pain, Higher dose may be administered if lower dose was previously documented as ineffective and did not result in adverse effects (RR<10, decrease in level of consciousness). Decrease back to lower dose if patient has adverse effects, or no PRN used in previous 12 hours. 174 (Given - Provider: Carissa Conner RN)2201 (Given - Provider: Marcell Ferrari RN) 025 (Given - Provider: Marcell Ferrari RN)0745 (Given - Provider: Jamie Arciniega RN)1215 (Given - Provider: Jamie Arciniega RN) Polyvinyl Alcohol-Povidone PF (REFRESH) ophthalmic solution 1 drop 1 drop, Both Eyes, EVERY 2 HOURS NEEDED, Starting on Mon02/28/23 at 1430, Until Mon03/01/23 at 1535, Dry Eyes, Patient may self-administer. Sodium chloride 0.9 % irrigation (CANCELED) NEEDED, Starting on Mon02/28/23 at 1231, Until Mon02/28/23 at 1319, Intra-op/Intra-Proc 1231 (Given - Provider: Cristopher Moreira MD) Sodium chloride 0.9% IV solution 250 mL Intravenous, at 20 mL/hr, NEEDED, Starting on Mon02/28/23 at 1430, Until Mon03/01/23 at 1535, Carrier Fluid - See Admin Inst., 250mL 0.9NS to be used as carrier fluid for intermittent small volume or piggyback medication administration as needed. Infusion rate of the carrier fluid should be set at 20 mL/hr unless the rate as the intermittent medication is less than 20 mL/hr. For intermittent medications with a rate less than 20 mL/hr set the carrier fluid at that rate of the intermittent or piggy back medication. Linked Groups Order Group 1: diphenhydrAMINE (BENADRYL) tablet 25 mgJump to med 25 mg, Oral, EVERY 6 HOURS NEEDED, Starting on Mon02/28/23 at 1430, Until Mon03/01/23 at 1535, Itching, Do Not use in patients 70 years of age or older. Or diphenhydrAMINE (BENADRYL) injection 25 mgJump to med 25 mg, Intravenous, EVERY 6 HOURS NEEDED, Starting on Mon02/28/23 at 1430, Until Mon03/01/23 at 1535, Itching, Do Not use in patients 70 years of age or older Group 2: HYDROmorphone (DILAUDID) injection 0.2 mgJump to med 0.2 mg, Intravenous, EVERY 4 HOURS NEEDED, Starting on Mon02/28/23 at 1430, Until Mon03/01/23 at 1535, Severe Pain
Use only if patient is unable to take oral medications or if pain is unrelieved by oral medications. Use as initial dose. Higher dose may be administered if lower dose was previously documented as ineffective and did not result in adverse effects (RR<10, decrease in level of consciousness).
Or HYDROmorphone (DILAUDID) injection 0.5 mgJump to med 0.5 mg, Intravenous, EVERY 4 HOURS NEEDED, Starting on Mon02/28/23 at 1430, Until Mon03/01/23 at 1535, Severe Pain
Use only if patient is unable to take oral medications or if pain is unrelieved by oral medications. Higher dose may be administered if lower dose was previously documented as ineffective and did not result in adverse effects (RR<10, decrease in level of consciousness). Decrease back to lower dose if patient has adverse effects, or no PRN used in previous 12 hours.
Group 3: Ondansetron (ZOFRAN) tablet 4 mgJump to med 4 mg, Oral, EVERY 6 HOURS NEEDED, Starting on Mon02/28/23 at 1430, Until Mon03/01/23 at 1535, Nausea / Vomiting, 1st Line Nausea / Vomiting Or Ondansetron 4mg/2ml (ZOFRAN) injection 4 mgJump to med 4 mg, Intravenous, EVERY 6 HOURS NEEDED, Starting on Mon02/28/23 at 1430, Until Mon03/01/23 at 1535, Nausea / Vomiting, 1st Line Nausea / Vomiting
If patient is unable to tolerate PO.
Group 4: oxyCODONE (ROXICODONE) tablet 5 mgJump to med 5 mg, Oral, EVERY 4 HOURS NEEDED, Starting on Mon02/28/23 at 1430, Until Mon03/01/23 at 1535, Mild Pain, Moderate Pain, Severe Pain
Use as initial dose. Higher dose may be administered if lower dose was previously documented as ineffective and did not result in adverse effects (RR<10, decrease in level of consciousness).
Or oxyCODONE HCl (ROXICODONE) tablet 10 mgJump to med 10 mg, Oral, EVERY 4 HOURS NEEDED, Starting on Mon02/28/23 at 1430, Until Mon03/01/23 at 1535, Mild Pain, Moderate Pain, Severe Pain
Higher dose may be administered if lower dose was previously documented as ineffective and did not result in adverse effects (RR<10, decrease in level of consciousness). Decrease back to lower dose if patient has adverse effects, or no PRN used in previous 12 hours.
Scheduled Medication Order 06/29/2023 06/30/2023 07/01/2023 ketorolac (TORADOL) injection 15 mg (COMPLETED) 15 mg, IntraMUSCular, ONCE, 1 dose, On 07/01/23 at 1145, Do not administer for more than 5 days. 1138 (Given - Provid er: Criss Brunson RN) Ordered Prescriptions (unrec ognized section and content) Prescription Sig Dispensed Refills Start Date End Da te oxyCODONE (ROXICODONE) 5 MG immediate release tabletIndications:Pos t-op pain Take 1 tablet by mouth every 6 hours as needed for Pain (for severe breakthrough pain) for up to 7 days. May take 2 tablets for severe breakthrough pain. 50 tablet 0 06/26/2022 07/03/2022 doxycycline hyclate (VIBRA-TABS) 100 MG tablet Take 1 tablet by mouth in the morning and 1 tablet before bedtime. Do all this for 14 days. 28 tablet 0 06/26/2022 07/10/2022 gabapentin (NEURONTIN) 300 MG capsule Take 1 capsule by mouth in the morning and 1 capsule before bedtime. Do all this for 180 days. Intended supply: 90 days. 180 capsule 1 06/24/2022 12/21/2022 docusate sodium (COLACE) 100 MG capsule Take 1 capsule by mouth in the morning and 1 capsule before bedtime. 60 capsule 0 06/24/2022 07/24/2022 acetaminophen (TYLENOL) 500 MG tablet Take 2 tablets by mouth every 6 hours as needed for Pain 180 tablet 5 06/24/2022 traMADol (ULTRAM) 50 MG tabletIndications:Sep tic arthritis of left ankle, due to unspecified organism (HCC) Take 1 tablet by mouth every 6 hours as needed for Pain for up to 8 days. Intended supply: 5 days. Take lowest dose possible to manage pain 30 tablet 0 06/24/2022 06/26/2022 Prescription Sig Dispensed Refills Start Date End Da aspirin EC 81 MG EC tablet Take 1 tablet by mouth daily 30 tablet 3 11/25/2022 oxyCODONE-acetaminophen (PERCOCET) 5-325 MG per tabletIndications:Septic arthritis of left ankle, due to unspecified organism (HCC) Take 2 tablets by mouth every 6 hours as needed for Pain for up to 7 days. Intended supply: 7 days. Take lowest dose possible to manage pain Max Daily Amount: 8 tablets 40 tablet 0 11/25/2022 12/02/2022 Care Teams (unrecognized sec tion and content) Pole Shaver Relationship Specialty Start Date End Date [facility] - Ezekiel Montgomery [address] [place] [address] [address] [place] [phone] PCP - General Other 05/19/21 Pole Shaver Relationship Specialty Start Date End Date [facility] [place], Other [address] [address] [place] [phone] PCP - General Other 05/19/21 Pole Shaver Relationship Specialty Start Date End Date [facility] [place], Other [address] [facility] [address] [place] [phone] PCP - General Other 05/19/[address] MD [address] [place] [phone] Infectious Disease Infectious Disease 01/03/23 02/08/23 Barbie Mendoza, OUTSOLE COMPRESSOR-PHYSICAL MEDICINE SPECIALIST [address] [place] [address], [place] [phone] Certified Nurse Practitioner 01/03/23 02/10/23 Pole Shaver Relationship Specialty Start Date End Date [facility] [place], Other [address] [facility] [address] [place] [phone] PCP - General Other 05/19/[address] MD [address] [place] [address], [place] [phone] Infectious Disease Infectious Disease 01/03/23 02/08/23 Barbie Mendoza, OUTSOLE COMPRESSOR-PHYSICAL MEDICINE SPECIALIST [address] [place] [address], [place] [phone] Certified Nurse Practitioner 01/03/23 02/10/23 Pole Shaver Relationship Specialty Start Date End Date [facility] [place], Other [address] [facility] [address] [place] [phone] PCP - General Other 05/19/21 Pole Shaver Relationship Specialty Start Date End Date [facility] [place], Other [address] [facility] [address] [place] [phone] PCP - General Other 05/19/21 Pole Shaver Relationship Specialty Start Date End Date [facility] [place], Other [address] [facility] [address] [place] [phone] PCP - General Other 05/19/21 Pole Shaver Relationship Specialty Start Date End Date [facility] [place], Other [address] [facility] [address] [place] [address] PCP - General Other 05/19/21 Pole Shaver Relationship Specialty Start Date End Date [facility] [place], Other [address] [facility] [address] [place] [phone] PCP - General Other 05/19/21 Pole Shaver Relationship Specialty Start Date End Date [facility] [place], Other [address] [facility] [address] [place] [phone] PCP - General Other 05/19/21 Pole Shaver Relationship Specialty Start Date End Date [facility] [place], Other [address] [facility] [address] [place] [address] PCP - General Other 05/19/21 Pole Shaver Relationship Specialty Start Date End Date [facility] [place], Other [address] [facility] [address] [place] [phone] PCP - General Other 05/19/21 Pole Shaver Relationship Specialty Start Date End Date [facility] [place], Other [address] [facility] [address] [place] [address] PCP - General Other 05/19/21 Pole Shaver Relationship Specialty Start Date End Date [facility] [place], Other [address] [facility] [address] [place] [phone] PCP - General Other 05/19/21 Pole Shaver Relationship Specialty Start Date End Date [facility] [place], Other [address] [facility] [address] [place] [phone] PCP - General Other 05/19/21 Pole Shaver Relationship Specialty Start Date End Date [facility] [place], Other [address] [facility] [address] [place] [phone] PCP - General Other 05/19/21 Pole Shaver Relationship Specialty Start Date End Date [facility] [place], Other [address] [facility] [address] [place] [phone] PCP - General Other 05/19/21 Pole Shaver Relationship Specialty Start Date End Date [facility] [place], Other [address] [facility] [address] [place] [phone] PCP - General Other 05/19/21 FOR RECORDS PERTAINING TO PATIENTS WHO ARE OR HAVE BEEN ENROLLED IN A CHEMICAL DEPENDENCY/SUBSTANCEABUSE PROGRAM, SOME INFORMATION MAY BE OMITTED. This clinical summary was aggregated from multiple sources. Caution should be exercised in using it in the provision of clinical care. This summary normalizes information from multiple sources, and as a consequence, information in this document may materially change the coding, format and clinical context of patient data. In addition, data may be omitted in some cases. CLINICAL DECISIONS SHOULD BE BASED ON THE PRIMARY CLINICAL RECORDS. [employer] [facility]. provides no warranty or guarantee of the accuracy or completeness of information in this document.
[2024-09-17 07:23] LABS: Basophils Percent Auto 0.4 % (0.2-2.0); Eosinophils Absolute Auto 0.1 10^3/uL (0.0-0.7); Hematocrit 41.7 % (42.0-54.0); Hemoglobin 13.9 g/dL (14.0-18.0); Immature Granulocytes Abs Auto 0.28 10^3/uL (0.00-0.03); Immature Granulocytes Pct Auto 3.6 % (0.0-0.5); Lymphocytes Percent Auto 25.4 % (20.5-60.0); Mean Corpuscular HGB Conc 33.3 g/dL (29.9-35.2); Mean Corpuscular Hemoglobin 29.3 pg (25.9-34.0); Mean Platelet Volume 10.3 fL (9.5-13.5); Monocytes Absolute Auto 0.9 10^3/uL (0.3-0.8); Neutrophils Absolute Auto 4.6 10^3/uL (1.4-6.5); Neutrophils Percent Auto 58.6 % (43.0-75.0); Platelet Count 208 10^3/uL (150-450); Red Blood Count 4.74 10^6/uL (4.70-6.10); Red Cell Distribution Width 13.7 % (11.0-15.0); White Blood Count 7.8 10^3/uL (4.0-11.0)
[2024-09-17 07:41] LABS: Anion Gap 14.9; BUN Creatinine Ratio 14.6; Calcium 8.3 mg/dL (8.5-10.1); Carbon Dioxide 23.2 mmol/L (21.0-32.0); Chloride 99 mmol/L (98-107); Estimated GFR (African America >60 (>=60 mL/min/1.73m^2); Estimated GFR (Non-African Ame >60 (>=60 mL/min/1.73m^2); Glucose 96 mg/dL (74-106); Potassium 4.1 mmol/L (3.5-5.1); Sodium 133 mmol/L (136-145)
[2024-09-17 07:58] LABS: Glucometer 102 mg/dL (74-106)
[2024-09-17] MEDS: LACTATED RINGER'S SOLUTION 1,000 ML 50 ML IV ×2 (08:29→11:50)
[2024-09-17] MEDS: FAMOTIDINE/PF 20 MG/2 ML VIAL IV (08:49)
--- NOTE | 2024-09-17 09:35 | XR_ITS ---
The [address] [address] Patient Name: GEO CARRASQUILLO MRN: [id number] date: 1955 Sex: M Assigned Patient Location: [facility] Current Patient Location: [facility] Accession/Order Number: [id number] Exam Date: 09/17/2024 13:40 Report Date: 09/17/2024 15:58 At the request of: ANANT MALIK Procedure: XR ankle LT min 3V PROCEDURE: XR ankle LT min 3V COMPARISON: 07/30/2024 HISTORY: nonunion STJ FINDINGS: BONES:Interval removal of the ankle fusion hardware with 2 cannulated screws extending from the talus into the navicular and from the distal tibia into the navicular. Remote resection of the distal fibula. SOFT TISSUES:Postprocedural soft tissue swelling and subcutaneous emphysema. Vascular calcifications EFFUSION:None visible. OTHER: Negative. XR/XR ankle LT min 3V IMPRESSION: Postsurgical changes from removal of fusion hardware Electronically authenticated by: CAS MENDIOLA Date: 09/17/2024 15:58
--- NOTE | 2024-09-17 10:06 | PM.ORONB ---
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 Moreira. He presented to me for second opinion as he was continuing to have daily pain which limited activities a living and recreation. He is unable to go up or down steps and has pain with every step he takes. Majority of his pain is located to his heel and lateral hindfoot but also has pain over palpable hardware in the midshaft of the tibia. I did obtain a CT scan which demonstrates fused tibiotalar joint and no bony union at the subtalar joint with mild loosening of the hardware spanning both joints. I discussed the potential risks and benefits of nonsurgical treatment with bone stimulator and prolonged immobilization versus surgical revision given the patient's amount of pain and that he has been dealing with this for more than 2 years he would like to undergo surgical revision. Intraoperative findings: Procedure in detail: Patient was identified preoperative holding by myself which time correct side and site were marked and consent was obtained. Regional anesthesia was performed by the anesthesia team and the patient was brought back in the operating theater placed on table in supine position with a thigh tourniquet. Preoperative antibiotics were administered. General anesthesia was administered and the right lower extremity was prepped and draped in usual sterile fashion. Formal timeout was performed and the right foot and ankle were exsanguinated and the tourniquet was inflated. Utilizing fluoroscopy the cross lock screws were identified and marked on the skin. Incision was made on the plantar heel and bone was cleared from the base of the nail allowing the extraction device to be connected to the peter. Then a combination of sharp and blunt dissection was used to remove the proximal cross lock screws followed by the distal cross lock screws. A lateral extensile incision was then utilized exposing the sinus tarsi and distal fibula. The distal fibula was extracted utilizing an osteotome, curettes and osteotomes. The lateral to medial cross leg screws were then removed appropriately. The nail was then removed and the surgical site was irrigated with copious saline. All screw holes were aggressively curetted until healthy bleeding bone. A reamer was used to reprep the canal within the calcaneus talus and distal tibia. The subtalar joint was further exposed and was then reprepped for fusion utilizing rongeurs, curettes, osteotomes. The surgical site was irrigated with copious saline. Utilizing clean rongeur fibrous tissue from the subtalar joint was sent to microbiology for specimen although there was no obvious signs of infection. Then cerament mixed with vancomycin was prepared on the back table while the subtalar joint was being irrigated. Bone allograft was then packed into the fusion site. Once prepared with a allograft was implanted into the canal left by the intramedullary peter and allowed to dry. Then An incision over theAnterior ankle was created and a combination of sharp and blunt dissection was taken down to bone. The subtalar joint was pinned first from the talar neck across the subtalar joint into the calcaneus and an 8.0 mm cannulated beam was placed accordingly. Utilizing the same incision another guidewire was placed from the anterior distal tibia across the ankle and subtalar joint into the calcaneus. Position was checked and a 6.5 mm beam was placed over this wire. Compression instability were noted. All surgical sites were irrigated with copious saline and incisions were closed in layers. The tourniquet was deflated with a prompt hyperemic response dry sterile dressing and multilayer modified Brown compression posterior splint was applied. Patient tolerated procedure and anesthesia well transferred to recovery room with vital signs stable and brisk cap refill to left toes Postoperative plan: Transfer to medical surgical unit once stable for admission under the hospitalist care Dr. Mayorga notified of the patient and the plan Perioperative antibiotics, DVT prophylaxis and multimodal pain medication were ordered Nonweightbearing to the operative extremity -physical therapy consulted Will follow Implants: Vilex beams Cerament and sparc bone allograft Anesthesia: regional and General-LMA Surgeon: Jim Pringle Estimated blood loss (mL): 10 Pathology: other (Fibrous tissue from subtalar joint) Condition: stable Disposition: PACU
[2024-09-17] MEDS: CEFAZOLIN SODIUM/DEXTROSE,ISO 2 GM/50 ML PIGGYBACK IV (10:18)
--- NOTE | 2024-09-17 10:26 | PC.NURSE ---
0956- Final timeout completed. Patient placed on right hip. Patient placed on monitor and O2 at 3l/min via nc. 0957- Patient medicated with Versed per Dr. Temple. 1002- Left popliteal site landmarked with ultrasound per Dr. Temple. Popliteal site injected. 1003- left popliteal block completed. 1004- Patient positioned on back. Left groin site prepped in sterile technique per Dr. Temple. 1006- Left femoral site landmarked per ultrasound per Dr. Temple. 1009- Left femora site injected. 1011- Block completed. Patient tolerated it well. See posted vital signs.
[2024-09-17] MEDS: VANCOMYCIN HCL 1,000 MG VIAL 1000 MG TOPICAL (11:50)
[2024-09-17 13:27] LABS: Glucometer 116 mg/dL (74-106)
--- NOTE | 2024-09-17 14:59 | SWNOTE1 ---
SW met with pt to discuss the need for a wheelchair. Pt voiced he has had 5 surgeries and he will need a wheelchair for the way his home is set up. He lives with at home. He had a wheelchair from previous surgery but returned it. He had rented it. SW asked if he had other insurance besides the [facility], he stated social security. SW asked if it was Medicare and he stated yes. SW asked if he had got any DME equipment within the last 5 years and he stated no. DARIUS asked about the other wheelchair, but he again voiced he rented it. Pt's walked in the room. SW explained that SW can get one through his Medicare, but he can only get 1 DME equipment every 5 years. Pt and in agreement that they will rent one. Pt lives in [place]. SW to call companies in [place] to get pricing. DARIUS called [employer], but it took SW to an 800 number and they said they will have [place] office call SW. [employer] has them for 45.00 per month and [employer] in [place] does not have them. SW to let pt and know.
--- NOTE | 2024-09-17 17:36 | PM.HP ---
HPI H&P: HPI History of Present Illness Chief complaint: pseudarthrosis after fusion left Narrative: 69-year-old male with chronic back pain and alcohol use disorder who had previously undergone atleast 3 left foot/ankle surgeries with the last being ankle and subtalar joint fusion performed in 2021 was struggling with daily pain with limited his daily activities. 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 Patient drinks about 10 cans of beers daily and had requested that he be allowed to drink beer so that he does not go into withdrawal. I carefully took his hx, his current consumption, and explained to him that while he is at high risk of alcohol withdrawal, we also have to be mindful of potentiating effects of alcohol with recent anesthesia and oral narcotics he is on for post op pain control. Unfortunately, pharmacy did not have alcohol for patients. He was allowed to have a maximum of 5 cans of light beers so that he does not develop withdrawal while also a safe amount with concurrent use of narcotics. Of note, patient has been on high dose of oral narcotics for chronic back pain and has developed tolerance as a result. At the time of my evaluation, he had no symptoms to offer. Opioid HPI Opioid Management Most Recent Pain and Opioid Data: Last Pain Scale 0 09/17/24 16:30 09/17/24 Last Pain Intensity 0 09/17/24 16:30 09/17/24 Last Pain Assessment 09/17/24 16:44 Review of Systems ROS Status of ROS 10 or more systems reviewed and unremarkable except as noted in history and below [facility] Medical History (Updated 09/17/24 @ 17:38 by Shaikh Mukesh MD) Alcohol use disorder ?F10.90 - Alcohol use, unspecified, uncomplicated (ICD-10) RLS (restless legs syndrome) ?G25.81 - Restless legs syndrome (ICD-10) Neck pain ?M54.2 - Cervicalgia (ICD-10) Back pain ?M54.9 - Dorsalgia, unspecified (ICD-10) Erectile dysfunction ?N52.9 - Male erectile dysfunction, unspecified (ICD-10) Valgus deformity, not elsewhere classified, left ankle ?M21.072 - Valgus deformity, not elsewhere classified, left ankle (ICD-10) Pain due to internal orthopedic prosthetic device ?T84.84XA - Pain due to internal orthopedic prosthetic devices, implants and grafts, initial encounter (ICD-10) Left ankle pain ?M25.572 - Pain in left ankle and joints of left foot (ICD-10) Primary osteoarthritis, left ankle and foot ?M19.072 - Primary osteoarthritis, left ankle and foot (ICD-10) Pseudarthrosis after fusion or arthrodesis ?M96.0 - Pseudarthrosis after fusion or arthrodesis (ICD-10) Surgical History (Updated 09/04/24 @ 12:11 by Cait Barclay NP) S/P epidural steroid injection ?Z92.241 - Personal history of systemic steroid therapy (ICD-10) H/O radiofrequency ablation (RFA) of nerve of lumbar spine ?Z98.890 - Other specified postprocedural states (ICD-10) H/O umbilical hernia repair ?Z98.890 - Other specified postprocedural states (ICD-10) ?Z87.19 - Personal history of other diseases of the digestive system (ICD-10) S/P rotator cuff repair ?Z98.890 - Other specified postprocedural states (ICD-10) S/P placement of nerve stimulator ?Z96.82 - Presence of neurostimulator (ICD-10) History of ankle surgery ?Z98.890 - Other specified postprocedural states (ICD-10) Status post total shoulder arthroplasty ?Z96.619 - Presence of unspecified artificial shoulder joint (ICD-10) Family History (Updated 09/04/24 @ 11:43 by Cait Barclay NP) Other Family history not known due to adoption Social History (Updated 09/04/24 @ 11:42 by Cait Barclay NP) Within the past year, how often did you have a drink containing alcohol: 4 or more times a week Within the past year, how many standard drinks containing alcohol did you have on a typical day: 3 or 4 Within the past year, how often did you have six or more drinks on one occasion: daily or almost daily Total score: 6 Score interpretation: A score of 4 or more indicates drinking is likely to affect patient's safety. Smoking status: Never smoker Non-prescribed substance use: denies use Highest level of school completed/degree received: high school graduate Meds Home Medications and Allergies Home Medications ?Medication ?Instructions ?Recorded ?Confirmed ?Type buprenorphine HCl 75 mcg buccal 75 mcg buccal Q12H 09/04/24 09/17/24 History film (Belbuca) gabapentin 300 mg capsule 300 mg PO DAILY 09/04/24 09/17/24 History oxycodone-acetaminophen 5 mg-325 1 tab PO Q6H 09/04/24 09/17/24 History mg tablet (Percocet) ropinirole 4 mg tablet 4 mg PO BID 09/04/24 09/17/24 History sildenafil 50 mg tablet 50 mg PO DAILY PRN sexual activity 09/04/24 09/17/24 History tramadol 50 mg tablet 50 mg PO Q4H 09/04/24 09/17/24 History trazodone 100 mg tablet 100 mg PO DAILY 09/04/24 09/17/24 History Allergies Allergy/AdvReac Type Severity Reaction Status Date / Time No Known Drug Allergies Allergy Verified 09/04/24 11:35 Exam Constitutional Vital Signs, click to edit/add: Last Vital Signs Temp 98.0 F 09/17/24 15:42 Pulse 121 H 09/17/24 16:00 Resp 18 09/17/24 15:42 BP 154/66 H 09/17/24 15:42 Pulse Ox 97 09/17/24 17:16 O2 Del Method Room Air 09/17/24 17:16 O2 Flow Rate 2 09/17/24 14:16 Documenting provider has reviewed patient's vital signs: yes Common normals: no apparent distress and oriented x3 General appearance: cooperative [facility] [place] Common normals: normocephalic and head/scalp atraumatic Head and scalp: normocephalic and atraumatic Eye Common normals: conjunctivae normal and no scleral icterus Conjunctiva: conjunctiva(e) normal Respiratory Common normals: normal respiratory effort and clear to auscultation bilaterally Effort & inspection: able to speak in complete sentences Auscultation: clear to auscultation bilaterally Cardio Common normals: S1 normal heart sound and S2 normal heart sound Rate: tachycardic Heart sounds: S1 normal and S2 normal GI Common normals: Normal to inspection, nondistended, normoactive bowel sounds present, soft to palpation, non-tender and no hepatosplenomegaly Palpation: soft and no hepatosplenomegaly Neuro Common normals: oriented x3, moves all extremities and no focal motor deficits Psych Common normals: mental status grossly normal, denies hallucinations, denies homicidal ideation and denies suicidal ideation Results Labs Labs: Short CBC 09/17/24 Range/Units 07:19 WBC 7.8 (4.0-11.0) 10^3/uL Hgb 13.9 L (14.0-18.0) g/dL Hct 41.7 L (42.0-54.0) % Plt Count 208 (150-450) 10^3/uL BMP 09/17/24 07:19 Sodium 133 L Potassium 4.1 Chloride 99 Carbon Dioxide 23.2 BUN 13.0 Creatinine 0.89 Glucose 96 Calcium 8.3 L Assessment and Plan Assessment and Plan (1) Left ankle pain: Qualifiers: Chronicity: chronic Qualified Code(s): M25.572 - Pain in left ankle and joints of left foot; G89.29 - Other chronic pain (2) Pseudarthrosis after fusion or arthrodesis: (3) Pain due to internal orthopedic prosthetic device: Qualifiers: Encounter type: subsequent encounter Qualified Code(s): T84.84XD - Pain due to internal orthopedic prosthetic devices, implants and grafts, subsequent encounter (4) RLS (restless legs syndrome): (5) Alcohol use disorder: Plan POD #1, s/p Revision of left subtalar joint fusion with excision of nonunion, removal of deep orthopedic hardware and application of short leg splint Pain management as per Podiatry. Monitor for alcohol withdrawal closely. Allowed to drink maximum 5 cans of light beer. Ordered PO ativan as needed in case of alcohol withdrawal. Resume home medications. Counseled on alcohol use and risks associated with excessive alcohol use. Urinary Catheter Management Urinary Catheter Management Urethral: Cath placed during this visit: no
[2024-09-17] MEDS: ENOXAPARIN SODIUM 40 MG/0.4 ML SYRINGE SUBQ (17:53)
[2024-09-17] MEDS: ZINC GLUCONATE 50 MG TABLET PO (17:53)
[2024-09-17] MEDS: CHOLECALCIFEROL (VITAMIN D3) 125 MCG/5,000 UNIT TABLET PO (17:53)
[2024-09-17] MEDS: CEFAZOLIN SODIUM/DEXTROSE,ISO 1 GM/50 ML PREMIX IV (17:55)
[2024-09-17] MEDS: ROPINIROLE HCL 1 MG TABLET 4 MG PO (20:01)
[2024-09-17] MEDS: OXYCODONE HCL 5 MG TABLET PO (21:47)
[2024-09-18] VITALS (9 sets, daily range): BP systolic 111–137; BP diastolic 67–74; PULSE 85–110; TEMP 36.6–36.8; O2SAT 94
[2024-09-18] MEDS: CEFAZOLIN SODIUM/DEXTROSE,ISO 1 GM/50 ML PREMIX IV ×2 (01:52→09:45)
[2024-09-18] MEDS: OXYCODONE HCL 5 MG TABLET PO ×2 (05:02→09:45)
[2024-09-18 05:36] LABS: Basophils Percent Auto 0.1 % (0.2-2.0); Hemoglobin 13.2 g/dL (14.0-18.0); Immature Granulocytes Abs Auto 0.11 10^3/uL (0.00-0.03); Immature Granulocytes Pct Auto 0.7 % (0.0-0.5); Lymphocytes Absolute Auto 0.8 10^3/uL (1.2-3.8); Lymphocytes Percent Auto 5.7 % (20.5-60.0); Mean Corpuscular Hemoglobin 29.1 pg (25.9-34.0); Mean Corpuscular Volume 88.1 fL (80.0-94.0); Mean Platelet Volume 11.1 fL (9.5-13.5); Monocytes Absolute Auto 1.4 10^3/uL (0.3-0.8); Monocytes Percent Auto 9.4 % (1.7-12.0); Neutrophils Absolute Auto 12.5 10^3/uL (1.4-6.5); Neutrophils Percent Auto 84.1 % (43.0-75.0); Platelet Count 201 10^3/uL (150-450); Red Blood Count 4.54 10^6/uL (4.70-6.10); Red Cell Distribution Width 13.8 % (11.0-15.0); White Blood Count 14.8 10^3/uL (4.0-11.0)
[2024-09-18 05:55] LABS: Alanine Aminotransferase 17 U/L (16-63); Albumin Globulin Ratio 0.7; Albumin Level 2.7 g/dL (3.4-5.0); Alkaline Phosphatase 80 U/L (46-116); Anion Gap 11.7; Aspartate Amino Transferase 19 U/L (15-37); BUN Creatinine Ratio 16.7; Bilirubin Total 0.6 mg/dL (0.2-1.0); Calcium 8.2 mg/dL (8.5-10.1); Carbon Dioxide 24.4 mmol/L (21.0-32.0); Chloride 99 mmol/L (98-107); Estimated GFR (African America >60 (>=60 mL/min/1.73m^2); Estimated GFR (Non-African Ame >60 (>=60 mL/min/1.73m^2); Globulin 3.8 g/dL; Glucose 143 mg/dL (74-106); Potassium 4.1 mmol/L (3.5-5.1); Sodium 131 mmol/L (136-145); Total Protein 6.5 g/dL (6.4-8.2)
--- NOTE | 2024-09-18 09:04 | P.DS_ITS ---
DS: Providers Provider Primary care physician: Non-Staff PhysicianMD Admitting clinician: Shaikh Mukesh Attending physician on admission: Shaikh Mukesh Consults: 09/17/24 09:35 Physical Therapy Eval and Treat Routine Reason for consultation: gait training Has provider been notified: No 09/17/24 15:02 Occupational Therapy Eval and Treat Routine Reason for consultation: Ambulatory dysfunction/weakness Physical Therapy Eval and Treat Routine Reason for consultation: Ambulatory dysfunction/weakness Attending physician on discharge: Shaikh Mukesh Discharging clinician: Shaikh Mukesh Anticipated date of discharge: 09/18/24 DS: Diagnosis Discharge Diagnosis (1) Left ankle pain: Qualifiers: Chronicity: chronic Qualified Code(s): M25.572 - Pain in left ankle and joints of left foot; G89.29 - Other chronic pain (2) Pseudarthrosis after fusion or arthrodesis: (3) Pain due to internal orthopedic prosthetic device: Qualifiers: Encounter type: subsequent encounter Qualified Code(s): T84.84XD - Pain due to internal orthopedic prosthetic devices, implants and grafts, subsequent encounter (4) RLS (restless legs syndrome): (5) Alcohol use disorder: DS: Summary Hospital Course Hospital Course: 69-year-old male with chronic back pain and alcohol use disorder who had previously undergone atleast 3 left foot/ankle surgeries with the last being ankle and subtalar joint fusion performed in 2021 was struggling with daily pain with limited his daily activities. 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 POD #2, he is doing well. Worked well with PT. Pain is well controlled. Discussed with Podiatry. Dr Alves office will schedule an outpatient twila with him. He is medically stable for discharge Status at Discharge Overall status at discharge: patient is progressing back to baseline Time Spent with Patient Time attestation: Total time spent providing and/or coordinating discharge services: Time spent: greater than 30 minutes Exam Constitutional Vital Signs, click to edit/add: Last Vital Signs Temp 98.1 F 09/18/24 07:30 Pulse 95 H 09/18/24 08:00 Resp 16 09/18/24 07:30 BP 111/67 09/18/24 07:30 Pulse Ox 94 L 09/18/24 03:16 O2 Del Method Room Air 09/18/24 07:30 O2 Flow Rate 2 09/17/24 14:16 Documenting provider has reviewed patient's vital signs: yes Common normals: no apparent distress and oriented x3 General appearance: cooperative Respiratory Common normals: normal respiratory effort and clear to auscultation bilaterally Effort & inspection: able to speak in complete sentences Auscultation: clear to auscultation bilaterally Cardio Common normals: S1 normal heart sound and S2 normal heart sound Rate: tachycardic Heart sounds: S1 normal and S2 normal GI Common normals: Normal to inspection, nondistended, normoactive bowel sounds present, soft to palpation, non-tender and no hepatosplenomegaly Palpation: soft and no hepatosplenomegaly Neuro Common normals: oriented x3, moves all extremities and no focal motor deficits Psych Common normals: mental status grossly normal, denies hallucinations, denies homicidal ideation and denies suicidal ideation DS: Data Data Completed and Pending Labs on day of discharge: Labs from last 24 hours 09/18/24 09/17/24 04:45 13:26 WBC 14.8 H RBC 4.54 L Hgb 13.2 L Hct 40.0 L MCV 88.1 MCH 29.1 MCHC 33.0 RDW 13.8 Plt Count 201 MPV 11.1 Neut % (Auto) 84.1 H Lymph % (Auto) 5.7 L [place] % (Auto) 9.4 Eos % (Auto) 0.0 L Baso % (Auto) 0.1 L Neut # (Auto) 12.5 H Lymph # (Auto) 0.8 L [place] # (Auto) 1.4 H Eos # (Auto) 0.0 Baso # (Auto) 0.0 Abs Immat Gran (auto) 0.11 H Imm/Tot Granulo (auto) 0.7 H Sodium 131 L Potassium 4.1 Chloride 99 Carbon Dioxide 24.4 Anion Gap 11.7 BUN 15.0 Creatinine 0.90 Est GFR ( Amer) >60 Est GFR (Non-Af Amer) >60 BUN/Creatinine Ratio 16.7 Glucose 143 H Calcium 8.2 L Total Bilirubin 0.6 AST 19 ALT 17 Alkaline Phosphatase 80 Total Protein 6.5 Albumin 2.7 L Globulin 3.8 Albumin/Globulin Ratio 0.7 POC Glucose 116 H Discharge Plan Discharge Disposition: Home, Self-Care Condition: Good Discharge Medications: Continued gabapentin 300 mg capsule 300 mg PO DAILY ropinirole 4 mg tablet 4 mg PO BID sildenafil 50 mg tablet 50 mg PO DAILY PRN (Reason: sexual activity) Rx Instructions: administer 30 minutes to 4 hours before activity trazodone 100 mg tablet 100 mg PO DAILY oxycodone-acetaminophen [Percocet] 5-325 mg tablet 1 tab PO Q6H Discontinued buprenorphine HCl [Belbuca] 75 mcg film 75 mcg buccal Q12H tramadol 50 mg tablet 50 mg PO Q4H Diet: advance to your usual diet Print Language: [place]
--- NOTE | 2024-09-18 09:32 | CM.NOTE ---
Rounds made with Dr. Mayorga. Plan for discharge today. Mr. Zhang verbalizes understanding.
[2024-09-18] MEDS: ROPINIROLE HCL 1 MG TABLET 4 MG PO (09:45)
[2024-09-18] MEDS: GABAPENTIN 300 MG CAPSULE PO (09:45)
--- OUTSIDE RECORDS SUMMARY | 2024-09-19 07:47 | XMS_ITS | CCD ---
Author Organization [facility] Care Team Providers Care Cco & President Name Role Phone MAIRA YOUSIF Unavailable Unavailable MAIRA YOUSIF Unavailable Unavailable Blayne Rodriguez Primary Care Provider [phone] Blayne Rodriguez Primary Care Provider [phone] Blayne Rodriguez Primary Care Provider Blayne Rodriguez Primary Care Provider Unavailable Primary Care Provider Unavailabl e Unavailable Primary Care Provider Unavailabl e SOL CORRIGAN Referring Unavailable WEINBERG, RELIGIOUS R Attending Unavailable [facility] Primary Care Unavailable [facility] Primary Care Unavailable WEINBERG, RELIGIOUS R Admitting Unavailable WEINBERG, RELIGIOUS R Attending Unavailable [facility] Referring Unavailable WEINBERG, RELIGIOUS R Attending Unavailable WEINBERG, RELIGIOUS R Referring Unavailable [facility] Primary Care Unavailable [facility] Primary Care Unavailable WEINBERG, RELIGIOUS R Attending Unavailable [facility] Referring Unavailable [facility] Primary Care Unavailable WEINBERG, RELIGIOUS R Referring Unavailable WEINBERG, RELIGIOUS R Attending Unavailable WEINBERG, RELIGIOUS R Referring Unavailable WEINBERG, RELIGIOUS R Attending Unavailable [facility] Primary Care Unavailable DUANE BRAGA [...] Unavailable Unavailable Primary Care Provider Unavailabl e [facility], Other Primary Care P rovider Zenaida Street MD Unavailable Kelly TEENAGE PROGRAM DIRECTOR-EXTRUSION DIE REPAIRER, Barbie Ordaz Unavailable [facility], Other Primary Care P rovider Unavailable Primary Care Provider Unavailabl e [facility], Other Primary Care P rovider Sandee [...] Medina MD, Sandrine Cedeño Consulting Unavail able [facility], Other Primary Care P rovider ABBEY [...] Attending Unavailable SELF, SELF Referring Unavailable [facility] Primary Care Unavailable CRISTOPHER MOREIRA T Attending Unavailable SELF, SELF Referring Unavailable [facility] Primary Care Unavailable CRISTOPHER MOREIRA Attending Unavailable [facility] Primary Care Unavailable CRISTOPHER MOREIRA Attending Unavailable SELF, SELF Referring Unavailable [facility] Primary Care Unavailable SELF, SELF Referring Unavailable MAJO NELSON Attending Unavailable [facility] Primary Care Unavailable ERI, CRISTOPHER T Referring Unavailable ERI, CRISTOPHER T Attending Unavailable ERI, CRISTOPHER T Referring Unavailable ERI, CRISTOPHER T Attending Unavailable [facility] Primary Care Unavailable ERI, CRISTOPHER T Referring Unavailable ERI, CRISTOPHER T Attending Unavailable [facility] Primary Care Unavailable ERI, CRISTOPHER T Referring Unavailable [facility] Primary Care Unavailable ERI, CRISTOPHER T Attending Unavailable [facility] Primary Care Unavailable MAJO NELSON Attending Unavailable MAJO NELSON Referring Unavailable Allergies Allergy Classification Reported Allergen(s) Allergy Type Date of Onset Reaction(s) Facility (1 source) No Known Medication Allergies; Translations: [No Known Medication Allergies] Propensity to adverse reactions to drug (disorder) [facility] Repository Medications Current Medications Medication Drug Class(es) [...] mg/ml oral solution (1 source) Phenothiazine, Uncompetitive X-niiynx-Q-aspartate Receptor Antagonist, Sigma-1 Agonist Start: 09-30-2019 End: [...] Active docusate sodium 50 mg / sennosides, halfway 8.6 mg oral tablet (1 source) Start: [...] CBC w/diff every Monday and fax to [phone], attention Dr. Zenaida Street or BETHEL Mendoza 1 Each 0 01/02/2023 02/22/2023 Discontinued (Medication Reconciliation (suppress cancel msg)) Start: 01-02-2023 CUSTOM MEDICAT ION Please have the Home Care Company or Extended Care Facility obtain weekly Chem-6 (Including serum creatinine) without Glucose and CBC w/diff every Monday and fax to [phone], attention Dr. Zenaida Street or BETHEL Mendoza [...] at 0900, Until Discontinued Start: 06-24-2022 lisinopril (TX INIVIL;ZESTRIL) tablet 10 mg Start: 10-13-2020 take 10 mg by mouth once daily 10 mg, Oral, NIGHTLY, First dose on Mon10/13/20 at 2100 Start: 06-28-2018 lisinopril (TX INIVIL;ZESTRIL) 10 MG tablet nightly 0 06/28/2018 [...] flush 0.9% 8.5 mL polyethylene glycol 3350 49278 mg powder for oral solution (1 source) [...] Mon10/13/20 at [address] [facility] once daily as needed for sleep traZODone [...] Sean Smith MD 08/16/[address] [facility] CT Ankle - left WO contrasto n 08-16-2024 Tibiotalar joint 50-75% bony fusion. Subtalar joint 0% bony fusion. [facility] RIS CONSOLIDATED EXAMINATION: CT OF THE [...] bony fusion. Subtalar joint 0% bony fusion. [facility] Ankle - left WO contrastO rdered By: Sean Smith on 08-16-2024 [facility] Work Phone: CT Ankle - left WO contrasto n 08-15-2024 Radiology Study observation (narrative) [facility] [employer] XR ANKLE LEFT 3+ VIEWSon 08- 08-2024 [...] intramedullary nail and surrounding the calcaneal screw. [facility] XR Ankle - left 3 Viewson [...] intramedullary nail and surrounding the calcaneal screw. [facility] Radiology Study observation (narrative) [facility] XR Ankle - left 3 ViewsOrder ed By: Erick Rogers on 06-20-2024 [facility] Work Phone: .eGFRon 04-24-2024 GFR/1.73 sq M.predicted MDRD (S/P/Bld) [Vol rate/Area] mL/min/{1.73_m2} Normal >=60 [facility] Comment on above: Result Comment: [facility] Laboratories have implemented the eGFR calculation approach [...] years Performed By: #### E GFR #### [address] [address] Basic Metabolic Profileon Anion gap [Moles/Vol] 9 mmol/L Normal 4-12 [facility] Comment on above: Performed By: #### C [id number] #### [address] [address] Calcium [Mass/Vol] 8.1 mg/dL Low 8.5-10.3 [facility] Comment on above: Performed By: #### C [id number] #### [address] [address] Chloride [Moles/Vol] 95 mmol/L Low 98-110 [facility] Comment on above: Performed By: #### C [id number] #### [address] [address] CO2 [Moles/Vol] 23 mmol/L Normal 22-32 [facility] Comment on above: Performed By: #### C [id number] #### [address] [address] Creatinine [Mass/Vol] 1.03 mg/dL Normal 0.61-1.24 [facility] Comment on above: Performed By: #### C [id number] #### [address] [address] Glucose [Mass/Vol] 91 mg/dL Normal 70-99 [facility] Comment on above: Performed By: #### C [id number] #### [address] [address] Potassium [Moles/Vol] 3.5 mmol/L Normal 3.4-4.8 [facility] Comment on above: Performed By: #### C [id number] #### [address] [address] Sodium [Moles/Vol] 127 mmol/L Low 133-142 [facility] Comment on above: Performed By: #### C [id number] #### [address] [address] Urea nitrogen [Mass/Vol] 17 mg/dL Normal 8-26 [facility] Comment on above: Performed By: #### C [id number] #### [address] [address] Urea nitrogen/Creatinine [Mass ratio] 16.5 mg/mg Normal 10.0-20.0 [facility] Comment on above: Performed By: #### C [id number] #### [address] [address] CBCon 04-24-2024 Erythrocyte distribution width (RBC) [Ratio] 13.4 % Normal 11.6-14.8 [facility] Comment on above: Performed By: #### C BCI #### [address] [address] Hematocrit (Bld) [Volume fraction] 46.2 % Normal 41.0-53.0 [facility] Comment on above: Performed By: #### C BCI #### [address] [address] Hemoglobin (Bld) [Mass/Vol] 15.4 g/dL Normal 13.5-17.5 [facility] Comment on above: Performed By: #### C BCI #### [address] [address] MCH (RBC) [Entitic mass] 30.4 pg Normal 27.0-35.0 [facility] Comment on above: Performed By: #### C BCI #### [address] [address] MCHC 33.5 % Normal 31.0-37.0 [facility] Comment on above: Performed By: #### C BCI #### [address] [address] MCV (RBC) [Entitic vol] 90.9 fL Normal 80.0-100.0 B [facility] Comment on above: Performed By: #### C BCI #### [place] [id number] Platelet 189 x10*3/mcL Normal 150-450 [facility] Comment on above: Performed By: #### C BCI #### [place] [id number] Platelet mean volume (Bld) [Entitic vol] 9.6 fL Normal 6.7-10.6 [facility] Comment on above: Performed By: #### C BCI #### [place] [id number] RBC 5.08 x10*6/mcL Normal 4.30-5.80 [facility] Comment on above: Performed By: #### C BCI #### [place] [id number] WBC 8.5 x10*3/mcL Normal 4.5-11.0 [facility] Comment on above: Performed By: #### C BCI #### [address] [address] Inpatient Clinical Summary 04-24-2024 Inpatient Clinical Summary [address] [address] [place] [address] Clinical Summary Person Information Name: Preston Carrasquillo Age: 68 Years : 1955 Sex: Male PCP: Sandee HANSON, Alex Barnard Marital Status: Phone: PCP: Race: White Ethnicity: Not or Language: Colombian Visit Id: Visit Reason: L4 Compression Fracture, Fall Speciality: Acuity: Enc Type: Observation Med Service: Medicine-General Arrival: 04/23/2024 03:10:40 Discharge: Dispo Type: Address: [address] [place] [id number] Diagnosis: 1:Fall down stairs; Back pain; Pain; [...] range between ( 27.2 and 40.8 ) [place] Auto: 9.2 % -- Normal range between ( 4.7 and 13.9 ) Eos Auto: 0.4 % -- Normal range between ( 0.0 and 6.1 ) Basophil Auto: 0.2 % -- Normal range between ( 0.0 and 1.2 ) Baso Absolute: 0.0 x10 Lymph Absolute: 0.9 x10 [place] Absolute: 0.8 x10 Neutro Absolute: 6.6 x10 [...] Diet: Feeding (more content not included)... Normal [facility] Magnesiumon 04-24-2024 Magnesium [Mass/Vol] 2.1 mg/dL Normal 1.7-2.4 [facility] Comment on above: Performed By: #### M G #### [place] [address] .UA Microscp Aon 04-23-2024 UA Mucus Present Normal Absent [facility] Comment on above: Performed By: #### M G #### [place] [id number] UA RBC Quant 1 /HPF Normal 0-5 [facility] Comment on above: Performed By: #### M G #### [place] [id number] UA Sperm Present Abnormal Absent [facility] Comment on above: Performed By: #### M G #### [place] [id number] UA WBC Quant 4 /HPF Normal 0-5 [facility] Comment on above: Performed By: #### M G #### [address] [address] .eGFRon 04-23-2024 GFR/1.73 sq M.predicted MDRD (S/P/Bld) [Vol rate/Area] mL/min/{1.73_m2} Normal >=60 [facility] Comment on above: Result Comment: [facility] Laboratories have implemented the eGFR calculation approach [...] years Performed By: #### M G #### [address] [address] CBC w/ Diffon 04-23-2024 Erythrocyte distribution width (RBC) [Ratio] 13.1 % Normal 11.6-14.8 [facility] Comment on above: Performed By: #### C BC #### [address] [address] Hematocrit (Bld) [Volume fraction] 43.7 % Normal 41.0-53.0 [facility] Comment on above: Performed By: #### C BC #### [address] [address] Hemoglobin (Bld) [Mass/Vol] 14.5 g/dL Normal 13.5-17.5 [facility] Comment on above: Performed By: #### C BC #### [address] [address] MCH (RBC) [Entitic mass] 30.3 pg Normal 27.0-35.0 [facility] Comment on above: Performed By: #### C BC #### [address] [address] MCHC 33.3 % Normal 31.0-37.0 [facility] Comment on above: Performed By: #### C BC #### [address] [address] MCV (RBC) [Entitic vol] 91.1 fL Normal 80.0-100.0 B [facility] Comment on above: Performed By: #### C BC #### [address] [address] Platelet 192 x10*3/mcL Normal 150-450 [facility] Comment on above: Performed By: #### C BC #### [address] [address] Platelet mean volume (Bld) [Entitic vol] 8.7 fL Normal 6.7-10.6 [facility] Comment on above: Performed By: #### C BC #### [address] [address] RBC 4.80 x10*6/mcL Normal 4.30-5.80 [facility] Comment on above: Performed By: #### C BC #### [address] [address] WBC 8.4 x10*3/mcL Normal 4.5-11.0 [facility] Comment on above: Performed By: #### C BC #### [address] [address] CMPon 04-23-2024 Albumin [Mass/Vol] 3.6 g/dL Normal 3.2-4.9 [facility] Comment on above: Performed By: #### C OMP #### [address] [place] [address] Albumin/Globulin [Mass ratio] 0.9 {ratio} Low 1.1-2.2 [facility] Comment on above: Performed By: #### C OMP #### [address] [address] Alk Phos 91 IU/L Normal 32-91 [facility] Comment on above: Performed By: #### C OMP #### [address] [address] ALT [Catalytic activity/Vol] 23 U/L Normal 17-63 [facility] Comment on above: Performed By: #### C OMP #### [address] [address] Anion gap [Moles/Vol] 6 mmol/L Normal 4-12 [facility] Comment on above: Performed By: #### C OMP #### [address] [address] AST [Catalytic activity/Vol] 32 U/L Normal 15-41 [facility] Comment on above: Performed By: #### C OMP #### [address] [address] Bili Total 1.4 mg/dL High 0.3-1.2 [facility] Comment on above: Performed By: #### C OMP #### [address] [address] Calcium [Mass/Vol] 8.1 mg/dL Low 8.5-10.3 [facility] Comment on above: Performed By: #### C OMP #### [address] [address] Chloride [Moles/Vol] 99 mmol/L Normal 98-110 [facility] Comment on above: Performed By: #### C OMP #### [address] [address] CO2 [Moles/Vol] 26 mmol/L Normal 22-32 [facility] Comment on above: Performed By: #### C OMP #### [address] [address] Creatinine [Mass/Vol] 0.98 mg/dL Normal 0.61-1.24 [facility] Comment on above: Performed By: #### C OMP #### [address] [address] Glucose [Mass/Vol] 101 mg/dL High 70-99 [facility] Comment on above: Performed By: #### C OMP #### [address] [address] Potassium [Moles/Vol] 3.8 mmol/L Normal 3.4-4.8 [facility] Comment on above: Performed By: #### C OMP #### [address] [address] Protein [Mass/Vol] 7.5 g/dL Normal 6.5-8.1 [facility] Comment on above: Performed By: #### C OMP #### [address] [address] Sodium [Moles/Vol] 131 mmol/L Low 133-142 [facility] Comment on above: Performed By: #### C OMP #### [address] [address] Urea nitrogen [Mass/Vol] 18 mg/dL Normal 8-26 [facility] Comment on above: Performed By: #### C OMP #### [address] [address] Urea nitrogen/Creatinine [Mass ratio] 18.4 mg/mg Normal 10.0-20.0 [facility] Comment on above: Performed By: #### C OMP #### [address] [address] Diff Autoon 04-23-2024 Baso Absolute 0.0 x10*3/mcL Normal 0.0-0.2 [facility] Comment on above: Performed By: #### M G #### [address] [address] Basophils/100 WBC (Bld) 0.2 % Normal 0.0-1.[address] [facility] Comment on above: Performed By: #### M G #### [address] [address] Eos Absolute 0.0 x10*3/mcL Normal 0.0-0.4 [facility] Comment on above: Performed By: #### M G #### [address] [address] Eosinophils/100 WBC (Bld) 0.4 % Normal 0.0-6.1 [facility] Comment on above: Performed By: #### M G #### [address] [address] Lymph Absolute 0.9 x10*3/mcL Low 1.0-4.8 [facility] Comment on above: Performed By: #### M G #### [address] [address] Lymphocytes/100 WBC (Bld) 11.0 % Low 27.2-40.8 [facility] Comment on above: Performed By: #### M G #### [address] [address] [place] Absolute 0.8 x10*3/mcL Normal 0.3-1.1 [facility] Comment on above: Performed By: #### M G #### [address] [address] Monocytes/100 WBC (Bld) 9.2 % Normal 4.7-13.[address] [facility] Comment on above: Performed By: #### M G #### [address] [address] Neutro Absolute 6.6 x10*3/mcL Normal 1.8-7.7 [facility] Comment on above: Performed By: #### M G #### [address] [address] Neutro Auto 79.2 % High 47.2-70.8 [facility] Comment on above: Performed By: #### M G #### [address] [address] Magnesiumon 04-23-2024 Magnesium [Mass/Vol] 2.3 mg/dL Normal 1.7-2.4 [facility] Comment on above: Performed By: #### M G #### [address] [address] Rehab Services Progress Note on 04-23-2024 Rehab Services Progress Note Pt scheduled for kyphoplasty later this date. Hold therapy evals until tomorrow 04/24 as appropriate. Electronically signed by Dorys Peres 04/23/24 10:08 EDT Normal [facility] UA w Culture if Indon 2023 Color (U) Yellow Normal Yellow [facility] Comment on above: Performed By: #### M G #### [address] [address] Ketones Ql (U) Negative Normal Negative [facility] Comment on above: Performed By: #### M G #### [address] [address] UA Blood Negative Normal Negative [facility] Comment on above: Performed By: #### M G #### [address] [address] UA Clarity Clear Normal Clear [facility] Comment on above: Performed By: #### M G #### [address] [address] UA Glucose Normal Normal Negative [facility] Comment on above: Performed By: #### M G #### [address] [address] UA Leukocyte Esterase 25 Abnormal Negative [facility] Comment on above: Performed By: #### M G #### [address] [address] UA Nitrite 1+ Abnormal Negative [facility] Comment on above: Performed By: #### M G #### [address] [address] UA pH 6.0 Normal 4.5 - 7.8 [facility] Comment on above: Performed By: #### M G #### [address] [address] UA Protein 10 mg/dL Normal Negative [facility] Comment on above: Performed By: #### M G #### [address] [address] UA Source Clean Catch Normal [facility] Comment on above: Performed By: #### M G #### [address] [address] UA Spec Grav 1.024 Normal 1.003-1.035 [facility] Comment on above: Performed By: #### M G #### [address] [address] UA Urobilinogen Normal Normal 0.2 - 1.0 [facility] Comment on above: Performed By: #### M G #### [address] [address] Urobilinogen (U) [Mass/Vol] Negative Normal Negative [facility] Comment on above: Performed By: #### M G #### [address] [address] Basic Metabolic Profon 04-22 Anion gap [Moles/Vol] 10 mmol/L Normal 9-17 [facility] Comment on above: Performed By: #### C ABDELRAHMAN, BMP #### [facility] [address] [place] [address] Belt Worker: Jerson Davis MD BUN/CRE Ratio 23 High 9-20 [facility] Comment on above: Performed By: #### C DP, BMP #### [facility] [address] [place] [address] Belt Worker: Jerson Davis MD Calcium [Mass/Vol] 8.4 mg/dL Low 8.6-10.4 [facility] Comment on above: Performed By: #### C DP, BMP #### [facility] [address] [place], [place] [id number] Belt Worker: Jerson Davis MD Chloride [Moles/Vol] 97 mmol/L Low 98-107 [facility] Comment on above: Performed By: #### C DP, BMP #### [facility] [address] [place], [place] [id number] Belt Worker: Jerson Davis MD CO2 [Moles/Vol] 25 mmol/L Normal 20-31 [facility] Comment on above: Performed By: #### C DP, BMP #### [facility] [address] [place], [place] [id number] Belt Worker: Jerson Davis MD Creatinine [Mass/Vol] 0.7 mg/dL Normal 0.7-1.2 [facility] Comment on above: Performed By: #### C DP, BMP #### [facility] [address] [place] [address] Belt Worker: Jerson Davis MD GFR/1.73 sq M.predicted among non-blacks MDRD (S/P/Bld) [Vol rate/Area] mL/min/{1.73_m2} Normal >60 [facility] Comment on above: Result Comment: These [...] Performed By: #### C DP, BMP #### [facility] [address] [place], [place] [id number] Belt Worker: Jerson Davis MD Glucose [Mass/Vol] 95 mg/dL Normal 70-99 [facility] Comment on above: Performed By: #### C DP, BMP #### [facility] [address] [place], [place] [id number] Belt Worker: Jerson Davis MD Potassium [Moles/Vol] 4.1 mmol/L Normal 3.7-5.3 [facility] Comment on above: Performed By: #### C DP, BMP #### [address] [place], [place] [id number] Belt Worker: Jerson Davis MD Sodium [Moles/Vol] 132 mmol/L Low 135-144 [facility] Comment on above: Performed By: #### C DP, BMP #### [address] [place], [place] [id number] Belt Worker: Jerson Davis MD Urea nitrogen [Mass/Vol] 16 mg/dL Normal 8-23 [facility] Comment on above: Performed By: #### C DP, BMP #### [address] [place], [place] [id number] Belt Worker: Jerson Davis MD CBC with Diffon 04-22-2024 Abs. Basophil 0.03 k/uL Normal 0.00-0.20 [facility] Comment on above: Performed By: #### C DP, BMP #### [facility] [address] [place], [place] [id number] Belt Worker: Jerson Davis MD Abs.Imm.Granulocyte 0.13 k/uL Normal 0.00-0.30 [facility] Comment on above: Performed By: #### C DP, BMP #### [facility] [address] [place], [place] [phone] Belt Worker: Jerson Davis MD Abs.Neutrophil (Seg) 6.93 k/uL Normal 1.50-8.10 [facility] Comment on above: Performed By: #### C DP, BMP #### [address] [place], [place] [address] Belt Worker: Jerson Davis MD Basophils/100 WBC (Bld) 0 % Normal 0-2 [facility] Comment on above: Performed By: #### C DP, BMP #### [address] [place], [place] [address] Belt Worker: Jerson Davis MD Eosinophils (Bld) [#/Vol] 0.03 10*3/uL Normal 0.00-0.[address] [facility] Comment on above: Performed By: #### C DP, BMP #### [address] [place] [address] Belt Worker: Jerson Davis MD Eosinophils/100 WBC (Bld) 0 % Low 1-4 [facility] Comment on above: Performed By: #### C DP, BMP #### [address] [place] [id number] Belt Worker: Jerson Davis MD Erythrocyte distribution width (RBC) [Ratio] 12.4 % Normal 11.8-14.4 [facility] Comment on above: Performed By: #### C DP, BMP #### [address] [place] Belt Worker: Jerson Davis MD Hematocrit (Bld) [Volume fraction] 47.7 % Normal 40.7-50.3 [facility] Comment on above: Performed By: #### C DP, BMP #### [address] [place] [id number] Belt Worker: Jerson Davis MD Hemoglobin (Bld) [Mass/Vol] 16.2 g/dL Normal 13.0-17.0 [facility] Comment on above: Performed By: #### C DP, BMP #### [facility] [address] [place] [address] Belt Worker: Jerson Davis MD Immature granulocytes/100 WBC (Bld) 1 % High 0 [facility] Comment on above: Performed By: #### C DP, BMP #### [facility] [address] [place] [address] Belt Worker: Jerson Davis MD Lymphocytes (Bld) [#/Vol] 1.12 10*3/uL Normal 1.10-3.[address] [facility] Comment on above: Performed By: #### C DP, BMP #### [address] [place], [place] [phone] Belt Worker: Jreson Davis MD Lymphocytes/100 WBC (Bld) 12 % Low 24-43 [facility] Comment on above: Performed By: #### C DP, BMP #### [address] [place], [place] [phone] Belt Worker: Jerson Davis MD MCH (RBC) [Entitic mass] 30.0 pg Normal 25.2-33.5 [facility] Comment on above: Performed By: #### C DP, BMP #### [address] [place] [address] Belt Worker: Jerson Davis MD MCHC (RBC) [Mass/Vol] 34.0 g/dL Normal 28.4-34.8 [facility] Comment on above: Performed By: #### C DP, BMP #### [address] [place] [address] Belt Worker: Jerson Davis MD MCV (RBC) [Entitic vol] 88.3 fL Normal 82.6-102.9 M [facility] Comment on above: Performed By: #### C DP, BMP #### [address] [place], [facility] Belt Worker: Jerson Davis MD Monocytes (Bld) [#/Vol] 0.82 10*3/uL Normal 0.10-1.20 [facility] Comment on above: Performed By: #### C DP, BMP #### [facility] [address] [place], [place] [id number] Belt Worker: Jerson Davis MD Monocytes/100 WBC (Bld) 9 % Normal 3-12 M [facility] Comment on above: Performed By: #### C DP, BMP #### [facility] [address] [place], [place] [address] Belt Worker: Jerson Davis MD Neutrophil (Seg) 78 % High 36-65 [facility] Comment on above: Performed By: #### C DP, BMP #### [facility] [address] [place] [address] Dr. [place], [facility] Belt Worker: Jerson Davis MD NRBC Automated 0.0 per [address] [facility] Comment on above: Performed By: #### C DP, BMP #### [address] [place], [facility] Belt Worker: Jerson Davis MD Platelet mean volume (Bld) [Entitic vol] 10.8 fL Normal 8.1-13.5 [facility] Comment on above: Performed By: #### C DP, BMP #### [address] [place], [place] [id number] Belt Worker: Jerson Davis MD Platelets (Bld) [#/Vol] 204 10*3/uL Normal 138-453 [facility] Comment on above: Performed By: #### C DP, BMP #### [facility] [address] [place], [place] [id number] Belt Worker: Jerson Davis MD RBC (Bld) [#/Vol] 5.40 10*6/uL Normal 4.21-5.77 [facility] Comment on above: Performed By: #### C DP, BMP #### [facility] [address] [place] [address] Belt Worker: Jerson Davis MD WBC (Bld) [#/Vol] 9.1 10*3/uL Normal 3.5-11.3 [facility] Comment on above: Performed By: #### C DP, BMP #### [facility] [address] [place], [place] [id number] Belt Worker: Jerson Davis MD CT LUMBAR SPINE WO [...] Singh Ledbetter MD 04/22/[address] [facility] Urinalysis, Routineon 2023 Bilirubin, SemiQt,Ur Negative Normal NEG [facility] Comment on above: Performed By: #### U A #### [address] [place] [address] Belt Worker: Jerson Davis MD Blood, Urine Negative Normal NEG [facility] Comment on above: Performed By: #### U A #### [address] [place] [address] Belt Worker: Jerson Davis MD Clarity (U) Clear Normal CLEAR [facility] Comment on above: Performed By: #### U A #### [address] [place] [address] Belt Worker: Jerson Davis MD Color (U) Yellow Normal YEL [facility] Comment on above: Performed By: #### U A #### [facility] [address] [place] [address] Dr. [place], [facility] Belt Worker: Jerson Davis MD Glucose Ql (U) Negative Normal NEG [facility] Comment on above: Performed By: #### U A #### [address] [place] [address] Belt Worker: Jerson Davis MD Ketones Ql (U) Negative Normal NEG [facility] Comment on above: Performed By: #### U A #### [facility] [address] [place] [address] Dr[address] [place], [place] [id number] Belt Worker: Jerson Davis MD Leukocyte esterase Test strip Ql (U) Negative Normal NEG [facility] Comment on above: Performed By: #### U A #### [facility] [address] [place] [address] [place] [address] Belt Worker: Jerson Davsi MD Nitrite,Ur Negative Normal NEG [facility] Comment on above: Performed By: #### U A #### [facility] [address] [place] [address] [place] [address] Belt Worker: Jerson Davis MD PH,Ur 6.0 Normal 5.0-9.0 [facility] Comment on above: Performed By: #### U A #### [facility] [address] [place] [address] Dr[address] [place], [place] [id number] Belt Worker: Jerson Davis MD Protein Ql (U) Negative Normal NEG [facility] Comment on above: Performed By: #### U A #### [facility] [address] [place] [address] [place] [address] Belt Worker: Jerson Davis MD Spec. [place],Ur 1.015 Normal 1.010-1.020 [facility] Comment on above: Performed By: #### U A #### [facility] [address] [place] [address] Dr[address] [place], [place] [id number] Belt Worker: Jerson Davis MD Urobilinogen,Ur Normal Normal 0.0-1.0 [facility] Comment on above: Performed By: #### U A #### [facility] [address] [place] [address] [place] [address] Belt Worker: Jerson Davis MD No Panel Informationon 01-17 EXAM: XR ANKLE LEFT 3+ VIEWS, XR FOOT LEFT 3+ VIEWS, 01/18/2024 11:45 AM (accession [id number]), 01/18/2024 11:46 AM (accession [id number]) COMPARISON: Left ankle radiographs September 14, 2023. Left foot radiographs February 13, 2023. CLINICAL INDICATIONS: left ankle pain RELEVANT CLINICAL HISTORY: Z98.1:S/P ankle arthrodesis (accession [id number]), M79.672:Chronic pain in left foot G89.29:Chronic pain in left foot (accession [id number]) FINDINGS: 4 weight-bearing images obtained of the [...] LEFT 3+ VIEWS, 01/18/2024 11:45 AM (accession [id number]), 01/18/2024 11:46 AM (accession [id number]) COMPARISON: Left ankle radiographs September 14, 2023. Left foot radiographs February 13, 2023. CLINICAL INDICATIONS: left ankle pain RELEVANT CLINICAL HISTORY: Z98.1:S/P ankle arthrodesis (accession [id number]), M79.672:Chronic pain in left foot G89.29:Chronic pain in left foot (accession [id number]) FINDINGS: 4 weight-bearing images obtained of the [...] of hardware loosening. No acute osseous abnormality. [facility] No Panel InformationOrdered By: Kalin Elizabeth on 01-18-2024 [facility] Work Phone: XR ANKLE LEFT 3+ VIEWSon XR ANKLE LEFT 3+ VIEWS EXAM: XR ANKLE LE FT 3+ VIEWS, XR FOOT LEFT 3+ VIEWS, 01/18/2024 11:45 AM (accession [id number]), 01/18/2024 11:46 AM (accession [id number]) COMPARISON: Left ankle radiographs September 14, 2023. Left foot radiographs February 13, 2023. CLINICAL INDICATIONS: left ankle pain RELEVANT CLINICAL HISTORY: Z98.1:S/P ankle arthrodesis (accession [id number]), M79.672:Chronic pain in left foot G89.29:Chronic pain in left foot (accession [id number]) FINDINGS: 4 weight-bearing images obtained of the [...] hardware loosening. No acute osseous abnormality. Normal [facility] XR Ankle - left 3 [facility] Radiology Study observation (narrative) [facility] XR FOOT LEFT 3+ VIEWSon XR FOOT LEFT 3+ VIEWS EXAM: XR ANKLE LEF T 3+ VIEWS, XR FOOT LEFT 3+ VIEWS, 01/18/2024 11:45 AM (accession [id number]), 01/18/2024 11:46 AM (accession [id number]) COMPARISON: Left ankle radiographs September 14, 2023. Left foot radiographs February 13, 2023. CLINICAL INDICATIONS: left ankle pain RELEVANT CLINICAL HISTORY: Z98.1:S/P ankle arthrodesis (accession [id number]), M79.672:Chronic pain in left foot G89.29:Chronic pain in left foot (accession [id number]) FINDINGS: 4 weight-bearing images obtained of the [...] hardware loosening. No acute osseous abnormality. Normal [facility] XR Foot - left 3 [facility] Radiology Study observation (narrative) [facility] FLUORO FOR SURGICAL PROCEDUR ESon 09-29-2023 FLUORO FOR SURGICAL PROCEDURES Radiology exam is complete. No Radiologist dictation. Please follow up with ordering provider. Final result Normal [facility] XR ANKLE LEFT 3+ VIEWSon XR [...] threaded screw which could suggest loosening Normal [facility] XR Ankle - left 3 Viewson [...] and threaded screw which could suggest loosening [facility] Radiology Study observation (narrative) [facility] XR Ankle - left 3 ViewsOrder ed By: Toya Martinez on 09-14-2023 [facility] Work Phone: CT CSpine W/O Contraston Radiology Study observation (narrative) [facility] CT Head W/O Contraston 07-01 Radiology Study observation (narrative) [facility] CT LUMBAR SPINE WO CONTRASTo n 07-01-2023 Radiology Study observation (narrative) [facility] CT THORACIC SPINE WO CONTRAS Ton 07-01-2023 Radiology Study observation (narrative) [facility] No Panel Informationon 07-01 1. No acute [...] There is no prevertebral soft tissue swelling. [facility] RIS CONSOLIDATED Franck Jauregui MD - [...] involving the cervical, thoracic or lumbar spine. [facility] [employer] No Panel InformationOrdered By: Franck Jauregui on 07-01-2023 [facility] [employer] Work Phone: XR Ankle - left 3 [...] intact fixation hardware. Slightly progressive bony bridging. [facility] Radiology Study observation (narrative) [facility] XR Ankle - left 3 ViewsOrder ed By: Akil Zurita on 06-15-2023 [facility] Work Phone: XR Ankle - left 3 [...] arthrodesis without additional changes to either joint. [facility] Radiology Study observation (narrative) [facility] XR Ankle - left 3 ViewsOrder ed By: Erick Rogers on 05-04-2023 [facility] Work Phone: No Panel Informationon 03-16 Yue [...] concurred with the proposed plan, giving consent. [facility] Radiology Study observation (narrative) [facility] CBC AND ELECTRONIC DIFFon Basophils (Bld) [#/Vol] K/uL 0.00 - 0.09 K/uL [facility] Basophils/100 WBC (Bld) 0.2 % O [facility] Differential cell count method Nom (Bld) Electronic Differential [facility] Eosinophils (Bld) [#/Vol] 0.20 10*3/uL 0. 00 - 0.48 K/uL [facility] Eosinophils/100 WBC (Bld) 2.4 % [facility] Erythrocyte distribution width (RBC) [Ratio] 11.6 % 10.9 - 14.3 % [facility] Hematocrit (Bld) [Volume fraction] 34.7 % Low 39.6 - 48.8 % [facility] Hemoglobin (Bld) [Mass/Vol] 11.4 g/dL Low 13.4 - 16.8 g/dL [facility] Immature granulocytes (Bld) [#/Vol] 0.09 10*3/uL High NINF - 0.07 K/uL [facility] Immature granulocytes/100 WBC (Bld) 1.1 % [facility] Interpretation and review of laboratory results Abnormal [facility] Lymphocytes (Bld) [#/Vol] 1.25 10*3/uL 0. 83 - 3.57 K/uL [facility] Lymphocytes/100 WBC (Bld) 15.0 % [facility] MCH (RBC) [Entitic mass] 31.4 pg 26. 1 - 33.3 pg [facility] MCHC (RBC) [Mass/Vol] 32.9 g/dL 31.9 - 36.5 g/dL [facility] MCV (RBC) [Entitic vol] 95.6 fL High 79.0 - 94.5 fL [facility] Monocytes (Bld) [#/Vol] 0.95 10*3/uL High 0.24 - 0.93 K/uL [facility] Monocytes/100 WBC (Bld) 11.4 % O [facility] Neutrophils (Bld) [#/Vol] 5.82 10*3/uL 1. 57 - 6.19 K/uL [facility] Nucleated RBC/100 WBC (Bld) [Ratio] 0.0 % NINF [facility] Platelet mean volume (Bld) [Entitic vol] 11.2 fL 8.7 - 12.3 fL [facility] Platelets (Bld) [#/Vol] 186 10*3/uL 146 - 337 K/uL [facility] RBC (Bld) [#/Vol] 3.63 10*6/uL Low [facility] Segmented neutrophils/100 WBC (Bld) 69.9 % [facility] WBC (Bld) [#/Vol] 8.33 10*3/uL 3.73 - 10. 10 K/uL [facility] CHEM 7 (LYTES,BUN,CREA,GLUC) on 03-01-2023 Anion gap [Moles/Vol] 13 mmol/L 7 - 17 mmol/L [facility] Chloride [Moles/Vol] 97 mmol/L Low 98 - 10 8 mmol/L [facility] CO2 [Moles/Vol] 23 mmol/L 21 - 31 mmol/L [facility] Creatinine [Mass/Vol] 0.81 mg/dL 0.70 - 1.30 mg/dL [facility] GFR/1.73 sq M.predicted CKD-EPI (S/P/Bld) [Vol rate/Area] - [facility] Comment on above: Reported eGFR is bas ed on the CKD-EPI 2020 equation using creatinine, age, and sex. Glucose [Mass/Vol] 118 mg/dL High 70 - 99 mg/dL [facility] Interpretation and review of laboratory results Abnormal [facility] Osmolality Calc [Osmolality] 272 Low [facility] Potassium [Moles/Vol] 3.5 mmol/L 3.5 - 5.0 mmol/L [facility] Sodium [Moles/Vol] 129 mmol/L Low 135 - 145 mmol/L [facility] Urea nitrogen [Mass/Vol] 12 mg/dL 7 - 25 mg/d L [facility] Urea nitrogen/Creatinine [Mass ratio] 15 mg/mg [facility] CHEM 6 (LYTES, BUN CREA)on 0 02-28-2023 Anion gap [Moles/Vol] 13 mmol/L 7 - 17 mmol/L [facility] Chloride [Moles/Vol] 98 mmol/L 98 - 10 8 mmol/L [facility] CO2 [Moles/Vol] 23 mmol/L 21 - 31 mmol/L [facility] Creatinine [Mass/Vol] 0.67 mg/dL Low 0.70 - 1.30 mg/dL [facility] GFR/1.73 sq M.predicted CKD-EPI (S/P/Bld) [Vol rate/Area] - PINF [facility] Comment on above: Reported eGFR is bas ed on the CKD-EPI 2020 equation using creatinine, age, and sex. Interpretation and review of laboratory results Abnormal [facility] Potassium [Moles/Vol] 4.2 mmol/L 3.5 - 5.0 mmol/L [facility] Sodium [Moles/Vol] 130 mmol/L Low 135 - 145 mmol/L [facility] Urea nitrogen [Mass/Vol] 12 mg/dL 7 - 25 mg/d L [facility] Urea nitrogen/Creatinine [Mass ratio] 18 mg/mg [facility] US Unspecified body region d uring surgeryOrdered By: Unassigned Pacs on 02-28-2023 [facility] Work Phone: US Unspecified body region d uring surgeryon 02-28-2023 Radiology Study observation (narrative) [facility] PT,INR,PTTon 02-22-2023 aPTT Coag (PPP) [Time] 33.0 s OS [facility] INR Coag (Bld) [Relative time] 1.1 {INR} 0.9 - 1.1 [facility] Interpretation and review of laboratory results Normal [facility] PT Coag (PPP) [Time] 13.7 s [facility] No Panel Informationon 02-13 IMPRESSION: Talar eversion [...] 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 [facility] No Panel InformationOrdered By: Akil Zurita on 02-13-2023 [facility] Work Phone: XR Ankle - left 3 [facility] Radiology Study observation (narrative) [facility] XR Foot - left 3 [facility] Radiology Study observation (narrative) [facility] Basic Metabolic Panelon - Anion gap [Moles/Vol] 8 mmol/L Low 9 - 17 mmol/L [facility] Calcium [Mass/Vol] 8.3 mg/dL Low 8.6 - 10. 4 mg/dL [facility] Chloride [Moles/Vol] 105 mmol/L 98 - 10 7 mmol/L [facility] CO2 [Moles/Vol] 24 mmol/L 20 - 31 mmol/L [facility] Creatinine [Mass/Vol] 0.61 mg/dL Low 0.70 - 1.20 mg/dL [facility] GFR/1.73 sq M.predicted MDRD (S/P/Bld) [Vol rate/Area] - PINF [facility] [employer] Comment on above: These results are not [...] [Mass/Vol] 80 mg/dL 70 - 99 mg/dL [facility] Interpretation and review of laboratory results Abnormal [facility] [employer] PF Potassium [Moles/Vol] 4.5 mmol/L 3.7 - 5.3 mmol/L [facility] Sodium [Moles/Vol] 137 mmol/L 135 - 144 mmol/L [facility] Urea nitrogen [Mass/Vol] 18 mg/dL 8 - 23 mg/d L [facility] Urea nitrogen/Creatinine (Bld) [Mass ratio] 30 High 9 - 20 [facility] CBC with Auto Differentialon 02-06-2023 Absolute Eos # 0.10 [facility] Absolute Immature Granulocyte 0.09 [facility] Absolute Lymph # 1.12 [facility] Absolute [place] # 0.91 [facility] Basophils (Bld) [#/Vol] 0.04 10*3/uL [facility] Basophils/100 WBC (Bld) 1 % 0 - 2 % B [facility] Eosinophils/100 WBC (Bld) 2 % 1 - 4 % [facility] Hematocrit (Bld) [Volume fraction] 36.9 % Low 40.7 - 50.3 % [facility] Hemoglobin (Bld) [Mass/Vol] 12.1 g/dL Low 13.0 - 17.0 g/dL [facility] Immature granulocytes/100 WBC (Bld) 1 % High 0 [facility] Interpretation and review of laboratory results Abnormal [facility] Lymphocytes/100 WBC (Bld) 17 % Low 24 - 43 % [facility] MCH (RBC) [Entitic mass] 32.6 pg 25. 2 - 33.5 pg [facility] MCHC (RBC) [Mass/Vol] 32.8 g/dL 28.4 - 34.8 g/dL [facility] MCV (RBC) [Entitic vol] 99.5 fL 82.6 - 102.9 fL [facility] Monocytes/100 WBC (Bld) 14 % High 3 - 12 % [facility] NRBC Automated 0.0 0.0 per 100 WBC [facility] Platelet distribution width (Bld) [Ratio] 12.7 % 11.8 - 14.4 % [facility] Platelet mean volume (Bld) [Entitic vol] 10.9 fL 8.1 - 13.5 fL [facility] Platelets (Bld) [#/Vol] 186 10*3/uL [facility] RBC (Bld) [#/Vol] 3.71 10*6/uL Low 4.21 - 5.7 7 m/uL [facility] Segmented neutrophils/100 WBC (Bld) 65 % 36 - 65 % [facility] Segs Absolute 4.34 [facility] WBC (Bld) [#/Vol] 6.6 10*3/uL [facility] Basic Metabolic Panel, Fasti ngon 01-30-2023 Anion gap [Moles/Vol] 8 mmol/L Low 9 - 17 mmol/L [facility] Calcium [Mass/Vol] 8.1 mg/dL Low 8.6 - 10. 4 mg/dL [facility] Chloride [Moles/Vol] 102 mmol/L 98 - 10 7 mmol/L [facility] CO2 [Moles/Vol] 23 mmol/L 20 - 31 mmol/L [facility] Creatinine [Mass/Vol] 0.62 mg/dL Low 0.70 - 1.20 mg/dL [facility] GFR/1.73 sq M.predicted MDRD (S/P/Bld) [Vol rate/Area] - PINF [facility] Comment on above: These results are not [...] [Mass/Vol] 87 mg/dL 70 - 99 mg/dL [facility] Interpretation and review of laboratory results Abnormal [facility] Potassium [Moles/Vol] 4.4 mmol/L 3.7 - 5.3 mmol/L [facility] Sodium [Moles/Vol] 133 mmol/L Low 135 - 144 mmol/L [facility] Urea nitrogen [Mass/Vol] 14 mg/dL 8 - 23 mg/d L [facility] Urea nitrogen/Creatinine (Bld) [Mass ratio] 23 High 9 - 20 [facility] CBC with Auto Differentialon 01-30-2023 Absolute Eos # 0.10 [facility] Absolute Immature Granulocyte 0.11 [facility] Absolute Lymph # 1.15 [facility] Absolute [place] # 0.82 [facility] RS [facility] Basophils (Bld) [#/Vol] 0.04 10*3/uL [facility] Basophils/100 WBC (Bld) 1 % 0 - 2 % [facility] Eosinophils/100 WBC (Bld) 2 % 1 - 4 % [facility] Hematocrit (Bld) [Volume fraction] 37.3 % Low 40.7 - 50.3 % [facility] Hemoglobin (Bld) [Mass/Vol] 12.3 g/dL Low 13.0 - 17.0 g/dL [facility] Immature granulocytes/100 WBC (Bld) 2 % High 0 [facility] Interpretation and review of laboratory results Abnormal [facility] Lymphocytes/100 WBC (Bld) 18 % Low 24 - 43 % [facility] MCH (RBC) [Entitic mass] 32.3 pg 25. 2 - 33.5 pg [facility] MCHC (RBC) [Mass/Vol] 33.0 g/dL 28.4 - 34.8 g/dL [facility] MCV (RBC) [Entitic vol] 97.9 fL 82.6 - 102.9 fL [facility] Monocytes/100 WBC (Bld) 13 % High 3 - 12 % [facility] NRBC Automated 0.0 0.0 per 100 WBC [facility] Platelet distribution width (Bld) [Ratio] 13.2 % 11.8 - 14.4 % [facility] Platelet mean volume (Bld) [Entitic vol] 11.2 fL 8.1 - 13.5 fL [facility] Platelets (Bld) [#/Vol] 218 10*3/uL [facility] RBC (Bld) [#/Vol] 3.81 10*6/uL Low 4.21 - 5.7 7 m/uL [facility] Segmented neutrophils/100 WBC (Bld) 64 % 36 - 65 % [facility] Segs Absolute 4.15 [facility] WBC (Bld) [#/Vol] 6.4 10*3/uL [facility] Basic Metabolic Panelon Anion gap [Moles/Vol] 8 mmol/L Low 9 - 17 mmol/L [facility] Calcium [Mass/Vol] 8.6 mg/dL 8.6 - 10. 4 mg/dL [facility] Chloride [Moles/Vol] 100 mmol/L 98 - 10 7 mmol/L [facility] CO2 [Moles/Vol] 25 mmol/L 20 - 31 mmol/L [facility] Creatinine [Mass/Vol] 0.63 mg/dL Low 0.70 - 1.20 mg/dL [facility] GFR/1.73 sq M.predicted MDRD (S/P/Bld) [Vol rate/Area] - PINF [facility] Comment on above: These results are not [...] [Mass/Vol] 93 mg/dL 70 - 99 mg/dL [facility] Interpretation and review of laboratory results Abnormal [facility] Potassium [Moles/Vol] 4.0 mmol/L 3.7 - 5.3 mmol/L [facility] Sodium [Moles/Vol] 133 mmol/L Low 135 - 144 mmol/L [facility] Urea nitrogen [Mass/Vol] 8 mg/dL 8 - 23 mg/d L [facility] Urea nitrogen/Creatinine (Bld) [Mass ratio] 13 9 - 20 [facility] CBC with Auto Differentialon 01-16-2023 Absolute Eos # 0.05 [facility] Absolute Immature Granulocyte 0.12 [facility] Absolute Lymph # 1.54 [facility] Absolute [place] # 0.51 [facility] Basophils (Bld) [#/Vol] 0.04 10*3/uL [facility] Basophils/100 WBC (Bld) 1 % 0 - 2 % [facility] Eosinophils/100 WBC (Bld) 1 % 1 - 4 % [facility] Hematocrit (Bld) [Volume fraction] 36.6 % Low 40.7 - 50.3 % [facility] Hemoglobin (Bld) [Mass/Vol] 12.3 g/dL Low 13.0 - 17.0 g/dL [facility] Immature granulocytes/100 WBC (Bld) 3 % High 0 [facility] Interpretation and review of laboratory results Abnormal [facility] Lymphocytes/100 WBC (Bld) 33 % 24 - 43 % [facility] MCH (RBC) [Entitic mass] 32.4 pg 25. 2 - 33.5 pg [facility] MCHC (RBC) [Mass/Vol] 33.6 g/dL 28.4 - 34.8 g/dL [facility] MCV (RBC) [Entitic vol] 96.3 fL 82.6 - 102.9 fL [facility] Monocytes/100 WBC (Bld) 11 % 3 - 12 % [facility] NRBC Automated 0.0 0.0 per 100 WBC [facility] Platelet distribution width (Bld) [Ratio] 14.3 % 11.8 - 14.4 % [facility] Platelet mean volume (Bld) [Entitic vol] 11.0 fL 8.1 - 13.5 fL [facility] Platelets (Bld) [#/Vol] 216 10*3/uL [facility] RBC (Bld) [#/Vol] 3.80 10*6/uL Low 4.21 - 5.7 7 m/uL [facility] Segmented neutrophils/100 WBC (Bld) 51 % 36 - 65 % [facility] Segs Absolute 2.35 [facility] WBC (Bld) [#/Vol] 4.6 10*3/uL [facility] COVID-19, Rapidon 01-12-2023 SARS-CoV-2 (COVID-19) RdRp gene RENETTA+probe Ql (Resp) Not detected Not Detected [facility] Comment on above: Rapid NAAT: The specimen [...] management decisions. Fact sheet for Healthcare Providers: https://www.fda.gov/media/065924/download Fact sheet for Patients: https://www.fda.gov/media/085495/download Methodology: Isothermal Nucleic Acid Amplification Specimen Description .NASOPHARYNGEAL SWAB [facility] Rapid influenza A/B antigens on 01-12-2023 FLUAV Ag Ql (Unsp spec) Negative NEGATIVE [facility] Comment on above: for Influenza A Anti gen FLUBV Ag Ql (Unsp spec) Negative NEGATIVE B ON [facility] Comment on above: for Influenza B Anti gen. [facility] XR CHEST PORTABLEon 01-13-20 Stable chest without acute cardiopulmonary process. [facility] EXAMINATION: ONE XRAY [...] No pleural effusion. No overt pulmonary edema. [facility] Jerson Stern MD [...] IMPRESSION: Stable chest without acute cardiopulmonary process. [facility] Work Phone: XR CHEST PORTABLEOrdered By: Jerson Stern on 01-12-2023 [facility] Work Phone: XR CHEST PORTABLEon 01-12-20 Radiology Study observation (narrative) [employer] Work Phone: Basic Metabolic Panelon 12-15 Anion gap [Moles/Vol] 8 mmol/L Low 9 - 17 mmol/L [facility] Calcium [Mass/Vol] 8.2 mg/dL Low 8.6 - 10. 4 mg/dL [facility] Chloride [Moles/Vol] 101 mmol/L 98 - 10 7 mmol/L [facility] CO2 [Moles/Vol] 26 mmol/L 20 - 31 mmol/L [facility] Creatinine [Mass/Vol] 0.71 mg/dL 0.70 - 1.20 mg/dL [facility] GFR/1.73 sq M.predicted MDRD (S/P/Bld) [Vol rate/Area] - PINF [facility] Comment on above: These results are not [...] 102 mg/dL High 70 - 99 mg/dL [facility] Interpretation and review of laboratory results Abnormal G5 Potassium [Moles/Vol] 4.0 mmol/L 3.7 - 5.3 mmol/L [facility] Sodium [Moles/Vol] 135 mmol/L 135 - 144 mmol/L [facility] Urea nitrogen [Mass/Vol] 17 mg/dL 8 - 23 mg/d L [facility] Urea nitrogen/Creatinine (Bld) [Mass ratio] 24 High 9 - 20 [facility] CBC with Auto Differentialon 01-09-2023 Absolute Eos # 0.09 [facility] Absolute Immature Granulocyte 0.10 [facility] Absolute Lymph # 0.95 Low [facility] Absolute [place] # 1.08 [facility] Basophils (Bld) [#/Vol] 0.04 10*3/uL [facility] Basophils/100 WBC (Bld) 1 % 0 - 2 % B ON [facility] Eosinophils/100 WBC (Bld) 1 % 1 - 4 % [facility] Hematocrit (Bld) [Volume fraction] 36.0 % Low 40.7 - 50.3 % [facility] Hemoglobin (Bld) [Mass/Vol] 11.6 g/dL Low 13.0 - 17.0 g/dL [facility] Immature granulocytes/100 WBC (Bld) 2 % High 0 [facility] Interpretation and review of laboratory results Abnormal [facility] Lymphocytes/100 WBC (Bld) 15 % Low 24 - 43 % [facility] MCH (RBC) [Entitic mass] 31.9 pg 25. 2 - 33.5 pg [facility] MCHC (RBC) [Mass/Vol] 32.2 g/dL 28.4 - 34.8 g/dL [facility] MCV (RBC) [Entitic vol] 98.9 fL 82.6 - 102.9 fL [facility] Monocytes/100 WBC (Bld) 17 % High 3 - 12 % B ON [facility] NRBC Automated 0.0 0.0 per 100 WBC [facility] Platelet distribution width (Bld) [Ratio] 14.9 % High 11.8 - 14.4 % [facility] Platelet mean volume (Bld) [Entitic vol] 11.4 fL 8.1 - 13.5 fL [facility] Platelets (Bld) [#/Vol] 247 10*3/uL [facility] RBC (Bld) [#/Vol] 3.64 10*6/uL Low 4.21 - 5.7 7 m/uL [facility] Segmented neutrophils/100 WBC (Bld) 64 % 36 - 65 % [facility] Segs Absolute 4.29 [facility] WBC (Bld) [#/Vol] 6.6 10*3/uL [facility] CBC,PLATELETSon 01-02-2023 Erythrocyte distribution width (RBC) [Ratio] 15.8 % High 10.9 - 14.3 % [facility] Hematocrit (Bld) [Volume fraction] 36.6 % Low 39.6 - 48.8 % [facility] Hemoglobin (Bld) [Mass/Vol] 12.0 g/dL Low 13.4 - 16.8 g/dL [facility] Interpretation and review of laboratory results Abnormal [facility] MCH (RBC) [Entitic mass] 30.8 pg 26. 1 - 33.3 pg [facility] MCHC (RBC) [Mass/Vol] 32.8 g/dL 31.9 - 36.5 g/dL [facility] MCV (RBC) [Entitic vol] 93.8 fL 79.0 - 94.5 fL [facility] Platelet mean volume (Bld) [Entitic vol] 10.5 fL 8.7 - 12.3 fL [facility] Platelets (Bld) [#/Vol] 233 10*3/uL 146 - 337 K/uL [facility] RBC (Bld) [#/Vol] 3.90 10*6/uL Low [facility] WBC (Bld) [#/Vol] 6.79 10*3/uL 3.73 - 10. 10 K/uL [facility] CHEM 7 (LYTES,BUN,CREA,GLUC) on 01-02-2023 Anion gap [Moles/Vol] 9 mmol/L 7 - 17 mmol/L [facility] Chloride [Moles/Vol] 106 mmol/L 98 - 10 8 mmol/L [facility] CO2 [Moles/Vol] 26 mmol/L 21 - 31 mmol/L [facility] Creatinine [Mass/Vol] 0.82 mg/dL 0.70 - 1.30 mg/dL [facility] GFR/1.73 sq M.predicted CKD-EPI (S/P/Bld) [Vol rate/Area] - PINF [facility] Comment on above: Reported eGFR is bas ed on the CKD-EPI 2020 equation using creatinine, age, and sex. Glucose [Mass/Vol] 81 mg/dL 70 - 99 mg/dL [facility] Osmolality Calc [Osmolality] 287 [facility] Potassium [Moles/Vol] 3.9 mmol/L 3.5 - 5.0 mmol/L [facility] Sodium [Moles/Vol] 137 mmol/L 135 - 145 mmol/L [facility] Urea nitrogen [Mass/Vol] 16 mg/dL 7 - 25 mg/d L [facility] Urea nitrogen/Creatinine [Mass ratio] 20 mg/mg [facility] Cardiac echo study Procedure Ordered By: Sol Nugent on 01-02-2023 Ao peak sami 1.64 m/s [facility] Work Phone: Ao VTI 25.10 cm [facility] Work Phone: Ascending [facility] 3.[facility] LVOT peak gradient 3 mmHg [facility] Work Phone: AV mean gradient 5 mmHg [facility] Work Phone: AV peak gradient 11 mmHG [facility] Work Phone: AV valve area 3.12 cm2 [facility] Work Phone: AV Velocity Ratio [facility] Work Phone: COOPER (continuity Vmax) 2.40 cm2 [facility] Work [facility]: COOPER (continuity VTI) 3.12 cm2 [facility] Work Phone: COOPER index (continuity Vmax) 1.30 m/s [facility] Work Phone: COOPER index (continuity VTI) 1.68 cm2/m2 [facility] Work Phone: Avg e' pk sami 0.07 m/s [facility] Work Phone: Avg E/e' ratio 8.74 [facility] Work Phone: Body surface area Derived from formula 1.85 m2 [facility] Work Phone: BP EF 58 % [facility] Work Phone: DI (Vmax) 0.53 [facility] Work Phone: DI (VTI) 0.69 m/2 [facility] Work Phone: E wave decelartion time 254.[address] [facility] Work Phone: e' lateral pk sami 0.0772 [facility] Work Phone: e' lateral pk sami 0.08 [facility] Work Phone: e' septal pk sami 0.0696 [facility]: e' septal pk sami 0.07 m/s [facility] Work Phone: E/A ratio 0.89 [facility] Work Phone: E/e' lateral [facility] 8.29 [facility]: E/e' septal ratio 9.20 [facility] Work Phone: EF SP 2CH 61 [facility] Work Phone: EF SP 4CH 54 [facility] Work Phone: FS 40 % 28 - 44 % [facility] Work Phone: IVS 0.92 cm [facility] Work Phone: LA AREA 2CH 18.10 cm2 [facility] Work Phone: LA area 4CH 16.80 cm2 [facility] Work Phone: LA ESV BP (MOD) 47 mL [facility] Work Phone: LA ESV BP (MOD) index 25 mL/m2 [facility] Work Phone: LA ESV SP 2CH (MOD) 50 mL [facility] Work Phone: LA ESV SP 4CH (MOD) 43 mL [facility] Work Phone: LA size 3.30 cm [facility] Work Phone: LEFT ATRIAL DIAMETER INDEX 1.78 cm/m2 [facility] Work Phone: LV EDV BP 81 mL [facility] Work Phone: LV EDV SP 2CH 79 mL [facility] Work Phone: LV EDV SP 4CH 76 mL [facility] Work Phone: LV ESV BP 34 mL [facility] Work Phone: LV ESV SP 2CH 31 mL [facility] Work Phone: LV ESV SP 4CH 35 mL [facility] Work Phone: LV mass 142.55 g [facility] Work Phone: LV Mass Index 77.1 g/m2 [facility] Work Phone: LV RWT 0.50 [facility] Work Phone: LV stroke volume BP (ml) 47 mL [facility] Work Phone: LV stroke volume index BP 25.41 mL/m2 [facility] Work Phone: LVIDD 4.32 cm [facility] Work Phone: LVIDS 2.59 cm [facility] Work Phone: LVOT area 4.52 cm2 [facility] Work Phone: LVOT diameter 2.40 cm [facility] Work Phone: LVOT peak sami 0.87 m/s [facility] Work Phone: LVOT peak VTI 17.30 cm [facility] Work Phone: LVOT stroke volume 78 cm3 [facility] Work Phone: LVOT stroke volume index 42.28 ml/m2 [facility] Work Phone: MV pk A sami 0.72 m/s [facility] Work Phone: MV pk E sami 0.64 m/s [facility] Work Phone: [facility] AV VTI RATIO PRE STRESS 0.69 [facility] Work Phone: [facility] ECHO LV BIPLANE SYSTOLIC VOLUME INDEX 18.38 mL/m2 [facility] Work Phone: [facility] ECHO LV BP DIASTOLIC VOLUME INDEX 43.78 mL/m2 [facility] Work Phone: [facility] RVOT VTI RATIO 0.67 [facility] Work Phone: PV mean gradient 2 mmHg [facility] Work Phone: PV peak gradient 4 mmHg [facility] Work Phone: PV PK SAMI 0.95 m/s [facility] Work Phone: PV VTI 19.50 cm [facility] Work Phone: PW 1.07 cm [facility] Work Phone: RVOT peak gradient 1 mmHg [facility] Work Phone: RVOT peak sami 0.59 m/s [facility] Work Phone: RVOT peak VTI 13.00 cm [facility] Work Phone: Sinus 3.60 cm [facility] Work Phone: STJ 3.04 cm [facility] Work Phone: Stroke Volume 78 cm/mL [facility] Work Phone: Stroke volume index 42 [facility] Work Phone: [facility] Work Phone: Cardiac echo study Procedure on [...] technically difficult study. Imaging system used: Ganesh. [facility] Radiology Study observation (narrative) [facility] US Unspecified body region d uring surgeryOrdered By: Unassigned Pacs on 01-02-2023 [facility] Work Phone: Bacteria identified Cx Nom ( Unsp spec)Ordered By: Bárbara Corrigan on 01-01-2023 Microscopic observation Other stain Nom (Unsp spec) Neutrophils, Light [facility] Microscopic observation Other stain Nom (Unsp spec) Red Blood Cells Present [facility] Microscopic observation Other stain Nom (Unsp spec) No organisms seen [facility] Comment on above: Final report, verifi ed by Microbiology. [facility] Bacteria identified Cx Nom ( Unsp spec)on 01-01-2023 Microscopic observation Other stain Nom (Unsp spec) Neutrophils, None [facility] Microscopic observation Other stain Nom (Unsp spec) Mononuclear cells present [facility] Microscopic observation Other stain Nom (Unsp spec) Neutrophils, Rare [facility] CBC,PLATELETSon 01-01-2023 Erythrocyte distribution width (RBC) [Ratio] 15.3 % High 10.9 - 14.3 % [facility] Hematocrit (Bld) [Volume fraction] 36.0 % Low 39.6 - 48.8 % [facility] Hemoglobin (Bld) [Mass/Vol] 11.9 g/dL Low 13.4 - 16.8 g/dL [facility] Interpretation and review of laboratory results Abnormal [facility] MCH (RBC) [Entitic mass] 30.0 pg 26. 1 - 33.3 pg [facility] MCHC (RBC) [Mass/Vol] 33.1 g/dL 31.9 - 36.5 g/dL [facility] MCV (RBC) [Entitic vol] 90.7 fL 79.0 - 94.5 fL [facility] Platelet mean volume (Bld) [Entitic vol] 10.4 fL 8.7 - 12.3 fL [facility] Platelets (Bld) [#/Vol] 248 10*3/uL 146 - 337 K/uL [facility] RBC (Bld) [#/Vol] 3.97 10*6/uL Low [facility] WBC (Bld) [#/Vol] 8.95 10*3/uL 3.73 - 10. 10 K/uL [facility] CHEM 7 (LYTES,BUN,CREA,GLUC) on 01-01-2023 Anion gap [Moles/Vol] 9 mmol/L 7 - 17 mmol/L [facility] Chloride [Moles/Vol] 105 mmol/L 98 - 10 8 mmol/L [facility] CO2 [Moles/Vol] 25 mmol/L 21 - 31 mmol/L [facility] Creatinine [Mass/Vol] 0.86 mg/dL 0.70 - 1.30 mg/dL [facility] GFR/1.73 sq M.predicted CKD-EPI (S/P/Bld) [Vol rate/Area] - [facility] Comment on above: Reported eGFR is bas ed on the CKD-EPI 2020 equation using creatinine, age, and sex. Glucose [Mass/Vol] 85 mg/dL 70 - 99 mg/dL [facility] Osmolality Calc [Osmolality] 283 [facility] Potassium [Moles/Vol] 4.2 mmol/L 3.5 - 5.0 mmol/L [facility] Sodium [Moles/Vol] 135 mmol/L 135 - 145 mmol/L [facility] Urea nitrogen [Mass/Vol] 14 mg/dL 7 - 25 mg/d L [facility] Urea nitrogen/Creatinine [Mass ratio] 16 mg/mg [facility] Laboratory - Microbiology an d Antimicrobial susceptibilityOrdered By: Bárbara Corrigan on 01-01-2023 Bacteria identified Cx Nom (Unsp spec) NO GROWTH DAY 2 OF 2 [facility] CREATININE SERUMon 3 Creatinine [Mass/Vol] 0.62 mg/dL Low 0.70 - 1.30 mg/dL [facility] GFR/1.73 sq M.predicted CKD-EPI (S/P/Bld) [Vol rate/Area] - PINF [facility] Comment on above: Reported eGFR is bas ed on the CKD-EPI 2020 equation using creatinine, age, and sex. Interpretation and review of laboratory results Abnormal [facility] PLATELET COUNTon 12-31-2022 Interpretation and review of laboratory results Normal [facility] Platelet mean volume (Bld) [Entitic vol] 10.2 fL 8.7 - 12.3 fL [facility] Platelets (Bld) [#/Vol] 261 10*3/uL 146 - 337 K/uL [facility] C REACTIVE PROTEINon 023 CRP High sensitivity method [Mass/Vol] 2.12 mg/L NINF - 10.00 mg/L [facility] Interpretation and review of laboratory results Normal [facility] CBC,PLATELETSon 12-30-2022 Erythrocyte distribution width (RBC) [Ratio] 14.9 % High 10.9 - 14.3 % [facility] Hematocrit (Bld) [Volume fraction] 43.7 % 39.6 - 48.8 % [facility] Hemoglobin (Bld) [Mass/Vol] 14.5 g/dL 13.4 - 16.8 g/dL [facility] Interpretation and review of laboratory results Abnormal [facility] MCH (RBC) [Entitic mass] 30.5 pg 26. 1 - 33.3 pg [facility] MCHC (RBC) [Mass/Vol] 33.2 g/dL 31.9 - 36.5 g/dL [facility] MCV (RBC) [Entitic vol] 92.0 fL 79.0 - 94.5 fL [facility] Platelet mean volume (Bld) [Entitic vol] 9.9 fL 8.7 - 12.3 fL [facility] Platelets (Bld) [#/Vol] 241 10*3/uL 146 - 337 K/uL [facility] RBC (Bld) [#/Vol] 4.75 10*6/uL [facility] WBC (Bld) [#/Vol] 7.77 10*3/uL 3.73 - 10. 10 K/uL [facility] COMPREHENSIVE METABOLIC PANE Sandor 12-30-2022 Albumin [Mass/Vol] 3.8 g/dL 3.5 - 5.0 g/dL [facility] ALP [Catalytic activity/Vol] 66 U/L 32 - 126 U/L [facility] ALT [Catalytic activity/Vol] 15 U/L 10 - 52 U/L [facility] Anion gap [Moles/Vol] 12 mmol/L 7 - 17 mmol/L [facility] AST [Catalytic activity/Vol] 15 U/L 10 - 39 U/L [facility] Bilirubin [Mass/Vol] 0.6 mg/dL NINF - 1.5 mg/dL [facility] Calcium [Mass/Vol] 9.0 mg/dL 8.6 - 10. 5 mg/dL [facility] Chloride [Moles/Vol] 104 mmol/L 98 - 10 8 mmol/L [facility] CO2 [Moles/Vol] 25 mmol/L 21 - 31 mmol/L [facility] Creatinine [Mass/Vol] 0.69 mg/dL Low 0.70 - 1.30 mg/dL [facility] GFR/1.73 sq M.predicted CKD-EPI (S/P/Bld) [Vol rate/Area] - PINF [facility] Comment on above: Reported eGFR is bas ed on the CKD-EPI 2020 equation using creatinine, age, and sex. Glucose [Mass/Vol] 98 mg/dL 70 - 99 mg/dL [facility] Interpretation and review of laboratory results Abnormal [facility] Osmolality Calc [Osmolality] 288 [facility] Potassium [Moles/Vol] 4.0 mmol/L 3.5 - 5.0 mmol/L [facility] Protein [Mass/Vol] 6.8 g/dL 6.4 - 8.3 g/dL [facility] Sodium [Moles/Vol] 137 mmol/L 135 - 145 mmol/L [facility] Urea nitrogen [Mass/Vol] 14 mg/dL 7 - 25 mg/d L [facility] Urea nitrogen/Creatinine [Mass ratio] 20 mg/mg [facility] No Panel Informationon 12-30 [facility] SEDIMENTATION RATE, AUTOMATE DOrdered By: Kim Echols on 12-30-2022 ESR (Bld) [Velocity] 20 mm/h High NINF [facility] Interpretation and review of laboratory results Abnormal [facility] US Unspecified body region d uring surgeryon 12-30-2022 Radiology Study observation (narrative) [facility] XR Ankle - left 3 Viewson [...] impingement. Advanced osseous demineralization. Remote ligamentous trauma. [facility] Radiology Study observation (narrative) [facility] XR Ankle - left 3 ViewsOrder ed By: Campos Marquis on 12-22-2022 [facility] Work Phone: Body fluid cell counton 11-13 Appearance, Fluid SLIGHTLY CLOUDY [facility]ART[facility] [employer] Color, Fluid PALE YELLOW [facility] [employer] RBC, Fluid 4000 /mm3 [facility] [employer] Specimen type Nom (Spec) 1 CONTAINER [facility] [employer] WBC, Fluid 4944 /mm3 [facility] [employer] [facility] [employer] C-Reactive Proteinon 023 CRP [Mass/Vol] 9.8 mg/L High 0.0 - 5.0 mg/L [facility] Interpretation and review of laboratory results Abnormal [facility] CBC with Auto Differentialon 11-25-2022 Absolute Eos # DUTCH VÁZQUEZ S [facility] Absolute Immature Granulocyte 0.16 [facility] Absolute Lymph # 0.51 Low DUTCH AWANO MADHU [facility] Absolute [place] # 0.30 [facility] Basophils (Bld) [#/Vol] 0.04 10*3/uL [facility] Basophils/100 WBC (Bld) 1 % 0 - 2 % B ON [facility] Eosinophils/100 WBC (Bld) 0 % Low 1 - 4 % [facility] Hematocrit (Bld) [Volume fraction] 41.1 % 40.7 - 50.3 % [facility] Hemoglobin (Bld) [Mass/Vol] 14.0 g/dL 13.0 - 17.0 g/dL [facility] Immature granulocytes/100 WBC (Bld) 2 % High 0 [facility] Interpretation and review of laboratory results Abnormal OTWELL Willow [facility] Lymphocytes/100 WBC (Bld) 6 % Low 24 - 43 % [facility] MCH (RBC) [Entitic mass] 31.2 pg 25. 2 - 33.5 pg [facility] MCHC (RBC) [Mass/Vol] 34.1 g/dL 28.4 - 34.8 g/dL [facility] MCV (RBC) [Entitic vol] 91.5 fL 82.6 - 102.9 fL [facility] Monocytes/100 WBC (Bld) 4 % 3 - 12 % B [facility] NRBC Automated 0.0 0.0 per 100 WBC [facility] Platelet distribution width (Bld) [Ratio] 14.2 % 11.8 - 14.4 % [facility] Platelet mean volume (Bld) [Entitic vol] 9.7 fL 8.1 - 13.5 fL [facility] Platelets (Bld) [#/Vol] 219 10*3/uL [facility] RBC (Bld) [#/Vol] 4.49 10*6/uL 4.21 - 5.7 7 m/uL [facility] Segmented neutrophils/100 WBC (Bld) 87 % High 36 - 65 % [facility] Segs Absolute 7.63 [facility] WBC (Bld) [#/Vol] 8.6 10*3/uL [facility] Sedimentation Rateon 023 Interpretation and review of laboratory results Abnormal [facility] Sed Rate 29 High [facility] Cult,Bloodon 08-16-2022 Cult,Blood Specimen Description .BLOOD Special Requests L HAND 9 ML Culture NO GROWTH 5 DAYS Report Status FINAL 08/16/2022 [facility] Comment on above: Performed By: #### B MPX #### [employer] [address] [place] [address] [id number] Belt Worker: Amador Lopez MD Cult,Blood Specimen Description .BLOOD Special Requests R HAND 10 ML Culture NO GROWTH 5 DAYS Report Status FINAL 08/16/2022 [facility] Comment on above: Performed By: #### B MPX #### [facility] [address] [place] [address] [id number] Belt Worker: Amador Lopez MD Cult,Bloodon 08-14-2022 Cult,Blood Specimen Description .BLOOD Special Requests LEEFT HAND 3ML Culture NO GROWTH 5 DAYS Report Status FINAL 08/14/2022 [facility] Comment on above: Performed By: #### B C #### [employer] [address] [place] [address] [id number] Belt Worker: Amador Lopez MD Cult,Bloodon 08-12-2022 Cult,Blood Specimen [...] 08/11/22 @0430 Report Status FINAL 08/12/2022 Abnormal [facility] Comment on above: Performed By: #### S ED, PRCAL, CDP, BMPX #### [facility] [address] [place] [address] [phone] Belt Worker: Amador Lopez MD Basic Metab w/rfx MGon 08-11 (cont.) Normal [facility] Comment on above: Result Comment: Aver age GFR for 60-69 years old: 85 mL/min/1.73sq m Chronic Kidney Disease: <60 mL/min/1.73sq m Kidney failure: <15 mL/min/1.73sq m eGFR calculated using average adult body mass. Additional eGFR calculator available at: http://www.[employer]/multiple_crcl_2011.htm Performed By: #### S ED, PRCAL, CDP, BMPX #### [facility] [address] [place] [address] [id number] Belt Worker: Amador Lopez MD Anion gap [Moles/Vol] 6 mmol/L Low 9-17 [facility] Comment on above: Performed By: #### S ED, PRCAL, CDP, BMPX #### [facility] [address] [place] [address] [phone] Belt Worker: Amador Lopez MD Calcium [Mass/Vol] 8.0 mg/dL Low 8.6-10.4 [facility] Comment on above: Performed By: #### S ED, PRCAL, CDP, BMPX #### [employer] [address] [place] [address] [id number] Belt Worker: Amador Lopez MD Chloride [Moles/Vol] 105 mmol/L Normal 98-107 [facility] Comment on above: Performed By: #### S ED, PRCAL, CDP, BMPX #### [employer] [address] [place] [address] [id number] Belt Worker: Amador Lopez MD CO2 [Moles/Vol] 22 mmol/L Normal 20-31 [facility] Comment on above: Performed By: #### S ED, PRCAL, CDP, BMPX #### [facility] [address] [place] [address] [id number] Belt Worker: Amador Lopez MD Creatinine [Mass/Vol] 0.66 mg/dL Low 0.70-1.20 [facility] Comment on above: Performed By: #### S ED, PRCAL, CDP, BMPX #### [facility] [address] [place] [address] [id number] Belt Worker: Amador Lopez MD GFR, Amer >60 Normal >60 [facility] Comment on above: Performed By: #### S ED, PRCAL, CDP, BMPX #### [facility] [address] [place] [address] [id number] Belt Worker: Amador Lopez MD GFR,non Amer >60 Normal >60 [facility] Comment on above: Performed By: #### S ED, PRCAL, CDP, BMPX #### [facility] [address] [place] [phone] Belt Worker: Amador Lopez MD Glucose [Mass/Vol] 101 mg/dL High 70-99 [facility] Comment on above: Performed By: #### S ED, PRCAL, CDP, BMPX #### [facility] [address] [place] [phone] Belt Worker: Amador Lopez MD Potassium [Moles/Vol] 3.6 mmol/L Low 3.7-5.3 [facility] Comment on above: Performed By: #### S ED, PRCAL, CDP, BMPX #### [facility] [address] [place] [address] [phone] Belt Worker: Amador Lopez MD Sodium [Moles/Vol] 133 mmol/L Low 135-144 [facility] Comment on above: Performed By: #### S ED, PRCAL, CDP, BMPX #### [facility] [address] [place] [address] Belt Worker: Amador Lopez MD Urea nitrogen [Mass/Vol] 18 mg/dL Normal 8-23 [facility] Comment on above: Performed By: #### S ED, PRCAL, CDP, BMPX #### [facility] [address] [place] [address] Belt Worker: Amador Lopez MD CBC with Diffon 08-11-2022 Abs. Basophil 0.03 k/uL Normal 0.00-0.20 [facility] Comment on above: Performed By: #### S ED, PRCAL, CDP, BMPX #### [facility] [address] [place] [address] Belt Worker: Amador Lopez MD Abs.Imm.Granulocyte 0.12 k/uL Normal 0.00-0.30 [facility] Comment on above: Performed By: #### S ED, PRCAL, CDP, BMPX #### [facility] [address] [place] [address] Belt Worker: Amador Lopez MD Abs.Neutrophil (Seg) 4.40 k/uL Normal 1.50-8.10 [facility] Comment on above: Performed By: #### S ED, PRCAL, CDP, BMPX #### [facility] [address] [place] [address] Belt Worker: Amador Lopez MD Basophils/100 WBC (Bld) 0 % Normal 0-2 [facility] Comment on above: Performed By: #### S ED, PRCAL, CDP, BMPX #### [facility] [address] [place] [address] [phone] Belt Worker: Amador Lopez MD Eosinophils (Bld) [#/Vol] 0.10 10*3/uL Normal 0.00-0.4 4 [facility] Comment on above: Performed By: #### S ED, PRCAL, CDP, BMPX #### [facility] [address] [place] [address] Belt Worker: Amador Lopez MD Eosinophils/100 WBC (Bld) 1 % Normal 1-4 [facility] Comment on above: Performed By: #### S ED, PRCAL, CDP, BMPX #### [place] [address] Belt Worker: Amador Lopez MD Erythrocyte distribution width (RBC) [Ratio] 13.6 % Normal 11.8-14.4 [facility] Comment on above: Performed By: #### S ED, PRCAL, CDP, BMPX #### [place] [address] Belt Worker: Amador Lopez MD Hematocrit (Bld) [Volume fraction] 37.2 % Low 40.7-50.3 [facility] Comment on above: Performed By: #### S ED, PRCAL, CDP, BMPX #### [facility] [address] [place] [address] Belt Worker: Amador Lopez MD Hemoglobin (Bld) [Mass/Vol] 12.4 g/dL Low 13.0-17.0 [facility] Comment on above: Performed By: #### S ED, PRCAL, CDP, BMPX #### [facility] [address] [place] [address] Belt Worker: Amador Lopez MD Immature granulocytes/100 WBC (Bld) 2 % High 0 [facility] Comment on above: Performed By: #### S ED, PRCAL, CDP, BMPX #### [facility] [address] [place] [address] [phone] Belt Worker: Amador Lopez MD Lymphocytes (Bld) [#/Vol] 1.57 10*3/uL Normal 1.10-3.7 0 [facility] Comment on above: Performed By: #### S ED, PRCAL, CDP, BMPX #### [address] [address] Belt Worker: Amador Lopez MD Lymphocytes/100 WBC (Bld) 22 % Low 24-43 [facility] Comment on above: Performed By: #### S ED, PRCAL, CDP, BMPX #### [place] [address] Belt Worker: Amador Lopez MD MCH (RBC) [Entitic mass] 31.6 pg Normal 25.2-33.5 [facility] Comment on above: Performed By: #### S ED, PRCAL, CDP, BMPX #### [address] [address] Belt Worker: Amador Lopez MD MCHC (RBC) [Mass/Vol] 33.3 g/dL Normal 28.4-34.8 [facility] Comment on above: Performed By: #### S ED, PRCAL, CDP, BMPX #### [address] [address] Belt Worker: Amador Lopez MD MCV (RBC) [Entitic vol] 94.7 fL Normal 82.6-102.9 [facility] Comment on above: Performed By: #### S ED, PRCAL, CDP, BMPX #### [facility] [address] [place] [address] Belt Worker: Amador Lopez MD Monocytes (Bld) [#/Vol] 1.03 10*3/uL Normal 0.10-1.20 [facility] Comment on above: Performed By: #### S ED, PRCAL, CDP, BMPX #### [facility] [address] [place] [address] Belt Worker: Amador Lopez MD Monocytes/100 WBC (Bld) 14 % High 3-12 [facility] Comment on above: Performed By: #### S ED, PRCAL, CDP, BMPX #### [facility] [address] [place] [id number] Belt Worker: Amador Lopez MD Neutrophil (Seg) 61 % Normal 36-65 [facility] Comment on above: Performed By: #### S ED, PRCAL, CDP, BMPX #### [address] [address] Belt Worker: Amador Lopez MD NRBC Automated 0.0 per 100 WBC Normal 0.0 [facility] Comment on above: Performed By: #### S ED, PRCAL, CDP, BMPX #### [facility] [address] [place] [phone] Belt Worker: Amador Lopez MD Platelet mean volume (Bld) [Entitic vol] 10.2 fL Normal 8.1-13.5 [facility] Comment on above: Performed By: #### S ED, PRCAL, CDP, BMPX #### [facility] [address] [place] [address] [phone] Belt Worker: Amador Lopez MD Platelets (Bld) [#/Vol] 234 10*3/uL Normal 138-453 [facility] Comment on above: Performed By: #### S ED, PRCAL, CDP, BMPX #### [facility] [address] [place] [id number] Belt Worker: Amador Lopez MD RBC (Bld) [#/Vol] 3.93 10*6/uL Low 4.21-5.77 [facility] Comment on above: Performed By: #### S ED, PRCAL, CDP, BMPX #### [facility] [address] [place] [address] Belt Worker: Amador Lopez MD WBC (Bld) [#/Vol] 7.3 10*3/uL Normal 3.5-11.3 [facility] Comment on above: Performed By: #### S ED, PRCAL, CDP, BMPX #### [facility] [address] [place] [address] Belt Worker: Amador Lopez MD K (Potassium)on 08-11-2022 Potassium [Moles/Vol] 3.7 mmol/L Normal 3.7-5.3 [facility] Comment on above: Performed By: #### B MPX #### [facility] [address] [place] [address] Belt Worker: Amador Lopez MD Procalcitoninon 08-11-2022 Procalcitonin 0.08 ng/mL Normal <0.09 [facility] Comment on above: Result Comment: Suspected Sepsis: [...] entered into the Change in Procalcitonin Calculator (www.flnraa-khp-bxmcpqbsiu.com) to determine the patient's Mortality Risk Prognosis In healthy neonates, plasma Procalcitonin (PCT) concentrations increase gradually after , reaching peak values at about 24 hours of age then decrease to normal values below 0.5 ng/mL by 48-72 hours of age. Performed By: #### S ED, PRCAL, CDP, BMPX #### [facility] [address] [place] [address] Belt Worker: Amador Lopez MD Sedimentation Rateon 022 Sedimentation Rate 39 mm/Hr High 0-20 [facility] Comment on above: Performed By: #### S ED, PRCAL, CDP, BMPX #### [facility] [place] [address] Belt Worker: Amador Lopez MD B12/Folate Panelon Cobalamin (Vitamin B12) [Mass/Vol] 356 pg/mL Normal 232-1245 [facility] Comment on above: Performed By: #### F EBGrace FERI #### [facility] [address] [place] [address] Belt Worker: Amador Lopez MD Folic Acid 9.9 ng/mL Normal >4.8 [facility] Comment on above: Performed By: #### F EBC, FERI #### [facility] [address] [place] [address]15 Belt Worker: Amador Lopez MD Basic Metab w/rfx MGon 08-10 (cont.) Normal [facility] Comment on above: Result Comment: Aver age GFR for 60-69 years old: 85 mL/min/1.73sq m Chronic Kidney Disease: <60 mL/min/1.73sq m Kidney failure: <15 mL/min/1.73sq m eGFR calculated using average adult body mass. Additional eGFR calculator available at: http://www.[employer].com/multiple_crcl_2012.htm Performed By: #### B MPX #### [facility] [address] [place] [address] Belt Worker: Amador Lopez MD Anion gap [Moles/Vol] 14 mmol/L Normal 9-17 [facility] Comment on above: Performed By: #### B MPX #### [facility] [address] [place] [address] Belt Worker: Amador Lopez MD Calcium [Mass/Vol] 8.4 mg/dL Low 8.6-10.4 [facility] Comment on above: Performed By: #### B MPX #### [address] [address] Belt Worker: Amador Lopez MD Chloride [Moles/Vol] 105 mmol/L Normal 98-107 [facility] Comment on above: Performed By: #### B MPX #### [address] [address] Belt Worker: Amador Lopez MD CO2 [Moles/Vol] 19 mmol/L Low 20-31 [facility] Comment on above: Performed By: #### B MPX #### [address] [address] Belt Worker: Amador Lopez MD Creatinine [Mass/Vol] 0.55 mg/dL Low 0.70-1.20 [facility] Comment on above: Performed By: #### B MPX #### [address] [address] Belt Worker: Amador Lopez MD GFR, Amer >60 Normal >60 [facility] Comment on above: Performed By: #### B MPX #### [address] [address] Belt Worker: Amador Lopez MD GFR,non Amer >60 Normal >60 [facility] Comment on above: Performed By: #### B MPX #### [address] [address] Belt Worker: Amador Lopez MD Glucose [Mass/Vol] 83 mg/dL Normal 70-99 [facility] Comment on above: Performed By: #### B MPX #### [address] [address] Belt Worker: Amador Lopez MD Potassium [Moles/Vol] 4.6 mmol/L Normal 3.7-5.3 [facility] Comment on above: Result Comment: SPEC IMEN SLIGHTLY HEMOLYZED, RESULTS MAY BE ADVERSELY AFFECTED. Performed By: #### B MPX #### [address] [address] Belt Worker: Amador Lopez MD Sodium [Moles/Vol] 138 mmol/L Normal 135-144 [facility] Comment on above: Performed By: #### B MPX #### [address] [address] Belt Worker: Amador Lopez MD Urea nitrogen [Mass/Vol] 13 mg/dL Normal 8-23 [facility] Comment on above: Performed By: #### B MPX #### [address] [address] Belt Worker: Amador Lopez MD C-Reactive Proteinon 022 CRP [Mass/Vol] 108.3 mg/L High 0.0-5.0 [facility] Comment on above: Performed By: #### F EBGrace, FLORINA #### [address] [address] Belt Worker: Amador Lopez MD CBC with Diffon 08-10-2022 Abs. Basophil <0.03 Normal 0.00-0.20 [facility] Comment on above: Performed By: #### B MPX #### [address] [address] Belt Worker: Amador Lopez MD Abs.Imm.Granulocyte 0.11 k/uL Normal 0.00-0.30 [facility] Comment on above: Performed By: #### B MPX #### [address] [address] Belt Worker: Amador Lopez MD Abs.Neutrophil (Seg) 6.26 k/uL Normal 1.50-8.10 [facility] Comment on above: Performed By: #### B MPX #### [address] [address] Belt Worker: Amador Lopez MD Basophils/100 WBC (Bld) 0 % Normal 0-2 [facility] Comment on above: Performed By: #### B MPX #### [address] [address] Belt Worker: Amador Lopez MD Eosinophils (Bld) [#/Vol] 0.07 10*3/uL Normal 0.00-0.4 4 [facility] Comment on above: Performed By: #### B MPX #### [address] [address] Belt Worker: Amador Lopez MD Eosinophils/100 WBC (Bld) 1 % Normal 1-4 [facility] Comment on above: Performed By: #### B MPX #### [address] [address] Belt Worker: Amador Lopez MD Erythrocyte distribution width (RBC) [Ratio] 13.9 % Normal 11.8-14.4 [facility] Comment on above: Performed By: #### B MPX #### [address] [address] Belt Worker: Amador Lopez MD Hematocrit (Bld) [Volume fraction] 40.4 % Low 40.7-50.3 [facility] Comment on above: Performed By: #### B MPX #### [address] [address] Belt Worker: Amador Lopez MD Hemoglobin (Bld) [Mass/Vol] 13.6 g/dL Normal 13.0-17.0 [facility] Comment on above: Performed By: #### B MPX #### [address] [address] Belt Worker: Amador Lopez MD Immature granulocytes/100 WBC (Bld) 1 % High 0 [facility] Comment on above: Performed By: #### B MPX #### [address] [address] Belt Worker: Amador Lopez MD Lymphocytes (Bld) [#/Vol] 1.02 10*3/uL Low 1.10-3.7 0 [facility] Comment on above: Performed By: #### B MPX #### [address] [address] Belt Worker: Amador Lopez MD Lymphocytes/100 WBC (Bld) 12 % Low 24-43 [facility] Comment on above: Performed By: #### B MPX #### [address] [address] Belt Worker: Amador Lopez MD MCH (RBC) [Entitic mass] 31.9 pg Normal 25.2-33.5 [facility] Comment on above: Performed By: #### B MPX #### [address] [address] Belt Worker: Amador Lopez MD MCHC (RBC) [Mass/Vol] 33.7 g/dL Normal 28.4-34.8 [facility] Comment on above: Performed By: #### B MPX #### [address] [address] Belt Worker: Amador Lopez MD MCV (RBC) [Entitic vol] 94.6 fL Normal 82.6-102.9 [facility] Comment on above: Performed By: #### B MPX #### [address] [address] Belt Worker: Amador Lopez MD Monocytes (Bld) [#/Vol] 1.33 10*3/uL High 0.10-1.20 [facility] Comment on above: Performed By: #### B MPX #### [address] [address] Belt Worker: Amador Lopez MD Monocytes/100 WBC (Bld) 15 % High 3-12 [facility] Comment on above: Performed By: #### B MPX #### [address] [address] Belt Worker: Amador Lopez MD Neutrophil (Seg) 71 % High 36-65 [facility] Comment on above: Performed By: #### B MPX #### [address] [address] Belt Worker: Amador Lopez MD NRBC Automated 0.0 per 100 WBC Normal 0.0 [facility] Comment on above: Performed By: #### B MPX #### [address] [address] Belt Worker: Amador Lopez MD Platelet Count See Reflexed IPF Result Normal 138-453 [facility] Comment on above: Performed By: #### B MPX #### [address] [address] Belt Worker: Amador Lopez MD RBC (Bld) [#/Vol] 4.27 10*6/uL Normal 4.21-5.77 [facility] Comment on above: Performed By: #### B MPX #### [address] [address] Belt Worker: Amador Lopez MD WBC (Bld) [#/Vol] 8.8 10*3/uL Normal 3.5-11.3 [facility] Comment on above: Performed By: #### B MPX #### [address] [address] Belt Worker: Amador Lopez MD Creatine Kinaseon 08-10-2022 CK [Catalytic activity/Vol] 206 U/L Normal 39-308 [facility] Comment on above: Performed By: #### F EBC, FERI #### [address] [address] Belt Worker: Amador Lopez MD Ferritinon 08-10-2022 Ferritin [Mass/Vol] 431 ng/mL High 30-400 [facility] Comment on above: Performed By: #### F EBC, FERI #### [facility] [address] [place] [address] Belt Worker: Amador Lopez MD Iron Binding Cap.on 08-10-20 22 % Fe Saturation 21 % Normal 20-55 [facility] Comment on above: Performed By: #### F EBC, FERI #### [facility] [address] [place] [address] Belt Worker: Amador Lopez MD Iron [Mass/Vol] 35 ug/dL Low 59-158 [facility] Comment on above: Performed By: #### F EBC, FERI #### [facility] [address] [place] [address] Belt Worker: Amador Lopez MD Total Fe Binding Cap 163 ug/dL Low 250-450 [facility] Comment on above: Performed By: #### F EBC, FERI #### [facility] [address] [place] [address] Belt Worker: Amador Lopez MD Unbound Fe Bind Cap 128 ug/dL Normal 112-347 [facility] Comment on above: Performed By: #### F EBC, FERI #### [address] [address] Belt Worker: Amador Lopez MD PLT, Immature Fract.on 08-10 Platelet, Fluoresc. 219 k/uL Normal 138-453 [facility] Comment on above: Performed By: #### B MPX #### [address] [address] Belt Worker: Amador Lopez MD PLT, Immature Fract. 4.1 % Normal 1.1-10.3 [facility] Comment on above: Performed By: #### B MPX #### [address] [address] Belt Worker: Amador Lopez MD Specimen Rejectionon Reason for rejection Unable to perform testing: Specimen quantity not sufficient. Normal [facility] Comment on above: Performed By: #### B MPX #### [address] [address] Belt Worker: Amador Lopez MD Source of sample .BLOOD Normal [facility] Comment on above: Performed By: #### B MPX #### [address] [address] Belt Worker: Amador Lopez MD Test ordered [id number] Normal [facility] Comment on above: Performed By: #### B MPX #### [address] [address] Belt Worker: Amador Lopez MD Thyroxine, Freeon 08-10-2022 Thyroxine, Free 0.91 ng/dL Low 0.93-1.70 [facility] Comment on above: Performed By: #### F EBC, FERI #### [address] [id number] Belt Worker: Amador Lopez MD Ammoniaon 08-09-2022 Ammonia (P) [Moles/Vol] 35 umol/L Normal 16-60 [facility] Comment on above: Performed By: #### B MPX #### [address] [address] Belt Worker: Amador Lopez MD Basic Metab w/rfx MGon 08-09 (cont.) Normal [facility] Comment on above: Result Comment: Aver age GFR for 60-69 years old: 85 mL/min/1.73sq m Chronic Kidney Disease: <60 mL/min/1.73sq m Kidney failure: <15 mL/min/1.73sq m eGFR calculated using average adult body mass. Additional eGFR calculator available at: http://www.[employer]/multiple_crcl_2011.htm Performed By: #### B MPX #### [address] [address] Belt Worker: Amador Lopez MD Anion gap [Moles/Vol] 14 mmol/L Normal 9-17 [facility] Comment on above: Performed By: #### B MPX #### [address] [address] Belt Worker: Amador Lopez MD Calcium [Mass/Vol] 8.8 mg/dL Normal 8.6-10.4 [facility] Comment on above: Performed By: #### B MPX #### [address] [address] Belt Worker: Amador Lopez MD Chloride [Moles/Vol] 104 mmol/L Normal 98-107 [facility] Comment on above: Performed By: #### B MPX #### [address] [address] Belt Worker: Amador Lopez MD CO2 [Moles/Vol] 18 mmol/L Low 20-31 [facility] Comment on above: Performed By: #### B MPX #### [address] [address] Belt Worker: Amador Lopez MD Creatinine [Mass/Vol] 0.55 mg/dL Low 0.70-1.20 [facility] Comment on above: Performed By: #### B MPX #### [address] [address] Belt Worker: Amador Lopez MD GFR, Amer >60 Normal >60 [facility] Comment on above: Performed By: #### B MPX #### [address] [address] Belt Worker: Amador Lopez MD GFR,non Amer >60 Normal >60 [facility] Comment on above: Performed By: #### B MPX #### [address] [address] Belt Worker: Amador Lopez MD Glucose [Mass/Vol] 80 mg/dL Normal 70-99 [facility] Comment on above: Performed By: #### B MPX #### [address] [address] Belt Worker: Amador Lopez MD Potassium [Moles/Vol] 4.5 mmol/L Normal 3.7-5.3 [facility] Comment on above: Performed By: #### B MPX #### [address] [address] Belt Worker: Amador Lopez MD Sodium [Moles/Vol] 136 mmol/L Normal 135-144 [facility] Comment on above: Performed By: #### B MPX #### [address] [address] Belt Worker: Amador Lopez MD Urea nitrogen [Mass/Vol] 7 mg/dL Low 8-23 [facility] Comment on above: Performed By: #### B MPX #### [place] [address] Belt Worker: Amador Lopez MD Basic Metabolic Profon 08-09 (cont.) Normal [facility] Comment on above: Result Comment: Aver age GFR for 60-69 years old: 85 mL/min/1.73sq m Chronic Kidney Disease: <60 mL/min/1.73sq m Kidney failure: <15 mL/min/1.73sq m eGFR calculated using average adult body mass. Additional eGFR calculator available at: http://www.[employer]/multiple_crcl_2011.htm Performed By: #### B MPX #### [place] [address] Belt Worker: Amador Lopez MD Anion gap [Moles/Vol] 12 mmol/L Normal 9-17 [facility] Comment on above: Performed By: #### B MPX #### [place] [address] Belt Worker: Amador Lopez MD Calcium [Mass/Vol] 8.5 mg/dL Low 8.6-10.4 [facility] Comment on above: Performed By: #### B MPX #### [facility] [address] [place] [address] Belt Worker: Amador Lopez MD Chloride [Moles/Vol] 103 mmol/L Normal 98-107 [facility] Comment on above: Performed By: #### B MPX #### [place] [address] Belt Worker: Amador Lopez MD CO2 [Moles/Vol] 21 mmol/L Normal 20-31 [facility] Comment on above: Performed By: #### B MPX #### [address] [address] Belt Worker: Amador Lopez MD Creatinine [Mass/Vol] 0.56 mg/dL Low 0.70-1.20 [facility] Comment on above: Performed By: #### B MPX #### [address] [address] Belt Worker: Amador Lopez MD GFR, Amer >60 Normal >60 [facility] Comment on above: Performed By: #### B MPX #### [address] [address] Belt Worker: Amador Lopez MD GFR,non Amer >60 Normal >60 [facility] Comment on above: Performed By: #### B MPX #### [address] [address] Belt Worker: Amador Lopez MD Glucose [Mass/Vol] 95 mg/dL Normal 70-99 [facility] Comment on above: Performed By: #### B MPX #### [address] [address] Belt Worker: Amador Lopez MD Potassium [Moles/Vol] 4.0 mmol/L Normal 3.7-5.3 [facility] Comment on above: Performed By: #### B MPX #### [address] [address] Belt Worker: Amador Lopez MD Sodium [Moles/Vol] 136 mmol/L Normal 135-144 [facility] Comment on above: Performed By: #### B MPX #### [address] [address] Belt Worker: Amador Lopez MD Urea nitrogen [Mass/Vol] 7 mg/dL Low 8-23 [facility] Comment on above: Performed By: #### B MPX #### [address] [address] Belt Worker: Amador Lopez MD C-Reactive Proteinon 022 CRP [Mass/Vol] 49.3 mg/L High 0.0-5.0 [facility] Comment on above: Performed By: #### B MPX #### [address] [address] Belt Worker: Amador Lopez MD CBC with Diffon 08-09-2022 Abs. Basophil 0.04 k/uL Normal 0.00-0.20 [facility] Comment on above: Performed By: #### F MIRTA FERI #### [place] [address] Belt Worker: Amador Lopez MD Abs.Imm.Granulocyte 0.11 k/uL Normal 0.00-0.30 [facility] Comment on above: Performed By: #### F MIRTA FERI #### [place] [address] Belt Worker: Amador Lopez MD Abs.Neutrophil (Seg) 6.73 k/uL Normal 1.50-8.10 [facility] Comment on above: Performed By: #### F MIRTA FERI #### [address] [address] Belt Worker: Amador Lopez MD Basophils/100 WBC (Bld) 0 % Normal 0-2 [facility] Comment on above: Performed By: #### F MIRTA FERI #### [address] [address] Belt Worker: Amador Lopez MD Eosinophils (Bld) [#/Vol] 0.03 10*3/uL Normal 0.00-0.4 4 [facility] Comment on above: Performed By: #### F EBC, FERI #### [facility] [address] [place] [address] Belt Worker: Amador Lopez MD Eosinophils/100 WBC (Bld) 0 % Low 1-4 [facility] Comment on above: Performed By: #### F EBC, FERI #### [facility] [address] [place] [address] Belt Worker: Amador Lopez MD Erythrocyte distribution width (RBC) [Ratio] 13.5 % Normal 11.8-14.4 [facility] Comment on above: Performed By: #### F EBC, FERI #### [facility] [address] [place] [address] Belt Worker: Amador Lopez MD Hematocrit (Bld) [Volume fraction] 41.2 % Normal 40.7-50.3 [facility] Comment on above: Performed By: #### F EBC, FERI #### [facility] [address] [place] [address] Belt Worker: Amador Lopez MD Hemoglobin (Bld) [Mass/Vol] 14.3 g/dL Normal 13.0-17.0 [facility] Comment on above: Performed By: #### F EBC, FERI #### [facility] [address] [place] [address] Belt Worker: Amador Lopez MD Immature granulocytes/100 WBC (Bld) 1 % High 0 [facility] Comment on above: Performed By: #### F EBC, FERI #### [facility] [address] [place] [address] Belt Worker: Amador Lopez MD Lymphocytes (Bld) [#/Vol] 1.23 10*3/uL Normal 1.10-3.7 0 [facility] Comment on above: Performed By: #### F EBC, FERI #### [address] [address] Belt Worker: Amador Lopez MD Lymphocytes/100 WBC (Bld) 13 % Low 24-43 [facility] Comment on above: Performed By: #### F EBC, FERI #### [address] [address] Belt Worker: Amador Lopez MD MCH (RBC) [Entitic mass] 32.5 pg Normal 25.2-33.5 [facility] Comment on above: Performed By: #### F RAVINDER KIRBYI #### [address] [address] Belt Worker: Amador Lopez MD MCHC (RBC) [Mass/Vol] 34.7 g/dL Normal 28.4-34.8 [facility] Comment on above: Performed By: #### F EBGrace FERI #### [address] [address] Belt Worker: Amador Loepz MD MCV (RBC) [Entitic vol] 93.6 fL Normal 82.6-102.9 [facility] Comment on above: Performed By: #### F EBGrace FERI #### [place] [address] Belt Worker: Amador Lopez MD Monocytes (Bld) [#/Vol] 1.37 10*3/uL High 0.10-1.20 [facility] Comment on above: Performed By: #### F EBGrace FERI #### [address] [address] Belt Worker: Amador Lopez MD Monocytes/100 WBC (Bld) 14 % High 3-12 [facility] Comment on above: Performed By: #### F EBGrace FERI #### [address] [address] Belt Worker: Amador Lopez MD Neutrophil (Seg) 72 % High 36-65 [facility] Comment on above: Performed By: #### F EBC, FERI #### [address] [address] Belt Worker: Amador Lopez MD NRBC Automated 0.0 per 100 WBC Normal 0.0 [facility] Comment on above: Performed By: #### F EBC, FERI #### [address] [address] Belt Worker: Amador Lopez MD Platelet mean volume (Bld) [Entitic vol] 10.3 fL Normal 8.1-13.5 [facility] Comment on above: Performed By: #### F EBGrace FERI #### [address] [address] Belt Worker: Amador Lopez MD Platelets (Bld) [#/Vol] 261 10*3/uL Normal 138-453 [facility] Comment on above: Performed By: #### F EBGrace FERI #### [address] [address] Belt Worker: Amador Lopez MD RBC (Bld) [#/Vol] 4.40 10*6/uL Normal 4.21-5.77 [facility] Comment on above: Performed By: #### F EBC, FERI #### [address] [address] Belt Worker: Amador Lopez MD WBC (Bld) [#/Vol] 9.5 10*3/uL Normal 3.5-11.3 [facility] Comment on above: Performed By: #### F EBC FERI #### [address] [address] Belt Worker: Amador Lopez MD Abs. Basophil 0.04 k/uL Normal 0.00-0.20 [facility] Comment on above: Performed By: #### B MPX #### [address] [address] Belt Worker: Amador Lopez MD Abs. Eosinophil <0.03 Normal 0.00-0.44 [facility] Comment on above: Performed By: #### B MPX #### [address] [address] Belt Worker: Amador Lopez MD Abs.Imm.Granulocyte 0.11 k/uL Normal 0.00-0.30 [facility] Comment on above: Performed By: #### B MPX #### [place] [address] Belt Worker: Amador Lopez MD Abs.Neutrophil (Seg) 6.52 k/uL Normal 1.50-8.10 [facility] Comment on above: Performed By: #### B MPX #### [place] [address] Belt Worker: Amador Lopez MD Basophils/100 WBC (Bld) 1 % Normal 0-2 M [facility] Comment on above: Performed By: #### B MPX #### [address] [address] Belt Worker: Amador Lopez MD Eosinophils/100 WBC (Bld) 0 % Low 1-4 [facility] Comment on above: Performed By: #### B MPX #### [address] [address] Belt Worker: Amador Lopez MD Erythrocyte distribution width (RBC) [Ratio] 13.5 % Normal 11.8-14.4 [facility] Comment on above: Performed By: #### B MPX #### [address] [address] Belt Worker: Amador Lopez MD Hematocrit (Bld) [Volume fraction] 39.8 % Low 40.7-50.3 [facility] Comment on above: Performed By: #### B MPX #### [address] [address] Belt Worker: Amador Lopez MD Hemoglobin (Bld) [Mass/Vol] 13.6 g/dL Normal 13.0-17.0 [facility] Comment on above: Performed By: #### B MPX #### [address] [address] Belt Worker: Amador Lopez MD Immature granulocytes/100 WBC (Bld) 1 % High 0 [facility] Comment on above: Performed By: #### B MPX #### [address] [address] Belt Worker: Amador Lopez MD Lymphocytes (Bld) [#/Vol] 1.07 10*3/uL Low 1.10-3.7 0 [facility] Comment on above: Performed By: #### B MPX #### [address] [address] Belt Worker: Amador Lopez MD Lymphocytes/100 WBC (Bld) 12 % Low 24-43 [facility] Comment on above: Performed By: #### B MPX #### [address] [address] Belt Worker: Amador Lopez MD MCH (RBC) [Entitic mass] 31.8 pg Normal 25.2-33.5 [facility] Comment on above: Performed By: #### B MPX #### [address] [address] Belt Worker: Amador Lopez MD MCHC (RBC) [Mass/Vol] 34.2 g/dL Normal 28.4-34.8 [facility] Comment on above: Performed By: #### B MPX #### [address] [address] Belt Worker: Amador Lopez MD MCV (RBC) [Entitic vol] 93.0 fL Normal 82.6-102.9 [facility] Comment on above: Performed By: #### B MPX #### [address] [address] Belt Worker: Amador Lopez MD Monocytes (Bld) [#/Vol] 1.06 10*3/uL Normal 0.10-1.20 [facility] Comment on above: Performed By: #### B MPX #### [place] [address] Belt Worker: Amador Lopez MD Monocytes/100 WBC (Bld) 12 % Normal 3-12 [facility] Comment on above: Performed By: #### B MPX #### [address] [address] Belt Worker: Amador Lopez MD Neutrophil (Seg) 74 % High 36-65 [facility] Comment on above: Performed By: #### B MPX #### [place] [address] Belt Worker: Amador Lopez MD NRBC Automated 0.0 per 100 WBC Normal 0.0 [facility] Comment on above: Performed By: #### B MPX #### [address] [address] Belt Worker: Amador Lopez MD Platelet mean volume (Bld) [Entitic vol] 10.1 fL Normal 8.1-13.5 [facility] Comment on above: Performed By: #### B MPX #### [facility] [place] [address] Belt Worker: Amador Lopez MD Platelets (Bld) [#/Vol] 244 10*3/uL Normal 138-453 [facility] Comment on above: Performed By: #### B MPX #### [facility] [place] [address] Belt Worker: Amador Lopez MD RBC (Bld) [#/Vol] 4.28 10*6/uL Normal 4.21-5.77 [facility] Comment on above: Performed By: #### B MPX #### [facility] [address] [place] [address] Belt Worker: Amador Lopez MD WBC (Bld) [#/Vol] 8.8 10*3/uL Normal 3.5-11.3 [facility] Comment on above: Performed By: #### B MPX #### [facility] [address] [place] [address] Belt Worker: Amador Lopez MD ELECTROENCEPHALOGRAMon 08-[address] [id number] ELECTROENCEPHALOGRA M REPORT PATIENT NAME: PRESTON CARRASQUILLO : 1955 MED REC NO: [id number] ROOM: 0130 ACCOUNT NO: [id number] ADMIT DATE: 08/08/2022 PROVIDER: Duane Braga MD [...] is seen. DUANE BRAGA MD /[id number] Doc#: [id number] CC: Normal [facility] Lactic Acidon 08-09-2022 Lactic Acid,Whole Bl 1.2 mmol/L Normal 0.7-2.1 [facility] Comment on above: Performed By: #### B MPX #### [facility] [address] [place] [address] Belt Worker: Amador Lopez MD Lactic Acid,Whole Bl 2.2 mmol/L High 0.7-2.1 [facility] Comment on above: Performed By: #### B MPX #### [facility] [address] [place] [address] Belt Worker: Amador Lopez MD Magnesiumon 08-09-2022 Magnesium [Mass/Vol] 2.0 mg/dL Normal 1.6-2.6 [facility] Comment on above: Performed By: #### B MPX #### [facility] [address] [place] [address] Belt Worker: Amador Lopez MD Procalcitoninon 08-09-2022 Procalcitonin 0.06 ng/mL Normal <0.09 [facility] Comment on above: Result Comment: Suspected Sepsis: [...] entered into the Change in Procalcitonin Calculator ([email or web address] Solar) to determine the patient's Mortality Risk Prognosis In healthy neonates, plasma Procalcitonin (PCT) concentrations increase gradually after , reaching peak values at about 24 hours of age then decrease to normal values below 0.5 ng/mL by 48-72 hours of age. Performed By: #### B MPX #### [facility] [address] [place] [address] Belt Worker: Amador Lopez MD Specimen Rejectionon 022 Reason for rejection Unable to perform testing: Specimen hemolyzed. Normal [facility] Comment on above: Performed By: #### S ED, PRCAL, CDP, BMPX #### [facility] [address] [place] [address] Belt Worker: Amador Lopez MD Source of sample .BLOOD Normal [facility] Comment on above: Performed By: #### S ED, PRCAL, CDP, BMPX #### [facility] [address] [place] [address] Belt Worker: Amador Lopez MD Test ordered BMPX [facility] Comment on above: Performed By: #### S ED, PRCAL, CDP, BMPX #### [facility] [address] [place] [address] Belt Worker: Amador Lopez MD Thyroid Stim. Horm.on 2021 Thyroid Stim. Horm. 3.57 uIU/mL Normal 0.30-5.00 [facility] Comment on above: Performed By: #### B MPX #### [address] [address] Belt Worker: Amador Lopez MD Tox Scr, Bld, EDon Acetaminophen [Mass/Vol] ug/mL Low 10-30 [facility] Comment on above: Performed By: #### B MPX #### [address] [address] Belt Worker: Amador Lopez MD Salicylate <1 Low 3-10 [facility] Comment on above: Performed By: #### B MPX #### [address] [address] Belt Worker: Amador Lopez MD Ethanol [Mass/Vol] mg/dL Normal <10 [facility] Comment on above: Performed By: #### B MPX #### [address] [address] Belt Worker: Amador Lopez MD Ethanol percent <0.010 Normal <0.010 [facility] Comment on above: Performed By: #### B MPX #### [address] [address] Belt Worker: Amador Lopez MD Toxic Tricyclic Sc,Bl Negative Normal NEG [facility] Comment on above: Performed By: #### B MPX #### [address] [address] Belt Worker: Amador Lopez MD UA w/Reflex Cultureon 2021 Bilirubin, SemiQt,Ur Negative Normal NEG [facility] Comment on above: Performed By: #### F EBC, FERI #### [facility] [address] [place] [address] Belt Worker: Amador Lopez MD Blood, Urine Negative Normal NEG [facility] Comment on above: Performed By: #### F EBC, FERI #### [facility] [address] [place] [address] Belt Worker: Amador Lopez MD Clarity (U) Clear Normal CLEAR [facility] Comment on above: Performed By: #### F EBC, FERI #### [facility] [address] [place] [address] Belt Worker: Amador Lopez MD Color (U) Yellow Normal YEL [facility] Comment on above: Performed By: #### F EBC, FERI #### [facility] [address] [place] [address] Belt Worker: Amador Lopez MD Comment Microscopic exam not performed based on chemical results unless requested in Normal [facility] Comment on above: Result Comment: orig inal order. Performed By: #### F EBC, FERI #### [facility] [address] [place] [address] Belt Worker: Amador Lopez MD Glucose Ql (U) Negative Normal NEG [facility] Comment on above: Performed By: #### F EBC, FERI #### [facility] [address] [place] [address] Belt Worker: Amador Lopez MD Ketones Ql (U) SMALL Abnormal NEG [facility] Comment on above: Performed By: #### F EBC, FERI #### [facility] [address] [place] [address] Belt Worker: Amador Lopez MD Leukocyte esterase Test strip Ql (U) Negative Normal NEG [facility] Comment on above: Performed By: #### F EBGrace FERI #### [facility] [place] [address] Belt Worker: Amador Lopez MD Nitrite,Ur Negative Normal NEG [facility] Comment on above: Performed By: #### F EBGrace FERI #### [facility] [address] [place] [address] Belt Worker: Amador Lopez MD PH,Ur 6.5 Normal 5.0-8.0 [facility] Comment on above: Performed By: #### F EBGrace FERI #### [facility] [address] [place] [address] Belt Worker: Amador Lopez MD Protein Ql (U) Negative Normal NEG [facility] Comment on above: Performed By: #### F MIRTA FERI #### [facility] [address] [place] [address] Belt Worker: Amador Lopez MD Spec. [place],Ur 1.046 High 1.005-1.030 [facility] Comment on above: Performed By: #### F EBGrace FERI #### [facility] [address] [place] [address] Belt Worker: Amador Lopez MD Urobilinogen,Ur Normal Normal NORM [facility] Comment on above: Performed By: #### F EBGrace FERI #### [facility] [address] [place] [address] Belt Worker: Amador Lopez MD Venous Blood Gaseson 022 Body Temp. 37.0 Normal [facility] Comment on above: Performed By: #### B MPX #### [facility] [address] [place] [address] Belt Worker: Amador Lopez MD Carboxy Hgb 1.9 % Normal 0-5 [facility] Comment on above: Result Comment: Reference Range: Non-Smokers 0-2% Average Smoker 2-4% Heavy Smoker <10% Performed By: #### B MPX #### [address] [address] Belt Worker: Amador Lopez MD FIO2 INFORMATION NOT PROVIDED Normal [facility] Comment on above: Performed By: #### B MPX #### [address] [address] Belt Worker: Amador Lopez MD HCO3 (Bld) [Moles/Vol] 22.3 mmol/L Low 24-30 [facility] Comment on above: Performed By: #### B MPX #### [address] [address] Belt Worker: Amador Lopez MD Negative Base Excess 1.7 mmol/L Normal 0.0-2.0 [facility] Comment on above: Performed By: #### B MPX #### [address] [address] Belt Worker: Amador Lopez MD Oxygen saturation in Blood 96.3 % High 60.0-85.0 [facility] Comment on above: Performed By: #### B MPX #### [address] [address] Belt Worker: Amador Lopez MD pCO2 37.2 mm Hg Low 39-55 [facility] Comment on above: Performed By: #### B MPX #### [address] [address] Belt Worker: Amador Lopez MD pH (Bld) 7.395 [pH] Normal 7.320-7.420 [facility] Comment on above: Performed By: #### B MPX #### [address] [id number] Belt Worker: Amador Lopez MD pO2 85.9 mm Hg High 30-50 [facility] Comment on above: Performed By: #### B MPX #### [facility] [address] [place], [place] [phone] Belt Worker: Amador Lopez MD C-reactive proteinon 022 CRP [Mass/Vol] mg/L 0 - 5 mg/L [facility] C-reactive proteinon 022 CRP [Mass/Vol] 12.9 mg/L High 0 - 5 mg/L [facility] Interpretation and review of laboratory results Abnormal [facility] C-reactive proteinon 022 CRP [Mass/Vol] 20 mg/L High 0 - 5 mg/L [facility] Interpretation and review of laboratory results Abnormal [facility] C-reactive proteinon 022 CRP [Mass/Vol] 33.5 mg/L High 0 - 5 mg/L [facility] Interpretation and review of laboratory results Abnormal [facility] C-Reactive Proteinon 022 CRP [Mass/Vol] 37.6 mg/L High 0.0-5.0 [facility] Comment on above: Performed By: #### S ED, PRCAL, CDP, BMPX #### [facility] [address] [place], [place] [id number] Belt Worker: Amador Lopez MD C-reactive proteinon 022 CRP [Mass/Vol] 37.6 mg/L High 0 - 5 mg/L [facility] Interpretation and review of laboratory results Abnormal [facility] Basic Metabolic Panelon 06-14 Anion gap [Moles/Vol] 9 mmol/L 9 - 17 mmol/L [facility] Calcium [Mass/Vol] 9.1 mg/dL 8.6 - 10. 4 mg/dL [facility] Chloride [Moles/Vol] 97 mmol/L Low 98 - 10 7 mmol/L [facility] CO2 [Moles/Vol] 23 mmol/L 20 - 31 mmol/L [facility] Creatinine [Mass/Vol] 0.67 mg/dL Low 0.7 - 1.2 mg/dL [facility] GFR >60 60 - PI NF mL/min [facility] GFR Non- >60 60 - PINF mL/min [facility] Glucose [Mass/Vol] 95 mg/dL 70 - 99 mg/dL [facility] Interpretation and review of laboratory results Abnormal [facility] Potassium [Moles/Vol] 4.1 mmol/L 3.7 - 5.3 mmol/L [facility] Sodium [Moles/Vol] 129 mmol/L Low 135 - 144 mmol/L [facility] Urea nitrogen (BldV) [Mass/Vol] 11 mg/dL 8 - 23 mg/dL [facility] Urea nitrogen/Creatinine (Bld) [Mass ratio] 16 9 - 20 [facility] CBC with Auto Differentialon 07-04-2022 Absolute Eos # 0.05 [facility] Absolute Immature Granulocyte 0.21 [facility] Absolute Lymph # 1.40 [facility] Absolute [place] # 0.92 [facility] Basophils (Bld) [#/Vol] 0.05 10*3/uL [facility] Basophils/100 WBC (Bld) 1 % 0 - 2 % B [facility] Eosinophils/100 WBC (Bld) 1 % 1 - 4 % [facility] Hematocrit (Bld) [Volume fraction] 39.5 % Low 40.7 - 50.3 % [facility] Hemoglobin (Bld) [Mass/Vol] 13.0 g/dL 13 - 17 g/dL [facility] Immature granulocytes/100 WBC (Bld) 2 % High 0 [facility] Interpretation and review of laboratory results Abnormal [facility] Lymphocytes/100 WBC (Bld) 15 % Low 24 - 43 % [facility] MCH (RBC) [Entitic mass] 32.2 pg 25. 2 - 33.5 pg [facility] MCHC (RBC) [Mass/Vol] 32.9 g/dL 28.4 - 34.8 g/dL [facility] MCV (RBC) [Entitic vol] 97.8 fL 82.6 - 102.9 fL [facility] Monocytes/100 WBC (Bld) 10 % 3 - 12 % B [facility] NRBC Automated 0.0 0.0 per 100 WBC [facility] Platelet distribution width (Bld) [Ratio] 11.4 % Low 11.8 - 14.4 % [facility] Platelet mean volume (Bld) [Entitic vol] 9.4 fL 8.1 - 13.5 fL [facility] Platelets (Bld) [#/Vol] 329 10*3/uL [facility] RBC (Bld) [#/Vol] 4.04 10*6/uL Low 4.21 - 5.7 7 m/uL [facility] Segmented neutrophils/100 WBC (Bld) 71 % High 36 - 65 % [facility] Segs Absolute 6.69 [facility] WBC (Bld) [#/Vol] 9.3 10*3/uL [facility] CT ANKLE LEFT W CONTRASTon 0 07-04-2022 [...] osseous destruction. No acute osseous abnormality evident. [facility] RIS CONSOLIDATED EXAMINATION: CT OF THE [...] changes of the midfoot and TMT joints. [facility] Marquis Sanders MD - [...] osseous destruction. No acute osseous abnormality evident. [employer] Work Phone: Radiology Study observation (narrative) [employer] Work Phone: CT ANKLE LEFT W CONTRASTOrde red By: Marquis Masters on 07-04-2022 [employer] Work Phone: Laboratory - Chemistry and C hemistry - challengeon 07-04-2022 GFR/1.73 sq M.predicted MDRD (S/P/Bld) [Vol rate/Area] [employer] Comment on above: Average GFR for 60-6 9 years old: 85 mL/min/1.73sq m Chronic Kidney Disease: <60 mL/min/1.73sq m Kidney failure: <15 mL/min/1.73sq m eGFR calculated using average adult body mass. Additional eGFR calculator available at: http://www.[employer].LDK Solar/multiple_crcl_2011.htm Stage 1: Some kidney damage normal GFR Stage 2: Mild kidney damage GFR 60-89 Stage 3: Moderate kidney damage GFR 30-59 Stage 4: Severe kidney damage GFR 15-29 Stage 5: Severe kidney damage GFR <15 ESRD - chronic treatment by dialysis or transplant Lactic Acidon 07-04-2022 Lactate [Moles/Vol] 1 mmol/L 0.5 - 2. 2 mmol/L [facility] [employer] XR ANKLE LEFT (MIN 3 VIEWS)o n 07-04-2022 EXAMINATION: THREE XRAY VIEWS OF THE LEFT ANKLE 07/04/2022 12:12 pm COMPARISON: 06/24/2022 HISTORY: ORDERING SYSTEM PROVIDED HISTORY: pain TECHNOLOGIST PROVIDED HISTORY: pain FINDINGS: Overlying splint material degrades osseous detail. No displaced fracture demonstrated on this exam. No malalignment. Mild soft tissue swelling is noted. [facility] Jaren Gomez MD - 07/04/2022 [...] evaluation. No displaced fracture or malalignment identified. [employer] [place] Phone: Radiology Study observation (narrative) [employer] Phone: XR ANKLE LEFT (MIN 3 VIEWS)O rdered By: Jaren Michel on 07-04-2022 [employer] [place] Phone: Crystals, Fluidson 2 Crystals,Fluid Negative Normal NEG [facility] Comment on above: Result Comment: NO C RYSTALS SEEN Performed By: #### F FLORINA KIRBY #### [facility] [address] [place], [place] [phone] Belt Worker: Amador Lopez MD Fluid Cell Count and Diffon 06-27-2022 Other Cells MONOCYTES Normal [facility] Comment on above: Result Comment: The reference range and other method performance specifications have not been established for this body fluid. The test result must be integrated into the clinical context for interpretation. Performed By: #### F EBFLORINA Edwards #### [facility] [address] [place], [place] [id number] Belt Worker: Amador Lopez MD Basic Metab w/rfx MGon 06-26 (cont.) Normal [facility] Comment on above: Result Comment: Aver age GFR for 60-69 years old: 85 mL/min/1.73sq m Chronic Kidney Disease: <60 mL/min/1.73sq m Kidney failure: <15 mL/min/1.73sq m eGFR calculated using average adult body mass. Additional eGFR calculator available at: http://www.[employer]/multiple_crcl_2012.htm Performed By: #### B MPX #### [facility] [address] [place] [address] Belt Worker: Amador Lopez MD Anion gap [Moles/Vol] 8 mmol/L Low 9-17 [facility] Comment on above: Performed By: #### B MPX #### [facility] [address] [place] [address] Belt Worker: Amador Lopez MD Calcium [Mass/Vol] 8.0 mg/dL Low 8.6-10.4 [facility] Comment on above: Performed By: #### B MPX #### [facility] [address] [place] [address] Belt Worker: Amador Lopez MD Chloride [Moles/Vol] 100 mmol/L Normal 98-107 [facility] Comment on above: Performed By: #### B MPX #### [facility] [address] [place] [address] Belt Worker: Amador Lopez MD CO2 [Moles/Vol] 21 mmol/L Normal 20-31 [facility] Comment on above: Performed By: #### B MPX #### [facility] [address] [place] [address] Belt Worker: Amador Lopez MD Creatinine [Mass/Vol] 0.50 mg/dL Low 0.70-1.20 [facility] Comment on above: Performed By: #### B MPX #### [address] [address] Belt Worker: Amador Lopez MD GFR, Amer >60 Normal >60 [facility] Comment on above: Performed By: #### B MPX #### [address] [address] Belt Worker: Amador Lopez MD GFR,non Amer >60 Normal >60 [facility] Comment on above: Performed By: #### B MPX #### [facility] [address] [place] [address] Belt Worker: Amador Lopez MD Glucose [Mass/Vol] 85 mg/dL Normal 70-99 [facility] Comment on above: Performed By: #### B MPX #### [address] [address] Belt Worker: Amador Lopez MD Potassium [Moles/Vol] 4.4 mmol/L Normal 3.7-5.3 [facility] Comment on above: Performed By: #### B MPX #### [address] [address] Belt Worker: Amador Lopez MD Sodium [Moles/Vol] 129 mmol/L Low 135-144 [facility] Comment on above: Performed By: #### B MPX #### [address] [address] [address] Belt Worker: Amador Lopez MD Urea nitrogen [Mass/Vol] 18 mg/dL Normal 8-23 [facility] Comment on above: Performed By: #### B MPX #### [address] [address] Belt Worker: Amador Lopez MD Basic Metabolic Panel w/ Ref rashawn to MGon 06-26-2022 Anion gap [Moles/Vol] 8 mmol/L Low 9 - 17 mmol/L [facility] Calcium [Mass/Vol] 8.0 mg/dL Low 8.6 - 10. 4 mg/dL [facility] Chloride [Moles/Vol] 100 mmol/L 98 - 10 7 mmol/L [facility] CO2 [Moles/Vol] 21 mmol/L 20 - 31 mmol/L [facility] Creatinine [Mass/Vol] 0.5 mg/dL Low 0.7 - 1.2 mg/dL [facility] GFR >60 60 - PI NF mL/min [facility] GFR Non- >60 60 - PINF mL/min [facility] GFR/1.73 sq M.predicted MDRD (S/P/Bld) [Vol rate/Area] [facility] Comment on above: Average GFR for 60-6 9 years old: 85 mL/min/1.73sq m Chronic Kidney Disease: <60 mL/min/1.73sq m Kidney failure: <15 mL/min/1.73sq m eGFR calculated using average adult body mass. Additional eGFR calculator available at: http://www.[employer]/multiple_crcl_2012.htm Glucose [Mass/Vol] 85 mg/dL 70 - 99 mg/dL [facility] Interpretation and review of laboratory results Abnormal [facility] Potassium [Moles/Vol] 4.4 mmol/L 3.7 - 5.3 mmol/L [facility] Sodium [Moles/Vol] 129 mmol/L Low 135 - 144 mmol/L [facility] Urea nitrogen (BldV) [Mass/Vol] 18 mg/dL 8 - 23 mg/dL [facility] Cult,Aerobe/Anaerobeon 06-26 Cult,Aerobe/Anaerobe Specimen Description [...] Tetracycline <=1 SUSCEPTIBLE Trimethoprim/Sulfa <=10 SUSCEPTIBLE Susceptible [facility] Comment on above: Performed By: #### A ANC #### [address] [id number] Belt Worker: Amador Lopez MD Cult,Aerobe/Anaerobe Specimen Description .ANKLE [...] Tetracycline <=1 SUSCEPTIBLE Trimethoprim/Sulfa <=10 SUSCEPTIBLE Susceptible [facility] Comment on above: Performed By: #### A ANC #### [facility] [address] [place] [address] [id number] Belt Worker: Amador Lopez MD Cult,Bloodon 06-26-2022 Cult,Blood Specimen [...] Tetracycline <=1 SUSCEPTIBLE Trimethoprim/Sulfa <=10 SUSCEPTIBLE Susceptible [facility] Comment on above: Performed By: #### A ANC #### [place] [id number] Belt Worker: Amador Lopez MD Culture, Blood 1on 2 Bacteria identified Cx Nom (Unsp spec) Positive Abnormal [facility] Bacteria identified Cx Nom (Unsp spec) DIRECT GRAM STAIN FROM BOTTLE: GRAM POSITIVE COCCI IN CLUSTERS [facility] Bacteria identified Cx Nom (Unsp spec) Staphylococcus aureus Detected: mecA/C and MREJ Not Detected Methodology- Polymerase Chain Reaction (PCR) [facility] Bacteria identified Cx Nom (Unsp spec) STAPHYLOCOCCUS AUREUS This isolate is methicillin susceptible. Abnormal [facility] Bacteria identified Cx Nom (Unsp spec) (NOTE) Direct Gram Stain from bottle and Polymerase Chain Reaction (PCR) results called to and read back by:SEJAL Lai 06/25/22 AT 0617 [facility] Interpretation and review of laboratory results Abnormal [facility] Special Requests l hand 6ml [facility] Specimen Description .BLOOD [facility] Basic Metab w/rfx MGon 06-25 (cont.) Normal [facility] Comment on above: Result Comment: Aver age GFR for 60-69 years old: 85 mL/min/1.73sq m Chronic Kidney Disease: <60 mL/min/1.73sq m Kidney failure: <15 mL/min/1.73sq m eGFR calculated using average adult body mass. Additional eGFR calculator available at: http://www.[employer]/multiple_crcl_2012.htm Performed By: #### A ANC #### [facility] [place], [place] [id number] Belt Worker: Amador Lopez MD Anion gap [Moles/Vol] 10 mmol/L Normal 9-17 [facility] Comment on above: Performed By: #### A ANC #### [facility] [address] [place], [place] [id number] Belt Worker: Amador Lopez MD Calcium [Mass/Vol] 7.8 mg/dL Low 8.6-10.4 [facility] Comment on above: Performed By: #### A ANC #### [address] [address] Belt Worker: Amador Lopez MD Chloride [Moles/Vol] 95 mmol/L Low 98-107 [facility] Comment on above: Performed By: #### A ANC #### [address] [address] Belt Worker: Amador Lopez MD CO2 [Moles/Vol] 21 mmol/L Normal 20-31 [facility] Comment on above: Performed By: #### A ANC #### [address] [address] Belt Worker: Amador Lopez MD Creatinine [Mass/Vol] 0.54 mg/dL Low 0.70-1.20 [facility] Comment on above: Performed By: #### A ANC #### [address] [address] Belt Worker: Amador Lopez MD GFR, Amer >60 Normal >60 [facility] Comment on above: Performed By: #### A ANC #### [address] [address] Belt Worker: Amador Lopez MD GFR,non Amer >60 Normal >60 [facility] Comment on above: Performed By: #### A ANC #### [address] [address] Belt Worker: Amador Lopez MD Glucose [Mass/Vol] 137 mg/dL High 70-99 [facility] Comment on above: Performed By: #### A ANC #### [address] [address] Belt Worker: Amador Lopez MD Potassium [Moles/Vol] 4.1 mmol/L Normal 3.7-5.3 [facility] Comment on above: Performed By: #### A ANC #### [facility] [address] [place], [place] [id number] Belt Worker: Amador Lopez MD Sodium [Moles/Vol] 126 mmol/L Low 135-144 [facility] Comment on above: Performed By: #### A ANC #### [facility] [address] [place], [place] [id number] Belt Worker: Amador Lopez MD Urea nitrogen [Mass/Vol] 17 mg/dL Normal 8-23 [facility] Comment on above: Performed By: #### A ANC #### [facility] [address] [place], [place] [id number] Belt Worker: Amador Lopez MD Basic Metabolic Panel w/ Ref rashawn to MGon 06-25-2022 Anion gap [Moles/Vol] 10 mmol/L 9 - 17 mmol/L [facility] Calcium [Mass/Vol] 7.8 mg/dL Low 8.6 - 10. 4 mg/dL [email or web address] Chloride [Moles/Vol] 95 mmol/L Low 98 - 10 7 mmol/L [email or web address] CO2 [Moles/Vol] 21 mmol/L 20 - 31 mmol/L [email or web address] Creatinine [Mass/Vol] 0.54 mg/dL Low 0.7 - 1.2 mg/dL [facility] GFR >60 60 - PI NF mL/min [facility] GFR Non- >60 60 - PINF mL/min [facility] GFR/1.73 sq M.predicted MDRD (S/P/Bld) [Vol rate/Area] [facility] Comment on above: Average GFR for 60-6 9 years old: 85 mL/min/1.73sq m Chronic Kidney Disease: <60 mL/min/1.73sq m Kidney failure: <15 mL/min/1.73sq m eGFR calculated using average adult body mass. Additional eGFR calculator available at: http://www.[employer].com/multiple_crcl_2012.htm Glucose [Mass/Vol] 137 mg/dL High 70 - 99 mg/dL [facility] Potassium [Moles/Vol] 4.1 mmol/L 3.7 - 5.3 mmol/L [facility] Sodium [Moles/Vol] 126 mmol/L Low 135 - 144 mmol/L [facility] Urea nitrogen (BldV) [Mass/Vol] 17 mg/dL 8 - 23 mg/dL [facility] C-Reactive Proteinon 022 CRP [Mass/Vol] 149.4 mg/L High 0.0-5.0 [facility] Comment on above: Performed By: #### A ANC #### [facility] [place], [place] [id number] Belt Worker: Amador Lopez MD CRP [Mass/Vol] 149.4 mg/L High 0 - 5 mg/L [facility] No Panel Informationon 06-25 Interpretation and review of laboratory results Abnormal [facility] Vancomycin Level, Randomon 0 06-25-2022 Vancomycin Rm 24.9 ug/mL [facility] Comment on above: Higher trough serum vancomycin concentrations of 15-20 ug/mL are recommended for complicated infections such as bacteremia, endocarditis, osteomyelitis, meningitis, and hospital acquired pneumonia. [facility] Vancomycin,Randomon 06-25-20 22 Vancomycin 24.9 ug/mL Normal [facility] Comment on above: Result Comment: High er trough serum vancomycin concentrations of 15-20 ug/mL are recommended for complicated infections such as bacteremia, endocarditis, osteomyelitis, meningitis, and hospital acquired pneumonia. Performed By: #### A ANC #### [facility] [address] [place] [address] Belt Worker: Amador Lopez MD APTTon 06-24-2022 aPTT Coag (Bld) [Time] 28.2 s Normal 20.5-30.5 [facility] Comment on above: Result Comment: IV Heparin Therapy Range: 48.6-77.8 Performed By: #### A ANC #### [facility] [place] [address] Belt Worker: Amador Lopez MD aPTT Coag (Bld) [Time] 28.2 s [facility] Comment on above: IV Heparin Therapy Range: 48.6-77.8 Basic Metab w/rfx MGon 06-24 (cont.) Normal [facility] Comment on above: Result Comment: Aver age GFR for 60-69 years old: 85 mL/min/1.73sq m Chronic Kidney Disease: <60 mL/min/1.73sq m Kidney failure: <15 mL/min/1.73sq m eGFR calculated using average adult body mass. Additional eGFR calculator available at: http://www.[employer]/multiple_crcl_2012.htm Performed By: #### A ANC #### [address] [address] Belt Worker: Amador Lopez MD Anion gap [Moles/Vol] 12 mmol/L Normal 9-17 [facility] Comment on above: Performed By: #### A ANC #### [address] [address] Belt Worker: Amador Lopez MD Calcium [Mass/Vol] 8.2 mg/dL Low 8.6-10.4 [facility] Comment on above: Performed By: #### A ANC #### [address] [address] Belt Worker: Amador Lopez MD Chloride [Moles/Vol] 93 mmol/L Low 98-107 [facility] Comment on above: Performed By: #### A ANC #### [address] [address] Belt Worker: Amador Lopez MD CO2 [Moles/Vol] 21 mmol/L Normal 20-31 [facility] Comment on above: Performed By: #### A ANC #### [address] [address] Belt Worker: Amador Lopez MD Creatinine [Mass/Vol] 0.74 mg/dL Normal 0.70-1.20 [facility] Comment on above: Performed By: #### A ANC #### [address] [address] Belt Worker: Amador Lopez MD GFR, Amer >60 Normal >60 [facility] Comment on above: Performed By: #### A ANC #### [address] [address] Belt Worker: Amador Lopez MD GFR,non Amer >60 Normal >60 [facility] Comment on above: Performed By: #### A ANC #### [address] [address] Belt Worker: Amador Lopez MD Glucose [Mass/Vol] 88 mg/dL Normal 70-99 [facility] Comment on above: Performed By: #### A ANC #### [address] [address] Belt Worker: Amador Lopez MD Potassium [Moles/Vol] 4.6 mmol/L Normal 3.7-5.3 [facility] Comment on above: Performed By: #### A ANC #### [address] [address] Belt Worker: Amador Lopez MD Sodium [Moles/Vol] 126 mmol/L Low 135-144 [facility] Comment on above: Performed By: #### A ANC #### [address] [address] Belt Worker: Amador Lopez MD Urea nitrogen [Mass/Vol] 19 mg/dL Normal 8-23 [facility] Comment on above: Performed By: #### A ANC #### [address] [address] Belt Worker: Amadro Lopez MD Basic Metabolic Panel w/ Ref rashawn to MGon 06-24-2022 Anion gap [Moles/Vol] 12 mmol/L 9 - 17 mmol/L [facility] Calcium [Mass/Vol] 8.2 mg/dL Low 8.6 - 10. 4 mg/dL [facility] Chloride [Moles/Vol] 93 mmol/L Low 98 - 10 7 mmol/L [facility] CO2 [Moles/Vol] 21 mmol/L 20 - 31 mmol/L [facility] Creatinine [Mass/Vol] 0.74 mg/dL 0.7 - 1.2 mg/dL [facility] GFR >60 60 - PI NF mL/min [facility] GFR Non- >60 60 - PINF mL/min [facility] GFR/1.73 sq M.predicted MDRD (S/P/Bld) [Vol rate/Area] [facility] Comment on above: Average GFR for 60-6 9 years old: 85 mL/min/1.73sq m Chronic Kidney Disease: <60 mL/min/1.73sq m Kidney failure: <15 mL/min/1.73sq m eGFR calculated using average adult body mass. Additional eGFR calculator available at: http://www.[employer]/multiple_crcl_2012.htm Glucose [Mass/Vol] 88 mg/dL 70 - 99 mg/dL [facility] Potassium [Moles/Vol] 4.6 mmol/L 3.7 - 5.3 mmol/L [facility] Sodium [Moles/Vol] 126 mmol/L Low 135 - 144 mmol/L [facility] Urea nitrogen (BldV) [Mass/Vol] 19 mg/dL 8 - 23 mg/dL [facility] C-Reactive Proteinon 022 CRP [Mass/Vol] 143.4 mg/L High 0.0-5.0 [facility] Comment on above: Performed By: #### A ANC #### [facility] [address] [place] [address] Belt Worker: Amador Lopez MD CRP [Mass/Vol] 143.4 mg/L High 0 - 5 mg/L [facility] CBC with Auto Differentialon 06-24-2022 Absolute Eos # 0.03 [facility] Absolute Immature Granulocyte 0.43 High [facility] Absolute Lymph # 0.70 Low [facility] Absolute [place] # 1.32 High [facility] Basophils (Bld) [#/Vol] 0.10 10*3/uL [facility] Basophils/100 WBC (Bld) 1 % 0 - 2 % [facility] Eosinophils/100 WBC (Bld) 0 % Low 1 - 4 % [facility] Hematocrit (Bld) [Volume fraction] 43.1 % 40.7 - 50.3 % [facility] Hemoglobin (Bld) [Mass/Vol] 15.3 g/dL 13 - 17 g/dL [facility] Immature granulocytes/100 WBC (Bld) 3 % High 0 [facility] Interpretation and review of laboratory results Abnormal [facility] Lymphocytes/100 WBC (Bld) 6 % Low 24 - 43 % [facility] MCH (RBC) [Entitic mass] 33.3 pg 25. 2 - 33.5 pg [facility] MCHC (RBC) [Mass/Vol] 35.5 g/dL High 28.4 - 34.8 g/dL [facility] MCV (RBC) [Entitic vol] 93.9 fL 82.6 - 102.9 fL [facility] Monocytes/100 WBC (Bld) 11 % 3 - 12 % [facility] NRBC Automated 0.0 0.0 per 100 WBC [facility] Platelet distribution width (Bld) [Ratio] 12.0 % 11.8 - 14.4 % [facility] Platelet mean volume (Bld) [Entitic vol] 10.6 fL 8.1 - 13.5 fL [facility] Platelets (Bld) [#/Vol] 200 10*3/uL [facility] RBC (Bld) [#/Vol] 4.59 10*6/uL 4.21 - 5.7 7 m/uL [facility] Segmented neutrophils/100 WBC (Bld) 79 % High 36 - 65 % [facility] Segs Absolute 9.99 High [facility] WBC (Bld) [#/Vol] 12.6 10*3/uL High [facility] CBC with Diffon 06-24-2022 Abs. Basophil 0.10 k/uL Normal 0.00-0.20 [facility] Comment on above: Performed By: #### A ANC #### [address] [address] Belt Worker: Amador Lopez MD Abs.Imm.Granulocyte 0.43 k/uL High 0.00-0.30 [facility] Comment on above: Performed By: #### A ANC #### [place] [address] Belt Worker: Amador Lopez MD Abs.Neutrophil (Seg) 9.99 k/uL High 1.50-8.10 [facility] Comment on above: Performed By: #### A ANC #### [address] [address] Belt Worker: Amador Lopez MD Basophils/100 WBC (Bld) 1 % Normal 0-2 [facility] Comment on above: Performed By: #### A ANC #### [address] [address] Belt Worker: Amador Lopez MD Eosinophils (Bld) [#/Vol] 0.03 10*3/uL Normal 0.00-0.4 4 [facility] Comment on above: Performed By: #### A ANC #### [address] [address] Belt Worker: Amador Lopez MD Eosinophils/100 WBC (Bld) 0 % Low 1-4 [facility] Comment on above: Performed By: #### A ANC #### [address] [address] Belt Worker: Amador Lopez MD Erythrocyte distribution width (RBC) [Ratio] 12.0 % Normal 11.8-14.4 [facility] Comment on above: Performed By: #### A ANC #### [address] [address] Belt Worker: Amador Lopez MD Hematocrit (Bld) [Volume fraction] 43.1 % Normal 40.7-50.3 [facility] Comment on above: Performed By: #### A ANC #### [address] [address] Belt Worker: Amador Lopez MD Hemoglobin (Bld) [Mass/Vol] 15.3 g/dL Normal 13.0-17.0 [facility] Comment on above: Performed By: #### A ANC #### [address] [address] Belt Worker: Amador Lopez MD Immature granulocytes/100 WBC (Bld) 3 % High 0 [facility] Comment on above: Performed By: #### A ANC #### [address] [address] Belt Worker: Amador Lopez MD Lymphocytes (Bld) [#/Vol] 0.70 10*3/uL Low 1.10-3.7 0 [facility] Comment on above: Performed By: #### A ANC #### [address] [address] Belt Worker: Amador Lopez MD Lymphocytes/100 WBC (Bld) 6 % Low 24-43 [facility] Comment on above: Performed By: #### A ANC #### [address] [address] Belt Worker: Amador Lopez MD MCH (RBC) [Entitic mass] 33.3 pg Normal 25.2-33.5 [facility] Comment on above: Performed By: #### A ANC #### [address] [address] Belt Worker: Amador Lopez MD MCHC (RBC) [Mass/Vol] 35.5 g/dL High 28.4-34.8 [facility] Comment on above: Performed By: #### A ANC #### [address] [address] Belt Worker: Amador Lopez MD MCV (RBC) [Entitic vol] 93.9 fL Normal 82.6-102.9 [facility] Comment on above: Performed By: #### A ANC #### [address] [address] Belt Worker: Amador Lopez MD Monocytes (Bld) [#/Vol] 1.32 10*3/uL High 0.10-1.20 [facility] Comment on above: Performed By: #### A ANC #### [address] [address] Belt Worker: Amador Lopez MD Monocytes/100 WBC (Bld) 11 % Normal 3-12 [facility] Comment on above: Performed By: #### A ANC #### [address] [address] Belt Worker: Amador Lopez MD Neutrophil (Seg) 79 % High 36-65 [facility] Comment on above: Performed By: #### A ANC #### [address] [address] Belt Worker: Amador Lopez MD NRBC Automated 0.0 per 100 WBC Normal 0.0 [facility] Comment on above: Performed By: #### A ANC #### [address] [address] Belt Worker: Amador Lopez MD Platelet mean volume (Bld) [Entitic vol] 10.6 fL Normal 8.1-13.5 [facility] Comment on above: Performed By: #### A ANC #### [address] [address] Belt Worker: Amador Lopez MD Platelets (Bld) [#/Vol] 200 10*3/uL Normal 138-453 [facility] Comment on above: Performed By: #### A ANC #### [address] [address] Belt Worker: Amador Lopez MD RBC (Bld) [#/Vol] 4.59 10*6/uL Normal 4.21-5.77 [facility] Comment on above: Performed By: #### A ANC #### [address] [address] Belt Worker: Amador Lopez MD WBC (Bld) [#/Vol] 12.6 10*3/uL High 3.5-11.3 [facility] Comment on above: Performed By: #### A ANC #### [address] [address] Belt Worker: Amador Lopez MD Crystals, Fluidson 2 Type of Specimen BURSA Normal [facility] Comment on above: Performed By: #### F FLORINA KIRBY #### [address] [address] Belt Worker: Amador Lopez MD EKG 12 LeadOrdered By: Murray Corley on 06-24-2022 Atrial Rate 90 BPM [facility] [facility] [employer] Phone: P [place] 52 degrees [employer] Work Phone: P-R Interval 158 ms [employer] [employer] Work Phone: Q-T Interval 364 ms [employer] Work Phone: QRS Duration 106 ms [employer] [employer] Work Phone: QTc Calculation (Bazett) 445 ms [employer] Work Phone: R [place] 42 degrees [employer] Work Phone: T [place] 24 degrees [employer] Work Phone: Ventricular Rate 90 BPM [employer] [employer] Work Phone: [employer] Phone: EKG 12 Leadon 06-24-2022 Normal sinus rhythm Incomplete right bundle branch block Borderline ECG When compared with ECG of 24-JUN-2022 05:54, No significant change was found [facility] Murray La MD - 06/24/2022 Normal sinus rhythm Incomplete right bundle branch block Borderline ECG When compared with ECG of 24-JUN-2022 05:54, No significant change was found [employer] Work Phone: Fluid Cell Count and Diffon 06-24-2022 Lymphocytes/100 WBC (Bld) 1 % Normal [facility] Comment on above: Result Comment: The reference range and other method performance specifications have not been established for this body fluid. The test result must be integrated into the clinical context for interpretation. Performed By: #### F EBCRAVINDERI #### [facility] [address] [place] [id number] Belt Worker: Amador Lopez MD Neutrophils/100 WBC (Bld) 96 % Normal [facility] Comment on above: Result Comment: The reference range and other method performance specifications have not been established for this body fluid. The test result must be integrated into the clinical context for interpretation. Performed By: #### F EBFLORINA Edwards #### [facility] [address] [place] [address] Belt Worker: Amador Lopez MD RBC [id number] /mm3 Normal [facility] Comment on above: Result Comment: The reference range and other method performance specifications have not been established for this body fluid. The test result must be integrated into the clinical context for interpretation. Performed By: #### F EBC, FERI #### [facility] [address] [place] [address] Belt Worker: Amador Lopez MD WBC [id number] /mm3 Normal [facility] Comment on above: Result Comment: The reference range and other method performance specifications have not been established for this body fluid. The test result must be integrated into the clinical context for interpretation. Performed By: #### F EBC, FERI #### [facility] [address] [place] [id number] Belt Worker: Amador Lopez MD No Panel Informationon 06-24 Interpretation and review of laboratory results Abnormal [facility] [employer] [facility] Radiology Study observation (narrative) [facility] Work Phone: OPERATIVE REPORTon 2 OPERATIVE REPORT [address] [address] OPERATIVE REPORT PATIENT NAME: PRESTON CARRASQUILLO : 1955 MED REC NO: [id number] ROOM: [id number] ACCOUNT NO: [id number] ADMIT DATE: 06/24/2022 PROVIDER: Pardeep Infante DATE OF PROCEDURE: 06/24/2022 PREOPERATIVE DIAGNOSES: 1. Left medial ankle tendon sheath abscess. 2. Left ankle septic arthritis. POSTOPERATIVE DIAGNOSES: 1. Left medial ankle tendon sheath abscess. 2. Left ankle septic arthritis. 3. Posterior tibialis tendon complete rupture. PROCEDURES: 1. Debridement of left medial ankle 16 x 5 cm, CPT 58311 and 53075, x3. 2. Left ankle arthrotomy and irrigation, CPT 65260. ATTENDING SURGEON: Pardeep Infante DO ASSISTANTS: 1. [...] The patient states he has seen a international project engineer in the past and he was told [...] well-padded shor (more content not included)... Normal [facility] PTon 06-24-2022 INR Coag (PPP) [Relative time] 0.9 {INR} Normal [facility] Comment on above: Result Comment: Therapeutic Range: Moderate Anticoagulant Intensity: INR = 2.0-3.0 High Anticoagulant Intensity: INR = 2.5-3.5 Performed By: #### A ANC #### [facility] [address] [place] [address] Belt Worker: Amador Lopez MD PT Coag (PPP) [Time] 9.9 s Normal 9.1-12.3 [facility] Comment on above: Performed By: #### A ANC #### [facility] [address] [place] [address] Belt Worker: Amador Lopez MD Protime-INRon 06-24-2022 INR Coag (Bld) [Relative time] 0.9 {INR} [facility] Comment on above: Therapeutic Range: Moderate Anticoagulant Intensity: INR = 2.0-3.0 High Anticoagulant Intensity: INR = 2.5-3.5 PT Coag (PPP) [Time] 9.9 s [facility] UA w/Reflex Cultureon 2021 Bilirubin, SemiQt,Ur Negative Normal NEG [facility] Comment on above: Performed By: #### B MPX #### [address] [address] Belt Worker: Amador Lopez MD Blood, Urine Negative Normal NEG [facility] Comment on above: Performed By: #### B MPX #### [address] [address] Belt Worker: Amador Lopez MD Clarity (U) Clear Normal CLEAR [facility] Comment on above: Performed By: #### B MPX #### [address] [address] Belt Worker: Amador Lopez MD Color (U) Yellow Normal YEL [facility] Comment on above: Performed By: #### B MPX #### [address] [address] Belt Worker: Amador Lopez MD Comment Microscopic exam not performed based on chemical results unless requested in Normal [facility] Comment on above: Result Comment: orig inal order. Performed By: #### B MPX #### [address] [address] Belt Worker: Amador Lopez MD Glucose Ql (U) Negative Normal NEG [facility] Comment on above: Performed By: #### B MPX #### [address] [address] Belt Worker: Amador Lopez MD Ketones Ql (U) Negative Normal NEG [facility] Comment on above: Performed By: #### B MPX #### [address] [address] Belt Worker: Amador Lopez MD Leukocyte esterase Test strip Ql (U) Negative Normal NEG [facility] Comment on above: Performed By: #### B MPX #### [address] [address] Belt Worker: Amador Lopez MD Nitrite,Ur Negative Normal NEG [facility] Comment on above: Performed By: #### B MPX #### [address] [address] Belt Worker: Amador Lopez MD PH,Ur 5.5 Normal 5.0-8.0 [facility] Comment on above: Performed By: #### B MPX #### [address] [address] Belt Worker: Amador Lopez MD Protein Ql (U) Negative Normal NEG [facility] Comment on above: Performed By: #### B MPX #### [address] [address] Belt Worker: Amador Lopez MD Spec. [place],Ur 1.019 Normal 1.005-1.030 [facility] Comment on above: Performed By: #### B MPX #### [address] [address] Belt Worker: Amador Lopez MD Urobilinogen,Ur Normal Normal NORM [facility] Comment on above: Performed By: #### B MPX #### [address] [address] Belt Worker: Amador Lopez MD Urinalysis with Reflex to Cu ltureon 06-24-2022 Bilirubin Urine Negative NEGATIVE [facility] Color, UA Yellow Yellow [facility] Glucose, Ur Negative NEGATIVE [facility] Ketones Ql (U) Negative NEGATIVE [facility] Leukocyte esterase Test strip Ql (U) Negative NEGATIVE [facility] Nitrite, Urine Negative NEGATIVE [facility] pH, UA 5.5 5 - 8 [facility] Protein, UA Negative NEGATIVE [facility] Specific [place], UA 1.019 1.005 - 1.03 [facility] Turbidity UA Clear Clear [facility] Urinalysis Comments Microscopic exam not performed based on chemical results unless requested in original order. [facility] Urine Hgb Negative NEGATIVE [facility] Urobilinogen, Urine Normal Normal [facility] S [facility] XR ANKLE LEFT (MIN 3 VIEWS)o n [...] Malathi Love MD 06/24/22 Final result Normal [facility] No acute bony abnormality of the ankle. Medial predominant soft tissue swelling. Moderate ankle joint osteoarthritis. [facility] EXAMINATION: THREE XRAY [...] evidence of joint effusion. Peripheral vascular calcifications. [facility] Malathi Love MD [...] soft tissue swelling. Moderate ankle joint osteoarthritis. [employer] Work Phone: XR ANKLE LEFT (MIN 3 VIEWS)O rdered By: Malathi Ivan on 06-24-2022 [employer] Work Phone: XR CHEST (SINGLE VIEW FRONTA [...] Ernie Temple MD 06/24/22 Final result Normal [facility] No acute findings. [facility] EXAMINATION: ONE XRAY VIEW OF THE CHEST 06/24/2022 4:18 am COMPARISON: Chest x-ray 09/28/2019 HISTORY: ORDERING SYSTEM PROVIDED HISTORY: pre op TECHNOLOGIST PROVIDED HISTORY: pre op FINDINGS: Lungs are clear. Prominent right costophrenic angle, unchanged. Cardiomediastinal silhouette is within normal limits. No pleural effusion. No pneumothorax. Bony structures are unremarkable. Partially imaged spine stimulator, right reverse shoulder arthroplasty. [facility] Ernie Temple MD [...] reverse shoulder arthroplasty. IMPRESSION: No acute findings. [facility] Work Phone: XR CHEST (SINGLE VIEW FRONTA L)Ordered By: Ernie Temple on 06-24-2022 [facility] Work Phone: C-Reactive Proteinon 022 CRP [Mass/Vol] 106 mg/L High 0 - 5 mg/L [facility] CBC with Auto Differentialon 06-23-2022 Absolute Eos # 0.39 [facility] Absolute Immature Granulocyte 0.00 [facility] Absolute Lymph # 1.05 Low [facility] Absolute [place] # 1.44 High [facility] Basophils (Bld) [#/Vol] 0.00 10*3/uL [facility] Basophils/100 WBC (Bld) 0 % 0 - 2 % B ON [facility] Eosinophils/100 WBC (Bld) 3 % 1 - 4 % [facility] Hematocrit (Bld) [Volume fraction] 44.0 % 40.7 - 50.3 % [facility] Hemoglobin (Bld) [Mass/Vol] 15.0 g/dL 13 - 17 g/dL [facility] Immature granulocytes/100 WBC (Bld) 0 % 0 [facility] Interpretation and review of laboratory results Abnormal [facility] Lymphocytes/100 WBC (Bld) 8 % Low 24 - 43 % [facility] MCH (RBC) [Entitic mass] 32.7 pg 25. 2 - 33.5 pg [facility] MCHC (RBC) [Mass/Vol] 34.1 g/dL 28.4 - 34.8 g/dL [facility] MCV (RBC) [Entitic vol] 95.9 fL 82.6 - 102.9 fL [facility] Monocytes/100 WBC (Bld) 11 % 3 - 12 % B [facility] Morphology [place] (Bld) [Interp] Normal [facility] NRBC Automated 0.0 0.0 per 100 WBC [facility] Platelet distribution width (Bld) [Ratio] 11.9 % 11.8 - 14.4 % [facility] Platelet mean volume (Bld) [Entitic vol] 10.6 fL 8.1 - 13.5 fL [facility] Platelets (Bld) [#/Vol] 210 10*3/uL [facility] RBC (Bld) [#/Vol] 4.59 10*6/uL 4.21 - 5.7 7 m/uL [facility] Segmented neutrophils/100 WBC (Bld) 78 % High 36 - 65 % [facility] Segs Absolute 10.22 High [facility] WBC (Bld) [#/Vol] 13.1 10*3/uL High [facility] [place] CMPon 06-23-2022 Albumin [Mass/Vol] 3.2 g/dL Low 3.5 - 5.2 g/dL [facility] Albumin/Globulin [Mass ratio] 1.0 {ratio} 1 - 2.5 [facility] ALP (Bld) [Catalytic activity/Vol] 73 U/L 40 - 129 U/L [facility] ALT [Catalytic activity/Vol] 15 U/L 5 - 41 U/L [facility] Anion gap [Moles/Vol] 8 mmol/L Low 9 - 17 mmol/L [facility] AST [Catalytic activity/Vol] 17 U/L NINF - 40 U/L [facility] Bilirubin [Mass/Vol] 0.78 mg/dL 0.3 - 1 .2 mg/dL [facility] Calcium [Mass/Vol] 8.3 mg/dL Low 8.6 - 10. 4 mg/dL [facility] Chloride [Moles/Vol] 94 mmol/L Low 98 - 10 7 mmol/L [facility] CO2 [Moles/Vol] 25 mmol/L 20 - 31 mmol/L [facility] Creatinine [Mass/Vol] 0.63 mg/dL Low 0.7 - 1.2 mg/dL [facility] Free PSA/Total PSA [Mass fraction] 6.5 g/dL 6.4 - 8.3 g/dL [facility] GFR >60 60 - PI NF mL/min [facility] GFR Non- >60 60 - PINF mL/min [facility] Glucose [Mass/Vol] 85 mg/dL 70 - 99 mg/dL [facility] Potassium [Moles/Vol] 4.2 mmol/L 3.7 - 5.3 mmol/L [facility] Sodium [Moles/Vol] 127 mmol/L Low 135 - 144 mmol/L [facility] Urea nitrogen (BldV) [Mass/Vol] 18 mg/dL 8 - 23 mg/dL [facility] Urea nitrogen/Creatinine (Bld) [Mass ratio] 29 High 9 - [address] [facility] [address] ANKLE LEFT W CONTRASTon 0 06-23-2022 [...] ORDERING SYSTEM PROVIDED HISTORY: Left ankle swelling/redness/wa [facility] TECHNOLOGIST PROVIDED HISTORY: Left ankle swelling/redness/wa [facility] 66-year-old male with left ankle redness and [...] expected locations. Visualized Achilles tendon grossly unremarkable. [facility] Marquis Benitez MD - 06/23/2022 EXAMINATION: [...] calcaneal spur. No acute fracture or dislocation. [employer] Work Phone: Radiology Study observation (narrative) [employer] Work Phone: CT ANKLE LEFT W CONTRASTOrde red By: Marquis Guerrero on 06-23-2022 [employer] Work Phone: Laboratory - Chemistry and C hemistry - challengeon 06-23-2022 GFR/1.73 sq M.predicted MDRD (S/P/Bld) [Vol rate/Area] [facility] [employer] Comment on above: Average GFR for 60-6 9 years old: 85 mL/min/1.73sq m Chronic Kidney Disease: <60 mL/min/1.73sq m Kidney failure: <15 mL/min/1.73sq m eGFR calculated using average adult body mass. Additional eGFR calculator available at: http://www.[employer]/multiple_crcl_2012.htm Stage 1: Some kidney damage normal GFR Stage 2: Mild kidney damage GFR 60-89 Stage 3: Moderate kidney damage GFR 30-59 Stage 4: Severe kidney damage GFR 15-29 Stage 5: Severe kidney damage GFR <15 ESRD - chronic treatment by dialysis or transplant No Panel Informationon 06-23 Interpretation and review of laboratory results Abnormal [facility]ITAL[facility] [employer] Sedimentation Rateon 022 Interpretation and review of laboratory results Abnormal [facility] [employer] Sed Rate 61 High [facility] [employer] [facility] XR THORACIC SPINE, 3 VIEWSon 09-16-2021 XR [...] to the right, new from comparison. Normal [facility] Basic Metabolic PanelOrdered By: Tyrell Weinberg on 06-29-2021 Anion gap [Moles/Vol] 11 mmol/L 9 - 17 mmol/L [employer] Phone: Calcium [Mass/Vol] 8.7 mg/dL 8.6 - 10. 4 mg/dL [employer] Phone: Chloride [Moles/Vol] 96 mmol/L Low 98 - 10 7 mmol/L [employer] Phone: CO2 [Moles/Vol] 21 mmol/L 20 - 31 mmol/L [employer] Phone: Creatinine [Mass/Vol] 0.63 mg/dL Low 0.70 - 1.20 mg/dL [employer] Phone: GFR >60 >60 mL/min [employer] Phone: GFR Non- >60 >60 mL/min [employer] Phone: Glucose [Mass/Vol] 96 mg/dL 70 - 99 mg/dL [employer] Phone: Interpretation and review of laboratory results Abnormal [employer] Work Phone: Potassium [Moles/Vol] 4.3 mmol/L 3.7 - 5.3 mmol/L [facility] Work Phone: Sodium [Moles/Vol] 128 mmol/L Low 135 - 144 mmol/L [facility] Work Phone: Urea nitrogen (BldV) [Mass/Vol] 8 mg/dL 8 - 23 mg/dL [facility] Work Phone: Urea nitrogen/Creatinine (Bld) [Mass ratio] 13 [facility] Work Phone: [facility] Work Phone: CBC Auto DifferentialOrdered By: Tyrell Weinberg on 06-29-2021 Absolute Eos # 0.03 [employer] Work Phone: Absolute Immature Granulocyte 0.10 [facility] Work Phone: Absolute Lymph # 1.06 Low [facility] Work Phone: Absolute [place] # 0.92 [facility] Work Phone: Basophils (Bld) [#/Vol] 10*3/uL [employer] Work Phone: Basophils/100 WBC (Bld) 0 % 0 - 2 % [employer] Work Phone: Differential Type NOT REPORTED [employer] Phone: Eosinophils/100 WBC (Bld) 0 % Low 1 - 4 % [employer] Phone: Hematocrit (Bld) [Volume fraction] 45.4 % 40.7 - 50.3 % [facility] Work Phone: Hemoglobin.gastrointestin al spec 1 Ql (Stl) 15.1 g/dL 13.0 - 17.0 g/dL [facility] Work Phone: Immature granulocytes/100 WBC (Bld) 2 % High 0 [facility] Work Phone: Interpretation and review of laboratory results Abnormal [employer] Work Phone: Lymphocytes/100 WBC (Bld) 15 % Low 24 - 43 % [employer] Phone: MCH (RBC) [Entitic mass] 32.8 pg 25. 2 - 33.5 pg [employer] Phone: MCHC (RBC) [Mass/Vol] 33.3 g/dL 28.4 - 34.8 g/dL [employer] Phone: MCV (RBC) [Entitic vol] 98.5 fL 82.6 - 102.9 fL [employer] Phone: Monocytes/100 WBC (Bld) 13 % High 3 - 12 % [employer] Phone: NRBC Automated 0.0 0.0 per 100 WBC [employer] Phone: Platelet distribution width (Bld) [Ratio] 11.7 % Low 11.8 - 14.4 % [employer] Phone: Platelet Estimate NOT REPORTED [employer] Phone: Platelet mean volume (Bld) [Entitic vol] 10.0 fL 8.1 - 13.5 fL [employer] Phone: Platelets (Bld) [#/Vol] 201 10*3/uL [employer] Phone: RBC (Bld) [#/Vol] 4.61 10*6/uL 4.21 - 5.7 7 m/uL [employer] Phone: RBC (Bld) [#/Vol] NOT REPORTED [employer] Phone: Segmented neutrophils/100 WBC (Bld) 70 % High 36 - 65 % [employer] Phone: Segs Absolute 4.74 [employer] Work Phone: WBC (Bld) [#/Vol] 6.9 10*3/uL [employer] Phone: WBC (Bld) [#/Vol] NOT REPORTED [employer] Phone: [employer] Phone: Laboratory - Chemistry and C hemistry - challengeOrdered By: Tyrell Weinberg on 06-29-2021 GFR/1.73 sq M.predicted MDRD (S/P/Bld) [Vol rate/Area] [employer] Phone: Comment on above: Average GFR for 60-6 9 years old: 85 mL/min/1.73sq m Chronic Kidney Disease: <60 mL/min/1.73sq m Kidney failure: <15 mL/min/1.73sq m eGFR calculated using average adult body mass. 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[id number] Requested By: [id number] Order Number: [id number] Reading MD: Ion Marquez Measurements Intervals [place] Rate: 96 P: 71 TX: 180 QRS: 53 QRSD: 98 T: 47 QT: 354 QTc: 447 Interpretive Statements Normal sinus rhythm Inferior-posterior infarct , age undetermined Electronically Signed On 05-20-2021 13:04:09 EDT by Ion Marquez Normal [facility] MSSA BY AMPLIFICATIONon MRSA isol Org specific cx Ql (Unsp spec) [facility] Comment on above: Result Comment: POSI TIVE NEGATIVE Performed By: #### S TAP #### [address] [address] Hemoglobin and Hematocrit, B loodon 10-13-2020 Hematocrit (Bld) [Volume fraction] 44.2 % 40.7 - 50.3 % [place] Hemoglobin (Bld) [Mass/Vol] 14.5 g/dL 13 - 17 g/dL [place] XR SHOULDER RIGHT 1 VWon Status post reverse total right shoulder arthroplasty, in gross anatomic alignment, with postoperative changes, without evidence of hardware complication, fracture or dislocation. 2 mm linear radiopaque opacity overlying the proximal metaphysis of the right humerus, likely related to surgical clip. Atelectasis at the right lung base. [place] EXAMINATION: ONE XRAY VIEW OF THE [...] is atelectasis at the right lung base. [place], [place] Dash, Mh[employer] Incoming Radiant Results From [employer] - 10/13/2020 5:26 PM EST EXAMINATION: ONE [...] clip. Atelectasis at the right lung base. [place], [place] COVID-19 Ambulatoryon 2019 SARS-CoV-2, RENETTA Not Detected Not Detected [facility] Comment on above: (NOTE) This nucleic acid amplification test was developed and its performance characteristics determined by [employer]. Nucleic acid amplification tests include PCR and [...] detected) result in this assay. Performed At: [facility] [address] [place] [id number] Yolette Mejia MD Ph:[phone] FLUORO FOR SURGICAL PROCEDUR ESon 09-08-2020 Radiology exam is complete. No Radiologist dictation. Please follow up with ordering provider. [facility] FLUORO FOR SURGICAL PROCEDUR ESon 08-11-2020 Radiology exam is complete. No Radiologist dictation. Please follow up with ordering provider. [facility] Covid-19, Antibody, Totalon 06-17-2020 SARS-CoV-2, Total Negative NEGATIVE [facility] Comment on above: Negative results do not [...] authorized laboratories. Fact sheet for Healthcare Providers: https://www.fda.gov/media/894007/download Fact sheet for Patients: https://www.fda.gov/media/071257/download METHODOLOGY: EC[facility] MRI LUMBAR SPINE Sanjuanita Hedrick 05-25-2020 1. Moderate L4-L5 degenerative disc disease with disc bulge contributing to moderate bilateral neural foraminal stenosis. 2. Mild bilateral L2-L3 neural foraminal stenosis. [facility] EXAMINATION: MRI OF THE LUMBAR SPINE WITHOUT [...] spinal canal stenosis or neural foraminal narrowing. [facility] Dash, Mhpn Incoming Radiant Results From [employer] - 05/25/2020 9:29 PM EDT EXAMINATION: MRI [...] 2. Mild bilateral L2-L3 neural foraminal stenosis. [place] Creatinine, Serumon 05-18-20 20 Creatinine [Mass/Vol] 0.6 mg/dL Low 0.7 - 1.2 mg/dL [place] GFR >60 >60 mL/min [place] GFR Non- >60 >60 mL/min [place] Interpretation and review of laboratory results Abnormal [place], [place] Metabolic Panelon 05-18-2020 GFR/1.73 sq M predicted among non-blacks MDRD (S/P/Bld) [Vol rate/Area] [place] Comment on above: Average GFR for 60-6 9 years old: 85 mL/min/1.73sq m Chronic Kidney Disease: <60 mL/min/1.73sq m Kidney failure: <15 mL/min/1.73sq m eGFR calculated using average adult body mass. Additional eGFR calculator available at: http://www.[employer]/multiple_crcl_2012.htm Stage 1: Some kidney damage normal GFR Stage 2: Mild kidney damage GFR 60-89 Stage 3: Moderate kidney damage GFR 30-59 Stage 4: Severe kidney damage GFR 15-29 Stage 5: Severe kidney damage GFR <15 ESRD - chronic treatment by dialysis or transplant XR CHEST STANDARD (2 VW)on 11-28-2018 No acute cardiopulmonary process. [place] EXAMINATION: TWO XRAY VIEWS OF THE CHEST 09/28/2019 12:52 pm COMPARISON: Chest CT 03/11/2019, chest radiograph 01/27/2017 HISTORY: ORDERING SYSTEM PROVIDED HISTORY: cough TECHNOLOGIST PROVIDED HISTORY: cough FINDINGS: Clear lungs. No findings of pneumothorax or pleural effusion. Normal mediastinal, hilar, and cardiac contours. Suture anchor in the left humeral head, suggesting tendon repair. Diffuse osseous demineralization. No obvious acute fracture. [place], [place] Dash, Mhpn Incoming Radiant Results From [employer] - 09/28/2019 1:03 PM EST EXAMINATION: TWO [...] acute fracture. IMPRESSION: No acute cardiopulmonary process. [place] Vital Signs Date Time Vital Sign Value Performing Clinician Matthew maguire 07-01-2023 10:23-040 Body mass index (BMI) [Ratio] 25.92 kg/m2 Nadege Muñoz DO Work Phone: [facility] [employer] 07-01-2023 10:23-040 Body temperature 97.81 [degF] Nadege Muñoz DO Work Phone: [facility] [employer] 07-01-2023 10:23-0400 Body weight 76.2 kg Nadege Muñoz DO Work Phone: [facility] [employer] 07-01-2023 10:23-040 Diastolic blood pressure 82 mm[Hg] Nadege Muñoz DO Work Phone: [facility] [employer] [facility] 07-01-2023 10:23-0400 Heart rate 82 /min Nadege Muñoz DO Work Phone: [facility] 07-01-2023 10:23-0400 Respiratory rate 16 /min Nadege Muñoz DO Work Phone: [facility] 07-01-2023 10:23-0400 SaO2% (BldA) [Mass fraction] 95 % Nadege Muñoz DO Work Phone: [facility] 07-01-2023 10:23-0400 Systolic blood pressure 160 mm[Hg] Nadege Muñoz DO Work Phone: [facility] 03-01-2023 11:16-0400 Body temperature 98.4 [degF] Cristopher Moreira MD Work Phone: [facility] 03-01-2023 11:16-0400 Diastolic blood pressure 68 mm[Hg] Cristopher Moreira MD Work Phone: [facility] 03-01-2023 11:16-0400 Heart rate 95 /min Cristopher Moreira MD Work Phone: [facility] 03-01-2023 11:16-0400 Respiratory rate 18 /min Cristopher Moreira MD Work Phone: [facility] 03-01-2023 11:16-0400 SaO2% (BldA) [Mass fraction] 94 % Cristopher Moreira MD Work Phone: [facility] 03-01-2023 11:16-0400 Systolic blood pressure 128 mm[Hg] Cristopher Moreira MD Work Phone: [facility] 02-28-2023 14:43-0400 Body height 170.2 cm Cristopher Moreira MD Work Phone: [facility] 02-28-2023 14:43-0400 Body mass index (BMI) [Ratio] 27.1 kg/m2 Cristopher Moreira MD Work Phone: [facility] 02-28-2023 14:43-0400 Body weight 78.47 kg Cristopher Moreira MD Work Phone: [facility] 02-22-2023 09:49-0400 Body height 163.8 cm Carissa Richendollar TEENAGE PROGRAM DIRECTOR-EXTRUSION DIE REPAIRER Work Phone: [facility] 02-22-2023 09:49-0400 Body mass index (BMI) [Ratio] 28.39 kg/m2 Carissa Richendollar TEENAGE PROGRAM DIRECTOR-EXTRUSION DIE REPAIRER Work Phone: [facility] 02-22-2023 09:49-0400 Body temperature 98.2 [degF] Carissa Richendollar TEENAGE PROGRAM DIRECTOR-EXTRUSION DIE REPAIRER Work Phone: [facility] 02-22-2023 09:49-0400 Body weight 76.2 kg Carissa Richendollar TEENAGE PROGRAM DIRECTOR-EXTRUSION DIE REPAIRER Work Phone: [facility] 02-22-2023 09:49-0400 Diastolic blood pressure 60 mm[Hg] Carissa Richendollar TEENAGE PROGRAM DIRECTOR-EXTRUSION DIE REPAIRER Work Phone: [facility] 02-22-2023 09:49-0400 Heart rate 97 /min Carissa Richendollar TEENAGE PROGRAM DIRECTOR-EXTRUSION DIE REPAIRER Work Phone: [facility] 02-22-2023 09:49-0400 Respiratory rate 16 /min Carissa Richendollar TEENAGE PROGRAM DIRECTOR-EXTRUSION DIE REPAIRER Work Phone: [facility] 02-22-2023 09:49-0400 SaO2% (BldA) [Mass fraction] 98 % Carissa Richendollar TEENAGE PROGRAM DIRECTOR-EXTRUSION DIE REPAIRER Work Phone: [facility] 02-22-2023 09:49-0400 Systolic blood pressure 98 mm[Hg] Carissa Richendollar TEENAGE PROGRAM DIRECTOR-EXTRUSION DIE REPAIRER Work Phone: [facility] 01-12-2023 01:11-0500 Diastolic blood pressure 74 mm[Hg] Landen Valdes MD Work Phone: [facility] 01-12-2023 01:11-0500 Heart rate 95 /min Landen Valdes MD Work Phone: [facility] 01-12-2023 01:11-0500 Respiratory rate 15 /min Landen Valdes MD Work Phone: [facility] 01-12-2023 01:11-0500 SaO2% (BldA) [Mass fraction] 98 % Landen Valdes MD Work Phone: [facility] 01-12-2023 01:11-0500 Systolic blood pressure 160 mm[Hg] Landen Valdes MD Work Phone: [facility] 01-11-2023 23:13-0500 Body mass index (BMI) [Ratio] 25.15 kg/m2 Landen Valdes MD Work Phone: [facility] 01-11-2023 23:13-0500 Body temperature 99.19 [degF] Landen Valdes MD Work Phone: [facility] 01-11-2023 23:13-0500 Body weight 73.94 kg Landen Valdes MD Work Phone: [facility] 01-02-2023 11:00-0500 Body temperature 97.2 [degF] Cristopher Moreira MD Work Phone: [facility] 01-02-2023 11:00-0500 Diastolic blood pressure 60 mm[Hg] Cristopher Moreira MD Work Phone: [facility] 01-02-2023 11:00-0500 Heart rate 73 /min Cristopher Moreira MD Work Phone: [facility] 01-02-2023 11:00-0500 Respiratory rate 16 /min Cristopher Moreira MD Work Phone: [facility] 01-02-2023 11:00-0500 SaO2% (BldA) [Mass fraction] 97 % Cristopher Moreira MD Work Phone: [facility] 01-02-2023 11:00-0500 Systolic blood pressure 145 mm[Hg] Cristopher Moreira MD Work Phone: [facility] 01-02-2023 09:05-0500 Body height 170.2 cm Cristopher Moreira MD Work Phone: [facility] 01-02-2023 09:05-0500 Body mass index (BMI) [Ratio] 25.37 kg/m2 Cristopher Moreira MD Work Phone: [facility] 01-02-2023 09:05-0500 Body weight 73.5 kg Cristopher Moreira MD Work Phone: [facility] 12-08-2022 14:00-0500 Body temperature 98.1 [degF] [facility] [employer] [facility] [employer] 12-08-2022 14:00-0500 Diastolic blood pressure 90 mm[Hg] [facility] [employer] 12-08-2022 14:00-0500 Heart rate 73 /min [facility] [employer] 12-08-2022 14:00-0500 Respiratory rate 18 /min [facility] [employer] [facility] [employer] 12-08-2022 14:00-0500 Systolic blood pressure 138 mm[Hg] [facility] [facility] 12-07-2022 13:14-0500 Body temperature 98.4 [degF] [facility] [employer] 12-07-2022 13:14-0500 Diastolic blood pressure 58 mm[Hg] [facility] 12-07-2022 13:14-0500 Heart rate 77 /min [facility] [employer] 12-07-2022 13:14-0500 Respiratory rate 18 /min [facility] SEC[employer]ensor [facility] 12-07-2022 13:14-0500 Systolic blood pressure 103 mm[Hg] [facility] 01 [facility] 12-06-2022 13:15-0500 Diastolic blood pressure 58 mm[Hg] [facility] 01 [facility] 12-06-2022 13:15-0500 Heart rate 75 /min [facility] 01 [facility] 12-06-2022 13:15-0500 Respiratory rate 18 /min [facility] 01 [facility] 12-06-2022 13:15-0500 Systolic blood pressure 118 mm[Hg] [facility] 01 [facility] 12-05-2022 13:02-0500 Body temperature 97.5 [degF] [facility] 01 [facility] 12-05-2022 13:02-0500 Diastolic blood pressure 63 mm[Hg] [facility] 01 [facility] 12-05-2022 13:02-0500 Heart rate 81 /min [facility] 01 [facility] 12-05-2022 13:02-0500 Respiratory rate 20 /min [facility] 01 [facility] 12-05-2022 13:02-0500 Systolic blood pressure 157 mm[Hg] [facility] 01 [facility] 12-04-2022 13:29-0500 Body temperature 98.91 [degF] [facility] 01 [facility] 12-04-2022 13:29-0500 Diastolic blood pressure 64 mm[Hg] [facility] 01 [facility] 12-04-2022 13:29-0500 Heart rate 88 /min [facility] 01 [facility] 12-04-2022 13:29-0500 Respiratory rate 20 /min [facility] 01 [facility] 12-04-2022 13:29-0500 Systolic blood pressure 103 mm[Hg] [facility] 01 [facility] 12-03-2022 12:47-0500 Body temperature 98.4 [degF] [facility] 01 [facility] 12-03-2022 12:47-0500 Diastolic blood pressure 75 mm[Hg] [facility] 01 [facility] 12-03-2022 12:47-0500 Heart rate 80 /min [facility] 01 [facility] 12-03-2022 12:47-0500 Respiratory rate 18 /min [facility] 01 [facility] 12-03-2022 12:47-0500 SaO2% (BldA) [Mass fraction] 97 % [facility] [address] [facility] 12-03-2022 12:47-0500 Systolic blood pressure 131 mm[Hg] [facility] 12-02-2022 13:00-0500 Diastolic blood pressure 67 mm[Hg] [facility] 12-02-2022 13:00-0500 Heart rate 77 /min [facility] 01 [facility] 12-02-2022 13:00-0500 Respiratory rate 18 /min [facility] 01 [facility] 12-02-2022 13:00-0500 Systolic blood pressure 128 mm[Hg] [facility] [address] [facility] 12-01-2022 14:13-0500 Body temperature 97.7 [degF] [facility] 01 [facility] 12-01-2022 14:13-0500 Diastolic blood pressure 74 mm[Hg] [facility] [address] 12-01-2022 14:13-0500 Heart rate 70 /min [facility] 01 [facility] 12-01-2022 14:13-0500 Respiratory rate 18 /min [facility] 01 [facility] 12-01-2022 14:13-0500 Systolic blood pressure 113 mm[Hg] [facility] [address] [facility] 11-30-2022 13:04-0500 Body temperature 99.39 [degF] [facility] 01 [facility] 11-30-2022 13:04-0500 Diastolic blood pressure 60 mm[Hg] [facility] [address] [facility] 11-30-2022 13:04-0500 Heart rate 74 /min [facility] 01 [facility] [employer] [facility] 11-30-2022 13:04-0500 Respiratory rate 18 /min [facility] 01 [facility] 11-30-2022 13:04-0500 Systolic blood pressure 107 mm[Hg] [facility] [address] [facility] 11-29-2022 13:02-0500 Body temperature 97.59 [degF] [facility] 01 [facility] 11-29-2022 13:02-0500 Diastolic blood pressure 86 mm[Hg] [facility] 01 [facility] [employer] [facility] 11-29-2022 13:02-0500 Heart rate 91 /min [facility] 01 D[facility] [employer]ENETTA [facility] 11-29-2022 13:02-0500 Respiratory rate 18 /min [facility] 01 [facility] CR[facility] 11-29-2022 13:02-0500 Systolic blood pressure 158 mm[Hg] [facility] 01 [facility] 11-28-2022 12:59-0500 Body temperature 98.4 [degF] [facility] 01 [facility] 11-28-2022 12:59-0500 Diastolic blood pressure 70 mm[Hg] [facility] [address] [facility] 11-28-2022 12:59-0500 Heart rate 92 /min [facility] 01 [facility] 11-28-2022 12:59-0500 Respiratory rate 16 /min [facility] 01 [facility] 11-28-2022 12:59-0500 Systolic blood pressure 117 mm[Hg] [facility] 01 [facility]ANN[facility]EN[facility]TA [facility] 11-27-2022 13:30-0500 Body temperature 97.9 [degF] [facility] 01 [facility] 11-27-2022 13:30-0500 Diastolic blood pressure 54 mm[Hg] [facility] [address] [facility] 11-27-2022 13:30-0500 Heart rate 88 /min [facility] 01 DUTCH BANNERRENETTA [employer] [facility] 11-27-2022 13:30-0500 Respiratory rate 14 /min [facility] 01 D[facility] HERNANDEZ [facility] 11-27-2022 13:30-0500 SaO2% (BldA) [Mass fraction] 96 % [facility] [address] [facility] 11-27-2022 13:30-0500 Systolic blood pressure 91 mm[Hg] [facility] [address] [facility] 11-25-2022 15:30-0500 Diastolic blood pressure 69 mm[Hg] Akil Saini DPM Work Phone: DUTCH [employer] 11-25-2022 15:30-0500 Heart rate 78 /min Akil Saini DPM Work Phone: DUTCH [employer] [facility] 11-25-2022 15:30-0500 Respiratory rate 18 /min Akil Saini DPM Work Phone: DUTCH [employer] [facility] 11-25-2022 15:30-0500 SaO2% (BldA) [Mass fraction] 96 % Akil Saini DPM Work Phone: [employer] 11-25-2022 15:30-0500 Systolic blood pressure 146 mm[Hg] Akil Saini DPM Work Phone: [email or web address] BANNERSepSensor [facility] 11-25-2022 14:15-0500 Body temperature 97 [degF] Akil Saini DPM Work Phone: [email or web address] BANNERSepSensor [facility] 11-25-2022 10:38-0500 Body height 171.5 cm Akil Saini DPM Work Phone: [employer] 11-25-2022 10:38-0500 Body mass index (BMI) [Ratio] 25.46 kg/m2 Akil Saini DPM Work Phone: [employer] [facility] 11-25-2022 10:38-0500 Body weight 74.84 kg Akil Saini DPM Work Phone: [employer] [facility] 07-04-2022 12:26-0400 Body temperature 97.5 [degF] [facility] [employer] [facility] [employer] 07-04-2022 11:54-0400 Body height 171.5 cm [facility] 07-04-2022 11:54-0400 Body mass index (BMI) [Ratio] 26.39 kg/m2 [facility] [employer] 07-04-2022 11:54-0400 Body weight 77.56 kg [facility] [employer] 07-04-2022 11:54-0400 Diastolic blood pressure 68 mm[Hg] [facility] 07-04-2022 11:54-0400 Heart rate 70 /min [facility] [employer] 07-04-2022 11:54-0400 Respiratory rate 18 /min [facility] 07-04-2022 11:54-0400 SaO2% (BldA) [Mass fraction] 98 % [employer] [facility] 07-04-2022 11:54-0400 Systolic blood pressure 130 mm[Hg] [employer] [facility] 06-26-2022 12:20-0400 Respiratory rate 16 /min Pardeep Infante DO Work Phone: DUTCH [employer] 06-26-2022 07:28-0400 Body temperature 97.39 [degF] Pardeep Infante DO Work Phone: D[facility]CH [employer] 06-26-2022 07:28-0400 Diastolic blood pressure 65 mm[Hg] Pardeep Infante DO Work Phone: D[facility]CH [employer] 06-26-2022 07:28-0400 Heart rate 65 /min Pardeep Infante DO Work Phone: D[facility]CH [employer] 06-26-2022 07:28-0400 SaO2% (BldA) [Mass fraction] 96 % Pardeep Infante DO Work Phone: D[facility]CH [employer] 06-26-2022 07:28-0400 Systolic blood pressure 139 mm[Hg] Pardeep Infante DO Work Phone: D[facility]CH [employer] 06-24-2022 10:02-0400 Body height 172.7 cm Pardeep Infante DO Work Phone: D[facility] [employer] 06-24-2022 10:02-0400 Body mass index (BMI) [Ratio] 26.3 kg/m2 Pardeep Infante DO Work Phone: D[facility]CH [employer] 06-24-2022 10:02-0400 Body weight 78.47 kg Pardeep Infante DO Work Phone: [employer] [facility] 06-23-2022 23:00-0400 Diastolic blood pressure 75 mm[Hg] [email or web address] 06-23-2022 23:00-0400 Systolic blood pressure 115 mm[Hg] [email or web address] [facility] 06-23-2022 18:15-0400 SaO2% (BldA) [Mass fraction] 94 % [email or web address] [facility]Sep[facility]ensor [facility] 06-23-2022 12:07-0400 Body mass index (BMI) [Ratio] 26.3 kg/m2 [facility] 06-23-2022 12:07-0400 Body temperature 99.3 [degF] [email or web address] 06-23-2022 12:07-0400 Body weight 78.47 kg [facility] 06-23-2022 12:07-0400 Heart rate 98 /min [facility] 06-23-2022 12:07-0400 Respiratory rate 18 /min [facility] 06-20-2022 12:27-0400 Body height 172.7 cm [facility] 06-20-2022 12:27-0400 Body mass index (BMI) [Ratio] 26.3 kg/m2 [facility] 06-20-2022 12:27-0400 Body temperature 98.29 [degF] [facility] 06-20-2022 12:27-0400 Body weight 78.47 kg [facility] 06-20-2022 12:27-0400 Diastolic blood pressure 83 mm[Hg] [facility] 06-20-2022 12:27-0400 Heart rate 94 /min [facility] 06-20-2022 12:27-0400 Respiratory rate 16 /min [facility] 06-20-2022 12:27-0400 SaO2% (BldA) [Mass fraction] 97 % [facility] 06-20-2022 12:27-0400 Systolic blood pressure 145 mm[Hg] [facility] 10-13-2020 18:28-0500 BP Diastolic 90 mm[Hg] [place], [place] 10-13-2020 18:28-0500 BP Systolic 139 mm[Hg] [facility] , [place] 10-13-2020 18:28-0500 Pulse (Heart Rate) 103 /min [facility], [place] 10-13-2020 18:28-0500 Pulse Oximetry 94 % [place], [place] 10-13-2020 18:28-0500 Respiratory Rate 16 /min [facility] [place] 10-13-2020 17:54-0500 Body Temperature 98.4 [degF] [facility], [place] 10-13-2020 12:21-0500 BMI (Body Mass Index) 25.46 kg/m2 [facility] [place] 10-13-2020 12:21-0500 Body weight 74.84 kg [facility] [place] 10-13-2020 12:21-0500 Height 171.5 cm [facility] , [place] 09-08-2020 13:45-0400 BP Diastolic 74 mm[Hg] [facility] , [place] 09-08-2020 13:45-0400 BP Systolic 146 mm[Hg] [facility] , [place] 09-08-2020 13:45-0400 Pulse (Heart Rate) 84 /min [facility], [place] 09-08-2020 13:45-0400 Pulse Oximetry 96 % [facility] , [place] 09-08-2020 13:45-0400 Respiratory Rate 18 /min [facility] [place] 09-08-2020 13:13-0400 Body Temperature 97.39 [degF] [facility] [place] 09-08-2020 11:39-0400 BMI (Body Mass Index) 26.08 kg/m2 [facility], [place] 09-08-2020 11:39-0400 Body weight 76.66 kg [facility] , [place] 09-08-2020 11:39-0400 Height 171.5 cm [facility] , [place] 08-11-2020 12:06-0400 BMI (Body Mass Index) 25.09 kg/m2 [facility], [place] 08-11-2020 12:06-0400 Body Temperature 98.01 [degF] [facility] [place] 08-11-2020 12:06-0400 Body weight 74.84 kg [facility] , [place] 08-11-2020 12:06-0400 BP Diastolic 84 mm[Hg] [facility] [place] [facility] [place] 08-11-2020 12:06-0400 BP Systolic 175 mm[Hg] [facility] , [place] 08-11-2020 12:06-0400 Height 172.7 cm [facility] , [place] 08-11-2020 12:06-0400 Pulse (Heart Rate) 95 /min [facility], [place] 08-11-2020 12:06-0400 Pulse Oximetry 96 % [place], [place] 08-11-2020 12:06-0400 Respiratory Rate 18 /min [facility], [place] 09-30-2019 11:08-0500 BMI (Body Mass Index) 25.09 kg/m2 [facility], [place] 09-30-2019 11:08-0500 Body Temperature 98.8 [degF] [facility], [place] 09-30-2019 11:08-0500 Body weight 74.84 kg [place], [place] 09-30-2019 11:08-0500 BP Diastolic 73 mm[Hg] [facility] , [place] 09-30-2019 11:08-0500 BP Systolic 127 mm[Hg] [facility] , [place] 09-30-2019 11:08-0500 Pulse (Heart Rate) 91 /min [facility], [place] 09-30-2019 11:08-0500 Pulse Oximetry 96 % [place], [place] 09-30-2019 11:08-0500 Respiratory Rate 18 /min [facility], [place] 09-28-2019 12:27-0500 BMI (Body Mass Index) 25.09 kg/m2 [facility], [place] 09-28-2019 12:27-0500 Body Temperature 99.39 [degF] [facility], [place] 09-28-2019 12:27-0500 Body weight 74.84 kg [facility] , [place] 09-28-2019 12:27-0500 BP Diastolic 92 mm[Hg] [facility] , [place] 09-28-2019 12:27-0500 BP Systolic 150 mm[Hg] [facility] , [place] 09-28-2019 12:27-0500 Pulse Oximetry 97 % [facility] 09-28-2019 12:27-0500 Respiratory Rate 18 /min Bl[facility] HESTELITA Encounters Encounter Date Encounter Type Care Provider Facility Start: 08-15-2024 End: 08-17-2024 [facility] Start: 08-15-2024 End: 08-17-2024 Subsequent hospital visit by physician Amanda Daniel Scan Room [facility] CT Scan Comment on above: Arthropathy of ankle and foot Start: 08-04-2024 End: 08-04-2024 Emergency department patient visit [facility] Start: 06-20-2024 End: 06-20-2024 Office outpatient visit 15 minutes Cristopher Moreira MD Work Phone: [facility] Comment on above: S/P Left tibiotaloca lcaneal arthrodesis (Primary Dx); Chronic pain in left foot; Arthritis of first metatarsophalangeal (MTP) joint of left foot Start: 06-20-2024 ambulatory [facility] Facility:[facility] Start: 06-20-2024 End: 06-20-2024 Subsequent hospital visit by physician Cristopher Moreira MD Work Phone: [facility] [place] Comment on above: Arrived Start: 06-13-2024 ambulatory [facility] Start: 06-10-2024 End: 06-10-2024 ambulatory [facility] Start: 04-23-2024 End: 04-24-2024 ambulatory Alexis Delaney MD Facility:[facility] Start: 04-22-2024 End: 04-23-2024 Emergency department patient visit [facility] Start: 04-16-2024 End: 04-16-2024 ambulatory [facility] Start: 04-16-2024 End: 04-16-2024 Subsequent hospital visit by physician Ibis Quesada PTA [facility] Comment on above: Arrived Start: 04-09-2024 End: 04-09-2024 ambulatory [facility] Start: 04-04-2024 End: 04-04-2024 ambulatory [facility] Start: 04-04-2024 End: 04-04-2024 Subsequent hospital visit by physician Vimal Mina [facility] Comment on above: Arrived Start: 04-02-2024 End: 04-02-2024 ambulatory [facility] Start: 03-26-2024 End: 03-26-2024 ambulatory [facility] Start: 03-21-2024 End: 03-21-2024 ambulatory [facility] Start: 03-19-2024 End: 03-19-2024 Subsequent hospital visit by physician Anand Cazares PT [facility] Start: 03-14-2024 End: 03-14-2024 ambulatory [facility] Start: 03-12-2024 End: 03-12-2024 Subsequent hospital visit by physician Ibis Quesada PTA [facility] Start: 03-07-2024 End: 03-07-2024 ambulatory [facility] Start: 03-05-2024 End: 03-05-2024 Subsequent hospital visit by physician Ibis Quesada PTA [facility] Start: 02-29-2024 End: 02-29-2024 ambulatory [facility] Start: 02-12-2024 End: 02-12-2024 ambulatory Alex Ignacio MD Facility:[facility] Start: 01-18-2024 End: 01-18-2024 Office outpatient visit 15 minutes Cristopher Moreira MD Work Phone: [facility] Comment on above: Chronic pain in left foot (Primary Dx); S/P Left tibiotalocalcaneal arthrodesis; Arthritis of first metatarsophalangeal (MTP) joint of left foot Start: 01-18-2024 ambulatory CRISTOPHER MOREIRA Facility:[facility] Start: 01-01-2024 ambulatory SELF SELF Facility:[facility] Start: 01-01-2024 ambulatory [facility] Facility[facility] Start: 12-14-2023 [facility] Start: 11-24-2023 ambulatory [facility] Start: 11-23-2023 [facility] Start: 10-25-2023 End: 10-25-2023 [facility] Start: 10-25-2023 End: 10-25-2023 Subsequent hospital visit by physician Vimal Mina [facility] Physical Therapy Comment on above: Arrived Start: 10-04-2023 End: 10-04-2023 ambulatory [facility] Start: 09-29-2023 End: 09-29-2023 ambulatory [facility] Start: 09-28-2023 End: 09-28-2023 ambulatory [facility] Start: 09-26-2023 ambulatory [facility] Start: 09-14-2023 End: 09-14-2023 Office outpatient visit 25 minutes Majo Nelson APRN-EXTRUSION DIE REPAIRER Work Phone: [facility] Comment on above: Left ankle pain, uns pecified chronicity (Primary Dx) Start: 09-14-2023 End: 09-14-2023 Subsequent hospital visit by physician Majo Nelson APRN-EXTRUSION DIE REPAIRER Work Phone: [facility] Comment on above: Arrived Start: 09-14-2023 ambulatory [facility] Facility:[facility] Start: 09-08-2023 End: 09-08-2023 ambulatory [facility] Start: 09-04-2023 End: 09-04-2023 ambulatory [facility] Start: 09-01-2023 End: 09-01-2023 ambulatory [facility] Start: 08-30-2023 End: 08-30-2023 ambulatory [facility] Start: 08-21-2023 End: 08-21-2023 ambulatory ABBEY JUAN ALBERTO [facility] Start: 08-02-2023 Telephone encounter Cristopher maloney MD Work Phone: Central Scheduling Comment on above: Order Request Start: 07-01-2023 End: 07-01-2023 Emergency department patient visit Nadege Muñoz DO Work Phone: [facility] ED Comment on above: Acute on chronic mid line low back pain without sciatica (Primary Dx) Start: 06-15-2023 End: 06-15-2023 Postop follow up visit related to original px Majo Pj Tika TEENAGE PROGRAM DIRECTOR-EXTRUSION DIE REPAIRER Work Phone: [facility] Comment on above: Left ankle pain, uns pecified chronicity (Primary Dx) Start: 06-15-2023 End: 06-15-2023 Subsequent hospital visit by physician Majo Nelson TEENAGE PROGRAM DIRECTOR-EXTRUSION DIE REPAIRER Work Phone: [facility] Comment on above: Arrived Start: 05-04-2023 End: 05-04-2023 Postop follow up visit related to original px Majo Pj Tika TEENAGE PROGRAM DIRECTOR-EXTRUSION DIE REPAIRER Work Phone: [facility] Comment on above: Arthritis of left an kle (Primary Dx) Start: 05-04-2023 End: 05-04-2023 Subsequent hospital visit by physician Majo Nelson TEENAGE PROGRAM DIRECTOR-EXTRUSION DIE REPAIRER Work Phone: [facility] Comment on above: Arrived Start: 03-16-2023 End: 03-16-2023 Postop follow up visit related to original px Majo L [place] TEENAGE PROGRAM DIRECTOR-EXTRUSION DIE REPAIRER Work Phone: [facility] Comment on above: Arthritis of left an kle (Primary Dx) Start: 03-14-2023 Telephone encounter Cristopher maloney MD Work Phone: [facility] Comment on above: Order Request Start: 02-28-2023 End: 03-01-2023 Evaluation and management of inpatient Cristopher Moreira MD Work Phone: [email or web address] Comment on above: Arthritis of left an kle Start: 02-28-2023 End: 03-01-2023 Preprocedural examination done Cristopher Moreira MD Work Phone: [email or web address] Start: 02-22-2023 End: 02-22-2023 Office outpatient visit 25 minutes Carissa Noel TEENAGE PROGRAM DIRECTOR-EXTRUSION DIE REPAIRER Work Phone: Pre-Procedure Evaluation and Assessment [facility] Comment on above: Pre-op evaluation (P rimary Dx); Essential hypertension; Alcohol use; RLS (restless legs syndrome); Lumbar radiculopathy; Hyponatremia Start: 02-22-2023 End: 02-22-2023 Preprocedural examination done Carissa Noel APRN-EXTRUSION DIE REPAIRER Work Phone: Pre-Procedure Evaluation and Assessment [facility]patient [facility] Start: 02-13-2023 End: 02-13-2023 Office outpatient visit 25 minutes Cristopher Moreira MD Work Phone: Sports Medicine [facility] Comment on above: 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); Arthritis of left subtalar joint; Arthritis of first metatarsophalangeal (MTP) joint of left foot Start: 02-13-2023 End: 02-13-2023 Subsequent hospital visit by physician Cristopher Moreira MD Work Phone: Imaging [facility] Comment on above: Arrived Start: 02-06-2023 End: 02-06-2023 Subsequent hospital visit by physician [facility] Start: 01-30-2023 End: 01-30-2023 Subsequent hospital visit by physician [facility] Start: 01-16-2023 End: 01-16-2023 Subsequent hospital visit by physician [facility] Start: 01-12-2023 End: 01-12-2023 Postop follow up visit related to original px Majo Nelson TEENAGE PROGRAM DIRECTOR-EXTRUSION DIE REPAIRER Work Phone: [facility] [place] Comment on above: Postop check (Primar y Dx); Staphylococcal arthritis of left ankle; Arthritis of left subtalar joint Start: 01-11-2023 End: 01-12-2023 Emergency department patient visit Landen Mike MD Work Phone: [facility] ED Comment on above: Dyspnea, unspecified type (Primary Dx) Start: 01-09-2023 End: 01-09-2023 [facility] Start: 01-03-2023 Telephone encounter Cristopher [...] Moreira MD Work Phone: [facility] Comment on above: Arrived Start: 12-08-2022 End: 12-08-2022 Subsequent hospital visit by physician [facility] [address] [facility] Comment on above: Septic arthritis of left ankle, due to unspecified organism (HCC) (Primary Dx) Start: 12-07-2022 End: 12-07-2022 Subsequent [facility] [facility] [address] [facility] ([facility]) Comment on above: Septic arthritis of left ankle, due to unspecified organism (HCC) (Primary Dx) Start: 12-06-2022 End: 12-06-2022 Subsequent hospital visit by physician [facility] [address] [facility] ([facility]) Comment on above: Septic arthritis of left ankle, due to unspecified organism (HCC) (Primary Dx) Start: 12-05-2022 End: 12-05-2022 Subsequent hospital visit by physician [facility] [address] [facility] ([facility]) Comment on above: Septic arthritis of left ankle, due to unspecified organism (HCC) (Primary Dx) Start: 12-04-2022 End: 12-04-2022 Subsequent hospital visit by physician [facility] Treatment [address] [facility] ([facility]) Comment on above: Septic arthritis of left ankle, due to unspecified organism (HCC) (Primary Dx) Start: 12-03-2022 End: 12-03-2022 Subsequent hospital visit by physician [facility] Treatment [address] [facility]ty [facility] (MOB) Comment on above: Septic arthritis of left ankle, due to unspecified organism (HCC) (Primary Dx) Start: 12-02-2022 End: 12-02-2022 Subsequent hospital visit by physician [facility] Op Treatment [address] [facility]ty [facility] (MOB) Comment on above: Septic arthritis of left ankle, due to unspecified organism (HCC) (Primary Dx) Start: 12-01-2022 End: 12-01-2022 Subsequent hospital visit by physician [facility] Op Treatment [address] [facility] ([facility]) Comment on above: Septic arthritis of left ankle, due to unspecified organism (HCC) (Primary Dx) Start: 11-30-2022 End: 11-30-2022 Subsequent hospital visit by physician [facility] Op Treatment [address] (MOB) Comment on above: Septic arthritis of left ankle, due to unspecified organism (HCC) (Primary Dx) Start: 11-29-2022 End: 11-29-2022 Subsequent hospital visit by physician [facility] Op Treatment [address] (MOB) Comment on above: Septic arthritis of left ankle, due to unspecified organism (HCC) (Primary Dx) Start: 11-28-2022 End: 11-28-2022 Subsequent hospital visit by physician [facility] Treatment [address] [facility]ty [facility] (MOB) Comment on above: Septic arthritis of left ankle, due to unspecified organism (HCC) (Primary Dx) Start: 11-27-2022 End: 11-27-2022 Subsequent hospital visit by physician [facility] Op Treatment [address] [facility]ty [facility] (MOB) Comment on above: Septic arthritis of left ankle, due to unspecified organism (HCC) (Primary Dx) Start: 11-26-2022 End: 11-26-2022 Subsequent hospital visit by physician [facility] Op Treatment [address] (MOB) Comment on above: Septic arthritis of left ankle, due to unspecified organism (HCC) (Primary Dx) Start: 11-25-2022 End: 11-25-2022 Subsequent hospital visit by physician Akil Saini DPM Work Phone: [facility] Comment on above: Septic arthritis of left ankle, due to unspecified organism (HCC) (Primary Dx); Posterior tibial tendinitis of left leg Start: 10-24-2022 End: 10-24-2022 Subsequent hospital visit by physician Estuardo Munoz PT [facility] Physical Therapy Comment on above: Arrived Start: 08-09-2022 End: 08-11-2022 Evaluation and management of inpatient DUANE BRAGA [facility] Start: 07-29-2022 End: 07-29-2022 [facility] Comment on above: Septic arthritis of left ankle, due to unspecified organism (HCC) Start: 07-11-2022 End: 07-11-2022 Subsequent hospital visit by physician [facility] Laboratory Comment on above: Septic arthritis of left ankle, due to unspecified organism (HCC) Start: 07-09-2022 End: 07-09-2022 Subsequent hospital visit by physician [facility] Laboratory Comment on above: Septic arthritis of left ankle, due to unspecified organism (HCC) Start: 07-07-2022 End: 07-07-2022 Subsequent [facility] Comment on above: Septic arthritis of left ankle, due to unspecified organism (HCC) Start: 07-05-2022 End: 07-06-2022 ambulatory ROM TEJEDA [facility] Start: 07-05-2022 End: 07-05-2022 [facility] Comment on above: Septic arthritis of left ankle, due to unspecified organism (HCC) Start: 07-04-2022 End: 07-04-2022 Emergency department patient visit [facility] ED Comment on above: Post-op pain (Primar y Dx) Start: 06-24-2022 End: 06-26-2022 Evaluation and management of inpatient PARDEEP INFANTE [facility] Start: 06-24-2022 End: 06-26-2022 Evaluation and management of inpatient Pardeep Infante DO Work Phone: [address] Ortho/Med Surg Comment on above: Post-op pain (Primar y Dx); Septic arthritis of left ankle, due to unspecified organism (HCC) Start: 06-23-2022 End: 06-24-2022 Emergency department patient visit [facility] ED Comment on above: Septic arthritis of left ankle, due to unspecified organism (HCC) (Primary Dx) Start: 06-20-2022 End: 06-20-2022 Emergency department patient visit [facility] ED Comment on above: Chronic pain of left ankle (Primary Dx) Start: 09-15-2021 ambulatory TYRELL WEINBERG Facility: [facility] Start: 07-13-2021 End: 07-13-2021 ambulatory [facility] Facility:[facility] Start: 06-29-2021 End: 06-29-2021 Subsequent [facility] Start: 05-19-2021 ambulatory [facility] Facility:[facility] Start: 05-19-2021 ambulatory SOL Laddi lity:[facility] Start: 10-13-2020 End: 10-13-2020 Evaluation and management of inpatient Yovanny Cunha Work Phone: [facility] Comment on above: Postoperative pain ( Primary Dx) Start: 10-06-2020 End: 10-10-2020 Subsequent hospital visit by physician Amanda Covid19 Pat Screening Schedule [facility] Comment on above: Pre-op testing Start: 09-08-2020 End: 09-08-2020 Subsequent hospital visit by physician Aroldo Montejo Work Phone: [facility] Start: 08-11-2020 End: 08-11-2020 Subsequent hospital visit by physician Aroldo Montejo Work Phone: [facility] Start: 06-17-2020 End: 06-17-2020 Subsequent hospital visit by physician [facility] Drawing Room [facility] Laboratory Comment on above: Arrived Start: 05-25-2020 End: 05-27-2020 Subsequent hospital visit by physician [facility] Mri Scanner [facility] MRI Comment on above: Low back pain, unspe cified back pain laterality, unspecified chronicity, unspecified whether sciatica present Start: 05-18-2020 End: 05-18-2020 Subsequent hospital visit by physician [facility] Drawing Room [facility] Laboratory Comment on above: Arrived Start: 09-30-2019 End: 09-30-2019 Emergency department patient visit [facility] ED Comment on above: Cough (Primary Dx) Start: 09-28-2019 End: 09-28-2019 Emergency department patient visit [facility] ED Comment on above: Cough (Primary Dx) Start: 07-31-2019 End: 07-31-2019 Subsequent hospital visit by physician [facility] Comment on above: No Show Start: 07-29-2019 End: 07-29-2019 Subsequent hospital visit by physician Vimal [facility] Physical Therapy Start: 07-24-2019 End: 07-24-2019 Subsequent hospital visit by physician Vimal [facility] Physical Therapy Start: 07-08-2019 End: 07-08-2019 Subsequent hospital visit by physician [facility] Comment on above: Arrived Start: 07-03-2019 End: 07-03-2019 Subsequent hospital visit by physician [facility]imal [facility] Comment on above: Arrived Start: 07-01-2019 End: 07-01-2019 Subsequent hospital visit by physician [facility]imal [facility]ina [facility] Comment on above: Arrived Start: 06-24-2019 End: 06-24-2019 Subsequent hospital visit by physician [facility]imal [facility] Comment on above: Arrived Start: 10-29-2018 End: 10-29-2018 Patient encounter procedure MAIRA YOUSIF Facility:[facility] Procedures Date Procedure Procedure Detail Performing Clinician Start: 08-15-2024 Ct lower extremity w /o contrast material Anant Malik DPM Work Phone: Start: 06-20-2024 Radex ankle complete minimum 3 views Cristopher Moreira MD Work Phone: Start: 09-14-2023 Radex ankle complete minimum 3 views Majo Nelson TEENAGE PROGRAM DIRECTOR-EXTRUSION DIE REPAIRER Work Phone: Start: 07-01-2023 Ct head/brain w/o co ntrast material Nadege J Muñoz DO Work Phone: Start: 07-01-2023 End: 07-01-2023 Ct cervical spine w/o contrast material Nadege J Muñoz DO Work Phone: Start: 06-15-2023 Radex ankle complete minimum 3 views Majo Nelson TEENAGE PROGRAM DIRECTOR-EXTRUSION DIE REPAIRER Work Phone: Start: 05-04-2023 Radex ankle complete minimum 3 views Majo Nelson TEENAGE PROGRAM DIRECTOR-EXTRUSION DIE REPAIRER Work Phone: Start: 03-16-2023 Cast sup sht leg spl nt plstr Majo Nelson TEENAGE PROGRAM DIRECTOR-EXTRUSION DIE REPAIRER Work Phone: Start: 03-01-2023 CBC AND ELECTRONIC [...] Start: 07-29-2022 C-reactive protein Erlinda e Truss TEENAGE PROGRAM DIRECTOR - EXTRUSION DIE REPAIRER Work Phone: Start: 07-11-2022 C-reactive protein Erlinda e Truss TEENAGE PROGRAM DIRECTOR - EXTRUSION DIE REPAIRER Work Phone: Start: 07-09-2022 C-reactive protein Erlinda e Truss TEENAGE PROGRAM DIRECTOR - EXTRUSION DIE REPAIRER Work Phone: Start: 07-07-2022 C-reactive protein Erlinda e Truss TEENAGE PROGRAM DIRECTOR - EXTRUSION DIE REPAIRER Work Phone: Start: 07-05-2022 C-reactive protein Erlinda e Truss TEENAGE PROGRAM DIRECTOR - EXTRUSION DIE REPAIRER Work Phone: Start: 07-04-2022 Ct lower extremity [...] Ct lower extremity w/contrast material Cassi Grullon TEENAGE PROGRAM DIRECTOR - EXTRUSION DIE REPAIRER Work Phone: Start: 06-23-2022 C-reactive protein Anabell Grullon TEENAGE PROGRAM DIRECTOR - EXTRUSION DIE REPAIRER Work Phone: Start: 06-23-2022 Comprehensive metabo lic panel Cassi Grullon TEENAGE PROGRAM DIRECTOR - EXTRUSION DIE REPAIRER Work Phone: Start: 06-29-2021 Basic metabolic pane l calcium total Congregation R Weinberg DO Work Phone: Start: 10-13-2020 [...] Activity Detail Author Start: 02-05-2025 ambulatory Ambulatory Facility:[facility] Start: 07-14-2024 COVID-19 Vaccine ( season) COVID-19 Vaccine ( season) [facility] Start: 07-14-2024 Influenza vaccination INFLUENZA VACCINE (#1) [facility] Start: 06-13-2024 Influenza vaccination [facility] Start: 04-23-2024 End: 04-23-2024 Patient encounter procedure 04/23/2024 12:30 PM EDT Appointment [facility] Physical Therapy [address] [place] [phone] Anand Cazares PT [facility] Physical Therapy Start: 04-18-2024 End: 04-18-2024 Patient encounter procedure [facility] Start: 04-16-2024 End: 04-16-2024 Patient encounter procedure [facility] Start: 04-11-2024 End: 04-11-2024 Patient encounter procedure [facility] Start: 04-10-2024 End: 04-10-2024 Patient encounter procedure 04/10/2024 3:30 PM EDT [facility]ment [facility] [address] [place] [phone] Vimal Mina [facility] Physical Therapy Start: 04-09-2024 End: 04-09-2024 Patient encounter procedure 04/09/2024 1:15 PM EDT [facility]ment [facility] [address] [place] [phone] Vimal Mina [facility] Physical Therapy Start: 04-04-2024 End: 04-04-2024 Patient encounter procedure [facility] Start: 04-02-2024 End: 04-02-2024 Patient encounter procedure [facility] Start: 03-28-2024 End: 03-28-2024 Patient encounter procedure [facility] Start: 03-26-2024 End: 03-26-2024 Patient encounter [facility] Start: 03-21-2024 End: 03-21-2024 Patient encounter procedure 03/21/2024 2:00 PM EDT Appointment [facility] Physical Therapy [address] [place] [phone] Baljit Contreras PTA [facility] Physical Therapy Start: 03-19-2024 End: 03-19-2024 Patient encounter procedure 03/19/2024 2:45 PM EDT Appointment [facility] [address] [place] [phone] Anand Cazares PT [facility] Physical Therapy Start: 03-14-2024 End: 03-14-2024 Patient encounter procedure 03/14/2024 1:00 PM EDT Appointment [facility] [address] [place] [phone] Vimal Mina [facility] Physical Therapy Start: 03-12-2024 End: 03-12-2024 Patient encounter procedure 03/12/2024 1:45 PM EDT Appointment [facility] [address] [place] [phone] Ibis Quesada PTA Print PT sched. [facility] Physical Therapy Comment on above: Print PT sched. Start: 01-18-2024 End: 01-18-2024 Patient encounter procedure 01/18/2024 11:45 AM EST [facility] [address] [address] Cristopher Moreira MD [address] [place] [address] (Fax) [facility] [place] Start: 10-09-2023 Annual Wellness Visit (Medicare) Annual Wellness Visit (Medicare) [facility] Start: 09-14-2023 End: 09-14-2023 Patient encounter procedure 09/14/2023 1:30 PM EDT [facility] [address] [address] Majo Nelson, TEENAGE PROGRAM DIRECTOR-EXTRUSION DIE REPAIRER [address] [place] [address] (Fax) [facility] Start: 07-14-2023 COVID-19 VACCINE ( season) COVID-19 VACCINE ( season) [facility] Start: 07-14-2023 COVID-19 Vaccine ( season) COVID-19 Vaccine ( season) [facility] Start: 07-14-2023 Influenza vaccination [facility] Start: 06-15-2023 End: 06-15-2023 Patient encounter procedure 06/15/2023 1:30 PM EDT [facility] [address] [address] Majo Nelson, TEENAGE PROGRAM DIRECTOR-EXTRUSION DIE REPAIRER [address] [place] [address] [facility] Start: 06-13-2023 Influenza vaccination Flu vaccine (#1) [facility] Start: 04-13-2023 End: 04-13-2023 Patient encounter procedure 04/13/2023 Office Visit Sports Medicine Majo Nelson, TEENAGE PROGRAM DIRECTOR-EXTRUSION DIE REPAIRER [address] [place] [phone] (Fax) [facility] Start: 04-06-2023 End: 04-06-2023 Patient encounter procedure 04/06/2023 Office Visit Sports Majo Banerjee, TEENAGE PROGRAM DIRECTOR-EXTRUSION DIE REPAIRER [address] [place] [phone] [facility] Start: 03-16-2023 End: 03-16-2023 Patient encounter procedure 03/16/2023 Office Visit Sports Majo Banerjee TEENAGE PROGRAM DIRECTOR-EXTRUSION DIE REPAIRER [address] [place] [address] (Fax) [facility] Start: 02-28-2023 End: 02-28-2023 Arthrodesis subtalar ARTHRODESIS [...] Routine Pre-op evaluation Expected: 02/22/2023, Expires: 02/23/2024 [facility] Comment on above: Expected: 02/22/2023, Expires: Start: 02-22-2023 End: 02-22-2023 ambulatory 02/22/2023 Pre-Operative Assessment Multispecialty Pre-Procedure Evaluation and Assessment Outpatient Care [facility] Start: 02-14-2023 End: 02-14-2023 ambulatory 02/14/2023 Telemed Clin Support Multispecialty Comprehensive Pre Anesthesia Center [facility] Start: 02-13-2023 End: 02-13-2023 Patient encounter procedure 02/13/2023 Office Visit Cristopher Allred MD [address] [place] [address] [facility] Start: 02-09-2023 End: 02-09-2023 Patient encounter procedure 02/09/2023 Office Visit Majo Lynn, TEENAGE PROGRAM DIRECTOR-EXTRUSION DIE REPAIRER [address] [place] [address] [facility] Start: 02-08-2023 End: 02-08-2023 Telemedicine consultation with patient 02/08/2023 Telemedicine Infectious Diseases Barbie Mendoza, TEENAGE PROGRAM DIRECTOR-EXTRUSION DIE REPAIRER [address] [place] [phone] Infectious Diseases Care [facility] Outpatient Care Start: 02-06-2023 End: 02-06-2023 Patient encounter procedure 02/06/2023 Office Visit Cristopher Allred MD [address] [place] [address] [facility] Medicine [facility] Start: 01-16-2023 Annual Wellness Visit (AWV) Annual Wellness Visit (AWV) [facility] Start: 01-12-2023 End: 01-12-2023 Patient encounter procedure 01/12/2023 Office Visit Majo Lynn, TEENAGE PROGRAM DIRECTOR-EXTRUSION DIE REPAIRER [address] [place] [address] [facility] [place] Start: 12-28-2022 End: 12-28-2022 Arthroscopy ankle surgical [...] Patient encounter procedure 12/09/2022 Appointment Infusion Therapy [facility] ([facility]) Start: 12-08-2022 Subsequent hospital visit by physician 12/08/2022 Hospital Encounter [facility] Start: 12-08-2022 End: 12-08-2022 Patient encounter procedure 12/08/2022 Appointment [facility] Start: 12-07-2022 End: 12-07-2022 Patient encounter procedure 12/07/2022 Appointment [facility] Start: 12-06-2022 End: 12-06-2022 Patient encounter procedure 12/06/2022 Appointment Infusion Therapy [facility] ([facility]) Start: 12-05-2022 Annual Wellness Visit (AWV) Annual Wellness Visit (AWV) [facility] Start: 12-05-2022 End: 12-05-2022 Patient encounter procedure [...] tendinitis of left leg 11/25/2022 12:04 PM [facility] Start: 11-25-2022 End: 11-25-2022 Arthroscopy ankle surgical debridement limited ANKLE ARTHROSCOPY Posterior tibial tendinitis of left leg 11/25/2022 12:04 PM [facility] Start: 11-25-2022 End: 11-25-2022 Rpr primary disrupted ligament ankle collateral ANKLE LIGAMENT TENDON REPAIR Posterior tibial tendinitis of left leg 11/25/2022 12:04 PM [facility] Start: 11-25-2022 End: 11-25-2022 Tr/trnspl 1 tdn w/musc redirion/rerouting dp FOOT TENDON TRANSFER REPAIR Posterior tibial tendinitis of left leg 11/25/2022 12:04 PM [facility] Start: 09-28-2022 Annual Wellness Visit (AWV) Annual Wellness Visit (AWV) [facility] Start: 08-02-2022 End: 08-02-2022 Patient encounter procedure 08/02/2022 Office Visit Orthopedic Surgery Pardeep Infante DO [address] [place] [address] [facility] Start: 07-14-2022 Influenza vaccination [facility] Start: 07-12-2022 End: 07-12-2022 Patient encounter procedure 07/12/2022 Office Visit Orthopedic Surgery Pardeep Infante DO [address] [place] [address] [facility] Start: 07-05-2022 End: 07-05-2022 Patient encounter procedure 07/05/2022 Office Visit Orthopedic Surgery Pardeep Infante DO [address] [place] [address] [facility] Start: 06-13-2022 Influenza vaccination Flu vaccine (#1) [facility] Start: 10-09-2021 Creatinine measurement Creatinine monitoring [facility] [place] [place] [place] Start: 10-09-2021 Potassium monitoring Potassium monitoring [facility] [place], [place] Start: 07-14-2021 Influenza vaccination Flu vaccine (#1) [facility] Work Phone: Start: 05-19-2021 COVID-19 Vaccine (2 - Booster for Delmer series) COVID-19 Vaccine (2 - Booster for Delmer series) [facility] Start: 05-18-2021 Creatinine measurement Creatinine monitoring [employer] [facility] Start: 10-13-2020 End: 10-13-2020 Hospital Encounter [facility] Comment on above: SHOULDER TOTAL ARTHROPLASTY REVERSE Start: 09-15-2020 End: 09-15-2020 Hospital Encounter [facility] Comment on above: SHOULDER TOTAL ARTHROPLASTY REVERSE Start: 08-09-2020 Annual Wellness Visit (AWV) Annual Wellness Visit (AWV) [facility] Start: 07-14-2020 Influenza vaccination Flu vaccine (#1) [facility] Start: 05-25-2020 End: 05-25-2020 Appointment 05/25/2020 Appointment Radiology [facility] Start: 02-29-2020 Creatinine measurement Creatinine monitoring [employer] [facility] Start: 02-29-2020 Creatinine monitoring Creatinine monitoring e|tab [facility] Start: 01-08-2020 Potassium monitoring Potassium monitoring [facility]EL[facility] Start: 11-14-2019 End: 11-14-2019 Appointment 11/14/2019 Appointment Radiology [facility] Start: 09-22-2019 Annual Wellness Visit (AWV) Annual Wellness Visit (AWV) [facility] Start: 08-12-2019 End: 08-12-2019 Appointment 08/12/2019 Appointment Physical Therapy Anand Cazares, PT [facility] Physical Therapy Start: 08-07-2019 End: 08-07-2019 Appointment 08/07/2019 Appointment Physical Therapy Anand Cazares, PT [facility] Physical Therapy Start: 2019 End: 2019 Appointment 2019 Appointment Physical Therapy Vimal Mina [facility] Physical Therapy Start: 2019 Pneumococcal 65+ years Vaccine (1 - PCV) Pneumococcal 65+ years Vaccine (1 - PCV) [facility] Start: 2019 Pneumococcal 65+ years Vaccine (1 of 1 - PCV) Pneumococcal 65+ years Vaccine (1 of 1 - PCV) [facility] Start: 2019 Pneumococcal 65+ years Vaccine (1 of 1 - PPSV23) Pneumococcal 65+ years Vaccine (1 of 1 - PPSV23) [place], [place] Start: 2019 Pneumococcal 65+ years Vaccine (1 of 2 - PCV13) Pneumococcal 65+ years Vaccine (1 of 2 - PCV13) [place] Start: 2019 Pneumococcal vaccination [facility] Start: 07-31-2019 End: 07-31-2019 Appointment 07/31/2019 Appointment Physical Therapy [facility] Start: 07-29-2019 End: 07-29-2019 Appointment 07/29/2019 Appointment Physical Therapy [facility]imal Mina [facility] Start: 07-24-2019 End: 07-24-2019 Appointment 07/24/2019 Appointment Physical Therapy [facility]imal Mina [facility] Start: 07-14-2019 Influenza vaccination Flu vaccine (#1) [place] Start: 07-10-2019 End: 07-10-2019 Appointment 07/10/2019 Appointment Physical Therapy [facility]imal [facility] Start: 07-08-2019 End: 07-08-2019 Appointment 07/08/2019 Appointment Physical Therapy [facility]imal [facility] Start: 07-03-2019 End: 07-03-2019 Appointment 07/03/2019 Appointment Physical Therapy [facility] Start: 07-01-2019 End: 07-01-2019 Appointment 07/01/2019 Appointment Physical Therapy Vimal Mina [facility] Physical Therapy Start: 06-26-2019 End: 06-26-2019 Appointment 06/26/2019 Appointment Physical Therapy Roxana Suazo PT [facility] Physical Therapy Start: 06-21-2019 Annual Wellness Visit (AWV) Annual Wellness Visit (AWV) [place] Start: 2017 Annual Wellness Visit (AWV) Annual Wellness Visit (AWV) [place] Start: 11-13-2015 DTaP/Tdap/Td vaccine (2 - Td or Tdap) DTaP/Tdap/Td vaccine (2 - Td or Tdap) [facility] Start: 2014 Respiratory Syncytial Virus (RSV) age 60 yrs+ (1 - 1-dose 60+ series) Respiratory Syncytial Virus (RSV) age 60 yrs+ (1 - 1-dose 60+ series) [facility] Start: 2014 Respiratory Syncytial Virus (RSV) or age 60 yrs+ (1 - 1-dose 60+ series) Respiratory Syncytial Virus (RSV) or age 60 yrs+ (1 - 1-dose 60+ series) [facility] Start: 11-14-2005 DTaP/Tdap/Td vaccine (1 - Tdap) DTaP/Tdap/Td vaccine (1 - Tdap) [facility] Start: 2004 Colon cancer screen colonoscopy Colon cancer screen colonoscopy [place], [place] Start: 2004 Prostate specific antigen measurement PROSTATE CANCER SCREENING DISCUSSION [facility] Start: 2004 Screening for malignant neoplasm of colon Colon cancer screen colonoscopy [place], [place] Start: 2004 Shingles Vaccine (1 of 2) Shingles Vaccine (1 of 2) [facility] Start: 2004 Zoster vaccine hzv live for subcutaneous use ZOSTER (SHINGLES) VACCINE (1 of 2) [facility] Start: 1999 Screening for malignant neoplasm of colon [facility] Start: 1994 Diabetes screen Diabetes screen [place], [place] Start: 1994 Lipid panel [facility] Start: 1994 Lipid screen Lipid screen [place] Start: 1994 Prostate specific antigen measurement Prostate Specific Antigen (PSA) Screening or Monitoring [facility] Start: 1989 Diabetes screen Diabetes screen [facility] Start: 1973 DTaP/Tdap/Td vaccine (1 - Tdap) DTaP/Tdap/Td vaccine (1 - Tdap) [facility] Start: 1973 Third diphtheria, tetanus and acellular pertussis (DTaP) vaccination TDAP (ADULT) [facility] Start: 1972 Hepatitis C screening Hepatitis C screen [facility] Start: 1969 HIV screen HIV screen [place], [place] Start: 1969 HIV screening HIV screen [place] Start: 1966 COVID-19 Vaccine (1) COVID-19 Vaccine (1) [facility] Work Phone: Start: 1966 Depression Screen Depression Screen [facility] Start: 1965 DTaP/Tdap/Td vaccine (1 - Tdap) DTaP/Tdap/Td vaccine (1 - Tdap) [place] Start: 1960 Pneumococcal 65+ years Vaccine (1 - PCV) Pneumococcal 65+ years Vaccine (1 - PCV) [facility] Start: 02-02-1955 COVID-19 Vaccine (#1) COVID-19 Vaccine (#1) [facility] Start: 1954 Annual Wellness Visit (AWV) Annual Wellness Visit (AWV) [facility] Start: 1954 Hepatitis C screen Hepatitis C screen [place], [place] Start: 1954 Hepatitis C screening [facility] Start: 1954 Tetanus vaccination TETANUS [facility] ANAEROBE CULTURE [facility] ANAEROBE CULTURE [facility] Comment on above: Release Upon Ordering for 1 Occurrences starting 02/28/2023 Bacteria identified in Blood by Culture BLOOD CULTURE Microbiology Urgent 12/31/2022 1:36 PM EST [facility] Bacteria identified in Unspecified specimen by Culture BACTERIAL CULTURE AND DIRECT SMEAR, LESION, TISSUE, DEVICE Microbiology Routine 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 02/28/2023 12:10 PM EDT [facility] End: 08-11-2020 Blood glucose - POCT Blood glucose - POCT Point of Care Testing Routine One Time for 1 Occurrences starting 08/11/2020 until 08/11/2020 [place] Comment on above: One Time for 1 Occurrences starting 07/15 until 08/11/2020 End: 09-08-2020 Blood glucose - POCT Blood glucose - POCT Point of Care Testing Routine One Time for 1 Occurrences starting 09/08/2020 until 09/08/2020 [place] Comment on above: One Time for 1 Occurrences starting 08/14 until 09/08/2020 End: 01-02-2024 BMP WITHOUT GLUCOSE BMP WITHOUT GLUCOSE Lab Routine Chronic osteomyelitis of left ankle Twice a Week for 6 Occurrences starting 01/02/2023 until 01/02/2024 [facility] Comment on above: Twice a Week for 6 Occurrences starting 01/02/2023 until 01/02/2024 End: 06-27-2022 C-reactive protein C-Reactive Protein Lab Routine Q48H for 3 Days starting 06/25/2022 until 06/27/2022, 1 completed [employer] [employer] Phone: Comment on above: Q48H for 3 Days starting 06/25/2022 unti l 06/27/2022, 1 completed Cell Count with Differential, Body Fluid Cell Count with Differential, Body Fluid Lab Stat [employer] Label print 06/24/2022 7:20 AM EDT [employer] Work Phone: End: 01-02-2024 Complete blood count with white cell differential, automated CBC, EDIF, PLATELET Lab Routine Chronic osteomyelitis of left ankle Once a week for 6 Occurrences starting 01/02/2023 until 01/02/2024 [facility] Comment on above: Once a week for 6 Occurrences starting 0 01/02/2023 until 01/02/2024 End: 06-24-2022 Crystals, Body Fluid [facility] [place] Phone: Comment on above: One Time for 1 Occurrences starting 06/13 until 06/24/2022 Crystals, Body Fluid [employer] Phone: Comment on above: Release Upon Ordering for 1 Occurrences starting 11/25/2022 End: 06-23-2022 Culture, Anaerobic and Aerobic [facility] [place] [employer] Phone: Comment on above: One Time for 1 Occurrences starting 06/13 until 06/23/2022 Culture, Anaerobic a nd Aerobic Culture, Anaerobic and Aerobic Microbiology Stat [employer] Label print 06/24/2022 4:27 AM EDT [employer] Work Phone: Culture, Anaerobic a nd Aerobic Culture, Anaerobic and Aerobic Microbiology Routine Septic arthritis of left ankle, due to unspecified organism (HCC) 06/24/2022 11:42 AM EDT [facility] [place] Phone: Culture, Body Fluid [facility] [employer] Phone: Comment on above: Release Upon Ordering for 1 Occurrences starting 11/25/2022 Culture, Tissue DUTCH [employer] Phone: Comment on above: Release Upon Ordering for 1 Occurrences starting 11/25/2022 Differential, Body Fluid Differential, Body Fluid Lab Routine 11/25/2022 1:00 PM EST [facility] [place] Phone: Fungus identified in Unspecified specimen by Culture [facility] Fungus identified in Unspecified specimen by Culture FUNGUS CULTURE Microbiology Routine 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 02/28/2023 12:10 PM EDT [facility] End: 11-25-2022 INITIATE PACU OXYGEN THERAPY PROTOCOL Initiate PACU Oxygen Therapy Protocol Respiratory Care Routine Continuous until discontinued starting 11/25/2022 [employer] [place] Phone: Comment on above: Continuous until discontinued starting 0 11/25/2022 LAB INSTRUCTIONS LAB INSTRUCTION S Lab Routine Chronic osteomyelitis of left ankle Ordered: 01/02/2023 [facility] Comment on above: Ordered: 01/02/2023 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 [facility] 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 [place] [place] Comment on above: Daily until discontinued starting 2019 Oxygen therapy [Minimum Data Set] Initiate Oxygen Therapy Protocol Respiratory Care Routine As Needed until discontinued starting 06/24/2022 [employer] Phone: Comment on above: As Needed until discontinued starting Oxygen therapy [Minimum Data Set] Initiate Oxygen Therapy Protocol Respiratory Care Routine As Needed until discontinued starting 06/24/2022 [employer] Phone: Comment on above: As Needed until discontinued starting End: 08-11-2020 , urine , urine Lab Routine One Time for 1 Occurrences starting 08/11/2020 until 08/11/2020 [facility] Comment on above: One Time for 1 Occurrences starting 07/15 until 08/11/2020 End: 09-08-2020 , urine , urine Lab Routine One Time for 1 Occurrences starting 09/08/2020 until 09/08/2020 [facility] Comment on above: One Time for 1 Occurrences starting 08/14 until 09/08/2020 End: 02-28-2023 RF Greater than 1 hour [facility] Comment on above: One Time for 1 Occurrences starting 02/11 until 02/28/2023 Spirometry panel Incentive sujit metry Respiratory Care Routine Every 2hr while awake until discontinued starting 10/13/2020 [facility] Comment on above: Every 2hr while awake until discontinued starting 10/13/2020 Spirometry panel Incentive sujit metry Respiratory Care Routine Every 2hr while awake until discontinued starting 06/24/2022 [employer] Phone: Comment on above: Every 2hr while awake until discontinued starting 06/24/2022 SURG PATH REQUEST [facility] Comment on above: Release Upon Ordering for 1 Occurrences starting 12/30/2022, 1 completed Payers Date Payer Category Payer Medicare 2021 Unknown [id number] 2019 Medicare MEDICARE MEDICAR E PART A AND B xxxxxxxxxx 2019-Present [phone] [place] [address] xxxxxxxxxx [id number] 2019 Medicare MEDICARE MEDICAR E PART A AND B xxxxxxxxxxx 2019-Present [phone] [place] [address] xxxxxxxxxxx [id number] .[id number] 2019 Medicare MEDICARE MEDICAR E PART A AND B [id number] 2019-Present [phone] [place] [address] [id number] .[id number] 2019 Medicare [id number] [id number] .[id number] 2018 Unknown xxxxxxxxx 1.2.840.041990.1.13.239.2.7.3 .[id number] 2018 Unknown [id number] 1.2.840.219219.1.13.239.2.7.3 .[id number] 2017 Unknown [facility] ATTENTION CBO/1336F [facility] CBO/1336 [id number] 2017-Present [address] [address] [id number] [id number].3 .288449.315 2017 Unknown [facility] ATTENTION CBO/1336F [facility] CBO/1336F [id number] 2017-Present [address] [place] [address] [id number] 1.2.840.169353.1.13.239.2.7.3 .563120.315 2016 Self-pay 1998 Unknown [id number] 1.2.840.451928.1.13.239.2.7.3 .659465.315 1998 Unknown [id number] 1.2.840.045679.1.13.239.2.7.3 .319626.315 1998 Unknown [id number] 1954 Unknown [id number] 2.16.840.1.940141.3.579.2.754 1954 Unknown [id number] 2.16.840.1.717846.3.579.2.478 1954 Unknown [id number] 2.16.840.1.285825.3.579.2.478 1954 Unknown [id number] 2.16.840.1.436047.3.579.2.478 1954 Unknown [id number] 2.16.840.1.941979.3.579.2.478 1954 Unknown [id number] 2.16.840.1.932992.3.579.2.478 1954 Unknown [id number] 2.16.840.1.540681.3.579.2.478 1954 Unknown [id number] 2.16.840.1.520239.3.579.2.175 1954 Unknown [id number] 2.16.840.1.774390.3.579.2.175 1954 Unknown [id number] 2.16.840.1.404253.3.579.2.175 1954 Unknown [id number] 2.16.840.1.916783.3.579.2.196 1954 Unknown [id number] 2.16.840.1.283983.3.579.2.196 1954 Unknown [id number] 2.16.840.1.180328.3.579.2.196 1954 Unknown [id number] 2.16.840.1.835368.3.579.2.173 1954 Unknown [id number] 2.16.840.1.097710.3.579.2.173 1954 Unknown [id number] 2.16.840.1.465382.3.579.2.173 1954 Unknown [id number] 2.16.840.1.681808.3.579.2. 1954 Unknown [id number] 2.16.840.1.955647.3.579.2. 1954 Unknown [id number] 2.16.840.1.861422.3.579.2.173 1954 Unknown [id number] 2.16.840.1.955458.3.579.2. 1954 Unknown [id number] 2.16.840.1.885702.3.579.2. 1954 Unknown [id number] 2.16.840.1.488737.3.579.2. 1954 Unknown [id number] 2.16.840.1.473527.3.579.2.173 1954 Unknown [id number] 2.16.840.1.346634.3.579.2. 1954 Unknown [id number] 2.16.840.1.320249.3.579.2. 1954 Unknown [id number] 2.16.840.1.421558.3.579.2. 1954 Unknown [id number] 2.16.840.1.307585.3.579.2. 1954 Unknown [id number] 2.16.840.1.377282.3.579.2.173 1954 Unknown [id number] 2.16.840.1.347236.3.579.2.173 1954 Unknown [id number] 2.16.840.1.079058.3.579.2.173 1954 Unknown [id number] 2.16.840.1.283343.3.579.2.173 1954 Unknown [id number] 2.16.840.1.407951.3.579.2.173 1954 Unknown [id number] 2.16.840.1.270566.3.579.2.173 1954 Unknown [id number] 2.16.840.1.445359.3.579.2. 1954 Unknown [id number] 2.16.840.1.131432.3.579.2.173 1954 Unknown [id number] 2.16.840.1.554858.3.579.2.173 1954 Unknown [id number] 2.16.840.1.711138.3.579.2.173 1954 Unknown [id number] 2.16.840.1.895419.3.579.2.173 1954 Unknown [id number] 2.16.840.1.415785.3.579.2.173 1954 Unknown [id number] 2.16.840.1.578243.3.579.2.173 1954 Unknown [id number] 2.16.840.1.830270.3.579.2.594 1954 Unknown [id number] 2.16.840.1.878268.3.579.2.594 1954 Unknown [id number] 2.16.840.1.578677.3.579.2.594 1954 Unknown [id number] 2.16.840.1.244090.3.579.2.594 1954 Unknown [id number] 2.16.840.1.911389.3.579.2.594 1954 Unknown [id number] 2.16.840.1.474622.3.579.2.594 1954 Unknown [id number] 2.16.840.1.235800.3.579.2.594 1954 Unknown [id number] 2.16.840.1.151794.3.579.2.594 1954 Unknown [id number] 2.16.840.1.421710.3.579.2.594 Social History Date Type Detail Facility Start: 03-11-2019 End: 07-04-2022 Tobacco smoking status NHIS Never smoker [facility] Phone: Start: 03-11-2019 End: 04-22-2024 Alcohol intake Yes [place] Start: 11-08-2018 Alcohol Comment BEER [place], [place] Start: 1955 Sex Assigned At Not on file [place] Start: 09-28-2019 End: 06-20-2024 Alcohol intake Current drinker of alcohol (finding) [place] Exposure to SARS-CoV -2 (event) Unable to assess [place] Start: 09-30-2019 End: 07-04-2022 Tobacco use and exposure Never used [place] Start: 06-10-2022 End: 02-28-2023 Exposure to SARS-CoV-2 (event) Not sure [place] Start: 09-08-2020 Alcohol Comment BEER DAILY [place] Exposure to SARS-CoV -2 (event) Yes [place] Start: 10-13-2020 Alcohol Comment 10-12 daily [place] Start: 07-04-2022 End: 08-04-2024 Alcohol intake Ex-drinker (finding) [facility] Phone: Start: 07-04-2022 End: 04-22-2024 Alcohol intake [facility] [place] Phone: Start: 07-04-2022 History SDOH Alcohol Comment 4-5 drinks a night [facility] [employer] Phone: Start: 11-25-2022 Alcohol Comment 4-5 light beers a ni ght [employer] Work Phone: Start: 09-15-2021 History SDOH IPV Fear 2 O [facility] Start: 05-19-2021 Alcohol Comment daily [facility] Start: 12-23-2022 Alcohol Comment 5 daily [facility] Start: 05-09-2017 Gender identity Identifies as male gender (finding) [facility] Physical Abuse Denies [facility] Medical Equipment Procedure Code Equipment Code Equipment Origin al Text Equipment Identifier Dates Mesh Progrip Lapscp [id number] [facility] Start : 12-27-2018 Baseplate Dinh [id number] +3mm Lat Offset Augmented Aequalis - [id number] Start: 10-13-2020 Tray Hum Thk+0mm 3.5mm Offset Shldr Hi Reversed Aequalis - [id number] [facility] Start: 10-13-2020 Sphere Dinh Dia3 9mm +3mm Lat Offset Reversed Aequalis - [id number] Start: 10-13-2020 Insert Shldr C [id number] Thk+9mm 7.5deg Reversed Aequalis - [id number] Start: 10-13-2020 Stem Hum Sz 5b L 82mm 132.5deg Std Ptc For Conv Shldr Sys - [id number] Start: 10-13-2020 Screw Bone L35mm Dia6.5mm [...] ANCHOR CLIK X MODEL [id number] Dermis Decell 2.5-3.3wy0o8qq - [id number] Start: 10-27-2017 FamilyID Alpha 16 Implantable Pulse Generator Kit [id number] FDA Start: 07-13-2021 Kit Bone Graft 5 cc 12cc Stimulan Rapid Cure Calcium Sulfate - [id number] Start: 12-30-2022 Putty [place] 5c c - [id number] Start: 02-28-2023 Ankle Arthrodesi s Nail 12 X 200mm [id number] Start: 02-28-2023 Pushlock Bio-Composite 4.5 - [id number] Start: 10-27-2017 Suture [place], Biocomposite Swivelock C [id number] Start: 10-27-2017 Swivelock Bio V 4.75x19.1 - [id number] Start: 10-27-2017 [place] Sut Fbrtk 1.3mm St - [id number] Start: 10-27-[address] 50cm 8 Contact Lead Kit [id number] Start: 07-13-[address] 50cm 8 Contact Lead Kit [id number] Start: 07-13-2021 Clik X [place] [id number] Start: 07-13-2021 [id number] Medtro leonidas Dbm Putty 5cc [id number] Start: 02-28-2023 Screw Bone 14.5m m 8mm Compression Cannulated Ankle Titanium - [id number] Start: 02-28-2023 Screw Bone 40mm 5mm Lock Titanium T2 Partial Thread Sterile - [id number] Start: 02-28-2023 Screw Bone 30mm 5mm Lock Titanium Full Thread Sterile T2 - [id number] Start: 02-28-2023 Screw Bone 40mm 5mm Lock Titanium Full Thread Sterile T2 - [id number] Start: 02-28-2023 Screw Bone 65mm 5mm Lock Titanium Full Thread Sterile T2 - [id number] Start: 02-28-2023 Locking Screw 5 X 32.5mm [id number] Start: 02-28-2023 Clinical Notes 06-23-2022 to 06-20-2024 Cristopher Moreira MD - 06/20/2024 1:15 PM EDTPatient Vimal Hansen - 04/04/2024 1:00 PM EDLawyer Jayro - 03/19/2024 2:45 PM EDTEIbis mccain PTA - 03/12/2024 1:45 PM EDT Note Date & Type Note Facility 06-20-2024 History of Present illness Narrative [facility] Date [...] orthosis for greater than 9 months. An dqa-fjc-uewsj design will not adequately meet their needs [...] questions were answered. documented in this encounter [facility] 06-20-2024 Instructions Cristopher Moreira MD - 06/20/2024 [...] & Ankle Clinic documented in this encounter [facility] 04-24-2024 Note Admission Informatio n Patient: Preston [...] chronic back pain who initially presented to [facility] emergency department via EMS after falling [...] of height. He was subsequently transferred to [facility]. Patient was admitted due to L4 compression [...] Follow Current Instructions [id number], [address], [place] [id number], [phone] Current: oxyCODONE-acetaminophen (Percocet 5/325 oral tablet) 1 [...] by Nirmala Saez MD 04/24/24 12:47 EDT [facility] 04-23-2024 Note CLINICAL HISTORY: L4 compression fracture. [...] right using the transpedicular approach and the PAYMILL express access system. Drilling was performed. This [...] Signed, Electronically Signed in Other Vendor System) [facility] 04-23-2024 Note Performing Provider: Duane Assistants: No surgical assists Procedure Performed: Kyphoplasty Brief Description of Procedure: L4 kyphoplasty Estimated Blood Lose: None to minimal Specimens Removed: None Complications: None Post-Procedure Diagnosis: Fracture Electronically signed by Carlo Zepeda MD 04/23/24 15:11 EDT [facility] 04-23-2024 Note Chief Complaint Transfer from [facility] secondary to compression fracture with need for kyphoplasty Assessment/Plan Brief Hospital Course Summary: This is a 68 Years old Male who initially presented to [facility] emergency department via EMS after falling down 2 stairs at home and feeling my back popped. Patient has chronic back pain which became intractable and intolerable after the fall. Patient reports that he was planning to have surgical intervention on his chronic back issues after a planned trip to [facility] in approximately 87 days. Imaging revealed a [...] CT lumbar spine without contrast completed at [facility]. See reports CBC, BMP and Mag daily [...] Full Resuscitation History of Present Illness Mr. Pretson Carrasquillo is a 68-year-old male who initially presented to [facility] emergency department via EMS after falling [...] denies tobacco, alcohol and illicit drug use. [facility] chart reviewed. Blood work ordered on arrival [...] kg WT: 89. (more content not included)... [facility] 04-04-2024 History of Present illness Narrative [facility] Outpatient Physical Therapy Daily Note Patient: Preston Carrasquillo : 1955 CSN #: [id number] Referring Physician: Abbey De Paz DPM Date: 04/04/2024 Diagnosis: Plantar fascial fibromatosis Treatment Diagnosis: L foot pain Onset Date: 02/28/23 PT Insurance Information: [place] Total # of Visits Approved: 15 Per Physician Order Total # of Visits to Date: 7 No Show: 1 Canceled Appointment: 03 Plan of Care/Recert Due Pre-Treatment Pain: 01/20 Subjective: Pt states his achillies feels better following session. Pt states he's sore everyday Exercises: Exercise 2: calf stretch with towel--gentle Exercise 3: marble slate picker Exercise 4: foot roller Manual: Joint Mobilization: [...] interventions and modalities to decrease pain -MET Shotgun Shell Loading Machine Operator Goals Time Frame for Penitentiary Goals : 6 weeks Penitentiary Goal 1: Patient will be independent and compliant with a HEP Shotgun Shell Loading Machine Operator Goal 2: Patient will report decreased foot pain to <5/10 at worst. Penitentiary Goal 3: Patient will deny pain with palpation of his foot. Penitentiary Goal 4: Patient will report 60% improvement in overall symptoms and function. Minutes Tracking: Time In: 1300 Time Out: 1342 Minutes: 42 Timed Code Treatment Minutes: 41 Minutes Vimal Chapin Date: 04/04/2024 documented in this encounter [facility] 03-19-2024 History of Present illness Narrative Physical Therapy [facility] Inpatient/Observation/Outpatient Rehabilitation Date: 03/19/2024 Patient Name: [...] does not require skilled services due to: Therapist/Welding Machine Operator [employer] will attempt to see this patient, at our earliest opportunity. Lawyer Loco Date: 03/19/2024 documented in this encounter [facility] 03-12-2024 History of Present illness Narrative Physical Therapy [facility] Inpatient/Observation/Outpatient Rehabilitation Date: 03/12/2024 Patient Name: [...] does not require skilled services due to: Therapist/Welding Machine Operator [employer] will attempt to see this patient, at our earliest opportunity. Yue Kapoor Date: 03/12/2024 documented in this encounter [facility] 03-05-2024 History of Present illness Narrative Physical Therapy [facility] Inpatient/Observation/Outpatient Rehabilitation Date: 03/05/2024 Patient Name: [...] does not require skilled services due to: Therapist/Welding Machine Operator [employer] will attempt to see this patient, at our earliest opportunity. Yue Kapoor Date: 03/05/2024 [facility] Inpatient/Observation/Outpatient Rehabilitation Date: 03/05/2024 Patient Name: [...] does not require skilled services due to: Therapist/Welding Machine Operator [employer] will attempt to see this patient, at our earliest opportunity. Ibis Quesada, ESTELITA Date: 03/05/2024 documented in this encounter [facility] 02-14-2024 Note Procedure: MRI of th e [...] Signed, Electronically Signed in Other Vendor System) [facility] 01-18-2024 Note IMPRESSION: Redemonstration hindfoot arthrodesis with progressive lucency around the hardware suggestive of hardware loosening. No acute osseous abnormality. [facility] 01-18-2024 Note IMPRESSION: Redemonstration hindfoot arthrodesis with progressive lucency around the hardware suggestive of hardware loosening. No acute osseous abnormality. [facility] 01-18-2024 History of Present illness Narrative [facility] Date [...] this document for accuracy. Cristopher Moreira MD [facility] Date [...] PGY- 3 Dept. of Orthopaedic Surgery Pager: [phone] documented in this encounter [facility] 01-18-2024 Instructions Cristopher Moreira MD - 01/18/2024 [...] followup 6-12 months documented in this encounter [facility] 01-18-2024 Miscellaneous Notes Addended by: CRISTOPHER MOREIRA on: 01/18/2024 12:58 PM Modules accepted: Level of Service documented in this encounter [facility] 01-18-2024 Note Addended by: CRISTOPHER MOREIRA on: 01/18/2024 12:58 PM Modules accepted: Level of Service [facility] 09-14-2023 History of Present illness Narrative Date [...] questions were answered. documented in this encounter [facility] 08-02-2023 Telephone encounter Note [facility] [employer] [facility] to . I left voice message with patient to state that the referral was faxed over. [facility] 08-02-2023 Miscellaneous Notes I faxed via [employer] the referral to PT to [facility] to . I left voice message with patient to state that the referral was faxed over. [facility] is needing a new order stating PT and not orthopedics and the needs to be corrected and faxed back to them. The patient is scheduled and they are needing this JENNA. Fx: [phone] documented in this encounter [facility] 08-02-2023 Telephone encounter Note [facility] is needing a new order stating PT and not orthopedics and the needs to be corrected and faxed back to them. The patient is scheduled and they are needing this JENNA. Fx: [phone] [facility] 07-01-2023 Hospital Discharge instructions Nadege Muñoz DO - 07/01/2023 12:00 PM EDT Continue taking your home pain medications. Ice 20 minutes at a time multiple times a day. Stretching exercise may also be helpful. Follow-up with your doctor next week. The following attachments cannot be sent through Care Everywhere.Back Pain (Colombian)documented in this encounter [facility] 06-15-2023 History of Present illness Narrative Date [...] questions were answered. documented in this encounter [facility] 05-04-2023 History of Present illness Narrative Date [...] questions were answered. documented in this encounter [facility] 05-04-2023 Instructions AIDAN Brown - 05/04/2023 2:00 PM EDT Anticipated postop rehab pending clinical/radiographic healing: * 8-12weeks: CAM boot, progressive weightbearing as tolerated, start physical therapy for reconditioning and gait training * >12 weeks: wean CAM boot as tolerated, progressive return to activity, bracing/orthotics as needed documented in this encounter [facility] 05-04-2023 Miscellaneous Notes Addended by: MAJO NELSON on: 05/04/2023 03:01 PM Modules accepted: Orders documented in this encounter [facility] 05-04-2023 Note Addended by: MAJO NELSON on: 05/04/2023 03:01 PM Modules accepted: Orders [facility] 05-04-2023 Note Addended by: MAJO NELSON on: 05/04/2023 03:01 PM Modules accepted: Orders [facility] 03-16-2023 History of Present illness Narrative Date [...] giving consent. documented in this encounter [facility] 03-16-2023 Instructions AIDAN Brown - 03/16/2023 [...] or concerns: Please call our office at [phone] or you can my chart any questions/ concerns. Fax- [phone] documented in this encounter [facility] 03-15-2023 Telephone encounter Note I sent a secure email to patient with letter to get a wheelchair. Your Message was sent securely. Date: 2023-03-15 09:14:31 Subject: letter for wheelchair Recipients: Attachments: [id number] MessageID: [id number] [facility] 03-15-2023 Miscellaneous Notes I sent a secure email to patient with letter to get a wheelchair. Your Message was sent securely. Date: 2023-03-15 09:14:31 Subject: letter for wheelchair Recipients: [email or web address] Attachments: [id number] MessageID: [id number] Patient needs a letter from the doctor confirming that the patient needs a wheelchair so that he can get one fully covered by the [facility] rather than paying a $75.00/month rental fee. Patient would like the letter emailed to him at [email or web address]. documented in this encounter [facility] 03-14-2023 Telephone encounter Note Patient needs a letter from the doctor confirming that the patient needs a wheelchair so that he can get one fully covered by the [facility] rather than paying a $75.00/month rental fee. Patient would like the letter emailed to him at [email or web address]. [facility] 03-01-2023 Note Formatting of this n [...] discharge/transition of care. 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 Left arthroscopic ankle arthrodesis 2. Left subtalar arthrodesis 3. Left proximal tibia bone graft harvest 4. Fluoroscopy Anesthesia: GETA, regional block Findings: severe ankle and subtalar arthritis, no clinical signs of infection Estimated Blood Loss: 50cc Implants: Hector T2 TTC nail (200mm x12mm) MTF demineralized [...] fusion sites were secured. We placed a Postabon T2 (200mm x12mm) tibiotalocalcaneal arthrodesis nail. 1cm [...] Chaparro Hickman MD Orthopaedic Surgery Preston Carrasquillo ([id number]) PRE OPERATIVE DIAGNOSIS Arthritis of left ankle [...] ankle/subtalar arthritis, no signs of ongoing infection Hector T2 TTC nail: 200mm x12mm; MTF Demineralized bone matrix 5cc SURGEON Surgeon(s) and Role: * Cristopher Moreira MD - Primary ANESTHESIOLOGIST Anesthesiologist: Anant Chavez DO Anesthesia Fellow: Baljit Nuñez MD SURGICAL STAFF Nursing Services Manager: Jaren Allen RN Manager Site: [place] COMPLICATIONS None ESTIMATED BLOOD LOSS [...] rails. VSS documented in this encounter [facility] 03-01-2023 Note Formatting of this n [...] seek emergency help/care. All questions were answered. [facility] 03-01-2023 History of Present illness Narrative Acute [...] community IADL History IADLs: independent Primary Language: Colombian Objective/Observation: Vitals/Vitals Responses to Treatment: Pt experienced [...] Activity tolerance, Pain, Balance Extremity Assessments: Hand Animal Doctor Strength Hand Animal Doctor Strength Interpretation: Left WNL, Right WNL RUE Assessment RUE Assessment: Within Functional Limits LUE Assessment LUE Assessment: Within Functional Limits Balance: Sitting Balance Static Sitting-Level of Assistance: Supervision Dynamic Sitting-Level of Assistance: Supervision Standing Balance Static Standing-Level of Assistance: Contact guard Dynamic Standing-Level of Assistance: Contact guard Standing-Balance Support: 2 wheeled walker Mobility Assessment: Supine to Sit Mobility [place] Level: Supine->Sit: contact guard assist Bed Features/Set-up: Supine->Sit: Head of bed elevated Skilled Rationale: Verbal cues, Initiation and execution of task Skilled Intervention/Details: Supine->Sit: assist with LLE to EOB Sit to Supine Mobility [place] Level: Sit->Supine: contact guard assist Bed Features/Set-up: Sit->Supine: Head of bed elevated Skilled Rationale: Verbal cues, Initiation and execution of task Skilled Intervention/Details: Sit->Supine: assist with LLE back into bed Transfer Assessment: Sit to Stand Transfer [place] Level: Sit->Stand: minimum assist (75% patient effort) Assistive Device: Sit->Stand: 2 wheeled walker Skilled Rationale: Verbal cues, Sequencing, Hand placement, Maintain precautions Skilled Intervention/Details: Sit->Stand: cues for hand placement and sequencing. cues to maintain NWB Stand to Sit Transfer [place] Level: Stand->Sit: contact guard assist Assistive Device: Stand->Sit: 2 wheeled walker Skilled Rationale: Verbal cues, Hand placement, Controlled descent for sitting Skilled Intervention/Details: Stand->Sit: cues for slow descent Functional Mobility: Functional Mobility [place] Level: Functional Mobility/Gait: contact guard assist Assistive Device: Functional Mobility/Gait: 2 wheeled walker Functional Mobility Distance: Distance needed to access BSC/chair Functional Mobility Deficits: Activity tolerance, Pain Functional Mobility Skilled Rationale: Cues for increased safety, Walker management/safety Skilled Intervention/Details - Functional Mobility/Gait: pt took side hop to HOB. pt declined further functional mobility due to pain CURRENT [facility] Daily Activity Inpatient Short Form Putting on/Taking Off Lower Body Clothin - A Little Assistance Bathin - A Little Assistance Toiletin - A Little Assistance Putting on/Taking Off Upper Body Clothin - No Assistance Groomin - No Assistance Eatin - No Assistance CURRENT [facility] Activity Raw Score: 21 CURRENT [facility] Activity Functional Limitation/Modifier: 32.79% Currently Impaired in [...] attempted to see pt this AM at [phone] and pt was very drowsy and unable [...] Entry: 16 Evaluating Therapist: DIMITRIS Quevedo, OTR/L #[id number] Additional Details: Co-evaluation/co-treatment performed?: Yes, simultaneous billable [...] walker Mobility Assessment: Supine to Sit Mobility [place] Level: Supine->Sit: contact guard assist Skilled Intervention/Details: Supine->Sit: LLE Sit to Supine Mobility [place] Level: Sit->Supine: contact guard assist Skilled Intervention/Details: Sit->Supine: LLE Transfer Assessment: Sit to Stand Transfer [place] Level: Sit->Stand: minimum assist (75% patient effort) Assistive Device: Sit->Stand: 2 wheeled walker Skilled Intervention/Details: Sit->Stand: cues for NWB and hand placement, appears to maintain appropriately Stand to Sit Transfer [place] Level: Stand->Sit: contact guard assist Skilled Intervention/Details: Stand->Sit: cues to reach back for bed, appears to maintain NWB appropriately. Gait: Gait Assessment [place] Level: Gait: contact guard assist Assistive Device: Gait: 2 wheeled walker Ambulation Distance (Feet): 1 Skilled Intervention/Details - Gait: sidestepping with good NWB compliance. Pt declined to ambulate further citing pain and requested to go back to bed. Stairs: Stairs Assessment [place] Level: Stair Negotiation: not tested Skilled Intervention/Details - Stairs: pt reports his son can bump him up his home steps in w/c if needed. AMPAC Score: CURRENT [facility] Basic Mobility Inpatient Short Form Turning [...] with a railin - Total Assistance CURRENT [facility] Mobility Raw Score: 16 CURRENT [facility] Mobility Functional Limitation/Modifier: 54.16% Currently Impaired in [...] laws of the State Medical/[employer]ursing [place] of [place], the following conditions have been met for [...] addiction. His account was reviewed on the [place] [employer] Reporting System: Cole Martin. The controlled substance medication history was found [...] Orthopaedic Surgery documented in this encounter [facility] 03-01-2023 Hospital course Narrative Discharge Summary [...] 1:00 PM Majo [facility] Arrive at: Arrive to 1st Floor Registration Desk [phone] 04/13/2023 1:00 PM Majo Nelson [facility] Arrive at: Arrive to 1st Floor Registration Desk [phone] Associated attestation - Cristopher Moreira MD - [...] Cristopher Moreira MD documented in this encounter [facility] 03-01-2023 Note Formatting of this n ote is different from the original. Discharge to home with support from spouse and adult children. with provide transport home from hospital. 03/01/23 1129 Final Discharge Planning Discharge Disposition Home CM/SW AVS Portion Completed Yes Additional Community Agency Name(s) no Plan Plan Discharge home with outpatient follow up Patient/Family In Agreement With Plan yes [facility] 03-01-2023 Note Formatting of this n [...] necessary in recommended discharge environment. Outcome: Ongoing [facility] 03-01-2023 Note Formatting of this n [...] to monitor pt and inform ortho. T [facility] 02-28-2023 Note Formatting of this n ote [...] free environment maintained Safety/Security Measures: alarm set [facility] 02-28-2023 Note Formatting of this n ote might be different from the original. On admission to [facility], from [place] a dual RN initial assessment of skin condition was performed by Carissa Conner RN and WILLY Bonilla. Skin Assessment: Skin not within defined limits. POD #0 Left ankle incision Frandy Score: 17 LDA Added:Yes Carissa Conner RN [facility] 02-28-2023 Note Formatting of this n ote [...] outcomes by discharge/transition of care. Outcome: Ongoing [facility] 02-28-2023 Note Formatting of this n ote is different from the original. 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 Left arthroscopic ankle arthrodesis 2. Left subtalar arthrodesis 3. Left proximal tibia bone graft harvest 4. Fluoroscopy Anesthesia: GETA, regional block Findings: severe ankle and subtalar arthritis, no clinical signs of infection Estimated Blood Loss: 50cc Implants: Hector T2 TTC nail (200mm x12mm) MTF demineralized [...] fusion sites were secured. We placed a Postabon T2 (200mm x12mm) tibiotalocalcaneal arthrodesis nail. 1cm [...] return to activity, bracing/orthotics as needed [facility] 02-28-2023 Hospital Discharge instructions Cristopher Moreira [...] is the unique URL for your hospital/system. [email or web address] Please utilize the unique URL provided [...] a bowel movement. documented in this encounter [facility] 02-28-2023 Note Formatting of this n ote [...] wound check Chaparro Hickman MD Orthopaedic Surgery [facility] 02-28-2023 Note Formatting of this n ote is different from the original. Preston Carrasquillo ([id number]) PRE OPERATIVE DIAGNOSIS Arthritis of left ankle [...] Anesthesia Fellow: Baljit Nuñez MD SURGICAL STAFF Nursing Services Manager: Jaren Allen RN Manager Site: [place] COMPLICATIONS None ESTIMATED BLOOD LOSS 50 ml SPECIMENS Microbiology specimen sent ID Type Source Tests Collected by Time Destination A : Left Ankle Tissue TISSUE FUNGUS CULTURE, ACID FAST CULTURE, TISSUE, ANAEROBE CULTURE, BACTERIAL CULTURE AND DIRECT SMEAR, LESION, TISSUE, DEVICE Cristopher Moreira MD 02/28/2023 1210 Cristopher Moreira MD February 28, 2023 1:01 PM [facility] 02-28-2023 Note Formatting of this n ote might be different from the original. Anesthesia at bedside to perform a peripheral nerve block to the LLE. Bedside timeout performed. rrl Pt became very restless during procedure. Seizures pads placed on rails. VSS [facility] 02-28-2023 Attending History and physical note I have examined the patient and reviewed the previous H&P completed on date 02/22/23 and there are no changes. Cristopher Moreira MD, 02/28/2023, 9:46 AM. Source Note - Carissa Noel, TEENAGE PROGRAM DIRECTOR-EXTRUSION DIE REPAIRER - 02/22/2023 9:45 AM EDT Pre-Operative Assessment [...] Carrasquillo. AIDAN Echevarria Division of Hospital Medicine [facility] 02-28-2023 History and physical note I have examined the patient and reviewed the previous H&P completed on date 02/22/23 and there are no changes. Cristopher Moreira MD, 02/28/2023, 9:46 AM. Source Note - AIDNA Echevarria - 02/22/2023 9:45 AM EDT Pre-Operative [...] of Hospital Medicine documented in this encounter [facility] 02-22-2023 History and physical note Pre-Operative Assessment [...] Carrasquillo. AIDAN Echevarria Division of Hospital Medicine [facility] 02-22-2023 History and physical note Pre-Operative Assessment [...] all laboratory data in the E[facility] and [facility]/EKG and procedures: I have personally reviewed [...] Hospital Medicine documented in this encounter [facility] 02-22-2023 Instructions AIDAN Echevarria - 02/22/2023 9:45 AM EDT Patient [...] 3. DO NOT wear lotion, makeup, nail grenadian, contact lens, or perfume/cologne. 4. DO NOT [...] 1000 mg every 8 hours. Please contact [facility] Preadmission Testing Center if you have changes to your medications before surgery. We work in conjunction with your surgeon but cannot answer any specific questions about your surgery. If you have any questions specific to our visit today for your preoperative testing, please contact the [facility] Preadmission Testing [facility] at [phone]. Please direct any questions regarding your surgery to your surgeon s office documented in this encounter [facility] 02-13-2023 History of Present illness Narrative [facility] Date [...] arthrodesis with deformity correction - schedule at [facility] 02/28/23 with overnight stay - consent completed [...] questions were answered. documented in this encounter [facility] 02-13-2023 Instructions Cristopher Moreira MD - 02/13/2023 [...] scope assisted TTC arthrodesis - schedule at [facility] 02/28/23 with overnight stay - consent completed [...] bracing/orthotics as needed documented in this encounter [facility] 01-12-2023 History of Present illness Narrative [facility] Date [...] questions were answered. documented in this encounter [facility] 01-12-2023 Instructions Cristopher Moreira MD - 01/12/2023 [...] or concerns: Please call our office at [phone] or you can mychart any questions/concerns. Fax- [phone] documented in this encounter [facility] 01-12-2023 Miscellaneous Notes Addended by: MAJO NELSON on: 01/12/2023 02:15 PM Modules accepted: Orders documented in this encounter [facility] 01-12-2023 Note Addended by: MAJO NELSON on: 01/12/2023 02:15 PM Modules accepted: Orders [facility] 01-12-2023 Note Addended by: MAJO NELSON on: 01/12/2023 02:15 PM Modules accepted: Orders [facility] 01-12-2023 Hospital Discharge instructions Landen Valdes MD - 01/12/2023 1:27 AM EST Continue current medications as prescribed. Sure to avoid sleeping in over dry room. Use plain nasal saline spray several times a day for nasal dryness and comfort. Please seek medical attention immediately for any acute concerns. The following attachments cannot be sent through Care Everywhere.SOB (Shortness of Breath) (Colombian)documented in this encounter [facility] Phone: 01-06-2023 Telephone encounter Note Pt is rescheduled from 02/09/23 to 02/06/[address] Moreira. [facility] 01-06-2023 Miscellaneous Notes Pt is rescheduled from [...] please call back documented in this encounter [facility] 01-06-2023 Telephone encounter Note Spoke to patient [...] next week as needed (refills, questions, etc) [facility] Work Phone: 01-05-2023 Telephone encounter Note Pt is having drainage and still there is pain and when should the pain exceed. Pt wants to know the final surgery date. Please give call back [facility] 01-03-2023 Telephone encounter Note Called and spoke with Lb He is not happy about being on IV ATB 24 hours a day. Discussed this was what the ID dept recommended and that Dr. Moreira would defer to what ID feels best for treatment. He states he will call ID and discuss if there are any options. [facility] Work Phone: 01-03-2023 Telephone encounter Note Pt would like a call back about medication and pt has some concerns and questions about Cefazolin, pt states he was pressured into buying medication and was told to take so many in a timely manner please call back [facility] 01-02-2023 Miscellaneous Notes Went into pt room to assist them. Pt and had questions about their infusion and antibiotic and said they would like to speak with the RAILROAD CARMAN that was in here before . This [...] Discharge Faxed MILLI, AVS, and Facesheet to [facility] and [facility]. Called [facility] and spoke with Darlene. All questions were answered. [facility], call back number provided. Discharge paper work [...] LE Outcome: Ongoing picc placement verified using [employer] technology. picc placement picture not able to [...] age Patient Teaching: Yes Family Teaching: No [employer] [place] Protocol/Time Out Completed under Procedure Documentation Step 3: Time Out Includes Patient and Procedure (side/site marked when applicable),: yes Patient Positioning Correct?: Yes The need for antibiotics or fluids to be administered: n/a Relevant images displayed (if applicable): yes Care of specimens (if applicable): N/A [employer] [place] Protocol Verification Name of Practitioner attesting all steps of the [employer] [place] Protocol have been completed: coni/dinh PROCEDURE DETAILS: [...] catheter;does not require heparinized flush;lot number (specify) Net Software Developer/Lot Number: [id number] Size/Length: 4 Fr Inserted Catheter Length (cm): [...] consent. yes 2. Perform timeout. Yes 3. Welding Machine Operator Ultrasonic: If enter sterile field, uses sterile gown and gloves, cap, mask/eye protection. N/A 4. Prep site with ChloraPrep for 30 sec minimum (if femoral 120 sec minimum). Yes 5. Sterile technique to drape patient from head to toe. Yes During the procedure, did the clinician 1. Maintain a sterile field. Yes 2. Obtain a qualified second watch sergeant IF 3 unsuccessful sticks. (except if emergent); [...] Carrasquillo ( ) Surgeon: Cristopher Moreira MD Welding Machine Operator Ultrasonic: Damaso Dill MD; CLAUDIA Malik Preoperative Diagnosis: [...] for a wound check. Please page the cement mason maintenance orthopaedic surgery resident with any questions. Damaso Dill MD Orthopaedic Surgery Pager: [phone] Preston Carrasquillo ([id number]) PRE OPERATIVE DIAGNOSIS Septic arthritis of left [...] - Primary ANESTHESIOLOGIST Anesthesiologist: Kimberly Murphy MD SHIPPING PROCESSOR: Aubree Plasencia APRN-SHIPPING PROCESSOR SURGICAL STAFF Nursing Services Manager: Vanessa Wilkes RN Physician Welding Machine Operator Ultrasonic: Todd Martinez PA-C Relief Nursing Services Manager: Koko Knox RN Scrub Person: Lorna Cuadra [...] with home health. documented in this encounter [facility] 01-02-2023 Note Formatting of this n ote might be different from the original. Went into pt room to assist them. Pt and had questions about their infusion and antibiotic and said they would like to speak with the RAILROAD CARMAN that was in here before . This RN messaged Infectious Disease team. Team was willing to come answer pts questions when available. Pt and family not willing to wait to speak with team. RN educated, and encouraged pt to wait and speak with Infectious Disease team. Pt still wanting to leave. ID team informed. [facility] 01-02-2023 Note Formatting of this n [...] discharge/transition of care. Outcome: Adequate for Discharge [facility] 01-02-2023 Note Formatting of this n ote might be different from the original. Faxed MILLI, AVS, and Facesheet to [facility]. Called [facility] and spoke with Darlene. All questions were answered. Message left for Aprina at [facility], call back number provided. Discharge paper [...] PIV removed. Pt to discharge to home. [facility] 01-02-2023 History of Present illness Narrative INFECTIOUS DISEASE FOLLOW-UP NOTE Admit Date: 12/30/2022 Date of Evaluation: 31:39 PM [facility] LOS: 3 days S: Afebrile and [...] sign off. ATTENDING: Dr. Anand Mendoza MS, TEENAGE PROGRAM DIRECTOR, LEAD OXIDE MILL TENDER-C Nurse Practitioner Pager [phone] Infectious Diseases For urgent calls after hours [...] reviewed and discussed with Barbie Mendoza MS, TEENAGE PROGRAM DIRECTOR, LEAD OXIDE MILL TENDER-C as documented. We can clinically doing fine [...] Physical Therapy Joint Treatment Prior to Admission [facility] score(s): PRIOR LEVEL AM-PAC Mobility Raw Score: [...] Left; Surgeon: Majo Phan MD; Location: [facility] PERIOP HERNIA REPAIR Vitals/ Responses to Treatment: No vitals taken, no adverse response noted during PT session Cognition Overall Cognitive Status: Within Functional Limits Following Commands: Follows all commands and directions without difficulty Deficits: Fully aware of deficits Cognition Comments: very aware of TDWB status. [facility] Score: CURRENT [facility] Basic Mobility Inpatient Short Form Turning over in bed: 4 - No Assistance Sitting/standing from chair: 3 - A Little Assistance Moving from lying on back to sittin - A Little Assistance Moving to and from bed to chair: 3 - A Little Assistance Walk in hospital room: 3 - A Little Assistance Climbing 3-5 steps with a railin - Total Assistance CURRENT [facility] Mobility Raw Score: 17 CURRENT [facility] Mobility Functional Limitation/Modifier: 50.57% Currently Impaired in [...] available through their insurance options. [facility] chosen by pt. Agency reserved. Please call report and fax signed HHC order, MILLI FERREIRA at [place]. The [facility] is not open today due to the holiday, therefore [facility] is unable to obtain authorization for HHC/infusion services. [facility] informed pt and pt is insisting that he be discharged today. He states he will use his Medicare benefits instead of his VA benefits. [facility] informed [facility] reps/nurses. Cost for infusion [...] be delivered here to the hospital. Therefore, [facility] will deliver the drug to the pt's address and the [facility] rep/nurse will provide education to pt so that pt can hook himself up at home later today. [facility] will see pt tomorrow. Queenie HUGO informed. 01/02/23 1244 Final Discharge Planning Discharge Disposition Home with Infusion Services at Discharge Outpatient infusion/line care;Halfway CM/SW AVS Portion Completed Yes Community Agency Name(s) For Handoff [facility] - [place], [place] Phone For Handoff Fax For Handoff Additional Community Agency Name(s) yes [facility] Community Agency Name For Handoff [facility] Phone For Handoff Fax For Handoff Plan [...] for IV antibiotics Discharge Plan: Home w/ [facility] (+ infusion services) Addendum 1255: Patient requesting to discharge at 1300. [facility] infusion liason at bedside to discuss IV antibiotic with patient. The patient is unwilling to remain in the hospital for delivery of his antibiotic which would allow [facility] liaisons to store group manager continuous antibiotic prior to discharge. He is agreeable however to learn how to store group manager continuous antibiotic infusion. [facility] liaisons will provide education and arrange for antibiotics to be delivered to patients home this evening. Home health care has been arranged and will start services on 01/03/2023. In compliance with the laws of the State Medical/Nursing Board of [place], the following conditions have been met for [...] addiction. His account was reviewed on the [place] Automated Rx Reporting System: [place]. The controlled substance medication history was found [...] CBC w/diff every Monday and fax to [phone], attention Dr. Zenaida Street or BETHEL Mendoza Imaging: No Follow-up: Yes - patient should follow-up either via telemedicine/video visit ID Clinic (Please ensure patient is enrolled in [employer] prior to discharge in order for Virtual Visits to be performed) Prior to discharge, please call [phone] (hospital follow-up line only) to schedule an appointment with the provider listed above. If the patient is being discharged to a [facility] ([facility]), we will defer ID Care to the Infectious Disease Providers at the [facility] facility. Please instruct the facility that if the patient requires ID Follow-up after discharge, then they should call our office to arrange for an appointment. Central Access: Can Central Access be removed at the end of therapy: Yes Additional notes Will arrange telephone visit for 02/09/2023. Barbie Mendoza, GRUPO-EXTRUSION DIE REPAIRER Discharge Planning Patient Assessment Admission Assessment Patient [...] Care Team?: Yes Patient Care Team: Other [facility] - [facility] as PCP - General (Other) Environment/Caregivers Is the patient from a facility or mcc?: No Patient lives with: Spouse or Partner [...] that manages Anticoagulation?: [id number] [place] [address] - [address] [phone] Communication Equipment Mechanic Does the patient or disability representative express financial concerns? : No Coping/Stress Concerns about patient s coping and stress?: No Initial Discharge Planning Anticipated discharge disposition: Home with Infusion Transportation Available for Discharge: Family or Friend Anticipated DME: none Anticipated Services at Discharge: Outpatient infusion/line care, Halfway Patient Assessment Completed: Initial Risk of Readmission: [...] home infusion referrals sent. CCM left for [facility] requesting auth for services. Awaiting call back. [...] check. Please contact the Orthopaedic Surgery resident cement mason maintenance with any questions. Damaso Dill MD Orthopaedic Surgery Images from the original note were not included. Acute Physical Therapy Joint Evaluation Prior to Admission [facility] score(s): PRIOR LEVEL AM-PAC Mobility Raw Score: [...] 2 wheeled walker Mobility Assessment: Rolling/Turning Mobility [place] Level: Rolling/Turning: modified independence Scooting Bridging Mobility [place] Level: Scooting/Bridging: modified independence Supine to Sit Mobility [place] Level: Supine->Sit: contact guard assist Bed Features/Set-up: Supine->Sit: Head of bed elevated, Use of bed rail Skilled Rationale: Verbal cues, Technique of activity, Initiation and execution of task Transfer Assessment: Sit to Stand Transfer [place] Level: Sit->Stand: contact guard assist Assistive Device: Sit->Stand: 2 wheeled walker Skilled Rationale: Verbal cues, Technique of activity, Initiation and execution of task, Maintain precautions Stand to Sit Transfer [place] Level: Stand->Sit: contact guard assist Assistive Device: Stand->Sit: 2 wheeled walker Skilled Rationale: Verbal cues, Technique of activity, Initiation and execution of task, Maintain precautions Bed-Chair Transfer [place] Level: Bed<->Chair: contact guard assist Assistive Device: Bed<->Chair: 2 wheeled walker Skilled Rationale: Verbal cues, Maintain precautions Gait: Gait Assessment [place] Level: Gait: contact guard assist Assistive Device: [...] of the assistive device. Stairs: Stairs Assessment [place] Level: Stair Negotiation: not tested Per the pt, his kids will carry him up the stairs in his WC - they have experience with this. [facility] Score: CURRENT [facility] Basic Mobility Inpatient Short Form Turning [...] with a railin - Total Assistance CURRENT [facility] Mobility Raw Score: 16 CURRENT [facility] Mobility Functional Limitation/Modifier: 54.16% Currently Impaired in [...] check. Please contact the Orthopaedic Surgery resident cement mason maintenance with any questions. Damaso Dill MD Orthopaedic [...] check. Please contact the Orthopaedic Surgery resident cement mason maintenance with any questions. Damaso Dill MD Orthopaedic Surgery documented in this encounter [facility] 01-02-2023 Hospital course Narrative Discharge Summary [...] CBC w/diff every Monday and fax to [phone], attention Dr. Zenaida Street or [employer] Barbie Mendoza Vascular Access Catheter Care (specify) [...] CBC w/diff every Monday and fax to [phone], attention Dr. Zenaida Street or [employer] Barbie Mendoza Cyclobenzaprine 5 MG TABS Take [...] 1:00 PM Majo [facility] [place] Arrive at: Arrive to 1st Floor Registration Desk [phone] 02/08/2023 8:00 AM Barbie Mendoza Infectious Diseases Care [facility] Outpatient Care Arrive at: THIS IS A VIDEO VISIT, DO NOT GO TO THE CLINIC. [phone] 02/09/2023 1:30 PM [facility]o [facility] [place] Arrive at: Arrive to 1st Floor Registration Desk [phone] documented in this encounter [facility] 01-02-2023 Note Formatting of this n [...] boot on the L LE Outcome: Ongoing [facility] 01-02-2023 Note Formatting of this n ote might be different from the original. picc placement verified using bard technology. picc placement picture not able to be saved due to bad drive. picc placement verified visually by 2 picc nurses, dinh gleason and coni munoz. [facility] 01-02-2023 Note Formatting of this n [...] age Patient Teaching: Yes Family Teaching: No [place] Protocol/Time Out Completed under Procedure Documentation Step 3: Time Out Includes Patient and Procedure (side/site marked when applicable),: yes Patient Positioning Correct?: Yes The need for antibiotics or fluids to be administered: n/a Relevant images displayed (if applicable): yes Care of specimens (if applicable): N/A [place] Protocol Verification Name of Practitioner attesting all steps of the [place] Protocol have been completed: coni/dinh PROCEDURE DETAILS: [...] catheter;does not require heparinized flush;lot number (specify) Net Software Developer/Lot Number: [id number] Size/Length: 4 Fr Inserted Catheter Length (cm): [...] consent. yes 2. Perform timeout. Yes 3. Welding Machine Operator Ultrasonic: If enter sterile field, uses sterile gown and gloves, cap, mask/eye protection. N/A 4. Prep site with ChloraPrep for 30 sec minimum (if femoral 120 sec minimum). Yes 5. Sterile technique to drape patient from head to toe. Yes During the procedure, did the clinician 1. Maintain a sterile field. Yes 2. Obtain a qualified second watch sergeant IF 3 unsuccessful sticks. (except if emergent); [...] the Central Venous Catheter Insertion Checklist. [facility] 01-02-2023 Hospital Discharge instructions Queenie Muniz, TEENAGE PROGRAM DIRECTOR-EXTRUSION DIE REPAIRER - 01/02/2023 11:41 AM EST POST-OP INSTRUCTIONS AFTER YOUR FOOT/ANKLE SURGERY Continue Asa 81 mg twice daily for DVT (blood clot) prophylaxis while immobilized and nonweightbearing. Based upon your interest in the ELIQUIS (apixaban) Virtual Affordability program and completion of the 'Virtual Affordability Request Form', attached below is the unique URL for your hospital/system. [email or web address] Please utilize the unique URL provided [...] CBC w/diff every Monday and fax to [phone], attention Dr. Zenaida Street or BETHEL Mendoza Imaging: No Follow-up: Yes - patient should follow-up either via telemedicine/video visit ID Clinic (Please ensure patient is enrolled in [facility] prior to discharge in order for Virtual Visits to be performed) Prior to discharge, please call [phone] (hospital follow-up line only) to schedule an [...] Your PICC or Central IV Line: Video (Colombian)Catheter - Peripherally Inserted Central (PICC) (William Dallas) (Colombian)documented in this encounter [facility] 01-02-2023 Consult note Formatting of th is note might be different from the original. Received IP Consult to Addiction Medicine Consult completed by Dr. Wilkes. Pt politely declined any addiction medicine needs at this time. Addiction medicine to continue to follow as needed. ISIAH Astudillo Psychiatric Counselor Addiction Medicine Consult Services PH: [phone] Available M-F [facility] 01-02-2023 Consult note Formatting of th is note might be different from the original. Received IP Consult to Addiction Medicine Consult completed by Dr. Wilkes. Pt politely declined any addiction medicine needs at this time. Addiction medicine to continue to follow as needed. ISIAH Astudillo Psychiatric Counselor Addiction Medicine Consult Services PH: [phone] Available M-F Associated Order(s): IP CONSULT TO [...] for left ankle infection admitted to [facility] with chief complaint of left ankle pain [...] 25.37 kg/m . Signed, Jailyn Wilkes DO Inside Account Representative Addiction Medicine Consult Service Pager [phone] Associated Order(s): IP CONSULT TO INFECTIOUS DISEASE [facility] INFECTIOUS DISEASE CONSULTATION REQUESTING [...] trauma. 10/13/22 CT L ankle: 1. Diffuse evsi-el-kqzfktlm degenerative changes as detailed above. 2. Large [...] vasculature. 5. Small suprapatellar joint effusion. 6. Plyp-hb-rhwiajdi edema in the subcutaneous fat at the [...] questions. Zenaida Street MD Infectious Diseases, Pager #[phone] documented in this encounter [facility] 01-02-2023 Note Formatting of this n ote might be different from the original. Second assessment completed per policy.There are no noted changes from previous assessment unless otherwise documented. Pain is managed with analgesics and acetaminophen. Patient is educated on pain management, fall precautions and infection prevention measures. He verbalizes understanding. Bed alarm is on and call light is within reach. [facility] 01-01-2023 Note Formatting of this n [...] discharge/transition of care. Outcome: Progressing Toward Goal [facility] 01-01-2023 Note Formatting of this n [...] outcomes by discharge/transition of care. Outcome: Ongoing [facility] 01-01-2023 Note Formatting of this n ote might be different from the original. Reassessment completed per policy, no noted changes from previous assessment unless otherwise documented. Pt. Is alert, oriented, and vitals are stable. Pt is oriented to call light and alarms. All questions were answered. Pt. Resting comfortably. [facility] 01-01-2023 Note Formatting of this n [...] boot on the L LE Outcome: Ongoing [facility] 01-01-2023 Note Formatting of this n ote might be different from the original. Second assessment completed per policy.There are no noted changes from previous assessment unless otherwise documented. Patient is educated on pain management, fall precautions and infection prevention measures. He verbalizes understanding. Bed alarm is on and call light is within reach. [facility] 01-01-2023 Note Formatting of this n [...] outcomes by discharge/transition of care. Outcome: Ongoing [facility] 12-31-2022 Consult note Associated Order (s): [...] please contact the Addiction Medicine Team via [employer] Chat or pager. 1. The patient politely [...] for left ankle infection admitted to [facility] with chief complaint of left ankle pain [...] 25.37 kg/m . Signed, Jailyn Wilkes DO Inside Account Representative Addiction Medicine Consult Service Pager [phone] [facility] Work Phone: 12-31-2022 Consult note Associated Order (s): IP CONSULT TO INFECTIOUS DISEASE [facility] INFECTIOUS DISEASE CONSULTATION REQUESTING PHYSICIAN: Cristopher [...] PERCUTANEOUS N/A 07/13/2021 Laterality: N/A; Surgeon: Tyrell Weniberg DO; Location: [facility] OR INSERTION REPLACEMENT NEUROSTIMULATOR [...] trauma. 10/13/22 CT L ankle: 1. Diffuse wver-ng-gffcxtzs degenerative changes as detailed above. 2. Large [...] vasculature. 5. Small suprapatellar joint effusion. 6. Oaxw-tu-zsatosja edema in the subcutaneous fat at the [...] questions. Zenaida Street MD Infectious Diseases, Pager #[phone] [facility] Work Phone: 12-30-2022 Note Formatting of [...] outcomes by discharge/transition of care. Outcome: Ongoing [facility] 12-30-2022 Note Formatting of this n [...] Goal: Anesthesia/Sedation Recovery Outcome: Progressing Toward Goal [facility] 12-30-2022 Note Formatting of this n ote might be different from the original. Pt arrived to room on transport cart. Pt was moved over to our bed via 3 person assist.Admission questions were done. Assessment completed per policy. Pt's vital signs stable, room air. Pt educated on the use of the calls lights, and all alarms. All questions were answered. [facility] 12-30-2022 Note Formatting of this n ote might be different from the original. On admission to [facility], from PACU a dual RN initial assessment of skin condition was performed by Jamie Arciniega RN and Kash Oropeza. Skin Assessment: Skin within defined limits:Yes LDA Added:No Jamie Arciniega RN [facility] 12-30-2022 Note Formatting of this n ote might be different from the original. Date of Procedure: 30Dec2022 Patient: Preston Carrasquillo ( ) Surgeon: Cristopher Moreira MD Welding Machine Operator Ultrasonic: Damaso Dill MD; CLAUDIA Malik Preoperative Diagnosis: [...] CAM boot immobilization, may weightbear as tolerated. [facility] 12-30-2022 Note Formatting of this n [...] for a wound check. Please page the cement mason maintenance orthopaedic surgery resident with any questions. Damaso Dill MD Orthopaedic Surgery Pager: #[phone] [facility] 12-30-2022 Note Formatting of this n ote is different from the original. Preston Carrasquillo ([id number]) PRE OPERATIVE DIAGNOSIS Septic arthritis of left [...] - Primary ANESTHESIOLOGIST Anesthesiologist: Kimberly Murphy MD SHIPPING PROCESSOR: Aubree Plasencia APRN-SHIPPING PROCESSOR SURGICAL STAFF Nursing Services Manager: Vanessa Wilkes RN Physician Welding Machine Operator Ultrasonic: Todd Martinez PA-C Relief Nursing Services Manager: Koko Knox RN Scrub Person: Lorna Cuadra [...] Moreira MD December 30, 2022 4:57 PM [facility] 12-30-2022 Nurse Surgical operation note [phone] Family updated. [facility] 12-30-2022 Nurse Note 1627 Family updated. ISBAR handoff procedure completed with Vanessa surgery RN. Patient stable, no distress, transferred to surgery with OR personnel. documented in this encounter [facility] 12-30-2022 Nurse Surgical operation note ISBAR handoff procedure completed with Vanessa surgery RN. Patient stable, no distress, transferred to surgery with OR personnel. [facility] 12-30-2022 Note Formatting of this n ote might be different from the original. I certify that this patient requires inpatient services at this time. I anticipate the expected length of stay will include at least two midnights. Current treatment plan includes surgical debridement, IV antibiotics, Infectious Disease consult. Plans for post hospitalization care will be discharge to home with home health. [facility] 12-30-2022 Attending History and physical note I have examined the patient and reviewed the previous H&P completed on date 12/22/22 and there are no changes. Cristopher Moreira MD, 12/30/2022, 12:07 PM. Source Note - Cristopher Moreira MD - 12/22/2022 1:15 PM EST [facility] Date [...] has never used smokeless tobacco.. Occupation: Retired, [employer] Physical Examination: GENERAL: alert and oriented x3; [...] this document for accuracy. Cristopher Moreira MD [facility] 12-30-2022 History and physical note I have examined the patient and reviewed the previous H&P completed on date 12/22/22 and there are no changes. Cristopher Moreira MD, 12/30/2022, 12:07 PM. Source Note - Cristopher Moreira MD - 12/22/2022 1:15 PM EST [facility] Date [...] has never used smokeless tobacco.. Occupation: Retired, [employer] Physical Examination: GENERAL: alert and oriented x3; [...] Cristopher Moreira MD documented in this encounter [facility] 12-08-2022 Hospital Discharge instructions Maira Figueroa RN - 12/08/2022 2:10 PM EST Verbally reviewed discharge instructions for care and follow up. Previous print out of these instructions were given with prior treatment.Patient verbalized understanding of these instructions. documented in this encounter [employer] Phone: 12-07-2022 Hospital Discharge instructions Maira Figueroa RN - 12/07/2022 1:17 PM EST Verbally reviewed discharge instructions for care and follow up. Previous print out of these instructions were given with prior treatment.Patient verbalized understanding of these instructions. documented in this encounter [facility] [employer] Phone: 12-06-2022 Hospital Discharge instructions Maira Figueroa RN - 12/06/2022 2:45 PM EST Verbally reviewed discharge instructions for care and follow up. Previous print out of these instructions were given with prior treatment.Patient verbalized understanding of these instructions. documented in this encounter [facility] [employer] Phone: 12-05-2022 Hospital Discharge instructions Germania Farley RN - 12/05/2022 1:29 PM EST Verbally reviewed discharge instructions for care and follow up. Previous print out of these instructions were given with prior treatment.Patient verbalized understanding of these instructions. documented in this encounter [facility] [employer] Phone: 12-02-2022 Hospital Discharge instructions Maira Figueroa RN - 12/02/2022 3:23 PM EST Verbally reviewed discharge instructions for care and follow up. Previous print out of these instructions were given with prior treatment.Patient verbalized understanding of these instructions. documented in this encounter [facility] [employer] Phone: 12-01-2022 Hospital Discharge instructions Maira Figueroa RN - 12/01/2022 2:16 PM EST Verbally reviewed discharge instructions for care and follow up. Previous print out of these instructions were given with prior treatment.Patient verbalized understanding of these instructions. documented in this encounter [facility] [employer] Phone: 11-30-2022 Hospital Discharge instructions Germania Farley RN - 11/30/2022 1:22 PM EST Verbally reviewed discharge instructions for care and follow up. Previous print out of these instructions were given with prior treatment.Patient verbalized understanding of these instructions. documented in this encounter [facility] [employer] Phone: 11-29-2022 Hospital Discharge instructions Francie Contreras RN - 11/29/2022 1:47 PM EST Verbally reviewed discharge instructions for care and follow up. Previous print out of these instructions were given with prior treatment.Patient verbalized understanding of these instructions. documented in this encounter [facility] [employer] Phone: 11-26-2022 History of Present illness Narrative Pt presents for scheduled OP ATB infusion. 22G IV placed in left AC. Pt denies pain at this time. Pre-infusion VS 1300 BP 102/61 HR 88 SpO2 96% RA Post-infusion VS 1340 BP 103/55 HR 91 SpO2 95% RA IV left in place for future infusions. Covered with coban. documented in this encounter [employer] [place] Phone: 11-25-2022 History of Present illness Narrative [...] Dr. Saini. documented in this encounter [employer] Phone: 11-25-2022 Hospital Discharge instructions Ayleen Acosta [...] the emergency department waiting room and RN supervisor public message service will do your infusion -go to treatment clinic- Medical Office Building, second floor-[address] documented in this encounter [facility] Phone: 07-04-2022 Note Splint material degr [...] new script for pain meds. Pt will slate picker walker at [facility] he does not want to wait for [...] better @[email or web address]@ [facility] IN-PATIENT SERVICE [facility] Progress Note 06/26/2022 7:09 AM Name: Preston Carrasquillo Acct: [id number] Room: 0238/0238-01 Day: 2 Admit Date: 06/24/2022 [...] results found for: POCPH, PHART, PH, POCPCO2, NDK3YIR, PCO2, POCPO2, PO2ART, PO2, POCHCO3, LCU1DIO, HCO3, NBEA, PBEA, BEART, BE, THGBART, THB, XXU0LJR, GKCD2HEL, V9XCWPYO, O2SAT, FIO2 Lab Results Component Value Date/Time [...] - Thiamine and folic acid daily. - [facility] protocol. 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 AM-PAC Score [facility] Inpatient Mobility Raw Score : 16 (06/25/221356) [...] home med list to make it correct @[facility]@ [facility] IN-PATIENT SERVICE [facility] Progress Note 06/25/2022 8:32 AM Name: Preston Carrasquillo Acct: [id number] Room: 0238/0238-01 Day: 1 Admit Date: 06/24/2022 [...] results found for: POCPH, PHART, PH, POCPCO2, DFN0IGX, PCO2, POCPO2, PO2ART, PO2, POCHCO3, XCN7DFZ, HCO3, NBEA, PBEA, BEART, BE, THGBART, THB, QGD1SGW, UNER8CSN, H0CHLXSP, O2SAT, FIO2 Lab Results Component Value Date/Time [...] - Thiamine and folic acid daily. - CILA protocol. - Will provide 2 beers with lunch and dinner. 3. Restless Leg Syndrome - Requip 1 mg TID 4. 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 - Baseline per chart review is around 128. - Fluid restriction 1500 ml - Will monitor. Mumtaz Norris DO 06/25/2022 8:32 AM Images from the original note were not included. Occupational Therapy [facility] Occupational Therapy Not Seen Note DATE: 06/24/2022 [...] L ankle documented in this encounter [facility] [email or web address] Phone: 06-24-2022 Hospital Discharge instructions Ximena Crow [...] clinic on 07/05 at 8:45 AM. Call [phone] with any questions/concerns. Kiel Mir, DO PGY-2 Resident Physician Orthopaedic Surgery [place], [place] 06/24/2022 at 12:52 PM Splint Care [...] splint gets wet, dry it with a chairman president and chief executive officer on the cool setting. Don t use [...] directive for healthcare treatment Durable power of construction rep for health care;Living will -- Spouse Maria Elena -- Admitting Physician: Pardeep Infante DO PCP: No primary care provider on file. Discharging Nurse: Discharging Hospital Unit/Room#: 0238/0238-01 Discharging Unit Phone Number: Emergency Contact: Extended Emergency Contact Information Primary Emergency Contact: Maria Elena Carrasquillo [address]: [address] [place] [address] of [employer] Relation: Spouse Skinning Machine Feeder needed? No Past Surgical History: Past Surgical History: Procedure Laterality Date ANKLE ARTHROTOMY Left 06/24/2022 LEFT LEG IRRIGATION AND DEBRIDEMENT, LEFT ANKLE ARTHROTOMY AND IRRIGATION. EXCISION OF POSTERIOR TIBIALIS TENDON. BICEPS TENDON REPAIR HERNIA REPAIR N/A 12/27/2018 HERNIA VENTRAL REPAIR LAPAROSCOPIC ROBOTIC-UMBILICAL WITH MESH/LIKELY UMBILECTOMY performed by Camille Gonzales DO at [facility] OR PAIN MANAGEMENT PROCEDURE Right 08/11/2020 LUMBAR FACET, L4-L5 L5-S1 performed by Aroldo Montejo MD at [facility] OR PAIN MANAGEMENT PROCEDURE Right 09/08/2020 LUMBAR RFA-L2, L3, L4, L5 performed by Aroldo Montejo MD at [facility] OR ROTATOR CUFF REPAIR right shoulder ROTATOR CUFF REPAIR left and right SHOULDER SURGERY Right 10/13/2020 SHOULDER TOTAL ARTHROPLASTY REVERSE performed by Yovanny Cunha MD at [facility] OR Immunization History: There is no immunization [...] (78.5 kg) Mental Status: {IP PT MENTAL STATUS:44552} IV Access: { MILLI IV ACCESS:645045119} Nursing Mobility/ADLs: Walking {CHP DME ADLs:504013720} Transfer {CHP DME ADLs:017063241} Bathing {CHP DME ADLs:568913251} Dressing {CHP DME ADLs:797055240} Toileting {CHP DME ADLs:235050341} Feeding {CHP DME ADLs:171714861} Software Client Architect {CHP DME ADLs:702761854} Med Delivery { MILLI MED Delivery:426662295} Wound Care Documentation and Therapy: Incision 06/24/22 [...] Bladder: {YES / NO:} Urinary Catheter: {Urinary Catheter:011562317} Colostomy/Ileostomy/Ileal Conduit: {YES / NO:} Date of Last BM: Intake/Output Summary (Last 24 hours) at 06/26/2022 1205 Last data filed at 06/25/2022 1444 Gross per 24 hour Intake 440 ml Output 600 ml Net -160 ml I/O last 3 completed shifts: In: 440 [P.O.:440] Out: 2575 [Urine:2575] Safety Concerns: { MILLI Safety Concerns:618637952} Impairments/Disabilities: { MILLI Impairments/Disabilities:86768280 3} Nutrition Therapy: Current Nutrition Therapy: { MILLI Diet List:145925726} Routes of Feeding: {[facility] Other Feedings:318612119} Liquids: {[facility] liquid thickness:98322} Daily Fluid Restriction: {[facility] DME Yes amt example:917115925} Last Modified Barium Swallow with Video (Video Swallowing Test): {Done Not Done Date:} Treatments at the Time of Hospital Discharge: Respiratory Treatments: Oxygen Therapy: {Therapy; copd oxygen:79781} Ventilator: { CC Vent List:021805417} Rehab Therapies: {THERAPEUTIC INTERVENTION:1238670933} Weight Bearing Status/Restrictions: {[facility] Weight Bearin} Other Medical Equipment (for information only, NOT a DME order): {EQUIPMENT:793283170} Other Treatments: Patient's personal belongings (please select all that are sent with patient): {[facility] DME Belongings:725573710} RN SIGNATURE: {Esignature:302308519} CASE MANAGEMENT/SOCIAL WORK SECTION Inpatient Status Date: Readmission Risk Assessment Score: Readmission Risk Risk of Unplanned Readmission: 12 Discharging to Facility/ Agency Name: Address: Phone: Fax: Dialysis Facility (if applicable) Name: Address: Dialysis Schedule: Phone: Fax: Motorcycle Deliverer/Auto Radiator Mechanic signature: {Esignature:398689955} PHYSICIAN SECTION Prognosis: {Prognosis:1895020652} Condition at Discharge: { Patient Condition:085950974} Rehab Potential (if transferring to Rehab): {Prognosis:2020127142} Recommended Labs or Other Treatments After Discharge: Physician Certification: I certify the above information and transfer of Preston Carrasquillo is necessary for the continuing treatment of the diagnosis listed and that he requires {Admit to Appropriate Level of Care:57260} for {GREATER/LESS:594810142} 30 days. Update Admission H&P: {CHP DME Changes in HandP:833356177} PHYSICIAN SIGNATURE: {Esignature:461367530} The following attachments cannot be sent through Care Everywhere.docusate (oral/rectal) (Colombian)acetaminophen (oral) (Colombian)doxycycline (oral/injection) (Colombian)pregabalin (Colombian)tramadol (Colombian)documented in this encounter [employer] [place] Phone: 06-23-2022 Note 1. Large peripherall y [...] calcaneal spur. No acute fracture or dislocation. [facility] RIS CONSOLID[facility] Evaluation note Diagnosis Chronic pain of left ankle- Primary documented in this encounter [facility] [place] Phone: evaluation note* Diagnosis Septic arthritis of left ankle, due to unspecified organism (HCC)- Primary documented in this encounter [facility] [place] Phone: evaluation note* Diagnosis Acute left ankle pain- Primary Septic arthritis of left ankle, due to unspecified organism (HCC) Post-op pain Other acute postoperative pain Primary hypertension Unspecified essential hypertension ETOH abuse Alcohol abuse, unspecified Restless leg syndrome Restless legs syndrome (RLS) Hyponatremia Hyposmolality and/or hyponatremia documented in this encounter [facility] [place] Phone: evaluation note* Diagnosis Post-op pain- Primary Other acute postoperative pain documented in this encounter [facility] [place] Phone: evaluation note* Diagnosis Septic arthritis of left ankle, due to unspecified organism (HCC) documented in this encounter [facility] [place] Phone: evaluation note* Diagnosis Septic arthritis of left ankle, due to unspecified organism (HCC) documented in this encounter [employer] [place] Phone: evaluation note* Diagnosis Septic arthritis of left ankle, due to unspecified organism (HCC) documented in this encounter [facility] [place] Phone: evaluation note* Diagnosis Septic arthritis of left ankle, due to unspecified organism (HCC) documented in this encounter [facility] [place] Phone: evaluation note* Diagnosis Septic arthritis of left ankle, due to unspecified organism (HCC)- Primary Posterior tibial tendinitis of left leg Tibialis tendinitis documented in this encounter [facility] [place] Phone: evaluation note* Diagnosis Septic arthritis of left ankle, due to unspecified organism (HCC)- Primary documented in this encounter [facility] [place] Phone: evaluation note* Diagnosis Septic arthritis of left ankle, due to unspecified organism (HCC)- Primary documented in this encounter [facility] [place] Phone: evaluation note* Diagnosis Septic arthritis of left ankle, due to unspecified organism (HCC)- Primary documented in this encounter [facility] [place] Phone: evaluation note* Diagnosis Septic arthritis of left ankle, due to unspecified organism (HCC)- Primary documented in this encounter [facility] [place] Phone: evaluation note* Diagnosis Septic arthritis of left ankle, due to unspecified organism (HCC)- Primary documented in this encounter [facility] [place] Phone: evaluation note* Diagnosis Septic arthritis of left ankle, due to unspecified organism (HCC)- Primary documented in this encounter [facility] [place] Phone: evaluation note* Diagnosis Septic arthritis of left ankle, due to unspecified organism (HCC)- Primary documented in this encounter [facility] [place] Phone: evaluation note* Diagnosis Septic arthritis of left ankle, due to unspecified organism (HCC)- Primary documented in this encounter [facility] [place] Phone: evaluation note* Diagnosis Septic arthritis of left ankle, due to unspecified organism (HCC)- Primary documented in this encounter [facility] [place] Phone: evaluation note* Diagnosis Left ankle pain, unspecified chronicity Septic arthritis of left ankle Pyogenic arthritis, ankle and foot Chronic osteomyelitis of left ankle [facility] Chronic osteomyelitis of left ankle- Primary Chronic osteomyelitis of left ankle Septic arthritis of left ankle Pyogenic arthritis, ankle and foot Bacteremia Acute postoperative pain Other acute postoperative pain [facility] Diagnosis Dyspnea, unspecified type- Primary documented in this encounter [facility] [place] Phone: evaluation note* Diagnosis Postop check- Primary Follow-up examination, following unspecified surgery 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 ankle Unspecified arthropathy, ankle and foot Arthritis of left subtalar joint [facility] Diagnosis Staphylococcal arthritis of left ankle- Primary Arthritis of left subtalar joint Arthritis of first metatarsophalangeal (MTP) joint of left foot 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 ankle Unspecified arthropathy, ankle and foot Arthritis of left subtalar joint [facility] Diagnosis 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 ankle Unspecified arthropathy, ankle and foot Arthritis of left subtalar joint [facility] Diagnosis Pre-op evaluation- Primary Preoperative examination, unspecified Essential hypertension Unspecified essential hypertension Alcohol use Other problems related to lifestyle RLS (restless legs syndrome) Restless legs syndrome (RLS) Lumbar radiculopathy Thoracic or lumbosacral neuritis or radiculitis, unspecified Hyponatremia Hyposmolality and/or hyponatremia Arthritis of left ankle Unspecified arthropathy, ankle and foot Arthritis of left subtalar joint [facility] Diagnosis Acute postoperative pain- Primary Other acute postoperative pain Pre-op evaluation Preoperative examination, unspecified Arthritis of left ankle Unspecified arthropathy, ankle and foot 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 ankle Unspecified arthropathy, ankle and foot [facility] Diagnosis Arthritis of left ankle- Primary Unspecified arthropathy, ankle and foot [facility]* Diagnosis Arthritis of left ankle- Primary Unspecified arthropathy, ankle and foot Arthritis of left ankle Unspecified arthropathy, ankle and foot [facility] Diagnosis Arthritis of left ankle Unspecified arthropathy, ankle and foot [facility]* Diagnosis Left ankle pain, unspecified chronicity- Primary Left ankle pain, unspecified chronicity [facility] Diagnosis Left ankle pain, unspecified chronicity [facility]* Diagnosis Acute on chronic midline low back pain without sciatica- Primary documented in this encounter [facility] note* Diagnosis Chronic pain in left foot- Primary Pain in limb S/P Left tibiotalocalcaneal arthrodesis Other postprocedural status Arthritis of first metatarsophalangeal (MTP) joint of left foot S/P Left tibiotalocalcaneal arthrodesis Other postprocedural status Chronic pain in left foot Pain in limb [facility] Diagnosis S/P Left tibiotalocalcaneal arthrodesis- Primary Other postprocedural status Chronic pain in left foot Pain in limb Arthritis of first metatarsophalangeal (MTP) joint of left foot S/P Left tibiotalocalcaneal arthrodesis Other postprocedural status Chronic pain in left foot Pain in limb [facility] Diagnosis S/P Left tibiotalocalcaneal arthrodesis Other postprocedural status Chronic pain in left foot Pain in limb [facility]* Diagnosis Arthropathy of ankle and foot Unspecified arthropathy, ankle and foot [facility]* Attachments The following attachments cannot be sent through Care Everywhere. * Joint Pain (Colombian) documented in this encounter[email or web address] Phone: Hospital Discharge instructions* Attachments The following attachments cannot be sent through Care Everywhere. * Pain Post-Surgery: Acute (Colombian) documented in this encounter[facility]ON [employer] Phone: Hospital Discharge instructions* Attachments The following attachments cannot be sent through Care Everywhere. * Pain and Pain Control ([facility]) (Colombian) [facility] (narrative)* (Routine) Specialty Diagnoses / Procedures Referred By Jamila brown Referred To Contact [facility] [address] [address] Referral ID Status Reason Start Date Expiration Date Visits Re quested Visits Authorized * (Routine) - New Request Specialty Diagnoses / Procedures Referred By Jamila brown Referred To Contact Procedures DVT/VTE RISK ASSESSMENT Cristopher Moreira MD [address] [place] [phone] Referral ID Status Reason Start Date Expiration Date V isits Requested Visits Authorized [id number] New Request 02/28/2023 03/24/2024 1 1 * Radiology (Routine) - New Request Specialty Diagnoses / Procedures Referred By Jamila brown Referred To Contact Procedures US IMAGING OR Cristopher Moreira MD [address] [place] [address] Referral ID Status Reason Start Date Expiration Date V isits Requested Visits Authorized [id number] New Request 02/28/2023 03/24/2024 1 1 [facility] for referral (narrative)* Consultation (Routine) - Patient to Arrange Specialty Diagnoses / Procedures Referred By Jamila brown Referred To Contact Orthopaedic Surgery Diagnoses S/P ankle arthrodesis Chronic pain in left foot Cristopher Moreira MD [address] [place] [address] Referral ID Status Reason Start Date Expiration Date V isits Requested Visits Authorized [id number] Patient to Arrange 06/20/2024 07/15/2025 1 1 [facility] for visit Narrative* Treatment Plan and Therapy Plan (Routine) - Open Specialty Diagnoses / Procedures Referred By Jamila brown Referred To Contact Diagnoses Septic arthritis of left ankle, due to unspecified organism (HCC) Akil Saini, DPM [address] [place] [address] [facility] [address] [place] [id number] Referral ID Status Reason Start Date Expiration Date Visits Re quested Visits Authorized [id number] Open 11/25/2022 11/25/2023 1 1 [employer] Phone: reason for visit Narrative* Auth/Cert Specialty Diagnoses / Procedures Referred By Jamila brown Referred To Contact Diagnoses Septic arthritis of left ankle Chronic osteomyelitis of left ankle Septic arthritis of left ankle [M00.9] Chronic osteomyelitis of left ankle [M86.672] Procedures TX ANKLE SCOPE,PART DEBRIDEMENT TX DRAIN LEG/ANKLE BONE FOR INFECT TX INSERTION DRUG DELIVERY IMPLANT TX ARTHROSCOPY SUBTALAR JOINT WITH DEBRIDEMENT ARTHROSCOPY ANKLE W/ DEBRIDEMENT I&D BONE CORTEX ANKLE LEG INSERTION IMPLANT NONBIODEGRADABLE DRUG DELIVERY ARTHROSCOPY SUBTALAR JOINT W/ DEBRIDEMENT Cristopher Moreira MD [address] [place] [address] [facility] [address] [place] [address] Referral ID Status Reason Start Date Expiration Date Visits Re quested Visits Authorized [id number] 1 1 [facility] Summary Purpose Family History No Family History Records FoundNo Family History Records FoundNo Family History Records FoundNo Family History Records FoundNo Family History Records FoundNo Family History Records Found Advance Directives No Advanced Directives Records FoundDocuments on File Type Date Recorded 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 Advance Directives and Living Will Power of Raisin Washer Documents on File Type Date Recorded 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 Advance Directives and Living Will Power of Raisin Washer Documents on File Type Date Recorded 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 -MET []Met []Partially met []Not met FDC goal 2: Pt will perform >12 sit to stands in 30 seconds without use of UE assist for improved LE functional strength. -MET (18 sit to stands) []Met []Partially met []Not met FDC goal 3: Pt will demonstrate ability to maintain DL lift for >15 seconds without LBP toindicate improved core strength. 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 []Met []Partially met []Not met Minutes Tracking: Time In: 1615 Time Out: 1700 Minutes: 45 Vimal Mina RN RELIEF CHARGE Date: 07/08/2019 documented in this encounter* Vimal Mina - 07/30/2019 10:[address] [facility] Inpatient/Observation/Outpatient Rehabilitation Date: 07/29/2019 Patient Name: [...] go. All questions answered and patient had typewriter assembly and parts inspector sign discharge paperwork since his surgical shoulder is the one he writes with and is in a sling. * Luh Varma RN - 10/13/2020 6:00 PM EST given paper prescriptions that were provided by Dr. Cunha. Patient okay to be discharged whenever he is ready. Body Man called up a meal for him and [...] 10/13/2020 5:15 PM EST [facility] [address] Cunha spoke with typewriter assembly and parts inspector and states that it is okay for [...] Suazo, PT - 08/27/2019 3:[address] [facility] Outpatient Physical Therapy Discharge Summary Patient: Preston Carrasquillo : 1955 CSN #: [id number] Referring physician: No admitting provider for patient encounter. 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 -MET FDC goal 2: Pt will perform >12 sit to stands in 30 seconds without use of UE assist for improved LE functional strength. -MET (18 sit to stands) FDC goal 3: Pt will demonstrate ability to maintain DL lift for >15 seconds without LBP toindicate improved core strength. 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 -MET equipment operator intermodal yard goal 5: Pt will improve L shld [...] be sent through Care Everywhere. * Cough (Colombian) documented in this encounter* Instructions* Azul Carreon PA-C - 09/30/2019 Call to arrange follow up with your doctor this week. * Attachments The following attachments cannot be sent through Care Everywhere. * Cough (Colombian) documented in this encounter* Instructions* Gabriel Cortes [...] M[place]ki Pain Scale provided to you at [facility]. Remember in order to accurately assess [...] call Dr. Cunha on his cell phone, [phone]. 10. Follow-up with your surgeon and physical [...] LUMBAR SPINE W WO Sol Hurt MD [address] [place] [address] Specialty Diagnoses / Procedures Referred By Jamila brown Referred To Contact Diagnoses Staphylococcal arthritis of left ankle Procedures XR ANKLE LEFT 3+ VIEWS Cristopher Moreira MD [address] [place] [phone] Referral ID Status Reason Start Date Expiration Date V isits Requested Visits Authorized [id number] New Request 12/22/2022 01/16/2024 1 1 Specialty Diagnoses / Procedures Referred By Contac t Referred To Contact Social Work Diagnoses Chronic osteomyelitis of left ankle Queenie Muniz TEENAGE PROGRAM DIRECTOR-EXTRUSION DIE REPAIRER [address] [place] [address] Referral ID Status Reason Start Date Expiration Date V isits Requested Visits Authorized [id number] New Request 01/02/2023 01/27/2024 1 1 Specialty Diagnoses / Procedures Referred By Contac t Referred To Contact Diagnoses Chronic osteomyelitis of left ankle Queenie Muniz TEENAGE PROGRAM DIRECTOR-EXTRUSION DIE REPAIRER [address] [place] [phone] Referral ID Status Reason Start Date Expiration Date V isits Requested Visits Authorized [id number] New Request 01/02/2023 01/27/2024 1 1 Specialty Diagnoses / Procedures Referred By Contac t Referred To Contact Queenie Muniz APRN-EXTRUSION DIE REPAIRER [address] [place] [address] Referral ID Status Reason Start Date Expiration Date Visits Re quested Visits Authorized Specialty Diagnoses / Procedures Referred By Contac t Referred To Contact [facility] [address] [place] [address] Specialty Diagnoses / Procedures Referred By Contac t Referred To Contact Diagnoses Arthritis of left subtalar joint Procedures XR ANKLE LEFT 3+ VIEWS Cristopher Moreira MD [address] [place] [address] Referral ID Status Reason Start Date Expiration Date V isits Requested Visits Authorized [id number] New Request 02/13/2023 03/09/2024 1 1 Specialty Diagnoses / Procedures Referred By Contac t Referred To Contact Diagnoses Arthritis of left subtalar joint Procedures XR FOOT LEFT 3 VIEWS Cristopher Moreira MD [address] [place] [address] Referral ID Status Reason Start Date Expiration Date V isits Requested Visits Authorized [id number] New Request 02/13/2023 03/09/2024 1 1 Specialty Diagnoses / Procedures Referred By Contac t Referred To Contact Diagnoses Pre-op evaluation Procedures ECG Carissa Noel, TEENAGE PROGRAM DIRECTOR-EXTRUSION DIE REPAIRER [address] [place] [address] Referral ID Status Reason Start Date Expiration Date V isits Requested Visits Authorized [id number] New Request 02/22/2023 03/18/2024 1 1 Specialty Diagnoses / Procedures Referred By Contact Referred To Contact [facility] Diagnoses Arthritis of left ankle Majo Nelson, TEENAGE PROGRAM DIRECTOR-EXTRUSION DIE REPAIRER [address] [place] [address] Referral ID Status Reason Start Date Expiration Date V isits Requested Visits Authorized [id number] New Request 05/04/2023 05/28/2024 1 1 Scheduling Instructions [facility] at [address] Room: [address] [address] [phone] FAX [facility] [place] [address] [place] [address] FAX [facility] at [facility] [address] [place], [place] [address] FAX [facility] [place] [address] [place], [place] [address] FAX [facility] [address] [place] [address] FAX Outpatient Rehabilitation [facility] [place] [address], [address] [place] [address] FAX [facility] [address] [address] [place] [address] FAX Continued on next page [facility] [place] [address] [place] [address] FAX [facility] [address] [place] [address] FAX Outpatient Rehabilitation Outpatient [facility] [place] [id number] [facility] [address] [place] [address] [phone] FAX [facility] at [facility] [address] [place] [address] FAX Outpatient [facility] [address] [place] [address] FAX [facility] at [facility], Room [address] [place] [address] [phone] FAX Specialty Diagnoses / Procedures Referred By Contac t Referred To Contact Diagnoses Left ankle pain, unspecified chronicity Procedures XR ANKLE LEFT 3+ VIEWS Majo Nelson, TEENAGE PROGRAM DIRECTOR-EXTRUSION DIE REPAIRER [address] [place] [address] Referral ID Status Reason Start Date Expiration Date V isits Requested Visits Authorized [id number] New Request 06/13/2023 07/07/2024 1 1 Referral ID Status Reason Start Date Expiration Date V isits Requested Visits Authorized [id number] New Request 09/14/2023 10/08/2024 1 1 Specialty Diagnoses / Procedures Referred By Contac t Referred To Contact Radiology Diagnoses Arthropathy of ankle and foot Procedures CT ANKLE LEFT WO CONTRAST Anant Malik, SOFIA [address] [facility] [address] [place] [address] Referral ID Status Reason Start Date Expiration Date Visits Re quested Visits Authorized [id number] Closed 07/18/2024 07/31/2025 1 1 Additional Source Comments (unrecognized sect ion and content) No Status Records FoundNo Status Records FoundNo Status Records FoundNo Status Records FoundNo Status Records FoundNo Status Records Found INFORMATION SOURCE (unrecogn ized section and content) DATE CREATED AUTHOR 11/01/2018 [facility] DATE CREATED AUTHOR AUTHOR'S ORGANIZ ATION 09/16/2021 [facility] DATE CREATED AUTHOR AUTHOR'S ORGANIZ ATION 09/07/2022 [facility] DATE CREATED AUTHOR AUTHOR'S ORGANIZ ATION 04/25/2024 [facility] DATE CREATED AUTHOR AUTHOR'S ORGANIZ ATION 08/19/2024 [facility] DATE CREATED AUTHOR AUTHOR'S ORGANIZ ATION 09/04/2024 [facility] Reason for Visit (unrecogniz ed section and content) Status Reason Specialty Diagnoses / Procedures Referre d By Contact Referred To Contact Diagnoses Pain in left shoulder [facility] [address] [place] [address] [facility] Reason Comments Cough been going on for [...] WO & W CONT Sol Corrigan MD [address] [place] [address] [facility] [address] [place] [address] Status Reason Specialty Diagnoses / Procedures Referre d By Contact Referred To Contact Diagnoses Lumbar spondylosis LUMBAR SPONDYLOSIS, LUMBAR SACRAL SPONDYLOSIS Procedures TX INJ DX/THER AGNT PARAVERT FACET JOINT, LUMBAR/SAC, 1ST LEVEL TX INJ DX/THER AGNT PARAVERT FACET JOINT, LUMBAR/SAC, 2ND LEVEL LUMBAR FACET, L4-L5 L5-S1 Aroldo Montejo MD [address] [place] [address] [facility] [employer] Status Reason Specialty Diagnoses / Procedures Re ferred By Contact Referred To Contact Diagnoses Spondylosis without myelopathy or radiculopathy, lumbar region LUMBOSACRAL SPONDYLOSIS, LUMBAR SPONDYLOSIS Procedures TX RADIOFREQUENCY NEUROTOMY LUMBAR OR SACRAL, W IMAGE GUIDANCE, SINGLE TX RADIOFREQ NEUROTOMY LUMBAR OR SACRAL, W IMAGE GUIDE,EA ADDL LEVEL LUMBAR RFA-L2, L3, L4, L5 Aroldo Montejo MD [address] [place] [address] [facility] Status Reason Specialty Diagnoses / Procedures Referre d By Contact Referred To Contact Diagnoses Rotator cuff arthropathy of right shoulder ROTATOR CUFF ARTHROPATHY RIGHT SHOULDER Procedures TX RECONSTR TOTAL SHOULDER IMPLANT SHOULDER TOTAL ARTHROPLASTY REVERSE Yovanny Cunha MD [address] [place] [address] [facility] Reason Comments Ankle Pain Left ankle pain, [...] ankle pain Pardeep Infante A, DO [address] [facility] [address] [place] [address] [facility] [address] [place] [address] Referral ID Status Reason Start Date Expiration Date Visits Re quested Visits Authorized [id number] 1 1 Reason Comments Ankle Pain Left ankle Specialty Diagnoses / Procedures Referred By Contac t Referred To Contact Diagnoses Posterior tibial tendinitis of left leg M76.822 (ICD-10-CM) - Posterior tibial tendinitis of left leg Procedures TX ARTHROSCOPY ANKLE SURGICAL DEBRIDEMENT LIMITED TX ARTHRODESIS SUBTALAR TX RPR PRIMARY DISRUPTED LIGAMENT ANKLE COLLATERAL TX TR/TRNSPL 1 TDN W/[facility] REDIRION/REROUTING DP ANKLE ARTHROSCOPY-WITH DEBRIDEMENT FOOT ARTHRODESIS--STJ ANKLE LIGAMENT TENDON REPAIR--PRIMARY REPAIR OF DELTOID LIGAMENT, FOOT TENDON TRANSFER REPAIR--PRIMARY REPAIR OF PERONEUS BREVIS TENDON WITH POSSIBLE PERONEAL TENDON TRANSFER, FDL TO PT TENDON TRANSFER, COTTON PROCEDURE Akil Saini, DPM [address] [place] [address] [facility] [address] [place] [address] Referral ID Status Reason Start Date Expiration Date Visits Re quested Visits Authorized [id number] 1 1 Specialty Diagnoses / Procedures Referred By Jamila brown Referred To Contact Diagnoses Staphylococcal arthritis of left ankle Procedures XR ANKLE LEFT 3+ VIEWS Cristopher Moreira MD [address] [place] [address] Referral ID Status Reason Start Date Expiration Date V isits Requested Visits Authorized [id number] New Request 12/22/2022 01/16/2024 1 1 Reason [...] FOOT LEFT 3 VIEWS Cristopher Moreira MD [address] [place] [address] Referral ID Status Reason Start Date Expiration Date V isits Requested Visits Authorized [id number] New Request 02/13/2023 03/09/2024 1 1 Specialty Diagnoses / Procedures Referred By Jamila brown Referred To Contact Diagnoses Arthritis of left subtalar joint Procedures XR ANKLE LEFT 3+ VIEWS Cristopher Moreira MD [address] [place] [address] Referral ID Status Reason Start Date Expiration Date V isits Requested Visits Authorized [id number] New Request 02/13/2023 03/09/2024 1 1 Reason Comments Preoperative Assessment Specialty Diagnoses / Procedures Referred By Jamila t Referred To Contact Diagnoses 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 ankle [M19.072] Arthritis of left subtalar joint [M19.072] Procedures TX ANKLE SCOPE,W/ANKLE ARTHRODESIS TX FUSION FOOT BONES,SUBTALAR TX REMV BONE FOR GRAFT MAJOR ARTHROSCOPY ANKLE W/ ARTHRODESIS ARTHRODESIS TARSAL JOINT HARVEST GRAFT BONE LARGE DONOR AREA Cristopher Moreira MD [address] [place] [address] [facility] [address] [place] [address] Referral ID Status Reason Start Date Expiration Date Visits Re quested Visits Authorized [id number] 1 1 Reason Onset Date Comments Order [...] XR ANKLE LEFT 3+ VIEWS Majo Nelson, TEENAGE PROGRAM DIRECTOR-EXTRUSION DIE REPAIRER [address] [place] [address] Referral ID Status Reason Start Date Expiration Date V isits Requested Visits Authorized [id number] New Request 06/13/2023 07/07/2024 1 1 Reason [...] Expiration Date V isits Requested Visits Authorized [id number] New Request 09/14/2023 10/08/2024 1 1 Specialty Diagnoses / Procedures Referred By Jamila brown Referred To Contact Diagnoses Posterior tibial tendinitis, unspecified leg [facility] [address] [place] [address] [facility] [address] [place] [address] Referral ID Status Reason Start Date Expiration Date Visits Re quested Visits Authorized [id number] 1 1 Reason Comments Follow-up Pt reports for 10.5m POV TTC arthrodesis. Pt reports L foot pain. Pt states pain has been present ever since surgery. Pt states pain has been stable since surgery. Pain exacerbated by weightbearing. Follow-up Specialty Diagnoses / Procedures Referred By Jamila brown Referred To Contact Diagnoses Plantar fascial fibromatosis [facility] [address] [place] [address] [facility] [address] [place] [address] Referral ID Status Reason Start Date Expiration Date Visits Re quested Visits Authorized [id number] 1 1 Reason Comments Follow-up Pt reports for L TTC fusion 15m FUV. Pt reports constant pain. Pt reports pain has been getting worse since AMY. Specialty Diagnoses / Procedures Referred By Jamila brown Referred To Contact Radiology Diagnoses Arthropathy of ankle and foot Procedures CT ANKLE LEFT WO CONTRAST Anant Malik, SOFIA [address] [place] [address] Referral ID Status Reason Start Date Expiration Date Visits Re quested Visits Authorized [id number] Closed 07/18/2024 07/31/2025 1 1 Scheduled Active [...] Estevez RN) 0230 (Given - Provider: Heide sEtevez RN - Comment: provider approved, Suze Cid) ceFAZolin (ANCEF) 2000 mg in sterile water 20 mL IV syringe (COMPLETED) 2,000 mg, IntraVENous, BIKE DESIGNER TO O.R., 1 dose, On Mon06/24/22 at 0315, Antimicrobial Indications: Surgical Prophylaxis, Do not administer on the floor. Please transport to OR with pt on day of surgery. Thank you Administer over 5 mins. 0956 (JAN Hold - Provider: Stella Autohold - Reason: Unreviewed Transfer Orders)1142 (Given - Provider: Lora Schneider, RN - Comment: given after culture per sx)1142 ([facility] Unhold - Provider: Lora Schneider RN) [...] Ximena Crow RN - Reason: Pt NPO)0956 ([facility] Hold - Provider: Stella Autohold - Reason: Unreviewed Transfer Orders)1418 ([facility] Unhold - Provider: Ximena Crow RN) [...] Comment: already given)0956 (JAN Hold - Provider: [facility] Autohold - Reason: Unreviewed Transfer Orders)1418 (JAN [...] Reason: Pt NPO)0956 (JAN Hold - Provider: [facility] Autohold - Reason: Unreviewed Transfer Orders)1418 (JAN [...] of order. 0956 (MAR Hold - Provider: [facility] Autohold - Reason: Unreviewed Transfer Orders)1418 ([facility] Unhold - Provider: Ximena Crow, WILLY) [...] dose of medication and as needed. 0956 ([facility] Hold - Provider: [facility] Autohold - Reason: Unreviewed Transfer Orders)1418 ([facility] Unhold - Provider: Ximena Crow RN) [...] dose of medication and as needed. 0956 ([facility] Hold - Provider: [facility] Autohold - Reason: Unreviewed Transfer Orders)1418 ([facility] Unhold - Provider: Ximena Crow RN) [...] dose of medication and as needed. 0956 ([facility] Hold - Provider: [facility] Autohold - Reason: Unreviewed Transfer Orders)1418 ([facility] Unhold - Provider: Ximena Crow RN) LORazepam (ATIVAN) tablet 1 mg(Linked Group 1) 1 mg, Oral, EVERY 1 HOUR PRN (WITHDRAWAL), Starting on Mon06/24/22 at 0705, Until Discontinued, For alcohol withdrawal., For CIWA score 8 to 10. Reassess CIWA one hour after each dose of medication and as needed. 0956 ([facility] Hold - Provider: [facility] Autohold - Reason: Unreviewed Transfer Orders)1418 ([facility] Unhold - Provider: Ximena Crow RN) LORazepam (ATIVAN) tablet 2 mg(Linked Group 1) 2 mg, Oral, EVERY 1 HOUR PRN (WITHDRAWAL), Starting on Mon06/24/22 at 0705, Until Discontinued, For alcohol withdrawal., For CIWA score 11 to 15. Reassess CIWA one hour after each dose of medication and as needed. 0956 ([facility] Hold - Provider: [facility] Autohold - Reason: Unreviewed Transfer Orders)1418 ([facility] Unhold - Provider: Ximena Crow RN) LORazepam (ATIVAN) tablet 3 mg(Linked Group 1) 3 mg, Oral, EVERY 1 HOUR PRN (WITHDRAWAL), Starting on Mon06/24/22 at 0705, Until Discontinued, For alcohol withdrawal., For CIWA score 16 to 20. Reassess CIWA one hour after each dose of medication and as needed. 0956 ([facility] Hold - Provider: [facility] Autohold - Reason: Unreviewed Transfer Orders)1418 ([facility] Unhold - Provider: Ximena Crow RN) LORazepam (ATIVAN) tablet 4 mg(Linked Group 1) 4 mg, Oral, EVERY 1 HOUR PRN (WITHDRAWAL), Starting on Mon06/24/22 at 0705, Until Discontinued, For alcohol withdrawal., For CIWA score greater than 20. Reassess CIWA one hour after each dose of medication and as needed. 0956 ([facility] Hold - Provider: [facility] Aut[employer] - Reason: Unreviewed Transfer Orders)1418 ([facility] Unhold - Provider: Ximena Crow RN) melatonin tablet 5 mg 5 mg, Oral, NIGHTLY PRN, Starting on Mon06/25/22 at 0340, Until Discontinued, Sleep 0359 (Given - Provider: Heide Estevez RN)2321 (Given - Provider: Aleah Rose RN) methocarbamol (ROBAXIN) tablet 750 mg 750 mg, Oral, 4 TIMES DAILY PRN, Starting on Mon06/24/22 at 0234, Until Discontinued, Muscle spasms 0956 ([facility] Hold - Provider: [facility] Autohold - Reason: Unreviewed Transfer Orders)1418 ([facility] Unhold - Provider: Ximena Crow RN) [...] of each other unless specifically ordered. 0956 ([facility] Hold - Provider: [facility] Autohold - Reason: Unreviewed Transfer Orders)1418 ([facility] Unhold - Provider: Ximena Crow RN) [...] of each other unless specifically ordered. 0956 ([facility] Hold - Provider: [facility] Autoh[employer] - Reason: Unreviewed Transfer Orders)1418 ([facility] Unhold - Provider: Ximena Crow RN) naproxen (NAPROSYN) tablet 500 mg 500 mg, Oral, DAILY PRN, Starting on Mon06/24/22 at 0235, Until Discontinued, Pain Moderate (4-6) 0956 ([facility] Hold - Provider: [facility] [employer] - Reason: Unreviewed Transfer Orders)1418 ([facility] Unhold - Provider: Ximena Crow RN) 0845 (Given - Provider: Ximena Crow RN) ondansetron (ZOFRAN) injection 4 mg(Linked Group 3) 4 mg, IntraVENous, EVERY 6 HOURS PRN, Starting on Mon06/24/22 at 0235, Until Discontinued, Nausea, Vomiting, Administer if oral route cannot be used. 0956 ([facility] Hold - Provider: [facility] Autoh[employer] - Reason: Unreviewed Transfer Orders)1418 ([facility] Unhold - Provider: Ximena Crow RN) ondansetron (ZOFRAN-ODT) disintegrating tablet 4 mg(Linked Group 3) 4 mg, Oral, EVERY 8 HOURS PRN, Starting on Mon06/24/22 at 0235, Until Discontinued, Nausea, Vomiting 0956 ([facility] Hold - Provider: [facility] Aut[employer] - Reason: Unreviewed Transfer Orders)1418 ([facility] Unhold - Provider: Ximena Crow RN) [...] for constipation 0956 (JAN Hold - Provider: [facility] Autohold - Reason: Unreviewed Transfer Orders)1418 (JAN [...] or Central Line = 20 mL/lumen 0956 ([facility] Hold - Provider: Stella Autohold - Reason: Unreviewed Transfer Orders)1418 ([facility] Unhold - Provider: Ximena Crow RN) [...] or Central Line = 20 mL/lumen 0956 ([facility] Hold - Provider: Stella Autohold - [...] specifically ordered. 1516 (Given - Provid er: Aanyeli Bustos RN) oxyCODONE-acetaminophen (PERCOCET) 5-325 MG per [...] (NoRateChange - Provider: Rosemarie Almaraz APRN - SHIPPING PROCESSOR)1236 (New Bag - Provider: Rosemarie Almaraz APRN - SHIPPING PROCESSOR)1339 (Rate/Dose Change - Provider: GRUPO Zeng SHIPPING PROCESSOR)1444 (Stopped - Provider: Ayleen Acosta RN) PRN [...] 1700, Until Discontinued 0843 (Given - Provider: Thasi Servin, Student Nurse)1704 (Given - Provider: Jaime Arciniega RN) 1005 (Given - Provider: Dai [...] Provider: Jakob Hernandez) 1007 (Given - Provider: Dia Montana RN) 0829 (Given - Provider: Fatuma [...] - 30 = 3 mg and call Strategy Manager; 31 - 45 = 4 mg and call Strategy Manager. Extravasation Risk LORazepam (ATIVAN) injection 2 mg(Linked [...] - 30 = 3 mg and call Strategy Manager; 31 - 45 = 4 mg and call Strategy Manager. LORazepam (ATIVAN) tablet 1-4 mg(Linked Group 6) 1-4 mg, Per NG tube, EVERY 1 HOUR NEEDED, Starting on Mon12/30/22 at 1901, Until Mon01/02/23 at 1803, Other, CIWA score, Titrate to CIWA score: CIWA 8 - 14 = 1 mg; 15 - 20 = 2 mg; 21 - 30 = 3 mg and call Strategy Manager; 31 - 45 = 4 mg and call Strategy Manager. LORazepam (ATIVAN) tablet 2 mg(Linked Group 7) [...] - 30 = 3 mg and call Strategy Manager; 31 - 45 = 4 mg and call Strategy Manager. Extravasation Risk
Or LORazepam (ATIVAN) tablet 1-4 mgJump to med 1-4 mg, Oral, EVERY 1 HOUR NEEDED, Starting on Mon12/30/22 at 1901, Until Mon01/02/23 at 1803, Other, CIWA score
Titrate to CIWA score: CIWA 8 - 14 = 1 mg; 15 - 20 = 2 mg; 21 - 30 = 3 mg and call Strategy Manager; 31 - 45 = 4 mg and call Strategy Manager.
Or LORazepam (ATIVAN) tablet 1-4 mgJump to med 1-4 mg, Per NG tube, EVERY 1 HOUR NEEDED, Starting on Mon12/30/22 at 1901, Until Mon01/02/23 at 1803, Other, CIWA score
Titrate to CIWA score: CIWA 8 - 14 = 1 mg; 15 - 20 = 2 mg; 21 - 30 = 3 mg and call Strategy Manager; 31 - 45 = 4 mg and call Strategy Manager.
Group 7: LORazepam (ATIVAN) tablet 1 mgJump [...] Carissa Conner RN - Comment: approved) Lidocaine-epinephrine 1%-1:124729 injection (CANCELED) NEEDED, Starting on Mon02/28/23 at [...] Care Teams (unrecognized sec tion and content) Cco & President Relationship Specialty Start Date End Date [facility] [address] [place] [address] [address] [place] [address] PCP - General Other 05/19/21 Cco & President Relationship Specialty Start Date End Date [facility] [place], Other [address] [place] [phone] PCP - General Other 05/19/21 Cco & President Relationship Specialty Start Date End Date [facility] [place], Other [address] [place] [phone] PCP - General Other 05/19/[address] MD [address] [facility] [place] [phone] Infectious Disease Infectious Disease 01/03/23 02/08/23 Barbie Mendoza, TEENAGE PROGRAM DIRECTOR-EXTRUSION DIE REPAIRER [address] [place] [address], [place] [phone] Certified Nurse Practitioner 01/03/23 02/10/23 Cco & President Relationship Specialty Start Date End Date [facility] [place], Other [address] [place] [phone] PCP - General Other 05/19/[address] MD [address] [place] [address], [place] [phone] Infectious Disease Infectious Disease 01/03/23 02/08/23 Barbie Mendoza, TEENAGE PROGRAM DIRECTOR-EXTRUSION DIE REPAIRER [address] [place] [address], [place] [phone] Certified Nurse Practitioner 01/03/23 02/10/23 Cco & President Relationship Specialty Start Date End Date [facility] [place], Other [address] [place] [phone] PCP - General Other 05/19/21 Cco & President Relationship Specialty Start Date End Date [facility] [place], Other [address] [place] [address] PCP - General Other 05/19/21 Cco & President Relationship Specialty Start Date End Date [facility] [place], Other [address] [place] [address] PCP - General Other 05/19/21 Cco & President Relationship Specialty Start Date End Date [facility] - [place], Other [address] [place] [address] PCP - General Other 05/19/21 Cco & President Relationship Specialty Start Date End Date [facility] - [place], Other [address] [place] [address] PCP - General Other 05/19/21 Cco & President Relationship Specialty Start Date End Date [facility] - [place], Other [address] [place] [address] PCP - General Other 05/19/21 Cco & President Relationship Specialty Start Date End Date [facility] - [place], Other [address] [place] [address] PCP - General Other 05/19/21 Cco & President Relationship Specialty Start Date End Date [facility] - [place], Other [address] [place] [address] PCP - General Other 05/19/21 Cco & President Relationship Specialty Start Date End Date [facility] - [place], Other [address] [place] [address] PCP - General Other 05/19/21 Cco & President Relationship Specialty Start Date End Date [facility] - [place], Other [address] [place] [address] PCP - General Other 05/19/21 Cco & President Relationship Specialty Start Date End Date [facility] - [place], Other [address] [place] [address] PCP - General Other 05/19/21 Cco & President Relationship Specialty Start Date End Date [facility] - [place], Other [address] [place] [address] PCP - General Other 05/19/21 Cco & President Relationship Specialty Start Date End Date [facility] - [place], Other [address] [place] [address] PCP - General Other 05/19/21 Cco & President Relationship Specialty Start Date End Date [facility] - [place], Other [address] [place] [address] PCP - General Other 05/19/21 FOR RECORDS [...] BE BASED ON THE PRIMARY CLINICAL RECORDS. [facility]. provides no warranty or guarantee of the accuracy or completeness of information in this document."
== END 2024-09-18 13:04 | disposition home or self-care (01) ==
LOC: SURGOUT 07:15 → MS 13:58 → SURGOUT 09-18 10:11 → MS 09-18 10:47
PROVIDERS: Anesthesiology; Internal Medicine; Visit Provider Podiatrist Foot & Ankle Surgery
PROC: (CPT 1480; principal; 2024-09-17 09:40)
DX: M96.0 Pseudarthrosis after fusion or arthrodesis (principal); M19.072 Primary osteoarthritis, left ankle and foot; M54.9 Dorsalgia, unspecified; G89.29 Other chronic pain; G25.81 Restless legs syndrome; T84.84XA Pain due to internal orthopedic prosthetic devices, implants and grafts, initial encounter; Z79.899 Other long term (current) drug therapy; F10.20 Alcohol dependence, uncomplicated; M25.572 Pain in left ankle and joints of left foot; M21.072 Valgus deformity, not elsewhere classified, left ankle
CPT/HCPCS: 20680; 28320; 28725; 36415; 64445; 64447; 73610; 76000; 80048; 80053; 82948; 85025; 87070; 87102; 87116; 87205; 87206; 93005; 94761; 97161; 99999; C1713; J0690; J1100; J1171; J1650; J1805; J1885; J2250; J2371; J2405; J2704; J2795; J3010; J3370

== ENCOUNTER 2024-10-16 13:30 | Outpatient (OUT) | payer OTHER, SELFPAY ==
--- NOTE | 2024-10-16 13:42 | XR_ITS ---
The [address] [address] Patient Name: GEO CARRASQUILLO MRN: [id number] date: 1955 Sex: M Assigned Patient Location: [facility] Current Patient Location: Accession/Order Number: [id number] Exam Date: 10/16/2024 13:52 Report Date: 10/17/2024 07:18 At the request of: ANANT MALIK Procedure: XR ankle LT min 3V PROCEDURE: XR ankle LT min 3V COMPARISON: 09/17/2024 HISTORY: Left Ankle Pain FINDINGS: BONES:Evidence of now removed ankle fusion hardware. 2 cannulated screws across the hindfoot 1 extending from the distal tibia through the talus into the posterior calcaneus second through the anterior talocalcaneal joint. Underlying degenerative changes. Remote distal fibular resection SOFT TISSUES:Negative. No visible soft tissue swelling. EFFUSION:None visible. OTHER: Details obscured by an overlying fiberglass cast XR/XR ankle LT min 3V IMPRESSION: Stable degenerative and postsurgical changes Electronically authenticated by: CAS MENDIOLA Date: 10/17/2024 07:18
== END 2024-10-16 13:31 | disposition home or self-care (01) ==
LOC: RAD 13:30
PROVIDERS: Visit Provider Podiatrist Foot & Ankle Surgery
DX: M25.572 Pain in left ankle and joints of left foot (principal); Z98.890 Other specified postprocedural states
CPT/HCPCS: 73610

== ENCOUNTER 2024-10-30 13:17 | Outpatient (OUT) | payer OTHER, SELFPAY ==
--- NOTE | 2024-10-30 13:20 | XR_ITS ---
The [address] [address] Patient Name: GEO CARRASQUILLO MRN: [id number] date: 1955 Sex: M Assigned Patient Location: [facility] Current Patient Location: Accession/Order Number: [id number] Exam Date: 10/30/2024 13:30 Report Date: 10/31/2024 06:17 At the request of: ANANT MALIK Procedure: XR ankle LT min 3V PROCEDURE: XR ankle LT min 3V HISTORY: Pain In Left Ankle COMPARISON: XR ankle left 10/16/2024 FINDINGS: BONES:Mechanical fusion of the ankle joint and hindfoot via 2 screws. Prior removal of medullary peter. Prior resection of lateral malleolus. SOFT TISSUES:Soft tissue swelling surrounding the ankle. Atherosclerotic disease. EFFUSION:None visible. OTHER: Negative. XR/XR ankle LT min 3V IMPRESSION: 1. Stable surgical changes without evidence of hardware failure or change in alignment. Electronically authenticated by: AIME MCCALL Date: 10/31/2024 06:17
== END 2024-10-30 13:18 | disposition home or self-care (01) ==
LOC: RAD 13:17
PROVIDERS: Visit Provider Podiatrist Foot & Ankle Surgery
DX: M25.572 Pain in left ankle and joints of left foot (principal); M24.672 Ankylosis, left ankle; Z98.890 Other specified postprocedural states
CPT/HCPCS: 73610

== ENCOUNTER 2024-11-20 12:03 | Outpatient (OUT) | payer OTHER, SELFPAY ==
--- NOTE | 2024-11-20 12:06 | XR_ITS ---
The [place] [id number] Patient Name: GEO CARRASQUILLO MRN: [id number] date: 1955 Sex: M Assigned Patient Location: [facility] Current Patient Location: [facility] Accession/Order Number: [id number] Exam Date: 11/20/2024 12:14 Report Date: 11/20/2024 12:51 At the request of: ANANT MALIK Procedure: XR calcaneus LT min 2V PROCEDURE: XR calcaneus LT min 2V COMPARISON: 10/30/2024 HISTORY: HEEL PAIN FINDINGS: BONES:Evidence of now removed ankle fusion hardware. Stable fusion utilizing 2 cannulated screws. Bony bridging across the tibiotalar joint. No bony bridging across the talocalcaneal joints SOFT TISSUES:Negative. No visible soft tissue swelling. EFFUSION:None visible. OTHER: Vascular calcifications XR/XR calcaneus LT min 2V IMPRESSION: Stable degenerative and postsurgical changes Electronically authenticated by: CAS MENDIOLA Date: 11/20/2024 12:51
== END 2024-11-20 12:04 | disposition home or self-care (01) ==
LOC: RAD 12:03
PROVIDERS: Visit Provider Podiatrist Foot & Ankle Surgery
DX: M79.672 Pain in left foot (principal); M24.672 Ankylosis, left ankle
CPT/HCPCS: 73650

== ENCOUNTER 2024-12-18 13:52 | Outpatient (OUT) | payer OTHER, SELFPAY ==
--- NOTE | 2024-12-18 | XR_ITS ---
The [place] [id number] Patient Name: GEO CARRASQUILLO MRN: [id number] date: 1955 Sex: M Assigned Patient Location: [facility] Current Patient Location: [facility] Accession/Order Number: [id number] Exam Date: 12/18/2024 13:53 Report Date: 12/23/2024 09:00 At the request of: ANANT MALIK Procedure: XR calcaneus LT min 2V PROCEDURE: XR calcaneus LT min 2V COMPARISON: 11/20/2024 HISTORY: LEFT CALCANEUS PAIN FINDINGS: BONES:Stable hindfoot fusion utilizing 2 cannulated screws. Evidence of now removed ankle fusion hardware. Severe degenerative changes with joint space narrowing marginal osteophyte formation. No significant bony bridging across the talocalcaneal joint SOFT TISSUES:Extensive soft tissue calcifications EFFUSION:None visible. OTHER: Negative. XR/XR calcaneus LT min 2V IMPRESSION: Stable hindfoot fusion with no significant interval bony bridging Electronically authenticated by: CAS MENDIOLA Date: 12/23/2024 09:00
== END 2024-12-18 13:53 | disposition home or self-care (01) ==
LOC: RAD 13:53
PROVIDERS: Visit Provider Podiatrist Foot & Ankle Surgery
DX: M79.672 Pain in left foot (principal); M24.675 Ankylosis, left foot
CPT/HCPCS: 73650

== ENCOUNTER 2025-01-07 13:56 | Outpatient (OUT) | payer OTHER, SELFPAY ==
--- NOTE | 2025-01-07 | XR_ITS ---
The [address] [address] Patient Name: GEO CARRASQUILLO MRN: [id number] date: 1955 Sex: M Assigned Patient Location: [facility] Current Patient Location: [facility] Accession/Order Number: [id number] Exam Date: 01/07/2025 15:26 Report Date: 01/07/2025 15:39 At the request of: ANANT MALIK DPM Procedure: XR foot LT min 3V CLINICAL DATA: Left foot and ankle pain. History of ankle fusion WITH revision September 2024 LEFT ANKLE - 3 views COMPARISON: 10/30/2024 AP, lateral and oblique views were obtained. There is osteopenia. There is redemonstration of fusion of the ankle and talocalcaneal joints with the presence of 2 screws. Hardware is unchanged. Appearance of the underlying bony structures are stable. There is evidence of a prior peter extending from the tibia through the subtalar joints which has been removed. There is prior osteotomy at the distal fibula. There is no acute fracture or dislocation. Mild soft tissue swelling is present. There is atherosclerotic disease.. XR/XR foot LT min 3V IMPRESSION: SIMILAR POSTOPERATIVE CHANGES. NO ACUTE BONY FINDINGS. WEIGHTBEARING LEFT FOOT - 4 views COMPARISON: 07/30/2024 AP, lateral, oblique and tangential calcaneal views were obtained. There is osteopenia. The medullary peter extending from the distal tibia through the talus and calcaneus on the prior has been removed. There are now 2 different screws extending through the talocalcaneal joints, one of which also appears to extend to the distal talus. No developing fracture or dislocation are seen. There is mild degenerative change at the first metatarsal phalangeal joint. Soft tissue swelling is present at the ankle. IMPRESSION: POSTOPERATIVE CHANGES, DESCRIBED. NO ACUTE BONY INJURY. Impression dictated by: Carline Purvis M.D.01/07/2025 3:39 PM Dictation Location: [place] [address] Electronically authenticated by: [id number] Y Date: 01/07/2025 15:39
--- NOTE | 2025-01-07 | XR_ITS ---
The [address] [address] Patient Name: GEO CARRASQUILLO MRN: [id number] date: 1955 Sex: M Assigned Patient Location: [facility] Current Patient Location: Accession/Order Number: [id number] Exam Date: 01/07/2025 15:26 Report Date: 01/07/2025 15:39 At the request of: ANANT MALIK DPM Procedure: XR foot LT min 3V CLINICAL DATA: Left foot and ankle pain. History of ankle fusion WITH revision September 2024 LEFT ANKLE - 3 views COMPARISON: 10/30/2024 AP, lateral and oblique views were obtained. There is osteopenia. There is redemonstration of fusion of the ankle and talocalcaneal joints with the presence of 2 screws. Hardware is unchanged. Appearance of the underlying bony structures are stable. There is evidence of a prior peter extending from the tibia through the subtalar joints which has been removed. There is prior osteotomy at the distal fibula. There is no acute fracture or dislocation. Mild soft tissue swelling is present. There is atherosclerotic disease.. XR/XR ankle LT min 3V IMPRESSION: SIMILAR POSTOPERATIVE CHANGES. NO ACUTE BONY FINDINGS. WEIGHTBEARING LEFT FOOT - 4 views COMPARISON: 07/30/2024 AP, lateral, oblique and tangential calcaneal views were obtained. There is osteopenia. The medullary peter extending from the distal tibia through the talus and calcaneus on the prior has been removed. There are now 2 different screws extending through the talocalcaneal joints, one of which also appears to extend to the distal talus. No developing fracture or dislocation are seen. There is mild degenerative change at the first metatarsal phalangeal joint. Soft tissue swelling is present at the ankle. IMPRESSION: POSTOPERATIVE CHANGES, DESCRIBED. NO ACUTE BONY INJURY. Impression dictated by: Carline Purvis M.D.01/07/2025 3:39 PM Dictation Location: [place] [address] Electronically authenticated by: [id number] Y Date: 01/07/2025 15:39
== END 2025-01-07 13:57 | disposition home or self-care (01) ==
LOC: RAD 13:56
PROVIDERS: Visit Provider Podiatrist Foot & Ankle Surgery
DX: M25.572 Pain in left ankle and joints of left foot (principal); M85.872 Other specified disorders of bone density and structure, left ankle and foot; Z98.890 Other specified postprocedural states
CPT/HCPCS: 73610; 73630

== ENCOUNTER 2025-10-08 13:07 | Outpatient (OUT) | payer MEDICARE, SELFPAY ==
--- NOTE | 2025-10-08 13:39 | XR_ITS ---
The [address] [address] Patient Name: GEO CARRASQUILLO MRN: [id number] date: 1955 Sex: M Assigned Patient Location: [facility] Current Patient Location: [facility] Accession/Order Number: [id number] Exam Date: 10/08/2025 13:45 Report Date: 10/08/2025 16:25 At the request of: ANANT MALIK DPTrae Procedure: XR ankle LT min 3V XR ankle LT min 3V 10/08/2025 1:51 PM SIGNS AND SYMPTOMS: ^Pain PROTOCOL: 3 views of the left ankle COMPARISON: 02/07/2025 FINDINGS: There is evidence of previous tibiotalar and subtalar fusion with lucency surrounding the subtalar fusion screws suspicious for hardware loosening. No fracture or dislocation. Severe degenerative changes are noted in the hindfoot. There is diffuse soft tissue swelling. XR/XR ankle LT min 3V IMPRESSION: There is evidence of previous tibiotalar and subtalar fusion with lucency surrounding the subtalar fusion screws suspicious for hardware loosening. No fracture or dislocation. There is diffuse soft tissue swelling. Impression dictated by: Sammy Lawton M.D. 10/08/2025 4:25 PM [facility]ictation [facility] Electronically authenticated by: [id number] Y Date: 10/08/2025 16:25
== END 2025-10-08 13:08 | disposition home or self-care (01) ==
LOC: RAD 13:12
PROVIDERS: Visit Provider Podiatrist Foot & Ankle Surgery
DX: M25.572 Pain in left ankle and joints of left foot (principal)
CPT/HCPCS: 73610